=== PATIENT | male | born 1945 | race Caucasian/White ===

== ENCOUNTER 2019-09-23 01:05 | Day surgery (SDC) | payer MEDICARE, SELFPAY ==
[2019-09-23] VITALS (12 sets, daily range): BP systolic 116–165; BP diastolic 82–126; PULSE 78–105; RESP 10–24; TEMP 36.1; O2SAT 92–98; BMI 33.6
--- NOTE | 2019-09-23 09:30 | SUR.PREOP ---
ARRIVES TO [facility] W/ AT SIDE FOR SCHEDULED HALEY W/ DR. CORDON. A&OX3, STEADY GAIT. DENIES CP OR SOB. ORIENTED TO ROOM AND PLAN, PROCEDURE. QUESTIONS ANSWERED. IV STARTED, VS OBTAINED, CONSENT SIGNED. WILL MONITOR.
--- NOTE | 2019-09-23 10:58 | WPDMODSED ---
Moderate Sedation Note-Pt Data Patient Data Allergies Allergy/AdvReac Type Severity Reaction Status Date / Time No Known Allergies Allergy Unknown Unverified 09/23/19 09:59 Home Medications Medication Instructions Recorded Confirmed Type amlodipine 10 mg PO DAILY 07/14/19 09/23/19 History atorvastatin 80 mg PO DAILY 07/14/19 09/23/19 History acetaminophen [Mapap 650 mg PO Q4H PRN #60 tablet 07/15/19 09/23/19 Rx (acetaminophen)] apixaban [Eliquis] 5 mg PO Q12HR #60 tablet 07/15/19 09/23/19 Rx potassium chloride 20 meq PO DAILY #60 tablet 07/15/19 09/23/19 Rx hydralazine 50 mg tablet 75 mg PO TID #270 tablet 09/02/19 09/23/19 Rx metoprolol succinate 200 mg 200 mg PO DAILY #90 tablet 09/02/19 09/23/19 Rx tablet,extended release 24 hr furosemide 20 mg PO BID 09/23/19 09/23/19 History potassium chloride 10 meq PO 1400 09/23/19 09/23/19 History Sedation/Anesthesia: No previous sedation/anesthesia problems (including family history). [facility] Past Medical History Medical History (HFpEF) heart failure with preserved ejection fraction Arthritis Bronchitis CHF (congestive heart failure) Diverticulitis DM II (diabetes mellitus, type II), controlled History of heart attack History of kidney stones Hypercholesteremia Hypertension Mitral insufficiency Personal history of kidney cancer lt Pulmonary HTN Ulcer Surgical History Surgical History History of angioplasty History of appendectomy History of tonsillectomy Hx of cardiac cath with stent placement Family History Family History Father Colon cancer Social History Social History Social History: 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 , he has 3 children and she has 2 children. Smoking packs per day: 1 Smoking cigarettes per day: 20.0 Years smoked: 25 Smoking pack-years: 25.00 Smoking status: Former smoker Tobacco type: cigarettes Second hand tobacco smoke exposure: No Smoking end date: 08/18/97 Alcohol intake: current Drinks per week: 2 Substance use: never Substance use type: does not use Gender identity (if verbalized by the patient): Male Spiritual care concerns: No Mod Sed Physical Exam Physical Exam Pre Procedural Exam: Normal: Appearance, Eyes, Ears, Nose, Neck, Throat, Airway, Lungs, Heart Size, Heart Rate, Heart Rhythm, Neuro Exam, Abdomen, Liver, Kidneys, Spleen, Breasts, Genitalia, Extremities and Skin Hours since solid foods: 8 Hours since liquid intake: 8 Internal Medicine - PN: Obj Da Vital Signs Vital Signs: Vital Signs - 24 hr 09/23/19 10:30 09/23/19 10:35 09/23/19 10:40 Pulse Rate 93 103 H 105 H Respiratory Rate 10 L 14 Blood Pressure 165/105 H 150/104 H 162/119 H Pulse Oximetry 96 93 93 09/23/19 10:45 09/23/19 10:50 09/23/19 10:55 Pulse Rate 89 94 95 Respiratory Rate 12 20 16 Blood Pressure 162/111 H 154/112 H 154/126 H Pulse Oximetry 98 94 96 ASA Classification/Sedation ASA Classification/Sedation ASA Class: I Emergent: No Risks: Risks, benefits and alternatives explained and patient/family accepted plan for sedation. Patient re-evaluated immediately prior to sedation.
--- NOTE | 2019-09-23 10:58 | WPDHPUPDATE1 ---
History and Physical Update Update Date/Time: 09/23/19 10:58 History and Physical has been reviewed, including an updated exam of the patient. There are NO changes in the patient's condition. Risks, benefits, and alternatives have been discussed and questions answered. Patient agrees to proceed with procedure.
--- NOTE | 2019-09-23 10:58 | WPDTEECHO ---
HALE[facility] TransEsophageal Echocardiogram Date of procedure: 09/23/19 Procedure Type: Date of service: 09/23/2019. 1-transesophageal echocardiogram. 2-moderate sedation that started at 10:28 a.m. and ended that 10:55 a.m. total duration 27 minutes using 5 mg of Versed and 100 mcg of fentanyl. The registered nurse was Lisa Caputo. Diagnosis: This 74-year-old patient with hypertension, diabetes, CKD, renal cancer status post cryoablation to the left kidney, abuse diverticulosis had a STEMI in 2018 and received this stent 3.5 x 20 to the LAD. Also he had high-grade stenosis in mid PDA as well as high-grade stenosis in a small right posterolateral branch. He was recently hospitalized to [facility] end of the 2018 with shortness of breath and was found to have atrial fibrillation. The echocardiogram suggestive of moderate to severe eccentric mitral valve regurgitation. TSH was normal. He was initiated on Eliquis. His creatinine was 2.6. He was brought into the hospital today to undergo transesophageal echocardiogram to further evaluate the mitral valve regurgitation. Indications: Evaluation for mitral valve regurgitation Image Quality: Excellent Findings: 1-left ventricle normal size and systolic function with estimated ejection fraction 55%. 2-right ventricle : Normal size and systolic function. 3-left atrium: Enlarged. 4-right atrium: Normal size. 5-left atrial appendage: No clots. 6-interatrial septum: No evidence of shunt by color Doppler. 7-mitral valve: Thickened anterior mitral valve leaflet tip. Central mitral valve regurgitation. Pisa measured at 0.5 cm. Moderate mitral regurgitation. No stenosis. 8-aortic valve: Trileaflet. Mildly calcified. No stenosis or regurgitation. 9-tricuspid valve: Mild to moderate tricuspid valve regurgitation. RVSP was 30 mm Hg. 10-pulmonic valve: No regurgitation stenosis. 11-pulmonary vein blood flow: Normal with no systolic reversal. 12-ascending aorta: Normal caliber without significant atheroma. 13-descending aorta: Normal caliber without significant atheroma. 14-pericardium: No pericardial effusion. Conclusions: 1-Carmella LV systolic function estimated ejection fraction 55%. 2-moderate mitral valve regurgitation.
== END 2019-09-23 12:30 | disposition home or self-care (01) ==
PROVIDERS: PCP Family Medicine; Visit Provider Internal Medicine Cardiovascular Disease
PROC: (CPT 93312; principal; 2019-09-23 10:00)
DX: I34.0 Nonrheumatic mitral (valve) insufficiency (principal); I36.1 Nonrheumatic tricuspid (valve) insufficiency; I13.0 Hypertensive heart and chronic kidney disease with heart failure and stage 1 through stage 4 chronic kidney disease, or unspecified chronic kidney disease; I50.9 Heart failure, unspecified; E11.22 Type 2 diabetes mellitus with diabetic chronic kidney disease; N18.9 Chronic kidney disease, unspecified; I25.2 Old myocardial infarction; I25.10 Atherosclerotic heart disease of native coronary artery without angina pectoris; Z95.5 Presence of coronary angioplasty implant and graft; Z79.01 Long term (current) use of anticoagulants; E78.00 Pure hypercholesterolemia, unspecified; Z85.528 Personal history of other malignant neoplasm of kidney
CPT/HCPCS: 93312; 93320; 93325; J2250; J3010; J7040

== ENCOUNTER 2019-10-21 05:02 | Day surgery (SDC) | payer MEDICARE, SELFPAY ==
[2019-10-21] VITALS (8 sets, daily range): BP systolic 97–133; BP diastolic 67–110; PULSE 51–76; RESP 14–18; O2SAT 95–100
--- NOTE | 2019-10-21 07:00 | ECG_ITS ---
Measurements Intervals [place] Rate: 75 P: CA: 0 QRS: -30 QRSD: 117 T: 59 QT: 424 QTc: 475 Interpretive Statements ATRIAL FIBRILLATION INTRAVENTRICULAR CONDUCTION DELAY DELAYED PRECORDIAL R/S TRANSITION BORDERLINE ST-T WAVE ABNORMALITY- LATERAL LEADS BASELINE ARTIFACT- II, III, V4 ABNORMAL ECG Electronically Signed On 10-21-2019 11:03:30 LAUNCH LEADER by Vikram Ochoa D.O.
--- NOTE | 2019-10-21 07:43 | SUR.PREOP ---
0715-pt presents to the [facility] for a CV. No distress noted. EKG performed and found to be A FIB. PIV started and labs obtained and sent per order. Chest shaved. Questions answered and verbalized understanding. Consent signed. Will continue to monitor.
[2019-10-21 07:45] LABS: Hematocrit 30.4 % (42.0-52.0); Hemoglobin 9.9 g/dL (14.0-18.0); Mean Corpuscular HGB Conc 32.6 g/dl (32-36); Mean Corpuscular Hemoglobin 30.4 pg (26-34); Mean Corpuscular Volume 93.3 fl (80-100); Mean Platelet Volume 9.3 fl (7.4-10.4); Platelet Count Result 215 k/mm3 (150-375); Red Blood Count 3.26 M/mm3 (4.6-6.20); Red Cell Distribution Width 14.2 % (11.5-14.5); White Blood Count 9.5 K/mm3 (4.5-10.0)
[2019-10-21 07:57] LABS: Blood Urea Nitrogen 52 mg/dL (9-20); Calcium 8.5 mg/dL (8.4-10.2); Carbon Dioxide 19 mmol/L (22-30); Chloride 104 mmol/L (98-107); Estimated Glomerular Filt Rate 19; Glucose 167 mg/dL (75-110); Magnesium 2.2 mg/dL (1.6-2.3); Potassium 3.6 mmol/L (3.4-5.0); Sodium 141 mmol/L (137-145)
--- NOTE | 2019-10-21 08:41 | ECG_ITS ---
Measurements Intervals [place] Rate: 58 P: 81 NV: 204 QRS: -31 QRSD: 122 T: 12 QT: 478 QTc: 471 Interpretive Statements SINUS BRADYCARDIA WITH FIRST DEGREE AV BLOCK ATRIAL PREMATURE COMPLEXES LEFT AXIS DEVIATION INTRAVENTRICULAR CONDUCTION DELAY DELAYED PRECORDIAL R/S TRANSITION BORDERLINE ST-T WAVE ABNORMALITY- INF/LAT LEADS BASELINE ARTIFACT- II, III BORDERLINE ECG Electronically Signed On 10-22-2019 7:58:33 RESPIRATORY TECH by Vikram MARADIAGA
--- NOTE | 2019-10-21 08:42 | WPDHPUPDATE1 ---
History and Physical Update Update Date/Time: 10/21/19 08:42 History and Physical has been reviewed, including an updated exam of the patient. There are NO changes in the patient's condition. Risks, benefits, and alternatives have been discussed and questions answered. Patient agrees to proceed with procedure.
--- NOTE | 2019-10-21 08:42 | WPDMODSED ---
Moderate Sedation Note-Pt Data Patient Data Allergies Allergy/AdvReac Type Severity Reaction Status Date / Time No Known Allergies Allergy Unknown Unverified 09/23/19 09:59 Home Medications Medication Instructions Recorded Confirmed Type amlodipine 10 mg PO DAILY 07/14/19 10/21/19 History atorvastatin 80 mg PO DAILY 07/14/19 10/21/19 History Eliquis 5 mg PO Q12HR #60 tablet 07/15/19 10/21/19 Rx acetaminophen [Mapap 650 mg PO Q4H PRN #60 tablet 07/15/19 10/21/19 Rx (acetaminophen)] hydralazine 50 mg tablet 75 mg PO TID #270 tablet 09/02/19 10/21/19 Rx metoprolol succinate 200 mg 200 mg PO DAILY #90 tablet 09/02/19 10/21/19 Rx tablet,extended release 24 hr furosemide 20 mg PO BID 09/23/19 10/21/19 History potassium chloride 10 meq PO QPM 10/21/19 10/21/19 History potassium chloride 20 meq PO QAM 10/21/19 10/21/19 History Current Medications: Active Medications Sodium Chloride (Normal Saline Iv) 1,000 mls @ 30 mls/hr IV CONT .Q24H YING Sedation/Anesthesia: No previous sedation/anesthesia problems (including family history). [facility] Past Medical History Medical History (HFpEF) heart failure with preserved ejection fraction Arthritis Bronchitis CHF (congestive heart failure) Diverticulitis DM II (diabetes mellitus, type II), controlled History of heart attack History of kidney stones Hypercholesteremia Hypertension Mitral insufficiency Personal history of kidney cancer lt Pulmonary HTN Ulcer Surgical History Surgical History History of angioplasty History of appendectomy History of tonsillectomy Hx of cardiac cath with stent placement Family History Family History Father Colon cancer Social History Social History Social History: Were 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 , he has 3 children and she has 2 children. Smoking packs per day: 1 Smoking cigarettes per day: 20.0 Years smoked: 25 Smoking pack-years: 25.00 Smoking status: Former smoker Tobacco type: cigarettes Second hand tobacco smoke exposure: No Smoking end date: 08/18/97 Alcohol intake: current Drinks per week: 2 Substance use: never Substance use type: does not use Gender identity (if verbalized by the patient): Male Spiritual care concerns: No Mod Sed Physical Exam Physical Exam Pre Procedural Exam: Normal: Appearance, Eyes, Ears, Nose, Neck, Throat, Airway, Lungs, Heart Size, Heart Rate, Heart Rhythm, Neuro Exam, Abdomen, Liver, Kidneys, Spleen, Breasts, Genitalia, Extremities and Skin Hours since solid foods: 8 Hours since liquid intake: 8 Internal Medicine - PN: Obj Da Vital Signs Vital Signs: Vital Signs - 24 hr 10/21/19 07:31 Pulse Rate 74 Respiratory Rate 14 Blood Pressure 133/110 H Pulse Oximetry 100 Meds/Results Medications: Active Medications Generic Name Dose Route Start Last Admin Trade Name Chaceq PRN Reason Stop Dose Admin Sodium Chloride 1,000 mls @ 30 mls/hr 10/21/19 05:55 Normal Saline Iv IV CONT .Q24H YING Labs CBC & Chem 7: 10/21/19 07:36 10/21/19 07:36 Labs: Laboratory Results - last 24 hr 10/21/19 10/21/19 07:36 07:36 WBC 9.5 RBC 3.26 L Hgb 9.9 L Hct 30.4 L MCV 93.3 MCH 30.4 MCHC 32.6 RDW 14.2 Plt Count 215 MPV 9.3 Sodium 141 Potassium 3.6 Chloride 104 Carbon Dioxide 19 L BUN 52 H Creatinine 3.20 H Estim Creat Clear Calc Not Reportable Estimated GFR 19 L Glucose 167 H Calcium 8.5 Magnesium 2.2 ASA Classification/Sedation ASA Classification/Sedation ASA Class: I Emergent: No Risks: Risks, benefits and alternatives explained and patient/family
--- NOTE | 2019-10-21 08:43 | WPDCARDVER ---
Cardioversion Cardioversion Date of procedure: 10/21/19 Procedure: Date of service: 10/21/2019 Performing physician: Dr. Green Electric cardioversion for atrial fibrillation Pre-op diagnosis: Persistent atrial fibrillation Indications: Symptomatic atrial fibrillation. Patient experiences dyspnea on exertion fatigability and attributed to atrial fibrillation. Description of procedure: After informed consent, moderate sedation was administered then after that 200 joules of synchronized electric cardioversion was delivered through anteroposterior cardioversion pads with successful conversion of atrial fibrillation to sinus bradycardia with frequent premature atrial contractions. Sedation: Moderate sedation that started at 8:30 a.m. and ended at 8:35 a.m. with total duration 5 minutes using 3 mg of Versed and 75 mcg of fentanyl. The registered nurse was Roger lynn. Findings: Conversion of atrial fibrillation into sinus rhythm Conclusion: Successful cardioversion for atrial fibrillation into sinus bradycardia with premature atrial contractions.
--- NOTE | 2019-10-21 10:44 | SUR.PHASEII ---
0950-pt given D/C orders and instructions. Questions answered and verbalized understanding. AOx4. No distress noted. Taken via wheelchair to waiting vehicle. No distress noted or verbalized at time of departure.
== END 2019-10-21 09:50 | disposition home or self-care (01) ==
PROVIDERS: PCP Family Medicine; Visit Provider Internal Medicine Cardiovascular Disease
PROC: 5A2204Z Restoration of Cardiac Rhythm, Single (ICD-10-PCS; principal; 2019-10-21 08:30)
DX: I48.19 Other persistent atrial fibrillation (principal); I12.9 Hypertensive chronic kidney disease with stage 1 through stage 4 chronic kidney disease, or unspecified chronic kidney disease; N18.3 Chronic kidney disease, stage 3 (moderate); I25.10 Atherosclerotic heart disease of native coronary artery without angina pectoris; I25.2 Old myocardial infarction; I34.0 Nonrheumatic mitral (valve) insufficiency; E11.22 Type 2 diabetes mellitus with diabetic chronic kidney disease; Z85.528 Personal history of other malignant neoplasm of kidney; Z79.82 Long term (current) use of aspirin; Z79.01 Long term (current) use of anticoagulants
CPT/HCPCS: 36415; 80048; 83735; 85027; 92960; 93005; J2250; J3010; J7040

== ENCOUNTER 2020-02-25 12:52 | Inpatient (IN) | payer MEDICARE, SELFPAY ==
[2020-02-25] VITALS (11 sets, daily range): BP systolic 115–184; BP diastolic 60–92; PULSE 54–66; RESP 14–20; TEMP 36.4–36.8; O2SAT 92–97; BMI 34.7
--- NOTE | ~2020-02-25 | XR_ITS ---
EXAMINATION: XR chest 2V DATE: 02/25/2020 13:50 INDICATION: Shortness of breath. TECHNIQUE: Frontal and lateral views of the chest were obtained. COMPARISON: Chest 2 views 07/13/2019, chest CT 05/20/2018 FINDINGS: There are small pleural effusions. There are airspace opacities at the lung bases. No pneum othorax. The heart size is normal. IMPRESSION: 1. Small pleural effusions. 2. Airspace opacities at the lung bases, consistent with atelectasis versus pneumonia. Reviewed, dictated and finalized at location A. IMPRESSION: 1. Small pleural effusions. 2. Airspace opacities at the lung bases, consistent with atelectasis versus pne umonia.
--- NOTE | ~2020-02-25 | XR_ITS ---
EXAMINATION: XR chest 2V DATE: 02/27/2020 07:39 INDICATION: Congestive heart failure. Shortness of breath. TECHNIQUE: Frontal and lateral views of the chest were obtained. COMPARISON: Chest 2 views 02/25/2020 FINDINGS: There are small pleural effusions. There are airspace opacities at the lung bases. No pneum othorax. The heart size is normal. IMPRESSION: 1. Stable small pleural effusions. 2. Airspace opacities at the lung bases with improvement on the left, consistent with atelectasis nick arianna pneumonia. Reviewed, dictated and finalized at location A. IMPRESSION: 1. Stable small pleural effusions. 2. Airspace opacities at the lung bases with improvement on the left, consisten t with atelectasis versus pneumonia.
--- NOTE | 2020-02-25 13:03 | ECG_ITS ---
Measurements Intervals [place] Rate: 65 P: 43 ME: 208 QRS: -26 QRSD: 125 T: 40 QT: 446 QTc: 467 Interpretive Statements SINUS RHYTHM WITH FIRST DEGREE AV BLOCK INTRAVENTRICULAR CONDUCTION DELAY POOR R WAVE PROGRESSION, ANTERIOR LEADS BORDERLINE ST-T WAVE ABNORMALITY- HIGH LATERAL LEADS BASELINE ARTIFACT- I, II, III, AVR, V6 ABNORMAL ECG Electronically Signed On 02-25-2020 13:19:47 CDT by Vikram Ochoa D.O.
[2020-02-25 13:11] LABS: Hematocrit 36.1 % (42.0-52.0); Hemoglobin 11.6 g/dL (14.0-18.0); Mean Corpuscular HGB Conc 32.1 g/dl (32-36); Mean Corpuscular Hemoglobin 30.7 pg (26-34); Mean Corpuscular Volume 95.5 fl (80-100); Platelet Count Result 215 k/mm3 (150-375); Red Blood Count 3.78 M/mm3 (4.6-6.20); Red Cell Distribution Width 14.8 % (11.5-14.5); White Blood Count 10.5 K/mm3 (4.5-10.0)
[2020-02-25 13:12] LABS: Basophils Absolute Auto 0.1 K/mm3 (0.0-0.1); Basophils Percent Auto 0.7 % (0.2-1.2); Eosinophils Absolute Auto 0.1 K/mm3 (0-0.3); Eosinophils Percent Auto 0.9 % (0-4.4); Immature Granulocyte Absolute 0.07 K/mm3 (0.00-0.031); Immature Granulocyte Percent A 0.7 % (0-0.5); Lymphocytes Absolute Auto 0.62 K/mm3 (0.9-3.2); Lymphocytes Percent Auto 5.9 % (18.3-44.2); Mean Platelet Volume 9.2 fl (7.4-10.4); Monocytes Absolute Auto 0.8 K/mm3 (0.1-0.6); Monocytes Percent Auto 7.3 % (2.6-8.5); Neutrophils Absolute Auto 8.9 K/mm3 (1.3-6.7); Neutrophils Percent Auto 84.5 % (45.5-73.1)
[2020-02-25 13:21] LABS: Partial Thromboplastin Time 40.2 SECONDS (22.3-36.8)
[2020-02-25 13:23] LABS: Blood Urea Nitrogen 55 mg/dL (9-20); Calcium 8.9 mg/dL (8.4-10.2); Carbon Dioxide 23 mmol/L (22-30); Chloride 106 mmol/L (98-107); Estimated CRCL calculation 18 ml/min; Estimated Glomerular Filt Rate 17; Glucose 141 mg/dL (75-110); Potassium 3.7 mmol/L (3.4-5.0); Sodium 139 mmol/L (137-145)
[2020-02-25 13:35] LABS: NT Pro B Type Natriuretic Pept 7540 PG/ML (5-100); Troponin I 0.023 ng/mL (0.000-0.034)
--- NOTE | 2020-02-25 14:42 | ED.SOB ---
HPI - SOB/Dyspnea General Chief Complaint: Shortness of Breath/Dyspnea Stated Complaint: SOB, Coughing up blood Time Seen by Provider: 02/25/20 13:17 History of Present Illness HPI Narrative: Patient is a 74-year-old male who presents the ER with shortness of breath. Patient had recent cardioversion yesterday for atrial fibrillation by Dr. Lu. Patient reports he is taking amiodarone 200 mg daily for the last 3 weeks. He is on a blood thinner. No chest pain. Began having dyspnea last night. He has also been having some frothy cough with blood-tinged sputum. No fevers or chills. Compliant with medications. Has had increased lower extremity swelling over the last 3 to 4 days. Related Data Home Medications Medication Instructions Recorded Confirmed atorvastatin 40 mg PO DAILY 07/14/19 10/21/19 furosemide 20 mg PO BID 09/23/19 10/21/19 potassium chloride 10 meq PO QPM 10/21/19 10/21/19 potassium chloride 20 meq PO QAM 10/21/19 10/21/19 amiodarone 200 mg DAILY 02/25/20 amlodipine 10 mg DAILY 02/25/20 metoprolol succinate 100 mg PO DAILY 02/25/20 Allergies Allergy/AdvReac Type Severity Reaction Status Date / Time No Known Allergies Allergy Unknown Verified 02/25/20 15:15 Review of Systems Review of Systems: All systems reviewed & are unremarkable except as noted in HPI and below Constitutional: Constitutional: Denies chills, Denies fever(s) and Reports weakness ENT: Denies nasal congestion and Denies sore throat Cardiovascular: Cardiovascular: Denies chest pain and Denies radiating jaw, neck or arm pain Respiratory: Respiratory: Reports cough, Reports dyspnea and Denies wheezing Gastrointestinal: Gastrointestinal: Denies abdominal pain, Denies diarrhea, Denies nausea and Denies vomiting Musculoskeletal: Comments: Lower extremity edema PMFSH Social History Social History Social History: Were Keetch 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 , he has 3 children and she has 2 children. Smoking packs per day: 1 Smoking cigarettes per day: 20.0 Years smoked: 25 Smoking pack-years: 25.00 Smoking status: Former smoker Tobacco type: cigarettes Second hand tobacco smoke exposure: No Smoking end date: 08/18/97 Alcohol intake: current Drinks per week: 2 Substance use: never Substance use type: does not use Gender identity (if verbalized by the patient): Male Spiritual care concerns: No Exam Narrative: Exam Narrative: GENERAL: Well-appearing, well-nourished, and in no acute distress. HEAD: Normocephalic, atraumatic. CHEST: Clear to auscultation. Dyspneic at rest and speaks in 5-6 word sentences. HEART: Regular rate and rhythm. Normal peripheral pulses. ABDOMEN: Soft, nontender, nondistended. EXTREMITIES: Normal range of motion. 2+ edema. SKIN: Warm, dry, no rash. NEURO: Alert and oriented x3. PSYCH: Normal mood and affect. Course Course Emergency Course: Discussed case with Светлана Berman NP, recommends admission to medicine and Dr. Brooks will consult. Patient be started on Lasix 40 mg and we will see has dyspnea responds and follow his creatinine. Admit to hospitalist service. Vital Signs Vital signs: Vital Signs Temperature 97.8 F 02/25/20 12:58 Pulse Rate 66 02/25/20 12:58 Respiratory Rate 20 02/25/20 12:58 Blood Pressure 177/88 H 02/25/20 12:58 Pulse Oximetry 94 02/25/20 12:58 Temperature 98.3 F 02/25/20 15:22 Pulse Rate 54 L 02/25/20 15:22 Respiratory Rate 20 02/25/20 15:22 Blood Pressure 161/86 H 02/25/20 15:22 Pulse Oximetry 97 02/25/20 15:22 MDM - SOB/Dyspnea Lab Data Result diagrams: 02/25/20 13:06 02/25/20 13:06 Labs: Lab Results 02/25/20 02/25/20 02/25/20 Range/Units 13:06 13:06 13:06 WBC 10.5 H (4.5-10.0) K/mm3 RBC 3.78 L (4.6-6.20) M/
[2020-02-25] MEDS: FUROSEMIDE INJ 40 MG/4 ML VIAL IV PUSH (15:12)
--- NOTE | 2020-02-25 17:58 | PM.CNCAR ---
Assessment and Plan Additional Plan 74-year-old man with: Picture of fluid overload and congestive heart in the setting of mitral valve regurgitation, ischemic heart disease with good left ventricular systolic function and recent recurrent atrial fibrillation for several months now cardioverted to sinus rhythm yesterday. He does have chronic kidney disease and according to the lab dated this looks like it has progressed since the last 6 months as well. His home medical regimen includes amiodarone, amlodipine, atorvastatin, apixaban, hydralazine, metoprolol and a modest dose of furosemide. I would recommend continuing the medical regimen other than shifting him to high-dose IV furosemide to try to affect diuresis. We going to have to probably use high doses of furosemide given his poor glomerular filtration rate. Prognosis here is guarded given the combination of mitral valve regurgitation and renal failure. We will follow him with you and hopefully we can bring him to the state of euvolemia. Efren Brooks MD [facility] History of Present Illness History of Present Illness Consult date/time: 02/25/20 17:58 Consult reason: shortness of breath Reason For Visit: Shortness of breath. Narrative: This is a 74-year-old man I am seeing at the request of the hospitalist's this evening. The patient seen in the emergency room earlier this afternoon complaining of increasing shortness of breath and was admitted after being evaluated. He was admitted with the diagnosis of congestive heart failure. The patient is unknown to me but is followed closely by my partner Dr. Green. He has a history of coronary artery disease, mitral valve regurgitation and paroxysmal atrial fibrillation. He also has chronic kidney disease. The patient was noticing increasing shortness of breath for the last month or 2. He was attributing this to being in atrial fibrillation and was hoping that the symptoms would get better following cardioversion. He was significantly short of breath last evening having data set up in is unable to lay down in bed and he was noticing accumulating lower extremity edema and for this reason he came into the hospital. He has a history of coronary artery disease with initially presenting in May of 2018 he was brought to the cardiac catheterization lab and found to have a totally occluded anterior descending artery nondominant circumflex and a high-grade stenosis in the mid PDA. Intervention in the occluded LAD was performed successfully using a 3.5 x 20 mm drug-eluting stent and he recovered from that well. At that time his creatinine was in the low 2.2 range his medical regimen consisted of ear bis are arriaza aspirin Brilinta and atorvastatin. His ARB was stopped shortly after that because of renal insufficiency at the advice of his supervisor cook house, Dr. Sevilla. The patient was clinically doing reasonably well until late last year when he developed atrial fibrillation and he became more short of breath and had symptoms of exertional intolerance. The notes in the chart are somewhat conflicting in that some of the notes indicated he felt well and had minimal symptoms and other notes indicated he was describing relatively disabling shortness of breath. In any event he was cardioverted in October of this year at [facility] by Dr. judie christopher try to restore sinus rhythm. He only stayed in sinus rhythm for less than 48 hours and recurred back into atrial fibrillation. A long discussion was had about the approach at that time he was referred to an grab jack man at [facility] who decided to load him with amiodarone orally and attempt another cardioversion. He was well loaded with oral amiodarone actually cardioverted to sinus rhythm yesterday morning at that hospital. He still is in sinus rhythm today and from that respect has had a successful cardioversion albeit for only 24 hours. His laboratory data in admission here demonstrate worsening of his renal func
[2020-02-25] MEDS: ACETAMINOPHEN 325 MG TABLET 650 MG PO (18:18)
--- NOTE | 2020-02-25 19:00 | PM.IMHP ---
H&P: HPI History of Present Illness Chief complaint: Shortness of breath. Narrative: Elias Aguirre is a 74-year-old male with paroxysmal atrial fibrillation, coronary artery disease status post drug-eluting stent to the LAD in May 2018, hypertension, hyperlipidemia, mitral valve regurgitation, congestive heart failure, chronic kidney disease, chronic anemia, and type 2 diabetes mellitus who presented to the emergency department earlier this afternoon from home for evaluation of shortness of breath. He developed atrial fibrillation in September of 2019 and a HALEY done shortly thereafter showed moderate mitral valve regurgitation. He was cardioverted to normal sinus rhythm on 10/21/[address] Green and it sounds as though he maintained sinus rhythm for several months. He went back into atrial fibrillation was started on amiodarone 400 milligrams b.i.d. around the 16 of December. Not long after starting the amiodarone, he developed cough which he attributed to the drug, and his dose was decreased to 200 milligrams b.i.d. He maintained sinus rhythm for some time however did revert back to atrial fibrillation and he is now status post cardioversion per Dr. Lu, performed just yesterday on 02/24/2020 at [facility]. He was sleepy post procedure but otherwise felt better. Overnight he had increasing shortness of breath and in the wee hours this morning he developed a cough productive of pink frothy sputum. With further questioning, it sounds as though he has had orthopnea for the past 3 weeks and he also notes increasing lower extremity edema over the past 24 hours or so. He has gained about 15 pounds since October, some which he attributes to not being able to go out about in the community due to [id number] orders. He also notes that he has been having increasing difficulties walking from the parking lot to work, due to shortness of breath. At the time my evaluation he is lying on his side in bed and reports feeling much better after diuresis. He has not had chest pain, pleuritic pain, palpitations, nausea, vomiting, or sweats. Review of Systems Review of Systems: Narrative: Twelve systems were reviewed with pertinent positives and negatives as per HPI. No fever, chills, or sweats. He denies recent cold and flu symptoms. He does suffer from seasonal allergies and has frequent runny nose and itchy watery eyes, and occasional postnasal drip with dry cough. Appetite has been good. No nausea or vomiting. He denies diarrhea and constipation. No dysuria. He has never been diagnosed with BPH however reports having to get up to use the restroom at least 3 times during the night. Except as documented, all other systems were reviewed and are negative. [facility] Past Medical History Medical History (Updated 02/25/20 @ 20:02 by Maya Castorena PA-C) Anemia of chronic disease Arthritis Chronic kidney disease, stage 4 (severe) Coronary artery disease History of non STEMI in May 2018 status post drug-eluting stent to the LAD. 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 Diverticulitis Heart failure with preserved ejection fraction Echocardiogram in June 2019 showed a severely enlarged left atrial chamber, normal left ventricular size with moderate concentric left ventricular hypertrophy, left ventricular function is at the lower end of normal with an estimated ejection fraction 50-55% (although calculated at 63%), no wall motion abnormalities, moderate aortic valve calcification with no significant stenosis, moderate to moderately severe eccentric mitral valve regurgitation, mild tricuspid valve regurgitation, estimated pulmonary arterial systolic pressure of 32 mmHg, dilated inferior vena cava with <50% collapse upon inspiration consistent with elevated right atrial pressure, 10 mmHg. Hypercholesteremia Hypertension Kidney stones (~2008) Paroxysmal atrial fibrillation Status post cardioversion in October 2019 and February 2020. Peptic ulcer disease Renal c
[2020-02-25] MEDS: APIXABAN 5 MG TABLET PO (20:43)
[2020-02-25] MEDS: hydrALAZINE HCL 25 MG TABLET 75 MG PO (20:43)
[2020-02-26] VITALS (17 sets, daily range): BP systolic 134–167; BP diastolic 63–83; PULSE 47–109; RESP 16–22; TEMP 36.1–36.7; O2SAT 88–98
[2020-02-26 05:05] LABS: Alanine Aminotransferase 25 U/L (4-50); Albumin Level 3.9 g/dL (3.5-5.1); Alkaline Phosphatase 73 U/L (38-126); Aspartate Amino Transferase 22 U/L (17-59); Bilirubin,Total 0.9 mg/dL (0.2-1.3); Blood Urea Nitrogen 49 mg/dL (9-20); Calcium 8.8 mg/dL (8.4-10.2); Carbon Dioxide 25 mmol/L (22-30); Chloride 104 mmol/L (98-107); Estimated CRCL calculation 18 ml/min; Estimated Glomerular Filt Rate 17; Glucose 122 mg/dL (75-110); Magnesium 2.2 mg/dL (1.6-2.3); Potassium 3.2 mmol/L (3.4-5.0); Sodium 139 mmol/L (137-145)
[2020-02-26] MEDS: hydrALAZINE HCL 25 MG TABLET 75 MG PO ×2 (09:16→17:11)
[2020-02-26] MEDS: POTASSIUM CHLORIDE 20 MEQ TABLET PO ×2 (09:16→17:10)
[2020-02-26] MEDS: METOPROLOL SUCCINATE EXT REL 100 MG TABCR PO (09:16)
[2020-02-26] MEDS: amLODIPine BESYLATE 5 MG TABLET 10 MG PO (09:17)
[2020-02-26] MEDS: AMIODARONE HCL 200 MG TABLET PO (09:17)
[2020-02-26] MEDS: APIXABAN 5 MG TABLET PO ×2 (09:17→20:50)
[2020-02-26] MEDS: ATORVASTATIN 40 MG TABLET PO (09:17)
[2020-02-26] MEDS: FUROSEMIDE INJ 100 MG/10 ML VIAL 80 MG IV PUSH ×2 (09:18→17:11)
--- NOTE | 2020-02-26 09:26 | PM.PNCARD ---
Progress Note: A&P Additional Plan Continue current regimen patient is clinically improving. Still not euvolemic. Will continue the high-dose IV furosemide for at least 1 more day. Check follow-up chest x-ray tomorrow morning Efren Brooks MD [facility] Subjective Date/time seen: Date of service: 02/26/20 09:26 Interval history: Follow-up visit in this 74-year-old gentleman with history of coronary artery disease, mitral valve regurgitation, paroxysmal atrial fibrillation and chronic kidney disease. Admitted with fluid overload/CHF Patient is feeling some better this morning he has had a prompt diuresis with high-dose furosemide. Exam Const: General: comfortable and no acute distress HENMT: Mouth: Yes moist mucous membranes Eyes: Sclera: sclerae normal Neck: Neck: supple Thyroid: thyroid normal Resp: Effort & Inspection: normal respiratory effort Other: Still has some basilar crackles and dullness at the bases Cardio: Rate: regular rate Rhythm: regular rhythm Other: 2/6 crescendo decrescendo murmur at the left sternal border. GI: Auscultation: normal bowel sounds Neuro: Cognition (Neuro): normal cognition Extrem: Other: [id number] edema, appears to be improved compared with yesterday afternoon Objective Data Vital Signs Vital Signs: Vital Signs - 24 hr 02/25/20 12:58 02/25/20 14:40 02/25/20 15:22 Temperature 36.6 C 36.8 C Pulse Rate 66 57 L 54 L Respiratory Rate 20 19 20 Blood Pressure 177/88 H 156/77 H 161/86 H Pulse Oximetry 94 94 97 02/25/20 16:37 02/25/20 16:55 02/25/20 17:15 Temperature 36.8 C 36.5 C Pulse Rate 56 L 58 L 58 L Respiratory Rate 14 18 Blood Pressure 168/83 H 184/92 H Pulse Oximetry 94 97 02/25/20 18:00 02/25/20 19:44 02/25/20 20:00 Temperature 36.4 C Pulse Rate 59 L 60 65 Respiratory Rate 18 Blood Pressure 149/79 H Pulse Oximetry 92 02/25/20 21:59 02/25/20 23:37 02/26/20 00:00 Temperature 36.5 C Pulse Rate 59 L 58 L 59 L Respiratory Rate 18 Blood Pressure 115/60 Pulse Oximetry 92 02/26/20 02:00 02/26/20 03:45 02/26/20 04:00 Temperature 36.7 C Pulse Rate 58 L 58 L 59 L Respiratory Rate 22 H Blood Pressure 149/83 H Pulse Oximetry 93 02/26/20 06:00 02/26/20 08:00 02/26/20 09:16 Temperature 36.2 C L Pulse Rate 59 L 54 L 109 H Respiratory Rate 20 Blood Pressure 167/80 H Pulse Oximetry 94 02/26/20 09:17 Temperature Pulse Rate 109 H Respiratory Rate Blood Pressure Pulse Oximetry Intake/Output Intake/Output: Intake & Output 02/23/20 02/24/20 02/25/20 02/26/20 23:59 23:59 23:59 23:59 Output Total 1210 1600 Balance -1210 -1600 Meds/Results Medications: Active Medications Generic Name Dose Route Start Last Admin Trade Name Freq PRN Reason Stop Dose Admin Acetaminophen 650 mg 02/25/20 15:08 02/25/20 18:18 Tylenol Tablet PO 650 mg Q4H PRN Administration Mild Pain (1-3) or Fever Amiodarone HCl 200 mg 02/26/20 09:00 02/26/20 09:17 Pacerone PO 200 mg DAILY YING Administration Amlodipine Besylate 10 mg 02/26/20 09:00 02/26/20 09:17 Norvasc PO 10 mg DAILY YING Administration Apixaban 5 mg 02/25/20 21:00 02/26/20 09:17 Eliquis PO 5 mg Q12HR YING Administration Atorvastatin Calcium 40 mg 02/26/20 09:00 02/26/20 09:17 Lipitor PO 40 mg DAILY YING Administration Furosemide 80 mg 02/26/20 09:00 02/26/20 09:18 Lasix Inj IV PUSH 80 mg BID YING Administration Hydralazine HCl 75 mg 02/25/20 20:30 02/26/20 09:16 Apresoline Tablet PO 75 mg TID YING Administration Metoprolol Succinate 100 mg 02/26/20 09:00 02/26/20 09:16 Toprol Xl PO 100 mg DAILY YING Administration Ondansetron HCl 4 mg 02/25/20 15:08 Zofran Inj IV PUSH Q4H PRN Nausea Potassium Chloride 10 meq 02/26/20 18:00 Kcl Tablet PO QPM YING Potassium Chloride 20 meq 02/26/20 09:00 02/26/20 09:16 Kcl Tabl
--- NOTE | 2020-02-26 14:19 | PM.IMPN ---
Progress Note: A&P Assessment and Plan (1) Acute exacerbation of congestive heart failure: Qualifiers: Heart failure type: diastolic Qualified Code(s): I50.33 - Acute on chronic diastolic (congestive) heart failure Code(s): I50.9 - Heart failure, unspecified Status: Acute Assessment and Plan: He has had shortness of breath, cough, and increased orthopnea over the past several weeks, as well as increased lower extremity edema for the past 1-2 days. He is saturating at 98% on 2 L O2, he is not on home oxygen. Continue high-dose IV furosemide per Dr. Brooks. Plan to repeat CXR tomorrow. Continue to monitor volume status and renal function closely while diuresing. Continue to wean oxygen with goal saturation 92% or above (2) Chronic kidney disease, stage 4 (severe): Code(s): N18.4 - Chronic kidney disease, stage 4 (severe) Status: Acute Assessment and Plan: His creatinine is mildly worsened when compared to labs drawn just 6 months ago. I am not certain as to whether this may be progression of his disease versus decreased output due to the heart failure. Continue to monitor his renal function while diuresing. (3) Paroxysmal atrial fibrillation: Code(s): I48.0 - Paroxysmal atrial fibrillation Status: Acute Assessment and Plan: Status post cardioversion 02/24/[address] Lu at [facility]. Continue amiodarone and apixaban. (4) Hypertension: Qualifiers: Hypertension type: essential hypertension Qualified Code(s): I10 - Essential (primary) hypertension Code(s): I10 - Essential (primary) hypertension Status: Acute Assessment and Plan: Blood pressure was 177/80 on arrival to the emergency department but has since improved. Still mildly elevated today but displaying improvement. I suspect further improvement with diuresis. Continue antihypertensives and monitor blood pressure closely. (5) Hypokalemia: Code(s): E87.6 - Hypokalemia Status: Acute Assessment and Plan: Mildly low at 3.2, likely secondary to high-dose Lasix. Continue home potassium. He is on a total of 30 mEq per day. Monitor potassium closely. (6) Subclinical hypothyroidism: Code(s): E03.9 - Hypothyroidism, unspecified Status: Acute Assessment and Plan: TSH is 9.23. T4 is pending. Patient is asymptomatic. TSH may be affected by amiodarone. Repeat TSH in 6 weeks. Additional Plan Given stabilization and symptomatic improvement, will downgrade to medical floor Subjective Date/time seen: 02/26/20 14:19 Interval history: Date of service: 02/26/2020 He is feeling much better today. He states that he is breathing much better compared to yesterday. He did have a little bit of HOPPER when ambulating to the bathroom. Also still has orthopnea. He tells me that over the past 2 weeks he has been requiring to sleep in his recliner. He feels that his lower extremity edema has improved. He has occasional productive cough. He is urinating frequently due to his Lasix but denies dysuria or hematuria. His last bowel movement was yesterday. He denies abdominal pain, nausea, vomiting, fever, chills, diarrhea, dizziness, lightheadedness, or weakness. He has no additional concerns at this time. Review of Systems Review of Systems: Narrative: A 12 point review of systems was reviewed with pertinent positives and negatives as per HPI. Exam Narrative: Exam Narrative: Mr. Aguirre is examined alone today. He is a well-nourished 74-year-old male who is lying supine in bed. He appears comfortable and is in no acute respiratory distress. HR 59, BP 149/83, RR 22, T 98.0?, 98% on 2 L Neuro: awake, alert and oriented x4, speech clear, no focal neuro deficits noted HEENMT: normocephalic, atraumatic, EOMI, sclerae anicteric, moist oral mucosa Neck: supple, no lymphadenopathy Respiratory: Fa
[2020-02-26 15:06] LABS: Free T4 Free Thyroxine Reflex 1.52 ng/dL (0.78-2.19)
[2020-02-26 16:22] LABS: Total Triiodothyronine (T3) 0.72 NG/ML (0.97-1.69)
[2020-02-26] MEDS: POTASSIUM CHLORIDE 10 MEQ TABLET.ER PO (17:10)
--- NOTE | 2020-02-26 17:18 | PC.NURSE ---
This patient, Elias Aguirre, was transferred to [facility] on 02/26/20 at 1718. Personal belongings sent with patient. Report given to Norma. Appropriate documentation sent with patient.
--- NOTE | 2020-02-26 17:20 | PC.NURSE ---
This patient, Elias Aguirre, was received from IMU on 02/26/20 at 1720. Personal belongings list checked and signed. Patient/family oriented to unit policies and routines
[2020-02-27] VITALS (14 sets, daily range): BP systolic 118–142; BP diastolic 60–74; PULSE 46–71; RESP 16–18; TEMP 36.1–36.8; O2SAT 95–97
[2020-02-27] MEDS: ATORVASTATIN 40 MG TABLET PO (08:22)
[2020-02-27] MEDS: amLODIPine BESYLATE 5 MG TABLET 10 MG PO (08:22)
[2020-02-27] MEDS: APIXABAN 5 MG TABLET PO ×2 (08:22→20:40)
[2020-02-27] MEDS: FUROSEMIDE INJ 100 MG/10 ML VIAL 80 MG IV PUSH (08:23)
[2020-02-27] MEDS: hydrALAZINE HCL 25 MG TABLET 75 MG PO ×3 (08:24→17:12)
[2020-02-27] MEDS: POTASSIUM CHLORIDE 20 MEQ TABLET PO (08:25)
[2020-02-27 08:32] LABS: Blood Urea Nitrogen 48 mg/dL (9-20); Calcium 8.7 mg/dL (8.4-10.2); Carbon Dioxide 26 mmol/L (22-30); Chloride 103 mmol/L (98-107); Estimated CRCL calculation 19 ml/min; Estimated Glomerular Filt Rate 18; Glucose 190 mg/dL (75-110); Potassium 3.6 mmol/L (3.4-5.0); Sodium 140 mmol/L (137-145)
[2020-02-27] MEDS: METOPROLOL SUCCINATE EXT REL 100 MG TABCR PO (09:03)
[2020-02-27] MEDS: AMIODARONE HCL 200 MG TABLET PO (09:03)
--- NOTE | 2020-02-27 09:22 | PM.PNCARD ---
Progress Note: A&P Additional Plan Patient is doing well with volume overload is gradually resolving. Today I will discontinue intravenous furosemide he has already received this morning's dose and shift to a higher dose of oral furosemide starting the with this evening. Anticipate likely discharge tomorrow Efren Brooks MD [facility] Subjective Date/time seen: Date of service: 02/27/20 09:22 Interval history: Follow-up visit in 74-year-old man with volume overload/congestive heart failure Patient continues to improve daily and today feels minimal of any shortness of breath. Has continued improvement in his lower extremity edema. Discussed with the patient his dietary sodium habits Exam Const: General: comfortable and no acute distress HENMT: Mouth: Yes moist mucous membranes Eyes: Sclera: sclerae normal Pupils: Equal, round and reactive pupils present Neck: Neck: supple Thyroid: thyroid normal Resp: Effort & Inspection: normal respiratory effort Other: Continues to be dull at the bases bilaterally Cardio: Rate: regular rate and bradycardic Rhythm: regular rhythm Other: Grade 2/6 holosystolic apical murmur GI: Auscultation: normal bowel sounds Skin: General skin exam: normal color Neuro: Cognition (Neuro): normal cognition Extrem: General: normal to inspection Objective Data Vital Signs Vital Signs: Vital Signs - 24 hr 02/26/20 10:00 02/26/20 10:33 02/26/20 12:00 Temperature 36.2 C L Pulse Rate 51 L 54 L 48 L Respiratory Rate 16 20 Blood Pressure 157/80 H Pulse Oximetry 88 L 98 02/26/20 14:00 02/26/20 16:00 02/26/20 17:30 Temperature 36.3 C L Pulse Rate 49 L 47 L 55 L Respiratory Rate 20 Blood Pressure 134/67 Pulse Oximetry 97 02/26/20 18:00 02/26/20 20:00 02/26/20 21:12 Temperature 36.1 C L 36.4 C Pulse Rate 59 L 48 L 74 Respiratory Rate 20 18 Blood Pressure 138/63 137/71 Pulse Oximetry 94 98 02/27/20 00:00 02/27/20 01:52 02/27/20 04:00 Temperature 36.3 C L Pulse Rate 50 L 71 54 L Respiratory Rate 18 Blood Pressure 132/67 Pulse Oximetry 97 02/27/20 05:39 07/12/20 09:03 Temperature 36.3 C L Pulse Rate 59 L 50 L Respiratory Rate 18 Blood Pressure 140/74 Pulse Oximetry 95 Intake/Output Intake/Output: Intake & Output 02/24/20 02/25/20 02/26/20 02/27/20 23:59 23:59 23:59 23:59 Intake Total 840 600 Output Total 1210 2550 1900 Balance -1210 -1710 -1300 Meds/Results Medications: Active Medications Generic Name Dose Route Start Last Admin Trade Name Freq PRN Reason Stop Dose Admin Acetaminophen 650 mg 02/25/20 15:08 02/25/20 18:18 Tylenol Tablet PO 650 mg Q4H PRN Administration Mild Pain (1-3) or Fever Amiodarone HCl 200 mg 02/26/20 09:00 02/27/20 09:03 Pacerone PO 200 mg DAILY YING Administration Amlodipine Besylate 10 mg 02/26/20 09:00 02/27/20 08:22 Norvasc PO 10 mg DAILY YING Administration Apixaban 5 mg 02/25/20 21:00 02/27/20 08:22 Eliquis PO 5 mg Q12HR YING Administration Atorvastatin Calcium 40 mg 02/26/20 09:00 02/27/20 08:22 Lipitor PO 40 mg DAILY YING Administration Furosemide 40 mg 02/27/20 17:00 Lasix Tablet PO BID YING Hydralazine HCl 75 mg 02/25/20 20:30 02/27/20 08:24 Apresoline Tablet PO 75 mg TID YING Administration Metoprolol Succinate 100 mg 02/26/20 09:00 02/27/20 09:03 Toprol Xl PO 100 mg DAILY YING Administration Ondansetron HCl 4 mg 02/25/20 15:08 Zofran Inj IV PUSH Q4H PRN Nausea Potassium Chloride 10 meq 02/26/20 18:00 02/26/20 17:10 Kcl Tablet PO 10 meq QPM YING Administration Potassium Chloride 20 meq 02/26/20 09:00 02/27/20 08:25 Kcl Tablet PO 20 meq QAM YING Administration Radiology Results: ITS Impressions Chest X-Ray 02/27/20 07:51 IMPRESSION: 1. Stable small pleural effusions. 2. Airspace opacities at the lung bases with improvement on t
--- NOTE | 2020-02-27 09:46 | PM.IMPN ---
Progress Note: A&P Assessment and Plan (1) Acute exacerbation of congestive heart failure: Qualifiers: Heart failure type: diastolic Qualified Code(s): I50.33 - Acute on chronic diastolic (congestive) heart failure Code(s): I50.9 - Heart failure, unspecified Status: Acute Assessment and Plan: He experienced SOB, cough, and increased orthopnea over the past several weeks, as well as increased lower extremity edema for approximately 1-2 days prior to presentation. He has had significant symptomatic improvement and lungs are clear. LE edema is improving. CXR shows small stable pleural effusions. B[place] is 7540. Transition to PO furosemide [address] Brooks. Continue to monitor volume status and renal function closely while diuresing. Discontinue supplemental oxygen, patient is maintaining adequate oxygenation. Elevate lower extremities Continue heart healthy diet Continue daily weights (2) Chronic kidney disease, stage 4 (severe): Code(s): N18.4 - Chronic kidney disease, stage 4 (severe) Status: Acute Assessment and Plan: His creatinine is mildly worsened when compared to labs drawn 6 months ago. I am not certain as to whether this may be progression of his disease versus decreased output due to the heart failure. Cr has improved slightly today even with aggressive diuresis. Continue to monitor his renal function while diuresing. 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 (3) Paroxysmal atrial fibrillation: Code(s): I48.0 - Paroxysmal atrial fibrillation Status: Acute Assessment and Plan: Status post cardioversion 02/24/[address] Lu at [facility]. Rate is controlled. Continue amiodarone and apixaban. Continue to monitor on telemetry (4) Hypertension: Qualifiers: Hypertension type: essential hypertension Qualified Code(s): I10 - Essential (primary) hypertension Code(s): I10 - Essential (primary) hypertension Status: Acute Assessment and Plan: Blood pressure was elevated at presentation, probably due to volume overload, but but has since improved with diuresis. BP evaluated and stable at 140/74 today. Continue antihypertensives and monitor blood pressure closely. (5) Hypokalemia: Code(s): E87.6 - Hypokalemia Status: Acute Assessment and Plan: Potassium was mildly low yesterday, likely secondary to high-dose Lasix, and was replaced. Stable today at 3.6. Continue home potassium. He is on a total of 30 mEq per day. Monitor potassium closely. (6) Type 2 diabetes mellitus: Code(s): E11.9 - Type 2 diabetes mellitus without complications Status: Acute Assessment and Plan: He is not on insulin or oral hypoglycemics. He has been diet controlled. A1c in August was 5.2%. He has had elevated blood glucose noted on BMP. Begin moderate dose SSI, accuchecks ACHS, and hypoglycemic protocol Check updated A1c (7) Subclinical hypothyroidism: Code(s): E03.9 - Hypothyroidism, unspecified Status: Acute Assessment and Plan: TSH is 9.23. T4 is wnl and T3 is mildly low. Patient is asymptomatic. TSH may be affected by amiodarone. Repeat TSH in 6 weeks. Subjective Date/time seen: 02/27/20 09:46 Interval history: Date of service: 02/27/2020 He is feeling much better today. He complains of only mild HOPPER when he ambulates to the bathroom, but he notes this is greatly improved compared to several days ago. He was able to sleep laying almost completely flat last night. He has no SOB at rest. He tells me he is finally able to take a big, deep breath. He feels his LE edema has improved. He denies chest pain or palpitations. No dizziness or lightheadedness. No abdominal pain, N/V/D. He had a regular bowel movement today. He is urinating frequently secondary to Lasix, but denies dysuria or hematuria. His appetite is good.
[2020-02-27] MEDS: FUROSEMIDE 40 MG TABLET PO (17:11)
[2020-02-27] MEDS: POTASSIUM CHLORIDE 10 MEQ TABLET.ER PO (17:12)
[2020-02-28] VITALS (7 sets, daily range): BP systolic 130–133; BP diastolic 70–74; PULSE 49–60; RESP 18–20; TEMP 36.3–36.7; O2SAT 96–99
[2020-02-28 05:41] LABS: Hemoglobin A1C 6.7 % (<5.7)
[2020-02-28 05:47] LABS: Blood Urea Nitrogen 45 mg/dL (9-20); Calcium 8.2 mg/dL (8.4-10.2); Carbon Dioxide 28 mmol/L (22-30); Chloride 102 mmol/L (98-107); Estimated CRCL calculation 19 ml/min; Estimated Glomerular Filt Rate 18; Glucose 121 mg/dL (75-110); Magnesium 2.2 mg/dL (1.6-2.3); Potassium 3.3 mmol/L (3.4-5.0); Sodium 138 mmol/L (137-145)
[2020-02-28] MEDS: ATORVASTATIN 40 MG TABLET PO (08:43)
[2020-02-28] MEDS: amLODIPine BESYLATE 5 MG TABLET 10 MG PO (08:43)
[2020-02-28] MEDS: AMIODARONE HCL 200 MG TABLET PO (08:44)
[2020-02-28] MEDS: METOPROLOL SUCCINATE EXT REL 100 MG TABCR PO (08:44)
[2020-02-28] MEDS: FUROSEMIDE 40 MG TABLET PO (08:46)
[2020-02-28] MEDS: APIXABAN 5 MG TABLET PO (08:46)
[2020-02-28] MEDS: POTASSIUM CHLORIDE 20 MEQ TABLET PO (08:47)
[2020-02-28] MEDS: hydrALAZINE HCL 25 MG TABLET 75 MG PO ×2 (08:47→13:30)
--- NOTE | 2020-02-28 11:16 | PM.PNCARD ---
Progress Note: A&P Additional Plan 74-year-old man with decompensated volume overload/CHF as described above. Etiology of this is a combination of his mitral valve regurgitation, recent atrial fibrillation and worsening chronic kidney disease. He is nearly euvolemic at this time his chest sounds clear he has very minimal peripheral edema anymore and he in my opinion is very stable to go home. I would discharge him on the current dose of furosemide which is 40 mg b.i.d.. I will see that follow-up takes place with Dr. Grene in our office. Efren Brooks MD [facility] Subjective Date/time seen: Date of service: 02/28/20 11:16 Interval history: Follow-up visit with congestive heart failure in this 74-year-old man who has background of coronary artery disease, mitral valve regurgitation and paroxysmal atrial fibrillation. Maintaining sinus rhythm following recent cardioversion on amiodarone treatment. Feels well now breathing comfortably on room air. Exam Const: General: comfortable and no acute distress HENMT: Mouth: Yes moist mucous membranes Eyes: Sclera: sclerae normal Pupils: Equal, round and reactive pupils present Neck: Neck: supple and no JVD Thyroid: thyroid normal Resp: Auscultation: clear to auscultation bilaterally Cardio: Rate: regular rate Rhythm: regular rhythm Other: Grade 2 apical holosystolic murmur of MR GI: Auscultation: normal bowel sounds Skin: General skin exam: normal color Neuro: Cognition (Neuro): normal cognition Extrem: General: normal to inspection Objective Data Vital Signs Vital Signs: Vital Signs - 24 hr 02/27/20 12:00 02/27/20 14:00 02/27/20 16:00 Temperature 36.1 C L Pulse Rate 49 L 51 L 46 L Respiratory Rate 18 Blood Pressure 142/66 H Pulse Oximetry 96 02/27/20 18:00 02/27/20 20:00 02/27/20 21:07 Temperature 36.1 C L 36.8 C Pulse Rate 50 L 51 L 51 L Respiratory Rate 16 18 Blood Pressure 118/60 126/65 Pulse Oximetry 97 95 02/28/20 00:00 02/28/20 01:41 02/28/20 04:00 Temperature 36.7 C Pulse Rate 49 L 54 L 54 L Respiratory Rate 20 Blood Pressure 132/72 Pulse Oximetry 96 02/28/20 06:44 02/28/20 08:50 02/28/20 10:00 Temperature 36.7 C 36.3 C L Pulse Rate 60 52 L 50 L Respiratory Rate 18 18 Blood Pressure 133/74 130/70 130/73 Pulse Oximetry 97 99 Intake/Output Intake/Output: Intake & Output 02/25/20 02/26/20 02/27/20 02/28/20 23:59 23:59 23:59 23:59 Intake Total 840 2210 660 Output Total 1210 2550 9840 1750 Balance -1210 -1710 -1540 -1090 Meds/Results Medications: Active Medications Generic Name Dose Route Start Last Admin Trade Name Freq PRN Reason Stop Dose Admin Acetaminophen 650 mg 02/25/20 15:08 02/25/20 18:18 Tylenol Tablet PO 650 mg Q4H PRN Administration Mild Pain (1-3) or Fever Amiodarone HCl 200 mg 02/26/20 09:00 02/28/20 08:44 Pacerone PO 200 mg DAILY YING Administration Amlodipine Besylate 10 mg 02/26/20 09:00 02/28/20 08:43 Norvasc PO 10 mg DAILY YING Administration Apixaban 5 mg 02/25/20 21:00 02/28/20 08:46 Eliquis PO 5 mg Q12HR YING Administration Atorvastatin Calcium 40 mg 02/26/20 09:00 02/28/20 08:43 Lipitor PO 40 mg DAILY YING Administration Furosemide 40 mg 02/27/20 17:00 02/28/20 08:46 Lasix Tablet PO 40 mg BID YING Administration Hydralazine HCl 75 mg 02/25/20 20:30 02/28/20 08:47 Apresoline Tablet PO 75 mg TID YING Administration Metoprolol Succinate 100 mg 02/26/20 09:00 02/28/20 08:44 Toprol Xl PO 100 mg DAILY YING Administration Ondansetron HCl 4 mg 02/25/20 15:08 Zofran Inj IV PUSH Q4H PRN Nausea Potassium Chloride 10 meq 02/26/20 18:00 02/27/20 17:12 Kcl Tablet PO 10 meq QPM YING Administration Potassium Chloride 20 meq 02/26/20 09:00 02/28/20 08:47 Kcl Tablet PO 20 meq QAM YING Administration Radiology Results: ITS Impressions Ches
--- NOTE | 2020-02-28 12:58 | PM.DS ---
DS: Admitting Diagnosis Admitting Diagnosis Admitting Diagnosis: Acute on chronic diastolic (congestive) heart failure DS: Discharge Diagnosis Discharge Diagnosis (1) Acute exacerbation of congestive heart failure: Qualifiers: Heart failure type: diastolic Qualified Code(s): I50.33 - Acute on chronic diastolic (congestive) heart failure Code(s): I50.9 - Heart failure, unspecified Status: Acute Assessment and Plan: He experienced SOB, cough, and increased orthopnea over the past several weeks, as well as increased lower extremity edema for approximately 1-2 days prior to presentation. BNP was elevated at 7540. He was seen in consultation by Dr. Brooks. His acute volume overload and CHF exacerbation was felt to be multifactorial given his mitral valve regurgitation, atrial fibrillation, chronic kidney disease, and poor adherence to low-sodium diet. He was diuresed with high-dose IV Lasix. He had significant symptomatic improvement and his lungs sounded clear. He was weaned from 2 L O2 to room air. His lower extremity edema improved. He appeared relatively euvolemic, so he was switched to oral Lasix. At time of discharge, he stated he had no shortness of breath or HOPPER. His home Lasix was increased to 40 mg BID. We discussed the importance of continuing a low-sodium diet and educated him on monitoring daily weights. He will follow-up with Dr. Green as an outpatient. (2) Chronic kidney disease, stage 4 (severe): Code(s): N18.4 - Chronic kidney disease, stage 4 (severe) Status: Acute Assessment and Plan: His creatinine is mildly worsened when compared to labs drawn 6 months ago. I am not certain as to whether this may be progression of his disease versus decreased output due to the heart failure. Creatinine remains stable even with aggressive diuresis. He is established with Dr. Sevilla and has been instructed to follow-up as an outpatient. (3) Paroxysmal atrial fibrillation: Code(s): I48.0 - Paroxysmal atrial fibrillation Status: Acute Assessment and Plan: Status post cardioversion 02/24/[address] Lu at [facility]. His rate remained well controlled. He will continue amiodarone and apixaban. Follow-up with armature coil winder as above. (4) Hypertension: Qualifiers: Hypertension type: essential hypertension Qualified Code(s): I10 - Essential (primary) hypertension Code(s): I10 - Essential (primary) hypertension Status: Acute Assessment and Plan: Blood pressure was elevated at presentation, probably due to volume overload, but improved with diuresis. He will continue amlodipine, hydralazine, and Lasix. (5) Hypokalemia: Code(s): E87.6 - Hypokalemia Status: Acute Assessment and Plan: Potassium was mildly low, likely secondary to high-dose Lasix, and was replaced. He is on a total of 30 mEq of potassium at home which he will continue. (6) Type 2 diabetes mellitus: Code(s): E11.9 - Type 2 diabetes mellitus without complications Status: Acute Assessment and Plan: He is not on insulin or oral hypoglycemics. He has been diet controlled. He had elevated blood glucose noted on BMP, and updated A1c was obtained which was 6.7%. I reinforced proper diet and exercise. He should follow-up with PCP. (7) Subclinical hypothyroidism: Code(s): E03.9 - Hypothyroidism, unspecified Status: Acute Assessment and Plan: TSH was 9.23. T4 was wnl and T3 was mildly low. He was asymptomatic. TSH may be affected by amiodarone. I recommend a repeat TSH in 6 weeks. DS: Summary Hospital Course Reason for hospitalization: Shortness of breath Hospital Course: Date of admission: 02/25/2020 Date of discharge: 02/28/2020 Elias Aguirre is a 74 year old male with with paroxysmal atrial fibrillation, coronary artery disease status post drug-eluting stent to the LAD in [place]
== END 2020-02-28 14:10 | disposition home or self-care (01) | DRG 291 ==
LOC: ANHED 15:14 → ANHIMU 15:29 → ANH2MED 02-28 12:47 → ANHIMU 03-02 09:07
PROVIDERS: Physician Assistant; Admitting Provider Internal Medicine; Emergency Provider Emergency Medicine; PCP Family Medicine; Visit Provider Internal Medicine
DX: I13.0 Hypertensive heart and chronic kidney disease with heart failure and stage 1 through stage 4 chronic kidney disease, or unspecified chronic kidney disease (principal); I50.33 Acute on chronic diastolic (congestive) heart failure; N18.4 Chronic kidney disease, stage 4 (severe); E11.22 Type 2 diabetes mellitus with diabetic chronic kidney disease; I48.0 Paroxysmal atrial fibrillation; E87.6 Hypokalemia; E03.9 Hypothyroidism, unspecified; D63.1 Anemia in chronic kidney disease; I34.0 Nonrheumatic mitral (valve) insufficiency; E78.5 Hyperlipidemia, unspecified; I25.10 Atherosclerotic heart disease of native coronary artery without angina pectoris; Z87.891 Personal history of nicotine dependence; I25.2 Old myocardial infarction; Z85.528 Personal history of other malignant neoplasm of kidney; Z95.5 Presence of coronary angioplasty implant and graft; Z79.01 Long term (current) use of anticoagulants; Z87.11 Personal history of peptic ulcer disease
CPT/HCPCS: 36415; 71046; 80048; 80053; 83036; 83735; 83880; 84439; 84443; 84480; 84484; 85025; 85610; 85730; 93005; 96374; 96376; 99285; A9270; G0378; J1940

== ENCOUNTER 2020-04-01 08:45 | Inpatient (IN) | payer MEDICARE, SELFPAY ==
[2020-04-01] VITALS (19 sets, daily range): BP systolic 60–143; BP diastolic 48–80; PULSE 45–58; RESP 12–18; TEMP 36.3–36.8; O2SAT 95–100; BMI 34.7
--- NOTE | ~2020-04-01 | US_ITS ---
US renal BI DATE: 04/01/2020 15:55 INDICATION: Acute on chronic renal failure TECHNIQUE: Real-time imaging of kidneys and urinary bladder area COMPARISON: 05/20/2018 ultrasound of the kidneys FINDINGS: The right kidney measures 10.10 cm length, left kidney 9.8 cm length. Again noted is a heterogeneous shadowing approximately 3.2 cm mass at the lower pole left kidney, unc hanged in appearance since 05/20/2018. There is increased parenchymal echotexture of both kidneys consistent with chronic medical disease. No interval change of either kidney is evident. No hydronephrosis of either kidney is evident. IMPRESSION: No significant change since 05/20/2018 Reviewed, dictated and finalized at [facility]. Reviewed, dictated and finalized at [facility].
--- NOTE | ~2020-04-01 | US_ITS ---
EXAMINATION: US venous doppler LE RT EXAM DATE: 04/04/2020 13:17 INDICATION: Right leg edema. TECHNIQUE: Multiple grayscale, color flow and Doppler images of the right lower extremity deep venous system were obtained and reviewed. There is no prior study for comparison. FINDINGS: The right common femoral, femoral and profunda veins demonstrate normal color flow, respira tory variation, augmentation and compressibility. Compressibility, color flow confirmed within the r ight popliteal, posterior tibial, peroneal, and greater saphenous veins. There is a Soto's cyst dragan suring 4.6 x 1.1 x 1.4 cm. IMPRESSION: 1. No right lower extremity deep venous thrombosis. 2. Small Soto's cyst. Reviewed, dictated and finalized at [facility].
--- NOTE | 2020-04-01 09:01 | ECG_ITS ---
Measurements Intervals [place] Rate: 49 P: 23 VT: 200 QRS: -36 QRSD: 138 T: 34 QT: 368 QTc: 333 Interpretive Statements SINUS BRADYCARDIA LEFT AXIS DEVIATION RSR' IN V1 OR V2, CONSIDER RIGHT VENTRICULAR HYPERTROPHY OR RIGHT VCD POOR R WAVE PROGRESSION, ANTERIOR LEADS BORDERLINE T WAVE ABNORMALITY- INFERIOR LEADS BASELINE ARTIFACT- V3 ABNORMAL ECG Electronically Signed On 04-01-2020 10:14:32 CDT by Vikram Ochoa D.O.
--- NOTE | 2020-04-01 09:27 | ED.GIBLEED ---
HPI - GI Bleed General Chief complaint: Nausea/Vomiting/Diarrhea Stated complaint: diarrhea Time Seen by Provider: 04/01/20 09:04 Source: patient Mode of arrival: ambulatory Limitations: no limitations History of Present Illness HPI Narrative: This patient is a 74 year old male who presents for evaluation of bloody stools. He states 2 days ago he noticed a small amount of blood in his stool but he did not think much of it. Last night he reports he started having multiple episodes of loose stool with bright red blood. He states he was not able to sleep because he was constantly going to the restroom. His last episode was right before they called EMS. He currently takes Eliquis for atrial fibrillation. He denies history of bloody stools. He denies history of colonoscopy. He is becoming weak and he reports lightheadedness. He denies chest pain, sob, nausea, vomiting or abdominal pain. Related Data Home Medications Medication Instructions Recorded Confirmed atorvastatin 40 mg PO DAILY 07/14/19 04/01/20 potassium chloride 10 meq PO QPM 10/21/19 04/01/20 potassium chloride See Rx Instructions .ROUTE .COMPLEX 10/21/19 04/01/20 amiodarone 200 mg DAILY 02/25/20 04/01/20 amlodipine 10 mg PO DAILY 02/25/20 04/01/20 hydralazine 75 mg PO TID 02/25/20 04/01/20 metoprolol succinate 100 mg PO DAILY 02/25/20 04/01/20 Allergies Allergy/AdvReac Type Severity Reaction Status Date / Time No Known Allergies Allergy Unknown Verified 04/01/20 09:02 Review of Systems Review of Systems: All systems reviewed & are unremarkable except as noted in HPI and below Constitutional: Constitutional: Denies chills, Reports fatigue, Denies fever(s) and Reports weakness ENT: Reports dizziness and Denies nasal congestion Cardiovascular: Cardiovascular: Denies chest pain and Denies slow heart rate Respiratory: Respiratory: Denies cough and Denies dyspnea Gastrointestinal: Gastrointestinal: Denies abdominal pain, Reports diarrhea and Denies nausea PMFSH Past Medical History Medical History (Updated 04/01/20 @ 18:28 by Nickie Cabral MD) Anemia of chronic disease Arthritis Chronic kidney disease, stage 4 (severe) Coronary artery disease History of non STEMI in May 2018 status post drug-eluting stent to the LAD. 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 anticoagulation Diverticulitis Heart failure with preserved ejection fraction Echocardiogram in June 2019 showed a severely enlarged left atrial chamber, normal left ventricular size with moderate concentric left ventricular hypertrophy, left ventricular function is at the lower end of normal with an estimated ejection fraction 50-55% (although calculated at 63%), no wall motion abnormalities, moderate aortic valve calcification with no significant stenosis, moderate to moderately severe eccentric mitral valve regurgitation, mild tricuspid valve regurgitation, estimated pulmonary arterial systolic pressure of 32 mmHg, dilated inferior vena cava with <50% collapse upon inspiration consistent with elevated right atrial pressure, 10 mmHg. History of cardioversion x2 Hypercholesteremia Hypertension Kidney stones (~2008) Mitral regurgitation Paroxysmal atrial fibrillation Status post cardioversion in October 2019 and February 2020. 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 Type 2 diabetes mellitus Now diet controlled. Hemoglobin A1c was 5.2% in August 2018. Surgical History Surgical History History of appendectomy History of cardiac catheterization (~05/2018) Totally occlude LAD status post drug-eluting stent. Additional findings include high-grade stenosis of non dominant left circumflex, diffuse disease of the ramus intermedius, right posterior lateral branch with 30% distal stenosis, and diffuse but nonocclusive disease of a large dominant right coronary artery. History of tonsillectomy S
[2020-04-01 10:54] LABS: Basophils Absolute Auto 0.1 K/mm3 (0.0-0.1); Basophils Percent Auto 0.6 % (0.2-1.2); Eosinophils Absolute Auto 0.1 K/mm3 (0-0.3); Eosinophils Percent Auto 0.8 % (0-4.4); Immature Granulocyte Absolute 0.07 K/mm3 (0.00-0.031); Immature Granulocyte Percent A 0.6 % (0-0.5); Lymphocytes Absolute Auto 0.54 K/mm3 (0.9-3.2); Lymphocytes Percent Auto 4.7 % (18.3-44.2); Mean Corpuscular Hemoglobin 32.1 pg (26-34); Mean Corpuscular Volume 97.4 fl (80-100); Monocytes Absolute Auto 0.6 K/mm3 (0.1-0.6); Monocytes Percent Auto 4.8 % (2.6-8.5); Neutrophils Absolute Auto 10.2 K/mm3 (1.3-6.7); Neutrophils Percent Auto 88.5 % (45.5-73.1); Platelet Count Result 180 k/mm3 (150-375); Red Cell Distribution Width 13.9 % (11.5-14.5); White Blood Count 11.5 K/mm3 (4.5-10.0)
[2020-04-01 11:05] LABS: INR 1.7; Prothrombin Time 19.7 Seconds (11.1-14.7)
[2020-04-01 11:06] LABS: Partial Thromboplastin Time 31.9 SECONDS (22.3-36.8)
[2020-04-01 11:09] LABS: Alanine Aminotransferase 24 U/L (4-50); Albumin Level 3.3 g/dL (3.5-5.1); Alkaline Phosphatase 47 U/L (38-126); Anion Gap 10 mmol/L (8-16); Aspartate Amino Transferase 21 U/L (17-59); Bilirubin,Total 0.3 mg/dL (0.2-1.3); Blood Urea Nitrogen 73 mg/dL (9-20); Calcium 7.3 mg/dL (8.4-10.2); Carbon Dioxide 18 mmol/L (22-30); Chloride 108 mmol/L (98-107); Estimated CRCL calculation 15 ml/min; Estimated Glomerular Filt Rate 14; Glucose 175 mg/dL (75-110); Potassium 3.6 mmol/L (3.4-5.0); Sodium 136 mmol/L (137-145)
[2020-04-01 11:10] LABS: Hematocrit 18.5 % (42.0-52.0); Hemoglobin 6.1 g/dL (14.0-18.0)
[2020-04-01 11:11] LABS: Anisocytosis 1+ (NORMAL); Hypochromasia 1+ (NORMAL); Platelet Estimate Adequate (Adequate)
[2020-04-01] MEDS: PANTOPRAZOLE SODIUM IV 40 MG VIAL 80 MG IV PUSH (12:22)
[2020-04-01] MEDS: SODIUM CHLORIDE 0.9% IV 1,000 ML 999 ML IV CONT (12:42)
--- NOTE | 2020-04-01 13:27 | WPDCNINT ---
Assessment and Plan Assessment and plan (1) Gastrointestinal bleed: Code(s): K92.2 - Gastrointestinal hemorrhage, unspecified Status: Acute Assessment and Plan: acute GI bleed - upper versus lower secondary to Eliquis. his last dose was yesterday morning GI consulted hold Eliquis Protonix infusion transfuse the 2 units of packed red cells this time serial hemoglobin monitoring and transfuse as needed (2) Anemia due to GI blood loss: Code(s): D50.0 - Iron deficiency anemia secondary to blood loss (chronic) Status: Acute Assessment and Plan: hemoglobin was 6.1 in ED. As above mentioned 2 units of packed red cell will be transfused and other 2 will be on hold. Serial hemoglobin checks (3) Hypotension: Code(s): I95.9 - Hypotension, unspecified Status: Acute Assessment and Plan: patient was hypertensive in ED and now blood pressure has slightly improved with IV fluid bolus continue cautious IV fluids as patient has history of CKD and CHF transfuse 2 units of packed red cells (4) Type 2 diabetes mellitus: Code(s): E11.9 - Type 2 diabetes mellitus without complications Status: Acute Assessment and Plan: sliding scale insulin and NPO (5) Chronic kidney disease, stage 4 (severe): Code(s): N18.4 - Chronic kidney disease, stage 4 (severe) Status: Acute Assessment and Plan: creatinine is worse than baseline acute worsening could be from hypertension secondary to GI bleed versus normal progression of kidney disease monitor electrolytes, urine output, creatinine consult nephrology (6) Paroxysmal atrial fibrillation: Code(s): I48.0 - Paroxysmal atrial fibrillation Status: Acute Assessment and Plan: status post cardioversion currently in sinus [place] monitor (7) CAD (coronary artery disease): Code(s): I25.10 - Atherosclerotic heart disease of [place] coronary artery without angina pectoris Status: Acute Assessment and Plan: continue Lipitor hold beta-manny due to low blood pressure (8) CHF (congestive heart failure): Code(s): I50.9 - Heart failure, unspecified Status: Acute Assessment and Plan: ECHO 06/2019 Summary 1. Left atrial chamber dimension is severely enlarged. 2. The left ventricle is of normal size with moderate concentric left ventricular hypertrophy. Left ventricular function is at the lower end of normal with an estimated ejection fraction 50-55%, although is calculated 63%. There are no segmental wall motion abnormalities. 3. There is moderate aortic valve calcification with no significant stenosis. 4. There is moderate to moderately severe eccentric mitral valve regurgitation. 5. There is mild tricuspid valve regurgitation. 6. No pulmonary hypertension, estimated pulmonary arterial systolic pressureis 32 mmHg. 7. Dilated inferior vena cava with <50% collapse upon inspiration consistent with elevated right atrial pressure, 10 mmHg. 8. Atrial fibrillation. (9) Mitral regurgitation: Code(s): I34.0 - Nonrheumatic mitral (valve) insufficiency Status: Acute Assessment and Plan: Chronic Additional Plan DVT prophylaxis - SCDs Stress ulcer prophylaxis - PPI drip Nutrition - NPO Code Status - Full Code Shoe Sewing Machine Operator And Tender Consult Note Consult date: 04/01/20 Time Seen: 13:00 HPI: Elias Aguirre is a 74 year old male with past medical history of paroxysmal atrial fibrillation status post electric cardioversion, coronary artery disease status post drug-eluting stent to the LAD in May 2018, hypertension, hyperlipidemia, mitral valve regurgitation, congestive heart failure, chronic kidney disease, chronic anemia, and type 2 diabetes mellitus who presented to the emergency department today with chief complaint of diarrhea associated with blood. Patient is on Eliquis for his atrial fibrillation and started having loose bowel
--- NOTE | 2020-04-01 14:36 | PM.IMHP ---
H&P: HPI History of Present Illness Date/Time: 04/01/20 14:36 Chief complaint: Lower gI hemorrhage Narrative: Elias Aguirre is a 74 year old male Came to the emergency room today to be evaluated for bloody stool. The patient is very pale. She states that about 2 days ago he noticed a small amount of blood in his stool in think much of it. The patient has never had a colonoscopy possibly said he has had a barium enema on the past. He found out that he had a history of diverticulitis in the past. The patient is currently on on Eliquis for atrial fibrillation. He has had 2 ablations and has been switched amiodarone is now in a sinus rhythm. Actually sinus bradycardia. He is becoming weak and lightheaded. No chest pain or shortness of breath no nausea vomiting no abdominal pain. his H&H is 6.1 and 18.5. He has been typed and screen for 4 units of packed red blood cells. I believe he will be infused with 2 units. The elevator serviceman was consulted due to the patient's low blood pressure. Patient is being admitted to the intensive care unit. The elevator serviceman has already seen the patient. GI has been consulted. And nephrology has been consulted patient has worsening chronic renal failure. Creatinine went from 3.4-4.3. His GFR is 14. Last hemoglobin A1c was 6.7 one month ago. Patient's blood pressure is now to 120/66. His map is 84. He has no fever no chills. I spent approximately 1 hour of critical care time with the patient. Date of service 04/01/2020. Review of Systems Review of Systems: All systems reviewed & are unremarkable except as noted in HPI and below Constitutional: Constitutional: Reports as per HPI and Reports no additional constitutional complaints Eyes: Eyes: Reports as per HPI and Reports no additional eye complaints ENT: Reports system reviewed and no additional complaints, except as documented and Reports Normal hearing present Cardiovascular: Cardiovascular: Reports no additional cardiovascular complaints Respiratory: Respiratory: Reports no additional respiratory complaints and Reports no additional respiratory complaints Gastrointestinal: Gastrointestinal: Reports as per HPI and Reports no additional gastrointestinal complaints Musculoskeletal: Musculoskeletal: Reports no additional musculoskeletal complaints Integumentary/Breasts: Skin/Breast: Reports system reviewed and no additional complaints, except as docu and Reports as per HPI Neurologic: Reports system reviewed and no additional complaints, except as documented, Reports as per HPI and Reports Normal hearing present Psychiatric: Psychiatric: Reports no additional psychiatric complaints and Reports as per HPI Endocrine: Endocrine: Reports no additional endocrine complaints Hematologic/Lymphatic: Hematologic/Lymphatic: Reports no additional hematologic/lymphatic complaints Allergic/Immunologic: Allergic/Immunologic: Reports no additional allergic/immunologic complaints [facility] Past Medical History Medical History (Updated 04/01/20 @ 14:56 by Zhane Johnson NP) Anemia of chronic disease Arthritis Chronic kidney disease, stage 4 (severe) Coronary artery disease History of non STEMI in May 2018 status post drug-eluting stent to the LAD. 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 mcfp anticoagulation Diverticulitis Heart failure with preserved ejection fraction Echocardiogram in June 2019 showed a severely enlarged left atrial chamber, normal left ventricular size with moderate concentric left ventricular hypertrophy, left ventricular function is at the lower end of normal with an estimated ejection fraction 50-55% (although calculated at 63%), no wall motion abnormalities, moderate aortic valve calcification with no significant stenosis, moderate to moderately severe eccentric mitral valve regurgitation, mild tricuspid valve regurgitation, estimated pulmonary arterial systolic pressure of 32 mmHg, dilated inferior vena cava with <50% collapse upon inspiration consiste
--- NOTE | 2020-04-01 15:09 | PC.NURSE ---
This patient, Elias Aguirre, was admitted to Intensive Care Unit-8. Patient/family oriented to hospital policies and general routines including ID bracelet, bed and alarms, visiting hours, pain management, procedures, bathroom and other care routines, personal items, smoking policy, room service/diet, and visiting hours. Valuables list has been completed. Information on how to activate the Rapid Response Team has been discussed. Patient/Family are encouraged to report perceived risks to care and to ask questions if they do not understand what they are told or what they should do.
[2020-04-01 19:23] LABS: Glucose Point of Care 141 (65-105)
[2020-04-02] VITALS (14 sets, daily range): BP systolic 134–168; BP diastolic 54–87; PULSE 48–62; RESP 15–22; TEMP 36.3–36.8; O2SAT 93–100
[2020-04-02 00:36] LABS: Hematocrit 20.4 % (42.0-52.0)
[2020-04-02 00:37] LABS: Glucose Point of Care 120 (65-105)
[2020-04-02 04:06] LABS: Basophils Absolute Auto 0.1 K/mm3 (0.0-0.1); Basophils Percent Auto 0.5 % (0.2-1.2); Eosinophils Absolute Auto 0.1 K/mm3 (0-0.3); Eosinophils Percent Auto 0.7 % (0-4.4); Immature Granulocyte Absolute 0.07 K/mm3 (0.00-0.031); Immature Granulocyte Percent A 0.7 % (0-0.5); Lymphocytes Absolute Auto 0.75 K/mm3 (0.9-3.2); Lymphocytes Percent Auto 7.6 % (18.3-44.2); Mean Corpuscular HGB Conc 33.8 g/dl (32-36); Mean Corpuscular Hemoglobin 31.4 pg (26-34); Mean Corpuscular Volume 92.8 fl (80-100); Mean Platelet Volume 9.6 fl (7.4-10.4); Monocytes Absolute Auto 0.8 K/mm3 (0.1-0.6); Monocytes Percent Auto 7.8 % (2.6-8.5); Neutrophils Absolute Auto 8.1 K/mm3 (1.3-6.7); Neutrophils Percent Auto 82.7 % (45.5-73.1); Platelet Count Result 137 k/mm3 (150-375); Red Blood Count 2.23 M/mm3 (4.6-6.20); Red Cell Distribution Width 14.9 % (11.5-14.5); White Blood Count 9.9 K/mm3 (4.5-10.0)
[2020-04-02 04:20] LABS: Alanine Aminotransferase 22 U/L (4-50); Albumin Level 2.9 g/dL (3.5-5.1); Alkaline Phosphatase 39 U/L (38-126); Anion Gap 7 mmol/L (8-16); Aspartate Amino Transferase 19 U/L (17-59); Bilirubin,Total 0.7 mg/dL (0.2-1.3); Blood Urea Nitrogen 66 mg/dL (9-20); Calcium 7.6 mg/dL (8.4-10.2); Carbon Dioxide 18 mmol/L (22-30); Chloride 111 mmol/L (98-107); Estimated CRCL calculation 17 ml/min; Estimated Glomerular Filt Rate 15; Glucose 128 mg/dL (75-110); Magnesium 2.2 mg/dL (1.6-2.3); Potassium 3.2 mmol/L (3.4-5.0); Sodium 136 mmol/L (137-145)
[2020-04-02 04:43] LABS: Hematocrit 20.7 % (42.0-52.0)
[2020-04-02] MEDS: SODIUM CHLORIDE 0.9% IV 1,000 ML 75 ML IV CONT ×2 (07:32→08:00)
[2020-04-02 07:35] LABS: Hematocrit 21.1 % (42.0-52.0); Hemoglobin 7.2 g/dL (14.0-18.0)
--- NOTE | 2020-04-02 08:10 | WPDINTPN ---
Progress Note: A&P Assessment and Plan (1) Gastrointestinal bleed: Code(s): K92.2 - Gastrointestinal hemorrhage, unspecified Status: Acute Assessment and Plan: acute GI bleed - upper versus lower likely secondary to Eliquis. his last dose was 03/31 morning GI consulted and patient is currently on Protonix infusion. Continue to hold Eliquis. Patient was transfused 2 units of packed red cells yesterday and hemoglobin has been stable continue serial hemoglobin monitoring and transfuse as needed (2) Anemia due to GI blood loss: Code(s): D50.0 - Iron deficiency anemia secondary to blood loss (chronic) Status: Acute Assessment and Plan: see above (3) Hypotension: Code(s): I95.9 - Hypotension, unspecified Status: Acute Assessment and Plan: patient was hypotensive in ED but blood pressure improved with IV fluid bolus and later transfusion. His blood pressure medications were held and now his blood pressure is creeping up into hypertensive range since he is bradycardic I will order p.r.n. IV hydralazine at this time continue cautious IV fluids as patient has history of CKD and CHF (4) Type 2 diabetes mellitus: Code(s): E11.9 - Type 2 diabetes mellitus without complications Status: Acute Assessment and Plan: sliding scale insulin NPO until seen by GI (5) Chronic kidney disease, stage 4 (severe): Code(s): N18.4 - Chronic kidney disease, stage 4 (severe) Status: Acute Assessment and Plan: creatinine level was worse than baseline on presentation. This acute worsening could be from hypotension secondary to GI bleed versus normal progression of kidney disease. Labs shows hyperchloremic metabolic acidosis today. - Change IV fluids to bicarb and will continue for another 24 hours and reassess - add p.o. bicarb for next few days - replace low potassium - Patient was seen by nephrology today and further management per Nephrology - continue to monitor electrolytes, urine output, creatinine (6) Paroxysmal atrial fibrillation: Code(s): I48.0 - Paroxysmal atrial fibrillation Status: Acute Assessment and Plan: status post cardioversion currently in sinus [place] monitor beta-manny and amiodarone was held as heart rate was in 50s (7) CAD (coronary artery disease): Code(s): I25.10 - Atherosclerotic heart disease of elim ira coronary artery without angina pectoris Status: Acute Assessment and Plan: continue Lipitor hold beta-manny due sinus bradycardia in 50s (8) CHF (congestive heart failure): Code(s): I50.9 - Heart failure, unspecified Status: Acute Assessment and Plan: ECHO 06/2019 Summary 1. Left atrial chamber dimension is severely enlarged. 2. The left ventricle is of normal size with moderate concentric left ventricular hypertrophy. Left ventricular function is at the lower end of normal with an estimated ejection fraction 50-55%, although is calculated 63%. There are no segmental wall motion abnormalities. 3. There is moderate aortic valve calcification with no significant stenosis. 4. There is moderate to moderately severe eccentric mitral valve regurgitation. 5. There is mild tricuspid valve regurgitation. 6. No pulmonary hypertension, estimated pulmonary arterial systolic pressureis 32 mmHg. 7. Dilated inferior vena cava with <50% collapse upon inspiration consistent with elevated right atrial pressure, 10 mmHg. 8. Atrial fibrillation. (9) Mitral regurgitation: Code(s): I34.0 - Nonrheumatic mitral (valve) insufficiency Status: Acute Assessment and Plan: Chronic Additional Plan DVT prophylaxis - SCDs Stress ulcer prophylaxis - PPI drip Nutrition - NPO Code Status - Full Code since hemoglobin has been stable and patient is asymptomatic now and had no bowel movements with blood overnight. Will be transferred to
[2020-04-02] MEDS: POTASSIUM CHLORIDE 20 MEQ TABLET 40 MEQ PO (08:38)
[2020-04-02] MEDS: SODIUM BICARBONATE 8.4% 150 MEQ in WATER, STERILE FOR INJECTION 950 ML 50 MEQ IV CONT (08:46)
[2020-04-02] MEDS: ATORVASTATIN 40 MG TABLET PO (08:58)
[2020-04-02] MEDS: SODIUM BICARBONATE TAB 650 MG TABLET 1300 MG PO ×3 (08:59→17:08)
--- NOTE | 2020-04-02 09:01 | PM.CNNEP ---
Assessment and Plan Assessment and plan (1) Acute on chronic kidney failure: Code(s): N17.9 - Acute kidney failure, unspecified; N18.9 - Chronic kidney disease, unspecified Status: Acute Assessment and Plan: The patient has chronic kidney disease. This is most likely due to diabetes, hypertension, and vascular disease. Usually diastolic dysfunction does not lead to significant pre renal azotemia by itself. He does have some mitral regurgitation requiring diuretics however and so could have a component of pre renal azotemia from the diuretics. His creatinine was 2.36 in November when he was on 40 mg of Lasix. The he developed swelling and so he was placed on 80. He has not had any blood drawn after he was in equilibrium on the 80 mg a day. So it is unclear what his baseline on that dose of Lasix is. Currently his creatinine is way up. I assume this is due to dehydration from his GI bleed. However some of this rise above 2.36 could have been that 80 mg of Lasix. Right now he is off the Lasix and we will see how much better his creatinine gets before he starts getting swollen again. Will get an ultrasound of the kidneys and urine electrolytes just to make sure there is nothing else going on. (2) Acute lower gastrointestinal bleeding: Code(s): K92.2 - Gastrointestinal hemorrhage, unspecified Status: Acute Assessment and Plan: The patient has a lower GI bleed. He has received blood transfusions. He is on pantoprazole drip GI is on the case (3) Paroxysmal atrial fibrillation: Code(s): I48.0 - Paroxysmal atrial fibrillation Status: Acute Assessment and Plan: patient has paroxysmal atrial fibrillation. Currently he is in sinus rhythm. He was on Eliquis. (4) (HFpEF) heart failure with preserved ejection fraction: Qualifiers: Heart failure chronicity: acute Qualified Code(s): I50.31 - Acute diastolic (congestive) heart failure Code(s): I50.30 - Unspecified diastolic (congestive) heart failure Status: Acute Assessment and Plan: the patient has diastolic dysfunction, mitral regurgitation, and paroxysmal atrial fibrillation. His systolic function is fine (5) DM II (diabetes mellitus, type II), controlled: Qualifiers: Diabetes mellitus [employer] insulin use: without [employer] use Diabetes mellitus complication status: without complication Qualified Code(s): E11.9 - Type 2 diabetes mellitus without complications Code(s): E11.9 - Type 2 diabetes mellitus without complications Status: Acute Assessment and Plan: he is on Accu-Cheks and sliding-scale insulin (6) Hypertension: Qualifiers: Hypertension type: essential hypertension Qualified Code(s): I10 - Essential (primary) hypertension Code(s): I10 - Essential (primary) hypertension Status: Acute Assessment and Plan: his blood pressure is under good control (7) Hypokalemia: Code(s): E87.6 - Hypokalemia Status: Acute Assessment and Plan: he received supplementation already. History of Present Illness Reason for Consult Consult date: 04/02/20 Chief Complaint Chief complaint: Lower gI hemorrhage History of Present Illness Narrative: Elias is a very pleasant 74-year-old gentleman who was multiple medical problems including chronic kidney disease stage 4, diabetes type 2, hypertension, atrial fibrillation, LVH, diastolic dysfunction, moderate to severe mitral valve regurgitation, coronary disease status post STEMI in May of 2018 with a drug-eluting stent,kidney stones in the distant past, peptic ulcer disease in the past, renal cell carcinoma status post cryoablation, arthritis, anemia. The patient came in hospital because he had some bleeding per rectum. Two days before admission the patient noticed that he had some blood on his toilet paper. However on the day of admission he felt a
[2020-04-02] MEDS: KCL 20 MEQ/SW 100 ML 100 ML 50 MEQ IVPB (10:04)
--- NOTE | 2020-04-02 10:06 | WPDGICN ---
Assessment and Plan Assessment and plan (1) Anemia due to GI blood loss: Code(s): D50.0 - Iron deficiency anemia secondary to blood loss (chronic) Status: Acute Assessment and Plan: probably diverticular source but also need to assess if he could have peptic ulcer disease, AVM's or even malignancy since never had a colonoscopy eliquis now is on hold, hypotension resolved after fluids and now he is hemodynamically stable without more report of bleed last few hours will proceed with egd and colonoscopy tomorrow continue to monitor and check h/h (2) Hypotension: Code(s): I95.9 - Hypotension, unspecified Status: Acute Assessment and Plan: resolved after fluids (3) Gastrointestinal bleed: Code(s): K92.2 - Gastrointestinal hemorrhage, unspecified Status: Acute Assessment and Plan: egd and colonoscopy already got blood transfusion monitor h/h (4) Acute on chronic kidney failure: Code(s): N17.9 - Acute kidney failure, unspecified; N18.9 - Chronic kidney disease, unspecified Status: Acute Assessment and Plan: nephrology on board (5) Paroxysmal atrial fibrillation: Code(s): I48.0 - Paroxysmal atrial fibrillation Status: Acute (6) 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 care home anticoagulation: Code(s): Z79.01 - custodial (current) use of anticoagulants Status: Acute Assessment and Plan: eliquids on hold GI Consult Note Consult date/time: 04/02/20 10:06 Reason for consult: GIB HPI: Elias Aguirre is a 74 year old male with past medical history of paroxysmal atrial fibrillation status post electric cardioversion who has been on eliquis for over a year, coronary artery disease status post drug-eluting stent to the LAD in May 2018, hypertension, hyperlipidemia, mitral valve regurgitation, congestive heart failure, chronic kidney disease stage IV, and type 2 diabetes mellitus who came to the emergency department with new onset of diarrhea associated with blood. He noted loose bowel movements mixed with cranberry colored blood component several times, then he feel fatigue and tired. His Hb recently was 11, on arrival 6.1 therefore given blood transfusion and admitted to ICU. He has not had any more bowel movements today and he is feeling better. He says that had EGD but years ago, never had a colonoscopy (he says that had diverticulitis years ago but did not follow recommendations of his pcp because heard about complications of colonoscopy). He was hypotensive in ER but responded to iv fluids and transfusion, now SBP 140's. He also was started on ppi iv. Denies abdominal pain, nausea or hematemesis. Never had GIB. Review of Systems Constitutional: Constitutional: Reports fatigue and Reports weakness Eyes: Eyes: Denies blurry vision ENT: Reports Normal hearing present Cardiovascular: Cardiovascular: Reports lightheadedness Respiratory: Respiratory: Denies hemoptysis Gastrointestinal: Gastrointestinal: Denies abdominal pain and Reports hematochezia Genitourinary: Genitourinary: Denies dysuria Musculoskeletal: Musculoskeletal: Denies myalgias Integumentary/Breasts: Skin/Breast: Denies rash Neurologic: Reports system reviewed and no additional complaints, except as documented Psychiatric: Psychiatric: Reports no additional psychiatric complaints Endocrine: Endocrine: Reports no additional endocrine complaints Allergic/Immunologic: Allergic/Immunologic: Denies itchy eyes PMFSH Past Medical History Medical History Anemia of chronic disease Arthritis Chronic kidney disease, stage 4 (severe) Coronary artery disease History of non STEMI in May 2018 status post drug-eluting stent to the LAD. 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 care home anticoagulation Diverticulitis Heart failure with preserved ejection fraction Echocardiogram in June 2019 showed a severely enlarged left atrial chamber, normal left vent
[2020-04-02] MEDS: AMIODARONE HCL 200 MG TABLET PO (12:20)
[2020-04-02 12:56] LABS: Glucose Point of Care 126 (65-105)
--- NOTE | 2020-04-02 14:10 | PC.NURSE ---
This patient, Elias Aguirre, was received from ICU on 04/02/20 at 1410. Report received from Kimberley LICONA. Personal belongings list checked and signed. Patient/family oriented to unit policies and routines
--- NOTE | 2020-04-02 14:25 | PC.NURSE ---
This patient, Elias Aguirre, was transferred to [[id number] ] on 04/02/20 at 1400. Personal belongings sent with patient. Belongings list checked. Report given to [Mariya LICONA ]. Appropriate documentation sent with patient.
--- NOTE | 2020-04-02 16:56 | PM.IMPN ---
Progress Note: A&P Assessment and Plan (1) Gastrointestinal bleed: Code(s): K92.2 - Gastrointestinal hemorrhage, unspecified Status: Acute Assessment and Plan: has received 2 units of packed cells and hemoglobin only 7.0 so with his anticoagulation and history of CAD will go ahead and give 3rd unit of packed cells Hold his Eliquis . Protonix EGD and colon a.m. 04/03. (2) Chronic kidney disease, stage 4 (severe): Code(s): N18.4 - Chronic kidney disease, stage 4 (severe) Status: Acute Assessment and Plan: acute on chronic stage 3-4 renal failure probable secondary to decreased renal perfusion with hypotension secondary to GI bleed. Creatinine 2.5 in May of 2018. Renal sonogram unchanged and no obstruction. transfused and continue gentle hydration with bicarbonate (3) (HFpEF) heart failure with preserved ejection fraction: Qualifiers: Heart failure chronicity: acute Qualified Code(s): I50.31 - Acute diastolic (congestive) heart failure Code(s): I50.30 - Unspecified diastolic (congestive) heart failure Status: Acute Assessment and Plan: If blood pressure remains as it is we can continue with his Lasix and metoprolol. But hold of his blood pressures less than 110/60. ECHO 06/2019 Summary 1. Left atrial chamber dimension is severely enlarged. 2. The left ventricle is of normal size with moderate concentric left ventricular hypertrophy. Left ventricular function is at the lower end of normal with an estimated ejection fraction 50-55%, although is calculated 63%. There are no segmental wall motion abnormalities. 3. There is moderate aortic valve calcification with no significant stenosis. 4. There is moderate to moderately severe eccentric mitral valve regurgitation. 5. There is mild tricuspid valve regurgitation. 6. No pulmonary hypertension, estimated pulmonary arterial systolic pressureis 32 mmHg. 7. Dilated inferior vena cava with <50% collapse upon inspiration consistent with elevated right atrial pressure, 10 mmHg. 8. Atrial fibrillation. (9) Mitral regurgitation: Code(s): I34.0 - Nonrheumatic mitral (valve) insufficiency Status: Acute Assessment and Plan: Chronic thus more chronic diastolic heart failure. holding Lasix with renal failure (4) Type 2 diabetes mellitus: Code(s): E11.9 - Type 2 diabetes mellitus without complications Status: Acute Assessment and Plan: Accu-Cheks every 6 hours. (5) Anemia due to GI blood loss: Code(s): D50.0 - Iron deficiency anemia secondary to blood loss (chronic) Status: Acute Assessment and Plan: transfuse to keep hemoglobin close to 8 with his coronary disease. Received 3rd unit today. Serial exams and further evaluation in a.m. with GI studies Subjective Date/time seen: 04/02/20 16:56 Interval history: 74-year-old white male with history of atrial fibrillation on Eliquis for anticoagulation and history of coronary disease status post stent of LAD 06/04 presented to the hospital with weakness and bright red blood per rectum. Feels better this a.m. after pressure zohra with transfusion of 2 units of packed cells. Hemoglobin this a.m. 7.0 no abdominal pain nausea or vomiting or hematemesis Exam Narrative: Exam Narrative: blood pressure now 140/62 pulse is 56 and regular afebrile pupils equal reactive to light sclera anicteric lungs clear CV [place] regular rate rhythm abdomen is soft nontender extremities without edema distal pulses are 2+ neuro alert pleasant cooperative no focal deficits Objective Data Vital Signs Vital Signs: Vital Signs - 24 hr 04/01/20 17:29 04/01/20 17:50 04/01/20 18:00 Temperature 36.4 C L 36.6 C Pulse Rate 52 L 53 L 58 L Respiratory Rate 15 12 16 Blood Pressure 143/64 H 138/70 Pulse Oximetry 97 98 100 04/01/20 18:09 04/01/20 19:09 04/01/20 20:00 Temperature 36.8 C 36.3 C L 36.3 C L
[2020-04-02] MEDS: PEG (High)/E-LYTE SOLN 4,000 ML BTL 4000 ML PO (17:04)
[2020-04-02] MEDS: BISACODYL 5 MG TABLET EC 20 MG PO (17:08)
[2020-04-02 17:58] LABS: Glucose Point of Care 180 (65-105)
[2020-04-02] MEDS: METOPROLOL SUCCINATE EXT REL 50 MG TABCR PO (20:26)
[2020-04-02] MEDS: PANTOPRAZOLE SODIUM IV 40 MG VIAL IV PUSH (20:26)
[2020-04-02 20:48] LABS: IFOB Positive Control Positive; Immunochemical Fecal Occult Bl Positive (N)
[2020-04-02 23:24] LABS: Glucose Point of Care 107 (65-105)
[2020-04-03] VITALS (9 sets, daily range): BP systolic 112–172; BP diastolic 57–87; PULSE 51–72; RESP 16–18; TEMP 36.3–36.8; O2SAT 95–98
[2020-04-03] MEDS: MAGNESIUM CITRATE 300 ML BTL PO (05:26)
[2020-04-03] MEDS: SODIUM BICARBONATE 8.4% 150 MEQ in WATER, STERILE FOR INJECTION 950 ML 50 MEQ IV CONT (05:27)
[2020-04-03 05:57] LABS: Glucose Point of Care 110 (65-105)
[2020-04-03 06:55] LABS: Basophils Absolute Auto 0.1 K/mm3 (0.0-0.1); Basophils Percent Auto 0.6 % (0.2-1.2); Eosinophils Absolute Auto 0.4 K/mm3 (0-0.3); Eosinophils Percent Auto 3.8 % (0-4.4); Hematocrit 25.5 % (42.0-52.0); Hemoglobin 8.7 g/dL (14.0-18.0); Immature Granulocyte Absolute 0.09 K/mm3 (0.00-0.031); Immature Granulocyte Percent A 0.9 % (0-0.5); Lymphocytes Absolute Auto 0.95 K/mm3 (0.9-3.2); Lymphocytes Percent Auto 9.8 % (18.3-44.2); Mean Corpuscular HGB Conc 34.1 g/dl (32-36); Mean Corpuscular Volume 90.7 fl (80-100); Mean Platelet Volume 9.7 fl (7.4-10.4); Monocytes Absolute Auto 0.9 K/mm3 (0.1-0.6); Monocytes Percent Auto 9.2 % (2.6-8.5); Neutrophils Absolute Auto 7.3 K/mm3 (1.3-6.7); Neutrophils Percent Auto 75.7 % (45.5-73.1); Platelet Count Result 157 k/mm3 (150-375); Red Blood Count 2.81 M/mm3 (4.6-6.20); Red Cell Distribution Width 15.2 % (11.5-14.5); White Blood Count 9.7 K/mm3 (4.5-10.0)
[2020-04-03 07:15] LABS: Albumin Level 3.5 g/dL (3.5-5.1); Anion Gap 10 mmol/L (8-16); Blood Urea Nitrogen 52 mg/dL (9-20); Calcium 8.2 mg/dL (8.4-10.2); Carbon Dioxide 24 mmol/L (22-30); Chloride 106 mmol/L (98-107); Estimated CRCL calculation 21 ml/min; Estimated Glomerular Filt Rate 20; Glucose 114 mg/dL (75-110); Phosphorus 3.6 mg/dL (2.5-4.5); Potassium 3.2 mmol/L (3.4-5.0); Sodium 140 mmol/L (137-145)
--- NOTE | 2020-04-03 08:09 | WPDANESEPPF ---
Anes - Initial Pre Proc Eval Procedure: Operation Date: 04/03/20 12:30 Proposed Procedures p Esophagogastroduodenoscopy & Colonoscopy - Greg Stephens MD Date/Time: 04/03/20 08:09 Surgeon: Nida Servin MD Pre Op Diagnosis: Lower gI hemorrhage Patient Data Age: 74 Gender: M Height: 1.68 m Weight: 97.7 kg Last Vital Signs Temp 36.5 C 04/03/20 06:00 Pulse 64 04/03/20 06:00 Resp 18 04/03/20 06:00 BP 130/64 04/03/20 06:00 Pulse Ox 96 04/03/20 06:00 Allergies Allergy/AdvReac Type Severity Reaction Status Date / Time No Known Allergies Allergy Unknown Verified 04/03/20 12:23 Home Medications Medication Instructions Recorded Confirmed Type atorvastatin 40 mg PO DAILY 07/14/19 04/01/20 History Eliquis 5 mg PO Q12HR #60 tablet 07/15/19 04/01/20 Rx acetaminophen [Mapap 650 mg PO Q4H PRN #60 tablet 07/15/19 04/01/20 Rx (acetaminophen)] potassium chloride 10 meq PO QPM 10/21/19 04/01/20 History potassium chloride See Rx Instructions .ROUTE .COMPLEX 10/21/19 04/01/20 History amiodarone 200 mg DAILY 02/25/20 04/01/20 History amlodipine 10 mg PO DAILY 02/25/20 04/01/20 History hydralazine 75 mg PO TID 02/25/20 04/01/20 History metoprolol succinate 100 mg PO DAILY 02/25/20 04/01/20 History furosemide 40 mg PO BID #60 tablet 02/28/20 04/01/20 Rx Laboratory Tests 04/01/20 04/02/20 04/02/20 10:15 12:54 17:11 WBC RBC Hgb Hct MCV MCH MCHC RDW Plt Count MPV Immature Gran % (Auto) Neut % (Auto) Lymph % (Auto) [place] % (Auto) Eos % (Auto) Baso % (Auto) Lymph # (Auto) [place] # (Auto) Eos # (Auto) Baso # (Auto) Abs Immat Gran (auto) Absolute Neuts (auto) Absolute Nucleated RBC Nucleated RBC % Sodium Potassium Chloride Carbon Dioxide Anion Gap BUN Creatinine Estim Creat Clear Calc Estimated GFR Glucose POC Capillary Glucose 126 mg/dl H mg/dl 180 mg/dl H mg/dl (65-105) (65-105) Calcium Phosphorus Albumin Stl Occult Blood (IFOB) Blood Type A Positive Antibody Screen Negative Crossmatch See Detail 04/02/20 04/02/20 04/03/20 20:33 23:22 05:26 WBC RBC Hgb Hct MCV MCH MCHC RDW Plt Count MPV Immature Gran % (Auto) Neut % (Auto) Lymph % (Auto) [place] % (Auto) Eos % (Auto) Baso % (Auto) Lymph # (Auto) [place] # (Auto) Eos # (Auto) Baso # (Auto) Abs Immat Gran (auto) Absolute Neuts (auto) Absolute Nucleated RBC Nucleated RBC % Sodium Potassium Chloride Carbon Dioxide Anion Gap BUN Creatinine Estim Creat Clear Calc Estimated GFR Glucose POC Capillary Glucose 107 mg/dl mg/dl 110 mg/dl mg/dl (65-105) (65-105) Calcium Phosphorus Albumin Stl Occult Blood (IFOB) Positive H (N) Blood Type Antibody Screen Crossmatch 04/03/20 04/03/20 06:30 06:30 WBC 9.7 K/mm3 K/mm3 (4.5-10.0) RBC 2.81 M/mm3 L M/mm3 (4.6-6.20) Hgb 8.7 g/dL L g/dL (14.0-18.0) Hct 25.5 % L % (42.0-52.0) MCV 90.7 fl fl (80-100) MCH 31.0 pg pg (26-34)
--- NOTE | 2020-04-03 08:49 | PM.PNNEP ---
Progress Note: A&P Assessment and Plan (1) Acute on chronic kidney failure: Code(s): N17.9 - Acute kidney failure, unspecified; N18.9 - Chronic kidney disease, unspecified Status: Acute Assessment and Plan: The patient has chronic kidney disease. This is most likely due to diabetes, hypertension, and vascular disease. he has acute kidney injury in addition, No urine tests have been collected. Renal ultrasound is unchanged from 2018 possibly due to GI bleed and possibly with a contribution from the Lasix. (2) Acute lower gastrointestinal bleeding: Code(s): K92.2 - Gastrointestinal hemorrhage, unspecified Status: Acute Assessment and Plan: The patient has a lower GI bleed. He has received blood transfusions. He is on pantoprazole drip GI is on the case colonoscopy today (3) Paroxysmal atrial fibrillation: Code(s): I48.0 - Paroxysmal atrial fibrillation Status: Acute Assessment and Plan: patient has paroxysmal atrial fibrillation. Currently he is in sinus rhythm. He was on Eliquis. (4) (HFpEF) heart failure with preserved ejection fraction: Qualifiers: Heart failure chronicity: acute Qualified Code(s): I50.31 - Acute diastolic (congestive) heart failure Code(s): I50.30 - Unspecified diastolic (congestive) heart failure Status: Acute Assessment and Plan: the patient has diastolic dysfunction, mitral regurgitation, and paroxysmal atrial fibrillation. His systolic function is fine (5) DM II (diabetes mellitus, type II), controlled: Qualifiers: Diabetes mellitus complication status: without complication Diabetes mellitus prison insulin use: without prison use Qualified Code(s): E11.9 - Type 2 diabetes mellitus without complications Code(s): E11.9 - Type 2 diabetes mellitus without complications Status: Acute Assessment and Plan: he is on Accu-Cheks and sliding-scale insulin (6) Hypertension: Qualifiers: Hypertension type: essential hypertension Qualified Code(s): I10 - Essential (primary) hypertension Code(s): I10 - Essential (primary) hypertension Status: Acute Assessment and Plan: his blood pressure is under good control (7) Hypokalemia: Code(s): E87.6 - Hypokalemia Status: Acute Assessment and Plan: Potassium low again. Will give a care a Subjective Date/time seen: 04/03/20 08:49 Interval history: Patient is alert. He had his bowel prep for his colonoscopy overnight. He did get much sleep. No chest pain or shortness of breath Review of Systems Cardiovascular: Cardiovascular: Reports no additional cardiovascular complaints Respiratory: Respiratory: Reports no additional respiratory complaints Gastrointestinal: Gastrointestinal: Reports no additional gastrointestinal complaints Genitourinary: Genitourinary: Reports no additional male genitourinary complaints Exam Narrative: Exam Narrative: WDWN in NAD skin no rash head ncat lungs clear cor reg no rub abd BS+ nontender and soft ext no edema. Objective Data Vital Signs Vital Signs: Vital Signs - 24 hr 04/02/20 10:00 04/02/20 11:55 04/02/20 12:17 Temperature 36.6 C 36.8 C Pulse Rate 55 L 55 L 55 L Respiratory Rate 15 16 18 Blood Pressure 152/69 H 147/72 H 151/72 H Pulse Oximetry 98 99 97 04/02/20 12:20 04/02/20 13:17 04/02/20 14:17 Temperature 36.4 C L 36.6 C Pulse Rate 58 L 58 L 51 L Respiratory Rate 18 16 Blood Pressure 168/87 H 154/54 H Pulse Oximetry 98 99 04/02/20 15:17 04/02/20 20:26 04/02/20 22:00 Temperature 36.5 C 36.3 C L Pulse Rate 48 L 62 54 L Respiratory Rate 16 18 Blood Pressure 141/62 H 158/67 H Pulse Oximetry 100 98 04/03/20 06:00 Temperature 36.5 C Pulse Rate 64 Respiratory Rate 18 Blood Pressure 130/64 Pulse Oximetry 96 Intake/Output Intake/Output:
[2020-04-03] MEDS: PANTOPRAZOLE SODIUM IV 40 MG VIAL IV PUSH (08:58)
[2020-04-03] MEDS: ATORVASTATIN 40 MG TABLET PO (08:58)
[2020-04-03] MEDS: SODIUM BICARBONATE TAB 650 MG TABLET 1300 MG PO ×2 (08:58→18:22)
[2020-04-03] MEDS: AMIODARONE HCL 200 MG TABLET PO (08:59)
[2020-04-03] MEDS: KCL 20 MEQ/SW 100 ML 100 ML 50 MEQ IVPB (10:08)
[2020-04-03 11:32] LABS: Add Urine Microscopic? YES; Appearance Urine Clear (Clear); Bilirubin Urine Negative (Negative); Blood Urine Negative (Negative); Color Urine Colorless (Yellow); Glucose Urine UA 1+ mg/dL (Negative); Ketones Urine Negative (Negative); Leukocyte Esterase Ur Negative LEU/UL (NEGATIVE); Nitrate Urine Negative (Negative); Protein Urine 2+ mg/dL (Negative); RBC Urine 0-2 /hpf (0-2); Urobilinogen Urine Negative mg/dL (<2.0)
[2020-04-03 11:39] LABS: Creatinine Urine 22.2 mg/dL; Total Protein Urine Random 183 mg/dL
[2020-04-03 11:41] LABS: Sodium Urine Random 124 meq/L
[2020-04-03 12:51] LABS: Glucose Point of Care 87 (65-105)
[2020-04-03] MEDS: LACTATED RINGERS 1,000 ML 150 ML IV CONT (12:56)
--- NOTE | 2020-04-03 15:19 | PM.IMPN ---
Progress Note: A&P Assessment and Plan (1) Gastrointestinal bleed: Code(s): K92.2 - Gastrointestinal hemorrhage, unspecified Status: Acute Assessment and Plan: has received 3 units of packed cells and hemoglobin at 8.7 Holding his Eliquis . Protonix EGD and colon today mild gastris and diverticular disease with no active bleeding but felt to be diverticular bleed. advance diet today (2) Chronic kidney disease, stage 4 (severe): Code(s): N18.4 - Chronic kidney disease, stage 4 (severe) Status: Acute Assessment and Plan: acute on chronic stage 3-4 renal failure probable secondary to decreased renal perfusion with hypotension secondary to GI bleed. Creatinine 2.5 in May of 2018. Renal sonogram unchanged and no obstruction. transfused and continue gentle hydration with bicarbonate creatinine today 3.1 down from 4.3. (3) (HFpEF) heart failure with preserved ejection fraction: Qualifiers: Heart failure chronicity: acute Qualified Code(s): I50.31 - Acute diastolic (congestive) heart failure Code(s): I50.30 - Unspecified diastolic (congestive) heart failure Status: Acute Assessment and Plan: If blood pressure remains as it is we can continue with his Lasix and metoprolol. But hold of his blood pressures less than 110/60. ECHO 06/2019 Summary 1. Left atrial chamber dimension is severely enlarged. 2. The left ventricle is of normal size with moderate concentric left ventricular hypertrophy. Left ventricular function is at the lower end of normal with an estimated ejection fraction 50-55%, although is calculated 63%. There are no segmental wall motion abnormalities. 3. There is moderate aortic valve calcification with no significant stenosis. 4. There is moderate to moderately severe eccentric mitral valve regurgitation. 5. There is mild tricuspid valve regurgitation. 6. No pulmonary hypertension, estimated pulmonary arterial systolic pressureis 32 mmHg. 7. Dilated inferior vena cava with <50% collapse upon inspiration consistent with elevated right atrial pressure, 10 mmHg. 8. Atrial fibrillation. (9) Mitral regurgitation: Code(s): I34.0 - Nonrheumatic mitral (valve) insufficiency Status: Acute Assessment and Plan: Chronic thus more chronic diastolic heart failure. holding Lasix with renal failure (4) Type 2 diabetes mellitus: Code(s): E11.9 - Type 2 diabetes mellitus without complications Status: Acute Assessment and Plan: Accu-Cheks every 6 hours. (5) Anemia due to GI blood loss: Code(s): D50.0 - Iron deficiency anemia secondary to blood loss (chronic) Status: Acute Assessment and Plan: transfuse to keep hemoglobin close to 8 with his coronary disease. Received 3rd unit 04/02. Subjective Date/time seen: 04/03/20 15:19 Interval history: date of visit 04/03 74-year-old white male with history of atrial fibrillation on Eliquis for anticoagulation and history of coronary disease status post stent of LAD 06/04 presented to the hospital with weakness and bright red blood per rectum. Feels better this a.m. after pressure zohra with transfusion of 3 units of packed cells. Hemoglobin this a.m. 8.7 no abdominal pain nausea or vomiting or hematemesis. EGD and colon today no active bleeding Exam Narrative: Exam Narrative: blood pressure now 132/84 pulse is 56 and regular afebrile 95% RA pupils equal reactive to light sclera anicteric lungs clear CV [place] regular rate rhythm abdomen is soft nontender extremities without edema distal pulses are 2+ neuro alert pleasant cooperative no focal deficits Objective Data Vital Signs Vital Signs: Vital Signs - 24 hr 04/02/20 20:26 04/02/20 22:00 04/03/20 06:00 Temperature 36.3 C L 36.5 C Pulse Rate 62 54 L 64 Respiratory Rate 18 18 Blood Pressure 158/67 H 130/64 Pulse Oximetry 98 96 04/03/20 08:59 04/03/20 12:5
[2020-04-03 17:56] LABS: Glucose Point of Care 106 (65-105)
[2020-04-03] MEDS: SODIUM BICARBONATE 8.4% 100 MEQ in DEXTROSE 5% 1,000 ML 1,000 ML 50 MEQ IV CONT (18:25)
[2020-04-03] MEDS: METOPROLOL SUCCINATE EXT REL 50 MG TABCR PO (20:36)
[2020-04-03 22:34] LABS: Glucose Point of Care 164 (65-105)
[2020-04-04 06:00] VITALS: BP 116/55; PULSE 64; RESP 20; TEMP 37.1; O2SAT 98
[2020-04-04 06:34] LABS: Basophils Absolute Auto 0.1 K/mm3 (0.0-0.1); Basophils Percent Auto 0.5 % (0.2-1.2); Eosinophils Absolute Auto 0.3 K/mm3 (0-0.3); Eosinophils Percent Auto 2.9 % (0-4.4); Hematocrit 24.3 % (42.0-52.0); Hemoglobin 8.3 g/dL (14.0-18.0); Immature Granulocyte Absolute 0.07 K/mm3 (0.00-0.031); Immature Granulocyte Percent A 0.8 % (0-0.5); Lymphocytes Percent Auto 9.7 % (18.3-44.2); Mean Corpuscular HGB Conc 34.2 g/dl (32-36); Mean Corpuscular Hemoglobin 31.2 pg (26-34); Mean Corpuscular Volume 91.4 fl (80-100); Mean Platelet Volume 9.7 fl (7.4-10.4); Monocytes Absolute Auto 0.8 K/mm3 (0.1-0.6); Monocytes Percent Auto 8.4 % (2.6-8.5); Neutrophils Absolute Auto 7.3 K/mm3 (1.3-6.7); Neutrophils Percent Auto 77.7 % (45.5-73.1); Platelet Count Result 165 k/mm3 (150-375); Red Blood Count 2.66 M/mm3 (4.6-6.20); White Blood Count 9.3 K/mm3 (4.5-10.0)
[2020-04-04 06:51] LABS: Albumin Level 3.3 g/dL (3.5-5.1); Anion Gap 7 mmol/L (8-16); Blood Urea Nitrogen 35 mg/dL (9-20); Calcium 7.8 mg/dL (8.4-10.2); Carbon Dioxide 28 mmol/L (22-30); Chloride 103 mmol/L (98-107); Estimated CRCL calculation 22 ml/min; Estimated Glomerular Filt Rate 21; Glucose 119 mg/dL (75-110); Phosphorus 3.4 mg/dL (2.5-4.5); Potassium 3.1 mmol/L (3.4-5.0); Sodium 138 mmol/L (137-145)
--- NOTE | 2020-04-04 07:41 | WPDANESPN ---
Anes - Prog Note Post-Op Date/Time: 04/04/20 07:41 Cardiovascular status: normal Respiratory status: normal Airway patency: baseline Mental status: baseline Post-Op hydration status: normal Vital Signs: Last Vital Signs Temp 37.1 C 04/04/20 06:00 Pulse 64 04/04/20 06:00 Resp 20 04/04/20 06:00 BP 116/55 L 04/04/20 06:00 Pulse Ox 98 04/04/20 06:00 I/O: Intake & Output 04/03/20 04/03/20 04/04/20 15:59 23:59 07:59 Intake Total 50 720 400 Output Total 900 850 Balance 50 -180 -450 Laboratory Tests 04/04/20 06:09 04/04/20 06:09 04/03/20 04/03/20 04/03/20 11:16 11:16 12:48 WBC RBC Hgb Hct MCV MCH MCHC RDW Plt Count MPV Immature Gran % (Auto) Neut % (Auto) Lymph % (Auto) [place] % (Auto) Eos % (Auto) Baso % (Auto) Lymph # (Auto) [place] # (Auto) Eos # (Auto) Baso # (Auto) Abs Immat Gran (auto) Absolute Neuts (auto) Absolute Nucleated RBC Nucleated RBC % Sodium Potassium Chloride Carbon Dioxide Anion Gap BUN Creatinine Estim Creat Clear Calc Estimated GFR Glucose POC Capillary Glucose 87 Calcium Phosphorus Albumin Urine Color Colorless Urine Appearance Clear Urine pH 7.0 Ur Specific [place] 1.010 Urine Protein 2+ H Urine Glucose (UA) 1+ H Urine Ketones Negative Ur Blood (Man) Negative Urine Nitrate Negative Urine Bilirubin Negative Urine Urobilinogen Negative Ur Leukocyte Esterase Negative Urine RBC 0-2 U Random Total Protein 183 Ur Random Sodium 124 Urine Creatinine 22.2 04/03/20 04/03/20 04/04/20 17:53 20:35 06:09 WBC 9.3 RBC 2.66 L Hgb 8.3 L Hct 24.3 L MCV 91.4 MCH 31.2 MCHC 34.2 RDW 15.0 H Plt Count 165 MPV 9.7 Immature Gran % (Auto) 0.8 H Neut % (Auto) 77.7 H Lymph % (Auto) 9.7 L [place] % (Auto) 8.4 Eos % (Auto) 2.9 Baso % (Auto) 0.5 Lymph # (Auto) 0.90 [place] # (Auto) 0.8 H Eos # (Auto) 0.3 Baso # (Auto) 0.1 Abs Immat Gran (auto) 0.07 H Absolute Neuts (auto) 7.3 H Absolute Nucleated RBC 0.0 Nucleated RBC % 0.0 Sodium Potassium Chloride Carbon Dioxide Anion Gap BUN Creatinine Estim Creat Clear Calc Estimated GFR Glucose POC Capillary Glucose 106 164 H Calcium Phosphorus Albumin Urine Color Urine Appearance Urine pH Ur Specific [place] Urine Protein Urine Glucose (UA) Urine Ketones Ur Blood (Man) Urine Nitrate Urine Bilirubin Urine Urobilinogen Ur Leukocyte Esterase Urine RBC U Random Total Protein Ur Random Sodium Urine Creatinine 04/04/20 06:09 WBC RBC Hgb Hct MCV MCH MCHC RDW Plt Count MPV Immature Gran % (Auto) Neut % (Auto) Lymph % (Auto) [place] % (Auto) Eos % (Auto) Baso % (Auto) Lymph # (Auto) [place] # (Auto) Eos # (Auto) Baso # (Auto) Abs Immat Gran (auto) Absolute Neuts (auto) Absolute Nucleated RBC Nucleated RBC % Sodium 138 Potassium 3.1 L Chloride 103 Carbon Dioxide 28 Anion Gap 7 L BUN 35 H D Creatinine 2.90 H Estim Creat Clear Calc 22 Estimated GFR 21 L Glucose 119 H POC Capillary Glucose Calcium 7.8 L Phosphorus 3.4 Albumin 3.3 L Urine Color Urine Appearance Urine pH Ur Specific [place] Urine Protein Urine Glucose (UA) Urine Ketones Ur Blood (Man) Urine Nitrate Urine Bilirubin Urine Urobilinogen Ur Leukocyte Esterase Urine RBC U Random Total Protein Ur Random Sodium Urine Creatinine Post-procedural complaints: none Patient Feedback: Patient satisfied with anesthetic care.
--- NOTE | 2020-04-04 08:46 | PM.PNNEP ---
Progress Note: A&P Assessment and Plan (1) Acute on chronic kidney failure: Code(s): N17.9 - Acute kidney failure, unspecified; N18.9 - Chronic kidney disease, unspecified Status: Acute Assessment and Plan: The patient has chronic kidney disease. This is most likely due to diabetes, hypertension, and vascular disease. he has acute kidney injury in addition, his creatinine has improved to his baseline. Probably related to hydration status. his acidosis is better. We can stop the bicarb drip. (2) Acute lower gastrointestinal bleeding: Code(s): K92.2 - Gastrointestinal hemorrhage, unspecified Status: Acute Assessment and Plan: The patient has a lower GI bleed. He has received blood transfusions. He is on pantoprazole drip GI is on the case colonoscopy Showed internal hemorrhoids and diverticuli. Endoscopy showed gastritis hiatal hernia and a Schatzki's ring. (3) Paroxysmal atrial fibrillation: Code(s): I48.0 - Paroxysmal atrial fibrillation Status: Acute Assessment and Plan: patient has paroxysmal atrial fibrillation. Currently he is in sinus rhythm. He was on Eliquis. Cardiology is on the case (4) (HFpEF) heart failure with preserved ejection fraction: Qualifiers: Heart failure chronicity: acute Qualified Code(s): I50.31 - Acute diastolic (congestive) heart failure Code(s): I50.30 - Unspecified diastolic (congestive) heart failure Status: Acute Assessment and Plan: the patient has diastolic dysfunction, mitral regurgitation, and paroxysmal atrial fibrillation. His systolic function is fine (5) DM II (diabetes mellitus, type II), controlled: Qualifiers: Diabetes mellitus terminal carman insulin use: without intermediate use Diabetes mellitus complication status: without complication Qualified Code(s): E11.9 - Type 2 diabetes mellitus without complications Code(s): E11.9 - Type 2 diabetes mellitus without complications Status: Acute Assessment and Plan: he is on Accu-Cheks and sliding-scale insulin (6) Hypertension: Qualifiers: Hypertension type: essential hypertension Qualified Code(s): I10 - Essential (primary) hypertension Code(s): I10 - Essential (primary) hypertension Status: Acute Assessment and Plan: his blood pressure is under good control (7) Hypokalemia: Code(s): E87.6 - Hypokalemia Status: Acute Assessment and Plan: Potassium low again. Will supplement today. Stopping the bicarb drip will help as well. Subjective Date/time seen: 04/04/20 08:46 Interval history: Patient is alert. Scopes done yesterday. He feels good today. Review of Systems Cardiovascular: Cardiovascular: Reports no additional cardiovascular complaints Respiratory: Respiratory: Reports no additional respiratory complaints Gastrointestinal: Gastrointestinal: Reports no additional gastrointestinal complaints Genitourinary: Genitourinary: Reports no additional male genitourinary complaints Exam Narrative: Exam Narrative: WDWN in NAD skin no rash Or subcu nodules head ncat lungs clear cor reg no rub or gallop. 2/6 systolic ejection murmur abd BS+ nontender and soft ext no edema. Objective Data Vital Signs Vital Signs: Vital Signs - 24 hr 04/03/20 08:59 04/03/20 12:52 04/03/20 14:28 Temperature 36.3 C L Pulse Rate 64 67 72 Respiratory Rate 16 16 Blood Pressure 172/63 H 112/63 Pulse Oximetry 97 96 04/03/20 14:38 04/03/20 14:48 04/03/20 15:00 Temperature 36.8 C Pulse Rate 51 L 55 L 58 L Respiratory Rate 17 16 Blood Pressure 130/87 132/84 165/66 H Pulse Oximetry 97 95 98 04/03/20 20:36 04/03/20 22:00 04/04/20 06:00 Temperature 36.8 C 37.1 C Pulse Rate 64 59 L 64 Respiratory Rate 16 20 Blood Pressure 129/57 L 116/55 L Pulse Oximetry 96 98 Intake/Output Intake/
[2020-04-04 09:15] LABS: Glucose Point of Care 121 (65-105)
[2020-04-04 09:20] VITALS: PULSE 56
[2020-04-04] MEDS: POTASSIUM CHLORIDE 20 MEQ TABLET 40 MEQ PO (09:20)
[2020-04-04] MEDS: ATORVASTATIN 40 MG TABLET PO (09:20)
[2020-04-04] MEDS: AMIODARONE HCL 200 MG TABLET PO (09:20)
[2020-04-04] MEDS: SODIUM BICARBONATE TAB 650 MG TABLET 1300 MG PO (09:21)
[2020-04-04] MEDS: PANTOPRAZOLE 40 MG TABLET PO (09:21)
[2020-04-04 12:48] LABS: Glucose Point of Care 160 (65-105)
--- NOTE | 2020-04-04 13:29 | PM.DS ---
DS: Admitting Diagnosis Admitting Diagnosis Admitting Diagnosis: Lower gI hemorrhage DS: Discharge Diagnosis Discharge Diagnosis (1) Gastrointestinal bleed: Code(s): K92.2 - Gastrointestinal hemorrhage, unspecified Status: Acute Assessment and Plan: Patient presented with GI bleed. He is on Eliquis chronically. His Hgb was 6.1 and he received a total of 3 units of packed cells. hgb climbed to 8 range and remained stable. He was started on Protonix. EGD and colon showing mild gastris and diverticular disease with no active bleeding. Overall, felt to be diverticular bleed. Diet advanced and he tolerated this well (2) Anemia due to GI blood loss: Code(s): D50.0 - Iron deficiency anemia secondary to blood loss (chronic) Status: Acute Assessment and Plan: As above. He received a total of 3U PRBC. Hgb stable in the 8 range. (3) Acute on chronic kidney failure: Qualifiers: Acute renal failure type: unspecified Chronic kidney disease stage: stage 4 (severe) Qualified Code(s): N17.9 - Acute kidney failure, unspecified; N18.4 - Chronic kidney disease, stage 4 (severe) Code(s): N17.9 - Acute kidney failure, unspecified; N18.9 - Chronic kidney disease, unspecified Status: Acute Assessment and Plan: [place] patient with STEPHAN with Cr 4.3. He has underlying CKD IV with Cr in the 3 range mostly this year. [place] STEPHAN probable secondary to decreased renal perfusion with hypotension secondary to GI bleed. Creatinine monitored serially and improved to 2.9 at time of discharge related to improved renal perfusion. Renal sonogram unchanged and no obstruction. (4) (HFpEF) heart failure with preserved ejection fraction: Qualifiers: Heart failure chronicity: acute Qualified Code(s): I50.31 - Acute diastolic (congestive) heart failure Code(s): I50.30 - Unspecified diastolic (congestive) heart failure Status: Acute Assessment and Plan: Echo from 06/2019 sowing EF 50-55% and moderately severe eccentric mitral valve regurgitation. Due to the hypoperfusion and STEPHAN, most of his cardiac and anti-HTN medications were held. Patient to check BP at home with plans to call Dr Sevilla who will advance his medications as BP tolerates. (5) Type 2 diabetes mellitus: Code(s): E11.9 - Type 2 diabetes mellitus without complications Status: Acute Assessment and Plan: A1c 6.0. Glucose remained well controlled. He was monitored with Accu-Cheks every 6 hours. DS: Summary Hospital Course Reason for hospitalization: 74yo male here for blood in stool and found to be anemic. Please see H&P for details. Hospital Course: As above. Time Spent with Patient Time attestation: Total time spent providing and/or coordinating discharge services:35 minutes Time spent: Greater than 30 minutes Specific discharge activities: Discussed with chief juvenile probation officer,patient seen and examined, prepared medical record Exam Narrative: Exam Narrative: AF 116/55 56 20 98% ra Gen - NARD Chest - CTA bilaterally, nml RR CV - RRR S1/S2 Abd - Soft, NT/ND, Positive BS Ext - mild RLE edema but negative Aline's and no cords. Neuro - Alert and oriented. Nonfocal exam. Psych - Nml mood and affect Skin - Warm and dry DS: Data Data Completed and Pending Pending studies at discharge: Pending at discharge 04/03/20 14:29 Surgical [PTH] Routine Labs on day of discharge: Labs from last 24 hours 04/04/20 04/04/20 04/04/20 12:44 09:13 06:09 WBC RBC Hgb Hct MCV MCH MCHC RDW Plt Count MPV Immature Gran % (Auto) Neut % (Auto) Lymph % (Auto) [place] % (Auto) Eos % (Auto) Baso % (Auto) Lymph # (Auto) [place] # (Auto) Eos # (Auto) Baso # (Auto) Abs Immat Gran (auto) Absolute Neuts (auto) Absolute Nucleated RBC Nucleated RBC % Sodium 138 Potassium 3.1 L Chl
--- NOTE | 2020-04-04 15:19 | WPDGIPROGNO ---
Progress Note: A&P Assessment and Plan (1) Diverticular hemorrhage: Code(s): K57.31 - Diverticulosis of large intestine without perforation or abscess with bleeding Status: Acute Assessment and Plan: no more bleeding, stable hb ok to discharge home (2) Anemia: Code(s): D64.9 - Anemia, unspecified Status: Acute (3) Anemia due to GI blood loss: Code(s): D50.0 - Iron deficiency anemia secondary to blood loss (chronic) Status: Acute (4) Gastrointestinal bleed: Code(s): K92.2 - Gastrointestinal hemorrhage, unspecified Status: Acute Subjective Date/time seen: 04/04/20 15:19 Interval history: no more bleeding, tolerating diet Review of Systems Review of Systems: All systems reviewed & are unremarkable except as noted in HPI and below Exam Const: General: comfortable and no acute distress HENMT: General nose exam: Normal nares present Eyes: General: appearance normal, both eyes and all related structures Neck: Neck: no JVD Resp: Auscultation: clear to auscultation bilaterally Cardio: Rate: regular rate Rhythm: regular rhythm GI: Inspection: non-distended GI Palp: Yes Soft to palpation Skin: General skin exam: normal color Neuro: General: gait normal Speech: normal speech Extrem: General: normal to inspection Psych: Mental Status: mental status grossly normal Objective Data Vital Signs Vital Signs: Vital Signs - 24 hr 04/03/20 20:36 04/03/20 22:00 04/04/20 06:00 Temperature 98.3 F 98.8 F Pulse Rate 64 59 L 64 Respiratory Rate 16 20 Blood Pressure 129/57 L 116/55 L Pulse Oximetry 96 98 04/04/20 09:20 Temperature Pulse Rate 56 L Respiratory Rate Blood Pressure Pulse Oximetry Intake/Output Intake/Output: Intake & Output 04/01/20 04/02/20 04/03/20 04/04/20 23:59 23:59 23:59 23:59 Intake Total 1200 2779.3 2063 760 Output Total 1650 900 850 Balance 1200 1129.3 1163 -90 Meds/Results Medications: Active Medications Generic Name Dose Route Start Last Admin Trade Name Freq PRN Reason Stop Dose Admin Amiodarone HCl 200 mg 04/02/20 10:45 04/04/20 09:20 Pacerone PO 200 mg DAILY@0800 YING Administration Atorvastatin Calcium 40 mg 04/02/20 09:00 04/04/20 09:20 Lipitor PO 40 mg DAILY YING Administration Dextrose 12.5 gm 04/01/20 13:33 Dextrose 50% Syringe IV PUSH PRN PRN Hypoglycemia Protocol Glucagon 1 mg 04/01/20 13:33 Glucagon For Inj IM PRN PRN Hypoglycemia Protocol Glucose 15 gm 04/01/20 13:33 Glutose 15 PO PRN PRN Hypoglycemia Protocol Dextrose 1,000 mls @ 100 mls/hr 04/01/20 13:33 Dextrose 5% 1,000 Ml IVPB PRN PRN Hypoglycemia Protocol Insulin Aspart 3 - 6 units 04/03/20 16:30 04/04/20 12:58 Novolog SUB-Q Not Given ACHS YING Protocol Metoprolol Succinate 50 mg 04/02/20 21:00 04/03/20 20:36 Toprol Xl PO 50 mg HS YING Administration Ondansetron HCl 4 mg 04/01/20 13:04 Zofran Inj IV PUSH Q4H PRN Nausea Pantoprazole Sodium 40 mg 04/04/20 09:00 04/04/20 09:21 Protonix PO 40 mg QAM YING Administration Sodium Bicarbonate 1,300 mg 04/02/20 09:00 04/04/20 09:21 Sodium Bicarbonate Tab PO 04/05/20 09:01 1,300 mg TID YING Administration Radiology Results: ITS Impressions Renal Ultrasound 04/01/20 17:01 IMPRESSION: No significant change since 05/20/2018 Venous Doppler Study 04/04/20 13:17 IMPRESSION: 1. No right lower extremity deep venous thrombosis. 2. Small Soto's cyst. Labs Labs: Laboratory Results - last 24 hr 04/03/20 04/03/20 04/04/20 17:53 20:35 06:09 WBC 9.3 RBC 2.66 L Hgb 8.3 L Hct 24.3 L MCV 91.4 MCH 31.2 MCHC 34.2 RDW 15.0 H Plt Count 165 MPV 9.7 Immature Gran % (Auto) 0.8 H Neut % (Auto) 77.7 H Lymph % (Auto) 9.7 L [place] % (Auto) 8.4
== END 2020-04-04 15:15 | disposition home or self-care (01) | DRG 378 ==
LOC: ANHED 09:51 → ANHICU 15:11 → ANH3MEDSUR 04-03 07:54 → ANHICU 04-05 16:22
PROVIDERS: Internal Medicine; Internal Medicine Gastroenterology; Internal Medicine Nephrology; Nurse Practitioner; Admitting Provider Family Medicine; Emergency Provider General Practice; PCP Family Medicine; Visit Provider Internal Medicine
PROC: 0DJ08ZZ Inspection of Upper Intestinal Tract, Via Natural or Artificial Opening Endoscopic (ICD-10-PCS; CPT 43235; principal; 2020-04-03 12:30)
DX: K57.31 Diverticulosis of large intestine without perforation or abscess with bleeding (principal); D62 Acute posthemorrhagic anemia; N17.9 Acute kidney failure, unspecified; N18.4 Chronic kidney disease, stage 4 (severe); I13.0 Hypertensive heart and chronic kidney disease with heart failure and stage 1 through stage 4 chronic kidney disease, or unspecified chronic kidney disease; I50.32 Chronic diastolic (congestive) heart failure; E11.22 Type 2 diabetes mellitus with diabetic chronic kidney disease; I48.0 Paroxysmal atrial fibrillation; I12.9 Hypertensive chronic kidney disease with stage 1 through stage 4 chronic kidney disease, or unspecified chronic kidney disease; K44.9 Diaphragmatic hernia without obstruction or gangrene; K22.2 Esophageal obstruction; K29.70 Gastritis, unspecified, without bleeding; E78.00 Pure hypercholesterolemia, unspecified; I25.10 Atherosclerotic heart disease of native coronary artery without angina pectoris; K63.5 Polyp of colon; K62.89 Other specified diseases of anus and rectum; K64.8 Other hemorrhoids; I34.0 Nonrheumatic mitral (valve) insufficiency; E87.6 Hypokalemia; I95.9 Hypotension, unspecified; E86.0 Dehydration; M19.90 Unspecified osteoarthritis, unspecified site; I25.2 Old myocardial infarction; Z87.11 Personal history of peptic ulcer disease; Z79.01 Long term (current) use of anticoagulants; Z87.891 Personal history of nicotine dependence; Z95.5 Presence of coronary angioplasty implant and graft; Z85.53 Personal history of malignant neoplasm of renal pelvis
CPT/HCPCS: 36415; 36430; 76775; 80053; 80069; 81001; 82274; 82570; 83036; 83735; 84156; 84300; 85014; 85018; 85025; 85610; 85730; 86850; 86900; 86901; 86920; 88305; 93005; 93971; 96365; 99285; A9270; C9113; J2704; J3480; J7030; J7060; J7070; J7120; P9016

== ENCOUNTER 2020-10-25 10:52 | Outpatient (CLI) | payer MEDICARE, SELFPAY ==
--- NOTE | ~2020-10-25 | US_ITS ---
EXAMINATION: US renal BI DATE: 10/25/2020 11:22 INDICATION: Chronic kidney disease stage IV. TECHNIQUE: Multiple ultrasound grayscale images of the kidneys were obtained. COMPARISON: Abdomen MRI 04/06/2013 FINDINGS: The right kidney measures 9.9 x 5.9 x 6.8 cm. The left kidney measures 10.6 x 6.2 x 5.0 cm. The kidne ys demonstrate normal parenchymal echogenicity. There is a shadowing mass in left kidney lower pole c orrelating with changes of cryoablation on prior imaging. There is no hydronephrosis. The bladder is normal. IMPRESSION: 1. Normal kidney sizes. No hydronephrosis. 2. Chronic changes of cryoablation in left kidney lower pole. Reviewed, dictated and finalized at location A. MANAGER
== END 2020-10-25 10:53 | disposition home or self-care (01) ==
PROVIDERS: PCP Family Medicine; Visit Provider Internal Medicine Nephrology
DX: N18.4 Chronic kidney disease, stage 4 (severe) (principal)
CPT/HCPCS: 76775

== ENCOUNTER 2020-11-23 18:25 | Inpatient (IN) | payer MEDICARE, SELFPAY ==
[2020-11-23] VITALS (38 sets, daily range): BP systolic 152–194; BP diastolic 73–113; PULSE 56–84; RESP 15–25; TEMP 36.3–36.9; O2SAT 91–97; BMI 35.6
--- NOTE | ~2020-11-23 | CT_ITS ---
EXAMINATION: CT diagnostic chest wo con DATE: 11/23/2020 20:23 INDICATION: Shortness of breath TECHNIQUE: Computed tomography (CT) of the chest was performed without intravenous contrast. The dose -length product (DLP) was 738.09 mGy-cm. Automated exposure control and iterative reconstruction tech Merlin were employed. COMPARISON: 05/20/2018 FINDINGS: There are small left and moderate size right pleural effusions with associated passive depe ndent atelectasis. More focal airspace opacities are seen in the right lower lobe. There is no pneumo thorax. There are patchy opacities in the perihilar regions of the upper lobes. A few stable scattere d pulmonary nodules are consistent with old granulomatous disease. No pathologically enlarged thoraci c lymph nodes are identified. The heart size is normal. There is calcified coronary artery atheroscle rosis. Severe thoracic spondylosis is again noted. IMPRESSION: 1. Small left and moderate size pleural effusions. 2. Atelectasis and pneumonia of the lower lobes and minimal bilateral perihilar pneumonia. Reviewed, dictated and finalized at location A.
--- NOTE | ~2020-11-23 | XR_ITS ---
EXAMINATION: XR chest 1V portable INDICATION: Congestive heart failure and shortness of breath TECHNIQUE: Portable AP chest at 1257 hours COMPARISON: 11/23/2020 FINDINGS: Small pleural effusions persist but have decreased. There is also decrease in bilateral per ihilar and lower lung zone. There is no pneumothorax. The cardiomediastinal silhouette is normal. The visualized osseous structures are unremarkable. IMPRESSION: 1. Small pleural effusions, decreased in size. 2. Improved bilateral perihilar and bilateral lower lung zone opacities, consistent with resolving at electasis and/or pneumonia and/or pulmonary edema. Reviewed, dictated and finalized at location B. IMPRESSION: 1. Small pleural effusions, decreased in size. 2. Improved bilateral perihilar and bilateral lower lung zone opacities, consis tent with resolving atelectasis and/or pneumonia and/or pulmonary edema.
--- NOTE | ~2020-11-23 | XR_ITS ---
EXAMINATION: XR chest 2V DATE: 11/23/2020 19:08 INDICATION: Weakness and shortness of breath TECHNIQUE: AP and lateral views of the chest are obtained. COMPARISON: 02/27/2020 FINDINGS: There are small pleural effusions. Airspace opacities are present in the lung bases and lef t midlung zone. There is no pneumothorax. The heart size is upper limits of normal for technique. The re is severe thoracic spondylosis. IMPRESSION: 1. Airspace opacities of the lung bases and left midlung zone, consistent with atelectasis versus pne umonia. 2. Small pleural effusions. Reviewed, dictated and finalized at location A. IMPRESSION: 1. Airspace opacities of the lung bases and left midlung zone, consistent with atelectasis versus pneumonia. 2. Small pleural effusions.
--- NOTE | 2020-11-23 18:48 | ECG_ITS ---
Measurements Intervals [place] Rate: 60 P: 16 DE: 199 QRS: 257 QRSD: 125 T: 69 QT: 455 QTc: 457 Interpretive Statements SINUS RHYTHM INTRAVENTRICULAR CONDUCTION DELAY BORDERLINE R WAVE PROGRESSION, ANTERIOR LEADS BORDERLINE ST-T WAVE ABNORMALITY- HIGH LATERAL LEADS BASELINE ARTIFACT- I, II, III, AVR, AVL, AVF, V1-V6 BORDERLINE ECG Electronically Signed On 11-24-2020 7:10:49 CDT by Vikram Ochoa D.O.
--- NOTE | 2020-11-23 19:15 | ED.SOB ---
HPI - SOB/Dyspnea General Chief Complaint: Weakness Stated Complaint: weakness Time Seen by Provider: 11/23/20 18:42 Source: patient Mode of arrival: ambulatory Limitations: no limitations History of Present Illness HPI Narrative: Patient is a 75-year-old male complaining of shortness of breath, worse with exertion, I cannot even walk a few steps without being short of breath , accompanied by increasing weight gain x1 month but worse this past week. Patient states that he has gained approximately 12 pounds over the past week. 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 Patient denies any chest pain, abdominal pain, nausea, vomiting, fever or chills Related Data Home Medications Medication Instructions Recorded Confirmed atorvastatin 40 mg PO DAILY 07/14/19 04/13/20 amiodarone 200 mg DAILY 02/25/20 05/11/20 hydrochlorothiazide 25 mg tablet 25 mg PO DAILY 05/11/20 05/11/20 potassium chloride 10 mEq 10 meq PO DAILY 11/08/20 capsule,extended release Allergies Allergy/AdvReac Type Severity Reaction Status Date / Time No Known Allergies Allergy Unknown Verified 11/08/20 10:32 Review of Systems Review of Systems: All systems reviewed & are unremarkable except as noted in HPI and below Constitutional: Constitutional: Denies body ache(s), Denies chills, Denies excessive sweating, Denies fatigue, Denies fever(s), Denies headache(s), Denies lethargy, Denies malaise, Denies weakness and Denies weight loss Eyes: Eyes: Denies blurry vision, Denies change in vision and Denies loss of vision ENT: Denies dizziness, Denies ear discharge, Denies headache(s), Denies lip swelling, Denies epistaxis, Denies nasal congestion, Denies neck pain, Denies throat swelling and Denies tongue swelling Cardiovascular: Cardiovascular: Denies chest pain, Denies chest pain at rest, Denies chest pain with activity, Denies diaphoresis, Denies rapid heart rate, Denies edema, Denies irregular heart rhythm, Denies lightheadedness and Denies palpitations Respiratory: Respiratory: Denies chest congestion, Denies cough and Denies hemoptysis Gastrointestinal: Gastrointestinal: Denies abdominal pain, Denies melena, Denies hematochezia, Denies diarrhea, Denies nausea, Denies vomiting and Denies hematemesis Musculoskeletal: Musculoskeletal: Denies abnormal gait, Denies deformity, Denies joint swelling, Denies limited range of motion, Denies neck pain and Denies numbness Neurologic: Denies Abnormal speech present, Denies abnormal gait, Denies confusion, Denies dizziness, Denies headache(s), Denies focal weakness, Denies loss of vision, Denies numbness, Denies Other visual disturbances, Denies Sensory deficit (Neuro) and Denies weakness Psychiatric: Psychiatric: Denies confusion, Denies depression, Denies auditory hallucinations, Denies homicidal ideation and Denies suicidal ideation Endocrine: Endocrine: Denies cold intolerance, Denies excessive sweating, Denies fatigue, Denies heat intolerance and Denies palpitations Hematologic/Lymphatic: Hematologic/Lymphatic: Denies easy bleeding and Denies easy bruising Allergic/Immunologic: Allergic/Immunologic: Denies lip swelling, Denies throat swelling and Denies tongue swelling PMFSH Past Medical History Medical History Anemia of chronic disease Arthritis Chronic kidney disease, stage 4 (severe) Coronary artery disease History of non STEMI in May 2018 status post drug-eluting stent to the LAD. 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 rodent exterminator anticoagulation Diverticular hemorrhage Diverticulitis Heart failure with preserved ejection fraction Echocardiogram in June 2019 showed a severely enlarged left atrial chamber, normal left ventricular size with moderate concentric left ventricular hypertrophy, left ventricular function is at the lower end of normal with an estimated ejection fraction 50-55% (although calculat
[2020-11-23 19:28] LABS: Basophils Absolute Auto 0.1 K/mm3 (0.0-0.1); Basophils Percent Auto 0.5 % (0.2-1.2); Eosinophils Absolute Auto 0.1 K/mm3 (0-0.3); Hematocrit 23.7 % (42.0-52.0); Hemoglobin 7.3 g/dL (14.0-18.0); Immature Granulocyte Absolute 0.08 K/mm3 (0.00-0.031); Immature Granulocyte Percent A 0.8 % (0-0.5); Lymphocytes Absolute Auto 0.63 K/mm3 (0.9-3.2); Lymphocytes Percent Auto 6.3 % (18.3-44.2); Mean Corpuscular HGB Conc 30.8 g/dl (32-36); Mean Corpuscular Hemoglobin 26.9 pg (26-34); Mean Corpuscular Volume 87.5 fl (80-100); Mean Platelet Volume 9.4 fl (7.4-10.4); Monocytes Absolute Auto 0.7 K/mm3 (0.1-0.6); Monocytes Percent Auto 7.4 % (2.6-8.5); Neutrophils Absolute Auto 8.4 K/mm3 (1.3-6.7); Platelet Count Result 212 k/mm3 (150-375); Red Blood Count 2.71 M/mm3 (4.6-6.20); Red Cell Distribution Width 16.5 % (11.5-14.5)
[2020-11-23 19:45] LABS: Alanine Aminotransferase 24 U/L (4-50); Albumin Level 4.1 g/dL (3.5-5.1); Alkaline Phosphatase 69 U/L (38-126); Anion Gap 11 mmol/L (8-16); Aspartate Amino Transferase 23 U/L (17-59); Bilirubin,Total 0.5 mg/dL (0.2-1.3); Blood Urea Nitrogen 53 mg/dL (9-20); Calcium 8.3 mg/dL (8.4-10.2); Carbon Dioxide 20 mmol/L (22-30); Chloride 113 mmol/L (98-107); Estimated CRCL calculation 13 ml/min; Estimated Glomerular Filt Rate 11; Glucose 129 mg/dL (75-110); Potassium 3.6 mmol/L (3.4-5.0); Sodium 144 mmol/L (137-145)
[2020-11-23 19:54] LABS: NT Pro B Type Natriuretic Pept 10500 PG/ML (5-100)
[2020-11-23] MEDS: FUROSEMIDE INJ 40 MG/4 ML VIAL IV PUSH (20:11)
[2020-11-23 21:41] LABS: Lactic Acid Reflex 0.6 mmol/L (0.7-2.1)
[2020-11-23] MEDS: diphenhydrAMINE HCl CAP 25 MG CAPSULE PO (21:55)
[2020-11-23] MEDS: ACETAMINOPHEN 325 MG TABLET 650 MG PO (21:55)
[2020-11-24] VITALS (25 sets, daily range): BP systolic 117–178; BP diastolic 70–99; PULSE 53–70; RESP 18–24; TEMP 36.2–36.7; O2SAT 90–100
--- NOTE | 2020-11-24 00:30 | ADMGEN ---
This patient, Elias Aguirre, was admitted to IMU Room 213-01 on 11/23/20 at 2338. Patient/family oriented to hospital policies and general routines including ID bracelet, bed and alarms, visiting hours, pain management, procedures, bathroom and other care routines, personal items, smoking policy, room service/diet, and visiting hours. Information on how to activate the Rapid Response Team has been discussed. Patient/Family are encouraged to report perceived risks to care and to ask questions if they do not understand what they are told or what they should do.
--- NOTE | 2020-11-24 00:50 | PM.IMHP ---
H&P: HPI History of Present Illness Date/Time: 11/24/20 00:50 Chief Complaint: Shortness of breath Narrative: 75-year-old male With a past medical history of diastolic congestive heart failure, moderate mitral valve regurgitation, chronic kidney disease transitioning to stage 5, and anemia of chronic disease who presented to the ER with increasing shortness of breath and weight gain. The patient reports that he went to Dr. Sevilla's office around the 25 October at that time his Lasix was discontinued. Since that time he has developed progressive shortness of breath and weight gain for the last month with at least a 12 lb weight gain. He reports that he has been having intermittent cough for the last month. His cough has been productive of brown sputum. He reports that the sputum production usually occurs when he lays down in bed and he notices some significant post nasal drip/mucous prior to his productive cough. He is chronically chilled and denies having any fevers. He received his 2nd adviser COVID-19 vaccine about a month ago. 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 He has chronic lower extremity edema that he thinks is pretty much unchanged. He denies any chest pain. He thinks that he snores. He reports that his primary care physician wants him to have an outpatient sleep study. He reports that over the last month or so he has not felt well rested in the morning. He is noticed himself nodding off. He sometimes even has trouble staying awake at work. His oxygen saturations were normal on room air when he was awake but with sleepy did drop down to 86% despite being on 2 L nasal cannula. He reports nocturia up to 4 5 times a night. He has to sit on the toilet for several minutes to make sure that he has completely emptied his bladder. He denies any dysuria, increased urinary urgency, difficulty starting or stopping history for hematuria. He had an outpatient renal ultrasound that was unchanged from baseline. Nursing staff checked a postvoid residual after the patient had urinated 340 mL his bladder was empty postvoid. He denies any hematochezia or melena. He has had normal bowel movements. He has not noticed any increased abdominal distension. He denies any abdominal pain. He was started on levothyroxine 11/15/2020 due to new diagnosis of hypothyroidism. Review of Systems Review of Systems: Narrative: 12 systems were reviewed with pertinent positives and negatives per HPI. Except as documented in the HPI, all other systems were reviewed and are negative. [facility] Past Medical History Medical History (Updated 11/24/20 @ 02:35 by Tita Feldman DO) Anemia of chronic disease Arthritis Cataracts, bilateral Maturing Chronic kidney disease, stage V Coronary artery disease History of non STEMI in May 2018 status post drug-eluting stent to the LAD. 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 Diverticular hemorrhage Diverticulitis Heart failure with preserved ejection fraction Echocardiogram in June 2019 showed a severely enlarged left atrial chamber, normal left ventricular size with moderate concentric left ventricular hypertrophy, left ventricular function is at the lower end of normal with an estimated ejection fraction 50-55% (although calculated at 63%), no wall motion abnormalities, moderate aortic valve calcification with no significant stenosis, moderate to moderately severe eccentric mitral valve regurgitation, mild tricuspid valve regurgitation, estimated pulmonary arterial systolic pressure of 32 mmHg, dilated inferior vena cava with <50% collapse upon inspiration consistent with elevated right atrial pressure, 10 mmHg., transesophageal echocardiogram September 2019 demonstrated moderate mitral valve regurgitation with stable EF History of cardioversion x2 Hypercholesteremia Hypertension Hypothyroidism Kidney stones (~2008) Mitral regurgitation Paroxysmal atrial fibrillation Status po
[2020-11-24] MEDS: hydrALAZINE HCL 20 MG/ML VIAL 10 MG IV PUSH (05:36)
[2020-11-24] MEDS: LEVOTHYROXINE SODIUM 50 MCG TABLET PO (05:37)
[2020-11-24 07:41] LABS: Hematocrit 27.9 % (42.0-52.0); Hemoglobin 8.7 g/dL (14.0-18.0); Mean Corpuscular HGB Conc 31.2 g/dl (32-36); Mean Corpuscular Hemoglobin 27.8 pg (26-34); Mean Corpuscular Volume 89.1 fl (80-100); Mean Platelet Volume 9.1 fl (7.4-10.4); Platelet Count Result 217 k/mm3 (150-375); Red Blood Count 3.13 M/mm3 (4.6-6.20); Red Cell Distribution Width 15.9 % (11.5-14.5); White Blood Count 8.5 K/mm3 (4.5-10.0)
[2020-11-24 07:54] LABS: Anion Gap 12 mmol/L (8-16); Blood Urea Nitrogen 54 mg/dL (9-20); Calcium 8.3 mg/dL (8.4-10.2); Carbon Dioxide 19 mmol/L (22-30); Chloride 111 mmol/L (98-107); Estimated CRCL calculation 14 ml/min; Estimated Glomerular Filt Rate 12; Glucose 196 mg/dL (75-110); Potassium 3.9 mmol/L (3.4-5.0); Sodium 142 mmol/L (137-145)
[2020-11-24] MEDS: ATORVASTATIN 40 MG TABLET PO (09:00)
[2020-11-24] MEDS: POTASSIUM CHLORIDE 10 MEQ TABLET.ER 20 MEQ PO (09:00)
[2020-11-24] MEDS: amLODIPine BESYLATE 5 MG TABLET 10 MG PO (09:00)
[2020-11-24] MEDS: TAMSULOSIN HCL 0.4 MG CAPSULE PO (09:00)
[2020-11-24] MEDS: hydrALAZINE HCL 50 MG TABLET PO ×3 (09:00→17:46)
[2020-11-24] MEDS: APIXABAN 2.5 MG TABLET PO ×2 (09:01→20:28)
[2020-11-24] MEDS: METOPROLOL SUCCINATE EXT REL 50 MG TABCR PO (09:01)
[2020-11-24] MEDS: hydroCHLOROthiazide 25 MG TABLET PO (09:01)
[2020-11-24] MEDS: AMIODARONE HCL 200 MG TABLET BY MOUTH (09:01)
[2020-11-24] MEDS: FUROSEMIDE INJ 40 MG/4 ML VIAL IV PUSH ×2 (09:02→17:47)
[2020-11-24] MEDS: FLUTICASONE PROPIONATE 0.05% NA SPR 16 GM BTL (*BKC) 1 SPRAY NASAL (09:02)
[2020-11-24 19:49] LABS: SARS-CoV-2 RNA PCR Negative
--- NOTE | 2020-11-24 20:02 | PM.IMPN ---
Progress Note: A&P Assessment and Plan (1) Acute exacerbation of CHF (congestive heart failure): Qualifiers: Heart failure type: unspecified Qualified Code(s): I50.9 - Heart failure, unspecified Code(s): I50.9 - Heart failure, unspecified Status: Acute (2) Anemia: Qualifiers: Anemia type: due to chronic kidney disease Chronic kidney disease stage: stage 4 (severe) Qualified Code(s): N18.4 - Chronic kidney disease, stage 4 (severe); D63.1 - Anemia in chronic kidney disease Code(s): D64.9 - Anemia, unspecified Status: Acute (3) Pneumonia: Qualifiers: Laterality: unspecified laterality Lung location: unspecified part of lung Pneumonia type: due to unspecified organism Qualified Code(s): J18.9 - Pneumonia, unspecified organism Code(s): J18.9 - Pneumonia, unspecified organism Status: Acute (4) Hypothyroidism: Qualifiers: Hypothyroidism type: acquired Qualified Code(s): E03.9 - Hypothyroidism, unspecified Code(s): E03.9 - Hypothyroidism, unspecified Status: Acute (5) Acute hypoxemic respiratory failure: Code(s): J96.01 - Acute respiratory failure with hypoxia Status: Acute (6) Acute worsening of stage 4 chronic kidney disease: Code(s): N18.4 - Chronic kidney disease, stage 4 (severe) Status: Acute Additional Plan 11/23/20 Patient has acute exacerbation of his chronic diastolic congestive heart failure. The patient has been started on Lasix 40 mg IV b.i.d.. Will monitor urine output closely. Will check daily weights. The patient has mild worsening of his chronic kidney disease. There may be an acute component due to the patient's CHF exacerbation and hypoperfusion versus this being the patient's new baseline. Patient is having adequate urine output at this time. Will repeat BMP with a.m. labs. Postvoid residual was obtained to rule out obstructive uropathy and postvoid residual was normal. The patient does have nocturia which is suggestive of possible BPH. Will start the patient on Flomax in a.m.. CT scan did suggest possible pneumonia given patient is having brown sputum production will check sputum Gram stain and culture. Patient has been placed on empiric antibiotic therapy with Rocephin and azithromycin. Blood cultures are pending. The patient's hemoglobin is relatively stable. The ER had already ordered the patient a unit of blood transfusion. Patient may benefit from Procrit supplementation as outpatient. I will defer this decision to Nephrology as outpatient. The patient had recent diagnosis of hypothyroidism. His TSH is improving with medication. It is too soon to increase the patient's levothyroxine. Repeat TSH in 4 weeks before titrating dose. Patient is on chronic anticoagulation due to paroxysmal atrial fibrillation. Given his worsening renal function I will decrease his Eliquis dose to 2.5 mg b.i.d.. 11/24/20 pt doing ok, improving symptoms, diuresing as anticipated. requiring 3 L NC does not use home oxygen. Creatinine down trending GFR still below 15 will consult nephro in am if renal fxn fails to continue to improve. cont flomax, cont abx for perihilar PNA on CT imaging, current supportive care. Time Spent With Patient Time with patient: 25 - 35 minutes Subjective Date/time seen: 11/24/20 20:02 pt doing ok ruling out for coronavirus, in A/E of CHF,symptoms improving and feeling better on 3L of oxygen Exam Narrative: Exam Narrative: PHYSICAL EXAM: General: Obese, no acute distress HEENT: Mucous membranes are moist, poor dentition, pupils are equal and reactive, positive conjunctival pallor Respiratory: Decreased breath sounds at the bases, no increased work of breathing, 3L of O2 Cardiovascular: Regular rate, regular rhythm, no murmur Gastrointestinal: Obese, distended, nontender Skin: Generalized pallor, non jaundice Musculoskeletal: 1+ pitting edema to bilateral lower extrem
[2020-11-25] VITALS (13 sets, daily range): BP systolic 122–152; BP diastolic 58–107; PULSE 50–60; RESP 18–22; TEMP 35.6–36.4; O2SAT 95–97
[2020-11-25] MEDS: LEVOTHYROXINE SODIUM 50 MCG TABLET PO (05:40)
[2020-11-25] MEDS: FLUTICASONE PROPIONATE 0.05% NA SPR 16 GM BTL (*BKC) 1 SPRAY NASAL (08:39)
[2020-11-25] MEDS: TAMSULOSIN HCL 0.4 MG CAPSULE PO (08:39)
[2020-11-25] MEDS: POTASSIUM CHLORIDE 10 MEQ TABLET.ER 20 MEQ PO (08:39)
[2020-11-25] MEDS: hydrALAZINE HCL 50 MG TABLET PO (08:40)
[2020-11-25] MEDS: hydroCHLOROthiazide 25 MG TABLET PO (08:40)
[2020-11-25] MEDS: APIXABAN 2.5 MG TABLET PO ×2 (08:40→20:17)
[2020-11-25] MEDS: ATORVASTATIN 40 MG TABLET PO (08:40)
[2020-11-25] MEDS: amLODIPine BESYLATE 5 MG TABLET 10 MG PO (08:40)
[2020-11-25] MEDS: AMIODARONE HCL 200 MG TABLET BY MOUTH (08:41)
[2020-11-25] MEDS: METOPROLOL SUCCINATE EXT REL 50 MG TABCR PO (08:41)
[2020-11-25] MEDS: FUROSEMIDE INJ 40 MG/4 ML VIAL IV PUSH (08:42)
--- NOTE | 2020-11-25 08:49 | PM.IMPN ---
Progress Note: A&P Assessment and Plan (1) Acute exacerbation of CHF (congestive heart failure): Qualifiers: Heart failure type: unspecified Qualified Code(s): I50.9 - Heart failure, unspecified Code(s): I50.9 - Heart failure, unspecified Status: Acute (2) Anemia: Qualifiers: Anemia type: due to chronic kidney disease Chronic kidney disease stage: stage 4 (severe) Qualified Code(s): N18.4 - Chronic kidney disease, stage 4 (severe); D63.1 - Anemia in chronic kidney disease Code(s): D64.9 - Anemia, unspecified Status: Acute (3) Pneumonia: Qualifiers: Laterality: unspecified laterality Lung location: unspecified part of lung Pneumonia type: due to unspecified organism Qualified Code(s): J18.9 - Pneumonia, unspecified organism Code(s): J18.9 - Pneumonia, unspecified organism Status: Acute (4) Hypothyroidism: Qualifiers: Hypothyroidism type: acquired Qualified Code(s): E03.9 - Hypothyroidism, unspecified Code(s): E03.9 - Hypothyroidism, unspecified Status: Acute (5) Acute hypoxemic respiratory failure: Code(s): J96.01 - Acute respiratory failure with hypoxia Status: Acute (6) Acute worsening of stage 4 chronic kidney disease: Code(s): N18.4 - Chronic kidney disease, stage 4 (severe) Status: Acute Additional Plan 11/23/20 Patient has acute exacerbation of his chronic diastolic congestive heart failure. The patient has been started on Lasix 40 mg IV b.i.d.. Will monitor urine output closely. Will check daily weights. The patient has mild worsening of his chronic kidney disease. There may be an acute component due to the patient's CHF exacerbation and hypoperfusion versus this being the patient's new baseline. Patient is having adequate urine output at this time. Will repeat BMP with a.m. labs. Postvoid residual was obtained to rule out obstructive uropathy and postvoid residual was normal. The patient does have nocturia which is suggestive of possible BPH. Will start the patient on Flomax in a.m.. CT scan did suggest possible pneumonia given patient is having brown sputum production will check sputum Gram stain and culture. Patient has been placed on empiric antibiotic therapy with Rocephin and azithromycin. Blood cultures are pending. The patient's hemoglobin is relatively stable. The ER had already ordered the patient a unit of blood transfusion. Patient may benefit from Procrit supplementation as outpatient. I will defer this decision to Nephrology as outpatient. The patient had recent diagnosis of hypothyroidism. His TSH is improving with medication. It is too soon to increase the patient's levothyroxine. Repeat TSH in 4 weeks before titrating dose. Patient is on chronic anticoagulation due to paroxysmal atrial fibrillation. Given his worsening renal function I will decrease his Eliquis dose to 2.5 mg b.i.d.. 11/24/20 pt doing ok, improving symptoms, diuresing as anticipated. requiring 3 L NC does not use home oxygen. Creatinine down trending GFR still below 15 will consult nephro in am if renal fxn fails to continue to improve. cont flomax, cont abx for perihilar PNA on CT imaging, current supportive care. 11/25/20 BP labile on diuresis, TID hydralazine decreased, am labs show worsening renal function may be new baseline consult to Nephrology placed, recommendations appreciated. We will discontinue Lasix at this time and monitor. Possible DC in 24-48 hours Subjective Date/time seen: 11/25/20 08:49 Patient doing okay he is now comfortable on room air has been successfully weaned from oxygen. Overall states he is feeling better requesting to know when he might be able to go home. Patient advised will continue to monitor him discontinue his Lasix if his renal function starts to worsen and follow-up with nephrology for ongoing consideration of his STEPHAN on CKD 4. Exam Narrative: Exam Narrative: SHARON
[2020-11-25 09:09] LABS: Basophils Percent Auto 0.2 % (0.2-1.2); Eosinophils Percent Auto 0.1 % (0-4.4); Hematocrit 25.2 % (42.0-52.0); Hemoglobin 7.8 g/dL (14.0-18.0); Immature Granulocyte Absolute 0.07 K/mm3 (0.00-0.031); Immature Granulocyte Percent A 0.6 % (0-0.5); Lymphocytes Absolute Auto 0.66 K/mm3 (0.9-3.2); Lymphocytes Percent Auto 5.4 % (18.3-44.2); Mean Corpuscular Hemoglobin 27.5 pg (26-34); Mean Corpuscular Volume 88.7 fl (80-100); Mean Platelet Volume 9.1 fl (7.4-10.4); Monocytes Percent Auto 8.4 % (2.6-8.5); Neutrophils Absolute Auto 10.4 K/mm3 (1.3-6.7); Neutrophils Percent Auto 85.3 % (45.5-73.1); Platelet Count Result 215 k/mm3 (150-375); Red Blood Count 2.84 M/mm3 (4.6-6.20); White Blood Count 12.2 K/mm3 (4.5-10.0)
[2020-11-25 09:26] LABS: Anion Gap 12 mmol/L (8-16); Blood Urea Nitrogen 66 mg/dL (9-20); Calcium 8.1 mg/dL (8.4-10.2); Carbon Dioxide 20 mmol/L (22-30); Chloride 106 mmol/L (98-107); Estimated CRCL calculation 13 ml/min; Estimated Glomerular Filt Rate 11; Glucose 241 mg/dL (75-110); Magnesium 1.8 mg/dL (1.6-2.3); Potassium 3.6 mmol/L (3.4-5.0); Sodium 138 mmol/L (137-145)
--- NOTE | 2020-11-25 09:42 | PM.CNNEP ---
Assessment and Plan Assessment and plan (1) Acute worsening of stage 4 chronic kidney disease: Code(s): N18.4 - Chronic kidney disease, stage 4 (severe) Status: Acute Assessment and Plan: Elias has chronic kidney disease stage 4. This is likely due to diabetes and hypertension. He has a higher creatinine than usual. He also has volume overloaded. He was given diuretics to help the shortness of breath and his creatinine actually came down. Perhaps he had renal venous hypertension. (2) Acute hypoxemic respiratory failure: Code(s): J96.01 - Acute respiratory failure with hypoxia Status: Acute Assessment and Plan: Most likely related to volume overload. COVID is negative. This is improved after diuretic (3) Hypertension: Qualifiers: Hypertension type: essential hypertension Qualified Code(s): I10 - Essential (primary) hypertension Code(s): I10 - Essential (primary) hypertension Status: Acute Assessment and Plan: His blood pressure was high on admission and is improved with diuretics. (4) Hypothyroidism: Qualifiers: Hypothyroidism type: acquired Qualified Code(s): E03.9 - Hypothyroidism, unspecified Code(s): E03.9 - Hypothyroidism, unspecified Status: Acute Assessment and Plan: He is on levothyroxine. This is a relatively new diagnosis. (5) Anemia: Qualifiers: Anemia type: due to chronic kidney disease Chronic kidney disease stage: stage 4 (severe) Qualified Code(s): N18.4 - Chronic kidney disease, stage 4 (severe); D63.1 - Anemia in chronic kidney disease Code(s): D64.9 - Anemia, unspecified Status: Acute Assessment and Plan: Hemoglobin is 7.8. Will check iron levels. (6) Hypercholesteremia: Code(s): E78.00 - Pure hypercholesterolemia, unspecified Status: Acute Assessment and Plan: He is on atorvastatin (7) Mitral insufficiency: Qualifiers: Cardiac valve disease etiology: etiology unspecified Qualified Code(s): I34.0 - Nonrheumatic mitral (valve) insufficiency Code(s): I34.0 - Nonrheumatic mitral (valve) insufficiency Status: Acute Assessment and Plan: He sees cardiology (8) CAD (coronary artery disease): Qualifiers: Coronary Disease-Associated Artery/Lesion type: [place] artery [place] vs. transplanted heart: [place] heart Associated angina: without angina Qualified Code(s): I25.10 - Atherosclerotic heart disease of [place] coronary artery without angina pectoris Code(s): I25.10 - Atherosclerotic heart disease of [place] coronary artery without angina pectoris Status: Acute Assessment and Plan: No chest pain or shortness of Breath (9) Type 2 diabetes mellitus: Qualifiers: Diabetes mellitus customs entry writer insulin use: without senior living use Diabetes mellitus complication status: without complication Qualified Code(s): E11.9 - Type 2 diabetes mellitus without complications Code(s): E11.9 - Type 2 diabetes mellitus without complications Status: Acute Assessment and Plan: On Accu-Cheks and sliding-scale insulin History of Present Illness Reason for Consult Consult date: 11/25/20 Chief Complaint Chief complaint: CHF EXACERB, PNEUMONIA, ANEMIA History of Present Illness Narrative: Elias is a very pleasant 75-year-old gentleman who has multiple medical problems including chronic kidney disease with a baseline creatinine of around 3, coronary artery disease status post stents, moderate mitral regurgitation,Anemia of chronic disease,Arthritis, Diverticular hemorrhage, Hypercholesteremia, Hypertension, Hypothyroidism, Kidney stones (~2008), Paroxysmal atrial fibrillation, Peptic ulcer disease, Renal cell adenoma of left kidney (~07/2011), Stenosis, cervical spine, Type 2 diabetes mellitus. Patient has had a relatively high creatinine lately. In efforts to bring the crea
[2020-11-25 10:09] LABS: Iron 38 ug/dL (49-181)
[2020-11-25 10:18] LABS: Percent Iron Saturation 10 % (20-50)
[2020-11-25] MEDS: hydrALAZINE HCL 25 MG TABLET PO ×2 (13:11→17:14)
--- NOTE | 2020-11-25 18:20 | PC.NURSE ---
This patient, Elias Aguirre, was received from IMU on 11/25/20 at 1805. Patient/family oriented to unit policies and routines
--- NOTE | 2020-11-25 18:21 | PC.NURSE ---
This patient, Elias Aguirre, was transferred to [[id number] ] on 11/25/20 at 1808. Personal belongings sent with patient. Report given to [ Laina]. Appropriate documentation sent with patient.
[2020-11-26] VITALS (8 sets, daily range): BP systolic 113–155; BP diastolic 50–82; PULSE 48–85; RESP 12–18; TEMP 35.9–36.6; O2SAT 95–98
[2020-11-26] MEDS: LEVOTHYROXINE SODIUM 50 MCG TABLET PO (06:12)
[2020-11-26 06:17] LABS: Basophils Absolute Auto 0.1 K/mm3 (0.0-0.1); Basophils Percent Auto 0.6 % (0.2-1.2); Eosinophils Absolute Auto 0.1 K/mm3 (0-0.3); Eosinophils Percent Auto 1.5 % (0-4.4); Hematocrit 23.6 % (42.0-52.0); Hemoglobin 7.3 g/dL (14.0-18.0); Immature Granulocyte Absolute 0.04 K/mm3 (0.00-0.031); Immature Granulocyte Percent A 0.5 % (0-0.5); Lymphocytes Absolute Auto 0.87 K/mm3 (0.9-3.2); Lymphocytes Percent Auto 10.8 % (18.3-44.2); Mean Corpuscular HGB Conc 30.9 g/dl (32-36); Mean Corpuscular Hemoglobin 27.1 pg (26-34); Mean Corpuscular Volume 87.7 fl (80-100); Mean Platelet Volume 9.2 fl (7.4-10.4); Monocytes Absolute Auto 0.6 K/mm3 (0.1-0.6); Monocytes Percent Auto 7.8 % (2.6-8.5); Neutrophils Absolute Auto 6.4 K/mm3 (1.3-6.7); Neutrophils Percent Auto 78.8 % (45.5-73.1); Platelet Count Result 170 k/mm3 (150-375); Red Blood Count 2.69 M/mm3 (4.6-6.20); Red Cell Distribution Width 15.9 % (11.5-14.5); White Blood Count 8.1 K/mm3 (4.5-10.0)
[2020-11-26 06:40] LABS: Albumin Level 3.4 g/dL (3.5-5.1); Anion Gap 9 mmol/L (8-16); Blood Urea Nitrogen 73 mg/dL (9-20); Calcium 7.8 mg/dL (8.4-10.2); Carbon Dioxide 22 mmol/L (22-30); Chloride 106 mmol/L (98-107); Estimated CRCL calculation 13 ml/min; Estimated Glomerular Filt Rate 11; Glucose 127 mg/dL (75-110); Magnesium 1.9 mg/dL (1.6-2.3); Phosphorus 5.6 mg/dL (2.5-4.5); Potassium 3.4 mmol/L (3.4-5.0); Sodium 137 mmol/L (137-145)
--- NOTE | 2020-11-26 08:14 | PM.PNNEP ---
Progress Note: A&P Assessment and Plan (1) Acute worsening of stage 4 chronic kidney disease: Code(s): N18.4 - Chronic kidney disease, stage 4 (severe) Status: Acute Assessment and Plan: Elias has chronic kidney disease stage 4. This is likely due to diabetes and hypertension. his baseline is around 4-4.3. He has STEPHAN. This could be progression of kidney disease. This could be some element of renal venous hypertension. He was given diuretics to help the shortness of breath and his creatinine Improved at 1st but now is back up again. He is not short of breath is off oxygen and his swelling is under pretty good control so I think were in a good place right now. He was on Lasix 40 IV twice a day and hydrochlorothiazide. The Lasix was discontinued. Intake/output very negative yesterday. will watch the patient off diuretics for the next day or 2. Restart oral Lasix when urine output decreases. Hopefully renal function will improve some. We discussed dialysis at length. He is not ready for dialysis yet but probably will be soon. He is making an appointment with dialysis education. I think he would do well with peritoneal dialysis however he needs to learn more about everything so he can make an informed decision. We discussed hemodialysis, home hemodialysis, and peritoneal dialysis. We discussed pluses and minuses of all 3 modalities. He will get more information with pictures during his class. He had questions which I answered. 25 minutes were spent in discussions with patient regarding all of this (2) Acute hypoxemic respiratory failure: Code(s): J96.01 - Acute respiratory failure with hypoxia Status: Acute Assessment and Plan: Most likely related to volume overload. COVID is negative. This is improved after diuretic (3) Hypertension: Qualifiers: Hypertension type: essential hypertension Qualified Code(s): I10 - Essential (primary) hypertension Code(s): I10 - Essential (primary) hypertension Status: Acute Assessment and Plan: His blood pressure was high on admission and is improved with diuretics. At home his meds were amlodipine , metoprolol, and hydrochlorothiazide. eventually he will probably be off hydrochlorothiazide and on Lasix. His blood pressure still a bit high at times. So I am going to change him to carvedilol to get a little more antihypertensive affect but still have a beta-manny. Eventually I would like him off the amlodipine as well because of the swelling. (4) Hypothyroidism: Qualifiers: Hypothyroidism type: acquired Qualified Code(s): E03.9 - Hypothyroidism, unspecified Code(s): E03.9 - Hypothyroidism, unspecified Status: Acute Assessment and Plan: He is on levothyroxine. This is a relatively new diagnosis. (5) Anemia: Qualifiers: Anemia type: due to chronic kidney disease Chronic kidney disease stage: stage 4 (severe) Qualified Code(s): N18.4 - Chronic kidney disease, stage 4 (severe); D63.1 - Anemia in chronic kidney disease Code(s): D64.9 - Anemia, unspecified Status: Acute Assessment and Plan: Hemoglobin is 7.8. Will check iron levels. (6) Hypercholesteremia: Code(s): E78.00 - Pure hypercholesterolemia, unspecified Status: Acute Assessment and Plan: He is on atorvastatin (7) Mitral insufficiency: Qualifiers: Cardiac valve disease etiology: etiology unspecified Qualified Code(s): I34.0 - Nonrheumatic mitral (valve) insufficiency Code(s): I34.0 - Nonrheumatic mitral (valve) insufficiency Status: Acute Assessment and Plan: He sees cardiology His volume status seems more compensated. (8) CAD (coronary artery disease): Qualifiers: Coronary Disease-Associated Artery/Lesion type: [place] artery [place] vs. transplanted heart: [place] heart Asso
[2020-11-26] MEDS: hydrALAZINE HCL 25 MG TABLET PO ×3 (09:46→18:09)
[2020-11-26] MEDS: POTASSIUM CHLORIDE 10 MEQ TABLET.ER 20 MEQ PO (09:46)
[2020-11-26] MEDS: ATORVASTATIN 40 MG TABLET PO (09:46)
[2020-11-26] MEDS: hydroCHLOROthiazide 25 MG TABLET PO (09:46)
[2020-11-26] MEDS: FLUTICASONE PROPIONATE 0.05% NA SPR 16 GM BTL (*BKC) 1 SPRAY NASAL (09:46)
[2020-11-26] MEDS: TAMSULOSIN HCL 0.4 MG CAPSULE PO (09:47)
[2020-11-26] MEDS: amLODIPine BESYLATE 5 MG TABLET 10 MG PO (09:47)
[2020-11-26] MEDS: AMIODARONE HCL 200 MG TABLET BY MOUTH (09:47)
[2020-11-26] MEDS: APIXABAN 2.5 MG TABLET PO ×2 (09:47→20:10)
[2020-11-26] MEDS: carvediloL 12.5 MG TABLET PO (10:02)
--- NOTE | 2020-11-26 15:17 | ECG_ITS ---
Measurements Intervals [place] Rate: 47 P: [place]: 0 QRS: -34 QRSD: 121 T: 43 QT: 506 QTc: 450 Interpretive Statements ECTOPIC ARTIAL BRADYCARDIA LEFT AXIS DEVIATION INTRAVENTRICULAR CONDUCTION DELAY DELAYED PRECORDIAL R/S TRANSITION BASELINE ARTIFACT- I, III, AVL, V3 ABNORMAL ECG Electronically Signed On 11-26-2020 16:15:13 CDT by Vikram Ochoa D.O.
--- NOTE | 2020-11-26 15:22 | PC.NURSE ---
Patient heart rate 51 after walking in hallway. Asymptomatic.
[2020-11-26 16:00] LABS: Troponin I 0.014 ng/mL (0.000-0.034)
--- NOTE | 2020-11-26 18:44 | PM.IMPN ---
Progress Note: A&P Assessment and Plan (1) Acute exacerbation of CHF (congestive heart failure): Qualifiers: Heart failure type: unspecified Qualified Code(s): I50.9 - Heart failure, unspecified Code(s): I50.9 - Heart failure, unspecified Status: Acute (2) Anemia: Qualifiers: Anemia type: due to chronic kidney disease Chronic kidney disease stage: stage 4 (severe) Qualified Code(s): N18.4 - Chronic kidney disease, stage 4 (severe); D63.1 - Anemia in chronic kidney disease Code(s): D64.9 - Anemia, unspecified Status: Acute (3) Pneumonia: Qualifiers: Laterality: unspecified laterality Lung location: unspecified part of lung Pneumonia type: due to unspecified organism Qualified Code(s): J18.9 - Pneumonia, unspecified organism Code(s): J18.9 - Pneumonia, unspecified organism Status: Acute (4) Hypothyroidism: Qualifiers: Hypothyroidism type: acquired Qualified Code(s): E03.9 - Hypothyroidism, unspecified Code(s): E03.9 - Hypothyroidism, unspecified Status: Acute (5) Acute hypoxemic respiratory failure: Code(s): J96.01 - Acute respiratory failure with hypoxia Status: Acute (6) Acute worsening of stage 4 chronic kidney disease: Code(s): N18.4 - Chronic kidney disease, stage 4 (severe) Status: Acute Additional Plan 11/23/20 Patient has acute exacerbation of his chronic diastolic congestive heart failure. The patient has been started on Lasix 40 mg IV b.i.d.. Will monitor urine output closely. Will check daily weights. The patient has mild worsening of his chronic kidney disease. There may be an acute component due to the patient's CHF exacerbation and hypoperfusion versus this being the patient's new baseline. Patient is having adequate urine output at this time. Will repeat BMP with a.m. labs. Postvoid residual was obtained to rule out obstructive uropathy and postvoid residual was normal. The patient does have nocturia which is suggestive of possible BPH. Will start the patient on Flomax in a.m.. CT scan did suggest possible pneumonia given patient is having brown sputum production will check sputum Gram stain and culture. Patient has been placed on empiric antibiotic therapy with Rocephin and azithromycin. Blood cultures are pending. The patient's hemoglobin is relatively stable. The ER had already ordered the patient a unit of blood transfusion. Patient may benefit from Procrit supplementation as outpatient. I will defer this decision to Nephrology as outpatient. The patient had recent diagnosis of hypothyroidism. His TSH is improving with medication. It is too soon to increase the patient's levothyroxine. Repeat TSH in 4 weeks before titrating dose. Patient is on chronic anticoagulation due to paroxysmal atrial fibrillation. Given his worsening renal function I will decrease his Eliquis dose to 2.5 mg b.i.d.. 11/24/20 pt doing ok, improving symptoms, diuresing as anticipated. requiring 3 L NC does not use home oxygen. Creatinine down trending GFR still below 15 will consult nephro in am if renal fxn fails to continue to improve. cont flomax, cont abx for perihilar PNA on CT imaging, current supportive care. 11/25/20 BP labile on diuresis, TID hydralazine decreased, am labs show worsening renal function may be new baseline consult to Nephrology placed, recommendations appreciated. We will discontinue Lasix at this time and monitor. Possible DC in 24-48 hours 11/26/20 Beta-blockers changed. 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 p.r.n. p.o. Hydralazine ordered for coverage. Subjective Date/time seen: 11/26/20 18:44 Patient reporting dizziness and noted to have bradycardia. Beta-blockers changed. Hydrochlorothiazide increased from 25-50 after discussion with egg processing supervisor. Patient noted to be on hydralazine 25 mg t.i.d. increased to 50mg tid until am when hydro
[2020-11-27] MEDS: LEVOTHYROXINE SODIUM 50 MCG TABLET PO (05:47)
[2020-11-27 05:59] LABS: Hematocrit 23.8 % (42.0-52.0); Hemoglobin 7.4 g/dL (14.0-18.0); Mean Corpuscular HGB Conc 31.1 g/dl (32-36); Mean Corpuscular Hemoglobin 27.4 pg (26-34); Mean Corpuscular Volume 88.1 fl (80-100); Mean Platelet Volume 9.3 fl (7.4-10.4); Platelet Count Result 178 k/mm3 (150-375); Red Cell Distribution Width 15.7 % (11.5-14.5); White Blood Count 7.8 K/mm3 (4.5-10.0)
[2020-11-27 06:10] LABS: Albumin Level 3.4 g/dL (3.5-5.1); Anion Gap 9 mmol/L (8-16); Blood Urea Nitrogen 71 mg/dL (9-20); Calcium 7.2 mg/dL (8.4-10.2); Carbon Dioxide 23 mmol/L (22-30); Chloride 106 mmol/L (98-107); Estimated CRCL calculation 13 ml/min; Estimated Glomerular Filt Rate 11; Glucose 109 mg/dL (75-110); Phosphorus 5.7 mg/dL (2.5-4.5); Potassium 3.5 mmol/L (3.4-5.0); Sodium 138 mmol/L (137-145)
[2020-11-27 06:29] VITALS: BP 144/70; PULSE 52; RESP 18; TEMP 36.2; O2SAT 94
[2020-11-27] MEDS: POTASSIUM CHLORIDE 10 MEQ TABLET.ER 20 MEQ PO (08:32)
[2020-11-27] MEDS: FLUTICASONE PROPIONATE 0.05% NA SPR 16 GM BTL (*BKC) 1 SPRAY NASAL (08:32)
[2020-11-27] MEDS: TAMSULOSIN HCL 0.4 MG CAPSULE PO (08:32)
[2020-11-27] MEDS: ATORVASTATIN 40 MG TABLET PO (08:32)
[2020-11-27] MEDS: APIXABAN 2.5 MG TABLET PO ×2 (08:32→20:23)
[2020-11-27 09:11] VITALS: PULSE 48
[2020-11-27] MEDS: AMIODARONE HCL 200 MG TABLET BY MOUTH (09:11)
[2020-11-27] MEDS: METOPROLOL SUCCINATE EXT REL 50 MG TABCR PO (09:11)
[2020-11-27] MEDS: hydrALAZINE HCL 25 MG TABLET PO ×2 (13:33→17:48)
[2020-11-27 13:42] VITALS: BP 136/60; PULSE 54; RESP 16; TEMP 36.4; O2SAT 92
--- NOTE | 2020-11-27 15:32 | PM.IMPN ---
Progress Note: A&P Assessment and Plan (1) Acute exacerbation of CHF (congestive heart failure): Qualifiers: Heart failure type: unspecified Qualified Code(s): I50.9 - Heart failure, unspecified Code(s): I50.9 - Heart failure, unspecified Status: Acute Assessment and Plan: 11/27/20 15:32 patient is 75-year-old male with history with history of chronic kidney disease presented with a complaint of shortness of breath worse with exertion was not able to few stable without getting short winded and had gained 12 lb in 1 week, patient was suspected we congestive heart failure his last echo in 2019 showed mild systolic dysfunction with ejection fraction of 55% diastolic dysfunction with grade 2, will order cardiac echo further evaluate, unable to diurese the pain as patient creatinine is rising seen by Nephrology added hydralazine as well as hydrochlorothiazide, patient states is feeling little better compared to when he arrived able to ambulate somewhat will continue to monitor (2) Anemia: Qualifiers: Anemia type: due to chronic kidney disease Chronic kidney disease stage: stage 4 (severe) Qualified Code(s): N18.4 - Chronic kidney disease, stage 4 (severe); D63.1 - Anemia in chronic kidney disease Code(s): D64.9 - Anemia, unspecified Status: Acute (3) Pneumonia: Qualifiers: Laterality: unspecified laterality Lung location: unspecified part of lung Pneumonia type: due to unspecified organism Qualified Code(s): J18.9 - Pneumonia, unspecified organism Code(s): J18.9 - Pneumonia, unspecified organism Status: Acute (4) Hypothyroidism: Qualifiers: Hypothyroidism type: acquired Qualified Code(s): E03.9 - Hypothyroidism, unspecified Code(s): E03.9 - Hypothyroidism, unspecified Status: Acute (5) Acute hypoxemic respiratory failure: Code(s): J96.01 - Acute respiratory failure with hypoxia Status: Acute (6) Acute worsening of stage 4 chronic kidney disease: Code(s): N18.4 - Chronic kidney disease, stage 4 (severe) Status: Acute Additional Plan 11/23/20 Patient has acute exacerbation of his chronic diastolic congestive heart failure. The patient has been started on Lasix 40 mg IV b.i.d.. Will monitor urine output closely. Will check daily weights. The patient has mild worsening of his chronic kidney disease. There may be an acute component due to the patient's CHF exacerbation and hypoperfusion versus this being the patient's new baseline. Patient is having adequate urine output at this time. Will repeat BMP with a.m. labs. Postvoid residual was obtained to rule out obstructive uropathy and postvoid residual was normal. The patient does have nocturia which is suggestive of possible BPH. Will start the patient on Flomax in a.m.. CT scan did suggest possible pneumonia given patient is having brown sputum production will check sputum Gram stain and culture. Patient has been placed on empiric antibiotic therapy with Rocephin and azithromycin. Blood cultures are pending. The patient's hemoglobin is relatively stable. The ER had already ordered the patient a unit of blood transfusion. Patient may benefit from Procrit supplementation as outpatient. I will defer this decision to Nephrology as outpatient. The patient had recent diagnosis of hypothyroidism. His TSH is improving with medication. It is too soon to increase the patient's levothyroxine. Repeat TSH in 4 weeks before titrating dose. Patient is on chronic anticoagulation due to paroxysmal atrial fibrillation. Given his worsening renal function I will decrease his Eliquis dose to 2.5 mg b.i.d.. 11/24/20 pt doing ok, improving symptoms, diuresing as anticipated. requiring 3 L NC does not use home oxygen. Creatinine down trending GFR still below 15 will consult nephro in am if renal fxn fails to continue to improve. cont flomax, cont abx for perihilar PNA on CT imaging,
--- NOTE | 2020-11-27 15:50 | P.PNNP_ITS ---
Progress Note: A&P Assessment and Plan (1) Acute worsening of stage 4 chronic kidney disease: Code(s): N18.4 - Chronic kidney disease, stage 4 (severe) Status: Acute Assessment and Plan: * baseline creatinine had been running ~ 4.0 - 4.3mg/dl * due to combo of HTN, DM, and age * higher creatinine due to STEPHAN versus progression of disease(?) * off diuretics at this time and still has negative I/Os Dr. Sevilla has already had a long discussion with patient regarding his kidney disease as documeted in his last progress note -- He is not ready for dialysis yet but probably will be soon. He is making an appointment with dialysis education. I think he would do well with peritoneal dialysis however he needs t o learn more about everything so he can make an informed decision. We discussed hemodialysis, home hemodialysis, and peritoneal dialysis. We discussed pluses and minuses of all 3 modalities. He will get more information with pictures during his class. He had questions which I answered (2) Acute hypoxemic respiratory failure: Code(s): J96.01 - Acute respiratory failure with hypoxia Status: Acute Assessment and Plan: * secondary to volume overload * doing better s/p IV diuretic therapy * COVID is negative * recheck CXR in AM (3) Hypertension: Qualifiers: Hypertension type: essential hypertension Qualified Code(s): I10 - Essential (primary) hypertension Code(s): I10 - Essential (primary) hypertension Status: Acute Assessment and Plan: * doing reasonably well at this time * blood pressure was high on admission and is improved s/p diuretics/diuresis * will likely resume oral lasix on discharge * follow trend of hemodynamics (4) Hypothyroidism: Qualifiers: Hypothyroidism type: acquired Qualified Code(s): E03.9 - Hypothyroidism, unspecified Code(s): E03.9 - Hypothyroidism, unspecified Status: Acute Assessment and Plan: * started on on levothyroxine * new diagnosis (5) Anemia: Qualifiers: Anemia type: due to chronic kidney disease Chronic kidney disease stage: stage 4 (severe) Qualified Code(s): N18.4 - Chronic kidney disease, stage 4 (severe); D63.1 - Anemia in chronic kidney disease Code(s): D64.9 - Anemia, unspecified Status: Acute Assessment and Plan: * likely due to STEPHAN, CKD, and acute illness * evidence of iron deficiency by anemia studies * dose with IV venofer and Epogen * follow trend of H/H (6) Type 2 diabetes mellitus: Qualifiers: Diabetes mellitus complication status: without complication Diabetes mellitus correction insulin use: without correction use Qualified Code(s): E11.9 - Type 2 diabetes mellitus without complications Code(s): E11.9 - Type 2 diabetes mellitus without complications Status: Acute Assessment and Plan: * follow Accu-Cheks * on sliding-scale insulin Will continue to follow. Subjective Date/time seen: 11/27/20 15:50 Appears to be doing quite well at the time of my visit; sitting up in chair and in no apparent distress; breathing as well as swelling are stable if not better at this time. Exam Narrative: Exam Narrative: General: WD/WN male in NAD Heart: normal S1 and S2; no rub Lungs: clear to auscultation Abdomen: soft, nontender, nondistended, positive bowel sounds Extremities: no cyanosis or clubbing; trace - 1+ edema Skin: warm and dry Objective Data Vital Signs Vital Signs:
--- NOTE | 2020-11-27 15:50 | PM.PNNEP ---
Progress Note: A&P Assessment and Plan (1) Acute worsening of stage 4 chronic kidney disease: Code(s): N18.4 - Chronic kidney disease, stage 4 (severe) Status: Acute Assessment and Plan: baseline creatinine had been running ~ 4.0 - 4.3mg/dl due to combo of HTN, DM, and age higher creatinine due to STEPHAN versus progression of disease(?) off diuretics at this time and still has negative I/Os Dr. Sevilla has already had a long discussion with patient regarding his kidney disease as documeted in his last progress note -- He is not ready for dialysis yet but probably will be soon. He is making an appointment with dialysis education. I think he would do well with peritoneal dialysis however he needs to learn more about everything so he can make an informed decision. We discussed hemodialysis, home hemodialysis, and peritoneal dialysis. We discussed pluses and minuses of all 3 modalities. He will get more information with pictures during his class. He had questions which I answered (2) Acute hypoxemic respiratory failure: Code(s): J96.01 - Acute respiratory failure with hypoxia Status: Acute Assessment and Plan: secondary to volume overload doing better s/p IV diuretic therapy COVID is negative recheck CXR in AM (3) Hypertension: Qualifiers: Hypertension type: essential hypertension Qualified Code(s): I10 - Essential (primary) hypertension Code(s): I10 - Essential (primary) hypertension Status: Acute Assessment and Plan: doing reasonably well at this time blood pressure was high on admission and is improved s/p diuretics/diuresis will likely resume oral lasix on discharge follow trend of hemodynamics (4) Hypothyroidism: Qualifiers: Hypothyroidism type: acquired Qualified Code(s): E03.9 - Hypothyroidism, unspecified Code(s): E03.9 - Hypothyroidism, unspecified Status: Acute Assessment and Plan: started on on levothyroxine new diagnosis (5) Anemia: Qualifiers: Anemia type: due to chronic kidney disease Chronic kidney disease stage: stage 4 (severe) Qualified Code(s): N18.4 - Chronic kidney disease, stage 4 (severe); D63.1 - Anemia in chronic kidney disease Code(s): D64.9 - Anemia, unspecified Status: Acute Assessment and Plan: likely due to STEPHAN, CKD, and acute illness evidence of iron deficiency by anemia studies dose with IV venofer and Epogen follow trend of H/H (6) Type 2 diabetes mellitus: Qualifiers: Diabetes mellitus complication status: without complication Diabetes mellitus correction insulin use: without rn long term care use Qualified Code(s): E11.9 - Type 2 diabetes mellitus without complications Code(s): E11.9 - Type 2 diabetes mellitus without complications Status: Acute Assessment and Plan: follow Accu-Cheks on sliding-scale insulin Will continue to follow. Subjective Date/time seen: 11/27/20 15:50 Appears to be doing quite well at the time of my visit; sitting up in chair and in no apparent distress; breathing as well as swelling are stable if not better at this time. Exam Narrative: Exam Narrative: General: WD/WN male in NAD Heart: normal S1 and S2; no rub Lungs: clear to auscultation Abdomen: soft, nontender, nondistended, positive bowel sounds Extremities: no cyanosis or clubbing; trace - 1+ edema Skin: warm and dry Objective Data Vital Signs Vital Signs: Vital Signs Temp Pulse Resp BP Pulse Ox 11/27/20 13:42 36.4 C 54 L 16 136/60 92 11/27/20 09:11 48 L 11/27/20 06:29 36.2 C L 52 L 18 144/70 H 94 11/26/20 21:20 36.6 C 53 L 16 115/50 L 96 Intake/Output Intake/Output: Intake & Output 11/24/20 11/25/20 11/26/20 11/27/20 23:59 23:59 23:59 23:59 Intake Total 2029 2340 1570 480 Output Total 3390 4000 1300 1300 Balance -1360 -1660 270 -820 Meds/Results Medicati
[2020-11-27 19:18] VITALS: BP 129/56; PULSE 50; RESP 18; TEMP 36.2; O2SAT 98
--- NOTE | 2020-11-28 | ECHO_ITS ---
Patient Info Name: Elias Aguirre Age: 75 years : 1945 Gender: Male Ht: 66 in Wt: 224 lbs BSA: 2.22 m2 HR: 54 bpm BP: 133 / 56 mmHg Technical Quality: Good Exam Date: 11/28/2020 9:19 AM Exam Location: [facility] Patient Status: Inpatient Admit Date: 11/23/2020 Staff Ordering Physician: Blanche Arroyo MD Lithograph Press Operator Tinware: Lamont Brennan RDCS, RT Attending Provider: Tita Feldman DO Exam Type: CA echo doppler color flow Study Info Indications I34.0 - Nonrheumatic mitral (valve) insufficiency Complete two-dimensional, color flow and Doppler transthoracic echocardiogram is performed. Strain analysis performed. Summary 1. Complete two-dimensional, color flow and Doppler transthoracic echocardiogram is performed. 2. Mild LV enlargement, moderate LVH; low normal LV systolic function, ejection fraction 50-55%. Indeterminate diastolic function. G LS-17%. Moderate left atrial enlargement. Mitral valve appears thickened with mitral annular calcification, moderate eccentric mitral regurgitation. Aortic valve mildly calcified, mild aortic stenosis, calculated MAJO 2.1 cm2. Mild TR, moderate pulmonary hypertension, RVSP 55 mmHg. Left Ventricle Left ventricular chamber dimension is mildly enlarged. Left ventricular systolic function is normal, estimated at 50-55%. There is moderately increased left ventricular wall thickness. Right Ventricle Right ventricular chamber dimension is normal. Right ventricular systolic function is normal. Left Atria Left atrial chamber dimension is moderately enlarged. Right Atria Right atrial chamber dimension is normal. Aortic Valve There is mild aortic valve sclerosis. There is no aortic valve stenosis. There is mild aortic valve calcification. Pulmonic Valve The pulmonic valve is normal. There is mild pulmonic regurgitation. Mitral Valve The mitral valve has thickened leaflets. There is no mitral valve stenosis. There is moderate mitral valve regurgitation. The mitral valve annulus is mildly calcified. Tricuspid Valve The tricuspid valve leaflets are normal. There is mild tricuspid valve regurgitation. Moderate pulmonary hypertension, estimated pulmonary arterial systolic pressure is 55 mmHg. Inferior Vena Cava Normal inferior vena cava with no collapse upon inspiration consistent with elevated right atrial pressure, 10 mmHg. Aorta The aortic root size at the sinus of Valsalva is normal. Left Ventricular Outflow Tract Name Value Normal LVOT 2D LVOT Diameter 2.1 cm LVOT Doppler LVOT Peak Velocity 93 cm/s LVOT Peak Gradient 3 mmHg LVOT Mean Gradient 2 mmHg LVOT VTI 21 cm LVOT VTI/AV VTI Ratio 0.6 LVOT Stroke Volume 78 ml LVOT CO 4.2 l/min LVOT CI 1.9 l/min/m2 Mitral Valve Name Value Normal ----
[2020-11-28 06:14] VITALS: BP 133/56; PULSE 55; RESP 16; TEMP 36.4; O2SAT 97
[2020-11-28] MEDS: LEVOTHYROXINE SODIUM 50 MCG TABLET PO (06:15)
[2020-11-28 08:12] LABS: Albumin Level 3.8 g/dL (3.5-5.1); Anion Gap 12 mmol/L (8-16); Blood Urea Nitrogen 73 mg/dL (9-20); Calcium 7.9 mg/dL (8.4-10.2); Carbon Dioxide 22 mmol/L (22-30); Chloride 106 mmol/L (98-107); Estimated CRCL calculation 14 ml/min; Estimated Glomerular Filt Rate 12; Glucose 181 mg/dL (75-110); Potassium 3.5 mmol/L (3.4-5.0); Sodium 140 mmol/L (137-145)
[2020-11-28] MEDS: FLUTICASONE PROPIONATE 0.05% NA SPR 16 GM BTL (*BKC) 1 SPRAY NASAL (08:41)
[2020-11-28] MEDS: TAMSULOSIN HCL 0.4 MG CAPSULE PO (08:42)
[2020-11-28] MEDS: POTASSIUM CHLORIDE 10 MEQ TABLET.ER 20 MEQ PO (08:42)
[2020-11-28] MEDS: hydroCHLOROthiazide 25 MG TABLET PO (08:42)
[2020-11-28 08:43] VITALS: PULSE 51
[2020-11-28] MEDS: APIXABAN 2.5 MG TABLET PO (08:43)
[2020-11-28] MEDS: ATORVASTATIN 40 MG TABLET PO (08:43)
[2020-11-28] MEDS: METOPROLOL SUCCINATE EXT REL 50 MG TABCR PO (08:43)
[2020-11-28] MEDS: amLODIPine BESYLATE 5 MG TABLET 10 MG PO (08:43)
[2020-11-28] MEDS: AMIODARONE HCL 200 MG TABLET BY MOUTH (08:43)
[2020-11-28] MEDS: hydrALAZINE HCL 25 MG TABLET PO ×2 (08:43→12:38)
--- NOTE | 2020-11-28 09:45 | P.PNNP_ITS ---
Progress Note: A&P Assessment and Plan (1) Acute worsening of stage 4 chronic kidney disease: Code(s): N18.4 - Chronic kidney disease, stage 4 (severe) Status: Acute Assessment and Plan: * baseline creatinine had been running ~ 4.0 - 4.3mg/dl * due to combo of HTN, DM, and age * higher creatinine due to STEPHAN versus progression of disease(?) * off diuretics at this time and still has negative I/Os * would start lasix 40mg qday on discharge Dr. Sevilla has already had a long discussion with patient regarding his kidney disease as documeted in his last progress note -- He is not ready for dialysis yet but probably will be soon. He is making an appointment with dialysis education. I think he would do well with peritoneal dialysis however he needs to learn more about everything so he can make an informed decision. We discussed hemodialysis, home hemodialysis, and peritoneal dialysis. We discussed pluses and minuses of all 3 modalities. He will get more information with pictures during his class. He had questions which I answered (2) Acute hypoxemic respiratory failure: Code(s): J96.01 - Acute respiratory failure with hypoxia Status: Acute Assessment and Plan: * secondary to volume overload * doing better s/p IV diuretic therapy * COVID is negative * recheck CXR in AM (3) Hypertension: Qualifiers: Hypertension type: essential hypertension Qualified Code(s): I10 - Essential (primary) hypertension Code(s): I10 - Essential (primary) hypertension Status: Acute Assessment and Plan: * doing reasonably well at this time * blood pressure was high on admission and is improved s/p diuretics/diuresis * will likely resume oral lasix on discharge * follow trend of hemodynamics (4) Hypothyroidism: Qualifiers: Hypothyroidism type: acquired Qualified Code(s): E03.9 - Hypothyroidism, unspecified Code(s): E03.9 - Hypothyroidism, unspecified Status: Acute Assessment and Plan: * started on on levothyroxine * new diagnosis (5) Anemia: Qualifiers: Anemia type: due to chronic kidney disease Chronic kidney disease stage: stage 4 (severe) Qualified Code(s): N18.4 - Chronic kidney disease, stage 4 (severe); D63.1 - Anemia in chronic kidney disease Code(s): D64.9 - Anemia, unspecified Status: Acute Assessment and Plan: * likely due to STEPHAN, CKD, and acute illness * evidence of iron deficiency by anemia studies * dose with IV venofer and Epogen * follow trend of H/H (6) Type 2 diabetes mellitus: Qualifiers: Diabetes mellitus complication status: without complication 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 Sevilla in clinic as scheduled and will arrange dialysis education. Subjective Date/time seen: 11/28/20 09:45 Appears to be doing reasonably well; no apparent distress voiced at the time of my visit; anxious for discharge. Exam Narrative: Exam Narrative: General: WD/WN male in NAD Heart: normal S1 and S2; no rub Lungs: clear to auscultation Abdomen: soft, nontender, nondistended, positive bowel sounds
--- NOTE | 2020-11-28 09:45 | PM.PNNEP ---
Progress Note: A&P Assessment and Plan (1) Acute worsening of stage 4 chronic kidney disease: Code(s): N18.4 - Chronic kidney disease, stage 4 (severe) Status: Acute Assessment and Plan: baseline creatinine had been running ~ 4.0 - 4.3mg/dl due to combo of HTN, DM, and age higher creatinine due to STEPHAN versus progression of disease(?) off diuretics at this time and still has negative I/Os would start lasix 40mg qday on discharge Dr. Sevilla has already had a long discussion with patient regarding his kidney disease as documeted in his last progress note -- He is not ready for dialysis yet but probably will be soon. He is making an appointment with dialysis education. I think he would do well with peritoneal dialysis however he needs to learn more about everything so he can make an informed decision. We discussed hemodialysis, home hemodialysis, and peritoneal dialysis. We discussed pluses and minuses of all 3 modalities. He will get more information with pictures during his class. He had questions which I answered (2) Acute hypoxemic respiratory failure: Code(s): J96.01 - Acute respiratory failure with hypoxia Status: Acute Assessment and Plan: secondary to volume overload doing better s/p IV diuretic therapy COVID is negative recheck CXR in AM (3) Hypertension: Qualifiers: Hypertension type: essential hypertension Qualified Code(s): I10 - Essential (primary) hypertension Code(s): I10 - Essential (primary) hypertension Status: Acute Assessment and Plan: doing reasonably well at this time blood pressure was high on admission and is improved s/p diuretics/diuresis will likely resume oral lasix on discharge follow trend of hemodynamics (4) Hypothyroidism: Qualifiers: Hypothyroidism type: acquired Qualified Code(s): E03.9 - Hypothyroidism, unspecified Code(s): E03.9 - Hypothyroidism, unspecified Status: Acute Assessment and Plan: started on on levothyroxine new diagnosis (5) Anemia: Qualifiers: Anemia type: due to chronic kidney disease Chronic kidney disease stage: stage 4 (severe) Qualified Code(s): N18.4 - Chronic kidney disease, stage 4 (severe); D63.1 - Anemia in chronic kidney disease Code(s): D64.9 - Anemia, unspecified Status: Acute Assessment and Plan: likely due to STEPHAN, CKD, and acute illness evidence of iron deficiency by anemia studies dose with IV venofer and Epogen follow trend of H/H (6) Type 2 diabetes mellitus: Qualifiers: Diabetes mellitus complication status: without complication Diabetes mellitus penitentiary insulin use: without intermediate manager use Qualified Code(s): E11.9 - Type 2 diabetes mellitus without complications Code(s): E11.9 - Type 2 diabetes mellitus without complications Status: Acute Assessment and Plan: follow Accu-Cheks on sliding-scale insulin Will continue to follow -- not opposed to discharge today from renal perspective if otherwise medically stable; he can follow-up with Dr. Sevilla in clinic as scheduled and will arrange dialysis education. Subjective Date/time seen: 11/28/20 09:45 Appears to be doing reasonably well; no apparent distress voiced at the time of my visit; anxious for discharge. Exam Narrative: Exam Narrative: General: WD/WN male in NAD Heart: normal S1 and S2; no rub Lungs: clear to auscultation Abdomen: soft, nontender, nondistended, positive bowel sounds Extremities: no cyanosis or clubbing; trace - 1+ edema Skin: warm and intact Objective Data Vital Signs Vital Signs: Vital Signs Temp Pulse Resp BP Pulse Ox 11/28/20 08:43 51 L 11/28/20 06:14 36.4 C 55 L 16 133/56 L 97 11/27/20 19:18 36.2 C L 50 L 18 129/56 L 98 11/27/20 13:42 36.4 C 54 L 16 136/60 92 Intake/Output Intake/Output: Intake & Output 11/25/20 11/26/20 04
[2020-11-28 14:09] VITALS: BP 130/60; PULSE 49; RESP 16; TEMP 36.2; O2SAT 99
--- NOTE | 2020-11-28 14:40 | PM.DS ---
DS: Admitting Diagnosis Admitting Diagnosis Admitting Diagnosis: Chief Complaint: Shortness of breath DS: Discharge Diagnosis Discharge Diagnosis (1) Acute exacerbation of CHF (congestive heart failure): Qualifiers: Heart failure type: unspecified Qualified Code(s): I50.9 - Heart failure, unspecified Code(s): I50.9 - Heart failure, unspecified Status: Acute Assessment and Plan: 11/27/20 15:32 patient is 75-year-old male with history with history of chronic kidney disease presented with a complaint of shortness of breath worse with exertion was not able to few stable without getting short winded and had gained 12 lb in 1 week, patient was suspected we congestive heart failure his last echo in 2019 showed mild systolic dysfunction with ejection fraction of 55% diastolic dysfunction with grade 2, will order cardiac echo further evaluate, unable to diurese the pain as patient creatinine is rising seen by Nephrology added hydralazine as well as hydrochlorothiazide, patient states is feeling little better compared to when he arrived able to ambulate somewhat will continue to monitor (2) Anemia: Qualifiers: Anemia type: due to chronic kidney disease Chronic kidney disease stage: stage 4 (severe) Qualified Code(s): N18.4 - Chronic kidney disease, stage 4 (severe); D63.1 - Anemia in chronic kidney disease Code(s): D64.9 - Anemia, unspecified Status: Acute (3) Pneumonia: Qualifiers: Laterality: unspecified laterality Lung location: unspecified part of lung Pneumonia type: due to unspecified organism Qualified Code(s): J18.9 - Pneumonia, unspecified organism Code(s): J18.9 - Pneumonia, unspecified organism Status: Acute (4) Hypothyroidism: Qualifiers: Hypothyroidism type: acquired Qualified Code(s): E03.9 - Hypothyroidism, unspecified Code(s): E03.9 - Hypothyroidism, unspecified Status: Acute (5) Acute hypoxemic respiratory failure: Code(s): J96.01 - Acute respiratory failure with hypoxia Status: Acute (6) Acute worsening of stage 4 chronic kidney disease: Code(s): N18.4 - Chronic kidney disease, stage 4 (severe) Status: Acute DS: Summary Hospital Course Reason for hospitalization: Chief Complaint: Shortness of breath Narrative: 75-year-old male With a past medical history of diastolic congestive heart failure, moderate mitral valve regurgitation, chronic kidney disease transitioning to stage 5, and anemia of chronic disease who presented to the ER with increasing shortness of breath and weight gain. The patient reports that he went to Dr. Sevilla's office around the 25 October at that time his Lasix was discontinued. Since that time he has developed progressive shortness of breath and weight gain for the last month with at least a 12 lb weight gain. He reports that he has been having intermittent cough for the last month. His cough has been productive of brown sputum. He reports that the sputum production usually occurs when he lays down in bed and he notices some significant post nasal drip/mucous prior to his productive cough. He is chronically chilled and denies having any fevers. He received his 2nd adviser COVID-19 vaccine about a month ago. 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 He has chronic lower extremity edema that he thinks is pretty much unchanged. He denies any chest pain. He thinks that he snores. He reports that his primary care physician wants him to have an outpatient sleep study. He reports that over the last month or so he has not felt well rested in the morning. He is noticed himself nodding off. He sometimes even has trouble staying awake at work. His oxygen saturations were normal on room air when he was awake but with sleepy did drop down to 86% despite being on 2 L nasal cannula. He reports nocturia up to 4 5 times a night. He has to sit on the to
== END 2020-11-28 15:13 | disposition home or self-care (01) | DRG 291 ==
LOC: ANHED 21:32 → ANHIMU 11-24 01:00 → ANH3MED 11-25 22:37 → ANHIMU 11-30 07:19
PROVIDERS: Hospitalist; Internal Medicine Nephrology; Admitting Provider Internal Medicine; Emergency Provider Emergency Medicine; PCP Family Medicine; Visit Provider Family Medicine
DX: I13.0 Hypertensive heart and chronic kidney disease with heart failure and stage 1 through stage 4 chronic kidney disease, or unspecified chronic kidney disease (principal); I50.33 Acute on chronic diastolic (congestive) heart failure; J18.9 Pneumonia, unspecified organism; J96.01 Acute respiratory failure with hypoxia; N18.4 Chronic kidney disease, stage 4 (severe); E11.22 Type 2 diabetes mellitus with diabetic chronic kidney disease; D63.1 Anemia in chronic kidney disease; Z20.822 Contact with and (suspected) exposure to COVID-19; E11.36 Type 2 diabetes mellitus with diabetic cataract; H26.9 Unspecified cataract; E03.9 Hypothyroidism, unspecified; I25.10 Atherosclerotic heart disease of native coronary artery without angina pectoris; I48.0 Paroxysmal atrial fibrillation; I34.0 Nonrheumatic mitral (valve) insufficiency; E78.00 Pure hypercholesterolemia, unspecified; R35.1 Nocturia; I25.2 Old myocardial infarction; Z79.01 Long term (current) use of anticoagulants; Z79.899 Other long term (current) drug therapy; Z85.528 Personal history of other malignant neoplasm of kidney; Z87.891 Personal history of nicotine dependence; Z95.5 Presence of coronary angioplasty implant and graft
CPT/HCPCS: 36415; 36430; 71045; 71046; 71250; 80048; 80053; 80069; 82728; 83540; 83550; 83605; 83735; 83880; 84443; 84484; 85025; 85027; 86850; 86900; 86901; 86923; 87040; 87070; 87205; 93005; 93306; 94762; 96365; 96375; 99285; A9270; C9803; J0360; J0456; J0696; J1100; J1756; J1940; J7050; P9016; U0003; U0005

== ENCOUNTER 2021-01-15 00:08 | Inpatient (IN) | payer MEDICARE, SELFPAY ==
[2021-01-15] VITALS (16 sets, daily range): BP systolic 112–196; BP diastolic 52–95; PULSE 50–67; RESP 16–22; TEMP 36.2–36.8; O2SAT 90–98; BMI 35.4
--- NOTE | ~2021-01-15 | XR_ITS ---
EXAMINATION: XR chest 1V portable DATE: 01/15/2021 01:14 INDICATION: Shortness of breath. TECHNIQUE: A single frontal view of the chest was obtained. COMPARISON: Chest single view 11/28/2020, chest CT 11/23/2020 FINDINGS: There are small pleural effusions. There are airspace opacities at the lung bases, likely a telectasis. There is a diffuse interstitial pattern in the lungs, consistent with mild pulmonary abiodun a. No pneumothorax. The heart size is normal. IMPRESSION: 1. Mild pulmonary edema. 2. Small pleural effusions with basilar atelectasis. Reviewed, dictated and finalized at location A.
[2021-01-15 00:44] LABS: Basophils Absolute Auto 0.1 K/mm3 (0.0-0.1); Basophils Percent Auto 1.1 % (0.2-1.2); Eosinophils Absolute Auto 0.2 K/mm3 (0-0.3); Hematocrit 31.6 % (42.0-52.0); Hemoglobin 9.7 g/dL (14.0-18.0); Immature Granulocyte Absolute 0.08 K/mm3 (0.00-0.031); Immature Granulocyte Percent A 0.8 % (0-0.5); Lymphocytes Absolute Auto 0.61 K/mm3 (0.9-3.2); Lymphocytes Percent Auto 6.4 % (18.3-44.2); Mean Corpuscular HGB Conc 30.7 g/dl (32-36); Mean Corpuscular Hemoglobin 28.4 pg (26-34); Mean Corpuscular Volume 92.4 fl (80-100); Mean Platelet Volume 9.2 fl (7.4-10.4); Monocytes Absolute Auto 0.9 K/mm3 (0.1-0.6); Monocytes Percent Auto 9.5 % (2.6-8.5); Neutrophils Absolute Auto 7.6 K/mm3 (1.3-6.7); Neutrophils Percent Auto 80.2 % (45.5-73.1); Platelet Count Result 184 k/mm3 (150-375); Red Blood Count 3.42 M/mm3 (4.6-6.20); Red Cell Distribution Width 18.3 % (11.5-14.5); White Blood Count 9.5 K/mm3 (4.5-10.0)
[2021-01-15 00:51] LABS: Anion Gap 12 mmol/L (8-16); Blood Urea Nitrogen 51 mg/dL (9-20); Calcium 9.3 mg/dL (8.4-10.2); Carbon Dioxide 21 mmol/L (22-30); Chloride 112 mmol/L (98-107); Estimated CRCL calculation 13 ml/min; Estimated Glomerular Filt Rate 11; Glucose 132 mg/dL (75-110); Sodium 145 mmol/L (137-145)
[2021-01-15 01:06] LABS: Alveolar/Arterial O2 Gradient 144.2 mmHg; Base Excess ABG -4.2 mEq/l (+/-2.0); Device NASAL CANNULA; Fractional Inspired Oxygen 36 %; HCO3 ABG 19.4 mEq/l (22.0-26.0); Modified Allen's Test Pass; Oxygen Saturation ABG 95.9 % (95.0-100.0); Oxyhemoglobin 93.7 % THb (90.0-100.0); PCO2 ABG 30.4 mmHg (35.0-45.0); PO2 ABG 77.2 mmHg (80.0-100.0); PO2 FiO2 Ratio Arterial Blood 2.14 %; Site Drawn RIGHT RADIAL; Total Hemoglobin 9.8 g/dL (12.0-18.0); pH ABG 7.423 (7.350-7.450)
[2021-01-15 01:24] LABS: NT Pro B Type Natriuretic Pept 11800 pg/mL (5-100)
[2021-01-15] MEDS: IPRATROPIUM BR 0.02% INH SOLN 0.5 MG/2.5 ML VIAL INHALATION (01:34)
[2021-01-15] MEDS: ALBUTEROL SULFATE NEB 2.5 MG/0.5 ML INH 5 MG INHALATION (01:34)
--- NOTE | 2021-01-15 03:09 | ED.SOB ---
HPI - SOB/Dyspnea General Chief Complaint: Shortness of Breath/Dyspnea Stated Complaint: sob, cp Time Seen by Provider: 01/15/21 00:22 History of Present Illness HPI Narrative: Patient is a 75-year-old male with history of heart failure of chronic kidney disease who presents ER with shortness of breath. Ongoing for the last month or worsening over the last couple days. He has orthopnea as well as productive cough of white/yellow sputum. No fevers or chills or sweats. No chest pain or chest pressure. Has had increased edema in his lower extremities. Reports compliance with home medication. Does not typically wear oxygen, found to be hypoxic here and was placed on 4 L nasal cannula to correct his hypoxia. Patient reports oxygen seems to be helping his symptoms at this time. No other alleviating factors. Related Data Home Medications Medication Instructions Recorded Confirmed atorvastatin 40 mg PO DAILY 07/14/19 12/13/20 amiodarone 200 mg DAILY 02/25/20 12/13/20 potassium chloride 10 mEq 20 meq PO DAILY 11/08/20 12/13/20 capsule,extended release metoprolol succinate 50 mg PO DAILY 11/24/20 12/13/20 Allergies Allergy/AdvReac Type Severity Reaction Status Date / Time No Known Allergies Allergy Unknown Verified 01/15/21 00:16 Review of Systems Review of Systems: All systems reviewed & are unremarkable except as noted in HPI and below Constitutional: Constitutional: Denies chills, Denies fever(s) and Denies weakness ENT: Denies nasal congestion and Denies sore throat Cardiovascular: Cardiovascular: Denies chest pain, Denies rapid heart rate and Denies radiating jaw, neck or arm pain Respiratory: Respiratory: Reports cough, Reports dyspnea and Denies wheezing Gastrointestinal: Gastrointestinal: Denies abdominal pain, Denies nausea and Denies vomiting [facility] Past Medical History Medical History (Updated 01/15/21 @ 03:39 by Valentino Gandhi MD) Anemia of chronic disease Arthritis Cataracts, bilateral Maturing Chronic kidney disease, stage V Coronary artery disease History of non STEMI in May 2018 status post drug-eluting stent to the LAD. 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 shelter anticoagulation Diverticular hemorrhage Diverticulitis Heart failure with preserved ejection fraction Echocardiogram in June 2019 showed a severely enlarged left atrial chamber, normal left ventricular size with moderate concentric left ventricular hypertrophy, left ventricular function is at the lower end of normal with an estimated ejection fraction 50-55% (although calculated at 63%), no wall motion abnormalities, moderate aortic valve calcification with no significant stenosis, moderate to moderately severe eccentric mitral valve regurgitation, mild tricuspid valve regurgitation, estimated pulmonary arterial systolic pressure of 32 mmHg, dilated inferior vena cava with <50% collapse upon inspiration consistent with elevated right atrial pressure, 10 mmHg., transesophageal echocardiogram September 2019 demonstrated moderate mitral valve regurgitation with stable EF History of cardioversion x2 Hypercholesteremia Hypertension Hypothyroidism Kidney stones (~2008) Mitral regurgitation Paroxysmal atrial fibrillation Status post cardioversion in October 2019 and February 2020. 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 Seasonal allergies Shoulder weakness Stenosis, cervical spine Type 2 diabetes mellitus Now diet controlled. Hemoglobin A1c 5.7 11/13/2020 Surgical History Surgical History History of appendectomy 1974 History of cardiac catheterization (~05/2018) Totally occlude LAD status post drug-eluting stent. Additional findings include high-grade stenosis of non dominant left circumflex, diffuse disease of the ramus intermedius, right posterior lateral branch with 30% distal stenosis, and diffuse but nonocclusive disease of a large dominant
[2021-01-15] MEDS: FUROSEMIDE INJ 40 MG/4 ML VIAL IV PUSH (03:26)
--- NOTE | 2021-01-15 04:14 | ADMGEN ---
This patient, Elias Aguirre, was admitted to [facility] Surg Room 317-01. Patient/family oriented to hospital policies and general routines including ID bracelet, bed and alarms, visiting hours, pain management, procedures, bathroom and other care routines, personal items, smoking policy, room service/diet, and visiting hours. Information on how to activate the Rapid Response Team has been discussed. Patient/Family are encouraged to report perceived risks to care and to ask questions if they do not understand what they are told or what they should do.
--- NOTE | 2021-01-15 09:57 | PM.CNNEP ---
Assessment and Plan Assessment and plan (1) Chronic kidney disease, stage 5: Code(s): N18.5 - Chronic kidney disease, stage 5 Status: Acute Assessment and Plan: The patient has chronic kidney disease stage 5. This is from hypertension and diabetes. Mitral regurgitation name be making a small contribution to the decrease in GFR via hemodynamic influences. His creatinine has progressively risen over the last couple of years. I think he is getting close to dialysis. At this point will get rid of the extra fluid and plan for dialysis initiation as an outpatient. We discussed at length hemodialysis versus peritoneal dialysis. I think he would do better with peritoneal dialysis. We discussed the 2 modalities in detail and he seems amenable to try the peritoneal dialysis. We do not have anybody at this Hospital who does this. Will get this arranged as an outpatient. Have to hold this for 5 days before the insertion. (2) CHF (congestive heart failure): Code(s): I50.9 - Heart failure, unspecified Status: Acute Assessment and Plan: The patient gained about 5 lb. He is more short of breath. Will give extra diuretics now. Some of the volume overload is due to his mitral regurg. Some of it is due to his kidneys. (3) Erythropoietin deficiency anemia: Code(s): D63.1 - Anemia in chronic kidney disease Status: Acute Assessment and Plan: The patient has a low hemoglobin. It seems to have improved however. Will give Epogen while he is here. Will check iron levels as well. (4) Hypertension: Qualifiers: Hypertension type: essential hypertension Qualified Code(s): I10 - Essential (primary) hypertension Code(s): I10 - Essential (primary) hypertension Status: Acute Assessment and Plan: His blood pressure is a bit high. He is on amlodipine and hydralazine as well as metoprolol to control this. His volume status may be contributing as well. Will restart his home medications and give diuretics to see how much better his blood pressure gets. (5) Type 2 diabetes mellitus with diabetic nephropathy: Code(s): E11.21 - Type 2 diabetes mellitus with diabetic nephropathy Status: Acute Assessment and Plan: On Accu-Cheks and sliding-scale insulin (6) Hypercholesteremia: Code(s): E78.00 - Pure hypercholesterolemia, unspecified Status: Acute Assessment and Plan: On atorvastatin (7) Subclinical hypothyroidism: Code(s): E03.9 - Hypothyroidism, unspecified Status: Acute Assessment and Plan: On levothyroxine History of Present Illness Reason for Consult Consult date: 01/15/21 Chief Complaint Chief complaint: pulmonary edema, hypoxia, ckd History of Present Illness Narrative: Narrative: Elias is a very pleasant 75-year-old gentleman who has multiple medical problems including chronic kidney disease with a baseline creatinine of around 3, coronary artery disease status post stents, moderate mitral regurgitation,Anemia of chronic disease,Arthritis, Diverticular hemorrhage, Hypercholesteremia, Hypertension, Hypothyroidism, Kidney stones (~2008), Paroxysmal atrial fibrillation, Peptic ulcer disease, Renal cell adenoma of left kidney (~07/2011), Stenosis, cervical spine, Type 2 diabetes mellitus. He says that he has been somewhat short of breath since he left the hospital however in the last few days the shortness of breath got worse. He also has a cough productive of just some clear sputum. No fevers or chills. He has not had any chest pain or pressure. He weighs him self every day and only gained about 5 lb since the last admission. He has developed a little bit of swelling but not much. The patient denies any nausea or vomiting. He is eating okay but the appetite is not perfect. He does not have any confusion. Sleeping is okay. Most of his symptoms are related to breathing. The patient has chronic kidney
[2021-01-15] MEDS: AMIODARONE HCL 200 MG TABLET BY MOUTH (09:59)
[2021-01-15] MEDS: APIXABAN 2.5 MG TABLET PO ×2 (10:00→20:37)
[2021-01-15] MEDS: POTASSIUM CHLORIDE 10 MEQ TABLET.ER 20 MEQ PO (10:00)
[2021-01-15] MEDS: hydrALAZINE HCL 50 MG TABLET PO ×3 (10:00→17:50)
[2021-01-15] MEDS: ATORVASTATIN 40 MG TABLET PO (10:00)
[2021-01-15] MEDS: METOPROLOL SUCCINATE EXT REL 50 MG TABCR PO (10:01)
[2021-01-15] MEDS: amLODIPine BESYLATE 5 MG TABLET BY MOUTH (10:01)
[2021-01-15] MEDS: LEVOTHYROXINE SODIUM 50 MCG TABLET PO (10:01)
[2021-01-15 10:59] LABS: Iron 50 ug/dL (49-181)
[2021-01-15] MEDS: BUMETANIDE INJ 2.5 MG/10 ML VIAL 2 MG IV PUSH ×2 (11:02→18:11)
[2021-01-15 11:08] LABS: Percent Iron Saturation 14 % (20-50)
[2021-01-15 12:14] LABS: Glucose Point of Care 150 mg/dl (65-105)
--- NOTE | 2021-01-15 12:26 | PM.CNCAR ---
Assessment and Plan Assessment and plan (1) Acute exacerbation of CHF (congestive heart failure): Qualifiers: Heart failure type: unspecified Qualified Code(s): I50.9 - Heart failure, unspecified Code(s): I50.9 - Heart failure, unspecified Status: Acute Assessment and Plan: 75-year-old male with CAD, history of PCI/stenting; CHF with preserved ejection fraction, atrial fibrillation (DC cardioversion on 10/21/2019) on anticoagulation with apixaban; moderate MR, mild aortic stenosis with last MAJO 2.1 cm2 from 11/28/2020 echo; CKD. Patient admitted to the hospital with worsening shortness of breath in the setting of stage 5 CKD and severe hypertension. Clinical presentation consistent with acute on chronic CHF with preserved ejection fraction. Patient has stage 5 CKD, and is approaching dialysis. -continue diuresis with IV bumetanide. Nephrology is following for management of stage 5 CKD including options were dialysis-hemodialysis versus peritoneal dialysis. -initiate vasodilators treatment with hydralazine/isosorbide dinitrate. -continue amlodipine; metoprolol. Monitor blood pressure. (2) CAD (coronary artery disease): Qualifiers: Coronary Disease-Associated Artery/Lesion type: quechan artery [place] vs. transplanted heart: quechan heart Associated angina: without angina Qualified Code(s): I25.10 - Atherosclerotic heart disease of quechan coronary artery without angina pectoris Code(s): I25.10 - Atherosclerotic heart disease of que[place] coronary artery without angina pectoris Status: Acute Assessment and Plan: Patient has history of CAD, and PCI/stenting. His home medication list does not show aspirin, probably due to anemia and being on anticoagulation with apixaban. Continue beta-manny, statin. (3) Chronic kidney disease, stage 5: Code(s): N18.5 - Chronic kidney disease, stage 5 Status: Acute Assessment and Plan: Management as per Nephrology (4) Type 2 diabetes mellitus with diabetic nephropathy: Code(s): E11.21 - Type 2 diabetes mellitus with diabetic nephropathy Status: Acute (5) History of atrial fibrillation: Code(s): Z86.79 - Personal history of other diseases of the circulatory system Status: Acute Assessment and Plan: Currently in sinus rhythm. Continue anticoagulation with apixaban. Continue amiodarone for rhythm control. History of Present Illness History of Present Illness Consult date/time: 01/15/21 12:26 DATE OF CONSULT: 01/15/2021 REASON FOR CONSULT: CHF REQUESTING PHYSICIAN:MD Hiram CHIEF COMPLAINT: Worsening shortness of breath HPI: 75-year-old male with CAD, history of PCI/stenting; CHF with preserved ejection fraction, atrial fibrillation (DC cardioversion on 10/21/2019) on anticoagulation with apixaban; moderate MR, mild aortic stenosis with last MAJO 2.1 cm2 from 11/28/2020 echo; CKD. Patient presented to [facility] on 01/15/2021 with progressively worsening shortness of breath. Patient states that he has been experiencing shortness of breath for about 1 month with worsening of symptoms for last few days. He is a able to walk just a few steps before he gets short of breath, and occasional has dyspnea at rest. His symptoms are associated with lower extremity swelling. He denies symptoms of chest pain, palpitations, dizziness or syncope. Patient follows up with for cardiovascular care. Patient has been evaluated by Nephrology, and is anticipated to be initiated on renal replacement therapy sometime soon. His blood pressure upon arrival was elevated at 190 6/95, pulse 60s, respirations 19, saturating 92%. Chest x-ray showed mild pulmonary edema, small pleural effusions with basilar [place]electasis[place] [id number]. Previous EKG from 11/26/2020 showed sinus bradycardia, IVCD. No current EKG available on the EMR or in the chart. Reason For Visit: pulmonary edema, hypoxia, ckd
--- NOTE | 2021-01-15 12:41 | ECG_ITS ---
Measurements Intervals [place] Rate: 64 P: -9 NM: 186 QRS: -14 QRSD: 130 T: 60 QT: 459 QTc: 477 Interpretive Statements SINUS OR ECTOPIC ATRIAL RHYTHM LEFT BUNDLE BRANCH BLOCK BASELINE ARTIFACT- I, II, III, AVR, AVL, AVF, V1-V3 ABNORMAL ECG Electronically Signed On 01-15-2021 13:48:54 CDT by Vikram Ochoa D.O.
--- NOTE | 2021-01-15 13:06 | PM.IMHP ---
H&P: HPI History of Present Illness Date/Time: 01/15/21 13:06 patient is 75-year-old male with history of coronary artery disease status post stent, atrial fibrillation status post cardioversion October of 2019, anticoagulated with Eliquis, with history of preserved LV function and moderate mitral wall regurgitation, patient also has history stage 5 chronic kidney disease, in need of dialysis near future, presented to emergency department with complaint shortness of breath lower extremity edema patient is seen by neighborhood worker and suspect patient has acute on chronic combined mild systolic and diastolic congestive heart failure, patient being diuresed, patient was seen by Nephrology suspect patient will need dialysis soon however currently plan is to diurese the patient as much as possible, patient had decided to do peritoneal dialysis and will need surgical evaluation which will be done as an outpatient, will continue to diurese the patient and monitor, will have PT OT evaluate the patient and further recommendation to follow Chief Complaint: Shortness of breath Review of Systems Review of Systems: All systems reviewed & are unremarkable except as noted in HPI and below PMFSH Past Medical History Medical History Anemia of chronic disease Arthritis Cataracts, bilateral Maturing Chronic kidney disease, stage 5 Chronic kidney disease, stage V Coronary artery disease History of non STEMI in May 2018 status post drug-eluting stent to the LAD. 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 fdc anticoagulation Diverticular hemorrhage Diverticulitis Erythropoietin deficiency anemia Heart failure with preserved ejection fraction Echocardiogram in June 2019 showed a severely enlarged left atrial chamber, normal left ventricular size with moderate concentric left ventricular hypertrophy, left ventricular function is at the lower end of normal with an estimated ejection fraction 50-55% (although calculated at 63%), no wall motion abnormalities, moderate aortic valve calcification with no significant stenosis, moderate to moderately severe eccentric mitral valve regurgitation, mild tricuspid valve regurgitation, estimated pulmonary arterial systolic pressure of 32 mmHg, dilated inferior vena cava with <50% collapse upon inspiration consistent with elevated right atrial pressure, 10 mmHg., transesophageal echocardiogram September 2019 demonstrated moderate mitral valve regurgitation with stable EF History of cardioversion x2 Hypercholesteremia Hypertension Hypothyroidism Kidney stones (~2008) Mitral regurgitation Paroxysmal atrial fibrillation Status post cardioversion in October 2019 and February 2020. 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 Seasonal allergies Shoulder weakness Stenosis, cervical spine Type 2 diabetes mellitus Now diet controlled. Hemoglobin A1c 5.7 11/13/2020 Type 2 diabetes mellitus with diabetic nephropathy Surgical History Surgical History History of appendectomy 1975 History of cardiac catheterization (~05/2018) Totally occlude LAD status post drug-eluting stent. Additional findings include high-grade stenosis of non dominant left circumflex, diffuse disease of the ramus intermedius, right posterior lateral branch with 30% distal stenosis, and diffuse but nonocclusive disease of a large dominant right coronary artery. History of tonsillectomy Status post cryoablation (~05/2011) Left renal cell carcinoma. Family History Family History Father Colon cancer Hypertension End stage renal disease on dialysis Mother Osteoarthritis Social History Social History Social History: The patient lives in [place] with his Zhane. He has 3 biological children and 2 step children. He worked at [employer]
[2021-01-15] MEDS: ISOSORBIDE DINITRATE 10 MG TABLET PO ×2 (13:26→17:50)
[2021-01-15] MEDS: EPOETIN ALFA-EPBX 10,000 UNITS/ML VIAL 10000 UNITS SUB-Q (15:39)
[2021-01-15 17:57] LABS: Glucose Point of Care 119 mg/dl (65-105)
[2021-01-16] VITALS (12 sets, daily range): BP systolic 130–157; BP diastolic 55–67; PULSE 45–115; RESP 20; TEMP 36.1–36.6; O2SAT 94–98
[2021-01-16 00:01] LABS: Glucose Point of Care 114 mg/dl (65-105)
[2021-01-16 05:36] LABS: Hematocrit 28.2 % (42.0-52.0); Hemoglobin 8.6 g/dL (14.0-18.0); Mean Corpuscular HGB Conc 30.5 g/dl (32-36); Mean Corpuscular Hemoglobin 28.1 pg (26-34); Mean Corpuscular Volume 92.2 fl (80-100); Mean Platelet Volume 9.1 fl (7.4-10.4); Platelet Count Result 168 k/mm3 (150-375); Red Blood Count 3.06 M/mm3 (4.6-6.20); White Blood Count 7.9 K/mm3 (4.5-10.0)
[2021-01-16 05:48] LABS: Albumin Level 3.8 g/dL (3.5-5.1); Anion Gap 11 mmol/L (8-16); Blood Urea Nitrogen 47 mg/dL (9-20); Calcium 8.6 mg/dL (8.4-10.2); Carbon Dioxide 23 mmol/L (22-30); Chloride 110 mmol/L (98-107); Estimated CRCL calculation 14 ml/min; Estimated Glomerular Filt Rate 12; Glucose 100 mg/dL (75-110); Phosphorus 4.7 mg/dL (2.5-4.5); Potassium 3.6 mmol/L (3.4-5.0); Sodium 144 mmol/L (137-145)
[2021-01-16] MEDS: LEVOTHYROXINE SODIUM 50 MCG TABLET PO (06:23)
[2021-01-16 06:40] LABS: Glucose Point of Care 103 mg/dl (65-105)
--- NOTE | 2021-01-16 08:21 | PM.PNNEP ---
Progress Note: A&P Assessment and Plan (1) Chronic kidney disease, stage 5: Code(s): N18.5 - Chronic kidney disease, stage 5 Status: Acute Assessment and Plan: The patient has chronic kidney disease stage 5. This is from hypertension and diabetes. Mitral regurgitation name be making a small contribution to the decrease in GFR via hemodynamic influences. His creatinine is a little bit better today. (2) CHF (congestive heart failure): Code(s): I50.9 - Heart failure, unspecified Status: Acute Assessment and Plan: The patient gained about 5 lb. He is more short of breath. Will give extra diuretics now. Intake/output is mildly negative. Will give metolazone. (3) Erythropoietin deficiency anemia: Code(s): D63.1 - Anemia in chronic kidney disease Status: Acute Assessment and Plan: The patient has a low hemoglobin. It seems to have improved however. On Epogen. Iron levels low. Will give iron. (4) Hypertension: Qualifiers: Hypertension type: essential hypertension Qualified Code(s): I10 - Essential (primary) hypertension Code(s): I10 - Essential (primary) hypertension Status: Acute Assessment and Plan: His blood pressure is a bit high. He is on amlodipine and hydralazine as well as metoprolol to control this. Will add metolazone and see if this helps his blood pressure. (5) Type 2 diabetes mellitus with diabetic nephropathy: Code(s): E11.21 - Type 2 diabetes mellitus with diabetic nephropathy Status: Acute Assessment and Plan: On Accu-Cheks and sliding-scale insulin (6) Hypercholesteremia: Code(s): E78.00 - Pure hypercholesterolemia, unspecified Status: Acute Assessment and Plan: On atorvastatin (7) Subclinical hypothyroidism: Code(s): E03.9 - Hypothyroidism, unspecified Status: Acute Assessment and Plan: On levothyroxine Subjective Date/time seen: 01/16/21 08:21 Interval history: Mr. scott is feeling better today. He slept well last night. Swelling is a little better. His shortness of breath is a little bit better. He made urine last night Review of Systems Cardiovascular: Cardiovascular: Reports no additional cardiovascular complaints Respiratory: Respiratory: Reports no additional respiratory complaints Gastrointestinal: Gastrointestinal: Reports no additional gastrointestinal complaints Genitourinary: Genitourinary: Reports no additional male genitourinary complaints Exam Narrative: Exam Narrative: WDWN in NAD skin no rash head ncat lungs decreased breath sounds at the bases cor reg no rub abd BS+ nontender and soft ext is 1 to 2+ edema. Objective Data Vital Signs Vital Signs: Vital Signs - 24 hr 01/15/21 09:59 01/15/21 10:01 01/15/21 12:00 Temperature Pulse Rate 60 60 50 L Respiratory Rate Blood Pressure Pulse Oximetry 01/15/21 14:00 01/15/21 16:00 01/15/21 20:00 Temperature 36.8 C Pulse Rate 54 L 50 L 50 L Respiratory Rate 16 22 H Blood Pressure 112/52 L Pulse Oximetry 93 92 01/15/21 22:00 01/15/21 22:50 01/16/21 04:00 Temperature 36.2 C L Pulse Rate 50 L 56 L Respiratory Rate 22 H Blood Pressure 144/61 H Pulse Oximetry 98 92 01/16/21 06:00 Temperature 36.1 C L Pulse Rate 53 L Respiratory Rate 20 Blood Pressure 154/67 H Pulse Oximetry 97 Intake/Output Intake/Output: Intake & Output 01/13/21 01/14/21 01/15/21 01/16/21 23:59 23:59 23:59 23:59 Intake Total 1640 240 Output Total 1500 1150 Balance 140 -910 Meds/Results Medications: Active Medications Generic Name Dose Route Start Last Admin Trade Name Freq PRN Reason Stop Dose Admin Acetaminophen 650 mg 01/15/21 03:11 Acetaminophen 325 Mg Tablet PO Q4H PRN Mild Pain (1-3) or Fever Hydrocodone Bitart/Acetaminophen 1 tab 01/15/21 03:11 Hydrocodone/Acetaminophen (*Crx) 5-325
[2021-01-16] MEDS: hydrALAZINE HCL 50 MG TABLET PO ×3 (09:33→17:03)
[2021-01-16] MEDS: APIXABAN 2.5 MG TABLET PO ×2 (09:33→21:40)
[2021-01-16] MEDS: amLODIPine BESYLATE 5 MG TABLET PO (09:33)
[2021-01-16] MEDS: POTASSIUM CHLORIDE 10 MEQ TABLET.ER 20 MEQ PO (09:33)
[2021-01-16] MEDS: metOLazone 5 MG TABLET PO (09:33)
[2021-01-16] MEDS: ISOSORBIDE DINITRATE 10 MG TABLET PO ×3 (09:33→17:03)
[2021-01-16] MEDS: ATORVASTATIN 40 MG TABLET PO (09:34)
[2021-01-16] MEDS: BUMETANIDE INJ 2.5 MG/10 ML VIAL 2 MG IV PUSH ×2 (09:34→17:04)
[2021-01-16] MEDS: IRON SUCROSE COMPLEX 200 MG in SODIUM CHLORIDE 0.9% IV 50 ML 120 MG IVPB (10:01)
--- NOTE | 2021-01-16 10:37 | PM.PNCARD ---
Progress Note: A&P Assessment and Plan (1) Acute exacerbation of CHF (congestive heart failure): Qualifiers: Heart failure type: unspecified Qualified Code(s): I50.9 - Heart failure, unspecified <FARHAN Gutierrez - Last Filed: 01/16/21 15:44> Code(s): I50.9 - Heart failure, unspecified <FARHAN Gutierrez - Last Filed: 01/16/21 15:44> Status: Acute <FARHAN Gutierrez - Last Filed: 01/16/21 15:44> Assessment and Plan: 75-year-old male with CAD, history of PCI/stenting; CHF with preserved ejection fraction, atrial fibrillation (DC cardioversion on 10/21/2019) on anticoagulation with apixaban; moderate MR, mild aortic stenosis with last MAJO 2.1 cm2 from 11/28/2020 echo; CKD. Patient admitted to the hospital with worsening shortness of breath in the setting of stage 5 CKD and severe hypertension. Clinical presentation consistent with acute on chronic CHF with preserved ejection fraction. Patient has stage 5 CKD, and is approaching dialysis. -continue diuresis with IV bumetanide. Nephrology is following for management of stage 5 CKD including options were dialysis-hemodialysis versus peritoneal dialysis. Will probably transition to p.o. diuretics tomorrow -continue amlodipine, metoprolol, hydralazine, isosorbide. Monitor blood pressure. <FARHAN Gutierrez - Last Filed: 01/16/21 15:44> (2) CAD (coronary artery disease): Qualifiers: Associated angina: without angina Coronary Disease-Associated Artery/Lesion type: [place] artery [place] vs. transplanted heart: [place] heart Qualified Code(s): I25.10 - Atherosclerotic heart disease of [place] coronary artery without angina pectoris <FARHAN Gutierrez - Last Filed: 01/16/21 15:44> Code(s): I25.10 - Atherosclerotic heart disease of [place] coronary artery without angina pectoris <FARHAN Gutierrez - Last Filed: 01/16/21 15:44> Status: Acute <FARHAN Gutierrez - Last Filed: 01/16/21 15:44> Assessment and Plan: Patient has history of CAD, and PCI/stenting. His home medication list does not show aspirin, probably due to anemia and being on anticoagulation with apixaban. Continue beta-manny, statin. <FARHAN Gutierrez - Last Filed: 01/16/21 15:44> (3) Chronic kidney disease, stage 5: Code(s): N18.5 - Chronic kidney disease, stage 5 <FARHAN Gutierrez - Last Filed: 01/16/21 15:44> Status: Chronic <FARHAN Gutierrez - Last Filed: 01/16/21 15:44> Assessment and Plan: Management as per Nephrology <FARHAN Gutierrez - Last Filed: 01/16/21 15:44> (4) Type 2 diabetes mellitus with diabetic nephropathy: Code(s): E11.21 - Type 2 diabetes mellitus with diabetic nephropathy <FARHAN Gutierrez - Last Filed: 01/16/21 15:44> Status: Chronic <FARHAN Gutierrez - Last Filed: 01/16/21 15:44> (5) History of atrial fibrillation: Code(s): Z86.79 - Personal history of other diseases of the circulatory system <FARHAN Gutierrez - Last Filed: 01/16/21 15:44> Status: Acute <FARHAN Gutierrez - Last Filed: 01/16/21 15:44> Assessment and Plan: Currently in sinus rhythm. Continue anticoagulation with apixaban. Continue amiodarone for rhythm control. <FARHAN Gutierrez - Last Filed: 01/16/21 15:44> Additional Plan I personally saw and evaluated the patient. I reviewed Dejah Ma's note and agree with findings and plan of care as documented in the note. <Antwon Stevens MD - Last Filed: 01/30/21 08:50> Subjective Date/time seen: 01/16/21 10:37 <FARHAN Gutierrez - Last Filed: 01/16/21 15:44> Interval history: Cardiology follow-up for CHF, atrial fibrillation. Date of service 01/16/2021: Patient states he is feeling much better today. He says that he has been out of bed walking with physical therapy and experienced significantly
[2021-01-16 11:58] LABS: Glucose Point of Care 145 mg/dl (65-105)
--- NOTE | 2021-01-16 13:47 | PM.IMPN ---
Progress Note: A&P Assessment and Plan (1) Acute on chronic combined systolic and diastolic CHF (congestive heart failure): Code(s): I50.43 - Acute on chronic combined systolic (congestive) and diastolic (congestive) heart failure Status: Acute Assessment and Plan: 01/15/21 13:06 patient is 75-year-old male with history of coronary artery disease status post stent, atrial fibrillation status post cardioversion October of 2019, anticoagulated with Eliquis, with history of preserved LV function and moderate mitral wall regurgitation, patient also has history stage 5 chronic kidney disease, in need of dialysis near future, presented to emergency department with complaint shortness of breath lower extremity edema patient is 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 by recycling 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 and suspect patient has acute on chronic combined mild systolic and diastolic congestive heart failure, patient being diuresed, patient was seen by Nephrology suspect patient will need dialysis soon however currently plan is to diurese the patient as much as possible, patient had decided to do peritoneal dialysis and will need surgical evaluation which will be done as outpatient, will continue to diurese the patient and monitor, will have PT OT evaluate the patient and further recommendation to follow (2) History of atrial fibrillation: Code(s): Z86.79 - Personal history of other diseases of the circulatory system Status: Acute Assessment and Plan: Rate is controlled patient anticoagulated Eliquis (3) Chronic kidney disease, stage 5: Code(s): N18.5 - Chronic kidney disease, stage 5 Status: Acute Assessment and Plan: Patient is close to end-stage renal disease will need hemodialysis on seen by spray drier operator helper thinking about peritoneal dialysis and further recommendation to follow (4) Type 2 diabetes mellitus with diabetic nephropathy: Code(s): E11.21 - Type 2 diabetes mellitus with diabetic nephropathy Status: Acute Assessment and Plan: Will continue home regimen and monitor Subjective Date/time seen: 01/16/21 13:47 I FEEL MUCH BETTER Interval history: Cardiology follow-up for CHF, atrial fibrillation. Date of service 01/16/2021: Patient states he is feeling much better today. He says that he has been out of bed walking with physical therapy and experienced significantly less shortness of breath with exertion today. He also notes that the swelling in his ankles is improved. Review of Systems Review of Systems: All systems reviewed & are unremarkable except as noted in HPI and below Exam Const: General: comfortable, no acute distress, well developed, alert and awake Nutritional Appearance: average body habitus Orientation/consciousness: patient oriented x3 HENMT: Head: normal to inspection, normocephalic and atraumatic Ears: hearing grossly normal bilaterally Face and sinus: normal facial exam Eyes: General: appearance normal, both eyes and all related structures Pupils: Equal, round and reactive pupils present EOM: EOMs intact bilaterally Neck: Neck: full ROM, no lymphadenopathy and no JVD Thyroid: thyroid normal Lymphatic: no lymphadenopathy noted Resp: Effort & Inspection: normal respiratory effort and able to speak in complete sentences Auscultation: clear to auscultation bilaterally Cardio: Jugular venous distension: no JVD Rate: regular rate Rhythm: regular rhythm Heart sounds: S1 normal heart sound present and S2 normal heart sound present GI: GI Palp: Yes Soft to palpation and Yes No hepatosplenomegaly present : General: Yes deferred Skin: Rashes: no rashes Wounds: no wounds Neuro: General: patient oriented x3 and CN's II-XI intact bilaterally Cranial nerves: Yes CN's II-XII intact bilaterally and Yes Equal, round and reactive pupils present Cognition (Neuro): normal cognition Speech: normal speech Gait exam (Neuro): Normal gait present Motor exam (neuro): 5/5 motor strength present throughout Extre
[2021-01-16 16:54] LABS: Glucose Point of Care 111 mg/dl (65-105)
[2021-01-16 22:56] LABS: Glucose Point of Care 121 mg/dl (65-105)
[2021-01-17] VITALS (13 sets, daily range): BP systolic 123–151; BP diastolic 55–84; PULSE 47–59; RESP 18–20; TEMP 36.4–36.7; O2SAT 90–95
[2021-01-17 06:05] LABS: Hematocrit 27.6 % (42.0-52.0); Hemoglobin 8.6 g/dL (14.0-18.0); Mean Corpuscular HGB Conc 31.2 g/dl (32-36); Mean Corpuscular Hemoglobin 28.4 pg (26-34); Mean Corpuscular Volume 91.1 fl (80-100); Mean Platelet Volume 8.9 fl (7.4-10.4); Platelet Count Result 160 k/mm3 (150-375); Red Blood Count 3.03 M/mm3 (4.6-6.20); Red Cell Distribution Width 18.2 % (11.5-14.5); White Blood Count 7.5 K/mm3 (4.5-10.0)
[2021-01-17 06:19] LABS: Albumin Level 3.7 g/dL (3.5-5.1); Anion Gap 12 mmol/L (8-16); Blood Urea Nitrogen 48 mg/dL (9-20); Calcium 8.5 mg/dL (8.4-10.2); Carbon Dioxide 23 mmol/L (22-30); Chloride 108 mmol/L (98-107); Estimated CRCL calculation 14 ml/min; Estimated Glomerular Filt Rate 12; Glucose 96 mg/dL (75-110); Phosphorus 4.3 mg/dL (2.5-4.5); Potassium 3.2 mmol/L (3.4-5.0); Sodium 143 mmol/L (137-145)
[2021-01-17] MEDS: LEVOTHYROXINE SODIUM 50 MCG TABLET PO (06:29)
[2021-01-17 06:44] LABS: Glucose Point of Care 91 mg/dl (65-105)
--- NOTE | 2021-01-17 07:46 | PM.PNNEP ---
Progress Note: A&P Assessment and Plan (1) Chronic kidney disease, stage 5: Code(s): N18.5 - Chronic kidney disease, stage 5 Status: Acute Assessment and Plan: The patient has chronic kidney disease stage 5. This is from hypertension and diabetes. Mitral regurgitation name be making a small contribution to the decrease in GFR via hemodynamic influences. His creatinine is a little bit better today. At this point I think we can hold off on starting dialysis. Will continue getting fluid off. As soon as he is comfortable going home with respect to his breathing then we can have him set up for education for dialysis and placement of a PD catheter. I talked with the Education people. (2) CHF (congestive heart failure): Code(s): I50.9 - Heart failure, unspecified Status: Acute Assessment and Plan: The patient gained about 5 lb. He is more short of breath. Will give extra diuretics now. Intake/output is mildly negative. Will give metolazone . (3) Erythropoietin deficiency anemia: Code(s): D63.1 - Anemia in chronic kidney disease Status: Acute Assessment and Plan: The patient has a low hemoglobin. It seems to have improved however. On Epogen and iron. (4) Hypertension: Qualifiers: Hypertension type: essential hypertension Qualified Code(s): I10 - Essential (primary) hypertension Code(s): I10 - Essential (primary) hypertension Status: Acute Assessment and Plan: His blood pressure is doing well. (5) Type 2 diabetes mellitus with diabetic nephropathy: Code(s): E11.21 - Type 2 diabetes mellitus with diabetic nephropathy Status: Acute Assessment and Plan: On Accu-Cheks and sliding-scale insulin (6) Hypercholesteremia: Code(s): E78.00 - Pure hypercholesterolemia, unspecified Status: Acute Assessment and Plan: On atorvastatin (7) Subclinical hypothyroidism: Code(s): E03.9 - Hypothyroidism, unspecified Status: Acute Assessment and Plan: On levothyroxine Subjective Date/time seen: 01/17/21 07:46 Interval history: Mr. scott is feeling better today. He slept well last night. Breathing is improved. He is on 2L of oxygen now instead of 4. He is eating fine. Exam Narrative: Exam Narrative: WDWN in NAD skin no rash head ncat lungs decreased breath sounds at the bases cor reg no rub or gallop abd BS+ nontender and soft ext is 1 to 2+ edema; this is a little bit better than yesterday. Objective Data Vital Signs Vital Signs: Vital Signs - 24 hr 01/16/21 08:00 01/16/21 09:17 01/16/21 09:31 Temperature Pulse Rate 53 L 47 L Respiratory Rate Blood Pressure Pulse Oximetry 97 01/16/21 09:33 01/16/21 09:51 01/16/21 12:05 Temperature Pulse Rate 47 L 50 L Respiratory Rate Blood Pressure Pulse Oximetry 94 01/16/21 14:00 01/16/21 16:00 01/16/21 20:00 Temperature 36.6 C Pulse Rate 45 L 53 L 115 H Respiratory Rate 20 Blood Pressure 130/55 L Pulse Oximetry 98 01/16/21 22:00 01/17/21 00:00 01/17/21 04:00 Temperature 36.3 C L Pulse Rate 51 L 57 L 57 L Respiratory Rate 20 Blood Pressure 157/62 H Pulse Oximetry 94 01/17/21 05:52 Temperature 36.7 C Pulse Rate 58 L Respiratory Rate 20 Blood Pressure 125/68 Pulse Oximetry 90 Intake/Output Intake/Output: Intake & Output 01/14/21 01/15/21 01/16/21 01/17/21 23:59 23:59 23:59 23:59 Intake Total 1640 1920 650 Output Total 1500 1850 1600 Balance 140 70 -950 Meds/Results Medications: Active Medications Generic Name Dose Route Start Last Admin Trade Name Freq PRN Reason Stop Dose Admin Acetaminophen 650 mg 01/15/21 03:11 Acetaminophen 325 Mg Tablet PO Q4H PRN Mild Pain (1-3) or Fever Hydrocodone Bitart/Acetaminophen 1 tab 01/15/21 03:11 Hydrocodone/Acetaminophen (*Crx) 5-325 Mg Tablet PO Q4H PRN Pain
[2021-01-17] MEDS: IRON SUCROSE COMPLEX 200 MG in SODIUM CHLORIDE 0.9% IV 50 ML 120 MG IVPB (08:26)
[2021-01-17] MEDS: AMIODARONE HCL 200 MG TABLET BY MOUTH (08:27)
[2021-01-17] MEDS: POTASSIUM CHLORIDE 20 MEQ TABLET 40 MEQ PO (08:27)
[2021-01-17] MEDS: ATORVASTATIN 40 MG TABLET PO (08:29)
[2021-01-17] MEDS: METOPROLOL SUCCINATE EXT REL 50 MG TABCR PO (08:29)
[2021-01-17] MEDS: metOLazone 5 MG TABLET PO (08:29)
[2021-01-17] MEDS: POTASSIUM CHLORIDE 10 MEQ TABLET.ER 20 MEQ PO (08:29)
[2021-01-17] MEDS: amLODIPine BESYLATE 5 MG TABLET PO (08:30)
[2021-01-17] MEDS: ISOSORBIDE DINITRATE 10 MG TABLET PO ×3 (08:30→16:42)
[2021-01-17] MEDS: BUMETANIDE INJ 2.5 MG/10 ML VIAL 2 MG IV PUSH ×2 (08:31→16:41)
[2021-01-17] MEDS: hydrALAZINE HCL 50 MG TABLET PO ×3 (08:31→16:42)
[2021-01-17 08:48] LABS: Glucose Point of Care 265 mg/dl (65-105)
[2021-01-17 11:24] LABS: Glucose Point of Care 150 mg/dl (65-105)
--- NOTE | 2021-01-17 12:27 | PM.PNCARD ---
Progress Note: A&P Assessment and Plan (1) Acute exacerbation of CHF (congestive heart failure): Qualifiers: Heart failure type: unspecified Qualified Code(s): I50.9 - Heart failure, unspecified Code(s): I50.9 - Heart failure, unspecified Status: Acute Assessment and Plan: 75-year-old male with CAD, history of PCI/stenting; CHF with preserved ejection fraction, atrial fibrillation (DC cardioversion on 10/21/2019) on anticoagulation with apixaban; moderate MR, mild aortic stenosis with last MAJO 2.1 cm2 from 11/28/2020 echo; CKD. Patient admitted to the hospital with worsening shortness of breath in the setting of stage 5 CKD and severe hypertension. Clinical presentation consistent with acute on chronic CHF with preserved ejection fraction. Patient has stage 5 CKD, and is approaching dialysis. -continue diuresis with IV bumetanide. Nephrology is following for management of stage 5 CKD including options were dialysis-hemodialysis versus peritoneal dialysis. -continue amlodipine, metoprolol, hydralazine, isosorbide. Monitor blood pressure. (2) CAD (coronary artery disease): Qualifiers: Coronary Disease-Associated Artery/Lesion type: [place] artery [place] vs. transplanted heart: [place] heart Associated angina: without angina Qualified Code(s): I25.10 - Atherosclerotic heart disease of [place] coronary artery without angina pectoris Code(s): I25.10 - Atherosclerotic heart disease of [place] coronary artery without angina pectoris Status: Acute Assessment and Plan: Patient has history of CAD, and PCI/stenting. His home medication list does not show aspirin, probably due to anemia and being on anticoagulation with apixaban. Continue beta-manny, statin. (3) Chronic kidney disease, stage 5: Code(s): N18.5 - Chronic kidney disease, stage 5 Status: Acute Assessment and Plan: Management as per Nephrology (4) Type 2 diabetes mellitus with diabetic nephropathy: Code(s): E11.21 - Type 2 diabetes mellitus with diabetic nephropathy Status: Acute (5) History of atrial fibrillation: Code(s): Z86.79 - Personal history of other diseases of the circulatory system Status: Acute Assessment and Plan: Currently in sinus rhythm. Continue anticoagulation with apixaban. Continue amiodarone for rhythm control. Subjective Date/time seen: 01/17/21 12:27 Interval history: Cardiology 75 yo admitted for CHF, atrial fibrillation. Date of service 01/17/2021: Patient states he is feeling much better today. Legs are slightly swollen. Off all oxygen. Review of Systems Review of Systems: All systems reviewed & are unremarkable except as noted in HPI and below Constitutional: Constitutional: Denies weakness Eyes: Eyes: Denies blurry vision ENT: Reports Normal hearing present Cardiovascular: Cardiovascular: Denies chest pain Respiratory: Respiratory: Reports dyspnea Gastrointestinal: Gastrointestinal: Denies abdominal pain Genitourinary: Genitourinary: Denies dysuria Musculoskeletal: Musculoskeletal: Denies neck pain Integumentary/Breasts: Skin/Breast: Denies dry skin Neurologic: Denies headache(s) Psychiatric: Psychiatric: Denies confusion Endocrine: Endocrine: Denies change in body appearance Hematologic/Lymphatic: Hematologic/Lymphatic: Denies easy bleeding Allergic/Immunologic: Allergic/Immunologic: Denies GI upset with certain foods Exam Narrative: Exam Narrative: Obese male. Alert oriented x3. Pleasant and cooperative. Const: General: comfortable and no acute distress HENMT: Head: normal to inspection and normocephalic Eyes: General: appearance normal, both eyes and all related structures Neck: Neck: supple and no JVD (Difficult to assess due to body habitus.) Resp: Effort & Inspection: normal respiratory effort Auscultation: crackles diffuse (Fine crackles) Cardio: Rate: regular rate Rh
[2021-01-17] MEDS: EPOETIN ALFA-EPBX 10,000 UNITS/ML VIAL 10000 UNITS SUB-Q (13:29)
[2021-01-17 16:31] LABS: Glucose Point of Care 118 mg/dl (65-105)
--- NOTE | 2021-01-17 19:50 | PM.IMPN ---
Progress Note: A&P Assessment and Plan (1) Acute on chronic combined systolic and diastolic CHF (congestive heart failure): Code(s): I50.43 - Acute on chronic combined systolic (congestive) and diastolic (congestive) heart failure Status: Acute Assessment and Plan: Continuing diuresis under care of Nephrology and Cardiology Negative fluid balance Improved respiratory status Continue current care (2) History of atrial fibrillation: Code(s): Z86.79 - Personal history of other diseases of the circulatory system Status: Acute Assessment and Plan: Rate is controlled Patient fully anticoagulated on Eliquis (3) Chronic kidney disease, stage 5: Code(s): N18.5 - Chronic kidney disease, stage 5 Status: Acute Assessment and Plan: CKD 5 advancing to end-stage renal disease will require peritoneal dialysis soon. Patient will follow-up with nephrology after discharge for outpatient arrangements. (4) Type 2 diabetes mellitus with diabetic nephropathy: Code(s): E11.21 - Type 2 diabetes mellitus with diabetic nephropathy Status: Acute Assessment and Plan: Will continue home regimen and monitor Subjective Date/time seen: 01/17/21 14:50 Patient doing okay at the time my rounds without complaint sitting up in chair watching TV. Exam Narrative: Exam Narrative: Moderately obese elderly Patient is comfortable, NAD HEENT: eyes are clear and none icteric LUNGS: Bilateral reduced air movement with rales HEART: RR S1S2 ABD: BS+, Soft and nontender Lower extremities: Bilateral 1+ edema SKIN: nonjaundiced Neuro: grossly intact. Objective Data Vital Signs Vital Signs: Vital Signs - 24 hr 01/16/21 20:00 01/16/21 22:00 01/17/21 00:00 Temperature 97.4 F L Pulse Rate 115 H 51 L 57 L Respiratory Rate 20 Blood Pressure 157/62 H Pulse Oximetry 94 01/17/21 04:00 01/17/21 05:52 01/17/21 08:00 Temperature 98.0 F Pulse Rate 57 L 58 L 58 L Respiratory Rate 20 Blood Pressure 125/68 Pulse Oximetry 90 01/17/21 08:27 01/17/21 08:29 01/17/21 10:57 Temperature Pulse Rate 58 L 58 L 54 L Respiratory Rate 18 Blood Pressure Pulse Oximetry 93 01/17/21 11:28 01/17/21 12:00 01/17/21 14:00 Temperature 97.8 F Pulse Rate 49 L 47 L Respiratory Rate 20 Blood Pressure 123/55 L Pulse Oximetry 94 95 01/17/21 16:00 Temperature Pulse Rate 55 L Respiratory Rate Blood Pressure Pulse Oximetry Intake/Output Intake/Output: Intake & Output 01/14/21 01/15/21 01/16/21 01/17/21 23:59 23:59 23:59 23:59 Intake Total 1640 1920 1860 Output Total 1500 1850 3800 Balance 140 70 -1940 Meds/Results Medications: Active Medications Generic Name Dose Route Start Last Admin Trade Name Freq PRN Reason Stop Dose Admin Acetaminophen 650 mg 01/15/21 03:11 Acetaminophen 325 Mg Tablet PO Q4H PRN Mild Pain (1-3) or Fever Hydrocodone Bitart/Acetaminophen 1 tab 01/15/21 03:11 Hydrocodone/Acetaminophen (*Crx) 5-325 Mg Tablet PO Q4H PRN Pain Rated 4-6 Amiodarone HCl 200 mg 01/15/21 09:00 01/17/21 08:27 Amiodarone Hcl 200 Mg Tablet BY MOUTH 200 mg DAILY YING Administration Amlodipine Besylate 5 mg 01/16/21 09:00 01/17/21 08:30 Amlodipine Besylate 5 Mg Tablet PO 5 mg QAM YING Administration Apixaban 2.5 mg 01/15/21 09:00 01/17/21 08:30 Apixaban 2.5 Mg Tablet PO Not Given Q12HR YING Atorvastatin Calcium 40 mg 01/15/21 09:00 01/17/21 08:29 Atorvastatin 40 Mg Tablet PO 40 mg DAILY IYNG Administration Bumetanide 2 mg 01/15/21 10:30 01/17/21 16:41 Bumetanide Inj 2.5 Mg/10 Ml Vial IV PUSH 2 mg BID YING Administration Epoetin Chance-epbx 10,000 units 01/15/21 14:00 01/17/21 13:29 Epoetin Chance-Epbx 10,000 Units/Ml Vial SUB-Q 10,000 units [id number] YING Administration Hydralazine HCl 50 mg 01/15/21 09:00 01/17/21 16:42 Hydralazine Hc
[2021-01-17] MEDS: APIXABAN 2.5 MG TABLET PO (21:12)
[2021-01-18] VITALS (8 sets, daily range): BP systolic 129–155; BP diastolic 63–83; PULSE 45–59; RESP 16–20; TEMP 36.4; O2SAT 92–100
[2021-01-18 06:04] LABS: Hematocrit 30.7 % (42.0-52.0); Hemoglobin 9.5 g/dL (14.0-18.0); Mean Corpuscular HGB Conc 30.9 g/dl (32-36); Mean Corpuscular Hemoglobin 28.4 pg (26-34); Mean Corpuscular Volume 91.6 fl (80-100); Mean Platelet Volume 8.9 fl (7.4-10.4); Platelet Count Result 200 k/mm3 (150-375); Red Blood Count 3.35 M/mm3 (4.6-6.20); Red Cell Distribution Width 18.3 % (11.5-14.5); White Blood Count 8.7 K/mm3 (4.5-10.0)
[2021-01-18 06:22] LABS: Albumin Level 4.1 g/dL (3.5-5.1); Anion Gap 12 mmol/L (8-16); Blood Urea Nitrogen 49 mg/dL (9-20); Carbon Dioxide 23 mmol/L (22-30); Chloride 107 mmol/L (98-107); Estimated CRCL calculation 13 ml/min; Estimated Glomerular Filt Rate 12; Glucose 100 mg/dL (75-110); Phosphorus 4.2 mg/dL (2.5-4.5); Potassium 3.4 mmol/L (3.4-5.0); Sodium 142 mmol/L (137-145)
[2021-01-18 08:08] LABS: Glucose Point of Care 88 mg/dl (65-105)
[2021-01-18] MEDS: amLODIPine BESYLATE 5 MG TABLET PO (09:44)
[2021-01-18] MEDS: ATORVASTATIN 40 MG TABLET PO (09:45)
[2021-01-18] MEDS: IRON SUCROSE COMPLEX 200 MG in SODIUM CHLORIDE 0.9% IV 50 ML 120 MG IVPB (09:45)
[2021-01-18] MEDS: ISOSORBIDE DINITRATE 10 MG TABLET PO ×2 (09:45→12:00)
[2021-01-18] MEDS: hydrALAZINE HCL 50 MG TABLET PO ×2 (09:45→12:00)
[2021-01-18] MEDS: METOPROLOL SUCCINATE EXT REL 50 MG TABCR PO (09:45)
[2021-01-18] MEDS: AMIODARONE HCL 200 MG TABLET BY MOUTH (09:47)
[2021-01-18] MEDS: metOLazone 5 MG TABLET PO (09:47)
[2021-01-18] MEDS: APIXABAN 2.5 MG TABLET PO (09:48)
[2021-01-18] MEDS: POTASSIUM CHLORIDE 10 MEQ TABLET.ER 20 MEQ PO (09:48)
--- NOTE | 2021-01-18 10:38 | PM.PNNEP ---
Progress Note: A&P Assessment and Plan (1) Chronic kidney disease, stage 5: Code(s): N18.5 - Chronic kidney disease, stage 5 Status: Chronic Assessment and Plan: secndary to hypertension and diabetes mitral regurgitation maybe making a small contribution to the decrease in GFR via hemodynamic influences creatinine is relatively stable no need for urgent LEAD PROGRAMMER ANALYST/dialysis at this time probably okay for discharge soon -- Dr. Sevilla has arranged for outpatient dialysis education and subsequent PD catheter placement (if patient willing) (2) CHF (congestive heart failure): Code(s): I50.9 - Heart failure, unspecified Status: Acute Assessment and Plan: better diuresis in the last 24 hours with loop diuretics and metolazone follow I/Os and respiratory status (3) Erythropoietin deficiency anemia: Code(s): D63.1 - Anemia in chronic kidney disease Status: Acute Assessment and Plan: doing better getting epogen + iron while hospitalized (4) Hypertension: Qualifiers: Hypertension type: essential hypertension Qualified Code(s): I10 - Essential (primary) hypertension Code(s): I10 - Essential (primary) hypertension Status: Chronic Assessment and Plan: BP under reasonable control follow trend of hemodynmics (5) Type 2 diabetes mellitus with diabetic nephropathy: Code(s): E11.21 - Type 2 diabetes mellitus with diabetic nephropathy Status: Chronic Assessment and Plan: follow Accu-Cheks on sliding-scale insulin Will continue to follow. Subjective Date/time seen: 01/18/21 10:38 Feels reasonably well with improvement in his breathing and swelling/edema with diuretic therapy; no other acute issues or problems voiced. Exam Narrative: Exam Narrative: General: WD/WN male in NAD Heart: normal S1 and S2; no rub Lungs: clear to auscultation Abdomen: soft, nontender, nondistended, positive bowel sounds Extremities: no cyanosis or clubbing; 1- 2+ edema Skin: warm and dry Objective Data Vital Signs Vital Signs: Vital Signs Temp Pulse Resp BP Pulse Ox 01/18/21 09:47 54 L 01/18/21 09:45 54 L 01/18/21 05:28 36.4 C 59 L 20 155/83 H 92 01/17/21 22:55 93 01/17/21 21:50 36.4 C 59 L 20 151/84 H 90 01/17/21 16:00 55 L 01/17/21 14:00 36.6 C 47 L 20 123/55 L 95 01/17/21 12:00 49 L 01/17/21 11:28 94 01/17/21 10:57 54 L 18 93 Intake/Output Intake/Output: Intake & Output 01/15/21 01/16/21 01/17/21 01/18/21 23:59 23:59 23:59 23:59 Intake Total 1640 1920 1860 1040 Output Total 1500 1850 3800 700 Balance 140 70 -1940 340 Meds/Results Medications: Active Medications Generic Name Dose Route Start Last Admin Trade Name Freq PRN Reason Stop Dose Admin Acetaminophen 650 mg 01/15/21 03:11 Acetaminophen 325 Mg Tablet PO Q4H PRN Mild Pain (1-3) or Fever Hydrocodone Bitart/Acetaminophen 1 tab 01/15/21 03:11 Hydrocodone/Acetaminophen (*Crx) 5-325 Mg Tablet PO Q4H PRN Pain Rated 4-6 Amiodarone HCl 200 mg 01/15/21 09:00 01/18/21 09:47 Amiodarone Hcl 200 Mg Tablet BY MOUTH 200 mg DAILY YING Administration Amlodipine Besylate 5 mg 01/16/21 09:00 01/18/21 09:44 Amlodipine Besylate 5 Mg Tablet PO 5 mg QAM YING Administration Apixaban 2.5 mg 01/15/21 09:00 01/18/21 09:48 Apixaban 2.5 Mg Tablet PO 2.5 mg Q12HR YING Administration Atorvastatin Calcium 40 mg 01/15/21 09:00 01/18/21 09:45 Atorvastatin 40 Mg Tablet PO 40 mg DAILY YING Administration Bumetanide 2 mg 01/15/21 10:30 01/17/21 16:41 Bumetanide Inj 2.5 Mg/10 Ml Vial IV PUSH 2 mg BID YING Administration Epoetin Chance-epbx 10,000 units 01/15/21 14:00 01/17/21 13:29 Epoetin Chance-Epbx 10,000 Units/Ml Vial SUB-Q 10,000 units MoWeFr@1400 YING Administration Hydralazine HCl 50 mg 01/15/21 09:00 01/18/21 09:45
[2021-01-18] MEDS: BUMETANIDE INJ 2.5 MG/10 ML VIAL 2 MG IV PUSH (10:42)
--- NOTE | 2021-01-18 11:40 | PM.PNCARD ---
Progress Note: A&P Assessment and Plan (1) Acute exacerbation of CHF (congestive heart failure): Qualifiers: Heart failure type: unspecified Qualified Code(s): I50.9 - Heart failure, unspecified Code(s): I50.9 - Heart failure, unspecified Status: Acute Assessment and Plan: 75-year-old male with CAD, history of PCI/stenting; CHF with preserved ejection fraction, atrial fibrillation (DC cardioversion on 10/21/2019) on anticoagulation with apixaban; moderate MR, mild aortic stenosis with last MAJO 2.1 cm2 from 11/28/2020 echo; CKD. Patient admitted to the hospital with worsening shortness of breath in the setting of stage 5 CKD and severe hypertension. Clinical presentation consistent with acute on chronic CHF with preserved ejection fraction. Patient has stage 5 CKD, and is approaching dialysis. -continue diuresis with IV bumetanide. Nephrology is following for management of stage 5 CKD including options were dialysis-hemodialysis versus peritoneal dialysis. -continue amlodipine, metoprolol, hydralazine, isosorbide. Monitor blood pressure. Will give 20 mEq of potassium chloride p.o. times (2) CAD (coronary artery disease): Qualifiers: Coronary Disease-Associated Artery/Lesion type: [place] artery [place] vs. transplanted heart: [place] heart Associated angina: without angina Qualified Code(s): I25.10 - Atherosclerotic heart disease of [place] coronary artery without angina pectoris Code(s): I25.10 - Atherosclerotic heart disease of [place] coronary artery without angina pectoris Status: Acute Assessment and Plan: Patient has history of CAD, and PCI/stenting. His home medication list does not show aspirin, probably due to anemia and being on anticoagulation with apixaban. Continue beta-manny, statin. (3) Chronic kidney disease, stage 5: Code(s): N18.5 - Chronic kidney disease, stage 5 Status: Acute Assessment and Plan: Management as per Nephrology (4) Type 2 diabetes mellitus with diabetic nephropathy: Code(s): E11.21 - Type 2 diabetes mellitus with diabetic nephropathy Status: Acute (5) History of atrial fibrillation: Code(s): Z86.79 - Personal history of other diseases of the circulatory system Status: Acute Assessment and Plan: Currently in sinus rhythm. Continue anticoagulation with apixaban. Continue amiodarone for rhythm control. Subjective Date/time seen: 01/18/21 11:40 Interval history: Cardiology 75 yo admitted for CHF, atrial fibrillation. Date of service 01/18/2021: Patient states he is feeling much better today. Legs are slightly swollen. overall much improved Review of Systems Review of Systems: All systems reviewed & are unremarkable except as noted in HPI and below Constitutional: Constitutional: Denies headache(s) and Denies weakness Eyes: Eyes: Denies blurry vision ENT: Reports Normal hearing present, Denies headache(s) and Denies neck pain Cardiovascular: Cardiovascular: Denies chest pain and Reports dyspnea Respiratory: Respiratory: Reports dyspnea Gastrointestinal: Gastrointestinal: Denies abdominal pain Genitourinary: Genitourinary: Denies dysuria Musculoskeletal: Musculoskeletal: Denies neck pain Integumentary/Breasts: Skin/Breast: Denies dry skin Neurologic: Reports Normal hearing present, Denies confusion, Denies headache(s) and Denies weakness Psychiatric: Psychiatric: Denies confusion Endocrine: Endocrine: Denies change in body appearance Hematologic/Lymphatic: Hematologic/Lymphatic: Denies easy bleeding Allergic/Immunologic: Allergic/Immunologic: Denies GI upset with certain foods Exam Narrative: Exam Narrative: Obese male. Alert oriented x3. Pleasant and cooperative. Const: General: comfortable and no acute distress; No confusion Orientation/consciousness: No confusion HENMT: Head: normal to inspection and normocephalic Eyes: General:
[2021-01-18 11:49] LABS: Glucose Point of Care 159 mg/dl (65-105)
[2021-01-18] MEDS: POTASSIUM CHLORIDE 20 MEQ TABLET PO (12:00)
--- NOTE | 2021-01-18 14:19 | PCRCNOTE ---
HOME O2 EVAL COMPLETED IN PLACE OF SIX MINUTE WALK TEST, 6MWT IS ONLY COMPLETED A OUTPATIENT TEST. NO HOME O2 NEEDED AT THIS TIME. RN NOTIFIED.
--- NOTE | 2021-01-18 14:39 | PM.DS ---
DS: Admitting Diagnosis Admitting Diagnosis Admitting Diagnosis: (1) Acute on chronic combined systolic and diastolic CHF (congestive heart failure): Code(s): I50.43 - Acute on chronic combined systolic (congestive) and diastolic (congestive) heart failure Status: Acute Assessment and Plan: (2) History of atrial fibrillation: Code(s): Z86.79 - Personal history of other diseases of the circulatory system Status: Acute Assessment and Plan: Rate is controlled patient anticoagulated Eliquis (3) Chronic kidney disease, stage 5: Code(s): N18.5 - Chronic kidney disease, stage 5 Status: Acute Assessment and Plan: Patient is close to end-stage renal disease will need hemodialysis on seen by food processing chemist thinking about peritoneal dialysis and further recommendation to follow (4) Type 2 diabetes mellitus with diabetic nephropathy: Code(s): E11.21 - Type 2 diabetes mellitus with diabetic nephropathy Status: Acute Assessment and Plan: Will continue home regimen and monitor DS: Discharge Diagnosis Discharge Diagnosis (1) Acute on chronic combined systolic and diastolic CHF (congestive heart failure): Code(s): I50.43 - Acute on chronic combined systolic (congestive) and diastolic (congestive) heart failure Status: Acute (2) History of atrial fibrillation: Code(s): Z86.79 - Personal history of other diseases of the circulatory system Status: Acute (3) Erythropoietin deficiency anemia: Code(s): D63.1 - Anemia in chronic kidney disease Status: Acute (4) Type 2 diabetes mellitus with diabetic nephropathy: Code(s): E11.21 - Type 2 diabetes mellitus with diabetic nephropathy Status: Acute (5) Hypoxia: Code(s): R09.02 - Hypoxemia Status: Acute (6) Chronic kidney disease, stage 5: Code(s): N18.5 - Chronic kidney disease, stage 5 Status: Acute (7) Pulmonary edema: Code(s): J81.1 - Chronic pulmonary edema Status: Acute (8) CKD (chronic kidney disease): Code(s): N18.9 - Chronic kidney disease, unspecified Status: Acute (9) Hypothyroidism: Qualifiers: Hypothyroidism type: acquired Qualified Code(s): E03.9 - Hypothyroidism, unspecified Code(s): E03.9 - Hypothyroidism, unspecified Status: Acute (10) Acute hypoxemic respiratory failure: Code(s): J96.01 - Acute respiratory failure with hypoxia Status: Acute DS: Summary Hospital Course Reason for hospitalization: Shortness of breath Hospital Course: 75-year-old male with history of coronary artery disease status post stent, atrial fibrillation status post cardioversion October of 2019, anticoagulated with Eliquis, with history of preserved LV function and moderate mitral wall regurgitation, patient also has history stage 5 chronic kidney disease, in need of dialysis near future, presented to emergency department with complaint shortness of breath lower extremity edema patient is seen by auto parker and suspect patient has acute on chronic combined mild systolic and diastolic congestive heart failure, patient being diuresed, patient was seen by Nephrology suspect patient will need dialysis soon however currently plan is to diurese the patient as much as possible, patient had decided to do peritoneal dialysis and will need surgical evaluation which will be done as outpatient, will continue to diurese the patient and monitor, will have PT OT evaluate the patient and further recommendation to follow Patient had a benign clinical course. He is maintained on his home medications. He was successfully diuresed under care of Cardiology and Nephrology. He was successfully weaned from oxygen to room air and passed a 6 minutes walk test prior to his discharge. Unfortunately, patient has advancing CKD 5 soon to require dialysis. Patient is discharged home in stable condition with indications to follow up with Nephr
== END 2021-01-18 15:06 | disposition home or self-care (01) | DRG 291 ==
LOC: ANHED 00:51 → ANH3MEDSUR 03:37
PROVIDERS: Family Medicine; Internal Medicine Nephrology; Admitting Provider Internal Medicine; Emergency Provider Emergency Medicine; PCP Family Medicine; Visit Provider Hospitalist
DX: I13.2 Hypertensive heart and chronic kidney disease with heart failure and with stage 5 chronic kidney disease, or end stage renal disease (principal); I50.43 Acute on chronic combined systolic (congestive) and diastolic (congestive) heart failure; J96.01 Acute respiratory failure with hypoxia; N18.5 Chronic kidney disease, stage 5; J81.1 Chronic pulmonary edema; Z87.891 Personal history of nicotine dependence; I25.10 Atherosclerotic heart disease of native coronary artery without angina pectoris; Z95.5 Presence of coronary angioplasty implant and graft; Z79.01 Long term (current) use of anticoagulants; I34.0 Nonrheumatic mitral (valve) insufficiency; D63.8 Anemia in other chronic diseases classified elsewhere; M19.90 Unspecified osteoarthritis, unspecified site; I25.2 Old myocardial infarction; E78.00 Pure hypercholesterolemia, unspecified; I48.0 Paroxysmal atrial fibrillation; E11.21 Type 2 diabetes mellitus with diabetic nephropathy; Z85.528 Personal history of other malignant neoplasm of kidney; E66.9 Obesity, unspecified; Z68.35 Body mass index [BMI] 35.0-35.9, adult; Z86.79 Personal history of other diseases of the circulatory system; E02 Subclinical iodine-deficiency hypothyroidism
CPT/HCPCS: 36415; 36600; 71045; 80048; 80069; 82728; 82805; 82948; 83540; 83550; 83605; 83880; 85025; 85027; 93005; 94618; 94640; 96365; 96366; 96375; 96376; 97161; 97165; 99285; A9270; G0378; J1756; J1940; Q5106

== ENCOUNTER 2021-04-19 14:59 | Outpatient (CLI) | payer MEDICARE, SELFPAY ==
--- NOTE | 2021-04-19 16:25 | WPDPFTINT ---
PFT Procedure Performed PFT Procedure Performed Plethysmography (Lung Vol) Diffusing Cap (DLCO) Flow Vol Loop Spirometry w/o Bronchodil PFT Interpretation This is a pulmonary function test with spirometry, plethysmography and diffusing capacity. The test was performed and results interpreted in accordance with the 2019 and 2005 ATS/ERS Task Force guidelines respectively using the Global Lung Function Initiative-2012 reference equations. Patient demonstrated good effort and cooperation. Reproducibility criteria were met. The quality of the spirometry maneuver was Grade A. Findings: Spirometry: The contour the inspiratory and expiratory flow tracing are normal. The FVC is 2.63 L, 75% predicted. The FEV1 is 2.04 L, 77% predicted. The FEV1: FVC ratio 77%. Plethysmography: The total lung capacity is 4.58 L, 73% predicted. The functional residual capacity is 2.18 L, 66% predicted. The residual volume is 1.57 L, 67% predicted. Diffusing capacity: The absolute diffusion capacity is 9.7, 42% predicted. The diffusing capacity corrected for alveolar volume is 2.37, 59% predicted. Impression: There is a mild restrictive ventilatory abnormality. The spirometry is normal without evidence of an obstructive abnormality. The absolute diffusing capacity is moderately decreased and remains moderately decreased when corrected for alveolar volume. There are no prior studies for comparison
== END 2021-04-19 15:00 | disposition home or self-care (01) ==
LOC: ANHPFT 15:02
PROVIDERS: PCP Family Medicine; Visit Provider Internal Medicine Cardiovascular Disease
DX: Z51.81 Encounter for therapeutic drug level monitoring (principal); Z79.899 Other long term (current) drug therapy; R94.2 Abnormal results of pulmonary function studies
CPT/HCPCS: 94375; 94726; 94729

== ENCOUNTER 2022-03-27 10:52 | Inpatient (IN) | payer MEDICARE, SELFPAY ==
[2022-03-27] VITALS (32 sets, daily range): BP systolic 91–108; BP diastolic 67–80; PULSE 43–117; RESP 12–26; TEMP 36.1–36.6; O2SAT 88–99
--- NOTE | ~2022-03-27 | US_ITS ---
EXAMINATION: US soft tissue chest DATE: 04/02/2022 11:05 INDICATION: Assess pleural fluid TECHNIQUE: Multiple grayscale and Doppler ultrasound images of the left and right chest were obtained . COMPARISON: None FINDINGS/IMPRESSION: There are small bilateral pleural effusions. Reviewed, dictated and finalized at location A.
--- NOTE | ~2022-03-27 | XR_ITS ---
EXAMINATION: [id number] DATE: 04/02/2022 15:55 INDICATION: Status post right thoracentesis TECHNIQUE: frontal view of the chest was obtained. COMPARISON: Chest radiograph dated 04/01/2022 FINDINGS: Mild opacities at the bilateral lung bases. Blunting at the left costophrenic angle consistent with s mall left pleural effusion. No pulmonary edema, pneumothorax or evident residual right pleural effusi on. The cardiomediastinal silhouette is within normal limits for AP technique. Mild thoracolumbar dex trocurvature. IMPRESSION: 1. Small left pleural effusion and mild bibasilar opacities which could represent atelectasis or pneu monia. Reviewed, dictated and finalized at location A. IMPRESSION: 1. Small left pleural effusion and mild bibasilar opacities which could represe nt atelectasis or pneumonia.
--- NOTE | ~2022-03-27 | US_ITS ---
EXAMINATION: US thoracentesis DATE: 04/02/2022 16:10 INDICATION: pleural effusion TECHNIQUE: The procedure and its risks and benefits were discussed with the patient. Potential risks discussed included bleeding, infection, and pneumothorax. The patient understood the risks and agreed to proceed. The skin was prepped and draped in sterile fashion. 1% lidocaine was used for local anes thesia. Under ultrasound guidance, a 5 Fr catheter with trochar was advanced into the right pleural e ffusion. Fluid was aspirated. The catheter was removed, and a dressing was applied. There were no imm ediate complications. FINDINGS: Ultrasound images demonstrate a small right pleural effusion and the catheter within the fluid. IMPRESSION: 1. Successful ultrasound-guided thoracentesis yielding 600 mL of cloudy dark daniel-colored fluid. Reviewed, dictated and finalized at location A. IMPRESSION: 1. Successful ultrasound-guided thoracentesis yielding 600 mL of cloudy dark a mber-colored fluid.
--- NOTE | ~2022-03-27 | US_ITS ---
EXAMINATION: US right upper quadrant DATE: 03/29/2022 09:37 INDICATION: Abnormal liver function tests. TECHNIQUE: Multiple grayscale and Doppler ultrasound images of the abdomen were obtained. COMPARISON: CT abdomen and pelvis 03/27/2022 FINDINGS: The visualized portions of the head and body of the pancreas are normal. The liver is solomon l without focal lesion. There is antegrade phasic flow in main portal vein. The gallbladder is normal in size and contains sludge. Gallbladder wall thickening is noted. There was no sonographic Brennan s ign. The common duct is normal and measures 4 mm. There is a right pleural effusion. IMPRESSION: 1. Gallbladder sludge. Gallbladder wall thickening is likely secondary to interstitial edema. 2. Right pleural effusion. Reviewed, dictated and finalized at location A. IMPRESSION: 1. Gallbladder sludge. Gallbladder wall thickening is likely secondary to inter stitial edema. 2. Right pleural effusion.
--- NOTE | ~2022-03-27 | XR_ITS ---
EXAMINATION: XR chest 1V portable DATE: 03/29/2022 10:33 INDICATION: Shortness of breath. TECHNIQUE: A single frontal view of the chest was obtained. COMPARISON: Chest single view 01/15/21, chest CT 03/27/2022 FINDINGS: The patient is rotated to his left. There are small pleural effusions. There are airspace o pacities at the lung bases. No pneumothorax. The heart size is normal. IMPRESSION: 1. Stable small pleural effusions. 2. Airspace opacities at the lung bases, likely atelectasis. Reviewed, dictated and finalized at location A.
--- NOTE | ~2022-03-27 | CT_ITS ---
EXAMINATION: CT chest abdomen pelvis wo con DATE: 03/27/2022 11:53 INDICATION: Shortness of breath. Left flank pain. Fluid retention. Patient on dialysis. History of re nal cancer treated with ablation. TECHNIQUE: Computed tomography (CT) of the chest, abdomen, and pelvis was performed without intraveno us contrast. Automated exposure control and iterative reconstruction technique were employed. Exam do se: 1849.31 mGy-cm total exam DLP. COMPARISON: 01/15/2021 portable AP chest 11/23/2020 CTA chest 04/06/2013 MRI abdomen 05/25/2011 CT renal scan FINDINGS: CHEST CT: Mild right and slight left gynecomastia. Mild cardiomegaly. No pericardial effusion. Prominent extens dee coronary artery calcification. Thoracic aortic and great vessel calcifications. No thoracic aortic aneurysm. No hilar or mediastinal mass lesion or lymphadenopathy. There are moderate bilateral pleural effusion s, right greater than left. There is bilateral lower lobe infiltrate and compressive atelectasis secondary to the pleural effusio ns ABDOMEN/PELVIS CT: There is mild ascites. The gallbladder is present. No bile duct or pancreatic duct dilatation. No hepatic, splenic, pancreat ic space-occupying mass lesion. Probable small left adrenal adenoma. The right adrenal gland is unremarkable. There is a very prominent amorphous irregular calcification at the site of a prior lateral lower pole left renal mass, likely postablation necrosis and calcification. No renal mass lesion is noted other pena. Prominent bilateral renal atrophy and cortical thinning. No ureteral calculus or hydroureterone phrosis. Prostate enlargement and calcifications. Diverticulosis of left and right colon; no CT evidence of diverticulitis. No bowel obstruction or int raperitoneal free air is detected. Status post mesh ventral abdominal wall hernia repair. Percutaneous dialysis catheter has been placed percutaneously at the left periumbilical area. Extensive calcification but normal caliber of the abdominal aorta as well as prominent calcifications of celiac, hepatic, splenic, superior mesenteric, inferior mesenteric and renal arteries. Bilateral fat and fluid containing inguinal hernias, larger on the left. Degenerative changes of cervical, thoracic and lumbar spine. Osteoarthritic change at the hip joints. No suspicious osteolytic or osteoblastic lesions are noted. 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 Mild ascites. Diverticulosis of left and right colon; no evidence of diverticulitis Mild cardiomegaly Extensive coronary artery calcification extensive abdominal aortic and celiac, hepatic, splenic, supe rior mesenteric and inferior mesenteric and renal artery calcifications. No abdominal aortic aneurysm Moderately large pleural effusions, right greater than left, with bilateral lower lung infiltrate, co mpressive atelectasis Reviewed, dictated and finalized at Location A. Reviewed, dictated and finalized at location B. IMPRESSION: Postablation changes at site of prior neoplasm of the lower pole t he right kidney, including prominent amorphous calcifications No residual or recurrent tumor mass is noted on this limited noncontrast examin ation Prominent bilateral renal atrophy Peritoneal dialysis catheter. Mild ascites. Diverticulosis of left and right colon; no evidence of diverticulitis Mild cardiomegaly Extensive coronary artery calcification extensive abdominal aortic and celiac, hepatic, splenic, superior mesenteric and i
--- NOTE | ~2022-03-27 | XR_ITS ---
XR chest 2V 04/01/2022 13:09 Indication: Pleural effusion Procedure: 2 view chest Comparison: Comparison to multiple prior studies sequentially, with oldest reviewed study dated 03/2021. Findings: Cardiomegaly. Small pleural effusions. Bibasilar atelectasis. No focal pneumonia, edema or pneumothorax. Impression: 1: Small pleural effusions with underlying compressive atelectasis. 2: Cardiomegaly. Reviewed, dictated and finalized at location B. Impression: 1: Small pleural effusions with underlying compressive atelectasis. 2: Cardiomegaly.
--- NOTE | 2022-03-27 11:02 | ECG_ITS ---
Measurements Intervals [place] Rate: 97 P: MI: 0 QRS: -25 QRSD: 122 T: 152 QT: 400 QTc: 510 Interpretive Statements ATRIAL FIBRILLATION WITH ABERRANT CONDUCTION OR VENTRICULAR PREMATURE COMPLEXES LEFT BUNDLE BRANCH BLOCK [120+ ms QRS DURATION, 80+ ms Q/S IN V1/V2, 85+ ms R IN I/aVL/V5/V6] COMPARED TO ECG 01/15/2021 00:14:53 ATRIAL FIBRILLATION NOW PRESENT ABERRANT CONDUCTION OF SUPRAVENTRICULAR BEAT(S) NOW PRESENT Electronically Signed On 03-27-2022 18:31:58 CDT by Tejal Quiroga M.D.
--- NOTE | 2022-03-27 11:04 | ED.SOB ---
HPI - SOB/Dyspnea General Chief Complaint: Unspecified Stated Complaint: PD catheter issues Time Seen by Provider: 03/27/22 10:53 History of Present Illness HPI Narrative: pt here with sob and abd swelling due to dialysis can't pull off enough with peritoneal no cp/f/uri/n/v/d/abd pain or other c/o trying ot adjust formula and not working Related Data Home Medications Medication Instructions Recorded Confirmed atorvastatin 80 mg tablet 40 mg PO DAILY 07/14/19 11/12/21 calcitriol 0.25 mcg capsule 0.25 mcg PO DAILY 11/12/21 11/12/21 calcium acetate(phosphat bind) 667 2,001 mg PO TID 11/12/21 11/12/21 mg capsule furosemide 40 mg tablet (Lasix) 80 mg PO BID 11/12/21 11/12/21 hydralazine 50 mg tablet 25 mg PO BID 11/12/21 11/12/21 isosorbide mononitrate 30 mg 30 mg PO DAILY 11/12/21 11/12/21 tablet,extended release 24 hr Allergies Allergy/AdvReac Type Severity Reaction Status Date / Time No Known Allergies Allergy Unknown Verified 03/27/22 11:10 Review of Systems Constitutional: Comments: CONSTITUTIONAL: Denies fever, chills, or sweats. EYES: Denies visual changes, redness, or discharge. ENT: Denies rhinorrhea, congestion, sore throat, or otalgia. CARDIOVASCULAR: Denies chest pain, palpitations, or edema. RESPIRATORY: Denies cough has dyspnea. GASTROINTESTINAL: Denies abdominal pain, nausea, vomiting, or diarrhea. has abd swelling GENITOURINARY: Denies dysuria or hematuria. SKIN: Denies rash or itching. MUSCULOSKELETAL: Denies back pain, joint pain, or myalgia. NEUROLOGIC: Denies headache, numbness, or weakness. PSYCHIATRIC: Denies anxiety or depression. [facility] Past Medical History Medical History Anemia of chronic disease Arthritis Cataracts, bilateral Maturing Chronic kidney disease, stage 5 Chronic kidney disease, stage V Coronary artery disease History of non STEMI in May 2018 status post drug-eluting stent to the LAD. 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 longterm anticoagulation Diverticular hemorrhage Diverticulitis Erythropoietin deficiency anemia Heart failure with preserved ejection fraction Echocardiogram in June 2019 showed a severely enlarged left atrial chamber, normal left ventricular size with moderate concentric left ventricular hypertrophy, left ventricular function is at the lower end of normal with an estimated ejection fraction 50-55% (although calculated at 63%), no wall motion abnormalities, moderate aortic valve calcification with no significant stenosis, moderate to moderately severe eccentric mitral valve regurgitation, mild tricuspid valve regurgitation, estimated pulmonary arterial systolic pressure of 32 mmHg, dilated inferior vena cava with <50% collapse upon inspiration consistent with elevated right atrial pressure, 10 mmHg., transesophageal echocardiogram September 2019 demonstrated moderate mitral valve regurgitation with stable EF History of atrial fibrillation History of cardioversion x2 Hypercholesteremia Hypertension Hypothyroidism Kidney stones (~2008) Mitral regurgitation Paroxysmal atrial fibrillation Status post cardioversion in October 2019 and February 2020. 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 Seasonal allergies Shoulder weakness Stenosis, cervical spine Type 2 diabetes mellitus Now diet controlled. Hemoglobin A1c 5.7 11/13/2020 Type 2 diabetes mellitus with diabetic nephropathy Surgical History Surgical History History of appendectomy 1975 History of cardiac catheterization (~05/2018) Totally occlude LAD status post drug-eluting stent. Additional findings include high-grade stenosis of non dominant left circumflex, diffuse disease of the ramus intermedius, right posterior lateral branch with 30% distal stenosis, and diffuse but nonocclusive disease of a large dominant right coronary artery. History of tonsillectomy Sta
[2022-03-27 11:27] LABS: Alveolar/Arterial O2 Gradient 40.5 mmHg; Base Excess ABG -4.9 mEq/l (+/-2.0); Fractional Inspired Oxygen 21 %; HCO3 ABG 17.9 mEq/l (22.0-26.0); Oxygen Content ABG 15.7 %vol (16.0-22.0); Oxyhemoglobin 93.2 % THb (90.0-100.0); PO2 ABG 76.9 mmHg (80.0-100.0); PO2 FiO2 Ratio Arterial Blood 3.66 %; Total Hemoglobin 11.9 g/dL (12.0-18.0)
[2022-03-27 11:28] LABS: Device ROOM AIR; Modified Allen's Test Pass; Site Drawn LEFT RADIAL
[2022-03-27 11:32] LABS: Basophils Absolute Auto 0.1 K/mm3 (0.0-0.1); Basophils Percent Auto 0.5 % (0.2-1.2); Eosinophils Percent Auto 0.2 % (0-4.4); Hematocrit 29.9 % (42.0-52.0); Immature Granulocyte Absolute 0.12 K/mm3 (0.00-0.031); Immature Granulocyte Percent A 0.9 % (0-0.5); Lymphocytes Absolute Auto 1.03 K/mm3 (0.9-3.2); Mean Corpuscular HGB Conc 30.1 g/dl (32-36); Mean Corpuscular Hemoglobin 33.2 pg (26-34); Mean Corpuscular Volume 110.3 fl (80-100); Mean Platelet Volume 11.1 fl (7.4-10.4); Monocytes Absolute Auto 1.2 K/mm3 (0.1-0.6); Monocytes Percent Auto 9.1 % (2.6-8.5); Neutrophils Absolute Auto 10.5 K/mm3 (1.3-6.7); Neutrophils Percent Auto 81.3 % (45.5-73.1); Platelet Count Result 183 k/mm3 (150-375); Red Blood Count 2.71 M/mm3 (4.6-6.20); Red Cell Distribution Width 15.4 % (11.5-14.5); White Blood Count 12.9 K/mm3 (4.5-10.0)
[2022-03-27 11:43] LABS: INR 2.9; Partial Thromboplastin Time 38.9 SECONDS (22.3-36.8); Prothrombin Time 29.7 Seconds (11.1-14.7)
[2022-03-27 11:45] LABS: Anisocytosis 1+ (NORMAL); Ovalocytes 1+ (NORMAL); Platelet Estimate Adequate (Adequate)
--- NOTE | 2022-03-27 11:45 | PC.NURSE ---
Pt to CT.
[2022-03-27 11:49] LABS: Alanine Aminotransferase 657 U/L (6-50); Albumin Level 3.9 g/dL (3.5-5.1); Alkaline Phosphatase 141 U/L (38-126); Anion Gap 18 mmol/L (8-16); Aspartate Amino Transferase 587 U/L (17-59); Bilirubin,Total 1.6 mg/dL (0.2-1.3); Blood Urea Nitrogen 54 mg/dL (9-20); Calcium 8.5 mg/dL (8.4-10.2); Carbon Dioxide 20 mmol/L (22-30); Chloride 100 mmol/L (98-107); Estimated CRCL calculation 7 ml/min; Estimated Glomerular Filt Rate 6; Glucose 171 mg/dL (65-110); Lipase 151 U/L (23-300); Magnesium 2.1 mg/dL (1.6-2.3); Potassium 4.4 mmol/L (3.4-5.0); Sodium 138 mmol/L (137-145)
[2022-03-27 12:22] LABS: Troponin I 0.621 ng/mL (0.000-0.034)
[2022-03-27 12:23] LABS: NT Pro B Type Natriuretic Pept > 35000 pg/mL (5-100)
[2022-03-27 12:26] LABS: SARS-CoV-2 RNA PCR Negative
[2022-03-27 12:50] LABS: Ammonia 15 umol/L (9-30)
--- NOTE | 2022-03-27 12:50 | PC.NURSE ---
Dr. Salas at bedside for intubation with supplies at bedside. RT and multiples RN at bedside for assistance. 20mg etomidate IVP given per VRBO @ 1248 200mg succinylcholine given in two doses per VRBO. 1ml of succ given at 1248 9ml of succ given at 1249 HR dropping into low 30s. 1mg Atropine given at 1250 per VRBO. External pacing initiated at rate of [address] Salas at 1251. Pt intubated with 7ETT, 22 @ lip. Color change and bilateral breath sounds noted. 1251
--- NOTE | 2022-03-27 13:21 | PC.NURSE ---
at bedside to discuss results and treatment plan with pt.
[2022-03-27] MEDS: FUROSEMIDE INJ 40 MG/4 ML VIAL IV PUSH ×2 (13:35→18:18)
--- NOTE | 2022-03-27 13:42 | ED.GENADULT ---
HPI - General Adult General Chief complaint: Unspecified Stated complaint: PD catheter issues Time Seen by Provider: 03/27/22 10:53 Related Data Home Medications Medication Instructions Recorded Confirmed calcitriol 0.25 mcg capsule 0.25 mcg PO DAILY 11/12/21 04/17/22 atorvastatin 40 mg tablet 40 mg PO DAILY 03/27/22 04/17/22 furosemide 80 mg tablet 80 mg PO 1500 03/27/22 04/17/22 metoprolol succinate 25 mg 25 mg PO DAILY 03/27/22 04/17/22 tablet,extended release 24 hr Allergies Allergy/AdvReac Type Severity Reaction Status Date / Time No Known Allergies Allergy Unknown Verified 04/16/22 11:39 [facility] Past Medical History Medical History Anemia of chronic disease Arthritis Cataracts, bilateral Maturing Chronic kidney disease, stage 5 Chronic kidney disease, stage V Coronary artery disease History of non STEMI in May 2018 status post drug-eluting stent to the LAD. 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 bed bug exterminator anticoagulation Diverticular hemorrhage Diverticulitis Erythropoietin deficiency anemia Heart failure with preserved ejection fraction Echocardiogram in June 2019 showed a severely enlarged left atrial chamber, normal left ventricular size with moderate concentric left ventricular hypertrophy, left ventricular function is at the lower end of normal with an estimated ejection fraction 50-55% (although calculated at 63%), no wall motion abnormalities, moderate aortic valve calcification with no significant stenosis, moderate to moderately severe eccentric mitral valve regurgitation, mild tricuspid valve regurgitation, estimated pulmonary arterial systolic pressure of 32 mmHg, dilated inferior vena cava with <50% collapse upon inspiration consistent with elevated right atrial pressure, 10 mmHg., transesophageal echocardiogram September 2019 demonstrated moderate mitral valve regurgitation with stable EF History of atrial fibrillation History of cardioversion x2 Hypercholesteremia Hypertension Hypothyroidism Kidney stones (~2008) Mitral regurgitation Paroxysmal atrial fibrillation Status post cardioversion in October 2019 and February 2020. 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 Renal osteodystrophy Seasonal allergies Shoulder weakness Stenosis, cervical spine Type 2 diabetes mellitus Now diet controlled. Hemoglobin A1c 5.7 11/13/2020 Type 2 diabetes mellitus with diabetic nephropathy Surgical History Surgical History History of appendectomy 1975 History of cardiac catheterization (~05/2018) Totally occlude LAD status post drug-eluting stent. Additional findings include high-grade stenosis of non dominant left circumflex, diffuse disease of the ramus intermedius, right posterior lateral branch with 30% distal stenosis, and diffuse but nonocclusive disease of a large dominant right coronary artery. History of tonsillectomy Status post cryoablation (~05/2011) Left renal cell carcinoma. Family History Family History Father Colon cancer Hypertension End stage renal disease on dialysis Mother Osteoarthritis Social History Social History Social History: The patient lives in [place] with his Zhane. He has 3 biological children and 2 step children. He worked at [employer] for many years. He now works part-time at the [employer]. He smoked up to 1 pack of cigarettes per day for about 30 years and quit in 1997. He drinks alcohol socially and in moderation. No illicit substance use. His , Zhane, is his surrogate decision maker. Code status full code. Primary care physician: Dr. Jamila Bojorquez Smoking packs per day: 1 Smoking cigarettes per day: 20.0 Years smoked: 30 Smoking pac
--- NOTE | 2022-03-27 14:17 | PM.IMHP ---
H&P: HPI History of Present Illness Date/Time: 03/27/22 14:17 Chief Complaint: Shortness of breath Narrative: This is a 76-year-old male patient who has a history of end-stage renal disease and performs peritoneal dialysis at home. The patient stated that he has been coughing but does not have any fever chills. The patient also stated that he is having some lower extremity edema and feels that off. Patient stated that he does occasionally urinate but has not been able to urinate today. He does not complain of any chest pain but has some nausea without vomiting he has had a poor appetite for several days. His white count was noted to be 12.9. H&H is 9.0 in 29.9 which is his baseline. His anion gap is 18 BUN 54 creatinine 9.0. Lactic 5.0. Liver enzymes are elevated C reactive protein 5.0. BNP greater than 35,000. COVID is negative. Patient's blood pressure is on the soft side today. The patient stated that they have been taking him off of his blood pressure medicines. Patient is being admitted to inpatient services on the date of service of 03/27/2022. Review of Systems Review of Systems: See HPI All systems reviewed & are unremarkable except as noted in HPI and below Constitutional: Constitutional: Reports as per HPI and Reports no additional constitutional complaints Eyes: Eyes: Reports as per HPI and Reports no additional eye complaints ENT: Reports system reviewed and no additional complaints, except as documented and Reports Normal hearing present Cardiovascular: Cardiovascular: Reports no additional cardiovascular complaints Respiratory: Respiratory: Reports no additional respiratory complaints and Reports no additional respiratory complaints Gastrointestinal: Gastrointestinal: Reports as per HPI and Reports no additional gastrointestinal complaints Musculoskeletal: Musculoskeletal: Reports no additional musculoskeletal complaints Integumentary/Breasts: Skin/Breast: Reports system reviewed and no additional complaints, except as docu and Reports as per HPI Neurologic: Reports system reviewed and no additional complaints, except as documented, Reports as per HPI and Reports Normal hearing present Psychiatric: Psychiatric: Reports no additional psychiatric complaints and Reports as per HPI Endocrine: Endocrine: Reports no additional endocrine complaints Hematologic/Lymphatic: Hematologic/Lymphatic: Reports no additional hematologic/lymphatic complaints Allergic/Immunologic: Allergic/Immunologic: Reports no additional allergic/immunologic complaints [facility] Past Medical History Medical History (Updated 03/27/22 @ 15:28 by Zhane A. Benhoff, LABOR RELATIONS DIRECTOR) Anemia of chronic disease Arthritis Cataracts, bilateral Maturing Chronic kidney disease, stage 5 Chronic kidney disease, stage V Coronary artery disease History of non STEMI in May 2018 status post drug-eluting stent to the LAD. 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 Diverticular hemorrhage Diverticulitis Erythropoietin deficiency anemia Heart failure with preserved ejection fraction Echocardiogram in June 2019 showed a severely enlarged left atrial chamber, normal left ventricular size with moderate concentric left ventricular hypertrophy, left ventricular function is at the lower end of normal with an estimated ejection fraction 50-55% (although calculated at 63%), no wall motion abnormalities, moderate aortic valve calcification with no significant stenosis, moderate to moderately severe eccentric mitral valve regurgitation, mild tricuspid valve regurgitation, estimated pulmonary arterial systolic pressure of 32 mmHg, dilated inferior vena cava with <50% collapse upon inspiration consistent with elevated right atrial pressure, 10 mmHg., transesophageal echocardiogram September 2019 demonstrated moderate mitral valve regurgitation with stable EF History of atrial fibrillation History of cardioversion x2 Hypercholesteremia Hypertension Hypothyroidism Kidney stone
--- NOTE | 2022-03-27 14:20 | PC.NURSE ---
Zithromax still infusing at this time. Will initiated Rocephin upon completion.
[2022-03-27 14:26] LABS: Reflex Lactic Acid Yes or No Add Lactic
[2022-03-27] MEDS: cefTRIAXone 2 GM in SODIUM CHLORIDE 0.9% IV 100 ML 200 ML IVPB (15:00)
[2022-03-27] MEDS: ONDANSETRON INJ 4 MG/2 ML VIAL IV PUSH (15:21)
--- NOTE | 2022-03-27 15:31 | ADMGEN ---
This patient, Elias Aguirre, was admitted to IMU Room 204-01. Patient/family oriented to hospital policies and general routines including ID bracelet, bed and alarms, visiting hours, pain management, procedures, bathroom and other care routines, personal items, smoking policy, room service/diet, and visiting hours. Information on how to activate the Rapid Response Team has been discussed. Patient/Family are encouraged to report perceived risks to care and to ask questions if they do not understand what they are told or what they should do.
[2022-03-27 16:01] LABS: Lactic Acid 5.8 mmol/L (0.7-2.0)
[2022-03-27 16:07] LABS: Troponin I 0.715 ng/mL (0.000-0.034)
[2022-03-27 16:20] LABS: Glucose Point of Care 176 mg/dl (65-105)
--- NOTE | 2022-03-27 16:20 | PM.CNNEP ---
Assessment and Plan Assessment and plan (1) End stage renal disease: Code(s): N18.6 - End stage renal disease Status: Chronic Assessment and Plan: resume CCPD tonight will try to be more aggressive with fluid removal as tolerated follow electrolytes, volume status, and clearance (2) Pneumonia: Code(s): J18.9 - Pneumonia, unspecified organism Status: Acute Assessment and Plan: as suggested by admission imaging follow culture data started on antibiotics continue supportive therapy (3) Pleural effusion: Code(s): J90 - Pleural effusion, not elsewhere classified Status: Acute Assessment and Plan: as demonstrated by imaging trial of IV lasix more aggressive peritoneal dialysis to be initiated tonight agree with possible need for thoracentesis if conservative therapy fails (4) (HFpEF) heart failure with preserved ejection fraction: Qualifiers: Heart failure chronicity: acute Qualified Code(s): I50.31 - Acute diastolic (congestive) heart failure Code(s): I50.30 - Unspecified diastolic (congestive) heart failure Status: Chronic Assessment and Plan: known diastolic heart failure likely worsened by evidence of volume overload push fluid removal with peritoneal dialysis as well as IV diuretics as tolerated by hemodynamics (5) Anemia: Code(s): D64.9 - Anemia, unspecified Status: Chronic Assessment and Plan: due to ESRD as well as acute illness start Epogen 3x/week while hospitalized follow trend of H/H (6) Diabetes: Code(s): E11.9 - Type 2 diabetes mellitus without complications Status: Acute Assessment and Plan: follow accuchecks glycemic control Will continue to follow. History of Present Illness Reason for Consult Consult date: 03/28/22 Reason for consult: end stage renal disease Chief Complaint Chief complaint: pneumonia,pleural effusions,pulm edema,elevated tr History of Present Illness Narrative: The patient is a 76-year-old male with a past medical history as outlined below who presented to [facility] Emergency room with complaints of persistent cough and shortness of breath. The patient reports for the last several days he has had issues and problems with relatively low blood pressure. His primary or nurse manager discontinued all of his antihypertensive medications in effort to try to treat this problem. More recently, he has noticed an ongoing cough that seems quite persistent although it is not associated with any fever or chills. He has also noticed that his breathing is not at baseline. He has noticed increased lower extremity edema and difficulty catching his breath. Because of the persistence of the symptoms, he came to the emergency room for further evaluation and therapy. Workup and evaluation emergency room did demonstrate the patient be relatively hypotensive but asymptomatic. He was able to maintain his oxygen saturations on room air but still felt that he was having some difficulty breathing. He also reports poor appetite for last several days. Routine blood test demonstrated a CBC with relative anemia consistent with his baseline disease in association with a mildly elevated white blood cell count of 12.9. Chemistry results were consistent with his known history of end-stage renal disease although his liver function tests as well as lactic acid wore somewhat higher than normal. His BNP was greater than 35,000 and his chest x-ray and CT scan of his chest demonstrated findings consistent with volume overload with bilateral pleural effusions as well as pneumonia. COVID testing was negative as well. Given these findings, appropriate cultures were obtained and he was started on broad-spectrum IV antibiotic therapy and subsequently admitted to the hospital for further evaluation and therapy. Renal consultation was requested due to his end-stage re
--- NOTE | 2022-03-27 16:44 | PM.CNCAR ---
Assessment and Plan Assessment and plan (1) Elevated troponin: Code(s): R77.8 - Other specified abnormalities of plasma proteins Status: Acute Assessment and Plan: No chest discomfort or ischemic changes. Troponin elevation is likely due to his chronic kidney disease superimposed on chronic heart problems. No evidence of ACS (2) CAD (coronary artery disease): Qualifiers: Associated angina: without angina Coronary Disease-Associated Artery/Lesion type: [place] artery [place] vs. transplanted heart: [place] heart Qualified Code(s): I25.10 - Atherosclerotic heart disease of [place] coronary artery without angina pectoris Code(s): I25.10 - Atherosclerotic heart disease of [place] coronary artery without angina pectoris Status: Acute Assessment and Plan: History of CAD, stable Continue Eliquis Hold atorvastatin until LFTs improved. (3) (HFpEF) heart failure with preserved ejection fraction: Qualifiers: Heart failure chronicity: acute Qualified Code(s): I50.31 - Acute diastolic (congestive) heart failure Code(s): I50.30 - Unspecified diastolic (congestive) heart failure Status: Acute Assessment and Plan: Has diastolic heart failure due to volume overload related to his end-stage renal disease. Remove volume w/ dialysis. (4) Paroxysmal atrial fibrillation: Code(s): I48.0 - Paroxysmal atrial fibrillation Status: Acute Assessment and Plan: Was in sinus rhythm in December, now back in atrial fibrillation with a mildly increased heart rate, HR in 90's. Continue Eliquis and metoprolol, if blood pressure allows as BP running low. I am doubtful that the recurrent AFib is cause of his recent decline. (5) Volume overload: Code(s): E87.70 - Fluid overload, unspecified Status: Acute Assessment and Plan: Some mild volume overload related to problems with his peritoneal dialysis. Elevated lactic acid noted of uncertain etiology. Will be seen by Dr. Sevilla (6) Elevated LFTs: Code(s): R79.89 - Other specified abnormal findings of blood chemistry Status: Acute Assessment and Plan: Severely elevated LFTs. May be due to his volume overload Will re-check in a couple days. History of Present Illness History of Present Illness Consult date/time: 03/27/22 16:44 Reason For Visit: pneumonia,pleural effusions,pulm edema,elevated tr Narrative: Elias Aguirre is a 76-year-old male whom I was asked to see at the request of Dr. Salas for my advice and opinion regarding his elevated troponin, in consultation. Patient is followed by Dr. Green and has a history of CAD and history of coronary stent, diastolic CHF, and atrial fibrillation. He has history of moderate MR and mild aortic stenosis. The patient has been cardoverted twice, and he was was maintaining sinus rhythm when he last saw Dr. Green in December 2021. The patient has been on peritoneal dialysis since June. Recently he has been experiencing ?an abundance of fluid? for the last 2 weeks with a 10 lb weight gain and progressive dyspnea on exertion. He has noted increasing abdominal girth and some edema. His blood pressure has been running low, even off his blood pressure medicines and he has some lightheadedness. Despite changes in the dialysis fluid, he is not improving and he is being admitted for volume overload and volume management. He has had no chest pain or pressure, no palpitations. Review of Systems Constitutional: Constitutional: Denies fever(s) Eyes: Eyes: Reports no additional eye complaints ENT: Denies epistaxis Cardiovascular: Cardiovascular: Denies chest pain, Reports pedal edema, Reports lightheadedness and Reports dyspnea Respiratory: Respiratory: Denies chest congestion, Reports dyspnea and Reports dyspnea on exertion Gastrointestinal: Ga
[2022-03-27 18:27] LABS: Troponin I 0.763 ng/mL (0.000-0.034)
[2022-03-27] MEDS: APIXABAN 2.5 MG TABLET PO (20:09)
[2022-03-27] MEDS: IPRATROPIUM BR 0.02% INH SOLN 0.5 MG/2.5 ML VIAL INHALATION (20:34)
[2022-03-27] MEDS: ALBUTEROL SULFATE NEB 2.5 MG/3 ML INH INHALATION (20:34)
[2022-03-27 21:56] LABS: Source Peritoneal Fluid Peritoneal Fluid
[2022-03-27 21:57] LABS: Appearance Peritoneal Fluid Clear (Clear); Color Peritoneal Fluid Yellow (Colorless); Lymphocytes Peritoneal Fluid 14 %; Mesothelial Cells Peritoneal Fluid 4 %; Monocytes Peritoneal Fluid 54 %; Neutrophils Peritoneal Fluid 28 % (0-25); Nucleated Cells Peritoneal Flu 50 /uL (0-500); RBC Peritoneal Fluid 8 /uL (0-100000)
[2022-03-27 22:29] LABS: Glucose Point of Care 164 mg/dl (65-105)
[2022-03-28] VITALS (18 sets, daily range): BP systolic 94–116; BP diastolic 62–79; PULSE 79–109; RESP 16–22; TEMP 36.2–36.8; O2SAT 91–98
[2022-03-28] MEDS: IPRATROPIUM BR 0.02% INH SOLN 0.5 MG/2.5 ML VIAL INHALATION ×4 (03:04→20:56)
[2022-03-28] MEDS: ALBUTEROL SULFATE NEB 2.5 MG/3 ML INH INHALATION ×4 (03:04→20:56)
[2022-03-28] MEDS: LEVOTHYROXINE SODIUM 75 MCG TABLET PO (05:37)
[2022-03-28 05:47] LABS: Lactic Acid Reflex 3.3 mmol/L (0.7-2.0)
[2022-03-28 05:58] LABS: Albumin Level 3.5 g/dL (3.5-5.1); Alkaline Phosphatase 127 U/L (38-126); Anion Gap 18 mmol/L (8-16); Blood Urea Nitrogen 49 mg/dL (9-20); Calcium 8.2 mg/dL (8.4-10.2); Carbon Dioxide 25 mmol/L (22-30); Chloride 100 mmol/L (98-107); Estimated CRCL calculation 7 ml/min; Estimated Glomerular Filt Rate 6; Glucose 252 mg/dL (65-110); Lipase 362 U/L (23-300); Magnesium 2.1 mg/dL (1.6-2.3); Phosphorus 8.5 mg/dL (2.5-4.5); Potassium 3.6 mmol/L (3.4-5.0); Sodium 143 mmol/L (137-145)
[2022-03-28 06:30] LABS: Hemoglobin A1C 5.9 % (<5.7)
[2022-03-28 06:34] LABS: Alanine Aminotransferase 1106 U/L (6-50); Aspartate Amino Transferase 939 U/L (17-59)
[2022-03-28 06:48] LABS: Thyroid Stimulating Hormone Reflex < 0.015 uIU/mL (0.465-4.68)
[2022-03-28 06:51] LABS: Hepatitis B Surface Antigen Negative (Negative)
[2022-03-28 08:28] LABS: Reflex Lactic Acid Yes or No Add Lactic
[2022-03-28] MEDS: calcitrioL 0.25 MCG CAPSULE PO (08:34)
[2022-03-28 08:35] LABS: Glucose Point of Care 139 mg/dl (65-105)
[2022-03-28] MEDS: FUROSEMIDE INJ 40 MG/4 ML VIAL IV PUSH ×2 (08:35→18:02)
[2022-03-28] MEDS: POTASSIUM CHLORIDE 20 MEQ TABLET.ER PO (08:35)
[2022-03-28] MEDS: APIXABAN 2.5 MG TABLET PO ×2 (08:35→20:43)
[2022-03-28] MEDS: METOPROLOL SUCCINATE EXT REL 25 MG TABCR PO (08:35)
[2022-03-28 09:25] LABS: Hepatitis B Surface Anti Res Positive
[2022-03-28 10:03] LABS: Free T4 Free Thyroxine Reflex 3.47 ng/dL (0.78-2.19)
--- NOTE | 2022-03-28 10:42 | P.PNCA_ITS ---
Progress Note: A&P Assessment and Plan (1) Elevated troponin: Code(s): R77.8 - Other specified abnormalities of plasma proteins Status: Acute Assessment and Plan: * No chest discomfort or ischemic changes. * Troponin elevation is likely due to his chronic kidney disease superimposed on chronic heart problems. * No evidence of ACS (2) CAD (coronary artery disease): Qualifiers: Associated angina: without angina Coronary Disease-Associated Artery/Lesion type: [place] artery [place] vs. transplanted heart: [place] heart Qualified Code(s): I25.10 - Atherosclerotic heart disease of [place] coronary artery without angina pectoris Code(s): I25.10 - Atherosclerotic heart disease of [place] coronary artery without angina pectoris Status: Acute Assessment and Plan: History of CAD, stable * Continue Eliquis * Hold atorvastatin until LFTs improved. (3) (HFpEF) heart failure with preserved ejection fraction: Qualifiers: Heart failure chronicity: acute Qualified Code(s): I50.31 - Acute diastolic (congestive) heart failure Code(s): I50.30 - Unspecified diastolic (congestive) heart failure Status: Chronic Assessment and Plan: * Has diastolic heart failure due to volume overload related to his end-stage renal disease. * Remove volume w/ dialysis. * Also receiving IV furosemide (4) Paroxysmal atrial fibrillation: Code(s): I48.0 - Paroxysmal atrial fibrillation Status: Acute Assessment and Plan: * Was in sinus rhythm in December, now back in atrial fibrillation with a mildly increased heart rate, HR in 90's. * Continue Eliquis and metoprolol (As BP permits) (5) Volume overload: Code(s): E87.70 - Fluid overload, unspecified Status: Acute Assessment and Plan: * Some mild volume overload related to problems with his peritoneal dialysis. * Elevated lactic acid noted of uncertain etiology. * Nephrology following (6) Elevated LFTs: Code(s): R79.89 - Other specified abnormal findings of blood chemistry Status: Acute Assessment and Plan: Severely elevated LFTs. * May be due to his volume overload * Will re-check in a couple days. Subjective Date/time seen: 03/28/22 10:42 Cardiology follow up for CAD, A fib, CHF States that he had some issues breathing last but but improved after breathing treatment. No chest pain or palpitations. No other complaints. Review of Systems Constitutional: Constitutional: Denies fever(s) Eyes: Eyes: Reports no additional eye complaints ENT: Denies epistaxis Cardiovascular: Cardiovascular: Denies chest pain, Reports pedal edema, Reports lightheadedness, Reports dyspnea and Reports dyspnea on exertion Respiratory: Respiratory: Denies chest congestion, Reports dyspnea and Reports dyspnea on exertion Gastrointestinal: Gastrointestinal: Denies abdominal pain and Denies hematochezia Genitourinary: Genitourinary: Reports no additional male genitourinary complaints Musculoskeletal: Musculoskeletal: Reports no additional musculoskeletal complaints Integumentary/Breasts: Skin/Breast: Reports system reviewed and no additional complaints, except as docu Neurologic: Reports system reviewed and no additional complaints, except as documented, Denies behavioral changes and Denies confusion Psychiatric: Psychiatric: Denies behavioral changes and Denies confus
--- NOTE | 2022-03-28 10:42 | PM.PNCARD ---
Progress Note: A&P Assessment and Plan (1) Elevated troponin: Code(s): R77.8 - Other specified abnormalities of plasma proteins Status: Acute Assessment and Plan: No chest discomfort or ischemic changes. Troponin elevation is likely due to his chronic kidney disease superimposed on chronic heart problems. No evidence of ACS (2) CAD (coronary artery disease): Qualifiers: Associated angina: without angina Coronary Disease-Associated Artery/Lesion type: [place] artery [place] vs. transplanted heart: [place] heart Qualified Code(s): I25.10 - Atherosclerotic heart disease of [place] coronary artery without angina pectoris Code(s): I25.10 - Atherosclerotic heart disease of [place] coronary artery without angina pectoris Status: Acute Assessment and Plan: History of CAD, stable Continue Eliquis Hold atorvastatin until LFTs improved. (3) (HFpEF) heart failure with preserved ejection fraction: Qualifiers: Heart failure chronicity: acute Qualified Code(s): I50.31 - Acute diastolic (congestive) heart failure Code(s): I50.30 - Unspecified diastolic (congestive) heart failure Status: Chronic Assessment and Plan: Has diastolic heart failure due to volume overload related to his end-stage renal disease. Remove volume w/ dialysis. Also receiving IV furosemide (4) Paroxysmal atrial fibrillation: Code(s): I48.0 - Paroxysmal atrial fibrillation Status: Acute Assessment and Plan: Was in sinus rhythm in December, now back in atrial fibrillation with a mildly increased heart rate, HR in 90's. Continue Eliquis and metoprolol (As BP permits) (5) Volume overload: Code(s): E87.70 - Fluid overload, unspecified Status: Acute Assessment and Plan: Some mild volume overload related to problems with his peritoneal dialysis. Elevated lactic acid noted of uncertain etiology. Nephrology following (6) Elevated LFTs: Code(s): R79.89 - Other specified abnormal findings of blood chemistry Status: Acute Assessment and Plan: Severely elevated LFTs. May be due to his volume overload Will re-check in a couple days. Subjective Date/time seen: 03/28/22 10:42 Cardiology follow up for CAD, A fib, CHF States that he had some issues breathing last but but improved after breathing treatment. No chest pain or palpitations. No other complaints. Review of Systems Constitutional: Constitutional: Denies fever(s) Eyes: Eyes: Reports no additional eye complaints ENT: Denies epistaxis Cardiovascular: Cardiovascular: Denies chest pain, Reports pedal edema, Reports lightheadedness, Reports dyspnea and Reports dyspnea on exertion Respiratory: Respiratory: Denies chest congestion, Reports dyspnea and Reports dyspnea on exertion Gastrointestinal: Gastrointestinal: Denies abdominal pain and Denies hematochezia Genitourinary: Genitourinary: Reports no additional male genitourinary complaints Musculoskeletal: Musculoskeletal: Reports no additional musculoskeletal complaints Integumentary/Breasts: Skin/Breast: Reports system reviewed and no additional complaints, except as docu Neurologic: Reports system reviewed and no additional complaints, except as documented, Denies behavioral changes and Denies confusion Psychiatric: Psychiatric: Denies behavioral changes and Denies confusion Exam Const: General: cooperative and comfortable; No confusion Orientation/consciousness: oriented to person, patient oriented x3 and No confusion HENMT: Mouth: Yes moist mucous membranes Eyes: EOM: EOMs intact bilaterally Neck: Neck: supple Thyroid: thyroid normal Carotids: no bruits Resp: Effort & Inspection: normal respiratory effort Auscultation: clear to auscultation bilaterally Cardio: Rate: regular rate Rhythm: regular rhythm and abnormal rhy
[2022-03-28 12:36] LABS: Glucose Point of Care 115 mg/dl (65-105)
--- NOTE | 2022-03-28 12:39 | PM.IMPN ---
Progress Note: A&P Assessment and Plan (1) Pleural effusion: Code(s): J90 - Pleural effusion, not elsewhere classified Status: Acute (2) Pneumonia: Code(s): J18.9 - Pneumonia, unspecified organism Status: Acute (3) Elevated troponin I level: Code(s): R77.8 - Other specified abnormalities of plasma proteins Status: Acute (4) Elevated liver enzymes: Code(s): R74.8 - Abnormal levels of other serum enzymes Status: Acute (5) Anemia of chronic disease: Code(s): D63.8 - Anemia in other chronic diseases classified elsewhere Status: Acute (6) Type 2 diabetes mellitus with diabetic nephropathy: Qualifiers: Diabetes mellitus exterminator termite insulin use: without [facility] use Qualified Code(s): E11.21 - Type 2 diabetes mellitus with diabetic nephropathy Code(s): E11.21 - Type 2 diabetes mellitus with diabetic nephropathy Status: Chronic (7) CKD (chronic kidney disease): Code(s): N18.9 - Chronic kidney disease, unspecified Status: Acute (8) Hypothyroidism: Qualifiers: Hypothyroidism type: acquired Qualified Code(s): E03.9 - Hypothyroidism, unspecified Code(s): E03.9 - Hypothyroidism, unspecified Status: Acute Assessment and Plan: (9) Hypercholesteremia: Code(s): E78.00 - Pure hypercholesterolemia, unspecified Status: Acute (10) CHF (congestive heart failure): Code(s): I50.9 - Heart failure, unspecified Status: Acute (11) Paroxysmal atrial fibrillation: Code(s): I48.0 - Paroxysmal atrial fibrillation Status: Acute (12) Hypertension: Qualifiers: Hypertension type: essential hypertension Qualified Code(s): I10 - Essential (primary) hypertension Code(s): I10 - Essential (primary) hypertension Status: Chronic Plan # pleural effusion moderately large right greater than left with bilateral lower lung infiltrate, compressive atelectasis. Likely fluid overloaded. Given Lasix consider thoracentesis however patient anticoagulation will need to be held approximately 24 hours prior to procedure. Currently on room air. Volume overloaded. Aggressive dialysis along with diuresis Peritoneal fluid was obtained and culture has been sent. # pneumonia started on Rocephin and azithromycin for community-acquired pneumonia protocol. Sputum culture and other cultures sent. Lactic acid is elevated. COVID is negative. Bronchodilators # elevated lactic acid unclear etiology. Could be pneumonia related. Continue to follow. Respiratory culture with mixed bacterial caleb. Blood culture x2 no growth to date continue to monitor. # elevated troponin is likely related to underlying renal failure and congestive heart failure no chest pain. # elevated liver enzymes could be related to passive congestion from CHF. Monitor liver enzymes daily. Hold statin. Continues to worsen. Also has elevated lipase level. Will do right upper quadrant ultrasound. # anemia chronic disease related to CKD monitor counts no active signs of bleeding # type 2 diabetes mellitus with diabetic nephropathy: Recently off diabetes medication lost weight. Continue monitor Accu-Cheks AC and HS # coronary artery disease status post stent # moderate mitral regurgitation/mild aortic stenosis # end-stage renal disease on peritoneal dialysis since June 2021 Peritoneal dialysis catheter intact. Nephrology consulted # hypothyroidism TSH is low will hold levothyroxine # hyperlipidemia statin on hold due to elevated liver enzyme # congestive heart failure diastolic with preserved ejection fraction. IV diuresis acute on chronic for # paroxysmal atrial fibrillation status post cardioversion x2 in the past. Remains in sinus rhythm. On Eliquis. Back in atrial fibrillation with mild RVR. # hypertension blood pressure is borderline metoprolol with hold parameters. # DVT prophylaxis on Eliquis # code st
[2022-03-28] MEDS: ONDANSETRON INJ 4 MG/2 ML VIAL IV PUSH (13:42)
--- NOTE | 2022-03-28 14:51 | PC.NURSE ---
Spoke with Dr. Corrales regarding patient being nauseated. Pt received 4mg Zofran IVP at 1342. Pt still not feeling well. New order for Reglan 5mg IVP x1.
[2022-03-28] MEDS: METOCLOPRAMIDE HCL INJ 10 MG/2 ML VIAL 5 MG IV PUSH (15:10)
--- NOTE | 2022-03-28 15:53 | PM.PNNEP ---
Progress Note: A&P Assessment and Plan (1) End stage renal disease: Code(s): N18.6 - End stage renal disease Status: Chronic Assessment and Plan: continue CCPD nightly continue to be more aggressive with fluid removal as tolerated follow electrolytes, volume status, and clearance (2) Pneumonia: Code(s): J18.9 - Pneumonia, unspecified organism Status: Acute Assessment and Plan: as suggested by admission imaging follow culture data on antibiotics continue supportive therapy (3) Pleural effusion: Code(s): J90 - Pleural effusion, not elsewhere classified Status: Acute Assessment and Plan: also as demonstrated by imaging continue IV lasix for now more aggressive peritoneal dialysis as tolerated agree with possible need for thoracentesis if conservative therapy fails (4) (HFpEF) heart failure with preserved ejection fraction: Qualifiers: Heart failure chronicity: acute Qualified Code(s): I50.31 - Acute diastolic (congestive) heart failure Code(s): I50.30 - Unspecified diastolic (congestive) heart failure Status: Chronic Assessment and Plan: known diastolic heart failure likely worsened by evidence of volume overload push fluid removal with peritoneal dialysis as well as IV diuretics as tolerated by hemodynamics (5) Anemia: Code(s): D64.9 - Anemia, unspecified Status: Chronic Assessment and Plan: due to ESRD as well as acute illness start Epogen 3x/week while hospitalized follow trend of H/H (6) Diabetes: Code(s): E11.9 - Type 2 diabetes mellitus without complications Status: Acute Assessment and Plan: follow accuchecks glycemic control Will continue to follow. Subjective Date/time seen: 03/28/22 15:53 Tolerated peritoneal dialysis treatment last night without any issues or problems -- fluid removal/ultrafiltration was approximately 2300cc; breathing seems to be doing a bit better; still with issues relating to nausea and vomiting; no other apparent events overnight or earlier this AM. Exam Narrative: General: WD/WN male in NAD Heart: normal S1 and S2; no rub Lungs: decreased breath sounds at the bases Abdomen: soft, nontender, nondistended, positive bowel sounds Extremities: no cyanosis or clubbing; trace edema Skin: warm and dry Objective Data Vital Signs Vital Signs: Vital Signs Temp Pulse Resp BP Pulse Ox O2 Del Method 03/28/22 15:06 98 20 03/28/22 14:58 96 20 03/28/22 12:00 Room Air 03/28/22 12:00 107 H 03/28/22 12:00 36.4 C 104 H 20 94/62 L 96 03/28/22 10:00 103 H 03/28/22 08:00 102 H 03/28/22 08:00 Room Air 03/28/22 09:19 102 H 20 03/28/22 09:02 96 20 03/28/22 09:02 93 Room Air 03/28/22 08:00 36.8 C 98 16 98/65 L 98 03/28/22 08:35 90 03/28/22 07:53 36.2 C L 90 16 116/79 03/28/22 04:00 90 16 94 Room Air 03/28/22 04:00 90 03/28/22 04:00 36.2 C L 90 16 116/79 94 03/28/22 03:15 84 20 03/28/22 03:04 79 20 03/28/22 02:00 87 03/28/22 00:00 36.3 C L 90 16 105/62 94 03/28/22 00:00 92 18 91 Room Air 03/28/22 00:00 101 H 03/27/22 22:00 92 03/27/22 20:00 117 H 03/27/22 20:00 71 18 91 Room Air 03/27/22 20:00 36.4 C 95 20 91/69 L 91 03/27/22 20:47 71 18 03/27/22 20:34 70 18 03/27/22 18:00 95 Intake/Output Intake/Output: Intake & Output 03/25/22 03/26/22 03/27/22 03/28/22 23:59 23:59 23:59 23:59 Intake Total 250 440 Output Total 2300 Balance 250 -1860 Meds/Results Medications: Active Medications Generic Name Dose Route Start Last Admin Trade Name Freq PRN Reason Stop Dose Admin Albuterol 2.5 mg 03/27/22 20:00 03/28/22 14:57 Albuterol Sulfate Neb 2.5 Mg/3 Ml Inh INHALATION 2.5 mg Q6HRT YING Admi
[2022-03-28 17:10] LABS: Glucose Point of Care 176 mg/dl (65-105)
[2022-03-28 20:31] LABS: Glucose Point of Care 213 mg/dl (65-105)
[2022-03-29] VITALS (21 sets, daily range): BP systolic 90–132; BP diastolic 64–85; PULSE 70–119; RESP 18–24; TEMP 35.8–37.1; O2SAT 93–96
[2022-03-29] MEDS: IPRATROPIUM BR 0.02% INH SOLN 0.5 MG/2.5 ML VIAL INHALATION ×4 (02:57→20:04)
[2022-03-29] MEDS: ALBUTEROL SULFATE NEB 2.5 MG/3 ML INH INHALATION ×4 (02:57→20:04)
[2022-03-29 05:05] LABS: Basophils Absolute Auto 0.1 K/mm3 (0.0-0.1); Basophils Percent Auto 0.5 % (0.2-1.2); Eosinophils Absolute Auto 0.1 K/mm3 (0-0.3); Eosinophils Percent Auto 0.6 % (0-4.4); Hematocrit 28.1 % (42.0-52.0); Hemoglobin 8.5 g/dL (14.0-18.0); Immature Granulocyte Absolute 0.17 K/mm3 (0.00-0.031); Immature Granulocyte Percent A 1.2 % (0-0.5); Lymphocytes Percent Auto 8.9 % (18.3-44.2); Mean Corpuscular HGB Conc 30.2 g/dl (32-36); Mean Corpuscular Hemoglobin 33.2 pg (26-34); Mean Corpuscular Volume 109.8 fl (80-100); Mean Platelet Volume 11.9 fl (7.4-10.4); Monocytes Absolute Auto 1.2 K/mm3 (0.1-0.6); Neutrophils Absolute Auto 11.8 K/mm3 (1.3-6.7); Neutrophils Percent Auto 80.8 % (45.5-73.1); Nucleated Red Blood Cells Absolute Auto 0.1 K/mm3 (0.0-0.012); Nucleated Red Blood Cells Perc 0.9 % (0.0-0.2); Platelet Count Result 131 k/mm3 (150-375); Red Blood Count 2.56 M/mm3 (4.6-6.20); White Blood Count 14.7 K/mm3 (4.5-10.0)
[2022-03-29 05:14] LABS: Lactic Acid Reflex 4.7 mmol/L (0.7-2.0)
[2022-03-29 05:21] LABS: Albumin Level 3.5 g/dL (3.5-5.1); Alkaline Phosphatase 115 U/L (38-126); Anion Gap 19 mmol/L (8-16); Bilirubin,Total 1.2 mg/dL (0.2-1.3); Blood Urea Nitrogen 51 mg/dL (9-20); Calcium 8.5 mg/dL (8.4-10.2); Carbon Dioxide 21 mmol/L (22-30); Chloride 99 mmol/L (98-107); Estimated CRCL calculation 7 ml/min; Estimated Glomerular Filt Rate 6; Glucose 154 mg/dL (65-110); Lipase 399 U/L (23-300); Magnesium 2.2 mg/dL (1.6-2.3); Potassium 3.9 mmol/L (3.4-5.0); Sodium 139 mmol/L (137-145)
[2022-03-29 05:28] LABS: Alanine Aminotransferase 1371 U/L (6-50); Aspartate Amino Transferase 909 U/L (17-59)
[2022-03-29 05:33] LABS: Macrocytosis 1+ (NORMAL); Platelet Estimate Adequate (Adequate)
[2022-03-29 07:59] LABS: Reflex Lactic Acid Yes or No Add Lactic
[2022-03-29 08:41] LABS: Glucose Point of Care 124 mg/dl (65-105)
--- NOTE | 2022-03-29 09:29 | PM.IMPN ---
Progress Note: A&P Assessment and Plan (1) Pleural effusion: Code(s): J90 - Pleural effusion, not elsewhere classified Status: Acute (2) Pneumonia: Code(s): J18.9 - Pneumonia, unspecified organism Status: Acute (3) Elevated troponin I level: Code(s): R77.8 - Other specified abnormalities of plasma proteins Status: Acute (4) Elevated liver enzymes: Code(s): R74.8 - Abnormal levels of other serum enzymes Status: Acute (5) Anemia of chronic disease: Code(s): D63.8 - Anemia in other chronic diseases classified elsewhere Status: Acute (6) Type 2 diabetes mellitus with diabetic nephropathy: Qualifiers: Diabetes mellitus long term care pharmacist insulin use: without snf use Qualified Code(s): E11.21 - Type 2 diabetes mellitus with diabetic nephropathy Code(s): E11.21 - Type 2 diabetes mellitus with diabetic nephropathy Status: Chronic (7) CKD (chronic kidney disease): Code(s): N18.9 - Chronic kidney disease, unspecified Status: Acute (8) Hypothyroidism: Qualifiers: Hypothyroidism type: acquired Qualified Code(s): E03.9 - Hypothyroidism, unspecified Code(s): E03.9 - Hypothyroidism, unspecified Status: Acute Assessment and Plan: (9) Hypercholesteremia: Code(s): E78.00 - Pure hypercholesterolemia, unspecified Status: Acute (10) CHF (congestive heart failure): Code(s): I50.9 - Heart failure, unspecified Status: Acute (11) Paroxysmal atrial fibrillation: Code(s): I48.0 - Paroxysmal atrial fibrillation Status: Acute (12) Hypertension: Qualifiers: Hypertension type: essential hypertension Qualified Code(s): I10 - Essential (primary) hypertension Code(s): I10 - Essential (primary) hypertension Status: Chronic Plan # pleural effusion moderately large right greater than left with bilateral lower lung infiltrate, compressive atelectasis. Likely fluid overloaded, he has been started on iv lasix. with minimal output. he was taken off 2L via PD. with lactic acidosis worsening, could also be related to some hypovolemia along with worsening liver enzymes. will hold off any diuresis today. leukocytosis worsened as well. will need to plan for thoracentesis to rule out parapneumonic effusion as the etiology of the effusions. will order thoracentesis. need to hold eliquis for the planned procedure. Aggressive dialysis along with diuresis Peritoneal fluid was obtained and culture has been sent whic his reviewed adn no growth to date. # pneumonia started on Rocephin and azithromycin for community-acquired pneumonia protocol. Sputum culture and other cultures sent. Lactic acid is elevated. COVID is negative. Bronchodilators # elevated lactic acid unclear etiology. Could be pneumonia related. Continue to follow. Respiratory culture with mixed bacterial caleb. Blood culture x2 no growth to date continue to monitor. Will get ultrasound-guided thoracentesis to rule out parapneumonic effusion / empyema # elevated troponin is likely related to underlying renal failure and congestive heart failure no chest pain. # elevated liver enzymes could be related to passive congestion from CHF. Monitor liver enzymes daily. Hold statin. Continues to worsen. Also has elevated lipase level. Right upper quadrant ultrasound plan today Elevated liver enzyme continues to worsen. Could be shock liver due to dehydration/borderline blood pressure Hold off on IV diuresis Will consult GI # anemia chronic disease related to CKD monitor counts no active signs of bleeding # type 2 diabetes mellitus with diabetic nephropathy: Recently off diabetes medication lost weight. Continue monitor Accu-Cheks AC and HS # coronary artery disease status post stent # moderate mitral regurgitation/mild aortic stenosis # end-stage renal disease on peritoneal dialysis since July 07
--- NOTE | 2022-03-29 09:42 | PM.PNCARD ---
Progress Note: A&P Assessment and Plan (1) End stage renal disease: Code(s): N18.6 - End stage renal disease Status: Chronic (2) Elevated troponin: Code(s): R77.8 - Other specified abnormalities of plasma proteins Status: Acute Plan 76-year-old man with modestly elevated troponin this is related to his renal disease/not in acute coronary syndrome. Cardiac follow-up for this gentleman is already scheduled with my partner in the office. We will sign off of his inpatient care at this time. Please contact if our assistance is needed in any way Efren Brooks MD [facility] Subjective Date/time seen: Date of service: 03/29/22 09:42 Interval history: Follow-up visit in this 76-year-old man with: Coronary and valvular heart disease. Patient also has end-stage renal disease and is being treated with peritoneal dialysis since last . Enters the hospital with some volume overload and troponin levels were modestly elevated. Pattern of troponin elevation is consistent with his renal disease there is no other evidence to suggest acute coronary syndrome. He feels well this morning and states that his breathing has gotten a little bit better with extra dialysis. Still has some chest congestion and occasional coughing. Exam Const: General: comfortable and no acute distress HENMT: Mouth: Yes moist mucous membranes Eyes: Sclera: sclerae normal Neck: Neck: supple and no JVD Resp: Auscultation: clear to auscultation bilaterally Other: No rales no rhonchi, slightly dull at the bases Cardio: Rate: regular rate Rhythm: regular rhythm Other: Soft systolic murmur does not radiate from the base GI: GI Palp: Yes Soft to palpation Auscultation: normal bowel sounds Skin: General skin exam: normal color Neuro: Other: Alert and oriented normal mentation Objective Data Vital Signs Vital Signs: Vital Signs - 24 hr 03/28/22 10:00 03/28/22 12:00 03/28/22 12:00 Temperature 36.4 C Pulse Rate 103 H 104 H 107 H Respiratory Rate 20 Blood Pressure 94/62 L Pulse Oximetry 96 Oxygen Delivery 03/28/22 12:00 03/28/22 14:58 03/28/22 15:06 Temperature Pulse Rate 96 98 Respiratory Rate 20 20 Blood Pressure Pulse Oximetry Oxygen Delivery Room Air 03/28/22 16:00 03/28/22 16:00 03/28/22 20:59 Temperature 36.6 C Pulse Rate 109 H 97 Respiratory Rate 22 H Blood Pressure 111/66 Pulse Oximetry 94 95 Oxygen Delivery Room Air 03/28/22 20:59 03/28/22 20:00 03/29/22 00:00 Temperature 37.1 C Pulse Rate 89 101 H 119 H Respiratory Rate 20 20 Blood Pressure 90/71 L Pulse Oximetry 95 Oxygen Delivery 03/29/22 00:00 03/29/22 02:58 03/28/22 21:18 Temperature Pulse Rate 99 105 H 93 Respiratory Rate 18 20 Blood Pressure Pulse Oximetry Oxygen Delivery 03/29/22 04:00 03/29/22 07:53 03/29/22 08:00 Temperature 37.1 C 35.8 C L Pulse Rate 100 100 70 Respiratory Rate 18 20 Blood Pressure 90/71 L 100/64 Pulse Oximetry 93 Oxygen Delivery 03/29/22 08:16 03/29/22 08:19 03/29/22 08:25 Temperature Pulse Rate 102 H 99 103 H Respiratory Rate 20 20 18 Blood Pressure Pulse Oximetry 94 Oxygen Delivery Room Air 03/29/22 08:00 03/29/22 08:00 Temperature Pulse Rate 108 H Respiratory Rate Blood Pressure Pulse Oximetry Oxygen Delivery Room Air Intake/Output Intake/Output: Intake & Output 03/26/22 03/27/22 03/28/22 03/29/22 23:59 23:59 23:59 23:59 Intake Total 250 440 Output Total 2300 246 Balance 250 -1860 -246 Meds/Results Medications: Active Medications Generic Name Dose Route Start Last Admin Trade Name Faith PRN Reason Stop Dose Admin Albuterol 2.5 mg 03/27/22 20:00 03/29/22 08:16 Albuterol Sulfate Neb 2.5 Mg/3 Ml Inh INHALATION 2.5 mg Q6HRT YING Administration Apixaban 2.5 mg 03/27/22 21:00 03/28/22 20:43 Apixaban 2.5 Mg Tablet PO 2.5 mg Q12HR S
[2022-03-29] MEDS: METOPROLOL SUCCINATE EXT REL 25 MG TABCR PO (10:09)
[2022-03-29] MEDS: calcitrioL 0.25 MCG CAPSULE PO (10:10)
[2022-03-29] MEDS: POTASSIUM CHLORIDE 20 MEQ TABLET.ER PO (10:10)
[2022-03-29] MEDS: EPOETIN ALFA-EPBX 20,000 UNITS/ML VIAL 20000 UNITS SUB-Q (11:24)
--- NOTE | 2022-03-29 12:11 | WPDGICN ---
Assessment and Plan Assessment and plan (1) Elevated liver enzymes: Code(s): R74.8 - Abnormal levels of other serum enzymes Status: Acute Assessment and Plan: The sudden dramatic increase in liver enzymes along with elevated lactic acid level suggests ischemic hepatopathy, ( shock liver) apparently his blood pressure was soft and antihypertensive medications have been reduced. The patient states that he actually stop some of them himself and his nephrology discontinued the others last week because the blood pressure was quite low. Even today his systolic blood pressure is running around the 90s I told that there is no specific treatment for his elevated liver enzymes. He denies use of alcohol or of acetaminophen. I would suspect that the transaminases will begin to come down over the next couple of days. Also follow his bilirubin to watch for signs of hepatic failure (2) End stage renal disease: Code(s): N18.6 - End stage renal disease Status: Chronic Assessment and Plan: he has been on peritoneal dialysis for some time, supposedly diabetic nephropathy (3) Elevated troponin: Code(s): R77.8 - Other specified abnormalities of plasma proteins Status: Acute Assessment and Plan: cardiology has seen him and feels that the troponin levels are not related to cardiac issues (4) Diabetes: Code(s): E11.9 - Type 2 diabetes mellitus without complications Status: Acute Assessment and Plan: he has been insulin dependent. He has diabetic nephropathy (5) Pleural effusion: Code(s): J90 - Pleural effusion, not elsewhere classified Status: Acute Assessment and Plan: likely due to fluid overload. Thoracentesis is scheduled. Diuretics are being held. He was receiving diuresis however the soft blood pressure indicates that we should hold off on aggressive diuresis. (6) Hypotension: Code(s): I95.9 - Hypotension, unspecified Status: Acute Assessment and Plan: although he is normally hypertensive, his blood pressure has been soft and low since hospitalization and he states that it was apparently even lower when he was taken off of his blood pressure medications a week ago. This had think is the most probable reason for his shock liver, ischemic hepatopathy. GI Consult Note Consult date/time: 03/29/22 12:11 HPI: Elias Aguirre is a 76 year old male with multiple medical complaints including chronic kidney disease, congestive heart failure, atrial fibrillation for which she has been on Eliquis. He has been found to have a marked elevation of his liver enzymes. They were normal last fall but on admission a LT was 657 and today it is up to 1371. Lactic acid level is also elevated. he had begun to feel bad a couple of weeks ago with discomfort in his mid to lower abdomen, across the abdomen at the level of his dialysis catheter. He did not have a fever or chills. He has been nauseated and seems to have lost his appetite. He wondered if he may be developing an ulcer as he has had 1 sometime in the past. Paracentesis fluid was sent for culture and is negative so far. He has a pleural effusion and that will be sampled by thoracentesis tomorrow. He has been on Eliquis and consequently this needed to be held for the procedure. He has never had liver disease in the past he has never had jaundice or hepatitis to his knowledge. Review of Systems Review of Systems: All systems reviewed & are unremarkable except as noted in HPI and below PMFSH Past Medical History Medical History Anemia of chronic disease Arthritis Cataracts, bilateral Maturing Chronic kidney disease, stage 5 Chronic kidney disease, stage V Coronary artery disease History of non STEMI in May 2018 status post drug-eluting stent to the LAD. 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 mcc anticoagulation Diverticular hemorrhage
[2022-03-29 12:19] LABS: Glucose Point of Care 246 mg/dl (65-105)
[2022-03-29] MEDS: MORPHINE SULFATE (*CRX) 2 MG/ML INJ IV PUSH ×2 (12:45→18:48)
--- NOTE | 2022-03-29 14:03 | PM.PNNEP ---
Progress Note: A&P Assessment and Plan (1) End stage renal disease: Code(s): N18.6 - End stage renal disease Status: Chronic Assessment and Plan: continue CCPD nightly continue to be more aggressive with fluid removal as tolerated follow electrolytes, volume status, and clearance (2) Pneumonia: Code(s): J18.9 - Pneumonia, unspecified organism Status: Acute Assessment and Plan: as suggested by admission imaging follow culture data on antibiotics continue supportive therapy (3) Pleural effusion: Code(s): J90 - Pleural effusion, not elsewhere classified Status: Acute Assessment and Plan: also as demonstrated by imaging on presentation more aggressive peritoneal dialysis as tolerated agree with possible need for thoracentesis - possibly tomorrow (4) (HFpEF) heart failure with preserved ejection fraction: Qualifiers: Heart failure chronicity: acute Qualified Code(s): I50.31 - Acute diastolic (congestive) heart failure Code(s): I50.30 - Unspecified diastolic (congestive) heart failure Status: Chronic Assessment and Plan: known diastolic heart failure likely worsened by evidence of volume overload push fluid removal with peritoneal dialysis as well as IV diuretics as tolerated by hemodynamics (5) Anemia: Code(s): D64.9 - Anemia, unspecified Status: Chronic Assessment and Plan: due to ESRD as well as acute illness on Epogen 3x/week while hospitalized follow trend of H/H (6) Diabetes: Code(s): E11.9 - Type 2 diabetes mellitus without complications Status: Acute Assessment and Plan: follow accuchecks glycemic control Will continue to follow. Subjective Date/time seen: 03/29/22 14:03 Tolerated peritoneal dialysis treatment last night without any issues or problems although ultrafiltration was limited (only 249cc fluid removal); however, CXR looks better; no other acute issues voiced at the time of my visit other than non-specfic pain which was relieved with morphine. Exam Narrative: General: WD/WN male in NAD Heart: normal S1 and S2; no rub Lungs: decreased breath sounds at the bases Abdomen: soft, nontender, nondistended, positive bowel sounds Extremities: no cyanosis or clubbing; trace edema Skin: warm and intact Objective Data Vital Signs Vital Signs: Vital Signs Temp Pulse Resp BP Pulse Ox O2 Del Method 03/29/22 12:00 116 H 03/29/22 12:25 35.9 C L 70 24 H 117/76 0812/22 10:09 108 H 03/29/22 08:00 108 H 03/29/22 08:00 Room Air 03/29/22 08:25 103 H 18 03/29/22 08:19 99 20 94 Room Air 03/29/22 08:16 102 H 20 03/29/22 08:00 35.8 C L 70 20 100/64 93 03/29/22 07:53 37.1 C 100 18 90/71 L 03/29/22 04:00 100 03/28/22 21:18 93 20 03/29/22 02:58 105 H 18 03/29/22 00:00 99 03/29/22 00:00 37.1 C 119 H 20 90/71 L 95 03/28/22 20:00 101 H 03/28/22 20:59 89 20 03/28/22 20:59 95 Room Air 03/28/22 16:00 97 03/28/22 16:00 36.6 C 109 H 22 H 111/66 94 03/28/22 15:06 98 20 Intake/Output Intake/Output: Intake & Output 03/26/22 03/27/22 03/28/22 03/29/22 23:59 23:59 23:59 23:59 Intake Total 250 440 Output Total 2300 246 Balance 250 -1860 -246 Meds/Results Medications: Active Medications Generic Name Dose Route Start Last Admin Trade Name Chaceq PRN Reason Stop Dose Admin Albuterol 2.5 mg 03/27/22 20:00 03/29/22 14:42 Albuterol Sulfate Neb 2.5 Mg/3 Ml Inh INHALATION 2.5 mg Q6HRT YING Administration Apixaban 2.5 mg 03/27/22 21:00 03/29/22 10:14 Apixaban 2.5 Mg Tablet PO Not Given Q12HR YING Calcitriol 0.25 mcg 03/28/22 09:00 03/29/22 10:10 Calcitriol 0.25 Mcg Capsule PO 0.25 mcg DAILY YING Administration Dextrose 12.5 gm 03/27/22 15:44 Dextrose 50% 25 Gm
[2022-03-29 17:23] LABS: Glucose Point of Care 207 mg/dl (65-105)
[2022-03-30] VITALS (26 sets, daily range): BP systolic 93–126; BP diastolic 64–85; PULSE 65–128; RESP 12–20; TEMP 36.2–36.4; O2SAT 90–100
[2022-03-30] MEDS: ALBUTEROL SULFATE NEB 2.5 MG/3 ML INH INHALATION ×4 (02:12→20:40)
[2022-03-30] MEDS: IPRATROPIUM BR 0.02% INH SOLN 0.5 MG/2.5 ML VIAL INHALATION ×4 (02:12→20:42)
--- NOTE | 2022-03-30 02:22 | PCRCNOTE ---
Pt reports he is breathing much easier and deeper tonight after the breathing treatments and pulling the fluid off.
[2022-03-30 04:53] LABS: Basophils Percent Auto 0.2 % (0.2-1.2); Eosinophils Absolute Auto 0.1 K/mm3 (0-0.3); Eosinophils Percent Auto 0.4 % (0-4.4); Hematocrit 27.3 % (42.0-52.0); Hemoglobin 8.5 g/dL (14.0-18.0); Immature Granulocyte Absolute 0.19 K/mm3 (0.00-0.031); Immature Granulocyte Percent A 1.4 % (0-0.5); Lymphocytes Absolute Auto 0.85 K/mm3 (0.9-3.2); Mean Corpuscular HGB Conc 31.1 g/dl (32-36); Mean Corpuscular Volume 109.2 fl (80-100); Mean Platelet Volume 11.8 fl (7.4-10.4); Monocytes Absolute Auto 1.1 K/mm3 (0.1-0.6); Monocytes Percent Auto 7.5 % (2.6-8.5); Neutrophils Absolute Auto 11.9 K/mm3 (1.3-6.7); Neutrophils Percent Auto 84.5 % (45.5-73.1); Nucleated Red Blood Cells Absolute Auto 0.1 K/mm3 (0.0-0.012); Platelet Count Result 128 k/mm3 (150-375); Red Cell Distribution Width 15.2 % (11.5-14.5); White Blood Count 14.1 K/mm3 (4.5-10.0)
[2022-03-30 05:04] LABS: INR 3.1; Prothrombin Time 31.1 Seconds (11.1-14.7)
[2022-03-30 05:06] LABS: Lactic Acid Reflex 3.7 mmol/L (0.7-2.0)
[2022-03-30 05:11] LABS: Albumin Level 3.5 g/dL (3.5-5.1); Alkaline Phosphatase 105 U/L (38-126); Anion Gap 18 mmol/L (8-16); Aspartate Amino Transferase 739 U/L (17-59); Bilirubin,Total 0.8 mg/dL (0.2-1.3); Blood Urea Nitrogen 52 mg/dL (9-20); Calcium 8.3 mg/dL (8.4-10.2); Carbon Dioxide 24 mmol/L (22-30); Chloride 98 mmol/L (98-107); Estimated CRCL calculation 7 ml/min; Estimated Glomerular Filt Rate 6; Glucose 197 mg/dL (65-110); Magnesium 2.1 mg/dL (1.6-2.3); Sodium 140 mmol/L (137-145)
[2022-03-30 05:19] LABS: Alanine Aminotransferase 1415 U/L (6-50)
[2022-03-30 07:50] LABS: Reflex Lactic Acid Yes or No Add Lactic
[2022-03-30 07:50] LABS: Glucose Point of Care 163 mg/dl (65-105)
--- NOTE | 2022-03-30 08:20 | WPDGIPROGNO ---
Progress Note: A&P Assessment and Plan (1) Elevated liver enzymes: Code(s): R74.8 - Abnormal levels of other serum enzymes Status: Acute Assessment and Plan: The sudden dramatic increase in liver enzymes along with elevated lactic acid level suggests ischemic hepatopathy, ( shock liver) apparently his blood pressure was soft and antihypertensive medications have been reduced. The patient states that he actually stop some of them himself and his nephrology discontinued the others last week because the blood pressure was quite low. Even today his systolic blood pressure is running around the 90s I told that there is no specific treatment for his elevated liver enzymes. He denies use of alcohol or of acetaminophen. I would suspect that the transaminases will begin to come down over the next couple of days. Also follow his bilirubin to watch for signs of hepatic failure 03/30/2022 LFTs are not significantly changed. AST has come down to 739 but ALT increased slightly. Bilirubin remains normal. Elevated INR is a concern. He has not been on warfarin, there for this reflects his hepatopathy. I will give vitamin K. I explained to him how liver injury affects clotting factors and other synthetic and metabolic processes. (2) End stage renal disease: Code(s): N18.6 - End stage renal disease Status: Chronic Assessment and Plan: he has been on peritoneal dialysis for some time, supposedly diabetic nephropathy (3) Elevated troponin: Code(s): R77.8 - Other specified abnormalities of plasma proteins Status: Acute Assessment and Plan: cardiology has seen him and feels that the troponin levels are not related to cardiac issues (4) Diabetes: Code(s): E11.9 - Type 2 diabetes mellitus without complications Status: Acute Assessment and Plan: he has been insulin dependent. He has diabetic nephropathy (5) Pleural effusion: Code(s): J90 - Pleural effusion, not elsewhere classified Status: Acute Assessment and Plan: likely due to fluid overload. Thoracentesis is scheduled. Diuretics are being held. He was receiving diuresis however the soft blood pressure indicates that we should hold off on aggressive diuresis. 03/30/2022 thoracentesis on hold awaiting correction of coagulopathy. (6) Hypotension: Code(s): I95.9 - Hypotension, unspecified Status: Acute Assessment and Plan: although he is normally hypertensive, his blood pressure has been soft and low since hospitalization and he states that it was apparently even lower when he was taken off of his blood pressure medications a week ago. This had think is the most probable reason for his shock liver, ischemic hepatopathy. (7) Elevated lactic acid level: Code(s): R79.89 - Other specified abnormal findings of blood chemistry Status: Acute Assessment and Plan: This supports the impression that he has ischemic hepatopathy. initially lactic acid was elevated . Today's is normal which is refreshing. (8) Coagulopathy: Code(s): D68.9 - Coagulation defect, unspecified Status: Acute Assessment and Plan: his INR is increasing, 3.1 today. I will give him a dose of vitamin K. If he remains elevated, he would need FFP prior to thoracentesis Subjective Date/time seen: Elias Aguirre is a 76 year old male? with multiple medical complaints including chronic kidney disease, congestive heart failure, atrial fibrillation for which she has been on Eliquis.? He has been found to have a marked elevation of his liver enzymes.? They were normal last fall but on admission a LT was 657 and today it is up to 1371.? Lactic acid level is also elevated. ?he had begun to feel bad a couple of weeks ago with discomfort in his mid to lower abdomen,? across the abdomen at the level of his dialysis catheter.? He did not have a fever or chills.? He has been nauseated an
[2022-03-30] MEDS: POTASSIUM CHLORIDE 20 MEQ TABLET.ER PO (08:49)
[2022-03-30] MEDS: PHYTONADIONE 5 MG TABLET 10 MG PO (08:50)
[2022-03-30] MEDS: calcitrioL 0.25 MCG CAPSULE PO (08:50)
[2022-03-30] MEDS: EPOETIN ALFA-EPBX 10,000 UNITS/ML VIAL 10000 UNITS SUB-Q (08:50)
[2022-03-30 09:54] LABS: Lactic Acid 3.8 mmol/L (0.7-2.0)
[2022-03-30] MEDS: METOPROLOL SUCCINATE EXT REL 25 MG TABCR PO (10:16)
[2022-03-30 12:07] LABS: Glucose Point of Care 186 mg/dl (65-105)
--- NOTE | 2022-03-30 12:20 | PM.PNNEP ---
Progress Note: A&P Assessment and Plan (1) End stage renal disease: Code(s): N18.6 - End stage renal disease Status: Chronic Assessment and Plan: continue CCPD nightly will back off on aggressive fluid removal given soft BP and issues with his liver follow electrolytes, volume status, and clearance (2) Pneumonia: Code(s): J18.9 - Pneumonia, unspecified organism Status: Acute Assessment and Plan: as suggested by admission imaging follow culture data on antibiotics continue supportive therapy (3) Pleural effusion: Code(s): J90 - Pleural effusion, not elsewhere classified Status: Acute Assessment and Plan: also as demonstrated by imaging on presentation fluid removal with peritoneal dialysis as tolerated agree with possible need for thoracentesis - possibly tomorrow (4) (HFpEF) heart failure with preserved ejection fraction: Qualifiers: Heart failure chronicity: acute Qualified Code(s): I50.31 - Acute diastolic (congestive) heart failure Code(s): I50.30 - Unspecified diastolic (congestive) heart failure Status: Chronic Assessment and Plan: known diastolic heart failure likely worsened by evidence of volume overload fluid removal with peritoneal dialysis as tolerated by hemodynamics (5) Anemia: Code(s): D64.9 - Anemia, unspecified Status: Chronic Assessment and Plan: due to ESRD as well as acute illness on Epogen 3x/week while hospitalized follow trend of H/H (6) Elevated LFTs: Code(s): R79.89 - Other specified abnormal findings of blood chemistry Status: Acute Assessment and Plan: GI following presumed due to relative hypotension concerning the INR is rising... (7) Diabetes: Code(s): E11.9 - Type 2 diabetes mellitus without complications Status: Acute Assessment and Plan: follow accuchecks glycemic control Will continue to follow. Subjective Date/time seen: 03/30/22 12:20 Tolerated peritoneal dialysis treatment overnight with reasonable ultrafiltration/fluid removal but states he had problems with cramping (which may indicate we have reached a limit with ultrafiltration with CCPD); LFTs about the same but rising INR somewhat concerning; no other acute issues/events overnight or earlier this morning. Exam Narrative: General: WD/WN male in NAD Heart: normal S1 and S2; no rub Lungs: decreased breath sounds at the bases Abdomen: soft, nontender, nondistended, positive bowel sounds Extremities: no cyanosis or clubbing; trace edema Skin: no rash Objective Data Vital Signs Vital Signs: Vital Signs Temp Pulse Resp BP Pulse Ox O2 Del Method 03/30/22 12:07 36.3 C L 101 H 18 94/70 L 95 03/30/22 08:00 Room Air 03/30/22 10:16 104 H 03/30/22 09:55 102/76 03/30/22 08:00 36.3 C L 65 18 93/69 L 94 03/30/22 07:42 36.3 C L 90 20 115/85 03/30/22 07:52 77 12 03/30/22 07:37 72 12 03/30/22 04:00 90 03/30/22 02:26 98 20 03/30/22 02:14 100 20 03/30/22 02:00 106 H 03/30/22 00:09 108 H 03/29/22 23:31 36.3 C L 104 H 20 115/85 96 03/29/22 20:00 96 Room Air 03/29/22 20:00 108 H 03/29/22 20:18 101 H 18 03/29/22 20:08 94 Room Air 03/29/22 20:07 95 18 03/29/22 19:22 36.1 C L 103 H 20 132/82 96 03/29/22 17:31 37.1 C 74 20 93/65 L 95 03/29/22 16:00 89 03/29/22 14:53 90 18 03/29/22 14:43 96 18 Intake/Output Intake/Output: Intake & Output 03/27/22 03/28/22 03/29/22 03/30/22 23:59 23:59 23:59 23:59 Intake Total 250 440 660 320 Output Total 2300 446 1356 Balance 250 1860 214 1036 Meds/Results Medications: Active Medications Generic Name Dose Route Start Last Admin Trade Name Freq PRN Reason Stop Dose Admin Albuterol 2.5 mg 03/27/22 20:00 03/30/22 07:3
--- NOTE | 2022-03-30 12:20 | P.PNNP_ITS ---
Progress Note: A&P Assessment and Plan (1) End stage renal disease: Code(s): N18.6 - End stage renal disease Status: Chronic Assessment and Plan: * continue CCPD nightly * will back off on aggressive fluid removal given soft BP and issues with his liver * follow electrolytes, volume status, and clearance (2) Pneumonia: Code(s): J18.9 - Pneumonia, unspecified organism Status: Acute Assessment and Plan: * as suggested by admission imaging * follow culture data * on antibiotics * continue supportive therapy (3) Pleural effusion: Code(s): J90 - Pleural effusion, not elsewhere classified Status: Acute Assessment and Plan: * also as demonstrated by imaging on presentation * fluid removal with peritoneal dialysis as tolerated * agree with possible need for thoracentesis - possibly tomorrow (4) (HFpEF) heart failure with preserved ejection fraction: Qualifiers: Heart failure chronicity: acute Qualified Code(s): I50.31 - Acute diastolic (congestive) heart failure Code(s): I50.30 - Unspecified diastolic (congestive) heart failure Status: Chronic Assessment and Plan: * known diastolic heart failure likely worsened by evidence of volume overload * fluid removal with peritoneal dialysis as tolerated by hemodynamics (5) Anemia: Code(s): D64.9 - Anemia, unspecified Status: Chronic Assessment and Plan: * due to ESRD as well as acute illness * on Epogen 3x/week while hospitalized * follow trend of H/H (6) Elevated LFTs: Code(s): R79.89 - Other specified abnormal findings of blood chemistry Status: Acute Assessment and Plan: * GI following * presumed due to relative hypotension * concerning the INR is rising... (7) Diabetes: Code(s): E11.9 - Type 2 diabetes mellitus without complications Status: Acute Assessment and Plan: * follow accuchecks * glycemic control Will continue to follow. Subjective Date/time seen: 03/30/22 12:20 Tolerated peritoneal dialysis treatment overnight with reasonable ultrafiltrati on/fluid removal but states he had problems with cramping (which may indicate we have reached a limit with ultrafiltration with CCPD); LFTs about the same but rising INR somewhat concerning; no other acute issues/events overnight or earlier this morning. Exam Narrative: General: WD/WN male in NAD Heart: normal S1 and S2; no rub Lungs: decreased breath sounds at the bases Abdomen: soft, nontender, nondistended, positive bowel sounds Extremities: no cyanosis or clubbing; trace edema Skin: no rash Objective Data Vital Signs Vital Signs: Vital Signs Temp Pulse Resp BP Pulse Ox O2 Del Method 03/30/22 12:07 36.3 C L 101 H 18 94/70 L 95 03/30/22 08:00 Room Air 03/30/22 10:16 104 H 03/30/22 09:55 102/76 03/30/22 08:00 36.3 C L 65 18 93/69 L 94 03/30/22 07:42 36.3 C L 90 20 115/85 03/30/22 07:52 77 12 03/30/22 07:37 72 12 03/30/22 04:00 90 03/30/22 02:26 98 20 03/30/22 02:14 100 20 03/30/22 02:00 106 H 03/30/22 00:09 108 H 03/29/22 23:31 36.3 C L 104 H 20 115/85 96 03/29/22 20:00 96 Room Air 03/29/22 20:0
--- NOTE | 2022-03-30 13:06 | PM.IMPN ---
Progress Note: A&P Assessment and Plan (1) Pleural effusion: Code(s): J90 - Pleural effusion, not elsewhere classified Status: Acute (2) Pneumonia: Code(s): J18.9 - Pneumonia, unspecified organism Status: Acute (3) Elevated troponin I level: Code(s): R77.8 - Other specified abnormalities of plasma proteins Status: Acute (4) Elevated liver enzymes: Code(s): R74.8 - Abnormal levels of other serum enzymes Status: Acute (5) Anemia of chronic disease: Code(s): D63.8 - Anemia in other chronic diseases classified elsewhere Status: Acute (6) Type 2 diabetes mellitus with diabetic nephropathy: Qualifiers: Diabetes mellitus ad terminal makeup operator insulin use: without long-term use Qualified Code(s): E11.21 - Type 2 diabetes mellitus with diabetic nephropathy Code(s): E11.21 - Type 2 diabetes mellitus with diabetic nephropathy Status: Chronic (7) CKD (chronic kidney disease): Code(s): N18.9 - Chronic kidney disease, unspecified Status: Acute (8) Hypothyroidism: Qualifiers: Hypothyroidism type: acquired Qualified Code(s): E03.9 - Hypothyroidism, unspecified Code(s): E03.9 - Hypothyroidism, unspecified Status: Acute Assessment and Plan: (9) Hypercholesteremia: Code(s): E78.00 - Pure hypercholesterolemia, unspecified Status: Acute (10) CHF (congestive heart failure): Code(s): I50.9 - Heart failure, unspecified Status: Acute (11) Paroxysmal atrial fibrillation: Code(s): I48.0 - Paroxysmal atrial fibrillation Status: Acute (12) Hypertension: Qualifiers: Hypertension type: essential hypertension Qualified Code(s): I10 - Essential (primary) hypertension Code(s): I10 - Essential (primary) hypertension Status: Chronic Plan # pleural effusion moderately large right greater than left with bilateral lower lung infiltrate, compressive atelectasis. Likely fluid overloaded, he has been started on iv lasix However required to be discontinued to the patient having hypotensive episodes. he was taken off 1.3L via PD On the morning of 03/30/2022. continue to monitor lactic acid, appeared to worsen however has a slight improvement today. could also be related to some hypovolemia along with worsening liver enzymes. will hold off any diuresis today. leukocytosis worsened as well. will need to plan for thoracentesis to rule out parapneumonic effusion as the etiology of the effusions. will order thoracentesis. need to hold eliquis for the planned procedure when INR is WNL patient received dose of vitamin K on 03/30/2022. Nephrology Decreased dialysis , patient appears to be hypo intensive and therefore aggressive diuresis and fluid removal have been decreased. Peritoneal fluid was obtained and culture has been sent whic his reviewed adn no growth to date. # pneumonia started on Rocephin and azithromycin for community-acquired pneumonia protocol. Sputum culture and other cultures sent. Lactic acid is elevated. COVID is negative. Bronchodilators # elevated lactic acid unclear etiology. Could be pneumonia related. Continue to follow. Respiratory culture with mixed bacterial caleb. Blood culture x2 no growth to date continue to monitor. Will get ultrasound-guided thoracentesis to rule out parapneumonic effusion / empyema as stated above # elevated troponin is likely related to underlying renal failure and congestive heart failure no chest pain. # elevated liver enzymes could be related to passive congestion from CHF. Monitor liver enzymes daily. Hold statin. Continues to worsen. Also has elevated lipase level. Right upper quadrant ultrasound plan today Elevated liver enzyme continues to worsen. Could be shock liver due to dehydration/borderline blood pressure Hold off on IV diuresis GI was consulted, patient did receive a dose of vitamin K due to elevated LF
[2022-03-30 16:28] LABS: Glucose Point of Care 259 mg/dl (65-105)
[2022-03-30 17:32] LABS: Glucose Point of Care 211 mg/dl (65-105)
[2022-03-30] MEDS: INSULIN ASPART (*BKC) 100 UNITS/ML SUB-Q (17:45)
[2022-03-30 20:31] LABS: Glucose Point of Care 233 mg/dl (65-105)
[2022-03-31] VITALS (23 sets, daily range): BP systolic 90–115; BP diastolic 64–79; PULSE 89–127; RESP 16–22; TEMP 36.3–36.7; O2SAT 97–100
[2022-03-31] MEDS: IPRATROPIUM BR 0.02% INH SOLN 0.5 MG/2.5 ML VIAL INHALATION ×4 (03:12→20:18)
[2022-03-31] MEDS: ALBUTEROL SULFATE NEB 2.5 MG/3 ML INH INHALATION ×4 (03:12→20:18)
[2022-03-31 04:58] LABS: Basophils Percent Auto 0.4 % (0.2-1.2); Eosinophils Absolute Auto 0.2 K/mm3 (0-0.3); Eosinophils Percent Auto 1.6 % (0-4.4); Hematocrit 28.3 % (42.0-52.0); Hemoglobin 8.6 g/dL (14.0-18.0); Immature Granulocyte Absolute 0.14 K/mm3 (0.00-0.031); Immature Granulocyte Percent A 1.3 % (0-0.5); Lymphocytes Absolute Auto 1.03 K/mm3 (0.9-3.2); Lymphocytes Percent Auto 9.2 % (18.3-44.2); Mean Corpuscular HGB Conc 30.4 g/dl (32-36); Mean Corpuscular Hemoglobin 33.2 pg (26-34); Mean Corpuscular Volume 109.3 fl (80-100); Mean Platelet Volume 11.9 fl (7.4-10.4); Monocytes Absolute Auto 0.6 K/mm3 (0.1-0.6); Monocytes Percent Auto 5.6 % (2.6-8.5); Neutrophils Absolute Auto 9.2 K/mm3 (1.3-6.7); Neutrophils Percent Auto 81.9 % (45.5-73.1); Nucleated Red Blood Cells Absolute Auto 0.1 K/mm3 (0.0-0.012); Nucleated Red Blood Cells Perc 0.9 % (0.0-0.2); Platelet Count Result 120 k/mm3 (150-375); Red Blood Count 2.59 M/mm3 (4.6-6.20); Red Cell Distribution Width 15.5 % (11.5-14.5); White Blood Count 11.2 K/mm3 (4.5-10.0)
[2022-03-31 04:59] LABS: Albumin Level 3.3 g/dL (3.5-5.1); Alkaline Phosphatase 96 U/L (38-126); Anion Gap 19 mmol/L (8-16); Aspartate Amino Transferase 252 U/L (17-59); Bilirubin,Total 0.7 mg/dL (0.2-1.3); Blood Urea Nitrogen 50 mg/dL (9-20); Calcium 8.4 mg/dL (8.4-10.2); Carbon Dioxide 24 mmol/L (22-30); Chloride 95 mmol/L (98-107); Estimated CRCL calculation 7 ml/min; Estimated Glomerular Filt Rate 6; Glucose 214 mg/dL (65-110); Potassium 3.9 mmol/L (3.4-5.0); Sodium 138 mmol/L (137-145)
[2022-03-31 05:36] LABS: Macrocytosis 1+ (NORMAL); Platelet Estimate Decreased (Adequate)
[2022-03-31 05:37] LABS: Alanine Aminotransferase 1084 U/L (6-50)
--- NOTE | 2022-03-31 07:07 | PM.IMPN ---
Progress Note: A&P Assessment and Plan (1) Pleural effusion: Code(s): J90 - Pleural effusion, not elsewhere classified Status: Acute Assessment and Plan: # pleural effusion moderately large right greater than left with bilateral lower lung infiltrate, compressive atelectasis.? Likely fluid overloaded, he has been started on iv lasix? However required to be discontinued to the patient having hypotensive episodes. he was taken off 1.3L via PD? On the morning of 03/30/2022. ?continue to monitor lactic acid, appeared to worsen however has a slight improvement today. could also be related to some hypovolemia along with worsening liver enzymes. will hold off any diuresis today. leukocytosis worsened as well. will need to plan for thoracentesis to rule out parapneumonic effusion as the etiology of the effusions.?will order thoracentesis. need to hold eliquis for the planned procedure when INR is WNL patient received dose of vitamin K on 03/30/2022. ? Nephrology ? Decreased dialysis , patient appears to be hypo intensive and therefore aggressive diuresis and fluid removal have been decreased. Peritoneal fluid was obtained and culture has been sent whic his reviewed adn no growth to date. (2) Pneumonia: Code(s): J18.9 - Pneumonia, unspecified organism Status: Acute Assessment and Plan: Monitor vital signs, I&Os, neuro status and patient is a fall risk Follow WBC, serum electrolytes, temperature curves and cultures Send sputum cultures Oxygen via NC; wean as tolerated. Keep SpO2 greater than 88% Ceftriaxone 2 gram IV q24H and Azithromycin 500mg IV q24H DuoNeb q6H and Albuterol q2H PRN Encourage flutter valve and incentive spirometry P.r.n. Tylenol, Zofran, and melatonin (3) Elevated troponin I level: Code(s): R77.8 - Other specified abnormalities of plasma proteins Status: Acute Assessment and Plan: likely related to renal failure and congestive heart failure, no active chest pain (4) Elevated liver enzymes: Code(s): R74.8 - Abnormal levels of other serum enzymes Status: Acute Assessment and Plan: elevated liver enzymes may be related to passive congestion from congestive heart failure with associated shock liver due to sepsis. Statins were held. Gastroenterology was consulted. A right upper quadrant was obtained which was negative for acute findings. Patient did receive a dose of vitamin K due to elevated INR of 3.1, today INR is 1.9. Unable to perform thoracentesis at this time given his INR still elevated. Possible plan for thoracentesis on 04/01/2022. Hold off on IV diuresis (5) Anemia of chronic disease: Code(s): D63.8 - Anemia in other chronic diseases classified elsewhere Status: Acute Assessment and Plan: anemia related to CKD, monitor counts. No active signs of bleeding. (6) Type 2 diabetes mellitus with diabetic nephropathy: Qualifiers: Diabetes mellitus terminal makeup operator insulin use: without terminal makeup operator use Qualified Code(s): E11.21 - Type 2 diabetes mellitus with diabetic nephropathy Code(s): E11.21 - Type 2 diabetes mellitus with diabetic nephropathy Status: Chronic Assessment and Plan: Patient was recently off diabetic medications due to weight loss. Continue to monitor Insulin Lispro sliding scale, Accu-checks qAc and HS HgbA1c 5.9% (7) CKD (chronic kidney disease): Code(s): N18.9 - Chronic kidney disease, unspecified Status: Acute Assessment and Plan: patient continues with peritoneal dialysis since June of 2021 Nephrology has been consulted PD catheter intact (8) Hypothyroidism: Qualifiers: Hypothyroidism type: acquired Qualified Code(s): E03.9 - Hypothyroidism, unspecified Code(s): E03.9 - Hypothyroidism, unspecified Status: Acute Assessment and Plan: stable (9) Hypercholesteremia: Code(s): E78.00 - Pure hypercholesterolemia, u
[2022-03-31 08:16] LABS: Glucose Point of Care 160 mg/dl (65-105)
[2022-03-31] MEDS: METOPROLOL SUCCINATE EXT REL 25 MG TABCR PO (08:33)
[2022-03-31] MEDS: calcitrioL 0.25 MCG CAPSULE PO (08:33)
[2022-03-31] MEDS: POTASSIUM CHLORIDE 20 MEQ TABLET.ER PO (08:33)
[2022-03-31 08:35] LABS: INR 1.9; Prothrombin Time 21.2 Seconds (11.1-14.7)
--- NOTE | 2022-03-31 08:49 | WPDGIPROGNO ---
Progress Note: A&P Assessment and Plan (1) Elevated liver enzymes: Code(s): R74.8 - Abnormal levels of other serum enzymes Status: Acute Assessment and Plan: The sudden dramatic increase in liver enzymes along with elevated lactic acid level suggests ischemic hepatopathy, ( shock liver) apparently his blood pressure was soft and antihypertensive medications have been reduced. The patient states that he actually stop some of them himself and his nephrology discontinued the others last week because the blood pressure was quite low. Even today his systolic blood pressure is running around the 90s I told that there is no specific treatment for his elevated liver enzymes. He denies use of alcohol or of acetaminophen. I would suspect that the transaminases will begin to come down over the next couple of days. Also follow his bilirubin to watch for signs of hepatic failure 03/30/2022 LFTs are not significantly changed. AST has come down to 739 but ALT increased slightly. Bilirubin remains normal. Elevated INR is a concern. He has not been on warfarin, there for this reflects his hepatopathy. I will give vitamin K. I explained to him how liver injury affects clotting factors and other synthetic and metabolic processes. 03/31/2022 transaminases are trending down. AST is 252, ALT 1084. Bilirubin remains normal. (2) End stage renal disease: Code(s): N18.6 - End stage renal disease Status: Chronic Assessment and Plan: he has been on peritoneal dialysis for some time, supposedly diabetic nephropathy 03/31/2022 the patient states that his peritoneal dialysis did not go well last night. The optoelectronic technician stated that the machine was not set up properly and the treatment had to be terminated early. (3) Elevated troponin: Code(s): R77.8 - Other specified abnormalities of plasma proteins Status: Acute Assessment and Plan: cardiology has seen him and feels that the troponin levels are not related to cardiac issues (4) Diabetes: Code(s): E11.9 - Type 2 diabetes mellitus without complications Status: Acute Assessment and Plan: he has been insulin dependent. He has diabetic nephropathy 03/31/2022 this morning the patient mentioned that they seem to be drawing blood from him all night long. I reminded him that that is for blood glucose measurements, Relative 2 diabetes. Oddly, he states that he was not a diabetic (5) Pleural effusion: Code(s): J90 - Pleural effusion, not elsewhere classified Status: Acute Assessment and Plan: likely due to fluid overload. Thoracentesis is scheduled. Diuretics are being held. He was receiving diuresis however the soft blood pressure indicates that we should hold off on aggressive diuresis. 03/30/2022 thoracentesis on hold awaiting correction of coagulopathy. (6) Hypotension: Code(s): I95.9 - Hypotension, unspecified Status: Acute Assessment and Plan: although he is normally hypertensive, his blood pressure has been soft and low since hospitalization and he states that it was apparently even lower when he was taken off of his blood pressure medications a week ago. This had think is the most probable reason for his shock liver, ischemic hepatopathy. (7) Elevated lactic acid level: Code(s): R79.89 - Other specified abnormal findings of blood chemistry Status: Acute Assessment and Plan: This supports the impression that he has ischemic hepatopathy. initially lactic acid was elevated . Today's is normal which is refreshing. 03/31/2022 I am confident that his ischemic hepatopathy is resolving spontaneously. As long as his blood pressure does not drop significantly he should be okay. (8) Coagulopathy: Code(s): D68.9 - Coagulation defect, unspecified Status: Acute Assessment and Plan: his INR is increasing, 3.1 today. I will give him a dose
--- NOTE | 2022-03-31 11:52 | P.PNNP_ITS ---
Progress Note: A&P Assessment and Plan (1) End stage renal disease: Code(s): N18.6 - End stage renal disease Status: Chronic Assessment and Plan: * continue CCPD nightly * follow electrolytes, volume status, and clearance (2) Pneumonia: Code(s): J18.9 - Pneumonia, unspecified organism Status: Acute Assessment and Plan: * as suggested by admission imaging * follow culture data * on antibiotics * continue supportive therapy (3) Pleural effusion: Code(s): J90 - Pleural effusion, not elsewhere classified Status: Acute Assessment and Plan: * also as demonstrated by imaging on presentation * fluid removal with peritoneal dialysis as tolerated * agree with possible need for thoracentesis (4) (HFpEF) heart failure with preserved ejection fraction: Qualifiers: Heart failure chronicity: acute Qualified Code(s): I50.31 - Acute diastolic (congestive) heart failure Code(s): I50.30 - Unspecified diastolic (congestive) heart failure Status: Chronic Assessment and Plan: * known diastolic heart failure likely worsened by evidence of volume overload * fluid removal with peritoneal dialysis as tolerated by hemodynamics (5) Anemia: Code(s): D64.9 - Anemia, unspecified Status: Chronic Assessment and Plan: * due to ESRD as well as acute illness * on Epogen 3x/week while hospitalized * follow trend of H/H (6) Elevated LFTs: Code(s): R79.89 - Other specified abnormal findings of blood chemistry Status: Acute Assessment and Plan: * GI following * presumed due to relative hypotension * concerning the INR is rising... (7) Diabetes: Code(s): E11.9 - Type 2 diabetes mellitus without complications Status: Acute Assessment and Plan: * follow accuchecks * glycemic control Will continue to follow. Subjective Date/time seen: 03/31/22 11:52 Apparently, peritoneal dialysis treatment did not go very well last night (possible missed an exchange?); despite this, he feels that he is slowly getting better with current therapy; no apparent distress at the time of my visit; tolerating oral intake/lunch with no nausea currently. Exam Narrative: General: WD/WN male in NAD Heart: normal S1 and S2; no rub Lungs: decreased breath sounds at the bases Abdomen: soft, nontender, nondistended, positive bowel sounds Extremities: no cyanosis or clubbing; trace edema Skin: no nodules Objective Data Vital Signs Vital Signs: Vital Signs Temp Pulse Resp BP Pulse Ox O2 Del Method 03/31/22 10:00 106 H 03/31/22 08:00 118 H 03/31/22 08:33 127 H 03/31/22 08:00 36.4 C L 123 H 20 102/79 100 03/31/22 07:30 36.4 C L 109 H 18 115/69 03/31/22 07:43 102 H 16 03/31/22 07:34 99 Room Air 03/31/22 07:33 98 16 03/31/22 06:00 109 H 03/31/22 04:00 117 H 03/31/22 03:08 120 H 18 98 Room Air 03/31/22 03:49 36.4 C L 120 H 18 115/69 98 03/30/22 20:55 105 H 16 03/31/22 03:12 102 H 16 03/31/22 02:00 105 H 03/31/22 00:00 97 03/30/22 23:57 114 H 18 100 Room Air 03/30/22 23:07 36.4 C 114 H 18 126/78 100 03/30/22 22:00 1
--- NOTE | 2022-03-31 11:52 | PM.PNNEP ---
Progress Note: A&P Assessment and Plan (1) End stage renal disease: Code(s): N18.6 - End stage renal disease Status: Chronic Assessment and Plan: continue CCPD nightly follow electrolytes, volume status, and clearance (2) Pneumonia: Code(s): J18.9 - Pneumonia, unspecified organism Status: Acute Assessment and Plan: as suggested by admission imaging follow culture data on antibiotics continue supportive therapy (3) Pleural effusion: Code(s): J90 - Pleural effusion, not elsewhere classified Status: Acute Assessment and Plan: also as demonstrated by imaging on presentation fluid removal with peritoneal dialysis as tolerated agree with possible need for thoracentesis (4) (HFpEF) heart failure with preserved ejection fraction: Qualifiers: Heart failure chronicity: acute Qualified Code(s): I50.31 - Acute diastolic (congestive) heart failure Code(s): I50.30 - Unspecified diastolic (congestive) heart failure Status: Chronic Assessment and Plan: known diastolic heart failure likely worsened by evidence of volume overload fluid removal with peritoneal dialysis as tolerated by hemodynamics (5) Anemia: Code(s): D64.9 - Anemia, unspecified Status: Chronic Assessment and Plan: due to ESRD as well as acute illness on Epogen 3x/week while hospitalized follow trend of H/H (6) Elevated LFTs: Code(s): R79.89 - Other specified abnormal findings of blood chemistry Status: Acute Assessment and Plan: GI following presumed due to relative hypotension concerning the INR is rising... (7) Diabetes: Code(s): E11.9 - Type 2 diabetes mellitus without complications Status: Acute Assessment and Plan: follow accuchecks glycemic control Will continue to follow. Subjective Date/time seen: 03/31/22 11:52 Apparently, peritoneal dialysis treatment did not go very well last night (possible missed an exchange?); despite this, he feels that he is slowly getting better with current therapy; no apparent distress at the time of my visit; tolerating oral intake/lunch with no nausea currently. Exam Narrative: General: WD/WN male in NAD Heart: normal S1 and S2; no rub Lungs: decreased breath sounds at the bases Abdomen: soft, nontender, nondistended, positive bowel sounds Extremities: no cyanosis or clubbing; trace edema Skin: no nodules Objective Data Vital Signs Vital Signs: Vital Signs Temp Pulse Resp BP Pulse Ox O2 Del Method 03/31/22 10:00 106 H 03/31/22 08:00 118 H 03/31/22 08:33 127 H 03/31/22 08:00 36.4 C L 123 H 20 102/79 100 03/31/22 07:30 36.4 C L 109 H 18 115/69 03/31/22 07:43 102 H 16 03/31/22 07:34 99 Room Air 03/31/22 07:33 98 16 03/31/22 06:00 109 H 03/31/22 04:00 117 H 03/31/22 03:08 120 H 18 98 Room Air 03/31/22 03:49 36.4 C L 120 H 18 115/69 98 03/30/22 20:55 105 H 16 03/31/22 03:12 102 H 16 03/31/22 02:00 105 H 03/31/22 00:00 97 03/30/22 23:57 114 H 18 100 Room Air 03/30/22 23:07 36.4 C 114 H 18 126/78 100 03/30/22 22:00 112 H 03/30/22 20:00 97 03/30/22 20:00 128 H 20 98 Room Air 03/30/22 20:42 103 H 16 03/30/22 20:42 98 Room Air 03/30/22 20:33 36.4 C 128 H 20 113/64 98 03/30/22 18:00 98 03/30/22 16:00 100 03/30/22 14:00 88 03/30/22 12:00 100 03/30/22 16:00 Room Air 03/30/22 16:00 36.2 C L 70 18 97/69 L 90 03/30/22 13:59 86 12 03/30/22 13:43 79 12 03/30/22 12:00 Room Air 03/30/22 12:07 36.3 C L 101 H 18 94/70 L 95 Intake/Output Intake/Output: Intake & Output 03/28/22 03/29/22 03/30/22 03/31/22 23:59 23:59 23:59 23:59 Intake Total 715 659 8307 350 Output Total 2300 446 1356 370 Bal
[2022-03-31 12:26] LABS: Glucose Point of Care 204 mg/dl (65-105)
[2022-03-31] MEDS: INSULIN ASPART (*BKC) 100 UNITS/ML SUB-Q (12:50)
[2022-03-31] MEDS: ONDANSETRON INJ 4 MG/2 ML VIAL IV PUSH (14:27)
[2022-03-31 16:48] LABS: Glucose Point of Care 145 mg/dl (65-105)
[2022-03-31 20:34] LABS: Glucose Point of Care 167 mg/dl (65-105)
[2022-04-01] VITALS (21 sets, daily range): BP systolic 91–111; BP diastolic 57–85; PULSE 71–116; RESP 12–20; TEMP 36.1–36.8; O2SAT 94–100
[2022-04-01] MEDS: IPRATROPIUM BR 0.02% INH SOLN 0.5 MG/2.5 ML VIAL INHALATION ×3 (02:38→20:00)
[2022-04-01] MEDS: ALBUTEROL SULFATE NEB 2.5 MG/3 ML INH INHALATION ×3 (02:38→20:00)
[2022-04-01 04:53] LABS: Basophils Percent Auto 0.4 % (0.2-1.2); Eosinophils Absolute Auto 0.4 K/mm3 (0-0.3); Eosinophils Percent Auto 3.4 % (0-4.4); Hematocrit 28.4 % (42.0-52.0); Hemoglobin 8.8 g/dL (14.0-18.0); Immature Granulocyte Absolute 0.15 K/mm3 (0.00-0.031); Immature Granulocyte Percent A 1.4 % (0-0.5); Lymphocytes Absolute Auto 1.18 K/mm3 (0.9-3.2); Lymphocytes Percent Auto 11.2 % (18.3-44.2); Mean Corpuscular Hemoglobin 33.7 pg (26-34); Mean Corpuscular Volume 108.8 fl (80-100); Mean Platelet Volume 11.4 fl (7.4-10.4); Monocytes Absolute Auto 0.7 K/mm3 (0.1-0.6); Monocytes Percent Auto 6.6 % (2.6-8.5); Neutrophils Absolute Auto 8.2 K/mm3 (1.3-6.7); Nucleated Red Blood Cells Absolute Auto 0.1 K/mm3 (0.0-0.012); Nucleated Red Blood Cells Perc 0.6 % (0.0-0.2); Platelet Count Result 102 k/mm3 (150-375); Red Blood Count 2.61 M/mm3 (4.6-6.20); Red Cell Distribution Width 15.8 % (11.5-14.5); White Blood Count 10.6 K/mm3 (4.5-10.0)
[2022-04-01 05:08] LABS: Alanine Aminotransferase 698 U/L (6-50); Albumin Level 3.2 g/dL (3.5-5.1); Alkaline Phosphatase 86 U/L (38-126); Anion Gap 16 mmol/L (8-16); Aspartate Amino Transferase 81 U/L (17-59); Bilirubin,Total 0.6 mg/dL (0.2-1.3); Blood Urea Nitrogen 47 mg/dL (9-20); Calcium 8.5 mg/dL (8.4-10.2); Carbon Dioxide 25 mmol/L (22-30); Chloride 96 mmol/L (98-107); Estimated CRCL calculation 7 ml/min; Estimated Glomerular Filt Rate 6; Glucose 204 mg/dL (65-110); Potassium 4.1 mmol/L (3.4-5.0); Sodium 137 mmol/L (137-145)
[2022-04-01 08:50] LABS: Glucose Point of Care 135 mg/dl (65-105)
--- NOTE | 2022-04-01 08:59 | PM.IMPN ---
Progress Note: A&P Assessment and Plan (1) Pleural effusion: Code(s): J90 - Pleural effusion, not elsewhere classified Status: Acute (2) Pneumonia: Code(s): J18.9 - Pneumonia, unspecified organism Status: Acute (3) Elevated troponin I level: Code(s): R77.8 - Other specified abnormalities of plasma proteins Status: Acute (4) Elevated liver enzymes: Code(s): R74.8 - Abnormal levels of other serum enzymes Status: Acute (5) Anemia of chronic disease: Code(s): D63.8 - Anemia in other chronic diseases classified elsewhere Status: Acute (6) Type 2 diabetes mellitus with diabetic nephropathy: Qualifiers: 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: without 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 Qualified Code(s): E11.21 - Type 2 diabetes mellitus with diabetic nephropathy Code(s): E11.21 - Type 2 diabetes mellitus with diabetic nephropathy Status: Chronic (7) CKD (chronic kidney disease): Code(s): N18.9 - Chronic kidney disease, unspecified Status: Acute (8) Hypothyroidism: Qualifiers: Hypothyroidism type: acquired Qualified Code(s): E03.9 - Hypothyroidism, unspecified Code(s): E03.9 - Hypothyroidism, unspecified Status: Acute Assessment and Plan: (9) Hypercholesteremia: Code(s): E78.00 - Pure hypercholesterolemia, unspecified Status: Acute (10) CHF (congestive heart failure): Code(s): I50.9 - Heart failure, unspecified Status: Acute (11) Paroxysmal atrial fibrillation: Code(s): I48.0 - Paroxysmal atrial fibrillation Status: Acute (12) Hypertension: Qualifiers: Hypertension type: essential hypertension Qualified Code(s): I10 - Essential (primary) hypertension Code(s): I10 - Essential (primary) hypertension Status: Chronic Plan # pleural effusion moderately large right greater than left with bilateral lower lung infiltrate, compressive atelectasis. Likely fluid overloaded, he has been started on iv lasix. with minimal output. he was taken off 2L via PD. with lactic acidosis worsening, could also be related to some hypovolemia along with worsening liver enzymes. will hold off any diuresis today. leukocytosis worsened as well. will need to plan for thoracentesis to rule out parapneumonic effusion as the etiology of the effusions. INR drifting down since holding Eliquis. For planned thoracentesis. Also received a dose of vitamin K on 03/30/2022 Aggressive dialysis along with diuresis Peritoneal fluid was obtained and culture has been sent which his reviewed and no growth to date. # pneumonia started on Rocephin and azithromycin for community-acquired pneumonia protocol. Sputum culture and other cultures sent. Lactic acid is elevated. COVID is negative. Bronchodilators D 6 of azithromycin. will discontinue Today. # elevated lactic acid unclear etiology. Could be pneumonia related. Continue to follow. Respiratory culture with mixed bacterial caleb. Blood culture x2 no growth to date continue to monitor. Will get ultrasound-guided thoracentesis to rule out parapneumonic effusion / empyema # elevated troponin is likely related to underlying renal failure and congestive heart failure no chest pain. # elevated liver enzymes could be related to passive congestion from CHF. Monitor liver enzymes daily. Hold statin. Continues to worsen. Also has elevated lipase level. Right upper quadrant ultrasound plan today Elevated liver enzyme continues to worsen. Could be shock liver due to dehydration/borderline blood pressure Hold off on IV diuresis Consulted GI and appreciate his recommendations. Suggest ischemic hepatopathy as an etiology # anemia chronic disease related to CKD monitor counts no active signs of bleeding # type 2 diabetes mellitus with diabetic nephropathy: Recently off diabetes medication lost weight. Continue monitor Accu-Cheks AC and HS #
[2022-04-01] MEDS: POTASSIUM CHLORIDE 20 MEQ TABLET.ER PO (09:23)
[2022-04-01] MEDS: METOPROLOL SUCCINATE EXT REL 25 MG TABCR PO (09:23)
[2022-04-01] MEDS: calcitrioL 0.25 MCG CAPSULE PO (09:23)
--- NOTE | 2022-04-01 11:37 | PM.PNNEP ---
Progress Note: A&P Assessment and Plan (1) End stage renal disease: Code(s): N18.6 - End stage renal disease Status: Chronic Assessment and Plan: continue CCPD nightly volume status is better from the sounds of it (2) Pneumonia: Code(s): J18.9 - Pneumonia, unspecified organism Status: Acute Assessment and Plan: as suggested by admission imaging follow culture data On Zithromax and ceftriaxone. continue supportive therapy (3) Pleural effusion: Code(s): J90 - Pleural effusion, not elsewhere classified Status: Acute Assessment and Plan: also as demonstrated by imaging on presentation fluid removal with peritoneal dialysis as tolerated agree with possible need for thoracentesis . This may happen soon. (4) (HFpEF) heart failure with preserved ejection fraction: Qualifiers: Heart failure chronicity: acute Qualified Code(s): I50.31 - Acute diastolic (congestive) heart failure Code(s): I50.30 - Unspecified diastolic (congestive) heart failure Status: Chronic Assessment and Plan: known diastolic heart failure likely worsened by evidence of volume overload We removed fluid for a couple of days but then he cramps yesterday so the amount of fluid removal was decreased last night. He did get 1400cc off. (5) Anemia: Code(s): D64.9 - Anemia, unspecified Status: Chronic Assessment and Plan: due to ESRD as well as acute illness on Epogen 3x/week while hospitalized Hemoglobin is 8.8. (6) Diabetes: Code(s): E11.9 - Type 2 diabetes mellitus without complications Status: Acute Assessment and Plan: On Accu-Cheks and sliding scale per hospitalist. (7) Elevated transaminase level: Code(s): R74.01 - Elevation of levels of liver transaminase levels Status: Acute Assessment and Plan: liver enzymes are decreasing. Check a CK in case this is a muscle thing. Subjective Date/time seen: 04/01/22 11:37 Interval history: Elias is feeling better. His swelling is better and shortness of breath is better he is lying flat in bed getting a breathing treatment. He is finishing his peritoneal dialysis. He was seen at 8:15 a.m. Exam Narrative: General: WD/WN male in NAD Heart: normal S1 and S2; no rub or gallop Lungs: decreased breath sounds at the bases, rare crackles Abdomen: soft, nontender, nondistended, positive bowel sounds Extremities: trace edema Skin: no nodules or rash Objective Data Vital Signs Vital Signs: Vital Signs - 24 hr 03/31/22 12:00 03/31/22 12:00 03/31/22 13:48 Temperature 36.3 C L Pulse Rate 99 109 H 90 Respiratory Rate 20 18 Blood Pressure 102/75 Pulse Oximetry 100 Oxygen Delivery 03/31/22 13:58 03/31/22 14:00 03/31/22 16:00 Temperature Pulse Rate 95 92 99 Respiratory Rate 18 Blood Pressure Pulse Oximetry Oxygen Delivery 03/31/22 16:00 03/31/22 18:00 03/31/22 20:20 Temperature 36.4 C Pulse Rate 117 H 107 H 89 Respiratory Rate 22 H 17 Blood Pressure 103/72 Pulse Oximetry 97 Oxygen Delivery 03/31/22 20:00 03/31/22 20:00 03/31/22 20:00 Temperature 36.7 C Pulse Rate 91 100 89 Respiratory Rate 20 17 Blood Pressure 90/64 L Pulse Oximetry 100 100 Oxygen Delivery Room Air 03/31/22 22:00 04/01/22 00:00 04/01/22 00:00 Temperature 36.7 C Pulse Rate 102 H 85 93 Respiratory Rate 18 Blood Pressure 94/69 L Pulse Oximetry 97 Oxygen Delivery 04/01/22 00:00 04/01/22 02:00 04/01/22 02:40 Temperature Pulse Rate 85 99 71 Respiratory Rate 18 15 Blood Pressure Pulse Oximetry 97 Oxygen Delivery Room Air 04/01/22 04:00 04/01/22 04:00 04/01/22 04:00 Temperature 36.8 C Pulse Rate 90 92 90 Respiratory Rate 20 20 Blood Pressure 110/85 Pulse Oximetry 100 100 Oxygen Delivery Room Air 04/01/22 06:00 04/01/22 07:35 08
[2022-04-01 11:52] LABS: INR 1.6; Prothrombin Time 18.9 Seconds (11.1-14.7)
[2022-04-01 12:16] LABS: Glucose Point of Care 153 mg/dl (65-105)
[2022-04-01 17:07] LABS: Glucose Point of Care 140 mg/dl (65-105)
[2022-04-01 17:13] LABS: Creatine Kinase 239 U/L (55-170)
[2022-04-01 20:03] LABS: Glucose Point of Care 204 mg/dl (65-105)
[2022-04-02] VITALS (24 sets, daily range): BP systolic 80–98; BP diastolic 54–84; PULSE 73–119; RESP 18–22; TEMP 35.7–36.6; O2SAT 93–99
[2022-04-02] MEDS: IPRATROPIUM BR 0.02% INH SOLN 0.5 MG/2.5 ML VIAL INHALATION ×2 (01:29→20:19)
[2022-04-02] MEDS: ALBUTEROL SULFATE NEB 2.5 MG/3 ML INH INHALATION ×2 (01:29→20:19)
[2022-04-02 05:17] LABS: Basophils Absolute Auto 0.1 K/mm3 (0.0-0.1); Basophils Percent Auto 0.5 % (0.2-1.2); Eosinophils Absolute Auto 0.4 K/mm3 (0-0.3); Eosinophils Percent Auto 4.2 % (0-4.4); Hematocrit 30.2 % (42.0-52.0); Hemoglobin 9.1 g/dL (14.0-18.0); Immature Granulocyte Absolute 0.15 K/mm3 (0.00-0.031); Immature Granulocyte Percent A 1.6 % (0-0.5); Lymphocytes Absolute Auto 1.35 K/mm3 (0.9-3.2); Lymphocytes Percent Auto 14.1 % (18.3-44.2); Mean Corpuscular HGB Conc 30.1 g/dl (32-36); Mean Corpuscular Hemoglobin 33.7 pg (26-34); Mean Corpuscular Volume 111.9 fl (80-100); Mean Platelet Volume 11.5 fl (7.4-10.4); Monocytes Absolute Auto 0.7 K/mm3 (0.1-0.6); Monocytes Percent Auto 7.3 % (2.6-8.5); Neutrophils Absolute Auto 6.9 K/mm3 (1.3-6.7); Neutrophils Percent Auto 72.3 % (45.5-73.1); Nucleated Red Blood Cells Perc 0.4 % (0.0-0.2); Platelet Count Result 103 k/mm3 (150-375); Red Cell Distribution Width 16.1 % (11.5-14.5); White Blood Count 9.6 K/mm3 (4.5-10.0)
[2022-04-02 05:25] LABS: INR 1.6; Prothrombin Time 18.2 Seconds (11.1-14.7)
[2022-04-02 05:29] LABS: Alanine Aminotransferase 531 U/L (6-50); Albumin Level 3.3 g/dL (3.5-5.1); Alkaline Phosphatase 79 U/L (38-126); Anion Gap 15 mmol/L (8-16); Aspartate Amino Transferase 53 U/L (17-59); Bilirubin,Total 0.7 mg/dL (0.2-1.3); Blood Urea Nitrogen 48 mg/dL (9-20); Calcium 8.5 mg/dL (8.4-10.2); Carbon Dioxide 25 mmol/L (22-30); Chloride 96 mmol/L (98-107); Estimated CRCL calculation 7 ml/min; Estimated Glomerular Filt Rate 6; Glucose 189 mg/dL (65-110); Phosphorus 7.5 mg/dL (2.5-4.5); Potassium 4.7 mmol/L (3.4-5.0); Sodium 136 mmol/L (137-145)
[2022-04-02 07:31] LABS: Glucose Point of Care 150 mg/dl (65-105)
--- NOTE | 2022-04-02 08:06 | P.PNNP_ITS ---
Progress Note: A&P Assessment and Plan (1) End stage renal disease: Code(s): N18.6 - End stage renal disease Status: Chronic Assessment and Plan: * continue CCPD nightly * the patient looks euvolemic. * Potassium is normal. * Sodium is slightly low, because of the high sugars and ESRD. (2) Pneumonia: Code(s): J18.9 - Pneumonia, unspecified organism Status: Acute Assessment and Plan: * as suggested by admission imaging * follow culture data * On Zithromax and ceftriaxone. * will add nystatin to prevent fungal infection per PD protocol * continue supportive therapy (3) Pleural effusion: Code(s): J90 - Pleural effusion, not elsewhere classified Status: Acute Assessment and Plan: * also as demonstrated by imaging on presentation * fluid removal with peritoneal dialysis as tolerated * agree with possible need for thoracentesis. * waiting for coagulation parameters to be appropriate for thoracentesis. * In the meantime continue to remove fluid. (4) (HFpEF) heart failure with preserved ejection fraction: Qualifiers: Heart failure chronicity: acute Qualified Code(s): I50.31 - Acute diastolic (congestive) heart failure Code(s): I50.30 - Unspecified diastolic (congestive) heart failure Status: Chronic Assessment and Plan: * known diastolic heart failure likely worsened by evidence of volume overload * He is tolerating the dialysis now as far as fluid removal. He had 1100cc off Overnight (5) Anemia: Code(s): D64.9 - Anemia, unspecified Status: Chronic Assessment and Plan: * due to ESRD as well as acute illness * on Epogen 3x/week while hospitalized * Hemoglobin is up to 9.1 (6) Diabetes: Code(s): E11.9 - Type 2 diabetes mellitus without complications Status: Acute Assessment and Plan: * On Accu-Cheks and sliding scale per hospitalist. (7) Elevated transaminase level: Code(s): R74.01 - Elevation of levels of liver transaminase levels Status: Acute Assessment and Plan: liver enzymes continue to drop. CK only slightly high. Subjective Date/time seen: 04/02/22 08:06 Interval history: Elias Feels is good as he has as he got here. Not baseline yet though. sitting up at the side of the bed ordering breakfast. His board says regular diet but his orders say full liquid. I talked with nursing and they will advance him to a renal diet. The patient is on peritoneal dialysis. Tolerating it well. Fluid was clear and flows were good. 1100cc came off. He was seen at 7:15 a.m. Exam Narrative: General: WD/WN male in NAD Heart: normal S1 and S2; no rub or gallop Lungs: mildly coarse at the bases Abdomen: soft, nontender, nondistended, positive bowel sounds Extremities: trace edema Skin: no acute rash Objective Data Vital Signs Vital Signs: Vital Signs - 24 hr 04/01/22 08:09 04/01/22 08:20 04/01/22 09:23 Temperature Pulse Rate 89 92 116 H Respiratory Rate 16 Blood Pressure Pulse Oximetry 94 Oxygen Delivery Room Air 04/01/22 10:00 04/01/22 12:00 04/01/22 12:00 Temperature 36.1 C L Pulse Rate 99 93 101 H Respiratory Rate 12 Blood Pressure 100/68 Pulse Oximetry 96
--- NOTE | 2022-04-02 08:06 | PM.PNNEP ---
Progress Note: A&P Assessment and Plan (1) End stage renal disease: Code(s): N18.6 - End stage renal disease Status: Chronic Assessment and Plan: continue CCPD nightly the patient looks euvolemic. Potassium is normal. Sodium is slightly low, because of the high sugars and ESRD. (2) Pneumonia: Code(s): J18.9 - Pneumonia, unspecified organism Status: Acute Assessment and Plan: as suggested by admission imaging follow culture data On Zithromax and ceftriaxone. will add nystatin to prevent fungal infection per PD protocol continue supportive therapy (3) Pleural effusion: Code(s): J90 - Pleural effusion, not elsewhere classified Status: Acute Assessment and Plan: also as demonstrated by imaging on presentation fluid removal with peritoneal dialysis as tolerated agree with possible need for thoracentesis. waiting for coagulation parameters to be appropriate for thoracentesis. In the meantime continue to remove fluid. (4) (HFpEF) heart failure with preserved ejection fraction: Qualifiers: Heart failure chronicity: acute Qualified Code(s): I50.31 - Acute diastolic (congestive) heart failure Code(s): I50.30 - Unspecified diastolic (congestive) heart failure Status: Chronic Assessment and Plan: known diastolic heart failure likely worsened by evidence of volume overload He is tolerating the dialysis now as far as fluid removal. He had 1100cc off Overnight (5) Anemia: Code(s): D64.9 - Anemia, unspecified Status: Chronic Assessment and Plan: due to ESRD as well as acute illness on Epogen 3x/week while hospitalized Hemoglobin is up to 9.1 (6) Diabetes: Code(s): E11.9 - Type 2 diabetes mellitus without complications Status: Acute Assessment and Plan: On Accu-Cheks and sliding scale per hospitalist. (7) Elevated transaminase level: Code(s): R74.01 - Elevation of levels of liver transaminase levels Status: Acute Assessment and Plan: liver enzymes continue to drop. CK only slightly high. Subjective Date/time seen: 04/02/22 08:06 Interval history: Elias Feels is good as he has as he got here. Not baseline yet though. sitting up at the side of the bed ordering breakfast. His board says regular diet but his orders say full liquid. I talked with nursing and they will advance him to a renal diet. The patient is on peritoneal dialysis. Tolerating it well. Fluid was clear and flows were good. 1100cc came off. He was seen at 7:15 a.m. Exam Narrative: General: WD/WN male in NAD Heart: normal S1 and S2; no rub or gallop Lungs: mildly coarse at the bases Abdomen: soft, nontender, nondistended, positive bowel sounds Extremities: trace edema Skin: no acute rash Objective Data Vital Signs Vital Signs: Vital Signs - 24 hr 04/01/22 08:09 04/01/22 08:20 04/01/22 09:23 Temperature Pulse Rate 89 92 116 H Respiratory Rate 16 Blood Pressure Pulse Oximetry 94 Oxygen Delivery Room Air 04/01/22 10:00 04/01/22 12:00 04/01/22 12:00 Temperature 36.1 C L Pulse Rate 99 93 101 H Respiratory Rate 12 Blood Pressure 100/68 Pulse Oximetry 96 Oxygen Delivery 04/01/22 12:00 04/01/22 13:37 04/01/22 14:00 Temperature Pulse Rate 85 96 Respiratory Rate 16 Blood Pressure Pulse Oximetry 94 Oxygen Delivery Room Air 04/01/22 16:00 04/01/22 16:00 04/01/22 16:00 Temperature 36.4 C L Pulse Rate 87 100 Respiratory Rate 17 Blood Pressure 97/70 L Pulse Oximetry 94 95 Oxygen Delivery Room Air 04/01/22 18:00 04/01/22 20:00 04/01/22 20:00 Temperature Pulse Rate 102 H 84 84 Respiratory Rate 20 Blood Pressure Pulse Oximetry 97 Oxygen Delivery Room Air 04/01/22 20:10 04/01/22 20:00 04/01/22 20:00 Temperature 36.5 C Pulse Rate 93 91 92
[2022-04-02] MEDS: EPOETIN ALFA-EPBX 10,000 UNITS/ML VIAL 10000 UNITS SUB-Q (09:06)
[2022-04-02] MEDS: NYSTATIN 100,000 UNITS/ML SUSP 5 ML ORAL.SUSP PO ×4 (09:06→20:31)
[2022-04-02] MEDS: POTASSIUM CHLORIDE 20 MEQ TABLET.ER PO (09:07)
[2022-04-02] MEDS: ERGOCALCIFEROL 50,000 UNIT CAPSULE 50000 UNITS PO (09:07)
[2022-04-02] MEDS: calcitrioL 0.25 MCG CAPSULE PO (09:07)
[2022-04-02] MEDS: METOPROLOL SUCCINATE EXT REL 25 MG TABCR PO (09:08)
--- NOTE | 2022-04-02 09:51 | WPDGIPROGNO ---
Progress Note: A&P Assessment and Plan (1) Elevated liver enzymes: Code(s): R74.8 - Abnormal levels of other serum enzymes Status: Acute Assessment and Plan: The sudden dramatic increase in liver enzymes along with elevated lactic acid level suggests ischemic hepatopathy, ( shock liver) apparently his blood pressure was soft and antihypertensive medications have been reduced. The patient states that he actually stop some of them himself and his nephrology discontinued the others last week because the blood pressure was quite low. Even today his systolic blood pressure is running around the 90s I told that there is no specific treatment for his elevated liver enzymes. He denies use of alcohol or of acetaminophen. I would suspect that the transaminases will begin to come down over the next couple of days. Also follow his bilirubin to watch for signs of hepatic failure 03/30/2022 LFTs are not significantly changed. AST has come down to 739 but ALT increased slightly. Bilirubin remains normal. Elevated INR is a concern. He has not been on warfarin, there for this reflects his hepatopathy. I will give vitamin K. I explained to him how liver injury affects clotting factors and other synthetic and metabolic processes. 03/31/2022 transaminases are trending down. AST is 252, ALT 1084. Bilirubin remains normal. 04/02/2022 AST is normal an ALT down to 531. it appears that his marked enzyme elevation was due to hypotension. (2) End stage renal disease: Code(s): N18.6 - End stage renal disease Status: Chronic Assessment and Plan: he has been on peritoneal dialysis for some time, supposedly diabetic nephropathy 03/31/2022 the patient states that his peritoneal dialysis did not go well last night. The preparatory technician stated that the machine was not set up properly and the treatment had to be terminated early. 04/02/2022. He has finished peritoneal dialysis which he states went very well last night. He is feeling very good, more energy than he had. (3) Elevated troponin: Code(s): R77.8 - Other specified abnormalities of plasma proteins Status: Acute Assessment and Plan: cardiology has seen him and feels that the troponin levels are not related to cardiac issues (4) Diabetes: Code(s): E11.9 - Type 2 diabetes mellitus without complications Status: Acute Assessment and Plan: he has been insulin dependent. He has diabetic nephropathy 03/31/2022 this morning the patient mentioned that they seem to be drawing blood from him all night long. I reminded him that that is for blood glucose measurements, Relative 2 diabetes. Oddly, he states that he was not a diabetic (5) Pleural effusion: Code(s): J90 - Pleural effusion, not elsewhere classified Status: Acute Assessment and Plan: likely due to fluid overload. Thoracentesis is scheduled. Diuretics are being held. He was receiving diuresis however the soft blood pressure indicates that we should hold off on aggressive diuresis. 03/30/2022 thoracentesis on hold awaiting correction of coagulopathy. 04/02/2022 it appears he may not need thoracentesis based on what he has been told. Certainly his INR is low enough now that it could be safely done. (6) Hypotension: Code(s): I95.9 - Hypotension, unspecified Status: Acute Assessment and Plan: although he is normally hypertensive, his blood pressure has been soft and low since hospitalization and he states that it was apparently even lower when he was taken off of his blood pressure medications a week ago. This had think is the most probable reason for his shock liver, ischemic hepatopathy. (7) Elevated lactic acid level: Code(s): R79.89 - Other specified abnormal findings of blood chemistry Status: Acute Assessment and Plan: This supports the impression that he has ischemic hepatopathy. initially lac
--- NOTE | 2022-04-02 10:46 | PDONCCONNOTE ---
Impression Thrombocytopenia : differential diagnosis can be from infection or sepsis vs medication induced vs Liver failure vs consumption coagulopathy reccomend to check for PT, PTT and fibrinogen level to rule out DIC. Thrombocytopenia is common in acutely ill patients. I think his thrombocytopenia is from the acute liver injury and decrease the thrombopoietin production. resulting in diminished platelet production and release from the bone marrow, and increased platelet destruction or consumption. he has chronic anemia and stable. will have anemia work up with retic count, B12, folate and iron and ferritin level. as long as platelet count is above 20 K and no bleeding , he doesn't need the platelet transfusion xarelto can be resumed if there is indication as long as platelet count is above 75 K Plan : pls check for platelet antibody level. pls chec B12 , folate , iron and ferritin level. hopefully his platelet count will slowly trended up once his acute illness and liver failure is resolved. will follow up with patient . [facility] - Date/Time Seen 04/02/22 10:46 - History of Present Illness This is a 76-year-old male patient who has a history of end-stage renal disease and performs peritoneal dialysis at home came to ER with cough and fever an chills and lower extremity edema. hematology consult is for thrombocytopenia. his baseline platelet count was normal before this admission. over the last 5 days , he platelet counts trended down to around 100 K. His white count was noted to be 12.9. H&H is 9.0 in 29.9 which is his baseline. His anion gap is 18 BUN 54 creatinine 9.0. Lactic 5.0. Liver enzymes are elevated C reactive protein 5.0. BNP greater than 35,000. COVID is negative. Patient has persistant hypotension. Other comorbidities : pleural effusion moderately large right greater than left with bilateral lower lung infiltrate, compressive atelectasis. s/p thoracentesis with 600 ml of pleural fluid to rule out parapneumonic effusion as the etiology of the effusions. INR drifting down since holding Eliquis. For planned thoracentesis. Also received a dose of vitamin K on 03/30/2022. s/p treated for pneumonia. Peritoneal fluid was obtained and culture has been sent which his reviewed and no growth to date. elevated liver enzymes from ischemic hepatopathy from the heart failure or shock liver due to hypotensio anemia chronic disease related to CKD type 2 diabetes mellitus with diabetic nephropathy coronary artery disease status post stent moderate mitral regurgitation/mild aortic stenosis end-stage renal disease on peritoneal dialysis since June 2021 hypothyroidism congestive heart failure paroxysmal atrial fibrillation status post cardioversion x2 in the past. was on eliquis and now on hold - Medical History Medical History (Last Reviewed 03/29/22 @ 15:47 by Peter Gee MD) Anemia of chronic disease Arthritis Cataracts, bilateral Maturing Chronic kidney disease, stage 5 Chronic kidney disease, stage V Coronary artery disease History of non STEMI in May 2018 status post drug-eluting stent to the LAD. 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 custodial anticoagulation Diverticular hemorrhage Diverticulitis Erythropoietin deficiency anemia Heart failure with preserved ejection fraction Echocardiogram in June 2019 showed a severely enlarged left atrial chamber, normal left ventricular size with moderate concentric left ventricular hypertrophy, left ventricular function is at the lower end of normal with an estimated ejection fraction 50-55% (although calculated at 63%), no wall motion abnormalities, moderate aortic valve calcification with no significant stenosis, moderate to moderately severe eccentric mitral valve regurgitation, mild tricuspid valve regurgitation, estimated pulmonary arterial systolic pressure of 32 mmHg, dilated inferior vena cava with <50% collapse u
[2022-04-02 12:05] LABS: Glucose Point of Care 130 mg/dl (65-105)
--- NOTE | 2022-04-02 15:21 | PM.IMPN ---
Progress Note: A&P Assessment and Plan (1) Pleural effusion: Code(s): J90 - Pleural effusion, not elsewhere classified Status: Acute (2) Pneumonia: Code(s): J18.9 - Pneumonia, unspecified organism Status: Acute (3) Elevated troponin I level: Code(s): R77.8 - Other specified abnormalities of plasma proteins Status: Acute (4) Elevated liver enzymes: Code(s): R74.8 - Abnormal levels of other serum enzymes Status: Acute (5) Anemia of chronic disease: Code(s): D63.8 - Anemia in other chronic diseases classified elsewhere Status: Acute (6) Type 2 diabetes mellitus with diabetic nephropathy: Qualifiers: Diabetes mellitus 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 insulin use: without fpc use Qualified Code(s): E11.21 - Type 2 diabetes mellitus with diabetic nephropathy Code(s): E11.21 - Type 2 diabetes mellitus with diabetic nephropathy Status: Chronic (7) CKD (chronic kidney disease): Code(s): N18.9 - Chronic kidney disease, unspecified Status: Acute (8) Hypothyroidism: Qualifiers: Hypothyroidism type: acquired Qualified Code(s): E03.9 - Hypothyroidism, unspecified Code(s): E03.9 - Hypothyroidism, unspecified Status: Acute Assessment and Plan: (9) Hypercholesteremia: Code(s): E78.00 - Pure hypercholesterolemia, unspecified Status: Acute (10) CHF (congestive heart failure): Code(s): I50.9 - Heart failure, unspecified Status: Acute (11) Paroxysmal atrial fibrillation: Code(s): I48.0 - Paroxysmal atrial fibrillation Status: Acute (12) Hypertension: Qualifiers: Hypertension type: essential hypertension Qualified Code(s): I10 - Essential (primary) hypertension Code(s): I10 - Essential (primary) hypertension Status: Chronic Plan # pleural effusion moderately large right greater than left with bilateral lower lung infiltrate, compressive atelectasis. Likely fluid overloaded, he has been started on iv lasix. with minimal output. he was taken off 2L via PD. with lactic acidosis worsening, could also be related to some hypovolemia along with worsening liver enzymes. will hold off any diuresis today. leukocytosis worsened as well. will need to plan for thoracentesis to rule out parapneumonic effusion as the etiology of the effusions. INR drifting down since holding Eliquis. For planned thoracentesis. Also received a dose of vitamin K on 03/30/2022 Aggressive dialysis along with diuresis Peritoneal fluid was obtained and culture has been sent which his reviewed and no growth to date. obtain ultrasound chest to look at if there are any drainable fluid today. Pleural fluid studies ordered # pneumonia started on Rocephin and azithromycin for community-acquired pneumonia protocol. Sputum culture and other cultures sent. Lactic acid is elevated. COVID is negative. Bronchodilators azithromycin finished course Continue ceftriaxone # elevated lactic acid unclear etiology. Could be pneumonia related. Continue to follow. Respiratory culture with mixed bacterial caleb. Blood culture x2 no growth to date continue to monitor. Will get ultrasound-guided thoracentesis to rule out parapneumonic effusion / empyema which is getting done today # elevated troponin is likely related to underlying renal failure and congestive heart failure no chest pain. # elevated liver enzymes could be related to passive congestion from CHF. Monitor liver enzymes daily. Hold statin. Continues to worsen. Also has elevated lipase level. Right upper quadrant ultrasound plan today Elevated liver enzyme continues to worsen. Could be shock liver due to dehydration/borderline blood pressure Hold off on IV diuresis Consulted GI and appreciate his recommendations. Suggest ischemic hepatopathy as an etiology Continues to improve # anemia chronic disease related to CKD monitor counts no active
[2022-04-02 15:57] LABS: pH Pleural Fluid 7.482 (7.210-7.500)
[2022-04-02 16:50] LABS: Glucose Point of Care 117 mg/dl (65-105)
[2022-04-02 17:20] LABS: Appearance Pleural Fluid Bloody (Clear); Color Pleural Fluid Red (Colorless); Pleural fluid source Pleural fluid
[2022-04-02 17:21] LABS: Lymphocytes Pleural Fluid 25 %; Macrophages Pleural Fluid 25 %; Mesothelial Cells Pleural Flui 3 %; Monocytes Pleural Fluid 0 %; Neutrophils Pleural Fluid 47 % (0-25)
[2022-04-03] VITALS (22 sets, daily range): BP systolic 94–100; BP diastolic 52–70; PULSE 54–102; RESP 18–20; TEMP 35.8–36.7; O2SAT 94–100
[2022-04-03] MEDS: ALBUTEROL SULFATE NEB 2.5 MG/3 ML INH INHALATION ×4 (02:02→19:24)
[2022-04-03] MEDS: IPRATROPIUM BR 0.02% INH SOLN 0.5 MG/2.5 ML VIAL INHALATION ×4 (02:02→19:24)
[2022-04-03 05:27] LABS: Basophils Absolute Auto 0.1 K/mm3 (0.0-0.1); Basophils Percent Auto 0.7 % (0.2-1.2); Eosinophils Absolute Auto 0.4 K/mm3 (0-0.3); Eosinophils Percent Auto 4.7 % (0-4.4); Hematocrit 30.6 % (42.0-52.0); Hemoglobin 9.3 g/dL (14.0-18.0); Immature Granulocyte Absolute 0.15 K/mm3 (0.00-0.031); Immature Granulocyte Percent A 1.7 % (0-0.5); Lymphocytes Absolute Auto 1.27 K/mm3 (0.9-3.2); Lymphocytes Percent Auto 14.8 % (18.3-44.2); Mean Corpuscular HGB Conc 30.4 g/dl (32-36); Mean Corpuscular Hemoglobin 34.2 pg (26-34); Mean Corpuscular Volume 112.5 fl (80-100); Mean Platelet Volume 11.1 fl (7.4-10.4); Monocytes Absolute Auto 0.7 K/mm3 (0.1-0.6); Monocytes Percent Auto 8.5 % (2.6-8.5); Neutrophils Percent Auto 69.6 % (45.5-73.1); Nucleated Red Blood Cells Perc 0.5 % (0.0-0.2); Platelet Count Result 109 k/mm3 (150-375); Red Blood Count 2.72 M/mm3 (4.6-6.20); Red Cell Distribution Width 16.6 % (11.5-14.5); White Blood Count 8.6 K/mm3 (4.5-10.0)
[2022-04-03 05:44] LABS: Alanine Aminotransferase 394 U/L (6-50); Albumin Level 3.2 g/dL (3.5-5.1); Alkaline Phosphatase 75 U/L (38-126); Anion Gap 15 mmol/L (8-16); Aspartate Amino Transferase 37 U/L (17-59); Bilirubin,Total 0.7 mg/dL (0.2-1.3); Blood Urea Nitrogen 46 mg/dL (9-20); Calcium 8.4 mg/dL (8.4-10.2); Carbon Dioxide 28 mmol/L (22-30); Chloride 97 mmol/L (98-107); Estimated CRCL calculation 7 ml/min; Estimated Glomerular Filt Rate 6; Glucose 176 mg/dL (65-110); Magnesium 2.1 mg/dL (1.6-2.3); Phosphorus 7.6 mg/dL (2.5-4.5); Potassium 4.5 mmol/L (3.4-5.0); Sodium 140 mmol/L (137-145)
[2022-04-03 05:45] LABS: Macrocytosis 1+ (NORMAL); Platelet Estimate Decreased (Adequate)
--- NOTE | 2022-04-03 07:39 | PM.IMPN ---
Progress Note: A&P Assessment and Plan (1) Pleural effusion: Code(s): J90 - Pleural effusion, not elsewhere classified Status: Acute Assessment and Plan: Thoracentesis yesterday, restart Eliquis Not improving with diuresis or peritoneal dialysis Follow-up cytology from pleural fluid (2) Pneumonia: Code(s): J18.9 - Pneumonia, unspecified organism Status: Acute Assessment and Plan: Completed 5 day course of azithromycin, today is day 7 of Rocephin, will discontinue antibiotics after this dose (3) Elevated troponin I level: Code(s): R77.8 - Other specified abnormalities of plasma proteins Status: Acute Assessment and Plan: Do not suspect acute cardiac etiology, likely secondary to peritoneal dialysis, appreciate cardiology consultation (4) Elevated liver enzymes: Code(s): R74.8 - Abnormal levels of other serum enzymes Status: Acute Assessment and Plan: Secondary to hypovolemia and hypoperfusion, slowly improving Appreciate GI consultation, right upper quadrant ultrasound pending (5) Anemia of chronic disease: Code(s): D63.8 - Anemia in other chronic diseases classified elsewhere Status: Acute Assessment and Plan: Likely secondary to kidney disease, stable (6) Type 2 diabetes mellitus with diabetic nephropathy: Qualifiers: Diabetes mellitus dedicated 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 insulin use: without dedicated intermodal 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 use Qualified Code(s): E11.21 - Type 2 diabetes mellitus with diabetic nephropathy Code(s): E11.21 - Type 2 diabetes mellitus with diabetic nephropathy Status: Chronic Assessment and Plan: Controlled on diet alone in the outpatient setting, continue Accu-Cheks while here due to acute illness (7) CKD (chronic kidney disease): Code(s): N18.9 - Chronic kidney disease, unspecified Status: Acute Assessment and Plan: Appreciate nephrology consultation, continue peritoneal dialysis (8) Hypothyroidism: Qualifiers: Hypothyroidism type: acquired Qualified Code(s): E03.9 - Hypothyroidism, unspecified Code(s): E03.9 - Hypothyroidism, unspecified Status: Acute Assessment and Plan: On levothyroxine 75 mcg outpatient, currently being held, check TSH (9) Hypercholesteremia: Code(s): E78.00 - Pure hypercholesterolemia, unspecified Status: Acute Assessment and Plan: Stable (10) CHF (congestive heart failure): Code(s): I50.9 - Heart failure, unspecified Status: Acute Assessment and Plan: Appreciate cardiology and nephrology consultations Continue dialysis, hold off on diuresis for now (11) Paroxysmal atrial fibrillation: Code(s): I48.0 - Paroxysmal atrial fibrillation Status: Acute Assessment and Plan: AFib with mild RVR, appreciate cardiology consultation, continue beta-blockade with metoprolol History of cardioversion x2, Eliquis was held for thoracentesis, will restart today (12) Hypertension: Qualifiers: Hypertension type: essential hypertension Qualified Code(s): I10 - Essential (primary) hypertension Code(s): I10 - Essential (primary) hypertension Status: Chronic Plan DVT prophylaxis with Eliquis Code status full code Subjective Date/time seen: 04/03/22 07:39 Interval history: 04/03: Stable on room air. No overnight events noted. No chest pain or shortness of breath. No nausea, vomiting or diarrhea. No fevers or chills. Review of Systems Review of Systems: 12 point review of systems was assessed and was negative except as noted in the HPI Exam Narrative: General: No acute distress, alert and oriented per baseline HEENT: Atraumatic, normocephalic, mucous membranes moist CV: Regular rate and rhythm, S1, S2 Lungs: Clear to auscultation bilaterally, no rales or crackles noted, no wheezes, good air entry Abdomen: Soft, nontender, nondistended Extremities: Normal to inspectio
[2022-04-03] MEDS: METOPROLOL SUCCINATE EXT REL 25 MG TABCR PO (08:37)
[2022-04-03] MEDS: calcitrioL 0.25 MCG CAPSULE PO (08:37)
[2022-04-03 08:58] LABS: Thyroid Stimulating Hormone 0.033 uIU/mL (0.465-4.680)
--- NOTE | 2022-04-03 10:08 | PCNWS ---
Weekly nutritional screen. Patient is tolerating current renal dialysis diet with at least 75% adequate intake. Weight is stable. No nutritional needs at this time.
--- NOTE | 2022-04-03 11:39 | PCNSR ---
On 04/03/22, the student,Roro Jenkins, provided care and completed [facility] documentation on this patient. I have reviewed the student's documentation and agree with the findings.
[2022-04-03] MEDS: NYSTATIN 100,000 UNITS/ML SUSP 5 ML ORAL.SUSP PO ×3 (13:35→20:39)
[2022-04-03] MEDS: POTASSIUM CHLORIDE 20 MEQ TABLET.ER PO (14:43)
--- NOTE | 2022-04-03 16:05 | P.PNNP_ITS ---
Progress Note: A&P Assessment and Plan (1) End stage renal disease: Code(s): N18.6 - End stage renal disease Status: Chronic Assessment and Plan: * continue CCPD nightly * the patient looks euvolemic. * Potassium is normal. * Sodium is normal today (2) Pneumonia: Code(s): J18.9 - Pneumonia, unspecified organism Status: Acute Assessment and Plan: * as suggested by admission imaging * On Zithromax and ceftriaxone. * will add nystatin to prevent fungal infection per PD protocol * all cultures are negative (3) Pleural effusion: Code(s): J90 - Pleural effusion, not elsewhere classified Status: Acute Assessment and Plan: * also as demonstrated by imaging on presentation * fluid removal with peritoneal dialysis as tolerated * 600cc were removed yesterday. (4) (HFpEF) heart failure with preserved ejection fraction: Qualifiers: Heart failure chronicity: acute Qualified Code(s): I50.31 - Acute diastolic (congestive) heart failure Code(s): I50.30 - Unspecified diastolic (congestive) heart failure Status: Chronic Assessment and Plan: * known diastolic heart failure likely worsened by evidence of volume overload * He is tolerating the dialysis now as far as fluid removal. He had another 1100cc off Overnight (5) Anemia: Code(s): D64.9 - Anemia, unspecified Status: Chronic Assessment and Plan: * due to ESRD as well as acute illness * on Epogen 3x/week while hospitalized * Hemoglobin is up to 9.3 (6) Diabetes: Code(s): E11.9 - Type 2 diabetes mellitus without complications Status: Acute Assessment and Plan: * On Accu-Cheks and sliding scale per hospitalist. (7) Elevated transaminase level: Code(s): R74.01 - Elevation of levels of liver transaminase levels Status: Acute Assessment and Plan: possibly due to congestion. liver enzymes continue to drop. CK only slightly high. (8) Renal osteodystrophy: Code(s): N25.0 - Renal osteodystrophy Status: Acute Assessment and Plan: phosphorus level is high. Will start PhosLo 3 pills with each meal Subjective Date/time seen: 04/03/22 7:15 Interval history: Elias feels okay today. Not much shortness of breath and minimal cough. sitting up at the side of the bed. He is eating better. He got 1100 off last night. He disconnected himself and wrote the numbers down. Exam 2 Narrative: General: WD/WN male in NAD Heart: normal S1 and S2; no rub or gallop Lungs: mildly coarse at the bases Abdomen: soft, nontender, nondistended, positive bowel sounds Extremities: trace edema Skin: no acute rash or subcu nodules Objective Data Vital Signs Vital Signs: Vital Signs - 24 hr 04/02/22 16:09 04/02/22 16:09 04/02/22 16:37 Temperature 36.0 C L Pulse Rate 95 119 H 78 Respiratory Rate 18 18 20 Blood Pressure 97/83 L 92/74 L 80/64 L Pulse Oximetry 99 98 Oxygen Delivery 04/02/22 18:00 04/02/22 18:35 04/02/22 20:00 Temperature 36.6 C Pulse Rate 103 H 90 Respiratory Rate 18 Blood Pressure 97/64 L 92/57 L Pulse Oximetry 99 Oxygen Delivery 04/02/22 20:19 04/02/22
--- NOTE | 2022-04-03 16:05 | PM.PNNEP ---
Progress Note: A&P Assessment and Plan (1) End stage renal disease: Code(s): N18.6 - End stage renal disease Status: Chronic Assessment and Plan: continue CCPD nightly the patient looks euvolemic. Potassium is normal. Sodium is normal today (2) Pneumonia: Code(s): J18.9 - Pneumonia, unspecified organism Status: Acute Assessment and Plan: as suggested by admission imaging On Zithromax and ceftriaxone. will add nystatin to prevent fungal infection per PD protocol all cultures are negative (3) Pleural effusion: Code(s): J90 - Pleural effusion, not elsewhere classified Status: Acute Assessment and Plan: also as demonstrated by imaging on presentation fluid removal with peritoneal dialysis as tolerated 600cc were removed yesterday. (4) (HFpEF) heart failure with preserved ejection fraction: Qualifiers: Heart failure chronicity: acute Qualified Code(s): I50.31 - Acute diastolic (congestive) heart failure Code(s): I50.30 - Unspecified diastolic (congestive) heart failure Status: Chronic Assessment and Plan: known diastolic heart failure likely worsened by evidence of volume overload He is tolerating the dialysis now as far as fluid removal. He had another 1100cc off Overnight (5) Anemia: Code(s): D64.9 - Anemia, unspecified Status: Chronic Assessment and Plan: due to ESRD as well as acute illness on Epogen 3x/week while hospitalized Hemoglobin is up to 9.3 (6) Diabetes: Code(s): E11.9 - Type 2 diabetes mellitus without complications Status: Acute Assessment and Plan: On Accu-Cheks and sliding scale per hospitalist. (7) Elevated transaminase level: Code(s): R74.01 - Elevation of levels of liver transaminase levels Status: Acute Assessment and Plan: possibly due to congestion. liver enzymes continue to drop. CK only slightly high. (8) Renal osteodystrophy: Code(s): N25.0 - Renal osteodystrophy Status: Acute Assessment and Plan: phosphorus level is high. Will start PhosLo 3 pills with each meal Subjective Date/time seen: 04/03/22 7:15 Interval history: Elias feels okay today. Not much shortness of breath and minimal cough. sitting up at the side of the bed. He is eating better. He got 1100 off last night. He disconnected himself and wrote the numbers down. Exam Narrative: General: WD/WN male in NAD Heart: normal S1 and S2; no rub or gallop Lungs: mildly coarse at the bases Abdomen: soft, nontender, nondistended, positive bowel sounds Extremities: trace edema Skin: no acute rash or subcu nodules Objective Data Vital Signs Vital Signs: Vital Signs - 24 hr 04/02/22 16:09 04/02/22 16:09 04/02/22 16:37 Temperature 36.0 C L Pulse Rate 95 119 H 78 Respiratory Rate 18 18 20 Blood Pressure 97/83 L 92/74 L 80/64 L Pulse Oximetry 99 98 Oxygen Delivery 04/02/22 18:00 04/02/22 18:35 04/02/22 20:00 Temperature 36.6 C Pulse Rate 103 H 90 Respiratory Rate 18 Blood Pressure 97/64 L 92/57 L Pulse Oximetry 99 Oxygen Delivery 04/02/22 20:19 04/02/22 20:28 04/02/22 20:29 Temperature Pulse Rate 73 94 73 Respiratory Rate 20 20 Blood Pressure Pulse Oximetry 94 Oxygen Delivery Room Air 04/02/22 20:00 04/02/22 20:00 04/02/22 22:00 Temperature Pulse Rate 78 78 96 Respiratory Rate 20 Blood Pressure Pulse Oximetry 94 Oxygen Delivery Room Air 04/02/22 23:44 04/03/22 00:00 04/03/22 00:00 Temperature 36.6 C Pulse Rate 96 84 84 Respiratory Rate 18 18 Blood Pressure 93/54 L Pulse Oximetry 97 97 Oxygen Delivery Room Air 04/03/22 02:03 04/03/22 02:00 04/03/22 02:43 Temperature Pulse Rate 78 90 89 Respiratory Rate 18 18 Blood Pressure Pulse Oximetry Oxygen Delivery 04/03/22 04:0
[2022-04-03] MEDS: FUROSEMIDE 80 MG TABLET PO (16:10)
[2022-04-03] MEDS: APIXABAN 2.5 MG TABLET PO (20:39)
[2022-04-04] VITALS (14 sets, daily range): BP systolic 92–107; BP diastolic 67–75; PULSE 71–128; RESP 18–20; TEMP 36.1–36.9; O2SAT 94–99
[2022-04-04] MEDS: IPRATROPIUM BR 0.02% INH SOLN 0.5 MG/2.5 ML VIAL INHALATION ×2 (02:36→08:00)
[2022-04-04] MEDS: ALBUTEROL SULFATE NEB 2.5 MG/3 ML INH INHALATION ×2 (02:36→08:00)
[2022-04-04 05:32] LABS: Albumin Level 3.4 g/dL (3.5-5.1); Anion Gap 16 mmol/L (8-16); Blood Urea Nitrogen 49 mg/dL (9-20); Calcium 9.1 mg/dL (8.4-10.2); Carbon Dioxide 26 mmol/L (22-30); Chloride 96 mmol/L (98-107); Estimated CRCL calculation 7 ml/min; Estimated Glomerular Filt Rate 6; Glucose 133 mg/dL (65-110); Phosphorus 8.1 mg/dL (2.5-4.5); Potassium 4.1 mmol/L (3.4-5.0); Sodium 138 mmol/L (137-145)
--- NOTE | 2022-04-04 07:49 | PM.PNNEP ---
Progress Note: A&P Assessment and Plan (1) End stage renal disease: Code(s): N18.6 - End stage renal disease Status: Chronic Assessment and Plan: continue CCPD nightly the patient looks euvolemic. Potassium is 4.1 Sodium is good (2) Pneumonia: Code(s): J18.9 - Pneumonia, unspecified organism Status: Acute Assessment and Plan: as suggested by admission imaging On Zithromax and ceftriaxone. will add nystatin to prevent fungal infection per PD protocol all cultures are negative (3) Pleural effusion: Code(s): J90 - Pleural effusion, not elsewhere classified Status: Acute Assessment and Plan: also as demonstrated by imaging on presentation fluid removal with peritoneal dialysis as tolerated (4) (HFpEF) heart failure with preserved ejection fraction: Qualifiers: Heart failure chronicity: acute Qualified Code(s): I50.31 - Acute diastolic (congestive) heart failure Code(s): I50.30 - Unspecified diastolic (congestive) heart failure Status: Chronic Assessment and Plan: known diastolic heart failure likely worsened by evidence of volume overload systolic function is good (5) Anemia: Code(s): D64.9 - Anemia, unspecified Status: Chronic Assessment and Plan: due to ESRD as well as acute illness on Epogen 3x/week while hospitalized Hemoglobin is up to 10 (6) Diabetes: Code(s): E11.9 - Type 2 diabetes mellitus without complications Status: Acute Assessment and Plan: On Accu-Cheks and sliding scale per hospitalist. (7) Elevated transaminase level: Code(s): R74.01 - Elevation of levels of liver transaminase levels Status: Acute Assessment and Plan: possibly due to congestion. liver enzymes continue to drop. CK only slightly high. (8) Renal osteodystrophy: Code(s): N25.0 - Renal osteodystrophy Status: Acute Assessment and Plan: phosphorus level is high. Will start PhosLo 3 pills with each meal Subjective Date/time seen: 04/04/22 0750am Interval history: Elias feels better again today. eager for discharge. Not much shortness of breath and minimal cough. He is on PD. julia it well. seen at 750am Exam Narrative: General: WD/WN male in NAD Heart: normal S1 and S2; no rub or gallop Lungs: fairly clear Abdomen: soft, nontender, nondistended, positive bowel sounds Extremities: minimal edema Skin: no acute rash or subcu nodules Objective Data Vital Signs Vital Signs: Vital Signs - 24 hr 04/03/22 16:00 04/03/22 16:00 04/03/22 19:24 Temperature 35.8 C L Pulse Rate 100 70 96 Respiratory Rate 18 18 Blood Pressure 95/54 L Pulse Oximetry 94 Oxygen Delivery 04/03/22 19:24 04/03/22 19:38 04/03/22 20:00 Temperature 36.7 C Pulse Rate 100 80 Respiratory Rate 18 20 Blood Pressure 100/56 L Pulse Oximetry 97 97 Oxygen Delivery Room Air 04/03/22 20:00 04/03/22 20:00 04/03/22 21:53 Temperature Pulse Rate 93 93 96 Respiratory Rate 20 Blood Pressure Pulse Oximetry 97 Oxygen Delivery Room Air 04/03/22 22:55 04/04/22 00:00 04/04/22 00:00 Temperature 36.6 C Pulse Rate 97 100 100 Respiratory Rate 18 18 Blood Pressure 99/52 L Pulse Oximetry 99 99 Oxygen Delivery Room Air 04/04/22 02:00 04/04/22 02:36 04/04/22 02:50 Temperature Pulse Rate 96 85 90 Respiratory Rate 18 18 Blood Pressure Pulse Oximetry Oxygen Delivery 04/04/22 03:57 04/04/22 04:00 04/04/22 04:00 Temperature 36.5 C Pulse Rate 111 H 128 H 128 H Respiratory Rate 20 20 Blood Pressure 107/75 Pulse Oximetry 97 97 Oxygen Delivery Room Air 04/04/22 06:00 04/04/22 08:00 04/04/22 08:01 Temperature Pulse Rate 92 93 92 Respiratory Rate 18 Blood Pressure Pulse Oximetry 96 Oxygen Delivery Room Air 04/04/22 08:10 04/04/22 08:00
[2022-04-04] MEDS: METOPROLOL SUCCINATE EXT REL 25 MG TABCR PO (08:24)
[2022-04-04] MEDS: calcitrioL 0.25 MCG CAPSULE PO (08:25)
[2022-04-04] MEDS: APIXABAN 2.5 MG TABLET PO (08:25)
[2022-04-04] MEDS: ATORVASTATIN 40 MG TABLET PO (08:25)
[2022-04-04] MEDS: NYSTATIN 100,000 UNITS/ML SUSP 5 ML ORAL.SUSP PO ×2 (08:26→13:21)
[2022-04-04] MEDS: EPOETIN ALFA-EPBX 10,000 UNITS/ML VIAL 10000 UNITS SUB-Q (08:29)
--- NOTE | 2022-04-04 09:06 | PM.IMPN ---
Progress Note: A&P Assessment and Plan (1) Pleural effusion: Code(s): J90 - Pleural effusion, not elsewhere classified Status: Acute Assessment and Plan: Thoracentesis yesterday, 600 ml removed, restart Eliquis (2) Pneumonia: Code(s): J18.9 - Pneumonia, unspecified organism Status: Acute Assessment and Plan: Appears resolved, completed 5 day course of azithromycin and 7 day course of rocephin (3) Elevated troponin I level: Code(s): R77.8 - Other specified abnormalities of plasma proteins Status: Acute Assessment and Plan: Do not suspect acute cardiac etiology, likely secondary to peritoneal dialysis, appreciate cardiology consultation (4) Elevated liver enzymes: Code(s): R74.8 - Abnormal levels of other serum enzymes Status: Acute Assessment and Plan: Secondary to hypovolemia and hypoperfusion, slowly improving Appreciate GI consultation, no further recs needed at this time (5) Anemia of chronic disease: Code(s): D63.8 - Anemia in other chronic diseases classified elsewhere Status: Acute Assessment and Plan: Likely secondary to kidney disease, stable (6) Type 2 diabetes mellitus with diabetic nephropathy: Qualifiers: Diabetes mellitus senior living insulin use: without 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 use Qualified Code(s): E11.21 - Type 2 diabetes mellitus with diabetic nephropathy Code(s): E11.21 - Type 2 diabetes mellitus with diabetic nephropathy Status: Chronic Assessment and Plan: Controlled on diet alone in the outpatient setting, continue Accu-Cheks while here due to acute illness (7) CKD (chronic kidney disease): Code(s): N18.9 - Chronic kidney disease, unspecified Status: Acute Assessment and Plan: Appreciate nephrology consultation, continue peritoneal dialysis (8) Hypothyroidism: Qualifiers: Hypothyroidism type: acquired Qualified Code(s): E03.9 - Hypothyroidism, unspecified Code(s): E03.9 - Hypothyroidism, unspecified Status: Acute Assessment and Plan: On levothyroxine 75 mcg outpatient, currently being held, TSH was 0.033, FT4 was elevated at 3.47, T3 pending, suspect iatrogenic hyperthyroidism, recheck TFTs in 2 weeks, hold levothyroxine for now (9) Hypercholesteremia: Code(s): E78.00 - Pure hypercholesterolemia, unspecified Status: Acute Assessment and Plan: Stable (10) CHF (congestive heart failure): Code(s): I50.9 - Heart failure, unspecified Status: Acute Assessment and Plan: Appreciate cardiology and nephrology consultations Continue dialysis, hold off on diuresis for now (11) Paroxysmal atrial fibrillation: Code(s): I48.0 - Paroxysmal atrial fibrillation Status: Acute Assessment and Plan: AFib with mild RVR, appreciate cardiology consultation, continue beta-blockade with metoprolol History of cardioversion x2, Eliquis was held for thoracentesis, restarted yesterday (12) Hypertension: Qualifiers: Hypertension type: essential hypertension Qualified Code(s): I10 - Essential (primary) hypertension Code(s): I10 - Essential (primary) hypertension Status: Chronic Plan DVT prophylaxis with Eliquis Code status full code Subjective Date/time seen: 04/04/22 09:06 Interval history: No overnight events noted. No chest pain or shortness of breath. No nausea, vomiting or diarrhea. No fevers or chills. Review of Systems Review of Systems: 12 point review of systems was assessed and was negative except as noted in the HPI Exam Narrative: General: No acute distress, alert and oriented per baseline HEENT: Atraumatic, normocephalic, mucous membranes moist CV: Regular rate and rhythm, S1, S2 Lungs: Clear to auscultation bilaterally, no rales or crackles noted, no wheezes, good air entry Abdomen: Soft, nontender, nondistended Extremities: Normal to inspection
[2022-04-04 09:49] LABS: Basophils Absolute Auto 0.1 K/mm3 (0.0-0.1); Basophils Percent Auto 0.8 % (0.2-1.2); Eosinophils Absolute Auto 0.4 K/mm3 (0-0.3); Eosinophils Percent Auto 4.3 % (0-4.4); Hematocrit 33.2 % (42.0-52.0); Immature Granulocyte Absolute 0.14 K/mm3 (0.00-0.031); Immature Granulocyte Percent A 1.5 % (0-0.5); Lymphocytes Absolute Auto 1.23 K/mm3 (0.9-3.2); Lymphocytes Percent Auto 13.3 % (18.3-44.2); Mean Corpuscular HGB Conc 30.1 g/dl (32-36); Mean Corpuscular Hemoglobin 34.1 pg (26-34); Mean Corpuscular Volume 113.3 fl (80-100); Mean Platelet Volume 11.4 fl (7.4-10.4); Monocytes Absolute Auto 0.7 K/mm3 (0.1-0.6); Monocytes Percent Auto 7.5 % (2.6-8.5); Neutrophils Absolute Auto 6.7 K/mm3 (1.3-6.7); Neutrophils Percent Auto 72.6 % (45.5-73.1); Nucleated Red Blood Cells Perc 0.2 % (0.0-0.2); Platelet Count Result 127 k/mm3 (150-375); Red Blood Count 2.93 M/mm3 (4.6-6.20); Red Cell Distribution Width 16.9 % (11.5-14.5); White Blood Count 9.2 K/mm3 (4.5-10.0)
[2022-04-04 10:01] LABS: Alanine Aminotransferase 343 U/L (6-50); Albumin Level 3.3 g/dL (3.5-5.1); Alkaline Phosphatase 84 U/L (38-126); Anion Gap 17 mmol/L (8-16); Aspartate Amino Transferase 36 U/L (17-59); Bilirubin,Total 0.7 mg/dL (0.2-1.3); Blood Urea Nitrogen 48 mg/dL (9-20); Carbon Dioxide 25 mmol/L (22-30); Chloride 95 mmol/L (98-107); Estimated CRCL calculation 7 ml/min; Estimated Glomerular Filt Rate 6; Glucose 134 mg/dL (65-110); Potassium 4.2 mmol/L (3.4-5.0); Sodium 137 mmol/L (137-145)
--- NOTE | 2022-04-04 10:45 | PM.DS ---
DS: Admitting Diagnosis Discharge Date April 04, 2022 Admitting Diagnosis Cough with edema DS: Discharge Diagnosis Discharge Diagnosis (1) Pleural effusion: Code(s): J90 - Pleural effusion, not elsewhere classified Status: Acute Assessment and Plan: Thoracentesis yesterday, 600 ml removed, restart Eliquis (2) Pneumonia: Code(s): J18.9 - Pneumonia, unspecified organism Status: Acute Assessment and Plan: Appears resolved, completed 5 day course of azithromycin and 7 day course of rocephin (3) Elevated troponin I level: Code(s): R77.8 - Other specified abnormalities of plasma proteins Status: Acute Assessment and Plan: Do not suspect acute cardiac etiology, likely secondary to peritoneal dialysis, appreciate cardiology consultation (4) Elevated liver enzymes: Code(s): R74.8 - Abnormal levels of other serum enzymes Status: Acute Assessment and Plan: Secondary to hypovolemia and hypoperfusion, slowly improving Appreciate GI consultation, no further recs needed at this time (5) Anemia of chronic disease: Code(s): D63.8 - Anemia in other chronic diseases classified elsewhere Status: Acute Assessment and Plan: Likely secondary to kidney disease, stable (6) Type 2 diabetes mellitus with diabetic nephropathy: Qualifiers: Diabetes mellitus oysterman insulin use: without group home use Qualified Code(s): E11.21 - Type 2 diabetes mellitus with diabetic nephropathy Code(s): E11.21 - Type 2 diabetes mellitus with diabetic nephropathy Status: Chronic Assessment and Plan: Controlled on diet alone in the outpatient setting, continue Accu-Cheks while here due to acute illness (7) CKD (chronic kidney disease): Code(s): N18.9 - Chronic kidney disease, unspecified Status: Acute Assessment and Plan: Appreciate nephrology consultation, continue peritoneal dialysis (8) Hypothyroidism: Qualifiers: Hypothyroidism type: acquired Qualified Code(s): E03.9 - Hypothyroidism, unspecified Code(s): E03.9 - Hypothyroidism, unspecified Status: Acute Assessment and Plan: On levothyroxine 75 mcg outpatient, currently being held, TSH was 0.033, FT4 was elevated at 3.47, T3 pending, suspect iatrogenic hyperthyroidism, recheck TFTs in 2 weeks, hold levothyroxine for now (9) Hypercholesteremia: Code(s): E78.00 - Pure hypercholesterolemia, unspecified Status: Acute Assessment and Plan: Stable (10) CHF (congestive heart failure): Code(s): I50.9 - Heart failure, unspecified Status: Acute Assessment and Plan: Appreciate cardiology and nephrology consultations Continue dialysis, hold off on diuresis for now (11) Paroxysmal atrial fibrillation: Code(s): I48.0 - Paroxysmal atrial fibrillation Status: Acute Assessment and Plan: AFib with mild RVR, appreciate cardiology consultation, continue beta-blockade with metoprolol History of cardioversion x2, Eliquis was held for thoracentesis, restarted yesterday (12) Hypertension: Qualifiers: Hypertension type: essential hypertension Qualified Code(s): I10 - Essential (primary) hypertension Code(s): I10 - Essential (primary) hypertension Status: Chronic Plan DVT prophylaxis with Eliquis Code status full code DS: Summary Hospital Course Hospital Course: 76-year-old male past medical history significant for end-stage renal disease on peritoneal dialysis presenting with cough as well as lower extremity edema and malaise. He also noted some reduction in his urination. He is noted have a pleural effusion and thoracentesis was scheduled. He was also started on IV Lasix because he does make some urine for diuresis in between dialysis. He was started on Rocephin azithromycin as well as nebulizer treatments. Troponin was elevated was thought to be secondary to his
[2022-04-05 22:11] LABS: Hepatitis C Virus Antibody Negative (Negative)
[2022-04-05 22:21] LABS: Glucose Pleural Fluid 137 mg/dL; LDH Pleural Fluid 100 U/L; Total Protein Pleural Fluid <3.0 g/dL
[2022-04-07 11:46] LABS: Albumin Pleural Fluid 0.9 g/dL
[2022-04-07 13:12] LABS: Amylase, Pleural Fluid 13 U/L
== END 2022-04-04 13:25 | disposition home or self-care (01) | DRG 291 ==
LOC: ANHED 12:27 → ANHIMU 14:18
PROVIDERS: Internal Medicine; Internal Medicine Gastroenterology; Internal Medicine Nephrology; Nurse Practitioner; Nurse Practitioner Family; Admitting Provider Internal Medicine; Emergency Provider Emergency Medicine; PCP Family Medicine; Visit Provider Student in an Organized Health Care Education/Training Program
DX: I13.2 Hypertensive heart and chronic kidney disease with heart failure and with stage 5 chronic kidney disease, or end stage renal disease (principal); I50.33 Acute on chronic diastolic (congestive) heart failure; N18.6 End stage renal disease; J18.9 Pneumonia, unspecified organism; K72.00 Acute and subacute hepatic failure without coma; J90 Pleural effusion, not elsewhere classified; D68.9 Coagulation defect, unspecified; J98.11 Atelectasis; E87.2 Acidosis; E11.22 Type 2 diabetes mellitus with diabetic chronic kidney disease; E11.21 Type 2 diabetes mellitus with diabetic nephropathy; D63.1 Anemia in chronic kidney disease; R77.8 Other specified abnormalities of plasma proteins; E03.9 Hypothyroidism, unspecified; E78.00 Pure hypercholesterolemia, unspecified; I48.0 Paroxysmal atrial fibrillation; Z20.822 Contact with and (suspected) exposure to COVID-19; M19.90 Unspecified osteoarthritis, unspecified site; I25.10 Atherosclerotic heart disease of native coronary artery without angina pectoris; I95.9 Hypotension, unspecified; I35.0 Nonrheumatic aortic (valve) stenosis; E66.01 Morbid (severe) obesity due to excess calories; D72.829 Elevated white blood cell count, unspecified; Z68.33 Body mass index [BMI] 33.0-33.9, adult; Z79.01 Long term (current) use of anticoagulants; I25.2 Old myocardial infarction; Z87.442 Personal history of urinary calculi; Z87.11 Personal history of peptic ulcer disease; Z85.53 Personal history of malignant neoplasm of renal pelvis; Z90.49 Acquired absence of other specified parts of digestive tract; Z87.891 Personal history of nicotine dependence; Z99.2 Dependence on renal dialysis; Z95.5 Presence of coronary angioplasty implant and graft
CPT/HCPCS: 32555; 36415; 36600; 71045; 71046; 71250; 74176; 76604; 76705; 80053; 80069; 82042; 82140; 82150; 82550; 82805; 82945; 82948; 83036; 83605; 83615; 83690; 83735; 83880; 83986; 84100; 84157; 84311; 84439; 84443; 84478; 84484; 85025; 85610; 85730; 86140; 86706; 86803; 87040; 87070; 87075; 87205; 87340; 89051; 90945; 93005; 94640; 94667; 94668; 96374; 97161; 97165; 99285; A9270; C9803; J0456; J0696; J1815; J1940; J2270; J2405; J2765; Q5105; U0003; U0005

== ENCOUNTER 2022-06-26 15:49 | Emergency (ER) | payer MEDICARE, SELFPAY ==
--- NOTE | ~2022-06-26 | CT_ITS ---
EXAMINATION: CT cervical spine wo con DATE: 06/26/2022 17:21 INDICATION: fall TECHNIQUE: Computed tomography (CT) of the cervical spine was performed without intravenous contrast. Automated exposure control and iterative reconstruction technique were employed. The dose-length pro duct was 456.80 mGy-cm. COMPARISON: MR C-spine 05/11/2015 FINDINGS: Vertebral Body Alignment: Intact. Multilevel degenerative listheses. Craniocervical and atlantoaxial alignment: Moderate degenerative change with pannus formation. Alignm ent intact. Osseous structures/fracture: No evidence of a lytic or blastic process in the visualized spine. No e vidence of acute fracture. Cervical soft tissues: The paraspinal soft tissues planes are maintained. Aortic arch ectasia and ath erosclerotic calcification small left and moderate right pleural fluid collections. Mild interstitial edema. Degenerative changes: Multilevel severe degenerative disc disease and facet arthropathy. Multilevel s evere bilateral neural foraminal narrowing. Multilevel severe central canal narrowing. IMPRESSION: No acute fracture or traumatic malalignment in the cervical spine. Reviewed, dictated and finalized at [facility]. [facility]
--- NOTE | ~2022-06-26 | CT_ITS ---
EXAMINATION: CT brain wo con DATE: 06/26/2022 17:21 INDICATION: Head injury from a fall TECHNIQUE: Computed tomography (CT) of the head was performed without intravenous contrast. The mA wa s adjusted according to patient size. Iterative reconstruction technique was employed. Exam dose: 60 5.33 mGy-cm total exam DLP. COMPARISON: 11/30/2017 CT brain FINDINGS: High right posterior parietal cephalohematoma is noted, without evidence of skull fracture. No coup or contrecoup or other acute intracranial abnormality is noted. No midline shift or mass eff ect, contusion, hemorrhage, midline shift or mass effect effect. There is prominent bilateral vertebral artery, basilar artery and prominent bilateral carotid siphon internal carotid artery calcification. There is nonspecific diminished attenuation of the cerebral wh ite matter, likely due to chronic small vessel ischemic changes. No subdural or epidural hematoma. There is moderate cerebral and cerebellar volume loss. Included paranasal sinuses and mastoid air charlie ls are unremarkable. IMPRESSION: High right posterior parietal cephalohematoma without evidence of skull fracture or acut e intracranial finding Reviewed, dictated and finalized at [facility]. Reviewed, dictated and finalized at location [facility]. ER ATTENDANT IMPRESSION: High right posterior parietal cephalohematoma without evidence of skull fracture or acute intracranial finding
[2022-06-26 16:52] VITALS: BP 99/64; PULSE 101; RESP 16; TEMP 36.6; O2SAT 97
--- NOTE | 2022-06-26 17:15 | PC.NURSE ---
pt in ct at this time. will go to room 22 upon completion
[2022-06-26 17:32] VITALS: BP 105/71; PULSE 53; RESP 16; O2SAT 94
--- NOTE | 2022-06-26 17:33 | ED.FALL ---
HPI - Fall General Chief Complaint: Fall Stated Complaint: fall, hit head Time Seen by Provider: 06/26/22 17:16 Source: RN notes reviewed History of Present Illness HPI Narrative: Patient presents emergency room from home for fall. Patient states that there is 2 steps up into the front door where he was states that he does have problems with stairs and is supposed to be waiting for help with the stairs but did not wait today he states he tried to step onto the stair lost his balance and fell backwards striking his head. States he has some swelling and bruising over his posterior scalp he is not having loss of consciousness states that he is on blood thinners and want to come to the ER for further evaluation he denies any vision changes numbness or tingling the extremities, chest pain, shortness of breath abdominal pain or any attempted pain patient is on Eliquis. Patient has been up ambulating since he fell Related Data Home Medications Medication Instructions Recorded Confirmed calcitriol 0.25 mcg capsule 0.25 mcg PO DAILY 11/12/21 05/20/22 atorvastatin 40 mg tablet 40 mg PO DAILY 03/27/22 05/20/22 furosemide 80 mg tablet 80 mg PO 1500 03/27/22 05/20/22 metoprolol succinate 25 mg 25 mg PO DAILY 03/27/22 05/20/22 tablet,extended release 24 hr Allergies Allergy/AdvReac Type Severity Reaction Status Date / Time No Known Allergies Allergy Unknown Verified 06/26/22 17:27 Review of Systems Review of Systems: Gen.: Denies fevers or chills Eyes: Denies vision changes HEENT: Reports striking head Respiratory: Denies shortness of breath or cough CV: Denies chest pain or palpitations GI: Denies abdominal pain nausea, emesis Musculoskeletal: Denies back pain or muscle pain Neuro: Denies numbness, tingling, weakness or focal weakness Skin: Denies rash Except as documented, all other systems reviewed and negative [facility] Past Medical History Medical History Anemia of chronic disease Arthritis Cataracts, bilateral Maturing Chronic kidney disease, stage 5 Chronic kidney disease, stage V Coronary artery disease History of non STEMI in May 2018 status post drug-eluting stent to the LAD. 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 political analyst anticoagulation Diverticular hemorrhage Diverticulitis Erythropoietin deficiency anemia Heart failure with preserved ejection fraction Echocardiogram in June 2019 showed a severely enlarged left atrial chamber, normal left ventricular size with moderate concentric left ventricular hypertrophy, left ventricular function is at the lower end of normal with an estimated ejection fraction 50-55% (although calculated at 63%), no wall motion abnormalities, moderate aortic valve calcification with no significant stenosis, moderate to moderately severe eccentric mitral valve regurgitation, mild tricuspid valve regurgitation, estimated pulmonary arterial systolic pressure of 32 mmHg, dilated inferior vena cava with <50% collapse upon inspiration consistent with elevated right atrial pressure, 10 mmHg., transesophageal echocardiogram September 2019 demonstrated moderate mitral valve regurgitation with stable EF History of atrial fibrillation History of cardioversion x2 Hypercholesteremia Hypertension Hypothyroidism Kidney stones (~2008) Mitral regurgitation Paroxysmal atrial fibrillation Status post cardioversion in October 2019 and February 2020. 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 Renal osteodystrophy Seasonal allergies Shoulder weakness Stenosis, cervical spine Type 2 diabetes mellitus Now diet controlled. Hemoglobin A1c 5.7 11/13/2020 Type 2 diabetes mellitus with diabetic nephropathy Surgical History Surgical History History of appendectomy 1974 History of cardiac catheterization (~05/2018) Totally occlude LAD sta
== END 2022-06-26 17:45 | disposition home or self-care (01) ==
PROVIDERS: Emergency Provider Emergency Medicine; PCP Family Medicine
DX: S00.03XA Contusion of scalp, initial encounter (principal); E11.22 Type 2 diabetes mellitus with diabetic chronic kidney disease; I12.0 Hypertensive chronic kidney disease with stage 5 chronic kidney disease or end stage renal disease; N18.5 Chronic kidney disease, stage 5; D63.1 Anemia in chronic kidney disease; I25.2 Old myocardial infarction; I25.10 Atherosclerotic heart disease of native coronary artery without angina pectoris; I48.0 Paroxysmal atrial fibrillation; E78.00 Pure hypercholesterolemia, unspecified; E03.9 Hypothyroidism, unspecified; E11.21 Type 2 diabetes mellitus with diabetic nephropathy; N25.0 Renal osteodystrophy; I34.0 Nonrheumatic mitral (valve) insufficiency; Z86.711 Personal history of pulmonary embolism; Z99.2 Dependence on renal dialysis; Z85.528 Personal history of other malignant neoplasm of kidney; Z87.891 Personal history of nicotine dependence; Z79.01 Long term (current) use of anticoagulants; W10.9XXA Fall (on) (from) unspecified stairs and steps, initial encounter
CPT/HCPCS: 70450; 72125; 99284

== ENCOUNTER 2022-07-09 08:59 | Inpatient (IN) | payer MEDICARE, SELFPAY ==
[2022-07-09] VITALS (39 sets, daily range): BP systolic 81–124; BP diastolic 60–91; PULSE 75–133; RESP 14–27; TEMP 35.9–36.8; O2SAT 91–100; BMI 30.5
--- NOTE | ~2022-07-09 | XR_ITS ---
XR chest 2V 07/09/2022 10:00 Indication: Weakness Procedure: AP and lateral views of the chest Comparison: Comparison to multiple prior studies sequentially, with oldest reviewed study dated 01/15. Findings: There is a large bore central venous catheter, tip in the SVC. Heart size upper normal. Sma ll left pleural effusion. No focal pneumonia, edema or pneumothorax. No acute osseous abnormality. Impression: 1: Small left pleural effusion. Reviewed, dictated and finalized at location B. HEAD Impression: 1: Small left pleural effusion.
--- NOTE | 2022-07-09 09:17 | ECG_ITS ---
Measurements Intervals [place] Rate: 124 P: [place]: 0 QRS: 17 QRSD: 132 T: 134 QT: 319 QTc: 459 Interpretive Statements ATRIAL FIBRILLATION WITH RAPID VENTRICULAR RESPONSE VENTRICULAR PREMATURE COMPLEX LEFT BUNDLE BRANCH BLOCK BASELINE ARTIFACT- I, AVR, AVL, V4 ABNORMAL ECG COMPARED TO ECG 03/27/2022 11:44:29 HEART RATE HAS INCREASED Electronically Signed On 07-09-2022 13:57:03 AUTOMATION DEVELOPER by Vikram Ochoa D.O.
[2022-07-09 09:53] LABS: Basophils Absolute Auto 0.1 K/mm3 (0.0-0.1); Basophils Percent Auto 0.5 % (0.2-1.2); Eosinophils Absolute Auto 0.1 K/mm3 (0-0.3); Eosinophils Percent Auto 0.4 % (0-4.4); Hematocrit 43.5 % (42.0-52.0); Hemoglobin 13.9 g/dL (14.0-18.0); Immature Granulocyte Absolute 0.42 K/mm3 (0.00-0.031); Immature Granulocyte Percent A 2.5 % (0-0.5); Lymphocytes Absolute Auto 1.63 K/mm3 (0.9-3.2); Lymphocytes Percent Auto 9.9 % (18.3-44.2); Mean Corpuscular Hemoglobin 33.5 pg (26-34); Mean Corpuscular Volume 104.8 fl (80-100); Mean Platelet Volume 11.1 fl (7.4-10.4); Monocytes Percent Auto 6.2 % (2.6-8.5); Neutrophils Absolute Auto 13.3 K/mm3 (1.3-6.7); Neutrophils Percent Auto 80.5 % (45.5-73.1); Platelet Count Result 190 k/mm3 (150-375); Red Blood Count 4.15 M/mm3 (4.6-6.20); Red Cell Distribution Width 17.2 % (11.5-14.5); White Blood Count 16.5 K/mm3 (4.5-10.0)
[2022-07-09 10:06] LABS: Alanine Aminotransferase 56 U/L (6-50); Albumin Level 4.3 g/dL (3.5-5.1); Alkaline Phosphatase 99 U/L (38-126); Anion Gap 24 mmol/L (8-16); Aspartate Amino Transferase 78 U/L (17-59); Bilirubin,Total 1.9 mg/dL (0.2-1.3); Blood Urea Nitrogen 29 mg/dL (9-20); Carbon Dioxide 16 mmol/L (22-30); Chloride 97 mmol/L (98-107); Estimated CRCL calculation 12 ml/min; Estimated Glomerular Filt Rate 11; Glucose 160 mg/dL (65-110); Potassium 6.3 mmol/L (3.4-5.0); Sodium 137 mmol/L (137-145)
[2022-07-09] MEDS: METOPROLOL TARTRATE INJ 5 MG/5 ML VIAL IV PUSH (10:43)
--- NOTE | 2022-07-09 11:01 | PC.NURSE ---
2.5MG METOPROLOL ADMINISTERED AT 1027, ANOTHER 2.5 ADMINISTERED AT 1100. GIVEN SLOWLY DUE TO PT BLOOD PRESSURE. [place].
--- NOTE | 2022-07-09 11:02 | ED.WEAKNESS ---
HPI - Weakness General Chief complaint: Weakness Stated complaint: weakness, elevated HR Time Seen by Provider: 07/09/22 09:13 Source: patient Mode of arrival: ambulatory Limitations: no limitations History of Present Illness HPI Narrative: This is a 76 year old male that presents to the ER for generalized weakness. He has history of ESRD. Last dialysis on Friday. Reports he was supposed to get his dialysis today. He was noted to be in Afib with RVR so they sent him to the ER for further management. Does report he has been having some trouble with his blood pressure and recently had his dose of Midodrine increased. He thinks that he has maybe been in Afib for a couple of days because he has been feeling weak. He otherwise has no focal complaints. Denies fever, cough, chest pain, shortness of breath, abdominal pain, vomiting. Related Data Home Medications Medication Instructions Recorded Confirmed calcitriol 0.25 mcg capsule 0.25 mcg PO DAILY 11/12/21 05/20/22 atorvastatin 40 mg tablet 40 mg PO DAILY 03/27/22 05/20/22 furosemide 80 mg tablet 80 mg PO 1500 03/27/22 05/20/22 metoprolol succinate 25 mg 25 mg PO DAILY 03/27/22 05/20/22 tablet,extended release 24 hr Allergies Allergy/AdvReac Type Severity Reaction Status Date / Time No Known Allergies Allergy Unknown Verified 06/26/22 17:27 Review of Systems Review of Systems: CONSTITUTIONAL: Denies fever CARDIOVASCULAR: Denies chest pain, or edema. RESPIRATORY: Denies cough or dyspnea. GASTROINTESTINAL: Denies abdominal pain, nausea, vomiting NEUROLOGIC: Reports generalized weakness. All systems reviewed & are unremarkable except as noted in HPI and below [facility]LY [facility] Past Medical History Medical History (Updated 07/09/22 @ 14:22 by Mohini Villarreal PA-C) Anemia of chronic disease Arthritis Cataracts, bilateral Maturing Cervical spinal stenosis Coronary artery disease History of non STEMI in May 2018 status post drug-eluting stent to the LAD. 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 Diabetic peripheral neuropathy Diverticular hemorrhage Diverticulitis End-stage renal disease on hemodialysis Erythropoietin deficiency anemia Heart failure with preserved ejection fraction Echocardiogram in June 2019 showed a severely enlarged left atrial chamber, normal left ventricular size with moderate concentric left ventricular hypertrophy, left ventricular function is at the lower end of normal with an estimated ejection fraction 50-55% (although calculated at 63%), no wall motion abnormalities, moderate aortic valve calcification with no significant stenosis, moderate to moderately severe eccentric mitral valve regurgitation, mild tricuspid valve regurgitation, estimated pulmonary arterial systolic pressure of 32 mmHg, dilated inferior vena cava with <50% collapse upon inspiration consistent with elevated right atrial pressure, 10 mmHg., transesophageal echocardiogram September 2019 demonstrated moderate mitral valve regurgitation with stable EF Hypercholesteremia Hypertension Hypothyroidism Kidney stones (~2008) Mitral regurgitation Paroxysmal atrial fibrillation Status post cardioversion in October 2019 and February 2020. 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 Hemoglobin A1c 5.7 11/13/2020 Surgical History Surgical History (Updated 07/09/22 @ 12:36 by Maya Castorena PA-C) History of appendectomy 1975 History of cardiac catheterization (~05/2018) Totally occlude LAD status post drug-eluting stent. Additional findings include high-grade stenosis of non dominant left circumflex, diffuse disease of the ramus intermedius, right posterior lateral branch with 30% distal stenosis, and diffuse but nonocclusive disease of a large dominant right coronary artery. History of cardioversion x2 History of tonsillectomy Peritoneal dialysis cat
[2022-07-09] MEDS: SODIUM ZIRCONIUM CYCLOSILICATE 10 GM POWD.PACK PO (11:22)
[2022-07-09 11:33] LABS: Influenza A QL RT-PCR Negative (Negative); Influenza B QL RT-PCR Negative (Negative); RSV RNA, RT-PCR Negative (Negative); SARS-CoV-2 RNA PCR Negative
--- NOTE | 2022-07-09 12:50 | PM.IMHP ---
H&P: HPI History of Present Illness Date/Time: 07/09/22 12:50 Chief Complaint: Weakness. Narrative: This is a very pleasant 76-year-old male with end-stage renal disease, paroxysmal atrial fibrillation, coronary artery disease status post drug-eluting stent to the LAD in May 2018, hypertension, hyperlipidemia, mitral valve regurgitation, congestive heart failure, chronic anemia, and type 2 diabetes mellitus who presented to the emergency department for evaluation of weakness. He started on peritoneal dialysis about a year ago which ?has been a disaster? and he transition to hemodialysis in the last couple of weeks. Since that time he has been having low blood pressures which is surprising to him as he typically runs in the 150 systolic. He was started on midodrine and had that dose doubled a few days ago due to persistent low blood pressures. The last few days he has felt increasingly weak with little energy and when he went to dialysis today he was found to have systolic blood pressures in the 80s with a rapid, irregular heartbeat and he was sent to the ER where he was found to be in atrial fibrillation with rapid ventricular response. He has no sensations of racing heart or palpitations but he goes on to say that only way he typically knows he is in AFib is due to weakness and some mild shortness of breath. He was given a dose of metoprolol in the emergency department with improvement in his rate. Labs were significant for potassium was 6.3, chloride 97, carbon dioxide 16, anion gap 24, mild elevation LFTs, and lactic acid 8.4. He is being admitted in this setting for dialysis and further evaluation. With further questioning he has not had any recent illnesses any specifically denies fever, chills, sweats, cold and flu symptoms, nausea, vomiting, diarrhea, and dysuria (he does still urinate a small amount a day). Review of Systems Review of Systems: Twelve systems were reviewed and are negative except for as per HPI. [facility] Past Medical History Medical History Anemia of chronic disease Arthritis Cataracts, bilateral Maturing Cervical spinal stenosis Coronary artery disease History of non STEMI in May 2018 status post drug-eluting stent to the LAD. 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 Diabetic peripheral neuropathy Diverticular hemorrhage Diverticulitis End-stage renal disease on hemodialysis Erythropoietin deficiency anemia Heart failure with preserved ejection fraction Echocardiogram in June 2019 showed a severely enlarged left atrial chamber, normal left ventricular size with moderate concentric left ventricular hypertrophy, left ventricular function is at the lower end of normal with an estimated ejection fraction 50-55% (although calculated at 63%), no wall motion abnormalities, moderate aortic valve calcification with no significant stenosis, moderate to moderately severe eccentric mitral valve regurgitation, mild tricuspid valve regurgitation, estimated pulmonary arterial systolic pressure of 32 mmHg, dilated inferior vena cava with <50% collapse upon inspiration consistent with elevated right atrial pressure, 10 mmHg., transesophageal echocardiogram September 2019 demonstrated moderate mitral valve regurgitation with stable EF Hypercholesteremia Hypertension Hypothyroidism Kidney stones (~2008) Mitral regurgitation Paroxysmal atrial fibrillation Status post cardioversion in October 2019 and February 2020. 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 Hemoglobin A1c 5.7 11/13/2020 Surgical History Surgical History History of appendectomy 1975 History of cardiac catheterization (~05/2018) Totally occlude LAD status post drug-eluting stent. Additional findings include high-g
[2022-07-09 13:41] LABS: Lactic Acid Reflex 8.4 mmol/L (0.7-2.0)
[2022-07-09 13:43] LABS: Alveolar/Arterial O2 Gradient 26.8 mmHg; Base Excess ABG -7.8 mEq/l (+/-2.0); Carboxyhemoglobin 0.4 % THb (0-2.0); Fractional Inspired Oxygen 21 %; HCO3 ABG 13.9 mEq/l (22.0-26.0); Methemoglobin ABG 0.3 %THb (0-1.5); Oxygen Saturation ABG 97.9 % (95.0-100.0); Oxyhemoglobin 95.9 % THb (90.0-100.0); PO2 ABG 98.3 mmHg (80.0-100.0); PO2 FiO2 Ratio Arterial Blood 4.68 %; Reduced Hemoglobin 3.4 %THb (0-5.0); Total Hemoglobin 13.3 g/dL (12.0-18.0); pH ABG 7.447 (7.350-7.450)
[2022-07-09 13:45] LABS: Device ROOM AIR; Modified Allen's Test Pass; PCO2 ABG 20.6 mmHg (35.0-45.0); Site Drawn RIGHT RADIAL
--- NOTE | 2022-07-09 14:20 | PM.CNNEP ---
Assessment and Plan Assessment and plan (1) End stage renal disease: Code(s): N18.6 - End stage renal disease Status: Chronic Assessment and Plan: HD today plan next HD on Friday due to holiday schedule follow electrolytes, volume status, and clearance (2) Hyperkalemia: Code(s): E87.5 - Hyperkalemia Status: Acute Assessment and Plan: should correct with medical management and dialysis today due to dietary indiscretion(?) follow trend of K+ (3) Atrial fibrillation with rapid ventricular response: Code(s): I48.91 - Unspecified atrial fibrillation Status: Acute Assessment and Plan: noted on admission with RVR presumed etiology of weakness rate control strategy medication options (i.e. increase in metoprolol) may be limited by his hypotension on anticoagulation (on Elliquis) consider Cardiology consultation (4) Hypotension: Code(s): I95.9 - Hypotension, unspecified Status: Acute Assessment and Plan: somewhat of a new issue midodrine dosage has recently been increased follow trend of hemodynamics (5) Diabetes: Code(s): E11.9 - Type 2 diabetes mellitus without complications Status: Acute Assessment and Plan: well controlled follow glucose readings on AM labs Will continue to follow. History of Present Illness Reason for Consult Consult date: 07/09/22 Reason for consult: end stage renal disease and hyperkalemia Chief Complaint Chief complaint: Hyperkalemia/Afib with RVR History of Present Illness Narrative: The patient is a 76-year-old male with a past medical history as outlined below who presented to [facility] Emergency room for further evaluation of weakness. The patient recently transitioned to hemodialysis from peritoneal dialysis as peritoneal dialysis did not seem to be working very well for him in general. Since his transition to hemodialysis, he has had issues and problems with relative hypotension necessitating the use of midodrine therapy. Along with this, he has noticed the last few days to be increasingly weak with little energy. When he went to dialysis earlier today, he noticed his systolic BP was in the 80s with a rapid irregular heartbeat thought to be atrial fibrillation. Due to this finding and his symptoms, he presented to the emergency room for further assessment. Workup and evaluation emergency room demonstrated patient's blood pressure to be somewhat better in the 90 systolic and he was found to be indeed in atrial fibrillation with RVR. He reported no sensation of heart racing or palpitations Miriam did report some mild shortness of breath which apparently has been his symptom in the past when he has atrial fibrillation with RVR. The he was given a dose of IV metoprolol in the emergency room with improvement in his heart rate and routine blood tests were also done which demonstrated labs consistent with his known history of end-stage renal disease but he had hyperkalemia with a potassium of 6.3 Rosa of mildly elevated liver function tests, and a lactic acidosis. Given these findings, he was admitted the hospital for further evaluation and therapy. Currently, at the time of my visit, the patient is receiving dialysis and appears to be tolerating fairly well (he was seen on dialysis at 4:10 p.m.). Upon further questioning he denies any recent illnesses, sick contacts, fevers, chills, nausea, vomiting, diarrhea, or any other symptoms. Renal consultation was requested due to his history of end-stage renal disease. The patient is somewhat familiar to me as I have taken care of him for with regard to his kidney disease. As already mentioned above, he was initiated on renal replacement therapy via peritoneal dialysis but since he has been on that modality, he has had nothing but issues and problems in general. Just recently, he transition from peritoneal dialysis to hemod
[2022-07-09 16:08] LABS: Hepatitis B Surface Antigen Negative (Negative)
[2022-07-09 16:21] LABS: Reflex Lactic Acid Yes or No Add Lactic
[2022-07-09 16:33] LABS: Hepatitis B Surface Anti Res Positive
--- NOTE | 2022-07-09 18:13 | ADMGEN ---
This patient, Elias Aguirre, was admitted to IMU Room 206-01. Patient/family oriented to hospital policies and general routines including ID bracelet, bed and alarms, visiting hours, pain management, procedures, bathroom and other care routines, personal items, smoking policy, room service/diet, and visiting hours. Information on how to activate the Rapid Response Team has been discussed. Patient/Family are encouraged to report perceived risks to care and to ask questions if they do not understand what they are told or what they should do.
[2022-07-09 21:44] LABS: Anion Gap 7 mmol/L (8-16); Blood Urea Nitrogen 14 mg/dL (9-20); Calcium 8.2 mg/dL (8.4-10.2); Carbon Dioxide 29 mmol/L (22-30); Chloride 97 mmol/L (98-107); Estimated CRCL calculation 23 ml/min; Estimated Glomerular Filt Rate 25; Glucose 103 mg/dL (65-110); Potassium 3.9 mmol/L (3.4-5.0); Sodium 133 mmol/L (137-145)
[2022-07-09 21:45] LABS: Lactic Acid Reflex 2.6 mmol/L (0.7-2.0)
[2022-07-09] MEDS: APIXABAN 2.5 MG TABLET PO (22:17)
[2022-07-10] VITALS (18 sets, daily range): BP systolic 82–124; BP diastolic 63–82; PULSE 89–118; RESP 16–18; TEMP 36.2–36.6; O2SAT 91–100
[2022-07-10 04:59] LABS: Hematocrit 34.7 % (42.0-52.0); Hemoglobin 11.3 g/dL (14.0-18.0); Mean Corpuscular HGB Conc 32.6 g/dl (32-36); Mean Corpuscular Hemoglobin 33.7 pg (26-34); Mean Corpuscular Volume 103.6 fl (80-100); Mean Platelet Volume 11.3 fl (7.4-10.4); Platelet Count Result 129 k/mm3 (150-375); Red Blood Count 3.35 M/mm3 (4.6-6.20); Red Cell Distribution Width 16.9 % (11.5-14.5); White Blood Count 9.4 K/mm3 (4.5-10.0)
[2022-07-10 05:15] LABS: Alanine Aminotransferase 82 U/L (6-50); Albumin Level 3.3 g/dL (3.5-5.1); Alkaline Phosphatase 73 U/L (38-126); Anion Gap 11 mmol/L (8-16); Aspartate Amino Transferase 110 U/L (17-59); Bilirubin,Total 1.4 mg/dL (0.2-1.3); Blood Urea Nitrogen 15 mg/dL (9-20); Calcium 8.3 mg/dL (8.4-10.2); Carbon Dioxide 25 mmol/L (22-30); Chloride 97 mmol/L (98-107); Estimated CRCL calculation 19 ml/min; Estimated Glomerular Filt Rate 20; Glucose 76 mg/dL (65-110); Phosphorus 3.9 mg/dL (2.5-4.5); Potassium 3.9 mmol/L (3.4-5.0); Sodium 133 mmol/L (137-145)
[2022-07-10] MEDS: ATORVASTATIN 40 MG TABLET PO (08:58)
[2022-07-10] MEDS: APIXABAN 2.5 MG TABLET PO ×2 (08:58→20:26)
[2022-07-10] MEDS: METOPROLOL SUCCINATE EXT REL 25 MG TABCR PO (08:58)
[2022-07-10] MEDS: calcitrioL 0.25 MCG CAPSULE PO (08:59)
--- NOTE | 2022-07-10 12:33 | PM.PNNEP ---
Progress Note: A&P Assessment and Plan (1) End stage renal disease: Code(s): N18.6 - End stage renal disease Status: Chronic Assessment and Plan: plan next HD on Friday due to holiday schedule follow electrolytes, volume status, and clearance (2) Hyperkalemia: Code(s): E87.5 - Hyperkalemia Status: Acute Assessment and Plan: resolved treated with medical management and dialysis due to dietary indiscretion(?) follow trend of K+ (3) Atrial fibrillation with rapid ventricular response: Code(s): I48.91 - Unspecified atrial fibrillation Status: Acute Assessment and Plan: noted on admission with RVR presumed etiology of weakness rate control strategy medication options (i.e. increasing metoprolol) may be limited by his hypotension on anticoagulation (on Elliquis) Cardiology consult (4) Hypotension: Code(s): I95.9 - Hypotension, unspecified Status: Acute Assessment and Plan: somewhat of a new issue midodrine dosage has recently been increased follow trend of hemodynamics (5) Diabetes: Code(s): E11.9 - Type 2 diabetes mellitus without complications Status: Acute Assessment and Plan: well controlled follow glucose readings on AM labs Will continue to follow. Subjective Date/time seen: 07/10/22 12:33 Tolerated hemodialysis treatment yesterday without any issues or problems; no apparent distress noted at this time; overall, he states he feels better in comparison to admission; heart still a bit elevated in comparison to yesterday; no other events overnight or earlier this AM. Exam Narrative: General: elderly male in NAD Heart: tachycardic; normal S1 and S2; no rub Lungs: clear to auscultation Abdomen: soft, nontender, nondistended, positive bowel sounds Extremities: no cyanosis or clubbing; no edema Skin: warm and dry Objective Data Vital Signs Vital Signs: Vital Signs Temp Pulse Resp BP Pulse Ox O2 Del Method 07/10/22 11:57 99/70 L 07/10/22 11:57 91/70 L 07/10/22 11:55 99/70 L 07/10/22 11:55 91/70 L 07/10/22 11:56 97.4 F L 111 H 18 120/78 96 07/10/22 11:55 97.4 F L 111 H 18 120/78 96 07/10/22 10:00 112 H 11/23/22 08:00 118 H 07/10/22 08:00 Room Air 07/10/22 08:58 107 H 07/10/22 08:00 97.1 F L 117 H 16 124/82 95 07/10/22 04:00 97.8 F 94 16 90/64 L 94 07/10/22 05:44 100 07/10/22 04:00 97 16 95 Room Air 07/10/22 04:00 97 07/10/22 02:00 106 H 07/10/22 00:00 107 H 16 91 Room Air 07/10/22 00:00 109 H 07/09/22 23:24 97.7 F 112 H 16 90/60 L 91 07/09/22 22:00 100 07/09/22 20:00 103 H 18 96 Room Air 07/09/22 20:00 103 H 07/09/22 20:00 97.5 F L 76 18 90/67 L 96 07/09/22 18:02 96.7 F L 111 H 20 92/72 L 99 07/09/22 18:13 Room Air 07/09/22 17:56 98.1 F 75 18 96/74 L 07/09/22 17:45 101 H 112/62 07/09/22 17:35 117 H 90/70 L 07/09/22 17:20 112 H 118/91 H 07/09/22 17:05 102 H 96/72 L 07/09/22 16:50 106 H 108/61 07/09/22 16:35 109 H 94/74 L 07/09/22 16:20 109 H 103/66 07/09/22 16:05 108 H 101/77 07/09/22 15:50 77 122/76 07/09/22 15:35 96 124/69 07/09/22 15:20 114 H 100/68 07/09/22 15:05 94 95/70 L 07/09/22 14:50 97 92/76 L 07/09/22 14:35 92 86/65 L 07/09/22 14:20 78 97/76 L 07/09/22 14:10 103 H 87/62 L 07/09/22 13:51 98.2 F 94 18 99/75 L 07/09/22 13:35 107 H 20 105/84 98 11/22/22 13:01 112 H 25 H 111/70 07/09/22 12:54 124 H 20 97/78 L 98 Intake/Output Intake/Output: Intake & Output 07/07/22 07/08/22 07/09/22 07/10/22 23:59 23:59 23:59 23:59 Intake Total 220 240 Output Total 800 Balance -580 240 Meds/Results Medications: Active Medicati
--- NOTE | 2022-07-10 16:28 | PM.IMPN ---
Progress Note: A&P Assessment and Plan (1) Atrial fibrillation with rapid ventricular response: Code(s): I48.91 - Unspecified atrial fibrillation Status: Acute (2) End-stage renal disease on hemodialysis: Code(s): N18.6 - End stage renal disease; Z99.2 - Dependence on renal dialysis Status: Acute (3) Hyperkalemia: Code(s): E87.5 - Hyperkalemia Status: Acute (4) Elevated liver enzymes: Code(s): R74.8 - Abnormal levels of other serum enzymes Status: Acute (5) Lactic acidosis: Code(s): E87.20 - Acidosis, unspecified Status: Acute Plan The patient sent from HD due to HoTN and tachycardia. Found to be in AFib. He had improvement after IV Lopressor 5mg x 1. BP still soft but tolerating metoprolol succinate 25 milligrams daily. He does take furosemide 80mg daily at home but this is on hold. Potassium level better after HD; metabolic acidosis also resolved. Continue to use HD to control potassium level. Continue renal diet. Nephrology consulted and appreciate thier input. Continue HD per their recommendations. Cardiology consulted as well. Patient weak but improved. Have patient out of bed and walking. Start PT/OT. May need midodrine if his BP remains soft. WBC normal now and he has not received abx so probably more of a stress response. Plt count dropped to 129K but not uncommon for this patient. Lactic acid level high related to poor clearance and tissue hypoperfusion. Repeat level better. LFTs noted as well. Suspect also related to hypoperfusion and/or congestion. Noted before. Will follow. Subjective Date/time seen: 07/10/22 16:28 Interval history: 76yo male with ESRD and AFib here for low BP and elevated HR. Patient had HD yesterday and did well with this. He did PD for about 1 year but switched to HD a few weeks ago. No CP. No SOB. Able to stand but hasn't walked yet. He denies feeling LH with standing. He feels 'great' today. he does not feel it when he is in AFib. Exam Narrative: AF 97.1 103/68 106 16 98% ra Gen - NARD Chest - CTA bilaterally, nml RR. Right upper chest tunneled catheter. CV - irregularly irregular. Tele showing AFib with RVR at times Abd - Soft, NT/ND, Positive BS Ext - No pedal edema Psych - Nml mood and affect Skin - Warm and dry Objective Data Vital Signs Vital Signs: Vital Signs - 24 hr 07/09/22 16:35 07/09/22 16:50 07/09/22 17:05 Temperature Pulse Rate 109 H 106 H 102 H Respiratory Rate Blood Pressure 94/74 L 108/61 96/72 L Pulse Oximetry Oxygen Delivery 07/09/22 17:20 07/09/22 17:35 07/09/22 17:45 Temperature Pulse Rate 112 H 117 H 101 H Respiratory Rate Blood Pressure 118/91 H 90/70 L 112/62 Pulse Oximetry Oxygen Delivery 07/09/22 17:56 07/09/22 18:13 07/09/22 18:02 Temperature 98.1 F 96.7 F L Pulse Rate 75 111 H Respiratory Rate 18 20 Blood Pressure 96/74 L 92/72 L Pulse Oximetry 99 Oxygen Delivery Room Air 07/09/22 20:00 07/09/22 20:00 07/09/22 20:00 Temperature 97.5 F L Pulse Rate 76 103 H 103 H Respiratory Rate 18 18 Blood Pressure 90/67 L Pulse Oximetry 96 96 Oxygen Delivery Room Air 07/09/22 22:00 07/09/22 23:24 07/10/22 00:00 Temperature 97.7 F Pulse Rate 100 112 H 109 H Respiratory Rate 16 Blood Pressure 90/60 L Pulse Oximetry 91 Oxygen Delivery 07/10/22 00:00 07/10/22 02:00 07/10/22 04:00 Temperature Pulse Rate 107 H 106 H 97 Respiratory Rate 16 Blood Pressure Pulse Oximetry 91 Oxygen Delivery Room Air 07/10/22 04:00 07/10/22 05:44 07/10/22 04:00 Temperature 97.8 F Pulse Rate 97 100 94 Respiratory Rate 16 16 Blood Pressure 90/64 L Pulse Oximetry 95 94 Oxygen Delivery Room Air 07/10/22 08:00 07/10/22 08:58 07/10/22 08:00 Temperature 97.1 F L Pulse Rate 117 H 107 H Respiratory Rate 16 Blood Pressure 124/82 Pulse Oximetry 95 Oxygen Delivery Room Air 07/10/22 08:00
--- NOTE | 2022-07-10 17:14 | PM.CNCAR ---
Assessment and Plan Assessment and plan (1) Atrial fibrillation with rapid ventricular response: Code(s): I48.91 - Unspecified atrial fibrillation Status: Acute Assessment and Plan: previously paroxysmal, now persistent AFib, initial with RVR Metoprolol dose was reduced recently due to hypotension. Some of patient's symptoms may be due to his atrial fibrillation Discussed another try of cardioversion, with amiodarone on board to prevent recurrence. Patient is interested in pursuing this to see if it helps with his fatigue. He may have missed an Eliquis dose now and then so we will plan a HALEY guided cardioversion on Friday. Reviewed the benefits and risks , especially long-term risks, of amiodarone therapy. reviewed periodic monitoring. Start amiodarone 40 mg b.i.d.. Eventually wean off metoprolol. (2) Fatigue: Code(s): R53.83 - Other fatigue Status: Acute Assessment and Plan: Fatigue, particularly exertional fatigue. Partly due to atrial fibrillation partly due to hypotension/ autonomic dysfunction partly due to end-stage renal disease (3) Hypotension: Code(s): I95.9 - Hypotension, unspecified Status: Acute Assessment and Plan: Llow blood pressure, perhaps due to atrial fibrillation, but also perhaps due to some autonomic dysfunction. Has been taking midodrine (4) CAD (coronary artery disease): Qualifiers: Coronary Disease-Associated Artery/Lesion type: [place] artery [place] vs. transplanted heart: barrow heart Associated angina: without angina Qualified Code(s): I25.10 - Atherosclerotic heart disease of b[place] coronary artery without angina pectoris Code(s): I25.10 - Atherosclerotic heart disease of [place] coronary artery without angina pectoris Status: Acute Assessment and Plan: History of CAD and stent, stable. (5) End stage renal disease: Code(s): N18.6 - End stage renal disease Status: Chronic Assessment and Plan: Recently changed from peritoneal dialysis to hemodialysis because of ongoing volume overload. History of Present Illness History of Present Illness Consult date/time: 07/10/22 17:14 Reason For Visit: Hyperkalemia/Afib with RVR Narrative: Elias Aguirre is a 76 y.o. male whom I was asked to see at the request of FRANCISCA Villarreal for my advise and opinion regarding his a fib RVR, in consultation. Mr. Aguirre is followed by Dr. Green for his CAD and history of coronary stent, diastolic CHF, and atrial fibrillation.? He has history of moderate MR and mild aortic stenosis.? The patient has seen Dr. Alexsandra bacon, x ray tech, and been cardioverted twice (October and February 2020). He may have taken amiodarone in the past. He was was maintaining sinus rhythm when he last saw Dr. Green in December 2021. However when he was hospitalized in March for volume overload he was back in AFib with a controlled heart rate 80-100 BPM, taking metoprolol succinate 25 mg daily and Eliquis. He has end-stage renal disease And was changed from peritoneal dialysis to hemodialysis a couple months ago. He has been having trouble with low blood pressure and his metoprolol was halved and he has been started on midodrine. Mr. Aguirre had his midodrine increased recently. The patient has been feeling very weak, with poor exertional tolerance which he thinks may be due to his AFib. He presented to for dialysis on the morning of 07/09/2022 with weakness, SBP 90/100, and was found to be in AFib RVR, then sent to the emergency room. Initially with heart rates in the 120s to 130s but after metoprolol 5 mg IV push x1 it has been running 80s to 100s. Review of Systems Constitutional: Constitutional: Reports fatigue, Denies fever(s), Reports lethargy and Reports weakness Eyes: Eyes: Reports no additional eye complaints ENT: Denies epistaxis Cardiovascular: Cardiovascular: Bettie
[2022-07-11] VITALS (21 sets, daily range): BP systolic 80–107; BP diastolic 58–74; PULSE 56–119; RESP 16–20; TEMP 35.8–36.4; O2SAT 97–100
[2022-07-11 04:50] LABS: Lactic Acid Reflex 2.3 mmol/L (0.7-2.0)
[2022-07-11 04:56] LABS: Alanine Aminotransferase 85 U/L (6-50); Albumin Level 3.4 g/dL (3.5-5.1); Alkaline Phosphatase 69 U/L (38-126); Anion Gap 12 mmol/L (8-16); Aspartate Amino Transferase 69 U/L (17-59); Bilirubin,Total 1.2 mg/dL (0.2-1.3); Blood Urea Nitrogen 23 mg/dL (9-20); Calcium 8.6 mg/dL (8.4-10.2); Carbon Dioxide 28 mmol/L (22-30); Chloride 98 mmol/L (98-107); Creatine Kinase 136 U/L (55-170); Estimated CRCL calculation 14 ml/min; Estimated Glomerular Filt Rate 14; Glucose 99 mg/dL (65-110); Potassium 3.6 mmol/L (3.4-5.0); Sodium 138 mmol/L (137-145)
[2022-07-11 07:37] LABS: Reflex Lactic Acid Yes or No Add Lactic
[2022-07-11 08:12] LABS: Lactic Acid 1.6 mmol/L (0.7-2.0)
[2022-07-11] MEDS: calcitrioL 0.25 MCG CAPSULE PO (09:02)
[2022-07-11] MEDS: APIXABAN 2.5 MG TABLET PO ×2 (09:02→20:17)
[2022-07-11] MEDS: ATORVASTATIN 40 MG TABLET PO (09:02)
[2022-07-11] MEDS: AMIODARONE HCL 200 MG TABLET 400 MG PO ×2 (10:19→17:05)
--- NOTE | 2022-07-11 10:40 | PM.PNCARD ---
Progress Note: A&P Assessment and Plan (1) Atrial fibrillation with rapid ventricular response: Code(s): I48.91 - Unspecified atrial fibrillation Status: Acute Assessment and Plan: previously paroxysmal, now persistent AFib, initial with RVR Metoprolol dose was reduced recently due to hypotension. Some of patient's symptoms may be due to his atrial fibrillation Discussed another try of cardioversion, with amiodarone on board to prevent recurrence. Patient is interested in pursuing this to see if it helps with his fatigue. NPO after midnight Continue Eliquis, amiodarone. HALEY cardioversion tomorrow. Basic metabolic panel and magnesium level in the morning. Will discontinue metoprolol at this point. (2) Fatigue: Code(s): R53.83 - Other fatigue Status: Acute Assessment and Plan: Fatigue, particularly exertional fatigue. Partly due to atrial fibrillation partly due to hypotension/ autonomic dysfunction partly due to end-stage renal disease (3) Hypotension: Code(s): I95.9 - Hypotension, unspecified Status: Acute Assessment and Plan: Llow blood pressure, perhaps due to atrial fibrillation, but also perhaps due to some autonomic dysfunction. Has been taking midodrine (4) CAD (coronary artery disease): Qualifiers: Coronary Disease-Associated Artery/Lesion type: [place] artery [place] vs. transplanted heart: [place] heart Associated angina: without angina Qualified Code(s): I25.10 - Atherosclerotic heart disease of [place] coronary artery without angina pectoris Code(s): I25.10 - Atherosclerotic heart disease of [place] coronary artery without angina pectoris Status: Acute Assessment and Plan: History of CAD and stent, stable. (5) End stage renal disease: Code(s): N18.6 - End stage renal disease Status: Chronic Assessment and Plan: Recently changed from peritoneal dialysis to hemodialysis because of ongoing volume overload. Subjective Date/time seen: 07/11/22 10:40 Interval history: 76yo male with ESRD and AFib here for low BP and elevated HR. Date of service 07/11/2022: Feels okay. Feels little bit better and has no chest pain or shortness of breath. Review of Systems Constitutional: Constitutional: Reports fatigue, Denies fever(s), Reports lethargy and Reports weakness Eyes: Eyes: Reports no additional eye complaints ENT: Denies epistaxis Cardiovascular: Cardiovascular: Denies chest pain, Denies pedal edema, Denies lightheadedness, Denies palpitations, Denies dyspnea and Reports dyspnea on exertion ( mild HOPPER with activity) Respiratory: Respiratory: Denies chest congestion, Denies dyspnea and Reports dyspnea on exertion ( mild HOPPER with activity) Gastrointestinal: Gastrointestinal: Denies abdominal pain and Denies hematochezia Musculoskeletal: Musculoskeletal: Reports no additional musculoskeletal complaints Integumentary/Breasts: Skin/Breast: Reports system reviewed and no additional complaints, except as docu Neurologic: Reports system reviewed and no additional complaints, except as documented, Denies behavioral changes, Denies confusion and Reports weakness Psychiatric: Psychiatric: Denies behavioral changes and Denies confusion Endocrine: Endocrine: Reports fatigue and Denies palpitations Exam Const: General: cooperative, healthy appearing and comfortable; No confusion Orientation/consciousness: oriented to person, patient oriented x3 and No confusion HENMT: Mouth: Yes moist mucous membranes Eyes: Sclera: sclerae normal Neck: Neck: supple and no JVD Carotids: no bruits Resp: Effort & Inspection: normal respiratory effort Auscultation: clear to auscultation bilaterally Cardio: Rate: regular rate Rhythm: abnormal rhythm irregularly irregular Heart sounds: no murmurs GI: Inspection: normal to inspection Skin: General skin exam: normal color and no r
--- NOTE | 2022-07-11 12:30 | PM.PNNEP ---
Progress Note: A&P Assessment and Plan (1) End stage renal disease: Code(s): N18.6 - End stage renal disease Status: Chronic Assessment and Plan: plan next HD on Friday due to holiday schedule follow electrolytes, volume status, and clearance (2) Hyperkalemia: Code(s): E87.5 - Hyperkalemia Status: Acute Assessment and Plan: resolved treated with medical management and dialysis due to dietary indiscretion(?) follow trend of K+ (3) Atrial fibrillation with rapid ventricular response: Code(s): I48.91 - Unspecified atrial fibrillation Status: Chronic Assessment and Plan: noted on admission with RVR presumed etiology of weakness rate control strategy medication options (i.e. increasing metoprolol) may be limited by his hypotension on anticoagulation (on Elliquis) Cardiology consult (4) Hypotension: Code(s): I95.9 - Hypotension, unspecified Status: Acute Assessment and Plan: somewhat of a new issue midodrine dosage had recently been increased - will restart here doubt infection/sepsis - blood culture negative to date follow trend of hemodynamics (5) Diabetes: Code(s): E11.9 - Type 2 diabetes mellitus without complications Status: Chronic Assessment and Plan: well controlled follow glucose readings on AM labs Will continue to follow. Subjective Date/time seen: 07/11/22 12:30 Appears to be doing reasonably well at the time of my visit; seen by Cardiology and noted plan for possible HALEY cardioversion tomorrow; no apparent distress noted currently; no issues/events overnight or earlier this morning; BP still running soft but his home midodrine was not restarted on admission. Exam Narrative: General: elderly male in NAD Heart: IRRR, normal S1 and S2; no rub Lungs: clear to auscultation Abdomen: soft, nontender, nondistended, positive bowel sounds Extremities: no cyanosis or clubbing; no edema Skin: warm and intact Objective Data Vital Signs Vital Signs: Vital Signs Temp Pulse Resp BP Pulse Ox O2 Del Method 07/11/22 12:00 97.5 F L 73 16 80/60 L 100 07/11/22 10:19 94 07/11/22 10:15 105 H 07/11/22 09:58 92/63 L 07/11/22 09:57 84/61 L 07/11/22 08:00 106 H 80/58 L 97 07/11/22 08:33 Room Air 07/11/22 08:00 96.4 F L 56 L 16 90/64 L 99 07/11/22 07:48 Room Air 07/11/22 05:09 103 H 07/11/22 03:05 100 18 100 Room Air 07/11/22 03:05 100 07/11/22 02:00 98 07/11/22 03:00 97.2 F L 89 18 92/72 L 100 07/11/22 00:00 108 H 16 99 Room Air 07/11/22 00:00 108 H 07/11/22 00:00 97.6 F 102 H 16 87/68 L 99 07/10/22 21:39 98 07/10/22 20:00 90 18 100 Room Air 07/10/22 20:00 90 07/10/22 20:45 99/67 L 07/10/22 20:45 82/68 L 07/10/22 20:00 97.7 F 89 18 92/63 L 100 07/10/22 20:00 92/63 L 07/10/22 18:00 103 H 07/10/22 16:00 98 07/10/22 16:00 Room Air 07/10/22 15:44 97.1 F L 106 H 16 103/68 98 Intake/Output Intake/Output: Intake & Output 07/08/22 07/09/22 07/10/22 07/11/22 23:59 23:59 23:59 23:59 Intake Total 220 920 480 Output Total 800 0 0 Balance -580 920 480 Meds/Results Medications: Active Medications Generic Name Dose Route Start Last Admin Trade Name Freq PRN Reason Stop Dose Admin Amiodarone HCl 400 mg 07/11/22 09:00 07/11/22 10:19 Amiodarone Hcl 200 Mg Tablet PO 400 mg BID YING Administration Apixaban 2.5 mg 07/09/22 21:00 07/11/22 09:02 Apixaban 2.5 Mg Tablet PO 2.5 mg Q12HR YING Administration Atorvastatin Calcium 40 mg 07/10/22 09:00 07/11/22 09:02 Atorvastatin 40 Mg Tablet PO 40 mg DAILY YING Administration Calcitriol 0.25 mcg 07/10/22 09:00 07/11/22 09:02 Calcitriol 0.25 Mcg Capsule PO 0.25 mcg DAILY [facility] Administrati
[2022-07-11] MEDS: MIDODRINE HCL 10 MG TABLET PO ×2 (15:00→17:05)
--- NOTE | 2022-07-11 15:15 | PM.IMPN ---
Progress Note: A&P Assessment and Plan (1) Atrial fibrillation with rapid ventricular response: Code(s): I48.91 - Unspecified atrial fibrillation Status: Chronic Assessment and Plan: The patient sent to the ED from HD due to HoTN and tachycardia. Found to be in AFib. Previously paroxysmal but now persistent AFib with RVR. Metoprolol dose was reduced recently due to hypotension. He had improvement after IV Lopressor 5mg x 1. Seen by Cardiology and Amio started. He remains on Eliquis. Possible cardioversion in am if he does not convert. Appreciate Cardiology input. (2) Hypotension: Code(s): I95.9 - Hypotension, unspecified Status: Acute Assessment and Plan: Low blood pressure, perhaps due to atrial fibrillation, but also perhaps due to some autonomic dysfunction. Consider sepsis but no evidence of infection. WBC normal now and he has not received abx so probably more of a stress response. BP still soft and not tolerating metoprolol. He does take furosemide 80mg daily at home but this is on hold. Midodrine started. (3) Lactic acidosis: Code(s): E87.20 - Acidosis, unspecified Status: Acute Assessment and Plan: Lactic acid 8.4 on admission felt related to poor clearance and tissue hypoperfusion. Repeat lactic level has normalized. (4) Hyperkalemia: Code(s): E87.5 - Hyperkalemia Status: Acute Assessment and Plan: Potassium 6.3 on admission. Potassium level better after HD; metabolic acidosis also resolved. Continue to use HD to control potassium level. Follow. (5) Elevated liver enzymes: Code(s): R74.8 - Abnormal levels of other serum enzymes Status: Acute Assessment and Plan: LFTs noted to be mildly elevated. Suspect also related to hypoperfusion and/or congestion. Noted before. Will follow. (6) End-stage renal disease on hemodialysis: Code(s): N18.6 - End stage renal disease; Z99.2 - Dependence on renal dialysis Status: Acute Assessment and Plan: Stable. Continue renal diet. Nephrology consulted and appreciate their input. Continue HD per their recommendations. Plan Weakness - Patient weak so PT/OT started. Better today. Continue PT/OT. Thrombocytopenia - Plt count dropped to 129K but not uncommon for this patient. Subjective Date/time seen: 07/11/22 15:15 Interval history: 76yo male with ESRD and AFib here for low BP and elevated HR. BP soft at times. He denies feeling lightheaded when he stands or walks. No chest pain. He has been walking with therpay in the halls. Exam Narrative: AF 97.5 88/63 96 16 100% ra Gen - NARD Chest - L>R bibasilar inspiratory crackles, nml RR. right upper chest tunnelled cath CV - irregularly irregular. Tele showing AFib with RVR at times and one episode of NSVT Abd - Soft, NT/ND, Positive BS. PD cath site clean and dry Ext - No pedal edema Psych - Nml mood and affect. in good spirits Skin - Warm and dry Objective Data Vital Signs Vital Signs: Vital Signs - 24 hr 07/10/22 15:44 07/10/22 16:00 07/10/22 16:00 Temperature 97.1 F L Pulse Rate 106 H 98 Respiratory Rate 16 Blood Pressure 103/68 Pulse Oximetry 98 Oxygen Delivery Room Air 07/10/22 18:00 07/10/22 20:00 07/10/22 20:00 Temperature 97.7 F Pulse Rate 103 H 89 Respiratory Rate 18 Blood Pressure 92/63 L 92/63 L Pulse Oximetry 100 Oxygen Delivery 07/10/22 20:45 07/10/22 20:45 07/10/22 20:00 Temperature Pulse Rate 90 Respiratory Rate Blood Pressure 82/68 L 99/67 L Pulse Oximetry Oxygen Delivery 07/10/22 20:00 07/10/22 21:39 07/11/22 00:00 Temperature 97.6 F Pulse Rate 90 98 102 H Respiratory Rate 18 16 Blood Pressure 87/68 L Pulse Oximetry 100 99 Oxygen Delivery Room Air 07/11/22 00:00 07/11/22 00:00 07/11/22 03:00 Temperature 97.2 F L Pulse Rate 108 H 108 H 89 Respiratory Rate 16 18 Blood Pressur
[2022-07-12] VITALS (41 sets, daily range): BP systolic 85–107; BP diastolic 42–89; PULSE 63–139; RESP 14–30; TEMP 36.2–36.6; O2SAT 90–100
[2022-07-12] MEDS: calcitrioL 0.25 MCG CAPSULE PO (08:08)
[2022-07-12] MEDS: APIXABAN 2.5 MG TABLET PO ×2 (08:08→19:59)
[2022-07-12] MEDS: ATORVASTATIN 40 MG TABLET PO (08:08)
[2022-07-12] MEDS: AMIODARONE HCL 200 MG TABLET 400 MG PO ×2 (08:08→17:50)
[2022-07-12] MEDS: MIDODRINE HCL 10 MG TABLET PO ×3 (08:08→17:50)
[2022-07-12 08:20] LABS: Basophils Percent Auto 0.3 % (0.2-1.2); Eosinophils Absolute Auto 0.1 K/mm3 (0-0.3); Eosinophils Percent Auto 0.7 % (0-4.4); Hematocrit 35.8 % (42.0-52.0); Hemoglobin 11.7 g/dL (14.0-18.0); Immature Granulocyte Absolute 0.11 K/mm3 (0.00-0.031); Immature Granulocyte Percent A 1.1 % (0-0.5); Lymphocytes Absolute Auto 1.71 K/mm3 (0.9-3.2); Lymphocytes Percent Auto 17.3 % (18.3-44.2); Mean Corpuscular HGB Conc 32.7 g/dl (32-36); Mean Corpuscular Hemoglobin 33.2 pg (26-34); Mean Corpuscular Volume 101.7 fl (80-100); Monocytes Absolute Auto 0.8 K/mm3 (0.1-0.6); Monocytes Percent Auto 8.4 % (2.6-8.5); Neutrophils Absolute Auto 7.1 K/mm3 (1.3-6.7); Neutrophils Percent Auto 72.2 % (45.5-73.1); Platelet Count Result 147 k/mm3 (150-375); Red Blood Count 3.52 M/mm3 (4.6-6.20); Red Cell Distribution Width 17.1 % (11.5-14.5); White Blood Count 9.9 K/mm3 (4.5-10.0)
--- NOTE | 2022-07-12 08:30 | ECG_ITS ---
Measurements Intervals [place] Rate: 114 P: [place]: 0 QRS: -33 QRSD: 116 T: 131 QT: 360 QTc: 496 Interpretive Statements ATRIAL FIBRILLATION WITH RAPID VENTRICULAR RESPONSE VENTRICULAR PREMATURE COMPLEX LEFT AXIS DEVIATION INCOMPLETE LEFT BUNDLE BRANCH BLOCK LOW QRS VOLTAGE IN LIMB LEADS CONSIDER INFERIOR INFARCT, AGE INDETERMINATE ST-T WAVE ABNORMALITY IN HIGH LATERAL LEADS- CONSIDER ISCHEMIA ABNORMAL ECG COMPARED TO ECG 07/09/2022 09:05:00 LEFT-AXIS DEVIATION NOW PRESENT MYOCARDIAL INFARCT FINDING NOW PRESENT Electronically Signed On 07-12-2022 9:53:55 RESEARCH AND DEVELOPMENT MANAGER by Vikram Ochoa D.O.
[2022-07-12 08:34] LABS: Albumin Level 3.7 g/dL (3.5-5.1); Anion Gap 12 mmol/L (8-16); Blood Urea Nitrogen 34 mg/dL (9-20); Calcium 8.7 mg/dL (8.4-10.2); Carbon Dioxide 26 mmol/L (22-30); Chloride 98 mmol/L (98-107); Estimated CRCL calculation 11 ml/min; Estimated Glomerular Filt Rate 10; Glucose 118 mg/dL (65-110); Magnesium 2.1 mg/dL (1.6-2.3); Phosphorus 5.2 mg/dL (2.5-4.5); Potassium 4.7 mmol/L (3.4-5.0); Sodium 136 mmol/L (137-145)
--- NOTE | 2022-07-12 08:54 | WPDMODSED ---
Moderate Sedation Note-Pt Data Patient Data Diagnosis: Atrial fibrillation Present Complaint: Atrial fibrillation Procedure to be performed/Plan: Multiplanar transesophageal echocardiography with color-flow pulse-wave Doppler Agitated saline study Moderate sedation Electrical cardioversion Allergies Allergy/AdvReac Type Severity Reaction Status Date / Time No Known Allergies Allergy Unknown Verified 06/26/22 17:27 Home Medications Medication Instructions Recorded Confirmed Type apixaban 2.5 mg tablet (Eliquis) 2.5 mg PO Q12HR #60 tabs 11/28/20 07/09/22 Rx calcitriol 0.25 mcg capsule 0.25 mcg PO DAILY 11/12/21 07/09/22 History potassium chloride 20 mEq See Rx Instructions .Route 12/10/21 07/09/22 Rx tablet,extended release(part/cryst) .COMPLEX #90 tabs atorvastatin 40 mg tablet 40 mg PO DAILY 03/27/22 07/09/22 History furosemide 80 mg tablet 80 mg PO 1500 03/27/22 07/09/22 History metoprolol succinate 25 mg 25 mg PO DAILY 03/27/22 07/09/22 History tablet,extended release 24 hr Current Medications: Active Medications Amiodarone HCl (Amiodarone Hcl 200 Mg Tablet) 400 mg PO BID [facility] Last Admin: 07/12/22 08:08 Dose: 400 mg Apixaban (Apixaban 2.5 Mg Tablet) 2.5 mg PO Q12HR [facility] Last Admin: 07/12/22 08:08 Dose: 2.5 mg Atorvastatin Calcium (Atorvastatin 40 Mg Tablet) 40 mg PO DAILY [facility] Last Admin: 07/12/22 08:08 Dose: 40 mg Calcitriol (Calcitriol 0.25 Mcg Capsule) 0.25 mcg PO DAILY [facility] Last Admin: 07/12/22 08:08 Dose: 0.25 mcg Epoetin Chance-epbx (Epoetin Chance-Epbx 10,000 Units/Ml Vial) 10,000 units IV PUSH ONCE ONE Stop: 07/12/22 21:29 Albumin Human (Albutein) 50 mls @ 999 mls/hr IVPB Q10M PRN PRN Reason: HYPOTENSION Stop: 08/08/22 12:17 Midodrine (Midodrine Hcl 10 Mg Tablet) 10 mg PO TID [facility] Last Admin: 07/12/22 08:08 Dose: 10 mg Sedation/Anesthesia: No previous sedation/anesthesia problems (including family history). [facility] Past Medical History Medical History Anemia of chronic disease Arthritis Cataracts, bilateral Maturing Cervical spinal stenosis Coronary artery disease History of non STEMI in May 2018 status post drug-eluting stent to the LAD. 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 machine long goods helper anticoagulation Diabetic peripheral neuropathy Diverticular hemorrhage Diverticulitis End-stage renal disease on hemodialysis Erythropoietin deficiency anemia Heart failure with preserved ejection fraction Echocardiogram in June 2019 showed a severely enlarged left atrial chamber, normal left ventricular size with moderate concentric left ventricular hypertrophy, left ventricular function is at the lower end of normal with an estimated ejection fraction 50-55% (although calculated at 63%), no wall motion abnormalities, moderate aortic valve calcification with no significant stenosis, moderate to moderately severe eccentric mitral valve regurgitation, mild tricuspid valve regurgitation, estimated pulmonary arterial systolic pressure of 32 mmHg, dilated inferior vena cava with <50% collapse upon inspiration consistent with elevated right atrial pressure, 10 mmHg., transesophageal echocardiogram September 2019 demonstrated moderate mitral valve regurgitation with stable EF Hypercholesteremia Hypertension Hypothyroidism Kidney stones (~2008) Mitral regurgitation Paroxysmal atrial fibrillation Status post cardioversion in October 2019 and February 2020. 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 Hemoglobin A1c 5.7 11/13/2020 Surgical History Surgical History History of appendectomy 1975 History of cardiac catheterization (~05/2018) Totally occlude LAD status post drug-eluting stent. Additional findings include high-grade stenosis of non dominant left circum
--- NOTE | 2022-07-12 09:30 | ECG_ITS ---
Measurements Intervals [place] Rate: 75 P: [place]: 0 QRS: -32 QRSD: 110 T: 130 QT: 420 QTc: 470 Interpretive Statements SINUS OR ECTOPIC ATRIAL RHYTHM LEFT AXIS DEVIATION INCOMPLETE LEFT BUNDLE BRANCH BLOCK BORDERLINE R WAVE PROGRESSION, ANTERIOR LEADS LOW QRS VOLTAGE IN LIMB LEADS ST-T WAVE ABNORMALITY IN HIGH LATERAL LEADS- CONSIDER ISCHEMIA BASELINE ARTIFACT- AVR, AVL ABNORMAL ECG COMPARED TO ECG 07/12/2022 08:24:49 SUPRAVENTRICULAR RHYTHM NOW PRESENT Electronically Signed On 07-12-2022 10:00:16 PLATE FURNACE OPERATOR by Vikram Ochoa D.O.
--- NOTE | 2022-07-12 10:12 | SUR.PHASEII ---
report given to denys pierre rn
--- NOTE | 2022-07-12 10:17 | SUR.PHASEII ---
dr pziano at bedside discussing results with patient
--- NOTE | 2022-07-12 10:39 | P.PCNTEECA_ITS ---
HALEY with Cardioversion Date of procedure: 07/12/22 Procedure Type: 1. Multiplanar transesophageal echocardiography with color-flow pulse-wave Doppler 2. Moderate sedation 3. Electrical cardioversion Diagnosis: Atrial fibrillation Indications: Atrial fibrillation Description of Procedure: After discussing the risks, benefits and alternatives of the procedure patient agreeable via verbal and written informed consent. Risks discussed included esophageal rupture perforation, , need for emergent surgery, bleeding, pain, infection, shocking to more problematic heart rhythm, skin irritation or burn. After establishing continues cardiac monitor technician, pulse oxygenation in serial blood pressure assessments, time-out was taken the procedure was started. Procedure start time 8:56 a.m. Procedure stop time 9:29 a.m. Complications: None Blood loss: None Medications/sedation: 3 mg of Versed and 50 mcg of fentanyl given in divided dosages. 2 mg of Narcan were also given. See below Patient was monitored meds administered by Reema Carpenter Near the end of the procedure, the patient was becoming a bit apneic. It was decided to proceed with Narcan for reversal. This did help. There is no complication, need for intubation or arrhythmia. Sedation: As above Findings: HALEY: Mild left ventricular enlargement with ejection fraction around 35-40%. Normal right ventricular size and function. Moderate left atrial enlargement and mild right atrial enlargement. Atrial septum is grossly intact without color flow evidence of shunting. Aortic root measures 3.3 cm. Left atrial appendage is normal with velocities by pulse wave up to 50 centimeters/second. No mass or thrombus was seen left atrial appendage. The mitral valve is abnormal. There is failure of coaptation between the anterior and posterior leaflets. It does appear to be a small hyperdynamic structure, can exclude endocarditis associated anterior leaflet tip. There is severe mitral regurgitation. Tricuspid valve is grossly normal with moderate tricuspid regurgitation. Pulmonic valve is normal with mild pulmonic insufficiency. The aortic valve is calcified and moderately stenotic with planimetry valve area of 1.3 centimeter squared. No significant aortic insufficiency. No significant pericardial effusion. Electrical cardioversion: Successful scientology of sinus rhythm using 150 joules of biphasic synchronized energy which did restore sinus rhythm from atrial fibrillation Conclusion: 1. Successful scientology of sinus rhythm using 150 joules of biphasic energy 2. LV enlargement with moderate LV dysfunction 3. Severe mitral regurgitation as detailed above 4. Moderate tricuspid regurgitation 5. mild pulmonic regurgitation 6. Moderate aortic stenosis 7. Moderate sedation Plan: In the short term continue anticoagulation. In the long-term, his mitral regurgitation is a significant issue. He has severe mitral regurgitation and possible vegetation associated with the anterior leaflet of the mitral valve. This is small but there is a hypermobile structure at the tip. There is lack of closure of the mitral valve resulting in severe mitral regurgitation. Will order blood cultures x2. He likely needs removal of the dialysis catheter and consideration of anti biotics. Mitral valve will need to be replaced or repaired.
--- NOTE | 2022-07-12 11:53 | PM.PNNEP ---
Progress Note: A&P Assessment and Plan (1) End stage renal disease: Code(s): N18.6 - End stage renal disease Status: Chronic Assessment and Plan: HD today and continue M/W/ schedule follow electrolytes, volume status, and clearance (2) Severe mitral regurgitation: Code(s): I34.0 - Nonrheumatic mitral (valve) insufficiency Status: Acute Assessment and Plan: as noted by HALEY this AM this is further complicated by possible vegetation of the valve blood culture x 2 done but initial blood cultures on admission negative empiric antibiotics(?) (3) Hyperkalemia: Code(s): E87.5 - Hyperkalemia Status: Resolved Assessment and Plan: resolved treated with medical management and dialysis due to dietary indiscretion(?) follow trend of K+ (4) Atrial fibrillation with rapid ventricular response: Code(s): I48.91 - Unspecified atrial fibrillation Status: Chronic Assessment and Plan: noted on admission with RVR presumed etiology of weakness s/p HALEY with cardioversion today (07/12/22) on anticoagulation (on Eliquis) Cardiology following (5) Hypotension: Code(s): I95.9 - Hypotension, unspecified Status: Acute Assessment and Plan: somewhat of a new issue midodrine dosage had recently been increased follow trend of hemodynamics (6) Diabetes: Code(s): E11.9 - Type 2 diabetes mellitus without complications Status: Chronic Assessment and Plan: well controlled follow glucose readings on AM labs Will continue to follow. Subjective Date/time seen: 07/12/22 11:53 Tolerating hemodialysis treatment at the time of my visit (seen on HD at 11:40AM); s/p HALEY with cardioversion with successful protestant of normal sinus rhythm; further findings of HALEY noted as well; no other apparent issues or concerns voiced; overall, states he feels reasonably well. Exam Narrative: General: elderly male in NAD Heart: IRRR, normal S1 and S2; no rub Lungs: clear to auscultation Abdomen: soft, nontender, nondistended, positive bowel sounds Extremities: no cyanosis or clubbing; no edema Skin: no rash or nodules Objective Data Vital Signs Vital Signs: Vital Signs Temp Pulse Resp BP Pulse Ox O2 Del Method O2 Flow Rate 07/12/22 10:29 71 18 90/74 L 97 Room Air 07/12/22 10:15 76 20 90/78 L 95 Room Air 07/12/22 09:31 78 22 H 98/87 L 100 Nasal Cannula 6 07/12/22 09:26 110 H 18 100/83 95 Nasal Cannula 3 07/12/22 10:05 98 Room Air 07/12/22 10:00 75 16 97/81 L 98 Nasal Cannula 2 07/12/22 09:45 72 14 93/78 L 100 Nasal Cannula 4 07/12/22 09:35 73 19 95/78 L 100 Nasal Cannula 4 07/12/22 09:36 77 30 H 103/87 97 Nasal Cannula 4 07/12/22 09:21 107 H 14 98/82 L 100 Nasal Cannula 3 07/12/22 09:16 109 H 18 103/86 100 Nasal Cannula 3 07/12/22 09:00 102 H 18 96/80 L 100 Nasal Cannula 3 07/12/22 08:30 104 H 14 105/89 96 Room Air 07/12/22 08:11 139 H 102/76 07/12/22 08:11 110 H 94/74 L 07/12/22 08:10 97.8 F 96 20 99/76 L 94 07/12/22 08:10 97.8 F 96 20 99/76 L 94 07/12/22 08:08 108 H 07/12/22 06:00 98 07/12/22 04:00 97.9 F 107 H 20 91/53 L 98 07/12/22 04:00 95 20 97 Room Air 07/12/22 04:00 96 07/12/22 01:45 97 07/12/22 00:00 108 H 20 97 Room Air 07/12/22 00:00 108 H 07/11/22 22:00 104 H 07/11/22 23:10 97.3 F L 73 20 93/60 L 97 07/11/22 20:00 105 H 18 98 Room Air 07/11/22 20:00 105 H 07/11/22 20:00 97.1 F L 100 18 87/67 L 98 07/11/22 20:26 107/74 07/11/22 20:26 98/72 L 07/11/22 20:00 87/67 L 07/11/22 18:00 88 07/11/22 16:00 97.5 F L 70 16 90/60 L 100 07/11/22 16:00 Room Air 07/11/22 17:05 92 07/11/22 16:00 100
--- NOTE | 2022-07-12 11:53 | P.PNNP_ITS ---
Progress Note: A&P Assessment and Plan (1) End stage renal disease: Code(s): N18.6 - End stage renal disease Status: Chronic Assessment and Plan: * HD today and continue // schedule * follow electrolytes, volume status, and clearance (2) Severe mitral regurgitation: Code(s): I34.0 - Nonrheumatic mitral (valve) insufficiency Status: Acute Assessment and Plan: * as noted by HALEY this AM * this is further complicated by possible vegetation of the valve * blood culture x 2 done but initial blood cultures on admission negative * empiric antibiotics(?) (3) Hyperkalemia: Code(s): E87.5 - Hyperkalemia Status: Resolved Assessment and Plan: * resolved * treated with medical management and dialysis * due to dietary indiscretion(?) * follow trend of K+ (4) Atrial fibrillation with rapid ventricular response: Code(s): I48.91 - Unspecified atrial fibrillation Status: Chronic Assessment and Plan: * noted on admission with RVR * presumed etiology of weakness * s/p HALEY with cardioversion today (07/12/22) * on anticoagulation (on Eliquis) * Cardiology following (5) Hypotension: Code(s): I95.9 - Hypotension, unspecified Status: Acute Assessment and Plan: * somewhat of a new issue * midodrine dosage had recently been increased * follow trend of hemodynamics (6) Diabetes: Code(s): E11.9 - Type 2 diabetes mellitus without complications Status: Chronic Assessment and Plan: * well controlled * follow glucose readings on AM labs Will continue to follow. Subjective Date/time seen: 07/12/22 11:53 Tolerating hemodialysis treatment at the time of my visit (seen on HD at 11:40AM); s/p HALEY with cardioversion with successful protestant of normal sinus rhythm; further findings of HALEY noted as well; no other apparent issues or concerns voiced; overall, states he feels reasonably well. Exam Narrative: General: elderly male in NAD Heart: IRRR, normal S1 and S2; no rub Lungs: clear to auscultation Abdomen: soft, nontender, nondistended, positive bowel sounds Extremities: no cyanosis or clubbing; no edema Skin: no rash or nodules Objective Data Vital Signs Vital Signs: Vital Signs Temp Pulse Resp BP Pulse Ox O2 Del Method O2 Flow Rate 07/12/22 10:29 71 18 90/74 L 97 Room Air 07/12/22 10:15 76 20 90/78 L 95 Room Air 07/12/22 09:31 78 22 H 98/87 L 100 Nasal Cannula 6 07/12/22 09:26 110 H 18 100/83 95 Nasal Cannula 3 07/12/22 10:05 98 Room Air 07/12/22 10:00 75 16 97/81 L 98 Nasal Cannula 2 07/12/22 09:45 72 14 93/78 L 100 Nasal Cannula 4 07/12/22 09:35 73 19 95/78 L 100 Nasal Cannula 4 07/12/22 09:36 77 30 H 103/87 97 Nasal Cannula 4 07/12/22 09:21 107 H 14 98/82 L 100 Nasal Cannula 3 07/12/22 09:16 109 H 18 103/86 100 Nasal Cannula 3 07/12/22 09:00 102 H 18 96/80 L 100 Nasal Cannula 3 07/12/22 08:30 104 H 14 105/89 96 Room Air 07/12/22 08:11 139 H 102/76 07/12/22 08:11 110 H 94/74 L 07/12/22 08:10 97.8 F 96 20 99/76 L 94 07/12/22 08:10 97.8 F 96 20 99/76 L 94 07/12/22 08:08 108 H 07/12/22 06:00 98
[2022-07-12] MEDS: EPOETIN ALFA-EPBX 10,000 UNITS/ML VIAL 10000 UNITS IV PUSH (13:14)
[2022-07-12] MEDS: SODIUM CHLORIDE 0.9% IV 1,000 ML 999 ML IV CONT (13:15)
--- NOTE | 2022-07-12 14:40 | PM.IMPN ---
Progress Note: A&P Assessment and Plan (1) Endocarditis: Code(s): I38 - Endocarditis, valve unspecified Status: Acute Assessment and Plan: Patient underwent HALEY with cardioversion today. HALEY showing severe MR with possible small, hypermobile vegetation at the tip of the anterior leaflet of the mitral valve.? BCx drawn on admission remain negative. No unexplained fevers or chills. BCx repeated. Despite the vegetation noted, he does not meet the Joel criteria with only one major and one minor criteria. Consider marantic vs culture-negative endocarditis. Add Vanco for emperic coverage for culture negative endocarditis. (2) Severe mitral regurgitation: Code(s): I34.0 - Nonrheumatic mitral (valve) insufficiency Status: Acute Assessment and Plan: As above. HALEY showing severe MR. Will need to have this further evaluated and treated. (3) Atrial fibrillation with rapid ventricular response: Code(s): I48.91 - Unspecified atrial fibrillation Status: Chronic Assessment and Plan: The patient sent to the ED from HD due to HoTN and tachycardia. Found to be in AFib. Previously paroxysmal but now persistent AFib with RVR. Metoprolol dose was reduced recently due to hypotension. He had improvement after IV Lopressor 5mg x 1. Seen by Cardiology and Amio started. He remains on Eliquis. He had successful cardioversion this morning. Appreciate Cardiology input. Continue to monitor on tele. (4) Hypotension: Code(s): I95.9 - Hypotension, unspecified Status: Acute Assessment and Plan: Low blood pressure, perhaps due to atrial fibrillation, but also perhaps due to some autonomic dysfunction. Consider sepsis but no evidence of infection. BCx NGTD. WBC normal now and he has not received abx so probably more of a stress response. BP still soft and not tolerating metoprolol. He does take furosemide 80mg daily at home but this is on hold. Continue Midodrine. Continue to follow. (5) Lactic acidosis: Code(s): E87.20 - Acidosis, unspecified Status: Acute Assessment and Plan: Lactic acid 8.4 on admission felt related to poor clearance and tissue hypoperfusion. Repeat lactic level has normalized. (6) Hyperkalemia: Code(s): E87.5 - Hyperkalemia Status: Resolved Assessment and Plan: Potassium 6.3 on admission. Potassium level better after HD; metabolic acidosis also resolved. Continue to use HD to control potassium level. Follow. (7) Elevated liver enzymes: Code(s): R74.8 - Abnormal levels of other serum enzymes Status: Acute Assessment and Plan: LFTs noted to be mildly elevated. Suspect also related to hypoperfusion and/or congestion. Noted before. Will follow. (8) End-stage renal disease on hemodialysis: Code(s): N18.6 - End stage renal disease; Z99.2 - Dependence on renal dialysis Status: Acute Assessment and Plan: Stable. Continue renal diet. Nephrology consulted and appreciate their input. Continue HD per their recommendations. Plan Weakness - Improving. Continue PT/OT. Thrombocytopenia - Plt count dropped to 129K but not uncommon for this patient. Count better today. Subjective Date/time seen: 07/12/22 14:40 Interval history: 76yo male with ESRD and AFib here for low BP and elevated HR. Feels well today. Had cardioversion and HD earlier today. Toelrated these procedures well. No CP or palpitations. No fever of chills prior to admission. No n/v. Exam Narrative: AF 97.9 97/69 80 20 100% ra Gen - NARD Chest - CTA bilaterally, nml RR. right upper chest tunnelled cath CV - RRR S1/S2. Tele showing NSR Abd - Soft, NT/ND, Positive BS. PD cath site clean and dry Ext - No pedal edema. no osler, JW or splinter hem Psych - Nml mood and affect. Skin - Warm and dry Objective Data Vital Signs Vital Signs: Vital Signs - 24 hr 07/11/22 16:00 07/11/22 17:05 11
[2022-07-12] MEDS: polyethylene glycoL 3350 17 GM POWD.PACK PO (17:50)
[2022-07-13] VITALS (16 sets, daily range): BP systolic 85–115; BP diastolic 57–88; PULSE 59–122; RESP 14–16; TEMP 35.8–36.6; O2SAT 94–100
[2022-07-13 03:35] LABS: Basophils Absolute Auto 0.1 K/mm3 (0.0-0.1); Basophils Percent Auto 0.6 % (0.2-1.2); Eosinophils Absolute Auto 0.1 K/mm3 (0-0.3); Eosinophils Percent Auto 1.3 % (0-4.4); Hematocrit 36.4 % (42.0-52.0); Hemoglobin 11.5 g/dL (14.0-18.0); Lymphocytes Absolute Auto 1.89 K/mm3 (0.9-3.2); Mean Corpuscular HGB Conc 31.6 g/dl (32-36); Mean Corpuscular Hemoglobin 33.1 pg (26-34); Mean Corpuscular Volume 104.9 fl (80-100); Monocytes Absolute Auto 0.9 K/mm3 (0.1-0.6); Monocytes Percent Auto 8.9 % (2.6-8.5); Neutrophils Absolute Auto 6.9 K/mm3 (1.3-6.7); Neutrophils Percent Auto 69.2 % (45.5-73.1); Platelet Count Result 144 k/mm3 (150-375); Red Blood Count 3.47 M/mm3 (4.6-6.20); Red Cell Distribution Width 17.2 % (11.5-14.5)
[2022-07-13 04:14] LABS: Albumin Level 3.4 g/dL (3.5-5.1); Anion Gap 9 mmol/L (8-16); Blood Urea Nitrogen 23 mg/dL (9-20); CRP 0.7 mg/dL (<1.0); Calcium 8.4 mg/dL (8.4-10.2); Carbon Dioxide 29 mmol/L (22-30); Chloride 96 mmol/L (98-107); Estimated CRCL calculation 15 ml/min; Estimated Glomerular Filt Rate 15; Glucose 92 mg/dL (65-110); Potassium 4.2 mmol/L (3.4-5.0); Sodium 134 mmol/L (137-145)
--- NOTE | 2022-07-13 05:18 | ECG_ITS ---
Measurements Intervals [place] Rate: 104 P: GA: 0 QRS: -23 QRSD: 113 T: 135 QT: 390 QTc: 514 Interpretive Statements ATRIAL FIBRILLATION WITH RAPID VENTRICULAR RESPONSE INCOMPLETE LEFT BUNDLE BRANCH BLOCK LOW QRS VOLTAGE IN LIMB LEADS POOR R WAVE PROGRESSION, ANTERIOR LEADS INFERIOR INFARCT, AGE INDETERMINATE ST-T WAVE ABNORMALITY IN HIGH LATERAL LEADS- CONSIDER ISCHEMIA BASELINE ARTIFACT- I, II, AVR, AVL, AVF ABNORMAL ECG COMPARED TO ECG 07/12/2022 09:38:33 ATRIAL FIBRILLATION NOW PRESENT MYOCARDIAL INFARCT FINDING NOW PRESENT Electronically Signed On 07-13-2022 10:01:45 METHOD CONSULTANT by Vikram Ochoa D.O.
[2022-07-13 08:02] LABS: Alanine Aminotransferase 66 U/L (6-50); Albumin Level 3.3 g/dL (3.5-5.1); Alkaline Phosphatase 71 U/L (38-126); Aspartate Amino Transferase 37 U/L (17-59); Bilirubin,Total 1.2 mg/dL (0.2-1.3)
[2022-07-13] MEDS: calcitrioL 0.25 MCG CAPSULE PO (09:04)
[2022-07-13] MEDS: MIDODRINE HCL 10 MG TABLET PO ×3 (09:04→17:24)
[2022-07-13] MEDS: ATORVASTATIN 40 MG TABLET PO (09:05)
[2022-07-13] MEDS: AMIODARONE HCL 200 MG TABLET 400 MG PO ×2 (09:05→17:24)
[2022-07-13] MEDS: APIXABAN 2.5 MG TABLET PO ×2 (09:05→20:00)
[2022-07-13 09:08] LABS: Folic Acid 6.5 ng/mL (2.76->20)
--- NOTE | 2022-07-13 10:47 | PM.PNCARD ---
Progress Note: A&P Assessment and Plan (1) Atrial fibrillation with rapid ventricular response: Code(s): I48.91 - Unspecified atrial fibrillation Status: Chronic Assessment and Plan: Previously paroxysmal, now persistent AFib, initially with RVR Underwent HALEY-guided DCCV 07/12 with successful voodoo of sinus rhythm using 150J of biphasic energy which did restore sinus rhythm. However, patient went back into AFIB RVR overnight, HR is controlled this AM. At this point we will pursue a rate control strategy. Continue with Amiodarone 400mg BID. Continue with Eliquis. Would try to reinstate Metoprolol and see how his blood pressure tolerates it. Of note, HALEY did show possible vegetation associated with the anterior leaflet of the mitral valve.? This is small but there is a hypermobile structure at the tip. Blood cultures were ordered 07/12. Would rule out endocarditis. In the long-term, his mitral regurgitation is a significant issue. Mitral valve will need to be replaced or repaired. (2) CAD (coronary artery disease): Qualifiers: Coronary Disease-Associated Artery/Lesion type: [place] artery [place] vs. transplanted heart: [place] heart Associated angina: without angina Qualified Code(s): I25.10 - Atherosclerotic heart disease of [place] coronary artery without angina pectoris Code(s): I25.10 - Atherosclerotic heart disease of [place] coronary artery without angina pectoris Status: Acute Assessment and Plan: History of CAD and stent, stable. (3) Mitral regurgitation: Code(s): I34.0 - Nonrheumatic mitral (valve) insufficiency Status: Acute Assessment and Plan: Severe MR. There is lack of closure of the mitral valve resulting in severe mitral regurgitation. In the long-term, his mitral regurgitation is a significant issue. Mitral valve will need to be replaced or repaired. (4) LV dysfunction: Code(s): I51.9 - Heart disease, unspecified Status: Acute Assessment and Plan: HALEY showing LVEF 35-40%. At this time, given his issues with hypotension, he will not be able to tolerate GDMT. Cannot use SGLT-2 inhibitors due to ESRD. Subjective Date/time seen: 07/13/22 10:47 Interval history: Reason for visit: Atrial fibrillation Date of service 07/13/2022: Underwent successful HALEY-guided DCCV yesterday, however, patient went back into AFIB with RVR overnight. Patient states this morning he is feeling well. No chest pain, palpitations, shortness of breath. Review of Systems Review of Systems: 8-point ROS obtained. Negative, unless stated in HPI. Exam Const: General: cooperative, healthy appearing and comfortable Orientation/consciousness: oriented to person and patient oriented x3 HENMT: Mouth: Yes moist mucous membranes Eyes: General: appearance normal, both eyes and all related structures Sclera: sclerae normal Neck: Neck: supple Resp: Effort & Inspection: normal respiratory effort Auscultation: clear to auscultation bilaterally Cardio: Rate: regular rate Rhythm: abnormal rhythm irregularly irregular Heart sounds: Murmur heart sound present systolic GI: Inspection: normal to inspection Skin: General skin exam: normal color Neuro: General: oriented to person and patient oriented x3 Extrem: Right lower extremity: no edema Left lower extremity: no edema Psych: Appearance: grossly normal Mental Status: mental status grossly normal Objective Data Vital Signs Vital Signs: Vital Signs - 24 hr 07/12/22 11:30 07/12/22 11:35 07/12/22 11:40 Temperature 36.6 C Pulse Rate 66 63 64 Respiratory Rate 18 Blood Pressure 107/42 L 98/64 L 105/71 Pulse Oximetry Oxygen Delivery 07/12/22 12:00 07/12/22 12:20 07/12/22 12:40 Temperature Pulse Rate 88 65 74 Respiratory Rate Blood Pressure 100/60 99/67 L 99/72 L Pulse Oximetry Oxygen Delivery 07/12/22 13:00 07/12/22 13:20 07/12/22 13:40 Tem
--- NOTE | 2022-07-13 11:55 | P.PNNP_ITS ---
Progress Note: A&P Assessment and Plan (1) End stage renal disease: Code(s): N18.6 - End stage renal disease Status: Chronic Assessment and Plan: * HD due on Friday * volume status looks okay. Has just a small amount of swelling * his blood pressure is somewhat soft so he will probably always have a little edema. * Potassium is okay (2) Severe mitral regurgitation: Code(s): I34.0 - Nonrheumatic mitral (valve) insufficiency Status: Acute Assessment and Plan: * this is a new finding. * this is further complicated by possible vegetation of the valve * Four sets of blood cultures are negative so far * he is getting IV antibiotics. * (3) Hyperkalemia: Code(s): E87.5 - Hyperkalemia Status: Resolved Assessment and Plan: * resolved * treated with medical management and dialysis * due to dietary indiscretion(?) * follow trend of K+ (4) Atrial fibrillation with rapid ventricular response: Code(s): I48.91 - Unspecified atrial fibrillation Status: Chronic Assessment and Plan: * noted on admission with RVR * presumed etiology of weakness * s/p HALEY with cardioversion on 07/12/22 * Now back in AFib again. * on anticoagulation (on Eliquis) * On amiodarone. * Cardiology following (5) Hypotension: Code(s): I95.9 - Hypotension, unspecified Status: Acute Assessment and Plan: * somewhat of a new issue * midodrine dosage had recently been increased * follow trend of hemodynamics (6) Diabetes: Code(s): E11.9 - Type 2 diabetes mellitus without complications Status: Chronic Assessment and Plan: On Accu-Cheks and sliding-scale insulin per hospitalist. Subjective Date/time seen: 07/13/22 11:55 Interval history: the patient is lying flat in bed comfortably. Yesterday had cardioversion. Last night he went back into AFib. He cannot tell when he is in AFib or not. His heart rate is around 100 Exam Narrative: General: elderly male in NAD Heart: irregular rhythm, heart rate at the upper limit of normal of 100. normal S1 and S2; no rub Lungs: clear Abdomen: soft, nontender, nondistended, positive bowel sounds Extremities: no cyanosis or clubbing; no edema Skin: no rash Objective Data Vital Signs Vital Signs: Vital Signs - 24 hr 07/12/22 12:00 07/12/22 12:20 07/12/22 12:40 Temperature Pulse Rate 88 65 74 Respiratory Rate Blood Pressure 100/60 99/67 L 99/72 L Pulse Oximetry Oxygen Delivery 07/12/22 13:00 07/12/22 13:20 07/12/22 13:40 Temperature Pulse Rate 65 67 73 Respiratory Rate Blood Pressure 103/56 L 106/71 102/71 Pulse Oximetry Oxygen Delivery 07/12/22 14:00 07/12/22 14:20 07/12/22 14:36 Temperature Pulse Rate 78 74 78 Respiratory Rate Blood Pressure 102/55 L 107/66 95/62 L Pulse Oximetry Oxygen Delivery 07/12/22 14:47 07/12/22 15:09 07/12/22 12:00 Temperature 36.6 C 36.6 C Pulse Rate 80 80 Respiratory Rate 18 20 Blood Pressure 98/73 L 97/69 L Pulse Oximetry 100 Oxygen Delivery
--- NOTE | 2022-07-13 11:55 | PM.PNNEP ---
Progress Note: A&P Assessment and Plan (1) End stage renal disease: Code(s): N18.6 - End stage renal disease Status: Chronic Assessment and Plan: HD due on Friday volume status looks okay. Has just a small amount of swelling his blood pressure is somewhat soft so he will probably always have a little edema. Potassium is okay (2) Severe mitral regurgitation: Code(s): I34.0 - Nonrheumatic mitral (valve) insufficiency Status: Acute Assessment and Plan: this is a new finding. this is further complicated by possible vegetation of the valve Four sets of blood cultures are negative so far he is getting IV antibiotics. (3) Hyperkalemia: Code(s): E87.5 - Hyperkalemia Status: Resolved Assessment and Plan: resolved treated with medical management and dialysis due to dietary indiscretion(?) follow trend of K+ (4) Atrial fibrillation with rapid ventricular response: Code(s): I48.91 - Unspecified atrial fibrillation Status: Chronic Assessment and Plan: noted on admission with RVR presumed etiology of weakness s/p HALEY with cardioversion on 07/12/22 Now back in AFib again. on anticoagulation (on Eliquis) On amiodarone. Cardiology following (5) Hypotension: Code(s): I95.9 - Hypotension, unspecified Status: Acute Assessment and Plan: somewhat of a new issue midodrine dosage had recently been increased follow trend of hemodynamics (6) Diabetes: Code(s): E11.9 - Type 2 diabetes mellitus without complications Status: Chronic Assessment and Plan: On Accu-Cheks and sliding-scale insulin per hospitalist. Subjective Date/time seen: 07/13/22 11:55 Interval history: the patient is lying flat in bed comfortably. Yesterday had cardioversion. Last night he went back into AFib. He cannot tell when he is in AFib or not. His heart rate is around 100 Exam Narrative: General: elderly male in NAD Heart: irregular rhythm, heart rate at the upper limit of normal of 100. normal S1 and S2; no rub Lungs: clear Abdomen: soft, nontender, nondistended, positive bowel sounds Extremities: no cyanosis or clubbing; no edema Skin: no rash Objective Data Vital Signs Vital Signs: Vital Signs - 24 hr 07/12/22 12:00 07/12/22 12:20 07/12/22 12:40 Temperature Pulse Rate 88 65 74 Respiratory Rate Blood Pressure 100/60 99/67 L 99/72 L Pulse Oximetry Oxygen Delivery 07/12/22 13:00 07/12/22 13:20 07/12/22 13:40 Temperature Pulse Rate 65 67 73 Respiratory Rate Blood Pressure 103/56 L 106/71 102/71 Pulse Oximetry Oxygen Delivery 07/12/22 14:00 07/12/22 14:20 07/12/22 14:36 Temperature Pulse Rate 78 74 78 Respiratory Rate Blood Pressure 102/55 L 107/66 95/62 L Pulse Oximetry Oxygen Delivery 07/12/22 14:47 07/12/22 15:09 07/12/22 12:00 Temperature 36.6 C 36.6 C Pulse Rate 80 80 Respiratory Rate 18 20 Blood Pressure 98/73 L 97/69 L Pulse Oximetry 100 Oxygen Delivery Room Air 07/12/22 12:00 07/12/22 14:00 07/12/22 16:00 Temperature Pulse Rate 69 76 Respiratory Rate Blood Pressure Pulse Oximetry Oxygen Delivery Room Air 07/12/22 16:00 07/12/22 18:00 07/12/22 17:50 Temperature Pulse Rate 74 71 64 Respiratory Rate Blood Pressure Pulse Oximetry Oxygen Delivery 07/12/22 20:00 07/12/22 23:52 07/13/22 02:28 Temperature 36.2 C L 36.4 C Pulse Rate 69 70 Respiratory Rate 18 18 Blood Pressure 97/72 L 85/58 L 95/73 L Pulse Oximetry 94 90 Oxygen Delivery 07/13/22 04:00 07/12/22 20:00 07/12/22 22:00 Temperature Pulse Rate 70 71 Respiratory Rate Blood Pressure Pulse Oximetry Oxygen Delivery Room Air 07/13/22 00:00 07/13/22 02:00 07/13/22 04:00 Temperature Pulse Rate 70 69 108 H Respiratory Rate Blood
[2022-07-13] MEDS: polyethylene glycoL 3350 17 GM POWD.PACK PO (13:53)
--- NOTE | 2022-07-13 14:03 | PM.IMPN ---
Progress Note: A&P Assessment and Plan (1) Endocarditis: Code(s): I38 - Endocarditis, valve unspecified Status: Acute Assessment and Plan: Patient underwent HALEY with cardioversion 07/12. HALEY showing severe MR with possible small, hypermobile vegetation at the tip of the anterior leaflet of the mitral valve.? BCx (07/09) drawn on admission remain negative. No unexplained fevers or chills. BCx (07/12) NGTD. Despite the vegetation noted, he does not meet the Joel criteria with only one major and one minor criteria. Consider marantic vs culture-negative endocarditis. Vanco added for emperic coverage for culture negative endocarditis. Would consider treatment for 6 weeks and re-image. (2) Severe mitral regurgitation: Code(s): I34.0 - Nonrheumatic mitral (valve) insufficiency Status: Acute Assessment and Plan: As above. HALEY showing severe MR. Will need to have this further evaluated and treated. (3) Atrial fibrillation with rapid ventricular response: Code(s): I48.91 - Unspecified atrial fibrillation Status: Chronic Assessment and Plan: The patient sent to the ED from HD due to HoTN and tachycardia. Found to be in AFib. Previously paroxysmal but now persistent AFib with RVR. Metoprolol dose was reduced recently due to hypotension. He had improvement after IV Lopressor 5mg x 1. Seen by Cardiology and Amio started. He remains on Eliquis. He had successful cardioversion on 07/12 but went back into AFib that evening. Appreciate Cardiology input. Continue to monitor on tele. Discussed with Cards (4) Hypotension: Code(s): I95.9 - Hypotension, unspecified Status: Acute Assessment and Plan: Low blood pressure, perhaps due to atrial fibrillation, but also perhaps due to some autonomic dysfunction. Consider sepsis but doubt related to the ?endocarditis. BCx NGTD. WBC normalized without abx (Vanco added yesterday) so probably more of a stress response. BP still soft. Metoprolol added back so monitor carefully. He does take furosemide 80mg daily at home but this is on hold. Continue Midodrine. Continue to follow. (5) Lactic acidosis: Code(s): E87.20 - Acidosis, unspecified Status: Acute Assessment and Plan: Lactic acid 8.4 on admission felt related to poor clearance and tissue hypoperfusion. Repeat lactic level has normalized. (6) Hyperkalemia: Code(s): E87.5 - Hyperkalemia Status: Resolved Assessment and Plan: Potassium 6.3 on admission. Potassium level better after HD; metabolic acidosis also resolved. Continue to use HD to control potassium level. Follow. (7) Elevated liver enzymes: Code(s): R74.8 - Abnormal levels of other serum enzymes Status: Acute Assessment and Plan: LFTs noted to be mildly elevated. Suspect also related to hypoperfusion and/or congestion. Noted before. Levels trending down. Will follow. (8) End-stage renal disease on hemodialysis: Code(s): N18.6 - End stage renal disease; Z99.2 - Dependence on renal dialysis Status: Acute Assessment and Plan: Stable. Continue renal diet. Nephrology consulted and appreciate their input. Continue HD per their recommendations. Plan Weakness - Improving. Continue PT/OT. Thrombocytopenia - Plt count dropped to 129K but not uncommon for this patient. Count better. LV dysfunction - HALEY showing LVEF 35-40%. Add appropriate medications as toelrated. Subjective Date/time seen: 07/13/22 14:03 Interval history: 76yo male with ESRD and AFib here for low BP and elevated HR. Cardioverted sucesfully yesterday but went back into AFib last night. Feels tires today. No CP or SOB. No n/v Exam Narrative: AF 96.5 94/81 87 14 100% ra Gen - NARD sitting up in chair Chest - CTA bilaterally, nml RR. right upper chest tunnelled cath CV - RRR S1/S2. Tele showing AFib with controlled rate mostly. Abd - Soft, NT/ND,
[2022-07-14] VITALS (16 sets, daily range): BP systolic 83–110; BP diastolic 64–77; PULSE 76–138; RESP 14–20; TEMP 36.1–37.1; O2SAT 94–100
[2022-07-14 05:29] LABS: Albumin Level 3.4 g/dL (3.5-5.1); Anion Gap 11 mmol/L (8-16); Blood Urea Nitrogen 31 mg/dL (9-20); Calcium 8.3 mg/dL (8.4-10.2); Carbon Dioxide 26 mmol/L (22-30); Chloride 96 mmol/L (98-107); Estimated CRCL calculation 10 ml/min; Estimated Glomerular Filt Rate 11; Glucose 106 mg/dL (65-110); Phosphorus 4.9 mg/dL (2.5-4.5); Potassium 4.2 mmol/L (3.4-5.0); Sodium 133 mmol/L (137-145)
[2022-07-14 05:47] LABS: Vancomycin Random 10.9 ug/mL (10-20)
[2022-07-14] MEDS: AMIODARONE HCL 200 MG TABLET 400 MG PO ×2 (08:12→17:18)
[2022-07-14] MEDS: MIDODRINE HCL 10 MG TABLET PO ×3 (08:14→17:18)
[2022-07-14] MEDS: ATORVASTATIN 40 MG TABLET PO (08:14)
[2022-07-14] MEDS: calcitrioL 0.25 MCG CAPSULE PO (08:14)
[2022-07-14] MEDS: APIXABAN 2.5 MG TABLET PO ×2 (08:14→20:25)
--- NOTE | 2022-07-14 08:28 | ECG_ITS ---
Measurements Intervals [place] Rate: 114 P: CT: 0 QRS: -32 QRSD: 117 T: 132 QT: 349 QTc: 482 Interpretive Statements ATRIAL FIBRILLATION WITH RAPID VENTRICULAR RESPONSE LEFT AXIS DEVIATION INCOMPLETE LEFT BUNDLE BRANCH BLOCK LOW QRS VOLTAGE IN LIMB LEADS CONSIDER INFERIOR INFARCT, AGE INDETERMINATE ST-T WAVE ABNORMALITY IN HIGH LATERAL LEADS- CONSIDER ISCHEMIA ABNORMAL ECG COMPARED TO ECG 07/13/2022 09:28:11 LEFT-AXIS DEVIATION NOW PRESENT Electronically Signed On 07-14-2022 9:23:15 REGULATORY AUDITOR by Vikram Ochoa D.O.
[2022-07-14 08:42] LABS: Magnesium 2.2 mg/dL (1.6-2.3)
[2022-07-14 08:48] LABS: Hematocrit 36.9 % (42.0-52.0); Hemoglobin 11.6 g/dL (14.0-18.0); Mean Corpuscular HGB Conc 31.4 g/dl (32-36); Mean Corpuscular Hemoglobin 33.1 pg (26-34); Mean Corpuscular Volume 105.4 fl (80-100); Platelet Count Result 152 k/mm3 (150-375); Red Cell Distribution Width 17.7 % (11.5-14.5); White Blood Count 10.2 K/mm3 (4.5-10.0)
--- NOTE | 2022-07-14 10:07 | P.PNNP_ITS ---
Progress Note: A&P Assessment and Plan (1) End stage renal disease: Code(s): N18.6 - End stage renal disease Status: Chronic Assessment and Plan: * HD due on Friday * volume status looks okay. Has just a small amount of swelling * his blood pressure is somewhat soft so he will probably always have a little edema. * Potassium is doing well. (2) Severe mitral regurgitation: Code(s): I34.0 - Nonrheumatic mitral (valve) insufficiency Status: Acute Assessment and Plan: * this is a new finding. * this is further complicated by possible vegetation of the valve * Four sets of blood cultures are negative so far * he is getting IV antibiotics just in case. * Endocarditis seems to be less likely per Dr Baldwin. * he will need repair/replacement of the valve. (3) Hyperkalemia: Code(s): E87.5 - Hyperkalemia Status: Resolved Assessment and Plan: * resolved * treated with medical management and dialysis * due to dietary indiscretion(?) * K 4.2 today. (4) Atrial fibrillation with rapid ventricular response: Code(s): I48.91 - Unspecified atrial fibrillation Status: Chronic Assessment and Plan: * noted on admission with RVR * presumed etiology of weakness * s/p HALEY with cardioversion on 07/12/22 * Now back in AFib again. * on anticoagulation (on Eliquis) * On amiodarone. * Cardiology following * Dr Baldwin and I discussed dig okay to use. 0.125mg per day and we can get weekly levels at dialysis. (5) Hypotension: Code(s): I95.9 - Hypotension, unspecified Status: Acute Assessment and Plan: * somewhat of a new issue * Full evaluation done already. TSH and cortisol levels have been okay. * midodrine dosage had recently been increased * follow trend of hemodynamics (6) Diabetes: Code(s): E11.9 - Type 2 diabetes mellitus without complications Status: Chronic Assessment and Plan: On Accu-Cheks and sliding-scale insulin per hospitalist. Subjective Date/time seen: 07/14/22 10:07 Interval history: the patient is lying flat in bed comfortably. Still in AFib. Heart rate ranges between 90 and [address] Baldwin. any exertion causes very high heart rate. He cannot tell when he is in AFib or not. No shortness of breath. Eating okay. Exam Narrative: General: elderly male in NAD Heart: irregular rhythm, heart rate at the upper limit of normal of 100. normal S1 and S2; no rub Lungs: clear bilaterally Abdomen: soft, nontender, nondistended, positive bowel sounds Extremities: no cyanosis or clubbing; no edema Skin: no rash or subQ nodules Objective Data Vital Signs Vital Signs: Vital Signs - 24 hr 07/13/22 12:00 07/13/22 12:00 07/13/22 14:00 Temperature 35.8 C L Pulse Rate 87 115 H 109 H Respiratory Rate 14 Blood Pressure 94/81 L Pulse Oximetry 100 Oxygen Delivery 07/13/22 12:00 07/13/22 16:00 07/13/22 16:00 Temperature 36.1 C L Pulse Rate 92 Respiratory Rate 14 Blood Pressure 89/57 L Pulse Oximetry 96 Oxygen Delivery Room Air Room Air 07/13/22 16:00 07/13/22 17:24 07/13/22 18:00 Temperature Pulse Rate 91 84 85 Respirator
--- NOTE | 2022-07-14 10:07 | PM.PNNEP ---
Progress Note: A&P Assessment and Plan (1) End stage renal disease: Code(s): N18.6 - End stage renal disease Status: Chronic Assessment and Plan: HD due on Friday volume status looks okay. Has just a small amount of swelling his blood pressure is somewhat soft so he will probably always have a little edema. Potassium is doing well. (2) Severe mitral regurgitation: Code(s): I34.0 - Nonrheumatic mitral (valve) insufficiency Status: Acute Assessment and Plan: this is a new finding. this is further complicated by possible vegetation of the valve Four sets of blood cultures are negative so far he is getting IV antibiotics just in case. Endocarditis seems to be less likely per Dr Baldwin. he will need repair/replacement of the valve. (3) Hyperkalemia: Code(s): E87.5 - Hyperkalemia Status: Resolved Assessment and Plan: resolved treated with medical management and dialysis due to dietary indiscretion(?) K 4.2 today. (4) Atrial fibrillation with rapid ventricular response: Code(s): I48.91 - Unspecified atrial fibrillation Status: Chronic Assessment and Plan: noted on admission with RVR presumed etiology of weakness s/p HALEY with cardioversion on 07/12/22 Now back in AFib again. on anticoagulation (on Eliquis) On amiodarone. Cardiology following Dr Baldwin and I discussed dig okay to use. 0.125mg per day and we can get weekly levels at dialysis. (5) Hypotension: Code(s): I95.9 - Hypotension, unspecified Status: Acute Assessment and Plan: somewhat of a new issue Full evaluation done already. TSH and cortisol levels have been okay. midodrine dosage had recently been increased follow trend of hemodynamics (6) Diabetes: Code(s): E11.9 - Type 2 diabetes mellitus without complications Status: Chronic Assessment and Plan: On Accu-Cheks and sliding-scale insulin per hospitalist. Subjective Date/time seen: 07/14/22 10:07 Interval history: the patient is lying flat in bed comfortably. Still in AFib. Heart rate ranges between 90 and [address] Baldwin. any exertion causes very high heart rate. He cannot tell when he is in AFib or not. No shortness of breath. Eating okay. Exam Narrative: General: elderly male in NAD Heart: irregular rhythm, heart rate at the upper limit of normal of 100. normal S1 and S2; no rub Lungs: clear bilaterally Abdomen: soft, nontender, nondistended, positive bowel sounds Extremities: no cyanosis or clubbing; no edema Skin: no rash or subQ nodules Objective Data Vital Signs Vital Signs: Vital Signs - 24 hr 07/13/22 12:00 07/13/22 12:00 07/13/22 14:00 Temperature 35.8 C L Pulse Rate 87 115 H 109 H Respiratory Rate 14 Blood Pressure 94/81 L Pulse Oximetry 100 Oxygen Delivery 07/13/22 12:00 07/13/22 16:00 07/13/22 16:00 Temperature 36.1 C L Pulse Rate 92 Respiratory Rate 14 Blood Pressure 89/57 L Pulse Oximetry 96 Oxygen Delivery Room Air Room Air 07/13/22 16:00 07/13/22 17:24 07/13/22 18:00 Temperature Pulse Rate 91 84 85 Respiratory Rate Blood Pressure Pulse Oximetry Oxygen Delivery 07/13/22 20:00 07/13/22 20:00 07/13/22 20:00 Temperature 36.6 C Pulse Rate 84 Respiratory Rate 16 Blood Pressure 91/72 L 91/72 L 96/69 L Pulse Oximetry 97 Oxygen Delivery 07/13/22 20:00 07/13/22 20:00 07/13/22 20:00 Temperature Pulse Rate 85 Respiratory Rate Blood Pressure 99/70 L Pulse Oximetry Oxygen Delivery Room Air 07/13/22 22:00 07/14/22 00:00 07/14/22 00:00 Temperature 36.1 C L Pulse Rate 90 76 Respiratory Rate 18 Blood Pressure 99/70 L Pulse Oximetry 97 Oxygen Delivery Room Air 07/14/22 00:00 07/14/22 02:00 07/14/22 04:00 Temperature Pulse Rate 105 H 96 Respiratory Rate
--- NOTE | 2022-07-14 10:12 | PM.PNCARD ---
Progress Note: A&P Assessment and Plan (1) Atrial fibrillation with rapid ventricular response: Code(s): I48.91 - Unspecified atrial fibrillation Status: Chronic Assessment and Plan: Previously paroxysmal, now persistent AFib, initially with RVR Underwent HALEY-guided DCCV 07/12 with successful taoist of sinus rhythm using 150J of biphasic energy which did restore sinus rhythm. However, patient went back into AFIB RVR overnight At this point we will pursue a rate control strategy. Continue with Amiodarone 400mg BID. Continue with Eliquis. He cannot tolerate beta-blockers due to SBP in the 80s. Remains on Midodrine for low blood pressures. At this point, we have very limited options in terms of management for his atrial fibrillation. Since he continues to have AFIB with RVR with any movement on good dose of Amiodarone, will try Digoxin for additional rate control. Discussed with Dr. Sevilla with Nephrology and he is okay with this. Of note, HALEY did show possible vegetation associated with the anterior leaflet of the mitral valve.? This is small but there is a hypermobile structure at the tip. Blood cultures were ordered 07/12 and have remained negative. Clinically, no signs or symptoms of infective endocarditis. In the long-term, his mitral regurgitation is a significant issue. Mitral valve will need to be replaced or repaired. (2) CAD (coronary artery disease): Qualifiers: Coronary Disease-Associated Artery/Lesion type: [place] artery [place] vs. transplanted heart: [place] heart Associated angina: without angina Qualified Code(s): I25.10 - Atherosclerotic heart disease of [place] coronary artery without angina pectoris Code(s): I25.10 - Atherosclerotic heart disease of [place] coronary artery without angina pectoris Status: Acute Assessment and Plan: History of CAD and stent, stable. (3) Mitral regurgitation: Code(s): I34.0 - Nonrheumatic mitral (valve) insufficiency Status: Acute Assessment and Plan: Severe MR. There is lack of closure of the mitral valve resulting in severe mitral regurgitation. In the long-term, his mitral regurgitation is a significant issue. Mitral valve will need to be replaced or repaired. (4) LV dysfunction: Code(s): I51.9 - Heart disease, unspecified Status: Acute Assessment and Plan: HALEY showing LVEF 35-40%. At this time, given his issues with hypotension, he will not be able to tolerate GDMT. Cannot use SGLT-2 inhibitors due to ESRD. Subjective Date/time seen: 07/14/22 10:12 Interval history: Reason for visit: Atrial fibrillation Date of service 07/13/2022: Underwent successful HALEY-guided DCCV yesterday, however, patient went back into AFIB with RVR overnight. Patient states this morning he is feeling well. No chest pain, palpitations, shortness of breath. Date of service 07/14/2022: No acute events overnight. Remains in atrial fibrillation. When he is laying still, he is rate-controlled, however with any movement he goes into RVR. This morning, patient states he had gotten up to walk to the bathroom and was brushing his teeth when tele showed his HR in the 140s-150s. Patient denies chest pain, palpitations, shortness of breath, and states he is otherwise feeling okay. He does not really notice the AFIB. Review of Systems Review of Systems: 8-point ROS obtained. Negative, unless stated in HPI. Exam Const: General: cooperative, healthy appearing and comfortable Orientation/consciousness: oriented to person and patient oriented x3 HENMT: Mouth: Yes moist mucous membranes Eyes: General: appearance normal, both eyes and all related structures Sclera: sclerae normal Neck: Neck: supple Resp: Effort & Inspection: normal respiratory effort Auscultation: clear to auscultation bilaterally Cardio: Rate: regular rate Rhythm: abnormal rhythm irregularly irregular Heart sounds: Murmur heart sound pr
[2022-07-14] MEDS: DIGOXIN TAB 125 MCG TABLET PO (11:28)
--- NOTE | 2022-07-14 15:18 | PM.IMPN ---
Progress Note: A&P Assessment and Plan (1) Endocarditis: Code(s): I38 - Endocarditis, valve unspecified Status: Acute Assessment and Plan: Patient underwent HALEY with cardioversion 07/12. HALEY showing severe MR with possible small, hypermobile vegetation at the tip of the anterior leaflet of the mitral valve.? BCx (07/09) drawn on admission remain negative. No unexplained fevers or chills. BCx (07/12) NGTD. Despite the vegetation noted, he does not meet the Joel criteria with only one major and one minor criteria. Consider marantic vs culture-negative endocarditis. Vanco added for emperic coverage for culture negative endocarditis. Would consider treatment for 6 weeks and re-image. (2) Severe mitral regurgitation: Code(s): I34.0 - Nonrheumatic mitral (valve) insufficiency Status: Acute Assessment and Plan: As above. HALEY showing severe MR. Will need to have this further evaluated and treated. (3) Atrial fibrillation with rapid ventricular response: Code(s): I48.91 - Unspecified atrial fibrillation Status: Chronic Assessment and Plan: The patient sent to the ED from HD due to HoTN and tachycardia. Found to be in AFib. Previously paroxysmal but now persistent AFib with RVR. He had improvement after IV Lopressor 5mg x 1. Metoprolol dose was reduced recently due to hypotension; now off metoprolol altogether. Amiodarone started. He remains on Eliquis. He had successful cardioversion on 07/12 but went back into AFib that evening. Appreciate Cardiology input. Digoxin added. Continue to monitor on tele. Discussed with Cards (4) Hypotension: Code(s): I95.9 - Hypotension, unspecified Status: Acute Assessment and Plan: Low blood pressure, perhaps due to atrial fibrillation, but also perhaps due to some autonomic dysfunction. Consider sepsis but doubt related to the ?endocarditis. BCx NGTD. WBC normalized without abx so probably more of a stress response. BP still soft. He does take furosemide 80mg daily at home but this is on hold. Continue Midodrine. Continue to follow. (5) Lactic acidosis: Code(s): E87.20 - Acidosis, unspecified Status: Acute Assessment and Plan: Lactic acid 8.4 on admission felt related to poor clearance and tissue hypoperfusion. Repeat lactic level has normalized. (6) Hyperkalemia: Code(s): E87.5 - Hyperkalemia Status: Resolved Assessment and Plan: Potassium 6.3 on admission. Potassium level better after HD; metabolic acidosis also resolved. Continue to use HD to control potassium level. Follow. (7) Elevated liver enzymes: Code(s): R74.8 - Abnormal levels of other serum enzymes Status: Acute Assessment and Plan: LFTs noted to be mildly elevated. Suspect also related to hypoperfusion and/or congestion. Noted before. Levels trending down. Will follow. (8) End-stage renal disease on hemodialysis: Code(s): N18.6 - End stage renal disease; Z99.2 - Dependence on renal dialysis Status: Acute Assessment and Plan: Stable. HD [id number]. Continue renal diet. Nephrology consulted and appreciate their input. Continue HD per their recommendations. Plan Weakness - Improving. Continue PT/OT. Thrombocytopenia - Plt count dropped to 129K but not uncommon for this patient. Plt count better. LV dysfunction - HALEY showing LVEF 35-40%. Unable to add beta manny, ACEI or Entresto due to HoTN. No Empag due to ESRD Subjective Date/time seen: 07/14/22 15:18 Interval history: 76yo male with ESRD and AFib here for low BP and elevated HR. No problems overnight. Slept off and on. No CP or SOB. Eating okay. Walking in the room. Exam Narrative: AF 97.5 93/70 109 14 100% ra Gen - NARD sitting up at the side of the bed Chest - CTA bilaterally, nml RR. right upper chest tunnelled cath CV - irregularly irregular and tachycardic. Tele showing AFib with improved rat
[2022-07-15] VITALS (32 sets, daily range): BP systolic 81–159; BP diastolic 54–96; PULSE 48–150; RESP 16–20; TEMP 35.6–37; O2SAT 96–100
[2022-07-15 05:14] LABS: Hematocrit 36.4 % (42.0-52.0); Hemoglobin 11.5 g/dL (14.0-18.0); Mean Corpuscular HGB Conc 31.6 g/dl (32-36); Mean Corpuscular Hemoglobin 33.2 pg (26-34); Mean Corpuscular Volume 105.2 fl (80-100); Mean Platelet Volume 11.2 fl (7.4-10.4); Platelet Count Result 149 k/mm3 (150-375); Red Blood Count 3.46 M/mm3 (4.6-6.20); Red Cell Distribution Width 17.4 % (11.5-14.5); White Blood Count 10.2 K/mm3 (4.5-10.0)
[2022-07-15 05:15] LABS: Albumin Level 3.6 g/dL (3.5-5.1); Anion Gap 14 mmol/L (8-16); Blood Urea Nitrogen 37 mg/dL (9-20); Calcium 8.6 mg/dL (8.4-10.2); Carbon Dioxide 24 mmol/L (22-30); Chloride 96 mmol/L (98-107); Estimated CRCL calculation 10 ml/min; Estimated Glomerular Filt Rate 9; Glucose 113 mg/dL (65-110); Phosphorus 5.8 mg/dL (2.5-4.5); Potassium 4.2 mmol/L (3.4-5.0); Sodium 134 mmol/L (137-145)
[2022-07-15] MEDS: APIXABAN 2.5 MG TABLET PO ×2 (08:53→22:00)
[2022-07-15] MEDS: AMIODARONE HCL 200 MG TABLET 400 MG PO ×2 (08:53→18:46)
[2022-07-15] MEDS: DIGOXIN TAB 125 MCG TABLET PO (08:53)
[2022-07-15] MEDS: MIDODRINE HCL 10 MG TABLET PO ×3 (08:53→18:46)
[2022-07-15] MEDS: ATORVASTATIN 40 MG TABLET PO (08:53)
[2022-07-15] MEDS: calcitrioL 0.25 MCG CAPSULE PO (08:53)
--- NOTE | 2022-07-15 09:38 | PM.PNCARD ---
Progress Note: A&P Assessment and Plan (1) Atrial fibrillation with rapid ventricular response: Code(s): I48.91 - Unspecified atrial fibrillation Status: Chronic Assessment and Plan: Previously paroxysmal, now persistent AFib, initially with RVR Underwent HALEY-guided DCCV 07/12 with successful amish of sinus rhythm using 150J of biphasic energy which did restore sinus rhythm. However, patient went back into AFIB RVR overnight At this point we will pursue a rate control strategy. Continue with Amiodarone 400mg BID. Continue with Eliquis. He cannot tolerate beta-blockers due to SBP in the 80s. Remains on Midodrine for low blood pressures. At this point, we have very limited options in terms of management for his atrial fibrillation. Since he continues to have AFIB with RVR with any movement on good dose of Amiodarone, she continue digoxin and amiodarone. Of note, HALEY did show possible vegetation associated with the anterior leaflet of the mitral valve.? This is small but there is a hypermobile structure at the tip. Blood cultures were ordered 07/12 and have remained negative. Clinically, no signs or symptoms of infective endocarditis. In the long-term, his mitral regurgitation is a significant issue. Mitral valve will need to be replaced or repaired. (2) CAD (coronary artery disease): Qualifiers: Coronary Disease-Associated Artery/Lesion type: [place] artery [place] vs. transplanted heart: [place] heart Associated angina: without angina Qualified Code(s): I25.10 - Atherosclerotic heart disease of [place] coronary artery without angina pectoris Code(s): I25.10 - Atherosclerotic heart disease of [place] coronary artery without angina pectoris Status: Acute Assessment and Plan: History of CAD and stent, stable. (3) Mitral regurgitation: Code(s): I34.0 - Nonrheumatic mitral (valve) insufficiency Status: Acute Assessment and Plan: Severe MR. There is lack of closure of the mitral valve resulting in severe mitral regurgitation. In the long-term, his mitral regurgitation is a significant issue. Mitral valve will need to be replaced or repaired. (4) LV dysfunction: Code(s): I51.9 - Heart disease, unspecified Status: Acute Assessment and Plan: HALEY showing LVEF 35-40%. At this time, given his issues with hypotension, he will not be able to tolerate GDMT. Cannot use SGLT-2 inhibitors due to ESRD. Subjective Date/time seen: 07/15/22 09:38 Interval history: Reason for visit: Atrial fibrillation Date of service 07/13/2022: Underwent successful HALEY-guided DCCV yesterday, however, patient went back into AFIB with RVR overnight. Patient states this morning he is feeling well. No chest pain, palpitations, shortness of breath. Date of service 07/14/2022: No acute events overnight. Remains in atrial fibrillation. When he is laying still, he is rate-controlled, however with any movement he goes into RVR. This morning, patient states he had gotten up to walk to the bathroom and was brushing his teeth when tele showed his HR in the 140s-150s. Patient denies chest pain, palpitations, shortness of breath, and states he is otherwise feeling okay. He does not really notice the AFIB. Date of service 07/15/2022: He had a good night. Heart rate controlled generally at rest. No chest pain or shortness of breath at this point. Review of Systems Constitutional: Constitutional: Reports fatigue, Denies fever(s), Reports lethargy and Reports weakness Eyes: Eyes: Reports no additional eye complaints ENT: Denies epistaxis Cardiovascular: Cardiovascular: Denies chest pain, Denies pedal edema, Denies lightheadedness, Denies palpitations, Denies dyspnea and Reports dyspnea on exertion ( mild HOPPER with activity) Respiratory: Respiratory: Denies chest congestion, Denies dyspnea and Reports dyspnea on exertion ( mild HOPPER with activity) Gastrointestinal: Gastrointest
--- NOTE | 2022-07-15 14:06 | P.PNNP_ITS ---
Progress Note: A&P Assessment and Plan (1) End stage renal disease: Code(s): N18.6 - End stage renal disease Status: Chronic Assessment and Plan: * HD due today. * volume status looks okay. Has just a small amount of swelling * his blood pressure is somewhat soft so he will probably always have a little edema. * Potassium is doing well. (2) Severe mitral regurgitation: Code(s): I34.0 - Nonrheumatic mitral (valve) insufficiency Status: Acute Assessment and Plan: * this is a new finding. * He has a vegetation. * Four sets of blood cultures are negative so far * he is getting IV antibiotics just in case. * Endocarditis seems to be less likely per Dr Baldwin. * he will need repair/replacement of the valve. * Because he is a dialysis patient and has a hemo cath plus also has had several procedures such as peritoneal catheter, it would most likely be prudent to continue vancomycin for the 6 weeks. (3) Hyperkalemia: Code(s): E87.5 - Hyperkalemia Status: Resolved Assessment and Plan: * resolved * treated with medical management and dialysis * due to dietary indiscretion(?) * K 4.2 today. (4) Atrial fibrillation with rapid ventricular response: Code(s): I48.91 - Unspecified atrial fibrillation Status: Chronic Assessment and Plan: * noted on admission with RVR * presumed etiology of weakness * s/p HALEY with cardioversion on 07/12/22 * Now back in AFib again. * on anticoagulation (on Eliquis) * On amiodarone. * Cardiology following * Digoxin on board (5) Hypotension: Code(s): I95.9 - Hypotension, unspecified Status: Acute Assessment and Plan: * somewhat of a new issue * blood pressure ranging from 90 to 120 (6) Diabetes: Code(s): E11.9 - Type 2 diabetes mellitus without complications Status: Chronic Assessment and Plan: On Accu-Cheks and sliding-scale insulin per hospitalist. Subjective Date/time seen: 07/15/22 14:06 Interval history: the patient is lying flat in bed comfortably. Atrial fibrillation continues. Heart rate is a little bit lower now on the Digoxin Exam Narrative: General: elderly male in NAD Heart: irregular rhythm, heart rate around 90. Lungs: Clear to auscultation Abdomen: soft, nontender, nondistended, positive bowel sounds Extremities: no cyanosis or clubbing; no edema Skin: no rash Objective Data Vital Signs Vital Signs: Vital Signs - 24 hr 07/14/22 16:00 07/14/22 16:00 07/14/22 16:00 Temperature 36.2 C L Pulse Rate 99 97 Respiratory Rate 16 Blood Pressure 94/77 L Pulse Oximetry 100 Oxygen Delivery Room Air 07/14/22 18:00 07/14/22 20:27 07/14/22 20:27 Temperature 37.1 C Pulse Rate 106 H 106 H 106 H Respiratory Rate 20 20 Blood Pressure 110/71 83/65 L Pulse Oximetry 100 100 Oxygen Delivery 07/14/22 20:00 07/14/22 20:00 07/14/22 21:54 Temperature Pulse Rate 105 H 105 H 85 Respiratory Rate 20 Blood Pressure Pulse Oximetry 100 Oxygen Delivery Room Air 07/15/22 00:05 07/15/22 00:00 07/15/22 00:00 Temperature 37.0 C
--- NOTE | 2022-07-15 14:06 | PM.PNNEP ---
Progress Note: A&P Assessment and Plan (1) End stage renal disease: Code(s): N18.6 - End stage renal disease Status: Chronic Assessment and Plan: HD due today. volume status looks okay. Has just a small amount of swelling his blood pressure is somewhat soft so he will probably always have a little edema. Potassium is doing well. (2) Severe mitral regurgitation: Code(s): I34.0 - Nonrheumatic mitral (valve) insufficiency Status: Acute Assessment and Plan: this is a new finding. He has a vegetation. Four sets of blood cultures are negative so far he is getting IV antibiotics just in case. Endocarditis seems to be less likely per Dr Baldwin. he will need repair/replacement of the valve. Because he is a dialysis patient and has a hemo cath plus also has had several procedures such as peritoneal catheter, it would most likely be prudent to continue vancomycin for the 6 weeks. (3) Hyperkalemia: Code(s): E87.5 - Hyperkalemia Status: Resolved Assessment and Plan: resolved treated with medical management and dialysis due to dietary indiscretion(?) K 4.2 today. (4) Atrial fibrillation with rapid ventricular response: Code(s): I48.91 - Unspecified atrial fibrillation Status: Chronic Assessment and Plan: noted on admission with RVR presumed etiology of weakness s/p HALEY with cardioversion on 07/12/22 Now back in AFib again. on anticoagulation (on Eliquis) On amiodarone. Cardiology following Digoxin on board (5) Hypotension: Code(s): I95.9 - Hypotension, unspecified Status: Acute Assessment and Plan: somewhat of a new issue blood pressure ranging from 90 to 120 (6) Diabetes: Code(s): E11.9 - Type 2 diabetes mellitus without complications Status: Chronic Assessment and Plan: On Accu-Cheks and sliding-scale insulin per hospitalist. Subjective Date/time seen: 07/15/22 14:06 Interval history: the patient is lying flat in bed comfortably. Atrial fibrillation continues. Heart rate is a little bit lower now on the Digoxin Exam Narrative: General: elderly male in NAD Heart: irregular rhythm, heart rate around 90. Lungs: Clear to auscultation Abdomen: soft, nontender, nondistended, positive bowel sounds Extremities: no cyanosis or clubbing; no edema Skin: no rash Objective Data Vital Signs Vital Signs: Vital Signs - 24 hr 07/14/22 16:00 07/14/22 16:00 07/14/22 16:00 Temperature 36.2 C L Pulse Rate 99 97 Respiratory Rate 16 Blood Pressure 94/77 L Pulse Oximetry 100 Oxygen Delivery Room Air 07/14/22 18:00 07/14/22 20:27 07/14/22 20:27 Temperature 37.1 C Pulse Rate 106 H 106 H 106 H Respiratory Rate 20 20 Blood Pressure 110/71 83/65 L Pulse Oximetry 100 100 Oxygen Delivery 07/14/22 20:00 07/14/22 20:00 07/14/22 21:54 Temperature Pulse Rate 105 H 105 H 85 Respiratory Rate 20 Blood Pressure Pulse Oximetry 100 Oxygen Delivery Room Air 07/15/22 00:05 07/15/22 00:00 07/15/22 00:00 Temperature 37.0 C Pulse Rate 87 81 81 Respiratory Rate 20 20 Blood Pressure 81/54 L Pulse Oximetry 100 100 Oxygen Delivery Room Air 07/15/22 02:00 07/15/22 04:00 07/15/22 04:00 Temperature Pulse Rate 94 83 83 Respiratory Rate 20 Blood Pressure Pulse Oximetry 100 Oxygen Delivery Room Air 07/15/22 04:40 07/15/22 05:41 07/15/22 08:00 Temperature 36.9 C 36.2 C L Pulse Rate 84 96 85 Respiratory Rate 20 18 Blood Pressure 110/79 98/78 L Pulse Oximetry 100 98 Oxygen Delivery 07/15/22 08:53 07/15/22 08:53 07/15/22 12:00 Temperature 36.3 C L Pulse Rate 102 H 102 H 48 L Respiratory Rate 16 Blood Pressure 122/93 H Pulse Oximetry 96 Oxygen Delivery Intake/Output Intake/Output: Intake & Output 07/12/22 07/13/22 07/14/22 07/15/22 2
[2022-07-15] MEDS: SODIUM CHLORIDE 0.9% IV 1,000 ML 999 ML IV CONT (17:15)
--- NOTE | 2022-07-15 18:14 | PM.IMPN ---
Progress Note: A&P Assessment and Plan (1) Endocarditis: Code(s): I38 - Endocarditis, valve unspecified Status: Acute Assessment and Plan: Patient underwent HALEY with cardioversion 07/12. HALEY showing severe MR with possible small, hypermobile vegetation at the tip of the anterior leaflet of the mitral valve.? BCx (07/09) drawn on admission are negative. No unexplained fevers or chills. BCx (07/12) NGTD. Despite the vegetation noted, he does not meet the Joel criteria with only one major and one minor criteria. Consider marantic vs culture-negative endocarditis. Vanco added for emperic coverage for culture negative endocarditis. Would consider treatment for 6 weeks and re-image. (2) Severe mitral regurgitation: Code(s): I34.0 - Nonrheumatic mitral (valve) insufficiency Status: Acute Assessment and Plan: As above. HALEY showing severe MR. Will need to have this further evaluated and treated. (3) Atrial fibrillation with rapid ventricular response: Code(s): I48.91 - Unspecified atrial fibrillation Status: Chronic Assessment and Plan: The patient sent to the ED from HD due to HoTN and tachycardia. Found to be in AFib. Previously paroxysmal but now persistent AFib with RVR. He had improvement after IV Lopressor 5mg x 1. Metoprolol dose was reduced recently due to hypotension; now off metoprolol altogether. Amiodarone started. He remains on Eliquis. He had successful cardioversion on 07/12 but went back into AFib that evening. Digoxin added and HR better controlled. Appreciate Cardiology input. Continue to monitor on tele. Home when okay with Cardiology. Will need to see EP. (4) Hypotension: Code(s): I95.9 - Hypotension, unspecified Status: Acute Assessment and Plan: Low blood pressure, perhaps due to atrial fibrillation, but also perhaps due to some autonomic dysfunction. Consider sepsis but doubt related to the ?endocarditis. BCx NGTD. WBC normalized without abx so probably more of a stress response. BP more stable. He does take furosemide 80mg daily at home but this is on hold. Continue Midodrine. Continue to follow. (5) Lactic acidosis: Code(s): E87.20 - Acidosis, unspecified Status: Acute Assessment and Plan: Lactic acid 8.4 on admission felt related to poor clearance and tissue hypoperfusion. Repeat lactic level has normalized. (6) Hyperkalemia: Code(s): E87.5 - Hyperkalemia Status: Resolved Assessment and Plan: Potassium 6.3 on admission. Potassium level better after HD; metabolic acidosis also resolved. Continue to use HD to control potassium level. Follow. (7) Elevated liver enzymes: Code(s): R74.8 - Abnormal levels of other serum enzymes Status: Acute Assessment and Plan: LFTs noted to be mildly elevated. Suspect also related to hypoperfusion and/or congestion. Noted before. Levels trending down. Will follow. (8) End-stage renal disease on hemodialysis: Code(s): N18.6 - End stage renal disease; Z99.2 - Dependence on renal dialysis Status: Acute Assessment and Plan: Stable. HD MoWeFr. Currently undergoing HD. Continue renal diet. Nephrology consulted and appreciate their input. Continue HD per their recommendations. Plan Weakness - Improving. Continue PT/OT. Thrombocytopenia - Plt count dropped to 129K but not uncommon for this patient. Plt count better. LV dysfunction - HALEY showing LVEF 35-40%. Unable to add beta manny, ACEI or Entresto due to HoTN. No Empag due to ESRD Subjective Date/time seen: 07/15/22 18:14 Interval history: 76yo male with ESRD and AFib here for low BP and elevated HR. No CP or SOB. Feels better overall. Requesting discharge. Walking in the room. Exam Narrative: AF 97.2 109/84 87 16 96% ra Gen - NARD lying semi-recumbent in bed undergoing HD Chest - clear anteriorly. right upper chest tunnelled cath accessed
[2022-07-15 20:43] LABS: Vancomycin Random 15.3 ug/mL (10-20)
[2022-07-16] VITALS (11 sets, daily range): BP systolic 96–117; BP diastolic 69–93; PULSE 75–113; RESP 18–22; TEMP 36.4–36.6; O2SAT 95–100
[2022-07-16 05:11] LABS: Digoxin < 0.5 ng/mL (0.8-2.0)
--- NOTE | 2022-07-16 07:16 | PM.PNNEP ---
Progress Note: A&P Assessment and Plan (1) End stage renal disease: Code(s): N18.6 - End stage renal disease Status: Chronic Assessment and Plan: HD went well yesterday. volume status looks okay. Has just a small amount of swelling his blood pressure is somewhat soft so he will probably always have a little edema. Will order dialysis for tomorrow in case he is still here. (2) Severe mitral regurgitation: Code(s): I34.0 - Nonrheumatic mitral (valve) insufficiency Status: Acute Assessment and Plan: this is a new finding. He has a vegetation. Four sets of blood cultures are negative so far He is on vancomycin. Endocarditis seems to be less likely per Dr Baldwin. he will need repair/replacement of the valve. Because he is a dialysis patient and has a hemo cath plus also has had several procedures such as peritoneal catheter, it would most likely be prudent to continue vancomycin for the 6 weeks. (3) Hyperkalemia: Code(s): E87.5 - Hyperkalemia Status: Resolved Assessment and Plan: Resolved. (4) Atrial fibrillation with rapid ventricular response: Code(s): I48.91 - Unspecified atrial fibrillation Status: Chronic Assessment and Plan: noted on admission with RVR presumed etiology of weakness s/p HALEY with cardioversion on 07/12/22. A few hours later he went back into AFib again. on anticoagulation (on Eliquis) On amiodarone. Digoxin on board Heart rate seems to be responding. (5) Hypotension: Code(s): I95.9 - Hypotension, unspecified Status: Acute Assessment and Plan: somewhat of a new issue blood pressure ranging from 90 to 120 (6) Diabetes: Code(s): E11.9 - Type 2 diabetes mellitus without complications Status: Chronic Assessment and Plan: On Accu-Cheks and sliding-scale insulin per hospitalist. Subjective Date/time seen: 07/16/22 07:16 Interval history: 07/15 the patient is lying flat in bed comfortably. Atrial fibrillation continues. Heart rate is a little bit lower now on the Digoxin 07/16 The patient is resting comfortably in bed. He has no shortness of breath even though lying flat. He was up and around yesterday. Current heart rate is in the low 80s. He is eager for discharge Exam Narrative: General: elderly male in NAD Heart: irregular rhythm, heart rate around 90. Lungs: Clear Abdomen: soft, nontender, nondistended, positive bowel sounds Extremities: no cyanosis or clubbing; no edema Skin: no rash or subQ nodules Objective Data Vital Signs Vital Signs: Vital Signs - 24 hr 07/15/22 08:00 07/15/22 08:53 07/15/22 08:53 Temperature 36.2 C L Pulse Rate 85 102 H 102 H Respiratory Rate 18 Blood Pressure 98/78 L Pulse Oximetry 98 Oxygen Delivery 07/15/22 12:00 07/15/22 14:30 07/15/22 14:20 Temperature 36.3 C L 36.3 C L Pulse Rate 48 L 103 H 93 Respiratory Rate 16 16 Blood Pressure 122/93 H 115/84 159/81 H Pulse Oximetry 96 Oxygen Delivery 07/15/22 14:50 07/15/22 15:10 07/15/22 15:30 Temperature Pulse Rate 81 91 83 Respiratory Rate Blood Pressure 95/90 L 124/81 110/82 Pulse Oximetry Oxygen Delivery 07/15/22 08:00 07/15/22 10:00 07/15/22 12:00 Temperature Pulse Rate 102 H 98 95 Respiratory Rate Blood Pressure Pulse Oximetry Oxygen Delivery 07/15/22 14:00 07/15/22 08:00 07/15/22 12:00 Temperature Pulse Rate 92 Respiratory Rate Blood Pressure Pulse Oximetry Oxygen Delivery Room Air Room Air 07/15/22 15:50 07/15/22 16:10 07/15/22 16:30 Temperature Pulse Rate 77 93 83 Respiratory Rate Blood Pressure 101/77 104/79 109/83 Pulse Oximetry Oxygen Delivery 07/15/22 16:00 07/15/22 16:00 07/15/22 16:50 Temperature Pulse Rate 87 100 Respiratory Rate Blood Pressure 119/89 Pulse Oximetry Oxyge
[2022-07-16] MEDS: MIDODRINE HCL 10 MG TABLET PO ×2 (08:39→13:36)
[2022-07-16] MEDS: APIXABAN 2.5 MG TABLET PO (08:40)
[2022-07-16] MEDS: calcitrioL 0.25 MCG CAPSULE PO (08:40)
[2022-07-16] MEDS: ATORVASTATIN 40 MG TABLET PO (08:40)
[2022-07-16] MEDS: DIGOXIN TAB 125 MCG TABLET PO (08:40)
[2022-07-16] MEDS: AMIODARONE HCL 200 MG TABLET 400 MG PO (08:41)
--- NOTE | 2022-07-16 09:08 | PM.DS ---
DS: Admitting Diagnosis Discharge Date July 16, 2022 Admitting Diagnosis Weakness DS: Discharge Diagnosis Discharge Diagnosis (1) Endocarditis: Code(s): I38 - Endocarditis, valve unspecified Status: Acute Assessment and Plan: Patient underwent HALEY with cardioversion 07/12. HALEY showing severe MR with possible small, hypermobile vegetation at the tip of the anterior leaflet of the mitral valve.? BCx (07/09) drawn on admission are negative. No unexplained fevers or chills. BCx (07/12) NGTD. Despite the vegetation noted, he does not meet the Joel criteria with only one major and one minor criteria. Consider marantic vs culture-negative endocarditis. Vanco added for emperic coverage for culture negative endocarditis. Would consider treatment for 6 weeks and re-image. (2) Severe mitral regurgitation: Code(s): I34.0 - Nonrheumatic mitral (valve) insufficiency Status: Acute Assessment and Plan: As above. HALEY showing severe MR. Will need to have this further evaluated and treated. (3) Atrial fibrillation with rapid ventricular response: Code(s): I48.91 - Unspecified atrial fibrillation Status: Chronic Assessment and Plan: The patient sent to the ED from HD due to HoTN and tachycardia. Found to be in AFib. Previously paroxysmal but now persistent AFib with RVR. He had improvement after IV Lopressor 5mg x 1. Metoprolol dose was reduced recently due to hypotension; now off metoprolol altogether. Amiodarone started. He remains on Eliquis. He had successful cardioversion on 07/12 but went back into AFib that evening. Digoxin added and HR better controlled. Appreciate Cardiology input. Continue to monitor on tele. Home when okay with Cardiology. Will need to see EP. (4) Hypotension: Code(s): I95.9 - Hypotension, unspecified Status: Acute Assessment and Plan: Low blood pressure, perhaps due to atrial fibrillation, but also perhaps due to some autonomic dysfunction. Consider sepsis but doubt related to the ?endocarditis. BCx NGTD. WBC normalized without abx so probably more of a stress response. BP more stable. He does take furosemide 80mg daily at home but this is on hold. Continue Midodrine. Continue to follow. (5) Lactic acidosis: Code(s): E87.20 - Acidosis, unspecified Status: Acute Assessment and Plan: Lactic acid 8.4 on admission felt related to poor clearance and tissue hypoperfusion. Repeat lactic level has normalized. (6) Hyperkalemia: Code(s): E87.5 - Hyperkalemia Status: Resolved Assessment and Plan: Potassium 6.3 on admission. Potassium level better after HD; metabolic acidosis also resolved. Continue to use HD to control potassium level. Follow. (7) Elevated liver enzymes: Code(s): R74.8 - Abnormal levels of other serum enzymes Status: Acute Assessment and Plan: LFTs noted to be mildly elevated. Suspect also related to hypoperfusion and/or congestion. Noted before. Levels trending down. Will follow. (8) End-stage renal disease on hemodialysis: Code(s): N18.6 - End stage renal disease; Z99.2 - Dependence on renal dialysis Status: Acute Assessment and Plan: Stable. HD MoWeFr. Currently undergoing HD. Continue renal diet. Nephrology consulted and appreciate their input. Continue HD per their recommendations. Plan Weakness - Improving. Continue PT/OT. Thrombocytopenia - Plt count dropped to 129K but not uncommon for this patient. Plt count better. LV dysfunction - HALEY showing LVEF 35-40%. Unable to add beta manny, ACEI or Entresto due to HoTN. No Empag due to ESRD DS: Summary Hospital Course Hospital Course: 76-year-old male with end-stage renal disease, paroxysmal atrial fibrillation, coronary artery disease status post drug-eluting stent to the LAD in May 2018, hypertension, hyperlipidemia, mitral valve regurgitation, congestive heart failure,
--- NOTE | 2022-07-16 09:35 | PM.PNCARD ---
Progress Note: A&P Assessment and Plan (1) Atrial fibrillation with rapid ventricular response: Code(s): I48.91 - Unspecified atrial fibrillation Status: Chronic Assessment and Plan: Previously paroxysmal, now persistent AFib, initially with RVR Underwent HALEY-guided DCCV 07/12 with successful latter-day of sinus rhythm using 150J of biphasic energy which did restore sinus rhythm. However, patient went back into AFIB RVR overnight At this point we will pursue a rate control strategy. Continue with Amiodarone 400mg BID. Continue with Eliquis. He cannot tolerate beta-blockers due to SBP in the 80s. Remains on Midodrine for low blood pressures. At this point, we have very limited options in terms of management for his atrial fibrillation. Since he continued to have AFIB with RVR with any movement on good dose of Amiodarone, we started Digoxin in addition to his Amio Of note, HALEY did show possible vegetation associated with the anterior leaflet of the mitral valve.? This is small but there is a hypermobile structure at the tip. Blood cultures were ordered 07/12 and have remained negative. Clinically, no signs or symptoms of infective endocarditis. In the long-term, his mitral regurgitation is a significant issue. Mitral valve will need to be replaced or repaired. HR is mostly rate-controlled now on Amiodarone and Digoxin. Okay to discharge from a cardiac standpoint. Patient will need long-term outpatient Cardiology follow-up. (2) CAD (coronary artery disease): Qualifiers: Coronary Disease-Associated Artery/Lesion type: [place] artery [place] vs. transplanted heart: [place] heart Associated angina: without angina Qualified Code(s): I25.10 - Atherosclerotic heart disease of [place] coronary artery without angina pectoris Code(s): I25.10 - Atherosclerotic heart disease of [place] coronary artery without angina pectoris Status: Acute Assessment and Plan: History of CAD and stent, stable. (3) Mitral regurgitation: Code(s): I34.0 - Nonrheumatic mitral (valve) insufficiency Status: Acute Assessment and Plan: Severe MR. There is lack of closure of the mitral valve resulting in severe mitral regurgitation. In the long-term, his mitral regurgitation is a significant issue. Mitral valve will need to be replaced or repaired. (4) LV dysfunction: Code(s): I51.9 - Heart disease, unspecified Status: Acute Assessment and Plan: HALEY showing LVEF 35-40%. At this time, given his issues with hypotension, he will not be able to tolerate GDMT. Cannot use SGLT-2 inhibitors due to ESRD. Subjective Date/time seen: 07/16/22 09:35 Interval history: Reason for visit: Atrial fibrillation Date of service 07/13/2022: Underwent successful HALEY-guided DCCV yesterday, however, patient went back into AFIB with RVR overnight. Patient states this morning he is feeling well. No chest pain, palpitations, shortness of breath. Date of service 07/14/2022: No acute events overnight. Remains in atrial fibrillation. When he is laying still, he is rate-controlled, however with any movement he goes into RVR. This morning, patient states he had gotten up to walk to the bathroom and was brushing his teeth when tele showed his HR in the 140s-150s. Patient denies chest pain, palpitations, shortness of breath, and states he is otherwise feeling okay. He does not really notice the AFIB. Date of service 07/15/2022: He had a good night. Heart rate controlled generally at rest. No chest pain or shortness of breath at this point. Date of service 07/16/2022: No acute events overnight. Feeling well. No cardiac symptoms. Exam Const: General: cooperative, healthy appearing and comfortable Orientation/consciousness: oriented to person and patient oriented x3 HENMT: Mouth: Yes moist mucous membranes Eyes: General: appearance normal, both eyes and all related structures Sclera: sclerae normal
== END 2022-07-16 14:48 | disposition home or self-care (01) | DRG 306 ==
LOC: ANHED 09:34 → ANHIMU 13:18
PROVIDERS: Internal Medicine Cardiovascular Disease; Internal Medicine Nephrology; Physician Assistant; Admitting Provider Internal Medicine; Emergency Provider Emergency Medicine; PCP Family Medicine; Visit Provider Student in an Organized Health Care Education/Training Program
PROC: 5A2204Z Restoration of Cardiac Rhythm, Single (ICD-10-PCS; CPT 93312; principal; 2022-07-12 08:30)
PROC: 5A2204Z Restoration of Cardiac Rhythm, Single (ICD-10-PCS; 2022-07-12 08:30)
DX: I38 Endocarditis, valve unspecified (principal); N18.6 End stage renal disease; E87.20 Acidosis, unspecified; I13.2 Hypertensive heart and chronic kidney disease with heart failure and with stage 5 chronic kidney disease, or end stage renal disease; I48.19 Other persistent atrial fibrillation; I34.0 Nonrheumatic mitral (valve) insufficiency; E11.22 Type 2 diabetes mellitus with diabetic chronic kidney disease; Z20.822 Contact with and (suspected) exposure to COVID-19; E87.5 Hyperkalemia; I95.9 Hypotension, unspecified; R74.8 Abnormal levels of other serum enzymes; D69.6 Thrombocytopenia, unspecified; I25.10 Atherosclerotic heart disease of native coronary artery without angina pectoris; D64.9 Anemia, unspecified; M19.90 Unspecified osteoarthritis, unspecified site; M48.02 Spinal stenosis, cervical region; E11.42 Type 2 diabetes mellitus with diabetic polyneuropathy; E03.9 Hypothyroidism, unspecified; N25.0 Renal osteodystrophy; Z87.442 Personal history of urinary calculi; I25.2 Old myocardial infarction; Z99.2 Dependence on renal dialysis; Z95.5 Presence of coronary angioplasty implant and graft; Z87.11 Personal history of peptic ulcer disease; Z85.528 Personal history of other malignant neoplasm of kidney; Z90.49 Acquired absence of other specified parts of digestive tract; Z87.891 Personal history of nicotine dependence
CPT/HCPCS: 36415; 36600; 71046; 80048; 80053; 80069; 80076; 80162; 80202; 82375; 82550; 82607; 82746; 82805; 83050; 83605; 83735; 84100; 85025; 85027; 86140; 86706; 87040; 87340; 87637; 92960; 93005; 93312; 93320; 93325; 96374; 97161; 97165; 99285; A9270; G0257; G0378; J1644; J2250; J2310; J3010; J3370; J7030; J7040; P9047; Q5105

== ENCOUNTER 2022-07-29 11:18 | Inpatient (IN) | payer MEDICARE, SELFPAY ==
[2022-07-29] VITALS (21 sets, daily range): BP systolic 104–128; BP diastolic 60–79; PULSE 33–80; RESP 11–27; TEMP 36.2–36.8; O2SAT 92–100; BMI 29.9
--- NOTE | ~2022-07-29 | US_ITS ---
EXAMINATION: US abdomen limited DATE: 07/30/2022 09:46 INDICATION: Transaminitis TECHNIQUE: Multiple grayscale and Doppler ultrasound images of the abdomen were obtained. COMPARISON: Right upper quadrant abdominal ultrasound dated 03/29/[address] abdomen and pelvis dated 03/27/2022 FINDINGS: The pancreatic head and body are normal in appearance. The pancreatic tail is not visualized. Liver has normal echogenicity. There appears be subtle finding liver surface nodularity raising suspicion f or cirrhosis. No liver lesion identified. No intrahepatic biliary duct dilation suspected. Portal jah ous flow was seen in the hepatopetal, normal direction and has normal Doppler waveform. Small perihep atic ascites. The gallbladder is normal in appearance. There are few subtle tiny echogenic foci of wi thin the gallbladder lumen likely related to gallbladder sludge. No shadowing cholelithiasis. The com mon bile duct measures 6 mm, which is normal. Sonographic Brennan sign was reported as negative by the brake drum molder. Right pleural effusion. IMPRESSION: 1. Possible cirrhosis with suggestion of subtle liver surface nodularity. 2. Small amount of perihepatic ascites. 3. Right pleural effusion. 4. Small amount of sludge within the otherwise normal gallbladder with no wall thickening or cholelit hiasis. Reviewed, dictated and finalized at location A. RANCE ACCOUNT SPECIALIST IMPRESSION: 1. Possible cirrhosis with suggestion of subtle liver surface nodularity. 2. Small amount of perihepatic ascites. 3. Right pleural effusion. 4. Small amount of sludge within the otherwise normal gallbladder with no wall thickening or cholelithiasis.
--- NOTE | ~2022-07-29 | XR_ITS ---
EXAMINATION: XR chest 1V portable DATE: 08/03/2022 11:32 INDICATION: COVID pneumonia TECHNIQUE: frontal view of the chest was obtained. COMPARISON: Chest radiograph dated 07/29/2022 FINDINGS: Large-bore dual-lumen right internal jugular likely tunneled central venous dialysis catheter with di stal tip near the superior cavoatrial junction. Gradient of hazy airspace opacities in the right lowe r lung zone and a focal mild opacities in the left lower lung zone. No pneumothorax. Arch size is nor mal. IMPRESSION: 1. Mild opacities at the bilateral lower lung zones which could represent atelectasis or pneumonia. 2. Likely small posterior layering right pleural effusion. Reviewed, dictated and finalized at location A. GATHERER IMPRESSION: 1. Mild opacities at the bilateral lower lung zones which could represent atele ctasis or pneumonia. 2. Likely small posterior layering right pleural effusion.
--- NOTE | ~2022-07-29 | MR_ITS ---
EXAMINATION: MR brain/brain stem wo con DATE: 08/06/2022 12:27 INDICATION: Altered mental status. TECHNIQUE: Magnetic resonance imaging (MRI) of the brain and brainstem was performed without intraven ous contrast. COMPARISON: Head CT 06/26/22 FINDINGS: There is no intracranial hemorrhage, acute infarction, or abnormal intracranial mass lesion . There are scattered areas of nonspecific increased T2-weighted signal intensity in the cerebral whi te matter, cerebellar white matter, and ena. The ventricles are normal in size. There is mild mucosa l thickening in the paranasal sinuses. The orbits are normal. The mastoid air cells are normal. IMPRESSION: 1. Moderate nonspecific cerebral and cerebellar white matter disease and pontine disease, which likel y represents chronic small vessel ischemic disease. Reviewed, dictated and finalized at location A. E MECHANIC IMPRESSION: 1. Moderate nonspecific cerebral and cerebellar white matter disease and pontin e disease, which likely represents chronic small vessel ischemic disease.
--- NOTE | ~2022-07-29 | XR_ITS ---
EXAMINATION: XR chest 1V portable DATE: 07/29/2022 11:59 INDICATION: Shortness of breath. Cough. TECHNIQUE: A single frontal view of the chest was obtained. COMPARISON: Chest 2 views 07/09/2022, chest CT 03/27/2022 FINDINGS: There are airspace opacities at right lung base. Isaac B-lines are noted, consistent with mild pulmonary edema. No pleural effusion or pneumothorax. Cardiomegaly is noted. A right internal ju gular central venous catheter is seen with tip at the superior cavoatrial junction. IMPRESSION: 1. Mild pulmonary edema. 2. Airspace opacities at right lung base, consistent with atelectasis versus pneumonia. 3. Cardiomegaly. Reviewed, dictated and finalized at location A. HING MACHINE OPERATING ENGINEER IMPRESSION: 1. Mild pulmonary edema. 2. Airspace opacities at right lung base, consistent with atelectasis versus pn eumonia. 3. Cardiomegaly.
--- NOTE | ~2022-07-29 | XR_ITS ---
Clinical Indication: Shortness of breath AP and lateral views of the chest: Comparison: 08/03/2022 Findings: Right-sided central venous line is unchanged. The lungs are clear, without evidence of foca l consolidation or pleural effusion. Cardiomediastinal silhouette is within normal limits. Bones and soft tissues are unremarkable. Impression: Clear lungs. Stable support line. Reviewed, dictated and finalized at location M. GANG SUPERVISOR Impression: Clear lungs. Stable support line.
--- NOTE | 2022-07-29 11:43 | ECG_ITS ---
Measurements Intervals [place] Rate: 42 P: NM: 0 QRS: -59 QRSD: 117 T: 139 QT: 551 QTc: 464 Interpretive Statements ATRIAL FIBRILLATION WITH SLOW VENTRICULAR RESPONSE INCOMPLETE LEFT BUNDLE BRANCH BLOCK ABNORMAL ECG COMPARED TO ECG 07/14/2022 08:47:40 NO SIGNIFICANT CHANGES Electronically Signed On 07-29-2022 15:13:09 ULTRASOUND MANAGER by Efren Brooks M.D.
[2022-07-29 12:43] LABS: Basophils Absolute Auto 0.1 K/mm3 (0.0-0.1); Basophils Percent Auto 0.6 % (0.2-1.2); Eosinophils Percent Auto 0.1 % (0-4.4); Hematocrit 38.6 % (42.0-52.0); Hemoglobin 12.2 g/dL (14.0-18.0); Immature Granulocyte Absolute 0.19 K/mm3 (0.00-0.031); Immature Granulocyte Percent A 1.8 % (0-0.5); Immature Platelet Fraction Pct 8.3 % (0.9-11.2); Lymphocytes Absolute Auto 1.03 K/mm3 (0.9-3.2); Lymphocytes Percent Auto 9.5 % (18.3-44.2); Mean Corpuscular HGB Conc 31.6 g/dl (32-36); Mean Corpuscular Hemoglobin 33.9 pg (26-34); Mean Corpuscular Volume 107.2 fl (80-100); Mean Platelet Volume 11.1 fl (7.4-10.4); Monocytes Absolute Auto 0.7 K/mm3 (0.1-0.6); Monocytes Percent Auto 6.4 % (2.6-8.5); Neutrophils Absolute Auto 8.8 K/mm3 (1.3-6.7); Neutrophils Percent Auto 81.6 % (45.5-73.1); Platelet Count Result 146 k/mm3 (150-375); Red Cell Distribution Width 18.7 % (11.5-14.5); White Blood Count 10.8 K/mm3 (4.5-10.0)
[2022-07-29 12:51] LABS: Alanine Aminotransferase 76 U/L (6-50); Albumin Level 3.9 g/dL (3.5-5.1); Alkaline Phosphatase 86 U/L (38-126); Anion Gap 12 mmol/L (8-16); Aspartate Amino Transferase 126 U/L (17-59); Bilirubin,Total 2.3 mg/dL (0.2-1.3); Blood Urea Nitrogen 20 mg/dL (9-20); Calcium 8.3 mg/dL (8.4-10.2); Carbon Dioxide 24 mmol/L (22-30); Chloride 97 mmol/L (98-107); Estimated Glomerular Filt Rate 17; Glucose 72 mg/dL (65-110); Potassium 3.7 mmol/L (3.4-5.0); Sodium 133 mmol/L (137-145)
[2022-07-29] MEDS: ALBUTEROL SULFATE NEB 2.5 MG/3 ML INH 5 MG INHALATION (12:54)
[2022-07-29 12:59] LABS: INR 2.8; Partial Thromboplastin Time 60.1 SECONDS (22.3-36.8); Prothrombin Time 28.4 Seconds (11.1-14.7)
[2022-07-29 13:04] LABS: NT Pro B Type Natriuretic Pept > 35000 pg/mL (5-100)
[2022-07-29 13:07] LABS: Anisocytosis 1+ (NORMAL); Burr Cells 1+ (NORMAL); Ovalocytes 1+ (NORMAL); Schistocytes None Seen (NORMAL)
--- NOTE | 2022-07-29 13:40 | ED.ARRPALP ---
HPI - Arrhythmia/Palpitations General Chief Complaint: Arrhythmia/Palpitations Stated Complaint: LOW HR AT DIALYSIS Time Seen by Provider: 07/29/22 11:59 History of Present Illness HPI narrative: Patient is a 76-year-old male who presents ER with a low heart rate. Patient has history of mitral regurgitation as well as a possible vegetation that he is receiving treatment for. Patient recently had paroxysmal A. fib and underwent cardioversion but then went back into A. fib and they now feel he is going to be in chronic A. fib. His metoprolol was discontinued and he was started on amiodarone and digoxin. Patient reports after his discharge he began his metoprolol again after speaking with his copy chief. Patient has no chest pain or chest pressure but reports over the last 2 days he has had extreme fatigue and has a hard time walking due to this. He has had no syncope. Patient also reports new productive cough over the last 2 days. Related Data Home Medications Medication Instructions Recorded Confirmed calcitriol 0.25 mcg capsule 0.25 mcg PO DAILY 11/12/21 07/29/22 atorvastatin 40 mg tablet 40 mg PO QHS 03/27/22 07/29/22 furosemide 80 mg tablet 80 mg PO DAILY 03/27/22 07/29/22 metoprolol succinate 25 mg 25 mg PO DAILY 03/27/22 07/29/22 tablet,extended release 24 hr amiodarone 200 mg tablet (Pacerone) 200 mg PO BID 07/29/22 07/29/22 Allergies Allergy/AdvReac Type Severity Reaction Status Date / Time No Known Allergies Allergy Unknown Verified 06/26/22 17:27 Review of Systems Review of Systems: All systems reviewed & are unremarkable except as noted in HPI and below Constitutional: Constitutional: Denies chills, Reports fatigue and Denies fever(s) Cardiovascular: Cardiovascular: Denies chest pain, Denies rapid heart rate, Denies radiating jaw, neck or arm pain and Reports slow heart rate Respiratory: Respiratory: Denies chest congestion, Reports cough and Reports dyspnea Gastrointestinal: Gastrointestinal: Denies abdominal pain and Denies vomiting Musculoskeletal: Musculoskeletal: Denies back pain and Denies myalgias [facility] Past Medical History Medical History Anemia of chronic disease Arthritis Cataracts, bilateral Maturing Cervical spinal stenosis Coronary artery disease History of non STEMI in May 2018 status post drug-eluting stent to the LAD. 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 terminal operator anticoagulation Diabetic peripheral neuropathy Diverticular hemorrhage Diverticulitis End-stage renal disease on hemodialysis Erythropoietin deficiency anemia Heart failure with preserved ejection fraction Echocardiogram in June 2019 showed a severely enlarged left atrial chamber, normal left ventricular size with moderate concentric left ventricular hypertrophy, left ventricular function is at the lower end of normal with an estimated ejection fraction 50-55% (although calculated at 63%), no wall motion abnormalities, moderate aortic valve calcification with no significant stenosis, moderate to moderately severe eccentric mitral valve regurgitation, mild tricuspid valve regurgitation, estimated pulmonary arterial systolic pressure of 32 mmHg, dilated inferior vena cava with <50% collapse upon inspiration consistent with elevated right atrial pressure, 10 mmHg., transesophageal echocardiogram September 2019 demonstrated moderate mitral valve regurgitation with stable EF Hypercholesteremia Hypertension Hypothyroidism Kidney stones (~2008) Mitral regurgitation Paroxysmal atrial fibrillation Status post cardioversion in October 2019 and February 2020. 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 Hemoglobin A1c 5.7 11/13/2020 Surgical History Surgical History History of appendectomy 1974 His
[2022-07-29 14:57] LABS: Digoxin 2.3 ng/mL (0.8-2.0)
[2022-07-29 15:01] LABS: Influenza A QL RT-PCR Negative (Negative); Influenza B QL RT-PCR Negative (Negative); SARS-CoV-2 RNA PCR Positive
--- NOTE | 2022-07-29 16:30 | PM.IMHP ---
H&P: HPI History of Present Illness Date/Time: 07/29/22 16:30 Chief Complaint: Slow heart rate. Narrative: This is a pleasant 76-year-old male with paroxysmal atrial fibrillation on chronic anticoagulation, coronary artery disease, heart failure with preserved ejection fraction, end-stage renal disease on hemodialysis, anemia, diet-controlled diabetes, and other comorbidities who presented to the emergency department from dialysis for evaluation after he was found to have a low heart rate at dialysis. He is known to the hospitalist service with a recent admission in which he was found to have a vegetation on the tip of the anterior leaflet of the mitral valve for which he is currently receiving antibiotics (negative blood cultures). He was discharged on 07/16/2022 and he has been generally weak since that time and in fact tells me that he was so weak yesterday that he could hardly get himself out of bed. His son and had to essentially transfer him to the car to get him to dialysis today. Additionally he has had a cough that is rarely productive of dark, thick yellow phlegm and he has also had some loose stools. He denies fever, headache, sore throat, chest pain, and vomiting. No lightheadedness, dizziness, syncope, or near-syncope. No chest pain or shortness of breath, aside from chronic exertional dyspnea. Since arrival to the emergency department his pulse has been in the high 30s to 50s with good mentation and stable blood pressures. He is noted to be on amiodarone and digoxin however the patient reports that he is still taking metoprolol which I believe was supposed to be discontinued with his most recent hospitalization. Review of Systems Review of Systems: Twelve systems were reviewed and are negative except for as per HPI. [facility] Past Medical History Medical History Anemia of chronic disease Arthritis Cataracts, bilateral Maturing Cervical spinal stenosis Coronary artery disease History of non STEMI in May 2018 status post drug-eluting stent to the LAD. 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 intermediate accountant anticoagulation Diabetic peripheral neuropathy Diverticular hemorrhage Diverticulitis End-stage renal disease on hemodialysis Erythropoietin deficiency anemia Heart failure with preserved ejection fraction Echocardiogram in June 2019 showed a severely enlarged left atrial chamber, normal left ventricular size with moderate concentric left ventricular hypertrophy, left ventricular function is at the lower end of normal with an estimated ejection fraction 50-55% (although calculated at 63%), no wall motion abnormalities, moderate aortic valve calcification with no significant stenosis, moderate to moderately severe eccentric mitral valve regurgitation, mild tricuspid valve regurgitation, estimated pulmonary arterial systolic pressure of 32 mmHg, dilated inferior vena cava with <50% collapse upon inspiration consistent with elevated right atrial pressure, 10 mmHg., transesophageal echocardiogram September 2019 demonstrated moderate mitral valve regurgitation with stable EF Hypercholesteremia Hypertension Hypothyroidism Kidney stones (~2008) Mitral regurgitation Paroxysmal atrial fibrillation Status post cardioversion in October 2019 and February 2020. 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 Hemoglobin A1c 5.7 11/13/2020 Surgical History Surgical History History of appendectomy 1974 History of cardiac catheterization (~05/2018) Totally occlude LAD status post drug-eluting stent. Additional findings include high-grade stenosis of non dominant left circumflex, diffuse disease of the ramus intermedius, right posterior lateral branch with 30% distal stenosis, and diffuse but nonocclusive disease of a large
--- NOTE | 2022-07-29 17:26 | PC.NURSE ---
heart healthy dinner tray ordered
[2022-07-29 17:54] LABS: Glucose Point of Care 60 mg/dl (65-105)
[2022-07-29 19:08] LABS: Glucose Point of Care 91 mg/dl (65-105)
[2022-07-29 20:19] LABS: Glucose Point of Care 141 mg/dl (65-105)
[2022-07-29 23:57] LABS: CRP 3.2 mg/dL (<1.0)
[2022-07-30] VITALS (13 sets, daily range): BP systolic 121–135; BP diastolic 68–82; PULSE 39–60; RESP 14–20; TEMP 36.1–37.1; O2SAT 91–100
[2022-07-30 00:23] LABS: Digoxin 2.3 ng/mL (0.8-2.0)
[2022-07-30 00:35] LABS: Procalcitonin 0.7 ng/mL
[2022-07-30 00:50] LABS: Hepatitis B Surface Antigen Negative (Negative)
[2022-07-30 00:55] LABS: HAV RESULT Negative (Negative); Hepatitis B Core IgM Result Negative (Negative)
--- NOTE | 2022-07-30 01:06 | ECG_ITS ---
Measurements Intervals [place] Rate: 44 P: WI: 0 QRS: -82 QRSD: 128 T: 117 QT: 495 QTc: 424 Interpretive Statements ATRIAL FIBRILLATION WITH SLOW VENTRICULAR RESPONSE MARKED LEFT AXIS DEVIATION [QRS AXIS < -30] INCOMPLETE LEFT BUNDLE BRANCH BLOCK COMPARED TO ECG 07/29/2022 11:24:58 NO SIGNIFICANT CHANGES Electronically Signed On 07-30-2022 16:23:35 MANAGER GOVERNMENT by Jacoby Baldwin M.D.
[2022-07-30 01:07] LABS: Hepatitis C Virus Antibody Negative (Negative)
[2022-07-30] MEDS: APIXABAN 2.5 MG TABLET PO ×3 (02:20→20:41)
[2022-07-30 05:35] LABS: Basophils Absolute Auto 0.1 K/mm3 (0.0-0.1); Basophils Percent Auto 0.9 % (0.2-1.2); Eosinophils Absolute Auto 0.1 K/mm3 (0-0.3); Hematocrit 37.9 % (42.0-52.0); Hemoglobin 12.2 g/dL (14.0-18.0); Immature Granulocyte Absolute 0.14 K/mm3 (0.00-0.031); Immature Granulocyte Percent A 1.5 % (0-0.5); Immature Platelet Fraction Pct 8.6 % (0.9-11.2); Lymphocytes Absolute Auto 1.05 K/mm3 (0.9-3.2); Lymphocytes Percent Auto 11.3 % (18.3-44.2); Mean Corpuscular HGB Conc 32.2 g/dl (32-36); Mean Corpuscular Hemoglobin 34.4 pg (26-34); Mean Corpuscular Volume 106.8 fl (80-100); Mean Platelet Volume 11.4 fl (7.4-10.4); Monocytes Absolute Auto 0.8 K/mm3 (0.1-0.6); Monocytes Percent Auto 8.1 % (2.6-8.5); Neutrophils Absolute Auto 7.2 K/mm3 (1.3-6.7); Neutrophils Percent Auto 77.2 % (45.5-73.1); Platelet Count Result 140 k/mm3 (150-375); Red Blood Count 3.55 M/mm3 (4.6-6.20); Red Cell Distribution Width 18.6 % (11.5-14.5); White Blood Count 9.3 K/mm3 (4.5-10.0)
[2022-07-30 05:43] LABS: Alanine Aminotransferase 139 U/L (6-50); Albumin Level 3.6 g/dL (3.5-5.1); Alkaline Phosphatase 75 U/L (38-126); Aspartate Amino Transferase 187 U/L (17-59); Bilirubin,Total 2.3 mg/dL (0.2-1.3); Blood Urea Nitrogen 27 mg/dL (9-20); Calcium 8.3 mg/dL (8.4-10.2); Carbon Dioxide 25 mmol/L (22-30); Chloride 102 mmol/L (98-107); Estimated CRCL calculation 11 ml/min; Estimated Glomerular Filt Rate 12; Glucose 70 mg/dL (65-110); Magnesium 2.2 mg/dL (1.6-2.3); Phosphorus 5.4 mg/dL (2.5-4.5)
[2022-07-30 06:01] LABS: Anion Gap 11 mmol/L (8-16); Potassium 4.8 mmol/L (3.4-5.0); Sodium 138 mmol/L (137-145)
[2022-07-30 06:04] LABS: Anisocytosis 1+ (NORMAL); Platelet Estimate Adequate (Adequate); Poikilocytosis 1+ (NORMAL)
[2022-07-30 06:05] LABS: Acanthocytes 1+ (NORMAL); Macrocytosis 1+ (NORMAL); Schistocytes 1+ (NORMAL); Tear Drop Cells 1+ (NORMAL)
[2022-07-30 06:06] LABS: Burr Cells 2+ (NORMAL)
[2022-07-30 08:24] LABS: Glucose Point of Care 66 mg/dl (65-105)
--- NOTE | 2022-07-30 09:10 | PM.CNNEP ---
Assessment and Plan Assessment and plan (1) End stage renal disease: Code(s): N18.6 - End stage renal disease Status: Chronic Assessment and Plan: partial dialysis treatment yesterday prior to admission no critical electrolytes noted and volume status reasonable (despite CXR findings) plan HD tomorrow and continue M/W/F schedule while hospitalized (2) Bradycardia: Code(s): R00.1 - Bradycardia, unspecified Status: Acute Assessment and Plan: as noted during dialysis treatment yesterday and on evaluation in ER was on digoxin, amiodarone, and metoprolol RETAIL HELPER these are currently on hold heart rate has improved Cardiology consulted given his complex history (3) COVID-19: Code(s): U07.1 - COVID-19 Status: Acute Assessment and Plan: as noted by testing in ER on supplemental oxygen not a candidate for remdesivir due to ESRD status could give steroids but his issue with endocarditis may preclude this hypoxia may be more related to mild pulmonary edema continue supportive therapy (4) Elevated digoxin level: Code(s): R78.89 - Finding of other specified substances, not normally found in blood Status: Acute Assessment and Plan: as noted on admission digoxin on hold further intervention(?) (5) Endocarditis: Code(s): I38 - Endocarditis, valve unspecified Status: Chronic Assessment and Plan: as discovered on last hospitalization resume vancomcyin Will continue to follow. History of Present Illness Reason for Consult Consult date: 07/30/22 Reason for consult: end stage renal disease Chief Complaint Chief complaint: Bradycardia/Weakness History of Present Illness Narrative: The patient is a 76-year-old male with a past medical history as outlined below who presented to [facility] Emergency room for further evaluation of bradycardia. The patient presented to his outpatient dialysis unit/center yesterday for his scheduled dialysis treatment. It should be noted that he reports generalized fatigue and weakness and he could hardly get himself out of bed yesterday to even go to his dialysis treatment. However with the assistance of his son and , they were able to transfer him to the car and get him to his dialysis treatment as planned. However, during his dialysis treatment, it was noted that he developed significant bradycardia. His heart rate has been running anywhere from 30-50 since his dialysis treatment started and after about an hour and a half of his treatment, the treatment was aborted for fear that his heart rate would go down even further. He was subsequently transferred to [facility] ER for further assessment. Workup and evaluation emergency room demonstrated his heart rate was fluctuating anywhere from 30 - 50 much as it was in the outpatient dialysis center although his blood pressure was relatively stable and his mentation was within normal limits. Routine blood test demonstrated labs consistent with his known history of end-stage renal disease although it did report know that his digoxin level was a little bit elevated. He had no reported symptoms of chest pain, shortness of breath, sore throat, fever, chills, nausea, or vomiting. He did report his chronic exertional dyspnea but this has not changed in general. 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 Given his complex medical history and symptoms that led to his presentation to the ER, the patient was subsequent admitted to the hospital for further evaluation and therapy. Renal consultation was requested due to his end-stage renal disease. The patient quite somewhat
[2022-07-30] MEDS: MIDODRINE HCL 10 MG TABLET PO ×4 (09:52→18:03)
[2022-07-30] MEDS: calcitrioL 0.25 MCG CAPSULE PO (09:53)
[2022-07-30] MEDS: FUROSEMIDE 80 MG TABLET PO (09:53)
--- NOTE | 2022-07-30 10:55 | PM.CNCAR ---
Assessment and Plan Assessment and plan (1) Atrial fibrillation with slow ventricular response: Code(s): I48.91 - Unspecified atrial fibrillation Status: Acute (2) End stage renal disease: Code(s): N18.6 - End stage renal disease Status: Chronic (3) Bradycardia: Code(s): R00.1 - Bradycardia, unspecified Status: Acute (4) Elevated digoxin level: Code(s): R78.89 - Finding of other specified substances, not normally found in blood Status: Acute (5) Severe mitral regurgitation: Code(s): I34.0 - Nonrheumatic mitral (valve) insufficiency Status: Acute (6) ESRD on dialysis: Code(s): N18.6 - End stage renal disease; Z99.2 - Dependence on renal dialysis Status: Acute Plan Agree with holding his rate controlling agents for now until heart rate improves. Would repeat Digoxin level. Continue with Eliquis. History of Present Illness History of Present Illness Consult date/time: 07/30/22 10:55 Requesting physician: Valentino Gandhi MD Consult reason: Other (bradycardia) Reason For Visit: Bradycardia/Weakness Narrative: We are being consulted for bradycardia. Mr. Aguirre is a 76-year-old male who was recently here for atrial fibrillation with RVR. We had started him on Amiodarone, as his pressures were not able to tolerate beta-blockers and was requiring midodrine. He had remained in RVR despite Amiodarone therefore we had started Digoxin for additional rate control. He was supposed to be discharged on only Amiodarone and Digoxin, however, had started taking Metoprolol after discharge. Patient presented this time after noting to be bradycardic at dialysis. HR as low as the 30s. Patient has also been having fatigue. Noted to be COVID positive on admission. Patient denies chest pain, palpitations, shortness of breath, lightheadedness/dizziness this morning. Digoxin level noted to be elevated on admission at 2.3 Review of Systems Review of Systems: 8-point ROS obtained. Negative, unless stated in HPI. [facility] Past Medical History Medical History Anemia of chronic disease Arthritis Cataracts, bilateral Maturing Cervical spinal stenosis Coronary artery disease History of non STEMI in May 2018 status post drug-eluting stent to the LAD. 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 mcfp anticoagulation Diabetic peripheral neuropathy Diverticular hemorrhage Diverticulitis End-stage renal disease on hemodialysis Erythropoietin deficiency anemia Heart failure with preserved ejection fraction Echocardiogram in June 2019 showed a severely enlarged left atrial chamber, normal left ventricular size with moderate concentric left ventricular hypertrophy, left ventricular function is at the lower end of normal with an estimated ejection fraction 50-55% (although calculated at 63%), no wall motion abnormalities, moderate aortic valve calcification with no significant stenosis, moderate to moderately severe eccentric mitral valve regurgitation, mild tricuspid valve regurgitation, estimated pulmonary arterial systolic pressure of 32 mmHg, dilated inferior vena cava with <50% collapse upon inspiration consistent with elevated right atrial pressure, 10 mmHg., transesophageal echocardiogram September 2019 demonstrated moderate mitral valve regurgitation with stable EF Hypercholesteremia Hypertension Hypothyroidism Kidney stones (~2008) Mitral regurgitation Paroxysmal atrial fibrillation Status post cardioversion in October 2019 and February 2020. 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 Hemoglobin A1c 5.7 11/13/2020 Surgical History Surgical History History of appendectomy 1974 History of cardiac catheterization (~05/2018) Totally occlude LAD status po
[2022-07-30 12:25] LABS: Glucose Point of Care 98 mg/dl (65-105)
[2022-07-30 16:33] LABS: Glucose Point of Care 88 mg/dl (65-105)
--- NOTE | 2022-07-30 17:46 | PM.IMPN ---
Progress Note: A&P Assessment and Plan (1) Bradycardia: Code(s): R00.1 - Bradycardia, unspecified Status: Acute Assessment and Plan: Patient was discharged on Amiodarone, digoxin and metoprolol. Found today to have bradycardia during HD. Digoxin level is elevated. [place] bradycardia related to dig toxicity and his other medications. These mediations have been stopped. Monitor in IMU. Cardiology consulted. (2) COVID-19: Code(s): U07.1 - COVID-19 Status: Acute Assessment and Plan: CXR showing some mild pulmonary edema but could be COVID. He remains on room air. He states his had COIVD recently. Since on room air, will hold on Decadron. Supportive care. (3) Elevated digoxin level: Code(s): R78.89 - Finding of other specified substances, not normally found in blood Status: Acute Assessment and Plan: As above (4) Congestive heart failure: Code(s): I50.9 - Heart failure, unspecified Status: Acute Assessment and Plan: Euvolemic. Continue to use HD to control volume status as BP tolerates (5) Atrial fibrillation with slow ventricular response: Code(s): I48.91 - Unspecified atrial fibrillation Status: Acute Assessment and Plan: As above. Continue Eliquis. Monitor closely on tele. (6) Endocarditis: Code(s): I38 - Endocarditis, valve unspecified Status: Chronic Assessment and Plan: Patient underwent HALEY with cardioversion 07/12. HALEY showing severe MR with possible small, hypermobile vegetation at the tip of the anterior leaflet of the mitral valve.? BCx were negative. Vanco added for emperic coverage for culture negative endocarditis with plans for 6 weeks of treatment HALEY also showed severe MR. He will need to have this further evaluated and treated once he is done with his abx (7) End-stage renal disease on hemodialysis: Code(s): N18.6 - End stage renal disease; Z99.2 - Dependence on renal dialysis Status: Acute Assessment and Plan: Stable. HD MoWeFr. Add renal diet. Nephrology consulted and appreciate their input. Continue HD per their recommendations. (8) Transaminitis: Code(s): R74.01 - Elevation of levels of liver transaminase levels Status: Acute Assessment and Plan: Elevated LFTs noted and probably related to the bradycardia with hepatic congestion. Follow. (9) Elevated troponin: Code(s): R77.8 - Other specified abnormalities of plasma proteins Status: Acute Assessment and Plan: Troponin elevated but flat. 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 Related to above. Subjective Date/time seen: 07/30/22 17:46 Interval history: 76yo male with ESRD, CHF and AFib here for low HR and found to have COVID. Coughing jag earlier today with cough productive of yellow-brown sputum. SOB better. Not on O2. No CP. Exam Narrative: AF 98.8 121/77 52 14 92% RA Gen - NARD Chest - few basilar crackles o/w distant. Right upper chest tunneled HD cather in place CV - irregular, bradycardic. Tele showing bradycardia. Abd - Soft, NT/ND, Positive BS, PD cath site clean and dry Ext - No pedal edema Psych - Nml mood and affect Skin - Warm and dry Objective Data Vital Signs Vital Signs: Vital Signs - 24 hr 07/29/22 18:00 07/29/22 20:00 07/29/22 20:00 Temperature 98.2 F Pulse Rate 35 L 58 L Respiratory Rate 20 Blood Pressure 127/74 Pulse Oximetry 100 Oxygen Delivery Room Air 07/29/22 20:00 07/29/22 23:02 07/29/22 23:03 Temperature 98.2 F Pulse Rate 52 L 80 50 L Respiratory Rate 18 Blood Pressure 128/79 Pulse Oximetry 100 Oxygen Delivery 07/29/22 20:00 07/29/22 22:00 07/30/22 00:00 Temperature Pulse Rate 49 L 44 L 46 L Respiratory Rate Blood Pressure Pulse Oximetry Oxygen Delivery 07/30/22 00:00 07/30/22 02:00 07/30/22 04:00 Temperature Pul
[2022-07-30 20:02] LABS: Glucose Point of Care 68 mg/dl (65-105)
[2022-07-30 23:33] LABS: Glucose Point of Care 82 mg/dl (65-105)
[2022-07-31] VITALS (24 sets, daily range): BP systolic 115–148; BP diastolic 58–90; PULSE 40–97; RESP 16–20; TEMP 36–37.1; O2SAT 94–100
[2022-07-31 04:34] LABS: Basophils Absolute Auto 0.1 K/mm3 (0.0-0.1); Eosinophils Absolute Auto 0.1 K/mm3 (0-0.3); Eosinophils Percent Auto 1.1 % (0-4.4); Hemoglobin 11.6 g/dL (14.0-18.0); Immature Granulocyte Absolute 0.13 K/mm3 (0.00-0.031); Immature Granulocyte Percent A 1.2 % (0-0.5); Immature Platelet Fraction Pct 8.9 % (0.9-11.2); Lymphocytes Absolute Auto 0.78 K/mm3 (0.9-3.2); Lymphocytes Percent Auto 7.4 % (18.3-44.2); Mean Corpuscular HGB Conc 31.4 g/dl (32-36); Mean Corpuscular Volume 105.1 fl (80-100); Mean Platelet Volume 11.7 fl (7.4-10.4); Monocytes Absolute Auto 0.8 K/mm3 (0.1-0.6); Monocytes Percent Auto 7.5 % (2.6-8.5); Neutrophils Absolute Auto 8.7 K/mm3 (1.3-6.7); Neutrophils Percent Auto 81.8 % (45.5-73.1); Nucleated Red Blood Cells Perc 0.2 % (0.0-0.2); Platelet Count Result 133 k/mm3 (150-375); Red Blood Count 3.52 M/mm3 (4.6-6.20); Red Cell Distribution Width 18.6 % (11.5-14.5); White Blood Count 10.6 K/mm3 (4.5-10.0)
[2022-07-31 04:48] LABS: Alanine Aminotransferase 117 U/L (6-50); Albumin Level 3.6 g/dL (3.5-5.1); Alkaline Phosphatase 88 U/L (38-126); Anion Gap 16 mmol/L (8-16); Aspartate Amino Transferase 122 U/L (17-59); Bilirubin Direct 0.1 mg/dL (0-0.3); Bilirubin,Total 2.1 mg/dL (0.2-1.3); Blood Urea Nitrogen 31 mg/dL (9-20); Calcium 8.3 mg/dL (8.4-10.2); Carbon Dioxide 18 mmol/L (22-30); Chloride 99 mmol/L (98-107); Estimated CRCL calculation 10 ml/min; Estimated Glomerular Filt Rate 11; Glucose 74 mg/dL (65-110); Magnesium 2.3 mg/dL (1.6-2.3); Phosphorus 5.7 mg/dL (2.5-4.5); Potassium 4.3 mmol/L (3.4-5.0); Sodium 133 mmol/L (137-145)
[2022-07-31 05:13] LABS: Anisocytosis 2+ (NORMAL); Crenated RBC 1+ (NORMAL); Macrocytosis 2+ (NORMAL); Microcytosis 1+ (NORMAL); Schistocytes None Seen (NORMAL)
[2022-07-31 05:55] LABS: Hepatitis B Surface Anti Res Positive
[2022-07-31 09:14] LABS: Glucose Point of Care 106 mg/dl (65-105)
[2022-07-31] MEDS: MIDODRINE HCL 10 MG TABLET PO ×2 (09:22→21:58)
[2022-07-31] MEDS: APIXABAN 2.5 MG TABLET PO ×2 (09:22→21:58)
[2022-07-31] MEDS: FUROSEMIDE 80 MG TABLET PO (09:23)
[2022-07-31] MEDS: calcitrioL 0.25 MCG CAPSULE PO (09:23)
--- NOTE | 2022-07-31 09:53 | PM.IMPN ---
Progress Note: A&P Assessment and Plan (1) Bradycardia: Code(s): R00.1 - Bradycardia, unspecified Status: Acute Assessment and Plan: Patient was discharged on Amiodarone, digoxin and metoprolol on 07/16. Found to have bradycardia during HD and sent to the ER for this reason. Digoxin level was elevated. [place] bradycardia related to dig toxicity and his other medications. These mediations have been stopped. HR slowly improving. Monitor in IMU. Cardiology following and appreciate their input Repeat Digoxin level 2.7. Discussed but holding off on Digibind (2) COVID-19: Code(s): U07.1 - COVID-19 Status: Acute Assessment and Plan: CXR showing some mild pulmonary edema but could be COVID. He remains on room air. He states his had COIVD recently. Since on room air, will hold on Decadron. Continue supportive care. (3) Elevated digoxin level: Code(s): R78.89 - Finding of other specified substances, not normally found in blood Status: Acute Assessment and Plan: Repeat level today. As above. (4) Congestive heart failure: Code(s): I50.9 - Heart failure, unspecified Status: Acute Assessment and Plan: Euvolemic. Continue to use HD to control volume status as BP tolerates (5) Atrial fibrillation with slow ventricular response: Code(s): I48.91 - Unspecified atrial fibrillation Status: Acute Assessment and Plan: As above. Continue Eliquis. Monitor closely on tele. (6) Elevated troponin: Code(s): R77.8 - Other specified abnormalities of plasma proteins Status: Acute Assessment and Plan: Troponin elevated but flat. 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 Related to above. (7) Endocarditis: Code(s): I38 - Endocarditis, valve unspecified Status: Chronic Assessment and Plan: Patient underwent HALEY with cardioversion 07/12. HALEY showing severe MR with possible small, hypermobile vegetation at the tip of the anterior leaflet of the mitral valve.? BCx were negative. Vanco added for emperic coverage for culture negative endocarditis with plans for 6 weeks of treatment. Started on 07/12/22 through 08/22/22. HALEY also showed severe MR. He will need to have this further evaluated and treated once he is done with his abx (8) Transaminitis: Code(s): R74.01 - Elevation of levels of liver transaminase levels Status: Acute Assessment and Plan: Elevated LFTs noted and probably related to the bradycardia with hepatic congestion. Levels trending down. Bili elevated but all unconjugated so Gilbert's? probably. Follow. (9) End-stage renal disease on hemodialysis: Code(s): N18.6 - End stage renal disease; Z99.2 - Dependence on renal dialysis Status: Acute Assessment and Plan: Stable. HD MoWeFr. Continue renal diet. Nephrology consulted and appreciate their input. Continue HD per their recommendations. Plan Weakness - Patient weak so PT/OT started. Continue PT/OT. Thrombocytopenia - Plt count low but stable; low plt not uncommon for this patient. Subjective Date/time seen: 07/31/22 09:53 Interval history: 76yo male with ESRD, CHF and AFib here for low HR and found to have COVID. No issues overnight. Cough is better overall. Still productive of yellow -brown sputum but is lightening in color. No chest pain or shortness of breath. No nausea, vomiting or diarrhea. He does have occasional loose stools but this is longstanding. He feels very weak. Exam Narrative: AF 98.3 122/83 52 20 100% RA Gen - NARD lying flat i bed Chest - few right base crackles o/w distant, clear BS. Right upper chest tunneled HD catheter in place CV - irregular, bradycardic. Tele showing bradycardia around 40's yesterday but improved to high 40's and 50's Abd - Soft, NT/ND, Positive BS, PD cath site clean and dry Ext - No pedal edema Psych - Nml mood and affe
[2022-07-31 10:59] LABS: Digoxin 2.7 ng/mL (0.8-2.0); Vancomycin Random 24.7 ug/mL (10-20)
--- NOTE | 2022-07-31 11:51 | PM.PNCARD ---
Progress Note: A&P Assessment and Plan (1) Atrial fibrillation with slow ventricular response: Code(s): I48.91 - Unspecified atrial fibrillation Status: Acute (2) End stage renal disease: Code(s): N18.6 - End stage renal disease Status: Chronic (3) Transaminitis: Code(s): R74.01 - Elevation of levels of liver transaminase levels Status: Acute (4) Congestive heart failure: Code(s): I50.9 - Heart failure, unspecified Status: Acute (5) Bradycardia: Code(s): R00.1 - Bradycardia, unspecified Status: Acute (6) Elevated digoxin level: Code(s): R78.89 - Finding of other specified substances, not normally found in blood Status: Acute (7) Severe mitral regurgitation: Code(s): I34.0 - Nonrheumatic mitral (valve) insufficiency Status: Acute Plan Continue with Eliquis. Continue to hold his rate-controlling agents for now given Digoxin level remains elevated. He had an abdominal ultrasound done this admission showing possible cirrhosis. Given this, would not favor to resume his Amiodarone. Given he had elevated Digoxin level despite low dose of Digoxin, would not favor to resume his Digoxin either. His blood pressures are much better compared to last admission, and he may actually tolerate a beta manny for rate control this time. Preference would be to rate-control his AFIB with Metoprolol. Subjective Date/time seen: 07/31/22 11:51 Interval history: Reason for visit: Bradycardia, atrial fibrillation with slow ventricular response HPI: Mr. Aguirre is a 76-year-old male who was recently here for atrial fibrillation with RVR. We had started him on Amiodarone, as his pressures were not able to tolerate beta-blockers and was requiring midodrine. He had remained in RVR despite Amiodarone therefore we had started Digoxin for additional rate control. He was supposed to be discharged on only Amiodarone and Digoxin, however, had started taking Metoprolol after discharge. Patient presented this time after noting to be bradycardic at dialysis. HR as low as the 30s. Patient has also been having fatigue. Noted to be COVID positive on admission. Patient denies chest pain, palpitations, shortness of breath, lightheadedness/dizziness this morning. Digoxin level noted to be elevated on admission at 2.3. Date of service 07/31/2022: HR still ranging from high 30s to 50s overnight. Digxoin level elevated still this AM. Patient sleeping comfortably this morning. Complains of fatigue, but otherwise no cardiac symptoms. Review of Systems Review of Systems: 8-point ROS obtained. Negative, unless stated in HPI. Exam Const: General: comfortable and no acute distress HENMT: Mouth: Yes moist mucous membranes Eyes: General: appearance normal, both eyes and all related structures Sclera: sclerae normal Neck: Neck: supple Resp: Effort & Inspection: normal respiratory effort Auscultation: diminished lung sounds Cardio: Rhythm: abnormal rhythm irregularly irregular Heart sounds: Murmur heart sound present systolic GI: GI Palp: Yes Soft to palpation Neuro: Speech: normal speech Psych: Mental Status: mental status grossly normal Affect: normal affect Objective Data Vital Signs Vital Signs: Vital Signs - 24 hr 07/30/22 12:00 07/30/22 12:00 07/30/22 12:00 Temperature 36.4 C 36.4 C Pulse Rate 45 L 45 L 48 L Respiratory Rate 16 16 Blood Pressure 125/82 125/82 Pulse Oximetry 91 91 Oxygen Delivery 07/30/22 14:00 07/30/22 16:00 07/30/22 16:00 Temperature 37.1 C 37.1 C Pulse Rate 58 L 39 L 39 L Respiratory Rate 14 14 Blood Pressure 121/77 121/77 Pulse Oximetry 92 92 Oxygen Delivery 07/30/22 16:00 07/30/22 16:00 07/30/22 18:00 Temperature Pulse Rate 52 L 52 L 39 L Respiratory Rate Blood Pressure Pulse Oximetry 92 Oxygen Delivery Room Air 07/30/22 20:00 07/30/22 20:00 07/30/22 20:00 Temperature 36.1 C L
[2022-07-31 12:06] LABS: Glucose Point of Care 149 mg/dl (65-105)
--- NOTE | 2022-07-31 16:35 | P.PNNP_ITS ---
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 * these are currently on hold * Cardiology following (3) COVID-19: Code(s): U07.1 - COVID-19 Status: Acute Assessment and Plan: * as noted by testing in ER * on supplemental oxygen * not a candidate for remdesivir due to ESRD status * could give steroids but his issue with endocarditis may preclude this * hypoxia may be more related to mild pulmonary edema * continue supportive therapy (4) Elevated digoxin level: Code(s): R78.89 - Finding of other specified substances, not normally found in blood Status: Acute Assessment and Plan: * as noted on admission * digoxin on hold * further intervention(?) (5) Endocarditis: Code(s): I38 - Endocarditis, valve unspecified Status: Chronic Assessment and Plan: * as discovered on last hospitalization * resume vancomcyin Will continue to follow. Subjective Date/time seen: 07/31/22 16:35 Patient tolerating hemodialysis treatment at the time of my visit (seen on HD at 4:25PM); no apparent distress noted; resting comfortably; other than weakness and fatigue, no other acute complaints. Exam Narrative: General: WD/WN elderly male in NAD Heart: IRRR; normal S1 and S2; no rub Lungs: decreased at bases Abdomen: soft, nontender, nondistended, positive bowel sounds Extremities: no cyanosis or clubbing; no edema Skin: warm and dry Objective Data Vital Signs Vital Signs: Vital Signs Temp Pulse Resp BP Pulse Ox O2 Del Method 07/31/22 16:20 97.4 F L 53 L 16 117/90 07/31/22 14:00 53 L 07/31/22 12:00 Room Air 07/31/22 12:00 58 L 07/31/22 13:25 Room Air 07/31/22 13:01 Room Air 07/31/22 12:00 98.8 F 58 L 20 125/70 94 07/31/22 10:00 52 L 07/31/22 08:00 98.3 F 56 L 20 122/83 100 07/31/22 08:35 Room Air 07/31/22 08:35 52 L 07/31/22 05:56 59 L 07/31/22 04:00 46 L 07/31/22 04:00 46 L Room Air 07/31/22 04:00 49 L 07/31/22 04:00 98.2 F 49 L 20 127/69 99 07/31/22 00:00 55 L Room Air 07/31/22 00:00 40 L 07/30/22 23:38 50 L 07/30/22 23:38 97.8 F 50 L 20 135/68 98 Intake/Output Intake/Output: Intake & Output 07/28/22 07/29/22 07/30/22 07/31/22 23:59 23:59 23:59 23:59 Intake Total 330 240 Output Total 0 2000 Balance 330 -1760 Meds/Results Medications: Active Medications Generic Name Dose Route Start Last Admin Trade Name Freq PRN Reason Stop Dose Admin Acetaminophen 650 mg 07/29/22 14:39 Acetaminophen 325 Mg Tablet PO Q4H PRN Mild
--- NOTE | 2022-07-31 16:35 | PM.PNNEP ---
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 Cardiology following (3) COVID-19: Code(s): U07.1 - COVID-19 Status: Acute Assessment and Plan: as noted by testing in ER on supplemental oxygen not a candidate for remdesivir due to ESRD status could give steroids but his issue with endocarditis may preclude this hypoxia may be more related to mild pulmonary edema continue supportive therapy (4) Elevated digoxin level: Code(s): R78.89 - Finding of other specified substances, not normally found in blood Status: Acute Assessment and Plan: as noted on admission digoxin on hold further intervention(?) (5) Endocarditis: Code(s): I38 - Endocarditis, valve unspecified Status: Chronic Assessment and Plan: as discovered on last hospitalization resume vancomcyin Will continue to follow. Subjective Date/time seen: 07/31/22 16:35 Patient tolerating hemodialysis treatment at the time of my visit (seen on HD at 4:25PM); no apparent distress noted; resting comfortably; other than weakness and fatigue, no other acute complaints. Exam Narrative: General: WD/WN elderly male in NAD Heart: IRRR; normal S1 and S2; no rub Lungs: decreased at bases Abdomen: soft, nontender, nondistended, positive bowel sounds Extremities: no cyanosis or clubbing; no edema Skin: warm and dry Objective Data Vital Signs Vital Signs: Vital Signs Temp Pulse Resp BP Pulse Ox O2 Del Method 07/31/22 16:20 97.4 F L 53 L 16 117/90 07/31/22 14:00 53 L 07/31/22 12:00 Room Air 07/31/22 12:00 58 L 07/31/22 13:25 Room Air 07/31/22 13:01 Room Air 07/31/22 12:00 98.8 F 58 L 20 125/70 94 07/31/22 10:00 52 L 07/31/22 08:00 98.3 F 56 L 20 122/83 100 07/31/22 08:35 Room Air 07/31/22 08:35 52 L 07/31/22 05:56 59 L 07/31/22 04:00 46 L 07/31/22 04:00 46 L Room Air 07/31/22 04:00 49 L 07/31/22 04:00 98.2 F 49 L 20 127/69 99 07/31/22 00:00 55 L Room Air 07/31/22 00:00 40 L 07/30/22 23:38 50 L 07/30/22 23:38 97.8 F 50 L 20 135/68 98 Intake/Output Intake/Output: Intake & Output 07/28/22 07/29/22 07/30/22 07/31/22 23:59 23:59 23:59 23:59 Intake Total 330 240 Output Total 0 2000 Balance 330 -1760 Meds/Results Medications: Active Medications Generic Name Dose Route Start Last Admin Trade Name Faith PRN Reason Stop Dose Admin Acetaminophen 650 mg 07/29/22 14:39 Acetaminophen 325 Mg Tablet PO Q4H PRN Mild Pain (1-3) or Fever Apixaban 2.5 mg 07/29/22 23:10 07/31/22 21:58 Apixaban 2.5 Mg Tablet PO 2.5 mg Q12HR YING Administration Calcitriol 0.25 mcg 07/30/22 09:00 07/31/22 09:23 Calcitriol 0.25 Mcg Capsule PO 0.25 mcg DAILY YING Administration Dextrose 12.5 gm 07/29/22 17:47 Dextrose 50% 25 Gm/50 Ml Syringe IV PUSH PRN PRN Hypoglycemia Protocol Furosemide 80 mg 07/30/22 09:00 07/31/22 09:23 Furosemide 80 Mg Tablet PO 80 mg DAILY YING Administration Glucagon 1 mg 07/29/22 17:47 Glucagon For Inj 1 Mg Vial IM PRN PRN Hypoglycemia Protocol Glucose 15 gm 07/29/22 17:47 Glucose Oral Gel 15 Gm Of Glucse In 37.5 Gm Tube PO PRN PRN Hypoglycemia Protocol Dextrose 1,000 mls @ 100 mls/hr 07/29/22 17:47 Dextrose 5% 1,000 Ml IVPB PRN PRN Hypoglycemia Protocol Album
[2022-07-31 16:44] LABS: Glucose Point of Care 113 mg/dl (65-105)
[2022-07-31] MEDS: EPOETIN ALFA-EPBX 4,000 UNITS/ML VIAL 4000 UNITS IV PUSH (17:11)
[2022-07-31] MEDS: SODIUM CHLORIDE 0.9% IV 1,000 ML 999 ML IV CONT (17:12)
--- NOTE | 2022-07-31 17:41 | PC.NURSE ---
1630- to dialysis room for treatment via bed [id number] by staff
[2022-07-31 20:38] LABS: Glucose Point of Care 79 mg/dl (65-105)
[2022-08-01] VITALS (12 sets, daily range): BP systolic 119–132; BP diastolic 66–89; PULSE 45–70; RESP 14–18; TEMP 36.3–37.2; O2SAT 93–100
[2022-08-01 06:28] LABS: Alanine Aminotransferase 112 U/L (6-50); Albumin Level 3.7 g/dL (3.5-5.1); Alkaline Phosphatase 98 U/L (38-126); Anion Gap 11 mmol/L (8-16); Aspartate Amino Transferase 109 U/L (17-59); Bilirubin,Total 2.4 mg/dL (0.2-1.3); Blood Urea Nitrogen 19 mg/dL (9-20); Calcium 8.5 mg/dL (8.4-10.2); Carbon Dioxide 28 mmol/L (22-30); Chloride 101 mmol/L (98-107); Estimated CRCL calculation 13 ml/min; Estimated Glomerular Filt Rate 14; Glucose 92 mg/dL (65-110); Potassium 4.6 mmol/L (3.4-5.0); Sodium 140 mmol/L (137-145)
[2022-08-01 08:21] LABS: Glucose Point of Care 99 mg/dl (65-105)
[2022-08-01] MEDS: calcitrioL 0.25 MCG CAPSULE PO (08:24)
[2022-08-01] MEDS: FUROSEMIDE 80 MG TABLET PO (08:24)
[2022-08-01] MEDS: APIXABAN 2.5 MG TABLET PO ×2 (08:24→21:39)
[2022-08-01] MEDS: MIDODRINE HCL 10 MG TABLET PO ×3 (08:25→17:03)
--- NOTE | 2022-08-01 09:16 | PM.IMPN ---
Progress Note: A&P Assessment and Plan (1) Bradycardia: Code(s): R00.1 - Bradycardia, unspecified Status: Acute Assessment and Plan: Patient was discharged on Amiodarone, digoxin and metoprolol on 07/16. Found to have bradycardia during HD and sent to the ER for this reason. Digoxin level was elevated. [place] bradycardia related to dig toxicity and his other medications. These mediations have been stopped. HR slowly improving. Monitor in IMU. Cardiology following and appreciate their input. (2) COVID-19: Code(s): U07.1 - COVID-19 Status: Acute Assessment and Plan: CXR on admission showing some mild pulmonary edema but could be COVID. He remains on room air. Cough improving. He states his had COIVD recently. Since on room air, will hold on Decadron. Continue supportive care. (3) Elevated digoxin level: Code(s): R78.89 - Finding of other specified substances, not normally found in blood Status: Acute Assessment and Plan: As above. (4) Congestive heart failure: Code(s): I50.9 - Heart failure, unspecified Status: Acute Assessment and Plan: Euvolemic. Continue to use HD to control volume status as BP tolerates (5) Atrial fibrillation with slow ventricular response: Code(s): I48.91 - Unspecified atrial fibrillation Status: Acute Assessment and Plan: Patient underwent HALEY with cardioversion 07/12 but back in AFib that evening. As above. Continue Eliquis. Monitor closely on tele. (6) Elevated troponin: Code(s): R77.8 - Other specified abnormalities of plasma proteins Status: Acute Assessment and Plan: Troponin elevated but flat. 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 Elevated Troponin related to above. (7) Endocarditis: Code(s): I38 - Endocarditis, valve unspecified Status: Chronic Assessment and Plan: Patient underwent HALEY with cardioversion 07/12. HALEY showing severe MR with possible small, hypermobile vegetation at the tip of the anterior leaflet of the mitral valve.? BCx were negative. 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 Vanco started on 07/12/22 with plans for treatment through 08/22/22. HALEY also showed severe MR. He will need to have this further evaluated and treated once he is done with his abx (8) Transaminitis: Code(s): R74.01 - Elevation of levels of liver transaminase levels Status: Acute Assessment and Plan: Elevated LFTs noted and probably related to the bradycardia with hepatic congestion. Levels trending down. Bili elevated but all unconjugated so Gilbert's? probably. Follow. (9) End-stage renal disease on hemodialysis: Code(s): N18.6 - End stage renal disease; Z99.2 - Dependence on renal dialysis Status: Acute Assessment and Plan: Stable. HD MoWeFr. Continue renal diet. Nephrology consulted and appreciate their input. Continue HD per their recommendations. Plan Weakness - Patient weak so PT/OT started. Continue PT/OT. Thrombocytopenia - Plt count low but stable; low plt not uncommon for this patient. Subjective Date/time seen: 08/01/22 09:16 Interval history: 76yo male with ESRD, CHF and AFib here for low HR and found to have COVID. Patient was up walking around the room with therapy yesterday. He did have trouble getting out of bed this morning. He is able to sit at the side of bed without assistance. He denies any chest pain or shortness of breath. Cough is much improved and productive of mostly clear sputum. He feels better overall. tolerated hemodialysis well yesterday. Exam Narrative: AF 97.7 123/74 55 18 93% RA Gen - NARD Sitting up at side of the bed Chest - distant but clear breath sounds CV - irregular, bradycardic. Tele showing bradycardia mostly in high 40's and 50's Abd - Soft, NT/ND, Positive BS, PD
[2022-08-01 11:52] LABS: Glucose Point of Care 132 mg/dl (65-105)
--- NOTE | 2022-08-01 15:30 | P.PNNP_ITS ---
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 * Cardiology following (3) COVID-19: Code(s): U07.1 - COVID-19 Status: Acute Assessment and Plan: * as noted by testing in ER * on supplemental oxygen * not a candidate for remdesivir due to ESRD status * could give steroids but his issue with endocarditis may preclude this * hypoxia may be more related to mild pulmonary edema * continue supportive therapy (4) Elevated digoxin level: Code(s): R78.89 - Finding of other specified substances, not normally found in blood Status: Acute Assessment and Plan: * as noted on admission * digoxin on hold * further intervention(?) (5) Endocarditis: Code(s): I38 - Endocarditis, valve unspecified Status: Chronic Assessment and Plan: * as discovered on last hospitalization * resume vancomcyin Will continue to follow. Subjective Date/time seen: 08/01/22 15:30 Tolerated dialysis treatment yesterday evening without any issues or problems; breathing appears stable and no other issues/events overnight or earlier this morning; no other acute complaints voiced under than generalized weakness. Exam Narrative: General: WD/WN elderly male in NAD Heart: IRRR; normal S1 and S2; no rub Lungs: decreased at bases Abdomen: soft, nontender, nondistended, positive bowel sounds Extremities: no cyanosis or clubbing; no edema Skin: warm and dry Objective Data Vital Signs Vital Signs: Vital Signs Temp Pulse Resp BP Pulse Ox O2 Del Method 08/01/22 14:00 52 L 08/01/22 12:00 45 L 08/01/22 10:00 50 L 08/01/22 12:00 97 Room Air 08/01/22 12:00 98.1 F 59 L 16 132/80 97 08/01/22 08:00 Room Air 08/01/22 08:00 61 08/01/22 08:00 97.8 F 52 L 14 123/66 97 08/01/22 06:00 55 L 08/01/22 04:00 61 08/01/22 02:00 70 08/01/22 00:00 51 L 07/31/22 22:00 60 08/01/22 04:00 97.7 F 54 L 18 123/74 93 08/01/22 04:00 70 18 100 08/01/22 04:00 Room Air 08/01/22 00:00 Room Air 07/31/22 20:00 Room Air 07/31/22 20:00 41 L 08/01/22 00:00 98.2 F 60 18 130/76 100 07/31/22 20:00 97.7 F 97 18 115/72 100 07/31/22 19:43 97.9 F 54 L 18 137/58 L 07/31/22 19:31 52 L 133/85 07/31/22 18:00 48 L 07/31/22 19:10 57 L 135/87 07/31/22 18:50 51 L 148/85 H 07/31/22 18:30 47 L 138/85 07/31/22 18:10 48 L 134/87 07/31/22 17:50 56 L 130/82 Intake/Output Intake/Output: Intake & Output 07/29/22 07/30/22 07/31/22 08/01/22 23:59 23:59 23:59 23:59 Intake Total 330
--- NOTE | 2022-08-01 15:30 | PM.PNNEP ---
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 Cardiology following (3) COVID-19: Code(s): U07.1 - COVID-19 Status: Acute Assessment and Plan: as noted by testing in ER on supplemental oxygen not a candidate for remdesivir due to ESRD status could give steroids but his issue with endocarditis may preclude this hypoxia may be more related to mild pulmonary edema continue supportive therapy (4) Elevated digoxin level: Code(s): R78.89 - Finding of other specified substances, not normally found in blood Status: Acute Assessment and Plan: as noted on admission digoxin on hold further intervention(?) (5) Endocarditis: Code(s): I38 - Endocarditis, valve unspecified Status: Chronic Assessment and Plan: as discovered on last hospitalization resume vancomcyin Will continue to follow. Subjective Date/time seen: 08/01/22 15:30 Tolerated dialysis treatment yesterday evening without any issues or problems; breathing appears stable and no other issues/events overnight or earlier this morning; no other acute complaints voiced under than generalized weakness. Exam Narrative: General: WD/WN elderly male in NAD Heart: IRRR; normal S1 and S2; no rub Lungs: decreased at bases Abdomen: soft, nontender, nondistended, positive bowel sounds Extremities: no cyanosis or clubbing; no edema Skin: warm and dry Objective Data Vital Signs Vital Signs: Vital Signs Temp Pulse Resp BP Pulse Ox O2 Del Method 08/01/22 14:00 52 L 08/01/22 12:00 45 L 08/01/22 10:00 50 L 08/01/22 12:00 97 Room Air 08/01/22 12:00 98.1 F 59 L 16 132/80 97 08/01/22 08:00 Room Air 08/01/22 08:00 61 08/01/22 08:00 97.8 F 52 L 14 123/66 97 08/01/22 06:00 55 L 08/01/22 04:00 61 08/01/22 02:00 70 08/01/22 00:00 51 L 07/31/22 22:00 60 08/01/22 04:00 97.7 F 54 L 18 123/74 93 08/01/22 04:00 70 18 100 08/01/22 04:00 Room Air 08/01/22 00:00 Room Air 07/31/22 20:00 Room Air 07/31/22 20:00 41 L 08/01/22 00:00 98.2 F 60 18 130/76 100 07/31/22 20:00 97.7 F 97 18 115/72 100 07/31/22 19:43 97.9 F 54 L 18 137/58 L 07/31/22 19:31 52 L 133/85 07/31/22 18:00 48 L 07/31/22 19:10 57 L 135/87 07/31/22 18:50 51 L 148/85 H 07/31/22 18:30 47 L 138/85 07/31/22 18:10 48 L 134/87 07/31/22 17:50 56 L 130/82 Intake/Output Intake/Output: Intake & Output 07/29/22 07/30/22 07/31/22 08/01/22 23:59 23:59 23:59 23:59 Intake Total 330 240 240 Output Total 0 2000 0 Balance 330 -1760 240 Meds/Results Medications: Active Medications Generic Name Dose Route Start Last Admin Trade Name Chaceq PRN Reason Stop Dose Admin Acetaminophen 650 mg 07/29/22 14:39 Acetaminophen 325 Mg Tablet PO Q4H PRN Mild Pain (1-3) or Fever Apixaban 2.5 mg 07/29/22 23:10 08/01/22 08:24 Apixaban 2.5 Mg Tablet PO 2.5 mg Q12HR YING Administration Calcitriol 0.25 mcg 07/30/22 09:00 08/01/22 08:24 Calcitriol 0.25 Mcg Capsule PO 0.25 mcg DAILY YING Administration Dextrose 12.5 gm 07/29/22 17:47 Dextrose 50% 25 Gm/50 Ml Syringe IV PUSH PRN PRN Hypoglycemia Protocol Furosemide 80 mg 07/30/22 09:00 08/01/22 08:24 Furosemide 80 Mg Tablet PO 80 mg DAILY YING Administration Glucagon 1 mg 07/29/22 17:47 Gluc
[2022-08-01 16:42] LABS: Glucose Point of Care 103 mg/dl (65-105)
[2022-08-01 20:43] LABS: Glucose Point of Care 136 mg/dl (65-105)
[2022-08-02] VITALS (25 sets, daily range): BP systolic 119–158; BP diastolic 48–91; PULSE 48–85; RESP 16–20; TEMP 35.6–36.9; O2SAT 90–100
--- NOTE | 2022-08-02 06:13 | PC.NURSE ---
Lab called rn with result of critical digoxin level of 2.0 which is not a critical level. rn called the lab and the blood bank laboratory technician she does not know why it popped up critical that she would check into it.
[2022-08-02] MEDS: calcitrioL 0.25 MCG CAPSULE PO (09:25)
[2022-08-02] MEDS: APIXABAN 2.5 MG TABLET PO ×2 (09:25→22:44)
[2022-08-02] MEDS: MIDODRINE HCL 10 MG TABLET PO ×3 (09:25→16:21)
[2022-08-02] MEDS: FUROSEMIDE 80 MG TABLET PO (09:25)
--- NOTE | 2022-08-02 09:36 | P.CDI_ITS ---
CDI Query Clarified Diagnosis Clarified Diagnosis: Elevated BNP on 07/29/22 lab work. Pt with documented history of CHF. Pt takes Lasix as a home medication. Lasix on current inpatient medication list. CHF is noted on the Assessment and Plan. Please specify type and acuity of heart failure if known. * Acute * Chronic * Acute on Chronic * Unknown * Systolic * Diastolic * Combined Systolic and Diastolic * Unknown
[2022-08-02 12:46] LABS: Glucose Point of Care 156 mg/dl (65-105)
--- NOTE | 2022-08-02 16:01 | PM.IMPN ---
Progress Note: A&P Assessment and Plan (1) Bradycardia: Code(s): R00.1 - Bradycardia, unspecified Status: Acute Assessment and Plan: Patient was previously discharged on Amiodarone, digoxin and metoprolol on 07/16. Found to have bradycardia during HD and sent to the ER for this reason. Digoxin level was elevated. [place] bradycardia related to dig toxicity and his other medications. These mediations have been stopped. HR slowly improving. Monitor in IMU. Cardiology following and appreciate their input. Currently heart rate between 55 and 65 on the groundwater monitoring technician. Continue to monitor closely. (2) COVID-19: Code(s): U07.1 - COVID-19 Status: Acute Assessment and Plan: CXR on admission showing some mild pulmonary edema but could be COVID. He remains on room air. Cough improving. He states his had COIVD recently. Since on room air, will hold on Decadron. Continue supportive care. Chest x-ray has been performed today. The official reading is pending at the time of this dictation. On my evaluation, no acute disease. Follow up official report. (3) Elevated digoxin level: Code(s): R78.89 - Finding of other specified substances, not normally found in blood Status: Acute Assessment and Plan: As above. (4) Congestive heart failure: Code(s): I50.9 - Heart failure, unspecified Status: Acute Assessment and Plan: Euvolemic. Continue to use HD to control volume status as BP tolerates. Management per Nephrology. (5) Atrial fibrillation with slow ventricular response: Code(s): I48.91 - Unspecified atrial fibrillation Status: Acute Assessment and Plan: Patient underwent HALEY with cardioversion 07/12 but back in AFib that evening. As above. Continue Eliquis. Monitor closely on tele. Follow-up cardiology evaluation. (6) Elevated troponin: Code(s): R77.8 - Other specified abnormalities of plasma proteins Status: Acute Assessment and Plan: Troponin elevated but flat. 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 Elevated Troponin related to above. (7) Endocarditis: Code(s): I38 - Endocarditis, valve unspecified Status: Chronic Assessment and Plan: Patient underwent HALEY with cardioversion 07/12. HALEY showing severe MR with possible small, hypermobile vegetation at the tip of the anterior leaflet of the mitral valve.? BCx were negative. 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 Vanco started on 07/12/22 with plans for treatment through 08/22/22. HALEY also showed severe MR. He will need to have this further evaluated and treated once he is done with his abx (8) Transaminitis: Code(s): R74.01 - Elevation of levels of liver transaminase levels Status: Acute Assessment and Plan: Elevated LFTs noted and probably related to the bradycardia with hepatic congestion. Levels trending down. Bili elevated but all unconjugated so Gilbert's? probably. Follow up LFTs today. (9) End-stage renal disease on hemodialysis: Code(s): N18.6 - End stage renal disease; Z99.2 - Dependence on renal dialysis Status: Acute Assessment and Plan: Stable. HD MoWeFr. Continue renal diet. Nephrology consulted and appreciate their input. Continue HD per their recommendations. Plan Weakness - Patient weak so PT/OT started. Continue PT/OT. Thrombocytopenia - Plt count low but stable; low plt not uncommon for this patient. Time Spent With Patient Time with patient: 15 - 25 minutes Subjective Date/time seen: 08/02/22 23:01 Interval history: 76yo male with ESRD, CHF and AFib here for low HR and found to have COVID. Patient was seen and and examined at the bedside. He denies any complaint. He did not appear to be in any distress. Sleep is adequate. Appetite is preserved. He denied any shortness of breath. Hear
--- NOTE | 2022-08-02 17:09 | PM.PNNEP ---
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 Cardiology following recommending metoprolol for rate control at this time (3) COVID-19: Code(s): U07.1 - COVID-19 Status: Acute Assessment and Plan: as noted by testing in ER on supplemental oxygen not a candidate for remdesivir due to ESRD status could give steroids but his issue with endocarditis may preclude this hypoxia may be more related to mild pulmonary edema continue supportive therapy (4) Elevated digoxin level: Code(s): R78.89 - Finding of other specified substances, not normally found in blood Status: Acute Assessment and Plan: as noted on admission digoxin on hold Cardiology recommending not restarting... (5) Endocarditis: Code(s): I38 - Endocarditis, valve unspecified Status: Chronic Assessment and Plan: as discovered on last hospitalization on vancomcyin Will continue to follow. Subjective Date/time seen: 08/02/22 17:09 Tolerating hemodialysis treatment at the time of my visit (seen on HD at 4:50PM); working with PT/OT as tolerated given his issues with weakness/debility; respiratory status seems stable if not better; overall, states that he does seem to be doing better. Exam Narrative: General: WD/WN elderly male in NAD Heart: IRRR; normal S1 and S2; no rub Lungs: decreased at bases Abdomen: soft, nontender, nondistended, positive bowel sounds Extremities: no cyanosis or clubbing; no edema Skin: warm and intact Objective Data Vital Signs Vital Signs: Vital Signs Temp Pulse Resp BP Pulse Ox O2 Del Method O2 Flow Rate 08/02/22 17:05 69 147/91 H 08/02/22 16:40 2 08/02/22 16:45 67 139/87 08/02/22 16:40 97.4 F L 64 16 143/85 H 08/02/22 14:00 61 08/02/22 12:00 66 08/02/22 12:00 Room Air 08/02/22 12:00 97.4 F L 70 20 135/80 92 08/02/22 10:00 64 08/02/22 08:00 60 08/02/22 08:00 96.9 F L 55 L 20 128/75 100 08/02/22 08:00 Room Air 08/02/22 06:00 56 L 08/02/22 04:00 97.2 F L 57 L 16 119/78 90 08/02/22 04:00 48 L 18 96 Room Air 08/02/22 04:00 54 L 08/02/22 02:00 56 L 08/02/22 00:47 97.2 F L 54 L 18 129/79 96 08/02/22 00:00 60 18 99 Room Air 08/02/22 00:00 62 08/01/22 22:00 54 L Intake/Output Intake/Output: Intake & Output 07/30/22 07/31/22 08/01/22 08/02/22 23:59 23:59 23:59 23:59 Intake Total 330 825 279 5715 Output Total 0 2000 600 3000 Balance 330 -7192 -120 -3117 Meds/Results Medications: Active Medications Generic Name Dose Route Start Last Admin Trade Name Freq PRN Reason Stop Dose Admin Acetaminophen 650 mg 07/29/22 14:39 Acetaminophen 325 Mg Tablet PO Q4H PRN Mild Pain (1-3) or Fever Apixaban 2.5 mg 07/29/22 23:10 08/02/22 09:25 Apixaban 2.5 Mg Tablet PO 2.5 mg Q12HR YING Administration Calcitriol 0.25 mcg 07/30/22 09:00 08/02/22 09:25 Calcitriol 0.25 Mcg Capsule PO 0.25 mcg DAILY YING Administration Dextrose 12.5 gm 07/29/22 17:47 Dextrose 50% 25 Gm/50 Ml Syringe IV PUSH PRN PRN Hypoglycemia Protocol Epoetin Chance-epbx 4,000 units 08/02/22 22:05 Epoetin Chance-Epbx 4,000 Units/Ml Vial IV PUSH 08/02/22 22:06 ONCE ONE Furosemide 80 mg 07/30/22 09:00 08/02/22 09:25 Furosemide 80 Mg Tablet PO 80 mg DAILY YING Administration Glucagon 1 mg 07/29/22 1
--- NOTE | 2022-08-02 17:09 | P.PNNP_ITS ---
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 on hold * Cardiology following * recommending metoprolol for rate control at this time (3) COVID-19: Code(s): U07.1 - COVID-19 Status: Acute Assessment and Plan: * as noted by testing in ER * on supplemental oxygen * not a candidate for remdesivir due to ESRD status * could give steroids but his issue with endocarditis may preclude this * hypoxia may be more related to mild pulmonary edema * continue supportive therapy (4) Elevated digoxin level: Code(s): R78.89 - Finding of other specified substances, not normally found in blood Status: Acute Assessment and Plan: * as noted on admission * digoxin on hold * Cardiology recommending not restarting... (5) Endocarditis: Code(s): I38 - Endocarditis, valve unspecified Status: Chronic Assessment and Plan: * as discovered on last hospitalization * on vancomcyin Will continue to follow. Subjective Date/time seen: 08/02/22 17:09 Tolerating hemodialysis treatment at the time of my visit (seen on HD at 4:50PM); working with PT/OT as tolerated given his issues with weakness/debility; respiratory status seems stable if not better; overall, states that he does seem to be doing better. Exam Narrative: General: WD/WN elderly male in NAD Heart: IRRR; normal S1 and S2; no rub Lungs: decreased at bases Abdomen: soft, nontender, nondistended, positive bowel sounds Extremities: no cyanosis or clubbing; no edema Skin: warm and intact Objective Data Vital Signs Vital Signs: Vital Signs Temp Pulse Resp BP Pulse Ox O2 Del Method O2 Flow Rate 08/02/22 17:05 69 147/91 H 08/02/22 16:40 2 08/02/22 16:45 67 139/87 08/02/22 16:40 97.4 F L 64 16 143/85 H 08/02/22 14:00 61 08/02/22 12:00 66 08/02/22 12:00 Room Air 08/02/22 12:00 97.4 F L 70 20 135/80 92 08/02/22 10:00 64 08/02/22 08:00 60 08/02/22 08:00 96.9 F L 55 L 20 128/75 100 08/02/22 08:00 Room Air 08/02/22 06:00 56 L 08/02/22 04:00 97.2 F L 57 L 16 119/78 90 08/02/22 04:00 48 L 18 96 Room Air 08/02/22 04:00 54 L 08/02/22 02:00 56 L 08/02/22 00:47 97.2 F L 54 L 18 129/79 96 08/02/22 00:00 60 18 99 Room Air 08/02/22 00:00 62 08/01/22 22:00 54 L Intake/Output Intake/Output: Intake & Output 07/30/22 07/31/22 08/01/22 08/02/22 23:59 23:59 23:59 23:59 Intake Total 330 006 046 2903 Output Total 0 2000 600 3000 Balance 815 -0609 -879 -1727 Meds/Results Medications: Active Medications
[2022-08-02] MEDS: EPOETIN ALFA-EPBX 4,000 UNITS/ML VIAL 4000 UNITS IV PUSH (17:31)
[2022-08-02 22:20] LABS: Vancomycin Random 21.2 ug/mL (10-20)
--- NOTE | 2022-08-02 23:04 | PC.NURSE ---
Returned from dialysis at approx. 2030 via bed. Three liters fluid removed per mine utility operator. Patient tolerated treatment well.
[2022-08-03] VITALS (13 sets, daily range): BP systolic 115–138; BP diastolic 65–95; PULSE 54–86; RESP 16–20; TEMP 36.3–37.5; O2SAT 90–100
[2022-08-03 04:38] LABS: Hemoglobin A1C 6.9 % (<5.7)
[2022-08-03] MEDS: calcitrioL 0.25 MCG CAPSULE PO (08:58)
[2022-08-03] MEDS: APIXABAN 2.5 MG TABLET PO ×2 (08:58→21:32)
[2022-08-03] MEDS: MIDODRINE HCL 10 MG TABLET PO ×3 (08:58→18:29)
[2022-08-03] MEDS: FUROSEMIDE 80 MG TABLET PO (08:58)
--- NOTE | 2022-08-03 10:05 | PM.PNNEP ---
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 (5) Endocarditis: Code(s): I38 - Endocarditis, valve unspecified Status: Chronic Assessment and Plan: as discovered on last hospitalization on vancomcyin Will continue to follow. Subjective Date/time seen: 08/03/22 10:05 Tolerated dialysis treatment yesterday evening without any issues or problems; continues to work with PT/OT as tolerated; breathing/respiratory status stable if not better at this time and in comparison to admission; no other issues/events overnight or earlier this morning. Exam Narrative: General: WD/WN elderly male in NAD Heart: IRRR; normal S1 and S2; no rub Lungs: decreased at bases Abdomen: soft, nontender, nondistended, positive bowel sounds Extremities: no cyanosis or clubbing; no edema Skin: no rash Objective Data Vital Signs Vital Signs: Vital Signs Temp Pulse Resp BP Pulse Ox O2 Del Method O2 Flow Rate 08/03/22 08:00 97.8 F 76 20 115/65 98 08/03/22 08:50 125/95 H 08/03/22 06:00 66 08/03/22 02:00 68 08/03/22 04:00 66 08/02/22 20:00 69 08/02/22 20:30 95 Room Air 08/03/22 00:00 97.3 F L 70 18 128/79 100 08/02/22 19:49 98.5 F 75 16 145/83 H 08/02/22 19:46 52 L 141/48 H 08/02/22 19:25 53 L 144/74 H 08/02/22 19:05 66 134/54 L 08/02/22 18:45 66 158/86 H 08/02/22 18:25 68 138/78 08/02/22 18:05 67 146/83 H 08/02/22 18:00 71 08/02/22 16:00 62 08/02/22 16:00 Room Air 08/02/22 16:00 96.9 F L 85 20 129/89 98 08/02/22 17:45 70 143/91 H 08/02/22 17:25 69 145/86 H 08/02/22 17:05 69 147/91 H 08/02/22 16:40 2 08/02/22 16:45 67 139/87 08/02/22 16:40 97.4 F L 64 16 143/85 H 08/02/22 14:00 61 Intake/Output Intake/Output: Intake & Output 07/31/22 08/01/22 08/02/22 08/03/22 23:59 23:59 23:59 23:59 Intake Total 404 343 9402 240 Output Total 2000 600 3000 0 Balance -1760 -120 -1840 240 Meds/Results Medications: Active Medications Generic Name Dose Route Start Last Admin Trade Name Freq PRN Reason Stop Dose Admin Acetaminophen 650 mg 07/29/22 14:39 Acetaminophen 325 Mg Tablet PO Q4H PRN Mild Pain (1-3) or Fever Apixaban 2.5 mg 07/29/22 23:10 08/03/22 08:58 Apixaban 2.5 Mg Tablet PO 2.5 mg Q12HR YING Administration Calcitriol 0.25 mcg 07/30/22 09:00 08/03/22 08:58 Calcitriol 0.25 Mcg Capsule PO 0.25 mcg DAILY YING Administration Dextrose 12.5 gm 07/29/22 17:47 Dextrose 50% 25 Gm/50 Ml Syringe IV PUSH PRN PRN Hypoglycemia Protocol Furosemide 80 mg 07/30/22 09:00 08/03/22 08:58 Furosemide 80 Mg Tablet PO 80 mg DAILY YING Administration Glucagon 1 mg 07/29/22 17:47 Glucagon For Inj 1 Mg Vial IM PRN PRN Hypoglycemia Protocol Glucose 15 gm 07/29/22
--- NOTE | 2022-08-03 10:05 | P.PNNP_ITS ---
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 (5) Endocarditis: Code(s): I38 - Endocarditis, valve unspecified Status: Chronic Assessment and Plan: * as discovered on last hospitalization * on vancomcyin Will continue to follow. Subjective Date/time seen: 08/03/22 10:05 Tolerated dialysis treatment yesterday evening without any issues or problems; continues to work with PT/OT as tolerated; breathing/respiratory status stable if not better at this time and in comparison to admission; no other issues/events overnight or earlier this morning. Exam Narrative: General: WD/WN elderly male in NAD Heart: IRRR; normal S1 and S2; no rub Lungs: decreased at bases Abdomen: soft, nontender, nondistended, positive bowel sounds Extremities: no cyanosis or clubbing; no edema Skin: no rash Objective Data Vital Signs Vital Signs: Vital Signs Temp Pulse Resp BP Pulse Ox O2 Del Method O2 Flow Rate 08/03/22 08:00 97.8 F 76 20 115/65 98 08/03/22 08:50 125/95 H 08/03/22 06:00 66 08/03/22 02:00 68 08/03/22 04:00 66 08/02/22 20:00 69 08/02/22 20:30 95 Room Air 08/03/22 00:00 97.3 F L 70 18 128/79 100 08/02/22 19:49 98.5 F 75 16 145/83 H 08/02/22 19:46 52 L 141/48 H 08/02/22 19:25 53 L 144/74 H 08/02/22 19:05 66 134/54 L 08/02/22 18:45 66 158/86 H 08/02/22 18:25 68 138/78 08/02/22 18:05 67 146/83 H 08/02/22 18:00 71 08/02/22 16:00 62 08/02/22 16:00 Room Air 08/02/22 16:00 96.9 F L 85 20 129/89 98 08/02/22 17:45 70 143/91 H 08/02/22 17:25 69 145/86 H 08/02/22 17:05 69 147/91 H 08/02/22 16:40 2 08/02/22 16:45 67 139/87 08/02/22 16:40 97.4 F L 64 16 143/85 H 08/02/22 14:00 61 Intake/Output Intake/Output: Intake & Output 07/31/22 08/01/22 08/02/22 08/03/22 23:59 23:59 23:59 23:59 Intake Total 500 299 4154 240 Output Total 1999 600 3000 0 Balance -1760 -120 -1840 240 Meds/Results Medications:
--- NOTE | 2022-08-03 11:02 | PM.IMPN ---
Progress Note: A&P Assessment and Plan (1) Bradycardia: Code(s): R00.1 - Bradycardia, unspecified Status: Acute Assessment and Plan: Patient was previously discharged on Amiodarone, digoxin and metoprolol on 07/16.Currently they are being held. He was initially found to have bradycardia during HD and sent to the ER for this reason. Digoxin level was elevated. [place] bradycardia related to dig toxicity and his other medications. These mediations have been stopped. HR slowly improving. Monitor in IMU. Cardiology following and appreciate their input. Currently heart rate between 55 and 65 on the nuclear monitoring technician. Continue to monitor closely. (2) COVID-19: Code(s): U07.1 - COVID-19 Status: Acute Assessment and Plan: CXR on admission showing some mild pulmonary edema but could be COVID. He remains on room air. Cough improving. He states his had COIVD recently. Since on room air, will hold on Decadron. Continue supportive care. Chest x-ray has been performed today. The official reading is pending at the time of this dictation. On my evaluation, no acute disease. Follow up official report. (3) Elevated digoxin level: Code(s): R78.89 - Finding of other specified substances, not normally found in blood Status: Acute Assessment and Plan: As above. (4) Congestive heart failure: Code(s): I50.9 - Heart failure, unspecified Status: Acute Assessment and Plan: Euvolemic. Continue to use HD to control volume status as BP tolerates. Management per Nephrology. (5) Atrial fibrillation with slow ventricular response: Code(s): I48.91 - Unspecified atrial fibrillation Status: Acute Assessment and Plan: Patient underwent HALEY with cardioversion 07/12 but back in AFib that evening. As above. Continue Eliquis. Monitor closely on tele. Follow-up cardiology evaluation. (6) Elevated troponin: Code(s): R77.8 - Other specified abnormalities of plasma proteins Status: Acute Assessment and Plan: Troponin elevated but flat. 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 Elevated Troponin related to above. (7) Endocarditis: Code(s): I38 - Endocarditis, valve unspecified Status: Chronic Assessment and Plan: Patient underwent HALEY with cardioversion 07/12. HALEY showing severe MR with possible small, hypermobile vegetation at the tip of the anterior leaflet of the mitral valve.? BCx were negative. 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 Vanco started on 07/12/22 with plans for treatment through 08/22/22. HALEY also showed severe MR. He will need to have this further evaluated and treated once he is done with his abx (8) Transaminitis: Code(s): R74.01 - Elevation of levels of liver transaminase levels Status: Acute Assessment and Plan: Elevated LFTs noted and probably related to the bradycardia with hepatic congestion. Levels trending down. Bili elevated but all unconjugated so Gilbert's? probably. Follow up LFTs today. (9) End-stage renal disease on hemodialysis: Code(s): N18.6 - End stage renal disease; Z99.2 - Dependence on renal dialysis Status: Acute Assessment and Plan: Stable. HD MoWeFr. Continue renal diet. Nephrology consulted and appreciate their input. Continue HD per their recommendations. Plan Weakness - Patient weak so PT/OT started. Continue PT/OT. Thrombocytopenia - Plt count low but stable; low plt not uncommon for this patient. Subjective Date/time seen: 08/03/22 14:02 Interval history: 76yo male with ESRD, CHF and AFib here for low HR and found to have COVID. Patient was seen and and examined at the bedside. He denies any complaint. He denied any shortness of breath. Heart rate on the monitor fluctuates from the mid 50s to the mid 60s. Review of Systems Review o
[2022-08-03 14:34] LABS: Basophils Absolute Auto 0.1 K/mm3 (0.0-0.1); Basophils Percent Auto 0.7 % (0.2-1.2); Eosinophils Percent Auto 0.2 % (0-4.4); Hematocrit 39.2 % (42.0-52.0); Hemoglobin 12.3 g/dL (14.0-18.0); Immature Granulocyte Absolute 0.09 K/mm3 (0.00-0.031); Immature Granulocyte Percent A 0.9 % (0-0.5); Lymphocytes Absolute Auto 0.48 K/mm3 (0.9-3.2); Mean Corpuscular HGB Conc 31.4 g/dl (32-36); Mean Corpuscular Hemoglobin 34.6 pg (26-34); Mean Corpuscular Volume 110.4 fl (80-100); Mean Platelet Volume 11.8 fl (7.4-10.4); Monocytes Absolute Auto 0.6 K/mm3 (0.1-0.6); Monocytes Percent Auto 6.7 % (2.6-8.5); Neutrophils Absolute Auto 8.2 K/mm3 (1.3-6.7); Neutrophils Percent Auto 86.5 % (45.5-73.1); Platelet Count Result 143 k/mm3 (150-375); Red Blood Count 3.55 M/mm3 (4.6-6.20); Red Cell Distribution Width 19.6 % (11.5-14.5); White Blood Count 9.5 K/mm3 (4.5-10.0)
[2022-08-03 14:55] LABS: Alanine Aminotransferase 69 U/L (6-50); Albumin Level 3.9 g/dL (3.5-5.1); Alkaline Phosphatase 76 U/L (38-126); Anion Gap 11 mmol/L (8-16); Aspartate Amino Transferase 48 U/L (17-59); Bilirubin,Total 2.8 mg/dL (0.2-1.3); Blood Urea Nitrogen 21 mg/dL (9-20); Calcium 8.5 mg/dL (8.4-10.2); Carbon Dioxide 29 mmol/L (22-30); Chloride 95 mmol/L (98-107); Estimated CRCL calculation 11 ml/min; Estimated Glomerular Filt Rate 13; Glucose 101 mg/dL (65-110); Potassium 3.9 mmol/L (3.4-5.0); Sodium 135 mmol/L (137-145)
[2022-08-03 15:23] LABS: Macrocytosis 1+ (NORMAL); Platelet Estimate Adequate (Adequate)
[2022-08-03 15:24] LABS: Ovalocytes 1+ (NORMAL); Schistocytes None Seen (NORMAL)
[2022-08-04] VITALS (12 sets, daily range): BP systolic 116–122; BP diastolic 65–84; PULSE 55–108; RESP 16–30; TEMP 36.4–37; O2SAT 90–99
[2022-08-04 05:54] LABS: Vancomycin Random 23.7 ug/mL (10-20)
[2022-08-04] MEDS: FUROSEMIDE 80 MG TABLET PO (08:58)
[2022-08-04] MEDS: MIDODRINE HCL 10 MG TABLET PO ×3 (08:58→18:33)
[2022-08-04] MEDS: APIXABAN 2.5 MG TABLET PO ×2 (08:58→20:25)
[2022-08-04] MEDS: calcitrioL 0.25 MCG CAPSULE PO (08:58)
[2022-08-04 09:39] LABS: Anion Gap 12 mmol/L (8-16); Blood Urea Nitrogen 29 mg/dL (9-20); Calcium 8.5 mg/dL (8.4-10.2); Carbon Dioxide 28 mmol/L (22-30); Chloride 99 mmol/L (98-107); Estimated CRCL calculation 10 ml/min; Estimated Glomerular Filt Rate 11; Glucose 111 mg/dL (65-110); Potassium 4.4 mmol/L (3.4-5.0); Sodium 139 mmol/L (137-145)
--- NOTE | 2022-08-04 10:15 | PM.IMPN ---
Progress Note: A&P Assessment and Plan (1) Endocarditis: Code(s): I38 - Endocarditis, valve unspecified Status: Chronic Assessment and Plan: Patient underwent HALEY with cardioversion 07/12. HALEY showing severe MR with possible small, hypermobile vegetation at the tip of the anterior leaflet of the mitral valve.? BCx were negative. 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 Vanco started on 07/12/22 with plans for treatment through 08/22/22. HALEY also showed severe MR. He will need to have this further evaluated and treated once he is done with his abx (2) Mitral regurgitation: Code(s): I34.0 - Nonrheumatic mitral (valve) insufficiency Status: Acute Assessment and Plan: Patient was diagnosis with severe mitral regurgitation on recent HALEY. 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 Estimated date of completion August 22, 2022. (3) Bradycardia: Code(s): R00.1 - Bradycardia, unspecified Status: Acute Assessment and Plan: Bradycardia appears to have resolved with heart rates in the low 100s.Patient was previously discharged on Amiodarone, digoxin and metoprolol on 07/16. Due to persistent bradycardia, they were appropriately being held on admission.. He was initially found to have bradycardia during HD and sent to the ER for this reason. Digoxin level was elevated. [place] bradycardia related to dig toxicity and his other medications. These mediations have been stopped. HR slowly improving to 100-110s today. Will resume metoprolol per Cardiology recommendation. (4) COVID-19: Code(s): U07.1 - COVID-19 Status: Acute Assessment and Plan: CXR on admission showing some mild pulmonary edema but could be COVID. He remains on room air. Cough improving. He states his had COIVD recently. Since on room air, will hold on Decadron. Continue supportive care. Chest x-ray His suggesting atelectasis or pneumonia. Will start incentive spirometry. (5) Elevated digoxin level: Code(s): R78.89 - Finding of other specified substances, not normally found in blood Status: Acute Assessment and Plan: Digoxin has been stopped, as above, Per Cardiology recommendation. (6) Congestive heart failure: Code(s): I50.9 - Heart failure, unspecified Status: Acute Assessment and Plan: Euvolemic. Continue to use HD to control volume status as BP tolerates. Chest x-ray suggests more posterior right pleural effusion. Continue fluid removal during dialysis as tolerated. Management per Nephrology. (7) Atrial fibrillation with slow ventricular response: Code(s): I48.91 - Unspecified atrial fibrillation Status: Acute Assessment and Plan: Patient underwent HALEY with cardioversion 07/12 but back in AFib that evening. As above. Continue Eliquis. Monitor closely on tele. Follow-up cardiology evaluation. (8) Elevated troponin: Code(s): R77.8 - Other specified abnormalities of plasma proteins Status: Acute Assessment and Plan: Troponin elevated but flat. 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 Elevated Troponin related to above. (9) Transaminitis: Code(s): R74.01 - Elevation of levels of liver transaminase levels Status: Acute Assessment and Plan: Elevated LFTs noted and probably related to the bradycardia with hepatic congestion. Levels trending down. Bili elevated but all unconjugated so Gilbert's? probably. Follow up LFTs today. (10) End-stage renal disease on hemodialysis: Code(s): N18.6 - End stage renal disease; Z99.2 - Dependence on renal dialysis Status: Acute Assessment and Plan: Stable. HD MoWeFr. Continue renal diet. Nephrology consulted and appreciate their input. Continue HD per their recommendations. Kenneth
[2022-08-04 10:47] LABS: Folic Acid 10.8 ng/mL (2.76->20); Vitamin B12 > 1000.0 pg/mL (239-931)
[2022-08-04] MEDS: METOPROLOL SUCCINATE EXT REL 25 MG TABCR PO (11:04)
--- NOTE | 2022-08-04 12:46 | PM.PNNEP ---
Progress Note: A&P Assessment and Plan (1) End stage renal disease: Code(s): N18.6 - End stage renal disease Status: Chronic Assessment and Plan: HD tomorrow and continue M/W/ schedule follow electrolytes, volume status, and clearance (2) Bradycardia: Code(s): R00.1 - Bradycardia, unspecified Status: Acute Assessment and Plan: better if not resolved was on digoxin, amiodarone, and metoprolol [employer] these are currently on hold Cardiology following recommending metoprolol for rate control at this time (3) COVID-19: Code(s): U07.1 - COVID-19 Status: Acute Assessment and Plan: as noted by testing in ER on supplemental oxygen - wean as tolerated continue supportive therapy (4) Elevated digoxin level: Code(s): R78.89 - Finding of other specified substances, not normally found in blood Status: Acute Assessment and Plan: as noted on admission digoxin on hold Cardiology recommending not restarting... (5) Endocarditis: Code(s): I38 - Endocarditis, valve unspecified Status: Chronic Assessment and Plan: as discovered on last hospitalization on vancomcyin Will continue to follow. Subjective Date/time seen: 08/04/22 12:46 No new issues or problems to report at this time; he feels his breathing/respiratory status is stable; continues to work with PT/OT as tolerated; no other events overnight or earlier this AM voiced. Exam Narrative: General: WD/WN elderly male in NAD Heart: IRRR; normal S1 and S2; no rub Lungs: decreased at bases Abdomen: soft, nontender, nondistended, positive bowel sounds Extremities: no cyanosis or clubbing; no edema Skin: no rash or nodules Objective Data Vital Signs Vital Signs: Vital Signs Temp Pulse Resp BP Pulse Ox O2 Del Method 08/04/22 12:00 97.7 F 60 28 H 117/67 99 08/04/22 11:04 60 08/04/22 08:00 97.9 F 108 H 20 122/72 98 08/04/22 06:00 65 08/04/22 04:00 98 Room Air 08/04/22 04:00 70 08/04/22 04:00 98.6 F 70 20 116/84 98 08/04/22 02:00 63 08/04/22 00:00 90 Room Air 08/04/22 00:00 70 08/04/22 00:00 97.6 F 65 16 117/77 90 08/03/22 22:00 61 08/03/22 20:00 91 Room Air 08/03/22 20:00 54 L 08/03/22 20:00 97.5 F L 79 16 119/82 91 08/03/22 18:00 56 L Intake/Output Intake/Output: Intake & Output 08/01/22 08/02/22 08/03/22 08/04/22 23:59 23:59 23:59 23:59 Intake Total 480 1160 750 490 Output Total 600 3000 0 0 Balance -120 -1840 750 490 Meds/Results Medications: Active Medications Generic Name Dose Route Start Last Admin Trade Name Freq PRN Reason Stop Dose Admin Acetaminophen 650 mg 07/29/22 14:39 Acetaminophen 325 Mg Tablet PO Q4H PRN Mild Pain (1-3) or Fever Apixaban 2.5 mg 07/29/22 23:10 08/04/22 08:58 Apixaban 2.5 Mg Tablet PO 2.5 mg Q12HR YING Administration Calcitriol 0.25 mcg 07/30/22 09:00 08/04/22 08:58 Calcitriol 0.25 Mcg Capsule PO 0.25 mcg DAILY YING Administration Dextrose 12.5 gm 07/29/22 17:47 Dextrose 50% 25 Gm/50 Ml Syringe IV PUSH PRN PRN Hypoglycemia Protocol Folic Acid/Cyanocobalamin/pyridoxin 1 tab 08/04/22 09:30 08/04/22 11:04 Cyanocobalamin/Fa/Pyridoxine (Foltx) Tablet PO 1 tab QAM YING Administration Furosemide 80 mg 07/30/22 09:00 08/04/22 08:58 Furosemide 80 Mg Tablet PO 80 mg DAILY YING Administration Glucagon 1 mg 07/29/22 17:47 Glucagon For Inj 1 Mg Vial IM PRN PRN Hypoglycemia Protocol Glucose 15 gm 07/29/22 17:47 Glucose Oral Gel 15 Gm Of Glucse In 37.5 Gm Tube PO PRN PRN Hypoglycemia Protocol Dextrose 1,000 mls @ 100 mls/hr 07/29/22 17:47 Dextrose 5% 1,000 Ml IVPB PRN PRN Hypoglycemia Protocol Albumin Human 50 mls @ 999 mls/hr 07/31/22 07
--- NOTE | 2022-08-04 12:46 | P.PNNP_ITS ---
Progress Note: A&P Assessment and Plan (1) End stage renal disease: Code(s): N18.6 - End stage renal disease Status: Chronic Assessment and Plan: * HD tomorrow and continue M/W/ schedule * follow electrolytes, volume status, and clearance (2) Bradycardia: Code(s): R00.1 - Bradycardia, unspecified Status: Acute Assessment and Plan: * better if not resolved * was on digoxin, amiodarone, and metoprolol [employer] * these are currently on hold * Cardiology following * recommending metoprolol for rate control at this time (3) COVID-19: Code(s): U07.1 - COVID-19 Status: Acute Assessment and Plan: * as noted by testing in ER * on supplemental oxygen - wean as tolerated * continue supportive therapy (4) Elevated digoxin level: Code(s): R78.89 - Finding of other specified substances, not normally found in blood Status: Acute Assessment and Plan: * as noted on admission * digoxin on hold * Cardiology recommending not restarting... (5) Endocarditis: Code(s): I38 - Endocarditis, valve unspecified Status: Chronic Assessment and Plan: * as discovered on last hospitalization * on vancomcyin Will continue to follow. Subjective Date/time seen: 08/04/22 12:46 No new issues or problems to report at this time; he feels his breathing/resp iratory status is stable; continues to work with PT/OT as tolerated; no other events overnight or earlier this AM voiced. Exam Narrative: General: WD/WN elderly male in NAD Heart: IRRR; normal S1 and S2; no rub Lungs: decreased at bases Abdomen: soft, nontender, nondistended, positive bowel sounds Extremities: no cyanosis or clubbing; no edema Skin: no rash or nodules Objective Data Vital Signs Vital Signs: Vital Signs Temp Pulse Resp BP Pulse Ox O2 Del Method 08/04/22 12:00 97.7 F 60 28 H 117/67 99 08/04/22 11:04 60 08/04/22 08:00 97.9 F 108 H 20 122/72 98 08/04/22 06:00 65 08/04/22 04:00 98 Room Air 08/04/22 04:00 70 08/04/22 04:00 98.6 F 70 20 116/84 98 08/04/22 02:00 63 08/04/22 00:00 90 Room Air 08/04/22 00:00 70 08/04/22 00:00 97.6 F 65 16 117/77 90 08/03/22 22:00 61 08/03/22 20:00 91 Room Air 08/03/22 20:00 54 L 08/03/22 20:00 97.5 F L 79 16 119/82 91 08/03/22 18:00 56 L Intake/Output Intake/Output: Intake & Output 08/01/22 08/02/22 08/03/22 08/04/22 23:59 23:59 23:59 23:59 Intake Total 480 1160 750 490 Output Total 600 3000 0 0 Balance -120 -1840 750 490 Meds/Results Medications: Active Medications Generic Name Dose Route Start Last Admin Trade Name Freq PRN Reason Stop Dose Admin Acetaminophen 650 mg 07/29/22 14:39 Acetaminophen 325 Mg Tablet PO Q4H PRN Mild Pain (1-3) or Fever Apixaban 2.5 mg 07/29/22 23:10 08/04/22 08:58 Apixaban 2.5 Mg Tablet PO 2.5 mg Q12HR YING Administration Calcitriol 0.25 mcg 07/30/22 09:00 08/04/22 08:58 Calcitri
[2022-08-05] VITALS (21 sets, daily range): BP systolic 109–126; BP diastolic 58–85; PULSE 46–114; RESP 16–22; TEMP 36–37; O2SAT 91–98
[2022-08-05 04:24] LABS: Estimated CRCL calculation 8 ml/min; Estimated Glomerular Filt Rate 8
[2022-08-05] MEDS: METOPROLOL SUCCINATE EXT REL 25 MG TABCR PO (09:25)
[2022-08-05] MEDS: MIDODRINE HCL 10 MG TABLET PO ×3 (09:25→18:11)
[2022-08-05] MEDS: FUROSEMIDE 80 MG TABLET PO (09:25)
[2022-08-05] MEDS: calcitrioL 0.25 MCG CAPSULE PO (09:25)
[2022-08-05] MEDS: APIXABAN 2.5 MG TABLET PO ×2 (09:26→20:34)
[2022-08-05 10:06] LABS: Anion Gap 15 mmol/L (8-16); Blood Urea Nitrogen 40 mg/dL (9-20); Calcium 8.5 mg/dL (8.4-10.2); Carbon Dioxide 26 mmol/L (22-30); Chloride 95 mmol/L (98-107); Estimated CRCL calculation 8 ml/min; Estimated Glomerular Filt Rate 8; Glucose 92 mg/dL (65-110); Potassium 4.7 mmol/L (3.4-5.0); Sodium 136 mmol/L (137-145)
[2022-08-05 10:10] LABS: Hematocrit 35.9 % (42.0-52.0); Hemoglobin 11.4 g/dL (14.0-18.0); Mean Corpuscular HGB Conc 31.8 g/dl (32-36); Mean Corpuscular Hemoglobin 33.4 pg (26-34); Mean Corpuscular Volume 105.3 fl (80-100); Mean Platelet Volume 11.4 fl (7.4-10.4); Platelet Count Result 129 k/mm3 (150-375); Red Blood Count 3.41 M/mm3 (4.6-6.20); Red Cell Distribution Width 19.3 % (11.5-14.5); White Blood Count 9.6 K/mm3 (4.5-10.0)
--- NOTE | 2022-08-05 10:17 | P.PNIM_ITS ---
Progress Note: A&P Assessment and Plan (1) Endocarditis: Code(s): I38 - Endocarditis, valve unspecified Status: Chronic Assessment and Plan: Patient underwent HALEY with cardioversion 07/12. HALEY showing severe MR with possible small, hypermobile vegetation at the tip of the anterior leaflet of the mitral valve.? BCx were negative. 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 Vanco started on 07/12/22 with plans for treatment through 08/22/22. HALEY also showed severe MR. He will need to have this further evaluated and treated once he is done with his abx (2) Mitral regurgitation: Code(s): I34.0 - Nonrheumatic mitral (valve) insufficiency Status: Acute Assessment and Plan: Patient was diagnosis with severe mitral regurgitation on recent HALEY. 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 Estimated date of completion August 22, 2022. (3) Bradycardia: Code(s): R00.1 - Bradycardia, unspecified Status: Acute Assessment and Plan: Bradycardia appears to have resolved with heart rates in the 60s.Patient was previously discharged on Amiodarone, digoxin and metoprolol on 07/16. Due to persistent bradycardia, they were appropriately being held on admission.. He was initially found to have bradycardia during HD and sent to the ER for this reason. Digoxin level was elevated. [place] bradycardia related to dig toxicity and his other medications. These mediations have been stopped. HR slowly improving to 100-110s on 08/04, he was restarted on metoprolol per Cardiology recommendation. (4) COVID-19: Code(s): U07.1 - COVID-19 Status: Acute Assessment and Plan: CXR on admission showing some mild pulmonary edema but could be COVID. He remains on room air. Cough improving. He states his had COIVD recently. Since on room air, will hold on Decadron. Continue supportive care. Chest x-ray His suggesting atelectasis or pneumonia. Continue incentive spirometry. (5) Elevated digoxin level: Code(s): R78.89 - Finding of other specified substances, not normally found in blood Status: Acute Assessment and Plan: Digoxin has been stopped, as above, Per Cardiology recommendation. (6) Congestive heart failure: Code(s): I50.9 - Heart failure, unspecified Status: Acute Assessment and Plan: Euvolemic. Continue to use HD to control volume status as BP tolerates. Chest x-ray suggests more posterior right pleural effusion. Continue fluid removal during dialysis as tolerated. Management per Nephrology. (7) Atrial fibrillation with slow ventricular response: Code(s): I48.91 - Unspecified atrial fibrillation Status: Acute Assessment and Plan: Patient underwent HALEY with cardioversion 07/12 but back in AFib that evening. As above. Continue Eliquis. Monitor closely on tele. Follow-up cardiology evaluation. continue metoprolol. (8) Elevated troponin: Code(s): R77.8 - Other specified abnormalities of plasma proteins Status: Acute Assessment and Plan: Troponin elevated but flat. 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 Elevated Troponin related to above. (9) Transaminitis: Code(s): R74.01 - Elevation of levels of liver transaminase levels Status: Acute Assessment and Plan: Elevated LFTs noted and probably related to the bradycardia with hepatic congestion. Levels trending down. Bili elevated but all unco
[2022-08-05] MEDS: VITAMIN B CMPLX/VIT C/FOLIC AC 1 CAPSULE 1 CAP PO (12:45)
--- NOTE | 2022-08-05 14:26 | PCOTNOTE ---
Attempted to see patient for OT. Therapist walked into room into safe space and patient reported having a poor morning with PT and unsure if he's to go to dialysis later today. Patient not agreeable to bathing or UE exercises, requested therapist work with patient tomorrow. Therapist stressed importance of participating in therapy, as plan is for rehab to get stronger to go back home. Patient continued to decline, will continue plan of care for OT 08/06/22.
[2022-08-05] MEDS: SODIUM CHLORIDE 0.9% IV 1,000 ML 999 ML IV CONT (17:31)
--- NOTE | 2022-08-05 17:40 | P.PNNP_ITS ---
Progress Note: A&P Assessment and Plan (1) End stage renal disease: Code(s): N18.6 - End stage renal disease Status: Chronic Assessment and Plan: * HD later today * volume status looks okay * electrolytes look okay (2) Bradycardia: Code(s): R00.1 - Bradycardia, unspecified Status: Acute Assessment and Plan: * better if not resolved * was on digoxin, amiodarone, and metoprolol [employer] * these are currently on hold * Cardiology following * recommending metoprolol for rate control at this time (3) COVID-19: Code(s): U07.1 - COVID-19 Status: Acute Assessment and Plan: * as noted by testing in ER * on supplemental oxygen - wean as tolerated * continue supportive therapy * symptoms of this are improving. (4) Elevated digoxin level: Code(s): R78.89 - Finding of other specified substances, not normally found in blood Status: Acute Assessment and Plan: * as noted on admission * His level was 2 at the dialysis unit last week. That was on 0.125 3 times a week * digoxin on hold * Cardiology recommending not restarting. large dose amiodarone and metoprolol would not control his pulse last admission. (5) Endocarditis: Code(s): I38 - Endocarditis, valve unspecified Status: Chronic Assessment and Plan: * as discovered on last hospitalization * on vancomcyin Will continue to follow. Subjective Date/time seen: 08/05/22 08:10 Interval history: Late entry Elias is feeling better today. He gets a little confused about what time it is. He thought it was 8:00 p.m. last night instead of 8am this morning. Exam Narrative: General: WD/WN elderly male in NAD Heart: IRRR; normal S1 and S2; no rub or gallop Lungs: decreased at bases Abdomen: soft, nontender, nondistended, positive bowel sounds Extremities: no edema Skin: no rash or nodules Objective Data Vital Signs Vital Signs: Vital Signs - 24 hr 08/04/22 18:00 08/04/22 20:00 08/05/22 00:00 Temperature 97.7 F 97.8 F Pulse Rate 57 L 55 L 63 Respiratory Rate 30 H 22 H Blood Pressure 122/65 110/85 Pulse Oximetry 95 92 Oxygen Delivery 08/04/22 20:00 08/04/22 20:00 08/05/22 02:00 Temperature Pulse Rate 66 60 Respiratory Rate Blood Pressure Pulse Oximetry 92 Oxygen Delivery Room Air 08/05/22 00:00 08/05/22 04:00 08/05/22 08:00 Temperature 98.6 F Pulse Rate 53 L 58 L 62 Respiratory Rate 22 H Blood Pressure 118/64 Pulse Oximetry 93 Oxygen Delivery 08/05/22 08:00 08/05/22 08:00 08/05/22 12:00 Temperature Pulse Rate 47 L 114 H Respiratory Rate Blood Pressure Pulse Oximetry Oxygen Delivery Room Air 08/05/22 12:00 08/05/22 17:12 08/05/22 17:00 Temperature 97.8 F 98 F Pulse Rate 53 L 78 66 Respiratory Rate 20 18 Blood Pressure 118/64 122/79 122/58 L Pulse Oximetry 93 Oxygen Delivery 08/05/22 16:00 08/05/22 17:30 Temperature 97.8 F Pulse Rate 46 L 64 Resp
--- NOTE | 2022-08-05 17:40 | PM.PNNEP ---
Progress Note: A&P Assessment and Plan (1) End stage renal disease: Code(s): N18.6 - End stage renal disease Status: Chronic Assessment and Plan: HD later today volume status looks okay electrolytes look okay (2) Bradycardia: Code(s): R00.1 - Bradycardia, unspecified Status: Acute Assessment and Plan: better if not resolved was on digoxin, amiodarone, and metoprolol [employer] these are currently on hold Cardiology following recommending metoprolol for rate control at this time (3) COVID-19: Code(s): U07.1 - COVID-19 Status: Acute Assessment and Plan: as noted by testing in ER on supplemental oxygen - wean as tolerated continue supportive therapy symptoms of this are improving. (4) Elevated digoxin level: Code(s): R78.89 - Finding of other specified substances, not normally found in blood Status: Acute Assessment and Plan: as noted on admission His level was 2 at the dialysis unit last week. That was on 0.125 3 times a week digoxin on hold Cardiology recommending not restarting. large dose amiodarone and metoprolol would not control his pulse last admission. (5) Endocarditis: Code(s): I38 - Endocarditis, valve unspecified Status: Chronic Assessment and Plan: as discovered on last hospitalization on vancomcyin Will continue to follow. Subjective Date/time seen: 08/05/22 08:10 Interval history: Late entry Elias is feeling better today. He gets a little confused about what time it is. He thought it was 8:00 p.m. last night instead of 8am this morning. Exam Narrative: General: WD/WN elderly male in NAD Heart: IRRR; normal S1 and S2; no rub or gallop Lungs: decreased at bases Abdomen: soft, nontender, nondistended, positive bowel sounds Extremities: no edema Skin: no rash or nodules Objective Data Vital Signs Vital Signs: Vital Signs - 24 hr 08/04/22 18:00 08/04/22 20:00 08/05/22 00:00 Temperature 97.7 F 97.8 F Pulse Rate 57 L 55 L 63 Respiratory Rate 30 H 22 H Blood Pressure 122/65 110/85 Pulse Oximetry 95 92 Oxygen Delivery 08/04/22 20:00 08/04/22 20:00 08/05/22 02:00 Temperature Pulse Rate 66 60 Respiratory Rate Blood Pressure Pulse Oximetry 92 Oxygen Delivery Room Air 08/05/22 00:00 08/05/22 04:00 08/05/22 08:00 Temperature 98.6 F Pulse Rate 53 L 58 L 62 Respiratory Rate 22 H Blood Pressure 118/64 Pulse Oximetry 93 Oxygen Delivery 08/05/22 08:00 08/05/22 08:00 08/05/22 12:00 Temperature Pulse Rate 47 L 114 H Respiratory Rate Blood Pressure Pulse Oximetry Oxygen Delivery Room Air 08/05/22 12:00 08/05/22 17:12 08/05/22 17:00 Temperature 97.8 F 98 F Pulse Rate 53 L 78 66 Respiratory Rate 20 18 Blood Pressure 118/64 122/79 122/58 L Pulse Oximetry 93 Oxygen Delivery 08/05/22 16:00 08/05/22 17:30 Temperature 97.8 F Pulse Rate 46 L 64 Respiratory Rate 18 Blood Pressure 115/73 123/84 Pulse Oximetry 91 Oxygen Delivery Intake/Output Intake/Output: Intake & Output 08/02/22 08/03/22 08/04/22 08/05/22 23:59 23:59 23:59 23:59 Intake Total 1160 750 690 990 Output Total 3000 0 0 0 Balance -1840 750 690 990 Meds/Results Medications: Active Medications Generic Name Dose Route Start Last Admin Trade Name Freq PRN Reason Stop Dose Admin Acetaminophen 650 mg 07/29/22 14:39 Acetaminophen 325 Mg Tablet PO Q4H PRN Mild Pain (1-3) or Fever Apixaban 2.5 mg 07/29/22 23:10 08/05/22 09:26 Apixaban 2.5 Mg Tablet PO 2.5 mg Q12HR YING Administration Calcitriol 0.25 mcg 07/30/22 09:00 08/05/22 09:25 Calcitriol 0.25 Mcg Capsule PO 0.25 mcg DAILY YING Administration Dextrose 12.5 gm 07/29/22 17:47 Dextrose 50% 25 Gm/50 Ml Syringe IV PUSH PRN PRN Hypoglycemia Protocol Furosemide 80 mg 07/30/22 09:00
[2022-08-05 19:48] LABS: Vancomycin Random 9.3 ug/mL (10-20)
--- NOTE | 2022-08-05 20:30 | PC.NURSE ---
Patient back from dialysis in room 231.
[2022-08-06] VITALS (10 sets, daily range): BP systolic 105–110; BP diastolic 60–82; PULSE 44–71; RESP 15–20; TEMP 35.9–36.9; O2SAT 92–100
[2022-08-06] MEDS: APIXABAN 2.5 MG TABLET PO ×2 (08:42→21:22)
[2022-08-06] MEDS: MIDODRINE HCL 10 MG TABLET PO ×3 (08:42→16:21)
[2022-08-06] MEDS: calcitrioL 0.25 MCG CAPSULE PO (08:43)
[2022-08-06] MEDS: VITAMIN B CMPLX/VIT C/FOLIC AC 1 CAPSULE 1 CAP PO (08:43)
[2022-08-06] MEDS: FUROSEMIDE 80 MG TABLET PO (08:44)
--- NOTE | 2022-08-06 08:44 | PM.PNNEP ---
Progress Note: A&P Assessment and Plan (1) End stage renal disease: Code(s): N18.6 - End stage renal disease Status: Chronic Assessment and Plan: HD Went well yesterday. He looks a little dehydrated to me. He says he is eating. He is thirsty and drinks soda. Water seems to make him more thirsty. Will not remove fluid on dialysis tomorrow. The patient has a peritoneal dialysis catheter in. This is going to come out when he got an access in his arm however it is turning out that is going to take a long time for him to get access because of his cardiac issues. So will see if we can get the PD catheter out while here. 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 (4) Elevated digoxin level: Code(s): R78.89 - Finding of other specified substances, not normally found in blood Status: Acute Assessment and Plan: as noted on admission His level was 2 at the dialysis unit last week. That was on 0.125 3 times a week digoxin on hold Cardiology recommending not restarting. large dose amiodarone and metoprolol would not control his pulse last admission. So far metoprolol 25 is controlling his rate. (5) Endocarditis: Code(s): I38 - Endocarditis, valve unspecified Status: Chronic Assessment and Plan: as discovered on last hospitalization on vancomcyin (6) Confusion: Code(s): R41.0 - Disorientation, unspecified Status: Acute Assessment and Plan: he is getting well dialyzed. Electrolytes looked okay yesterday. Will repeat these today. He is not on any medicines that do this. Will check an MRI of the brain just to be sure there is nothing else going on. Will also check a CBC to be shows no infection going on. He has COVID which I suppose could do this as well. His oxygenation is okay. Subjective Date/time seen: 08/06/22 08:44 Interval history: Patient has been hallucinating the last couple of nights he says. He is thinking clearly today. He recognizes me, he knows at [facility]. He is getting worried that he is not going to get better. Exam Narrative: General: WD/WN elderly male in NAD mouth: Mucous membranes are dry Heart: IRRR; normal S1 and S2; no rub or gallop Lungs: decreased at bases Abdomen: soft, nontender, nondistended, positive bowel sounds Extremities: no edema Skin: no rash or nodules Neuro: Alert and oriented x3. No focal deficits. Objective Data Vital Signs Vital Signs: Vital Signs - 24 hr 08/05/22 12:00 08/05/22 12:00 08/05/22 17:12 Temperature 97.8 F Pulse Rate 114 H 53 L 78 Respiratory Rate 20 Blood Pressure 118/64 122/79 Pulse Oximetry 93 Oxygen Delivery 08/05/22 17:00 08/05/22 16:00 08/05/22 17:30 Temperature 98 F 97.8 F Pulse Rate 66 46 L 64 Respiratory Rate 18 18 Blood Pressure 122/58 L 115/73 123/84 Pulse Oximetry 91 Oxygen Delivery 08/05/22 17:50 08/05/22 18:10 08/05/22 16:00 Temperature Pulse Rate 75 72 52 L Respiratory Rate Blood Pressure 117/81 123/75 Pulse Oximetry Oxygen Delivery 08/05/22 18:30 08/05/22 18:50 08/05/22 19:10 Temperature Pulse Rate 62 95 75 Respiratory Rate Blood Pressure 111/71 109/78 119/69 Pulse Oximetry Oxygen Delivery 08/05/22 19:30 08/05/22 19:50 08/05/22 20:12 Temperature Pulse Rate 64 73 65 Respiratory Rate Blood Pressure 120/81 111/65 110/76 Pulse Oximetry Oxygen Delivery 08/05/22
[2022-08-06 10:48] LABS: Basophils Absolute Auto 0.1 K/mm3 (0.0-0.1); Basophils Percent Auto 0.8 % (0.2-1.2); Eosinophils Absolute Auto 0.1 K/mm3 (0-0.3); Hematocrit 35.8 % (42.0-52.0); Hemoglobin 11.6 g/dL (14.0-18.0); Immature Granulocyte Absolute 0.11 K/mm3 (0.00-0.031); Immature Granulocyte Percent A 1.1 % (0-0.5); Lymphocytes Absolute Auto 0.79 K/mm3 (0.9-3.2); Lymphocytes Percent Auto 7.6 % (18.3-44.2); Mean Corpuscular HGB Conc 32.4 g/dl (32-36); Mean Corpuscular Hemoglobin 33.5 pg (26-34); Mean Corpuscular Volume 103.5 fl (80-100); Monocytes Absolute Auto 0.6 K/mm3 (0.1-0.6); Monocytes Percent Auto 6.2 % (2.6-8.5); Neutrophils Absolute Auto 8.7 K/mm3 (1.3-6.7); Neutrophils Percent Auto 83.3 % (45.5-73.1); Platelet Count Result 109 k/mm3 (150-375); Red Blood Count 3.46 M/mm3 (4.6-6.20); Red Cell Distribution Width 18.6 % (11.5-14.5); White Blood Count 10.4 K/mm3 (4.5-10.0)
[2022-08-06 10:56] LABS: Ammonia < 9 umol/L (9-30)
[2022-08-06 11:15] LABS: Alanine Aminotransferase 75 U/L (6-50); Albumin Level 3.1 g/dL (3.5-5.1); Alkaline Phosphatase 66 U/L (38-126); Anion Gap 9 mmol/L (8-16); Aspartate Amino Transferase 94 U/L (17-59); Bilirubin,Total 2.8 mg/dL (0.2-1.3); Blood Urea Nitrogen 27 mg/dL (9-20); Calcium 8.1 mg/dL (8.4-10.2); Carbon Dioxide 30 mmol/L (22-30); Chloride 96 mmol/L (98-107); Estimated CRCL calculation 11 ml/min; Estimated Glomerular Filt Rate 12; Glucose 103 mg/dL (65-110); Potassium 3.7 mmol/L (3.4-5.0); Sodium 135 mmol/L (137-145)
[2022-08-06 12:12] LABS: Anion Gap 9 mmol/L (8-16); Blood Urea Nitrogen 29 mg/dL (9-20); Carbon Dioxide 29 mmol/L (22-30); Chloride 96 mmol/L (98-107); Estimated CRCL calculation 11 ml/min; Estimated Glomerular Filt Rate 13; Glucose 104 mg/dL (65-110); Potassium 3.7 mmol/L (3.4-5.0); Sodium 134 mmol/L (137-145)
[2022-08-06 12:17] LABS: Vitamin B12 > 1000.0 pg/mL (239-931)
--- NOTE | 2022-08-06 18:10 | PM.IMPN ---
Progress Note: A&P Assessment and Plan (1) Endocarditis: Code(s): I38 - Endocarditis, valve unspecified Status: Chronic Assessment and Plan: Patient underwent HALEY with cardioversion 07/12. HALEY showing severe MR with possible small, hypermobile vegetation at the tip of the anterior leaflet of the mitral valve.? BCx were negative. 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 Vanco started on 07/12/22 with plans for treatment through 08/22/22. HALEY also showed severe MR. He will need to have this further evaluated and treated once he is done with his abx (2) Mitral regurgitation: Code(s): I34.0 - Nonrheumatic mitral (valve) insufficiency Status: Acute Assessment and Plan: Patient was diagnosis with severe mitral regurgitation on recent HALEY. 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 Estimated date of completion August 22, 2022. (3) Bradycardia: Code(s): R00.1 - Bradycardia, unspecified Status: Acute Assessment and Plan: Bradycardia appears to have resolved with heart rates in the 60s.Patient was previously discharged on Amiodarone, digoxin and metoprolol on 07/16. Due to persistent bradycardia, they were appropriately being held on admission.. He was initially found to have bradycardia during HD and sent to the ER for this reason. Digoxin level was elevated. [place] bradycardia related to dig toxicity and his other medications. These mediations have been stopped. HR slowly improving to 100-110s on 08/04, he was restarted on metoprolol per Cardiology recommendation. (4) COVID-19: Code(s): U07.1 - COVID-19 Status: Acute Assessment and Plan: CXR on admission showing some mild pulmonary edema but could be COVID. He remains on room air. Cough improving. He states his had COIVD recently. Since on room air, will hold on Decadron. Continue supportive care. Chest x-ray His suggesting atelectasis or pneumonia. Continue incentive spirometry. (5) Elevated digoxin level: Code(s): R78.89 - Finding of other specified substances, not normally found in blood Status: Acute Assessment and Plan: Digoxin has been stopped, as above, Per Cardiology recommendation. (6) Congestive heart failure: Code(s): I50.9 - Heart failure, unspecified Status: Acute Assessment and Plan: Euvolemic. Continue to use HD to control volume status as BP tolerates. Chest x-ray suggests more posterior right pleural effusion. Continue fluid removal during dialysis as tolerated. Management per Nephrology. (7) Atrial fibrillation with slow ventricular response: Code(s): I48.91 - Unspecified atrial fibrillation Status: Acute Assessment and Plan: Patient underwent HALEY with cardioversion 07/12 but back in AFib that evening. As above. Continue Eliquis. Monitor closely on tele. Follow-up cardiology evaluation. continue metoprolol. (8) Elevated troponin: Code(s): R77.8 - Other specified abnormalities of plasma proteins Status: Acute Assessment and Plan: Troponin elevated but flat. 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 Elevated Troponin related to above. (9) Transaminitis: Code(s): R74.01 - Elevation of levels of liver transaminase levels Status: Acute Assessment and Plan: Elevated LFTs noted and probably related to the bradycardia with hepatic congestion. Levels trending down. Bili elevated but all unconjugated so Gilbert's? probably. Follow up LFTs today. (10) End-stage renal disease on hemodialysis: Code(s): N18.6 - End stage renal disease; Z99.2 - Dependence on renal dialysis Status: Acute Assessment and Plan: Stable. HD MoWeFr. Continue renal diet. Nephrology consulted and appreciate their input. Continue HD per their re
--- NOTE | 2022-08-06 21:31 | PC.NURSE ---
This patient, Elias Aguirre, was transferred to [[id number]] on 08/06/22 at 2120. Personal belongings sent with patient. Appropriate documentation sent with patient.
[2022-08-07] VITALS (22 sets, daily range): BP systolic 90–169; BP diastolic 53–103; PULSE 46–108; RESP 16–20; TEMP 35.8–36.8; O2SAT 93–97
[2022-08-07 06:44] LABS: Hemoglobin 12.3 g/dL (14.0-18.0); Mean Corpuscular HGB Conc 31.5 g/dl (32-36); Mean Corpuscular Hemoglobin 33.3 pg (26-34); Mean Corpuscular Volume 105.7 fl (80-100); Mean Platelet Volume 11.5 fl (7.4-10.4); Platelet Count Result 116 k/mm3 (150-375); Red Blood Count 3.69 M/mm3 (4.6-6.20); Red Cell Distribution Width 18.8 % (11.5-14.5); White Blood Count 10.8 K/mm3 (4.5-10.0)
[2022-08-07 06:56] LABS: Alanine Aminotransferase 82 U/L (6-50); Albumin Level 3.2 g/dL (3.5-5.1); Alkaline Phosphatase 73 U/L (38-126); Anion Gap 11 mmol/L (8-16); Aspartate Amino Transferase 104 U/L (17-59); Bilirubin,Total 2.9 mg/dL (0.2-1.3); Blood Urea Nitrogen 37 mg/dL (9-20); Calcium 8.2 mg/dL (8.4-10.2); Carbon Dioxide 26 mmol/L (22-30); Chloride 101 mmol/L (98-107); Estimated CRCL calculation 9 ml/min; Estimated Glomerular Filt Rate 9; Glucose 81 mg/dL (65-110); Magnesium 2.2 mg/dL (1.6-2.3); Phosphorus 4.3 mg/dL (2.5-4.5); Potassium 3.8 mmol/L (3.4-5.0); Sodium 138 mmol/L (137-145)
[2022-08-07] MEDS: MIDODRINE HCL 10 MG TABLET PO (09:24)
[2022-08-07] MEDS: calcitrioL 0.25 MCG CAPSULE PO (09:24)
[2022-08-07] MEDS: FUROSEMIDE 80 MG TABLET PO (09:24)
[2022-08-07] MEDS: APIXABAN 2.5 MG TABLET PO ×2 (09:24→21:02)
--- NOTE | 2022-08-07 09:24 | PCNWS ---
Weekly nutritional screen. Patient is tolerating Renal Dialysis/DBCC diet. States his appetite has improved, he refused diet supplements. States to no weight loss. No nutritional needs at this time.
[2022-08-07] MEDS: VITAMIN B CMPLX/VIT C/FOLIC AC 1 CAPSULE 1 CAP PO (09:25)
--- NOTE | 2022-08-07 13:18 | PCOTNOTE ---
Attempted to see pt for occupational therapy treatment today. 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 Will continue per poc duration/frequency tomorrow.
--- NOTE | 2022-08-07 17:39 | PM.PNNEP ---
Progress Note: A&P Assessment and Plan (1) End stage renal disease: Code(s): N18.6 - End stage renal disease Status: Chronic Assessment and Plan: hemodialysis due today He looks a little dehydrated to me. He says he is eating. He is thirsty and drinks soda. Water seems to make him more thirsty. Will not remove fluid on dialysis tomorrow. The patient has a peritoneal dialysis catheter in. I talked with surgery about it. They can pull it out when he is finished with COVID. He is on apixaban as well and this would have to be held before he has it removed as well. 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 (4) Elevated digoxin level: Code(s): R78.89 - Finding of other specified substances, not normally found in blood Status: Acute Assessment and Plan: as noted on admission His level was 2 at the dialysis unit last week. That was on 0.125 3 times a week digoxin discontinued. (5) Endocarditis: Code(s): I38 - Endocarditis, valve unspecified Status: Chronic Assessment and Plan: as discovered on last hospitalization on vancomcyin (6) Confusion: Code(s): R41.0 - Disorientation, unspecified Status: Acute Assessment and Plan: he is getting well dialyzed. Electrolytes looked okay yesterday. Will repeat these today. He is not on any medicines that do this. Will check an MRI of the brain just to be sure there is nothing else going on. Will also check a CBC to be shows no infection going on. He has COVID which I suppose could do this as well. His oxygenation is okay. Subjective Date/time seen: 08/07/22 07:40 Interval history: Hallucinations are gone now. He is thinking clearly today. He wants to go home. He thinks he can do better there. Exam Narrative: General: WD/WN elderly male in NAD mouth: Mucous membranes are dry Heart: IRRR; normal S1 and S2; no rub or gallop Lungs: Fairly clear Abdomen: soft, nontender, nondistended, positive bowel sounds Extremities: no edema Skin: no rash or nodules Neuro: Alert and oriented x3. No focal deficits. Objective Data Vital Signs Vital Signs: Vital Signs - 24 hr 08/06/22 21:20 08/06/22 21:56 08/06/22 22:12 Temperature 98.5 F Pulse Rate 44 L 58 L 61 Respiratory Rate 18 20 Blood Pressure 107/82 Pulse Oximetry 100 92 Oxygen Delivery Room Air 08/07/22 00:00 08/07/22 04:00 08/07/22 05:36 Temperature 98 F Pulse Rate 47 L 57 L 108 H Respiratory Rate 20 Blood Pressure 103/66 Pulse Oximetry 97 Oxygen Delivery 08/07/22 09:30 08/07/22 08:00 08/07/22 08:00 Temperature 96.5 F L Pulse Rate 65 65 Respiratory Rate 18 Blood Pressure 169/71 H Pulse Oximetry 93 Oxygen Delivery Room Air 08/07/22 12:00 08/07/22 12:43 08/07/22 13:00 Temperature Pulse Rate 62 52 L 86 Respiratory Rate Blood Pressure 114/77 131/82 Pulse Oximetry Oxygen Delivery 08/07/22 13:20 08/07/22 13:40 08/07/22 12:35 Temperature 98.3 F Pulse Rate 51 L 51 L 54 L Respiratory Rate 16 Blood Pressure 147/103 H 99/61 L 121/77 Pulse Oximetry Oxygen Delivery 08/07/22 14:00 08/07/22 14:20 08/07/22 14:40 Temperature Pulse Rate 58 L 55 L 65 Respiratory Rate Blood Pressure 104/72 151/69 H 95/53 L Pulse Oximetry Oxygen Delivery 08/07/22 15:00 08/07/22 15:22 08/07/22 15:40 Temperature Pulse Rate 62 54 L 59 L Respirator
--- NOTE | 2022-08-07 19:18 | PM.IMPN ---
Progress Note: A&P Assessment and Plan (1) Confusion: Code(s): R41.0 - Disorientation, unspecified Status: Acute Assessment and Plan: Patient mildly confused. Hallucinations are more associated with confusion then true hallucinations. MRI brain showing no acute findings. Probably confusion related to mild dementia. Follo (2) Endocarditis: Code(s): I38 - Endocarditis, valve unspecified Status: Chronic Assessment and Plan: Patient underwent HALEY with cardioversion 07/12. HALEY showing severe MR with possible small, hypermobile vegetation at the tip of the anterior leaflet of the mitral valve.? BCx were negative. 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 Vanco started on 07/12/22 with plans for treatment through 08/22/22. HALEY also showed severe MR. He will need to have this further evaluated and treated once he is done with his abx (3) Mitral regurgitation: Code(s): I34.0 - Nonrheumatic mitral (valve) insufficiency Status: Acute Assessment and Plan: Patient was diagnosis with severe mitral regurgitation on recent HALEY. 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 Estimated date of completion August 22, 2022. (4) Bradycardia: Code(s): R00.1 - Bradycardia, unspecified Status: Acute Assessment and Plan: He was initially found to have bradycardia during HD and sent to the ER for this reason. Patient was previously discharged on Amiodarone, digoxin and metoprolol on 07/16. Due to persistent bradycardia, they were appropriately being held on admission. Bradycardia appears to have resolved with heart rates in the 60s. Digoxin level was elevated. [place] bradycardia related to dig toxicity and his other medications. HR slowly improving to 50-60s. Remains off Amiodarone, digoxin and metoprolol. Continue to monitor on tele (5) COVID-19: Code(s): U07.1 - COVID-19 Status: Acute Assessment and Plan: CXR on admission showing some mild pulmonary edema but could be COVID. He remains on room air. Cough improving. He states his had COIVD recently. Since on room air, will hold on Decadron. Continue supportive care. Continue incentive spirometry. (6) Elevated digoxin level: Code(s): R78.89 - Finding of other specified substances, not normally found in blood Status: Acute Assessment and Plan: Digoxin has been stopped, as above, Per Cardiology recommendation. (7) Congestive heart failure: Code(s): I50.9 - Heart failure, unspecified Status: Acute Assessment and Plan: Euvolemic. Chest x-ray suggests more posterior right pleural effusion. Continue fluid removal during dialysis as tolerated. Management per Nephrology. (8) Atrial fibrillation with slow ventricular response: Code(s): I48.91 - Unspecified atrial fibrillation Status: Acute Assessment and Plan: Patient underwent HALEY with cardioversion 07/12 but back in AFib that evening. As above. Continue Eliquis. Monitor closely on tele. Follow-up cardiology evaluation. (9) Elevated troponin: Code(s): R77.8 - Other specified abnormalities of plasma proteins Status: Acute Assessment and Plan: Troponin elevated but flat. 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 Elevated Troponin related to above. (10) Transaminitis: Code(s): R74.01 - Elevation of levels of liver transaminase levels Status: Acute Assessment and Plan: Elevated LFTs noted and probably related to the bradycardia with hepatic congestion. Levels trending down. Bili elevated but all unconjugated so Gilbert's? probably. Abd US showing cirrhosis and small amount of sludge in the GB. Follow (11) End-stage renal disease on hemodialysis: Code(s): N18.6 - End stage renal disease; Z99.2 - D
[2022-08-07 21:17] LABS: Vancomycin Random 22.4 ug/mL (10-20)
[2022-08-08] VITALS (9 sets, daily range): BP systolic 101–110; BP diastolic 60–62; PULSE 47–94; RESP 16–18; TEMP 36.6–36.7; O2SAT 94–98
--- NOTE | 2022-08-08 07:25 | PM.PNNEP ---
Progress Note: A&P Assessment and Plan (1) End stage renal disease: Code(s): N18.6 - End stage renal disease Status: Chronic Assessment and Plan: hemodialysis done yesterday. He tolerated the procedure well. Intake is not very good. (2) Bradycardia: Code(s): R00.1 - Bradycardia, unspecified Status: Acute Assessment and Plan: Pulse 50s and 70s. Once it was 94. Currently on metoprolol only. Cardiology following (3) COVID-19: Code(s): U07.1 - COVID-19 Status: Acute Assessment and Plan: as noted by testing in ER He has been on room air. continue supportive therapy The respiratory isolation timed out (4) Elevated digoxin level: Code(s): R78.89 - Finding of other specified substances, not normally found in blood Status: Acute Assessment and Plan: digoxin discontinued. (5) Endocarditis: Code(s): I38 - Endocarditis, valve unspecified Status: Chronic Assessment and Plan: as discovered on last hospitalization on vancomcyin (6) Confusion: Code(s): R41.0 - Disorientation, unspecified Status: Acute Assessment and Plan: Patient is disoriented off and on. MRI negative He is getting well dialyzed. Electrolytes have been okay. Ammonia is normal. He has never retained CO2. Oxygenation is fine. B12 folate and TSH are all okay. White cell count is okay. He is not on any medicines that do this. Will check blood culture In case he has an occult infection since he has a catheter Subjective Date/time seen: 08/08/22 07:25 Interval history: He is confused now. He feels like he was out in about last night and having stuff done to his face. A bit restless today. No chest pain or shortness of breath. Exam Narrative: General: WD/WN elderly male in NAD mouth: Mucous membranes are less dry Heart: IRRR; normal S1 and S2; no rub or gallop Lungs: Fairly clear Abdomen: soft, nontender, nondistended, positive bowel sounds Extremities: no edema or cyanosis Skin: no rash or nodules Neuro: Alert and oriented x3. No focal deficits. Objective Data Vital Signs Vital Signs: Vital Signs - 24 hr 08/07/22 09:30 08/07/22 08:00 08/07/22 08:00 Temperature 96.5 F L Pulse Rate 65 65 Respiratory Rate 18 Blood Pressure 169/71 H Pulse Oximetry 93 Oxygen Delivery Room Air 08/07/22 12:00 08/07/22 12:43 08/07/22 13:00 Temperature Pulse Rate 62 52 L 86 Respiratory Rate Blood Pressure 114/77 131/82 Pulse Oximetry Oxygen Delivery 08/07/22 13:20 08/07/22 13:40 08/07/22 12:35 Temperature 98.3 F Pulse Rate 51 L 51 L 54 L Respiratory Rate 16 Blood Pressure 147/103 H 99/61 L 121/77 Pulse Oximetry Oxygen Delivery 08/07/22 14:00 08/07/22 14:20 08/07/22 14:40 Temperature Pulse Rate 58 L 55 L 65 Respiratory Rate Blood Pressure 104/72 151/69 H 95/53 L Pulse Oximetry Oxygen Delivery 08/07/22 15:00 08/07/22 15:22 08/07/22 15:40 Temperature Pulse Rate 62 54 L 59 L Respiratory Rate Blood Pressure 90/63 L 95/64 L 90/56 L Pulse Oximetry Oxygen Delivery 08/07/22 15:44 08/07/22 15:54 08/07/22 15:56 Temperature 98.1 F 98.1 F Pulse Rate 79 76 76 Respiratory Rate 16 16 Blood Pressure 119/82 124/76 124/76 Pulse Oximetry Oxygen Delivery 08/07/22 16:00 08/08/22 00:00 08/07/22 20:00 Temperature 98.1 F Pulse Rate 55 L 94 46 L Respiratory Rate 16 Blood Pressure 110/62 Pulse Oximetry 94 Oxygen Delivery 08/08/22 00:00 08/08/22 04:00 Temperature Pulse Rate 55 L 51 L Respiratory Rate Blood Pressure Pulse Oximetry Oxygen Delivery Intake/Output Intake/Output: Intake & Output 08/05/22 08/06/22 08/07/22 08/08/22 23:59 23:59 23:59 23:59 Intake Total 990 150 680 Output Total 1999 0 Balance -1010 149 -1320 0 Meds/Results Medicati
[2022-08-08 08:26] LABS: Hematocrit 43.1 % (42.0-52.0); Hemoglobin 13.6 g/dL (14.0-18.0); Immature Platelet Fraction Pct 8.1 % (0.9-11.2); Mean Corpuscular HGB Conc 31.6 g/dl (32-36); Mean Corpuscular Hemoglobin 33.9 pg (26-34); Mean Corpuscular Volume 107.5 fl (80-100); Mean Platelet Volume 11.5 fl (7.4-10.4); Platelet Count Result 119 k/mm3 (150-375); Red Blood Count 4.01 M/mm3 (4.6-6.20); White Blood Count 9.4 K/mm3 (4.5-10.0)
[2022-08-08 08:40] LABS: Anion Gap 11 mmol/L (8-16); Blood Urea Nitrogen 23 mg/dL (9-20); Calcium 8.3 mg/dL (8.4-10.2); Carbon Dioxide 28 mmol/L (22-30); Chloride 97 mmol/L (98-107); Estimated CRCL calculation 13 ml/min; Estimated Glomerular Filt Rate 15; Glucose 70 mg/dL (65-110); Potassium 3.5 mmol/L (3.4-5.0); Sodium 136 mmol/L (137-145)
--- NOTE | 2022-08-08 09:37 | PM.IMPN ---
Progress Note: A&P Assessment and Plan (1) Confusion: Code(s): R41.0 - Disorientation, unspecified Status: Acute Assessment and Plan: Patient mildly confused. Hallucinations are more associated with confusion then true hallucinations. MRI brain showing no acute findings. TSH/B12/Folate all normal. No abd pain to suggest peritonitis. BCx repeated. Probably confusion related to mild dementia. Follow up on repeat BCx. Check UA. Plan discharge if BCx negative x 2 days. (2) Endocarditis: Code(s): I38 - Endocarditis, valve unspecified Status: Chronic Assessment and Plan: Patient underwent HALEY with cardioversion 07/12. HALEY showing severe MR with possible small, hypermobile vegetation at the tip of the anterior leaflet of the mitral valve.? BCx were negative. 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 Vanco started on 07/12/22 with plans for treatment through 08/22/22. HALEY also showed severe MR. He will need to have this further evaluated and treated once he is done with his abx. (3) Mitral regurgitation: Code(s): I34.0 - Nonrheumatic mitral (valve) insufficiency Status: Acute Assessment and Plan: Patient was diagnosis with severe mitral regurgitation on recent HALEY.? 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 Estimated date of completion August 22, 2022. (4) Bradycardia: Code(s): R00.1 - Bradycardia, unspecified Status: Acute Assessment and Plan: He was initially found to have bradycardia during HD and sent to the ER for this reason. Patient was previously discharged on Amiodarone, digoxin and metoprolol on 07/16.? Due to persistent bradycardia, they were appropriately being held on admission. Bradycardia appears to have resolved with heart rates in the 60s. Digoxin level was elevated. [place] bradycardia related to dig toxicity and his other medications. HR slowly improving? to 50-60s. Remains off Amiodarone, digoxin and metoprolol. Continue to monitor on tele. (5) COVID-19: Code(s): U07.1 - COVID-19 Status: Acute Assessment and Plan: CXR on admission showing some mild pulmonary edema but could be COVID. He remains on room air. Cough improving. He states his had COIVD recently. Since on room air, we held on Decadron. Continue supportive care.? Continue incentive spirometry. (6) Elevated digoxin level: Code(s): R78.89 - Finding of other specified substances, not normally found in blood Status: Acute Assessment and Plan: Digoxin has been stopped, as above, ? Per Cardiology recommendation. (7) Congestive heart failure: Code(s): I50.9 - Heart failure, unspecified Status: Acute Assessment and Plan: Euvolemic. Chest x-ray suggests more posterior right pleural effusion.? Continue fluid removal during dialysis as tolerated. Management per Nephrology. (8) Atrial fibrillation with slow ventricular response: Code(s): I48.91 - Unspecified atrial fibrillation Status: Acute Assessment and Plan: Patient underwent HALEY with cardioversion 07/12 but back in AFib that evening. As above. Continue Eliquis. Patient is not on rate lowering medications currently. Monitor closely on tele.? Follow-up cardiology evaluation.? (9) Elevated troponin: Code(s): R77.8 - Other specified abnormalities of plasma proteins Status: Acute Assessment and Plan: Troponin elevated but flat. 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 Elevated Troponin related to above. (10) Transaminitis: Code(s): R74.01 - Elevation of levels of liver transaminase levels Status: Acute Assessment and Plan: Elevated LFTs noted and probably related to the bradycardia with hepatic congestion and underlying cirrhosis. Bili elevated but all unconjugated so
[2022-08-08] MEDS: calcitrioL 0.25 MCG CAPSULE PO (09:52)
[2022-08-08] MEDS: APIXABAN 2.5 MG TABLET PO ×2 (09:52→20:43)
[2022-08-08] MEDS: MIDODRINE HCL 10 MG TABLET PO ×2 (09:53→17:55)
[2022-08-08] MEDS: VITAMIN B CMPLX/VIT C/FOLIC AC 1 CAPSULE 1 CAP PO (09:53)
[2022-08-08] MEDS: MELATONIN 5 MG TABLET PO (21:34)
[2022-08-09] VITALS (18 sets, daily range): BP systolic 81–129; BP diastolic 41–83; PULSE 37–73; RESP 16–20; TEMP 36–37; O2SAT 90–98
[2022-08-09 07:25] LABS: Albumin Level 3.1 g/dL (3.5-5.1); Anion Gap 15 mmol/L (8-16); Blood Urea Nitrogen 33 mg/dL (9-20); Calcium 8.4 mg/dL (8.4-10.2); Carbon Dioxide 23 mmol/L (22-30); Chloride 101 mmol/L (98-107); Estimated CRCL calculation 10 ml/min; Estimated Glomerular Filt Rate 11; Glucose 86 mg/dL (65-110); Phosphorus 4.3 mg/dL (2.5-4.5); Sodium 139 mmol/L (137-145)
--- NOTE | 2022-08-09 08:23 | PCOTNOTE ---
Attempted to see patient this am, however patient going for dialysis at this time.
--- NOTE | 2022-08-09 08:52 | PCPTNOTE ---
Patient in dialysis this AM, will continue with PT plan of care this afternoon.
[2022-08-09] MEDS: ALBUMIN HUMAN 25% 12.5 GM/50ML 50 ML IVPB (10:00)
[2022-08-09] MEDS: calcitrioL 0.25 MCG CAPSULE PO (11:02)
[2022-08-09] MEDS: MIDODRINE HCL 10 MG TABLET PO ×3 (11:02→18:44)
[2022-08-09] MEDS: FUROSEMIDE 80 MG TABLET PO (11:02)
[2022-08-09] MEDS: APIXABAN 2.5 MG TABLET PO ×2 (11:02→21:25)
[2022-08-09] MEDS: VITAMIN B CMPLX/VIT C/FOLIC AC 1 CAPSULE 1 CAP PO (11:03)
--- NOTE | 2022-08-09 12:47 | PM.PNNEP ---
Progress Note: A&P Assessment and Plan (1) End stage renal disease: Code(s): N18.6 - End stage renal disease Status: Chronic Assessment and Plan: The patient is due for dialysis today but there was an emergency so he was taken off early and will get another treatment tomorrow for a short time. (2) Bradycardia: Code(s): R00.1 - Bradycardia, unspecified Status: Acute Assessment and Plan: Heart rate doing well at 60 (3) COVID-19: Code(s): U07.1 - COVID-19 Status: Acute Assessment and Plan: this time doubt. He has no symptoms (4) Elevated digoxin level: Code(s): R78.89 - Finding of other specified substances, not normally found in blood Status: Acute Assessment and Plan: he is off digoxin now (5) Endocarditis: Code(s): I38 - Endocarditis, valve unspecified Status: Chronic Assessment and Plan: he is getting vancomycin through early August (6) Confusion: Code(s): R41.0 - Disorientation, unspecified Status: Acute Assessment and Plan: resolved Subjective Date/time seen: 08/09/22 12:47 Interval history: he is thinking clearly today. Physical therapy working with him. He is weaker today. He did just have dialysis though. Exam Narrative: WDWN in NAD skin no rash head ncat lungs clear cor reg no rub abd BS+ nontender and soft ext no edema. Objective Data Vital Signs Vital Signs: Vital Signs - 24 hr 08/08/22 14:00 08/08/22 16:00 08/08/22 21:40 Temperature 97.8 F 97.8 F Pulse Rate 50 L 50 L 51 L Respiratory Rate 18 16 Blood Pressure 101/60 101/60 Pulse Oximetry 95 98 Oxygen Delivery 08/08/22 20:00 08/08/22 20:00 08/09/22 00:00 Temperature Pulse Rate 51 L 47 L 52 L Respiratory Rate 16 Blood Pressure Pulse Oximetry 98 Oxygen Delivery Room Air 08/09/22 04:00 08/09/22 06:00 08/09/22 08:32 Temperature 97.8 F 98.2 F Pulse Rate 37 L 52 L 73 Respiratory Rate 16 16 Blood Pressure 124/58 L 129/62 Pulse Oximetry 98 Oxygen Delivery 08/09/22 08:35 08/09/22 09:00 08/09/22 09:30 Temperature Pulse Rate 56 L 60 69 Respiratory Rate Blood Pressure 100/76 106/83 88/46 L Pulse Oximetry Oxygen Delivery 08/09/22 09:45 08/09/22 10:00 08/09/22 10:16 Temperature Pulse Rate 71 61 64 Respiratory Rate Blood Pressure 81/45 L 95/41 L 98/54 L Pulse Oximetry Oxygen Delivery 08/09/22 10:20 Temperature 97.8 F Pulse Rate 60 Respiratory Rate 16 Blood Pressure 109/49 L Pulse Oximetry Oxygen Delivery Intake/Output Intake/Output: Intake & Output 08/06/22 08/07/22 08/08/22 08/09/22 23:59 23:59 23:59 23:59 Intake Total 150 680 564 50 Output Total 1 2000 0 0 Balance 149 -1320 564 50 Meds/Results Medications: Active Medications Generic Name Dose Route Start Last Admin Trade Name Freq PRN Reason Stop Dose Admin Acetaminophen 650 mg 07/29/22 14:39 Acetaminophen 325 Mg Tablet PO Q4H PRN Mild Pain (1-3) or Fever Apixaban 2.5 mg 07/29/22 23:10 08/09/22 11:02 Apixaban 2.5 Mg Tablet PO 2.5 mg Q12HR YING Administration Calcitriol 0.25 mcg 07/30/22 09:00 08/09/22 11:02 Calcitriol 0.25 Mcg Capsule PO 0.25 mcg DAILY YING Administration Dextrose 12.5 gm 07/29/22 17:47 Dextrose 50% 25 Gm/50 Ml Syringe IV PUSH PRN PRN Hypoglycemia Protocol Furosemide 80 mg 07/30/22 09:00 08/09/22 11:02 Furosemide 80 Mg Tablet PO 80 mg DAILY YING Administration Glucagon 1 mg 07/29/22 17:47 Glucagon For Inj 1 Mg Vial IM PRN PRN Hypoglycemia Protocol Glucose 15 gm 07/29/22 17:47 Glucose Oral Gel 15 Gm Of Glucse In 37.5 Gm Tube PO PRN PRN Hypoglycemia Protocol Dextrose 1,000 mls @ 100 mls/hr 07/29/22 17:47 Dextrose 5% 1,000 Ml IVPB PRN PRN Hypoglycemia Protocol Albumin Human 50 mls @ 999 mls/hr
--- NOTE | 2022-08-09 13:40 | PCPTNOTE ---
Pt refused treatment this afternoon stating that he just feels worn out. He stated that he attempted therapy early but wasn't able to stand. Will continue per PT plan of care.
--- NOTE | 2022-08-09 16:45 | PM.IMPN ---
Progress Note: A&P Assessment and Plan (1) Confusion: Code(s): R41.0 - Disorientation, unspecified Status: Acute Assessment and Plan: Patient has been confused recently without clear etiology. No hallucinations. MRI brain 08/06 showing no acute findings. TSH/B12/Folate/Ammonia all normal. No abd pain to suggest peritonitis. BCx repeated and are NGTD. Probably confusion related to mild dementia. Plan discharge if BCx negative x 2 days. (2) Endocarditis: Code(s): I38 - Endocarditis, valve unspecified Status: Chronic Assessment and Plan: Patient underwent HALEY with cardioversion 07/12. HALEY showing severe MR with possible small, hypermobile vegetation at the tip of the anterior leaflet of the mitral valve.? BCx were negative. 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 Vanco started on 07/12/22 with plans for treatment through 08/22/22. HALEY also showed severe MR. He will need to have this further evaluated and treated once he is done with his abx. Continue Vancomycin treatment through HD per nephrology. (3) Mitral regurgitation: Code(s): I34.0 - Nonrheumatic mitral (valve) insufficiency Status: Acute Assessment and Plan: Patient was diagnosis with severe mitral regurgitation on recent HALEY.? 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 Estimated date of completion August 22, 2022. (4) Bradycardia: Code(s): R00.1 - Bradycardia, unspecified Status: Acute Assessment and Plan: He was initially found to have bradycardia during HD and sent to the ER for this reason. Patient was previously discharged on Amiodarone, digoxin and metoprolol on 07/16.? Due to persistent bradycardia, they were appropriately being held on admission. Bradycardia appears to have resolved with heart rates in the 60s. Digoxin level was elevated. [place] bradycardia related to dig toxicity and his other medications. HR slowly improving to 50-60s. Remains off Amiodarone, digoxin and metoprolol. Continue to monitor on tele. (5) COVID-19: Code(s): U07.1 - COVID-19 Status: Acute Assessment and Plan: CXR on admission showing some mild pulmonary edema but could be COVID. He remains on room air. He states his had COIVD recently. Since on room air, we held on Decadron. Continue supportive care.? (6) Elevated digoxin level: Code(s): R78.89 - Finding of other specified substances, not normally found in blood Status: Acute Assessment and Plan: Digoxin has been stopped, as above, ? Per Cardiology recommendation. (7) Congestive heart failure: Code(s): I50.9 - Heart failure, unspecified Status: Acute Assessment and Plan: Euvolemic. Chest x-ray suggests more posterior right pleural effusion.? Continue fluid removal during dialysis as tolerated. Management per Nephrology. (8) Atrial fibrillation with slow ventricular response: Code(s): I48.91 - Unspecified atrial fibrillation Status: Acute Assessment and Plan: Patient underwent HALEY with cardioversion 07/12 but back in AFib that evening. As above. Continue Eliquis. Patient is not on rate lowering medications currently. Monitor closely on tele.? Follow-up cardiology evaluation.? (9) Elevated troponin: Code(s): R77.8 - Other specified abnormalities of plasma proteins Status: Acute Assessment and Plan: Troponin elevated but flat. 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 Elevated Troponin related to above. (10) Transaminitis: Code(s): R74.01 - Elevation of levels of liver transaminase levels Status: Acute Assessment and Plan: Elevated LFTs noted and probably related to the bradycardia with hepatic congestion and underlying cirrhosis. Bili elevated but all unconjugated so Gilbert's? vs asso
[2022-08-09 20:28] LABS: Vancomycin Random 19.7 ug/mL (10-20)
[2022-08-10] VITALS (13 sets, daily range): BP systolic 82–144; BP diastolic 36–75; PULSE 40–82; RESP 12–20; TEMP 36.5–37; O2SAT 90–95
[2022-08-10] MEDS: VITAMIN B CMPLX/VIT C/FOLIC AC 1 CAPSULE 1 CAP PO (08:33)
[2022-08-10] MEDS: MIDODRINE HCL 10 MG TABLET PO ×3 (08:33→17:56)
[2022-08-10] MEDS: calcitrioL 0.25 MCG CAPSULE PO (08:33)
[2022-08-10] MEDS: FUROSEMIDE 80 MG TABLET PO (08:33)
[2022-08-10] MEDS: APIXABAN 2.5 MG TABLET PO ×2 (08:33→20:43)
--- NOTE | 2022-08-10 08:37 | PM.PNNEP ---
Progress Note: A&P Assessment and Plan (1) End stage renal disease: Code(s): N18.6 - End stage renal disease Status: Chronic Assessment and Plan: The patient will get a short dialysis today then go to rehab (2) Bradycardia: Code(s): R00.1 - Bradycardia, unspecified Status: Acute Assessment and Plan: Heart rate up to 81 right now (3) COVID-19: Code(s): U07.1 - COVID-19 Status: Acute Assessment and Plan: this timed out. He has no symptoms (4) Elevated digoxin level: Code(s): R78.89 - Finding of other specified substances, not normally found in blood Status: Acute Assessment and Plan: he is off digoxin now (5) Endocarditis: Code(s): I38 - Endocarditis, valve unspecified Status: Chronic Assessment and Plan: he is getting vancomycin through early August (6) Confusion: Code(s): R41.0 - Disorientation, unspecified Status: Acute Assessment and Plan: resolved Subjective Date/time seen: 08/10/22 08:37 Interval history: he is thinking clearly today. Mouth is dry. Eager for discharge he gets dialysis today Exam Narrative: WDWN in NAD skin no rash head ncat. Dry mouth. lungs clear bilateral cor reg no rub or gallop abd BS+ nontender and soft ext no edema. Objective Data Vital Signs Vital Signs: Vital Signs - 24 hr 08/09/22 09:00 08/09/22 09:30 08/09/22 09:45 Temperature Pulse Rate 60 69 71 Respiratory Rate Blood Pressure 106/83 88/46 L 81/45 L Pulse Oximetry Oxygen Delivery 08/09/22 10:00 08/09/22 10:16 08/09/22 10:20 Temperature 97.8 F Pulse Rate 61 64 60 Respiratory Rate 16 Blood Pressure 95/41 L 98/54 L 109/49 L Pulse Oximetry Oxygen Delivery 08/09/22 11:00 08/09/22 14:00 08/09/22 12:00 Temperature 97.2 F L Pulse Rate 58 L 58 L 65 Respiratory Rate 16 16 Blood Pressure 113/65 Pulse Oximetry 98 95 Oxygen Delivery Room Air 08/09/22 16:00 08/09/22 20:12 08/09/22 20:00 Temperature 97.6 F Pulse Rate 55 L 61 62 Respiratory Rate 20 Blood Pressure 116/61 Pulse Oximetry 90 Oxygen Delivery 08/10/22 00:00 08/10/22 04:00 08/10/22 05:40 Temperature 97.8 F Pulse Rate 64 67 81 Respiratory Rate 20 Blood Pressure 131/71 Pulse Oximetry 95 Oxygen Delivery Intake/Output Intake/Output: Intake & Output 08/07/22 08/08/22 08/09/22 08/10/22 23:59 23:59 23:59 23:59 Intake Total 680 564 690 Output Total 2000 0 0 Balance -1320 564 690 Meds/Results Medications: Active Medications Generic Name Dose Route Start Last Admin Trade Name Freq PRN Reason Stop Dose Admin Acetaminophen 650 mg 07/29/22 14:39 Acetaminophen 325 Mg Tablet PO Q4H PRN Mild Pain (1-3) or Fever Apixaban 2.5 mg 07/29/22 23:10 08/10/22 08:33 Apixaban 2.5 Mg Tablet PO 2.5 mg Q12HR YING Administration Calcitriol 0.25 mcg 07/30/22 09:00 08/10/22 08:33 Calcitriol 0.25 Mcg Capsule PO 0.25 mcg DAILY YING Administration Dextrose 12.5 gm 07/29/22 17:47 Dextrose 50% 25 Gm/50 Ml Syringe IV PUSH PRN PRN Hypoglycemia Protocol Furosemide 80 mg 07/30/22 09:00 08/10/22 08:33 Furosemide 80 Mg Tablet PO 80 mg DAILY YING Administration Glucagon 1 mg 07/29/22 17:47 Glucagon For Inj 1 Mg Vial IM PRN PRN Hypoglycemia Protocol Glucose 15 gm 07/29/22 17:47 Glucose Oral Gel 15 Gm Of Glucse In 37.5 Gm Tube PO PRN PRN Hypoglycemia Protocol Dextrose 1,000 mls @ 100 mls/hr 07/29/22 17:47 Dextrose 5% 1,000 Ml IVPB PRN PRN Hypoglycemia Protocol Albumin Human 50 mls @ 999 mls/hr 07/31/22 07:18 08/09/22 10:04 Albutein IVPB 08/30/22 07:17 Infused Q10M PRN Infusion HYPOTENSION Vancomycin HCl 1,250 mg in 250 mls @ 200 mls/hr 08/01/22 09:29 Vancomycin 1,250 Mg/D5w 250 Ml IVPB PRN PRN
[2022-08-10 09:11] LABS: Glucose Point of Care 94 mg/dl (65-105)
--- NOTE | 2022-08-10 14:46 | PM.DS ---
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 - Endocarditis, valve unspecified Status: Chronic (3) Mitral regurgitation: Code(s): I34.0 - Nonrheumatic mitral (valve) insufficiency Status: Acute (4) Bradycardia: Code(s): R00.1 - Bradycardia, unspecified Status: Acute (5) COVID-19: Code(s): U07.1 - COVID-19 Status: Acute (6) Elevated digoxin level: Code(s): R78.89 - Finding of other specified substances, not normally found in blood Status: Acute (7) Congestive heart failure: Code(s): I50.9 - Heart failure, unspecified Status: Acute (8) Atrial fibrillation with slow ventricular response: Code(s): I48.91 - Unspecified atrial fibrillation Status: Acute (9) Elevated troponin: Code(s): R77.8 - Other specified abnormalities of plasma proteins Status: Acute (10) Transaminitis: Code(s): R74.01 - Elevation of levels of liver transaminase levels Status: Acute (11) End-stage renal disease on hemodialysis: Code(s): N18.6 - End stage renal disease; Z99.2 - Dependence on renal dialysis Status: Acute DS: Summary Hospital Course Reason for hospitalization: 76yo male with ESRD, CHF and AFib here for low HR and found to have COVID. Please see H&P for details Hospital Course: Patient was initially found to have bradycardia during HD and sent to the ER for this reason. Patient was previously discharged on Amiodarone, digoxin and metoprolol on 07/16.? Due to persistent bradycardia, these medications were appropriately held on admission. Bradycardia improved with heart rates in the 60s. Digoxin level was elevated. [place] bradycardia related to dig toxicity and his other medications. Patient underwent HALEY with cardioversion 07/12. HALEY showing severe MR with possible small, hypermobile vegetation at the tip of the anterior leaflet of the mitral valve.? BCx were negative at that time. 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 Vanco started on 07/12/22 with plans for treatment through 08/22/22. HALEY also showed severe MR; he will need to have this further evaluated and treated once he is done with his abx. We continued Vancomycin treatment through HD per nephrology. Patient had COVID on admission. CXR on admission showing some mild pulmonary edema but could be COVID. He remained on room air. He states his had COIVD recently. Since on room air, we held on Decadron. Patient remained in AFib. We continued Eliquis. Troponin elevated but flat. 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 Elevated Troponin related to severe bradycardia. Elevated LFTs noted and probably related to the bradycardia with hepatic congestion and underlying cirrhosis. Bili elevated but all unconjugated so Gilbert's? vs assoc with cirrhosis. Abd US showing cirrhosis and small amount of sludge in the GB. He worked with therapy. He became confused without clear etiology. No hallucinations. MRI brain 08/06 showing no acute findings. TSH/B12/Folate/Ammonia all normal. No abd pain to suggest peritonitis. BCx repeated and are NGTD. Probably confusion related to mild dementia. He overall did well and was able to be discharged on 08/10/22 Status at Discharge Cognitive/behavioral status at discharge: Stable Time Spent with Patient Time attestation: Total time spent providing and/or coordinating discharge services: 36 minutes Time spent: Greater than 30 minutes Exam Narrative: AF 97.9 106/57 62 12 95% ra Gen - NARD lying flat in bed Chest - CTA bilaterally. Right upper chest HD line in place CV - irregular, bradycardic Abd - Soft, NT/ND, Positive BS. Dialysis cath site clean and dry Ex
[2022-08-10 17:34] LABS: Glucose Point of Care 116 mg/dl (65-105)
--- NOTE | 2022-08-10 23:20 | PC.NURSE ---
[facility] HERE TO TRANSFER PATIENT VIA STRETCHER. ALL BELONGINGS WITH PATIENT.
== END 2022-08-10 23:25 | DRG 308 ==
LOC: ANHED 17:20 → ANHIMU 17:23 → ANH3MED 08-10 15:01 → ANHIMU 08-13 13:51
PROVIDERS: Emergency Medicine; Internal Medicine; Internal Medicine Nephrology; Nurse Practitioner; Physician Assistant; Admitting Provider Internal Medicine; Emergency Provider Emergency Medicine; PCP Family Medicine; Visit Provider Internal Medicine
DX: R00.1 Bradycardia, unspecified (principal); I33.9 Acute and subacute endocarditis, unspecified; N18.6 End stage renal disease; U07.1 COVID-19; I13.0 Hypertensive heart and chronic kidney disease with heart failure and stage 1 through stage 4 chronic kidney disease, or unspecified chronic kidney disease; I50.32 Chronic diastolic (congestive) heart failure; T44.7X5A Adverse effect of beta-adrenoreceptor antagonists, initial encounter; T46.2X5A Adverse effect of other antidysrhythmic drugs, initial encounter; T46.0X5A Adverse effect of cardiac-stimulant glycosides and drugs of similar action, initial encounter; I48.0 Paroxysmal atrial fibrillation; I34.0 Nonrheumatic mitral (valve) insufficiency; I25.10 Atherosclerotic heart disease of native coronary artery without angina pectoris; D63.8 Anemia in other chronic diseases classified elsewhere; D69.6 Thrombocytopenia, unspecified; E11.22 Type 2 diabetes mellitus with diabetic chronic kidney disease; E11.42 Type 2 diabetes mellitus with diabetic polyneuropathy; K57.30 Diverticulosis of large intestine without perforation or abscess without bleeding; K74.60 Unspecified cirrhosis of liver; M48.02 Spinal stenosis, cervical region; N25.0 Renal osteodystrophy; M19.90 Unspecified osteoarthritis, unspecified site; E78.00 Pure hypercholesterolemia, unspecified; E03.9 Hypothyroidism, unspecified; K27.9 Peptic ulcer, site unspecified, unspecified as acute or chronic, without hemorrhage or perforation; R41.0 Disorientation, unspecified; I25.2 Old myocardial infarction; Z85.528 Personal history of other malignant neoplasm of kidney; Z87.891 Personal history of nicotine dependence; Z87.442 Personal history of urinary calculi; Z79.01 Long term (current) use of anticoagulants; Z95.5 Presence of coronary angioplasty implant and graft; Z99.2 Dependence on renal dialysis
CPT/HCPCS: 36415; 70551; 71045; 71046; 76705; 80048; 80053; 80069; 80074; 80162; 80202; 82140; 82248; 82565; 82607; 82746; 82948; 83036; 83735; 83880; 84100; 84145; 84439; 84443; 84480; 84484; 85025; 85027; 85055; 85610; 85730; 86140; 86706; 87040; 87636; 93005; 94640; 97110; 97116; 97161; 97166; 97530; 97535; 99285; A9270; G0257; G0378; J1644; J3370; J7030; P9047; Q5105

== ENCOUNTER 2022-08-12 16:33 | Observation (INO) | payer MEDICARE, SELFPAY ==
--- NOTE | ~2022-08-12 | CT_ITS ---
CT head without contrast Indication: Altered mental status COMPARISON: 06/26/2022 Technique: Serial scans were obtained through the brain without the administration of contrast. Dose reduction technique was used on this scan by utilizing automated exposure control and iterative recon struction technique. The dose-length product (DLP) was 605.33 mGy-cm. Findings: There is no evidence of intracranial hemorrhage, mass lesion, or acute infarct. The ventri cles and subarachnoid spaces are dilated, consistent with mild atrophy. Low attenuation regions are seen within the periventricular white matter bilaterally, likely representing changes from chronic mi crovascular ischemic disease. There is no evidence of edema, mass effect or midline shift. The visu alized paranasal sinuses and mastoid air cells are clear. Impression: No intracranial hemorrhage, mass, or acute infarct. Atrophy and chronic white matter changes, as above. Reviewed, dictated and finalized at [facility]. [employer]RIERS SUPERVISOR Impression: No intracranial hemorrhage, mass, or acute infarct. Atrophy and chronic white matter changes, as above.
--- NOTE | ~2022-08-12 | XR_ITS ---
Clinical Indication: Altered mental status, hypertension AP and lateral views of the chest: Comparison: 08/08/2022 Findings: Right-sided central venous line is unchanged. Minimal bibasilar haziness noted. Cardiomedi astinal silhouette is within normal limits. Bones and soft tissues are unremarkable. Impression: Probable minimal bibasilar pulmonary edema. Stable support line. Reviewed, dictated and finalized at location . [employer]CH GROUP DIRECTOR Impression: Probable minimal bibasilar pulmonary edema. Stable support line.
[2022-08-12 17:03] VITALS: BP 101/59; PULSE 69; RESP 18; TEMP 36.6; O2SAT 95
--- NOTE | 2022-08-12 21:29 | ED.GENADULT ---
HPI - General Adult General Chief complaint: Unspecified <Mohini Villarreal PA-C - Last Filed: 08/13/22 02:39> Stated complaint: missed dialysis appointment <Mohini Villarreal PA-C - Last Filed: 08/13/22 02:39> Time Seen by Provider: 08/12/22 21:29 <Mohini Villarreal PA-C - Last Filed: 08/13/22 02:39> Source: patient and family <Mohini Villarreal PA-C - Last Filed: 08/13/22 02:39> Mode of arrival: ambulatory <Mohini Villarreal PA-C - Last Filed: 08/13/22 02:39> Limitations: other (poor historian, mildly confused) <Mohini Villarreal PA-C - Last Filed: 08/13/22 02:39> History of Present Illness HPI narrative: This is a 76-year-old male that presents to the emergency department for worsening hypotension noted over the last couple of days. Does report this is a chronic problem for him and he takes midodrine for this. Reports worsening over the last couple of days. Also reports generalized weakness. Reports he is a hemodialysis patient. His steeple jack is Dr. Sevilla. Reports he was recently discharged from our facility to rehab for deconditioning. He reports he has had intermittent confusion. He does report a cough. Reports he recently had COVID. Denies fever, chest pain, shortness of breath, lower extremity edema, abdominal pain, or vomiting. <Mohini Villarreal PA-C - Last Filed: 08/13/22 02:39> Related Data Home medications: Home Medications Medication Instructions Recorded Confirmed calcitriol 0.25 mcg capsule 0.25 mcg PO DAILY 11/12/21 08/13/22 atorvastatin 40 mg tablet 40 mg PO QHS 03/27/22 08/13/22 furosemide 80 mg tablet 80 mg PO DAILY 03/27/22 08/13/22 bisacodyl 10 mg rectal suppository 10 mg RECTAL DAILY PRN Constipation 08/13/22 08/13/22 magnesium citrate (Citroma oral 296 ml PO DAILY PRN Constipation 08/13/22 08/13/22 solution) magnesium hydroxide 400 mg/5 mL 30 ml PO DAILY PRN Constipation 08/13/22 08/13/22 oral suspension (Milk of Magnesia) <Mohini Villarreal PA-C - Last Filed: 08/13/22 02:39> Allergies/adverse reactions: Allergies Allergy/AdvReac Type Severity Reaction Status Date / Time No Known Allergies Allergy Unknown Verified 08/05/22 15:24 <Mohini Villarreal PA-C - Last Filed: 08/13/22 02:39> Review of Systems Review of Systems: CONSTITUTIONAL: Denies fever EYES: Denies redness, or discharge. ENT: Denies rhinorrhea, congestion, sore throat CARDIOVASCULAR: Denies chest pain, or edema. RESPIRATORY: Reports cough. Denies dyspnea. GASTROINTESTINAL: Denies abdominal pain, nausea, vomiting SKIN: Denies rash NEUROLOGIC: Reports generalized weakness. <Mohini Villarreal PA-C - Last Filed: 08/13/22 02:39> All systems reviewed & are unremarkable except as noted in HPI and below <Mohini Villarreal PA-C - Last Filed: 08/13/22 02:39> [facility] Past Medical History Medical History: Medical History (Updated 08/13/22 @ 01:43 by Mohini Villarreal PA-C) Anemia of chronic disease Arthritis Cataracts, bilateral Maturing Cervical spinal stenosis Confusion Coronary artery disease History of non STEMI in May 2018 status post drug-eluting stent to the LAD. 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 Diabetic peripheral neuropathy Diverticular hemorrhage Diverticulitis End-stage renal disease on hemodialysis Erythropoietin deficiency anemia Heart failure with preserved ejection fraction Echocardiogram in June 2019 showed a severely enlarged left atrial chamber, normal left ventricular size with moderate concentric left ventricular hypertrophy, left ventricular function is at the lower end of normal with an estimated ejection fraction 50-55% (although calculated at 63%), no wall motion abnormalities, moderate aortic valve calcification with no significant stenosis, moderate to moderately severe eccentric mitral valve regurgitation, mild tricuspid valve regurgitation, estimated pulmonary arterial systolic pressure of 32 mmHg, dilated inferior vena cava with <50%
--- NOTE | 2022-08-12 21:30 | ECG_ITS ---
Measurements Intervals [place] Rate: 54 P: MN: 0 QRS: -43 QRSD: 128 T: 131 QT: 520 QTc: 494 Interpretive Statements ATRIAL FIBRILLATION WITH SLOW VENTRICULAR RESPONSE LEFT AXIS DEVIATION LEFT BUNDLE BRANCH BLOCK ABNORMAL ECG COMPARED TO ECG 07/30/2022 01:06:31 NO SIGNIFICANT CHANGES Electronically Signed On 08-13-2022 17:43:10 CHANGE ANALYST by Luis Fernando Sandoval M.D.
[2022-08-12 23:09] LABS: Appearance Urine Cloudy (Clear); Bilirubin Urine 2+ (Negative); Blood Urine 3+ (Negative); Glucose Urine UA Trace mg/dL (Negative); Ketones Urine Trace mg/dL (Negative); Leukocyte Esterase Ur 2+ LEU/UL (Negative); Nitrate Urine Positive (Negative); Protein Urine 3+ mg/dL (Negative); Specific Grav Ur 1.015 (1.001-1.035); pH Urine 6.5 (5.0-9.0)
[2022-08-12 23:10] LABS: Add Urine Microscopic? YES; Color Urine Dark Yellow (Yellow)
[2022-08-12 23:24] LABS: Amphetamine Screen Urine Negative (Negative); Barbiturate Screen Urine Negative (Negative); Benzodiazepines Screen Urine Negative (Negative); Cannabinoid Screen Urine Negative (Negative); Cocaine Screen Urine Negative (Negative); Methadone Screen Urine Negative (Negative); Opiate Screen Urine Negative (Negative); Phencyclidine Screen Urine Negative (Negative)
[2022-08-12 23:46] LABS: RBC Urine >75 /hpf (0-2); WBC Urine 51-75 /hpf
[2022-08-12 23:47] LABS: Bacteria Urine 1+ /hpf
[2022-08-12 23:47] LABS: Basophils Absolute Auto 0.1 K/mm3 (0.0-0.1); Basophils Percent Auto 0.5 % (0.2-1.2); Eosinophils Absolute Auto 0.1 K/mm3 (0-0.3); Eosinophils Percent Auto 1.1 % (0-4.4); Hematocrit 36.5 % (42.0-52.0); Hemoglobin 11.5 g/dL (14.0-18.0); Immature Granulocyte Absolute 0.16 K/mm3 (0.00-0.031); Immature Granulocyte Percent A 1.4 % (0-0.5); Lymphocytes Absolute Auto 0.62 K/mm3 (0.9-3.2); Lymphocytes Percent Auto 5.5 % (18.3-44.2); Mean Corpuscular HGB Conc 31.5 g/dl (32-36); Mean Corpuscular Volume 104.9 fl (80-100); Mean Platelet Volume 11.1 fl (7.4-10.4); Monocytes Absolute Auto 0.6 K/mm3 (0.1-0.6); Monocytes Percent Auto 5.7 % (2.6-8.5); Neutrophils Absolute Auto 9.6 K/mm3 (1.3-6.7); Neutrophils Percent Auto 85.8 % (45.5-73.1); Platelet Count Result 143 k/mm3 (150-375); Red Blood Count 3.48 M/mm3 (4.6-6.20); Red Cell Distribution Width 18.6 % (11.5-14.5); White Blood Count 11.2 K/mm3 (4.5-10.0)
[2022-08-12 23:55] VITALS: BP 105/79; PULSE 57; RESP 24; O2SAT 94
[2022-08-12 23:57] LABS: Alanine Aminotransferase 58 U/L (6-50); Albumin Level 3.2 g/dL (3.5-5.1); Alkaline Phosphatase 76 U/L (38-126); Anion Gap 8 mmol/L (8-16); Aspartate Amino Transferase 35 U/L (17-59); Bilirubin,Total 2.3 mg/dL (0.2-1.3); Blood Urea Nitrogen 42 mg/dL (9-20); Calcium 8.5 mg/dL (8.4-10.2); Carbon Dioxide 32 mmol/L (22-30); Chloride 98 mmol/L (98-107); Estimated CRCL calculation 11 ml/min; Estimated Glomerular Filt Rate 10; Glucose 114 mg/dL (65-110); Potassium 3.6 mmol/L (3.4-5.0); Sodium 138 mmol/L (137-145)
[2022-08-13] VITALS (27 sets, daily range): BP systolic 92–141; BP diastolic 51–99; PULSE 45–110; RESP 13–25; TEMP 35.7–36.6; O2SAT 90–97; BMI 25.7
[2022-08-13 00:02] LABS: Ethanol < 10 mg/dL (<10)
[2022-08-13 00:03] LABS: INR 2.4; Prothrombin Time 25.3 Seconds (11.1-14.7)
[2022-08-13 00:04] LABS: Partial Thromboplastin Time 55.6 SECONDS (22.3-36.8)
[2022-08-13 00:06] LABS: Lactic Acid Reflex 1.8 mmol/L (0.7-2.0)
[2022-08-13 00:07] LABS: Creatine Kinase 37 U/L (55-170)
[2022-08-13 00:24] LABS: Influenza A QL RT-PCR Negative (Negative); Influenza B QL RT-PCR Negative (Negative); SARS-CoV-2 RNA PCR Positive
[2022-08-13] MEDS: SODIUM CHLORIDE 0.9% IV 500 ML 999 ML IV CONT (01:45)
[2022-08-13 02:11] LABS: Total Triiodothyronine (T3) 0.43 NG/ML (0.97-1.69)
--- NOTE | 2022-08-13 04:42 | ADMGEN ---
This patient, Elias Aguirre, was admitted to Medical Room 248-. Patient/family oriented to hospital policies and general routines including ID bracelet, bed and alarms, visiting hours, pain management, procedures, bathroom and other care routines, personal items, smoking policy, room service/diet, and visiting hours. Information on how to activate the Rapid Response Team has been discussed. Patient/Family are encouraged to report perceived risks to care and to ask questions if they do not understand what they are told or what they should do.
[2022-08-13] MEDS: calcitrioL 0.25 MCG CAPSULE PO (08:52)
[2022-08-13] MEDS: MIDODRINE HCL 10 MG TABLET PO ×3 (08:52→18:14)
[2022-08-13] MEDS: FUROSEMIDE 80 MG TABLET PO (08:52)
[2022-08-13] MEDS: APIXABAN 2.5 MG TABLET PO ×2 (08:53→22:05)
--- NOTE | 2022-08-13 10:33 | PM.CNNEP ---
Assessment and Plan Assessment and plan (1) End stage renal disease: Code(s): N18.6 - End stage renal disease Status: Chronic Assessment and Plan: The patient has end-stage renal disease. This is due to diabetes and hypertension. He missed his treatment yesterday. We will do a treatment today. His volume status looks pretty good right now. His potassium is fine. Will use a 3K bath. (2) Atrial fibrillation with slow ventricular response: Code(s): I48.91 - Unspecified atrial fibrillation Status: Acute Assessment and Plan: The patient has atrial of fibrillation. His ventricular response right now is normal with a heart rate in the 60s. He had been on metoprolol alone and now he is off metoprolol entirely. (3) Congestive heart failure: Code(s): I50.9 - Heart failure, unspecified Status: Acute Assessment and Plan: The patient has mitral regurgitation. His chest x-ray is read as minimal pulmonary edema. He is not on oxygen. His blood pressure is a bit soft. I will not remove much fluid today on dialysis. (4) Pyuria: Code(s): R82.81 - Pyuria Status: Acute Assessment and Plan: The patient has pyuria. He had no symptoms. He was confused in the ER but he is frequently at night lately. I do not think he has a bladder infection. Will see what cultures show. Will stop the ceftriaxone and see what the cultures show. He does need his vancomycin because of his endocarditis. (5) Endocarditis: Code(s): I38 - Endocarditis, valve unspecified Status: Chronic Assessment and Plan: He has a mass on his mitral valve. Cultures of never been positive but he is being treated for endocarditis empirically History of Present Illness Reason for Consult Consult date: 08/13/22 Chief Complaint Chief complaint: Acute metabolic encephalopathy, UTI History of Present Illness Narrative: Elias is a very pleasant 76-year-old gentleman who has multiple medical problems including end-stage renal disease on dialysis 3 times a week, congestive heart failure with mitral regurgitation, diastolic dysfunction, paroxysmal atrial fibrillation, a mitral valve mass felt to be vegetation and on antibiotics for that, hypertension, hyperlipidemia, kidney stones, recent hypotension, anemia, renal osteodystrophy, 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 The patient was in hospital for a long time earlier this month. He was bradycardic. He was admitted and chronotropic medications were discontinued. His heart rate improved and he ended up on metoprolol. He also had COVID. He also had sundowning as well. In addition he was in bed for long time and weak and so was discharged to a long term for rehab just a few days ago. He was supposed to go to dialysis yesterday but somehow it did not go. I do not know if it was a transportation issue or a knowledge deficit on the part of the long term but he did not get his dialysis yesterday. He became upset at the long term and they sent him back to the emergency room because he did not get his dialysis. In the ER he was evaluated. He was a bit confused (although he is often confused in the evenings). They noted the confusion and so check to urine. He does not make much urine anyway so they did a straight cath and found pus in the urine so admitted him to the hospital. The patient does not have any pain with urination. Does not have any urge to urinate. He has does not make much urine at all since being on dialysis. Patient is lucid right now. He is upset at the [facility] facility from which he came and wants to go to a different 1. I talked with the casework supervisor and with Dr. Arroyo Review of Systems Constitutional: Constitutional: Reports no additional constitutional complaints Eyes: Eyes: Reports no additional eye complaints ENT: Reports system reviewed a
--- NOTE | 2022-08-13 13:36 | PM.IMHP ---
H&P: HPI History of Present Illness Date/Time: 08/13/22 13:36 Chief Complaint: hypotension generalized weakness Narrative: ED-HPI narrative: ? ? ? This is a 76-year-old male that presents to the emergency department for worsening hypotension noted over the last couple of days.? Does report this is a chronic problem for him and he takes midodrine for this. Reports worsening over the last couple of days. Also reports generalized weakness. Reports he is a hemodialysis patient.? His special services coordinator is Dr. Sevilla. Reports he was recently discharged from our facility to rehab for deconditioning. He reports he has had intermittent confusion. He does report a cough. Reports he recently had COVID. Denies fever, chest pain, shortness of breath, lower extremity edema, abdominal pain, or vomiting. Patient has ESRD on HD, presented with generalized weakness, hypertension and confusion, in ER patient was unable to urinate because patient does not urinate and he was straight cath, which showed pus this is common for dialysis patient as patient does not have any urinary symptoms, patient seen by [facility], patient missed his dialysis yesterday is scheduled to have dialysis today, discussed with the patient care provider patient will require reauthorization to return back to SNF, meanwhile will have PT OT evaluate the patient and further recommendation to follow. patient admitted as observation status. [facility] Past Medical History Medical History Anemia of chronic disease Arthritis Cataracts, bilateral Maturing Cervical spinal stenosis Confusion Coronary artery disease History of non STEMI in May 2018 status post drug-eluting stent to the LAD. 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 mcc anticoagulation Diabetic peripheral neuropathy Diverticular hemorrhage Diverticulitis End-stage renal disease on hemodialysis Erythropoietin deficiency anemia Heart failure with preserved ejection fraction Echocardiogram in June 2019 showed a severely enlarged left atrial chamber, normal left ventricular size with moderate concentric left ventricular hypertrophy, left ventricular function is at the lower end of normal with an estimated ejection fraction 50-55% (although calculated at 63%), no wall motion abnormalities, moderate aortic valve calcification with no significant stenosis, moderate to moderately severe eccentric mitral valve regurgitation, mild tricuspid valve regurgitation, estimated pulmonary arterial systolic pressure of 32 mmHg, dilated inferior vena cava with <50% collapse upon inspiration consistent with elevated right atrial pressure, 10 mmHg., transesophageal echocardiogram September 2019 demonstrated moderate mitral valve regurgitation with stable EF Hypercholesteremia Hypertension Hypothyroidism Kidney stones (~2008) Mitral regurgitation Paroxysmal atrial fibrillation Status post cardioversion in October 2019 and February 2020. 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 Hemoglobin A1c 5.7 11/13/2020 Surgical History Surgical History History of appendectomy 1975 History of cardiac catheterization (~05/2018) Totally occlude LAD status post drug-eluting stent. Additional findings include high-grade stenosis of non dominant left circumflex, diffuse disease of the ramus intermedius, right posterior lateral branch with 30% distal stenosis, and diffuse but nonocclusive disease of a large dominant right coronary artery. History of cardioversion x2 History of tonsillectomy Peritoneal dialysis catheter in place Status post cryoablation (~05/2011) Left renal cell carcinoma. Family History Family History Father End stage renal disease on dialysis Hypertension Colon canc
--- NOTE | 2022-08-13 15:05 | PC.NURSE ---
Patient to dialysis at 1440.
[2022-08-13] MEDS: SODIUM CHLORIDE 0.9% IV 1,000 ML 999 ML IV CONT (16:47)
[2022-08-13 21:06] LABS: Vancomycin Random 18.2 ug/mL (10-20)
[2022-08-14] VITALS (13 sets, daily range): BP systolic 98–122; BP diastolic 47–76; PULSE 46–77; RESP 16–18; TEMP 35.4–36.5; O2SAT 95
[2022-08-14 05:50] LABS: Hematocrit 37.7 % (42.0-52.0); Hemoglobin 12.1 g/dL (14.0-18.0); Mean Corpuscular HGB Conc 32.1 g/dl (32-36); Mean Corpuscular Hemoglobin 32.9 pg (26-34); Mean Corpuscular Volume 102.4 fl (80-100); Platelet Count Result 157 k/mm3 (150-375); Red Blood Count 3.68 M/mm3 (4.6-6.20); Red Cell Distribution Width 18.5 % (11.5-14.5); White Blood Count 11.3 K/mm3 (4.5-10.0)
[2022-08-14 06:08] LABS: Albumin Level 3.4 g/dL (3.5-5.1); Anion Gap 12 mmol/L (8-16); Blood Urea Nitrogen 22 mg/dL (9-20); Calcium 8.2 mg/dL (8.4-10.2); Carbon Dioxide 32 mmol/L (22-30); Chloride 96 mmol/L (98-107); Estimated CRCL calculation 14 ml/min; Estimated Glomerular Filt Rate 17; Glucose 78 mg/dL (65-110); Magnesium 2.1 mg/dL (1.6-2.3); Phosphorus 3.2 mg/dL (2.5-4.5); Potassium 3.6 mmol/L (3.4-5.0); Sodium 140 mmol/L (137-145)
[2022-08-14] MEDS: APIXABAN 2.5 MG TABLET PO (10:18)
[2022-08-14] MEDS: MIDODRINE HCL 10 MG TABLET PO ×3 (10:18→17:51)
[2022-08-14] MEDS: calcitrioL 0.25 MCG CAPSULE PO (10:18)
[2022-08-14] MEDS: FUROSEMIDE 80 MG TABLET PO (10:18)
--- NOTE | 2022-08-14 13:31 | PM.PNNEP ---
Progress Note: A&P Assessment and Plan (1) End stage renal disease: Code(s): N18.6 - End stage renal disease Status: Chronic Assessment and Plan: HD yesterday and today to get back on M/W/ dialysis schedule follow electrolytes, volume status, and clearance (2) Confusion: Code(s): R41.0 - Disorientation, unspecified Status: Acute Assessment and Plan: noted at nursing facility usually in the evenings possible (?) (3) Endocarditis: Code(s): I38 - Endocarditis, valve unspecified Status: Chronic Assessment and Plan: being treated with vancomycin with dialysis Not opposed to discharge when his is otherwise medically stable. Subjective Date/time seen: 08/14/22 13:31 Chart reviewed -- assuming care from Dr. Sevilla; tolerating hemodialysis treatment at the time of my visit (seen on HD at ~ 1:20PM; no apparent distress voiced overnight or earlier this AM; seems to be feeling reasonably well. Exam Narrative: General: WD/WN elderly male in NAD Heart: IRRR; normal S1 and S2; no rub Lungs: decreased at bases Abdomen: soft, nontender, nondistended, positive bowel sounds Extremities: no cyanosis or clubbing; no edema Skin: warm and dry Objective Data Vital Signs Vital Signs: Vital Signs Temp Pulse Resp BP Pulse Ox O2 Del Method 08/14/22 13:30 64 110/72 08/14/22 13:10 55 L 104/62 08/14/22 12:52 46 L 101/65 08/14/22 12:40 97.7 F 64 18 115/73 08/14/22 10:20 Room Air 08/14/22 04:34 97.2 F L 70 18 114/72 95 08/13/22 21:35 97.8 F 87 18 92/76 L 91 08/13/22 17:53 97.6 F 55 L 16 106/54 L 08/13/22 17:45 63 110/51 L Intake/Output Intake/Output: Intake & Output 08/11/22 08/12/22 08/13/22 08/14/22 23:59 23:59 23:59 23:59 Intake Total 1150 360 Output Total 45 500 400 Balance -45 650 -40 Meds/Results Medications: Active Medications Generic Name Dose Route Start Last Admin Trade Name Freq PRN Reason Stop Dose Admin Apixaban 2.5 mg 08/13/22 09:00 08/14/22 10:18 Apixaban 2.5 Mg Tablet PO 2.5 mg Q12HR YING Administration Bisacodyl 10 mg 08/13/22 07:56 Bisacodyl 10 Mg Suppository RECTAL DAILY PRN Constipation Calcitriol 0.25 mcg 08/13/22 09:00 08/14/22 10:18 Calcitriol 0.25 Mcg Capsule PO 0.25 mcg DAILY YING Administration Furosemide 80 mg 08/13/22 09:00 08/14/22 10:18 Furosemide 80 Mg Tablet PO 80 mg DAILY YING Administration Vancomycin HCl 1,000 mg in 250 mls @ 250 mls/hr 08/13/22 12:00 Vancomycin 1,000 Mg/D5w 250 Ml IVPB PRN PRN Pharmacy dosing Magnesium Hydroxide 30 ml 08/13/22 07:56 Magnesium Hydroxide Susp 30 Ml Udc PO DAILY PRN Constipation Midodrine 10 mg 08/13/22 09:00 08/14/22 12:26 Midodrine Hcl 10 Mg Tablet PO 10 mg TID YING Administration Radiology Results: ITS Impressions Head CT 08/13/22 06:06 Impression: No intracranial hemorrhage, mass, or acute infarct. Atrophy and chronic white matter changes, as above. Chest X-Ray 08/13/22 06:30 Impression: Probable minimal bibasilar pulmonary edema. Stable support line. Labs Labs: Laboratory Results - last 24 hr 08/13/22 08/14/22 08/14/22 20:06 05:25 05:25 WBC 11.3 H RBC 3.68 L Hgb 12.1 L Hct 37.7 L MCV 102.4 H MCH 32.9 MCHC 32.1 RDW 18.5 H Plt Count 157 MPV 11.0 H Sodium 140 Potassium 3.6 Chloride 96 L Carbon Dioxide 32 H Anion Gap 12 BUN 22 H D Creatinine 3.60 H Estim Creat Clear Calc 14 Estimated GFR 17 L Glucose 78 Calcium 8.2 L Phosphorus 3.2 Magnesium 2.1 Albumin 3.4 L Random Vancomycin 18.2 Quality Patient seen/evaluated on hemodialysis treatment ([id number]).
--- NOTE | 2022-08-14 14:52 | PM.DS ---
DS: Admitting Diagnosis Discharge Date 08/14/2022 Admitting Diagnosis ?hypotension generalized weakness DS: Discharge Diagnosis Discharge Diagnosis (1) Pyuria: Code(s): R82.81 - Pyuria Status: Acute Assessment and Plan: ED-HPI narrative: ? ? ? This is a 76-year-old male that presents to the emergency department for worsening hypotension noted over the last couple of days.? Does report this is a chronic problem for him and he takes midodrine for this. Reports worsening over the last couple of days. Also reports generalized weakness. Reports he is a hemodialysis patient.? His wood die maker is Dr. Sevilla. Reports he was recently discharged from our facility to rehab for deconditioning. He reports he has had intermittent confusion. He does report a cough. Reports he recently had COVID. Denies fever, chest pain, shortness of breath, lower extremity edema, abdominal pain, or vomiting. Patient has ESRD on HD, presented with generalized weakness, hypertension and confusion, in ER patient was unable to urinate because patient does not urinate and he was straight cath, which showed pus this is common for dialysis patient as patient does not have any urinary symptoms, patient seen by [employer], patient missed his dialysis yesterday is scheduled to have dialysis today, discussed with the skin care technician patient will require reauthorization to return back to SNF, meanwhile will have PT OT evaluate the patient and further recommendation to follow. (2) Confusion: Code(s): R41.0 - Disorientation, unspecified Status: Acute Assessment and Plan: patient elderly dialysis patient patient is confused at the baseline and gets worse during the evening, no agitation will continue to monitor. (3) End stage renal disease: Code(s): N18.6 - End stage renal disease Status: Chronic Assessment and Plan: patient seen by wood die maker and will have scheduled dialysis. DS: Summary Hospital Course Reason for hospitalization: Chief Complaint: ?hypotension generalized weakness Narrative: ED-HPI narrative: ? ? ? This is a 76-year-old male that presents to the emergency department for worsening hypotension noted over the last couple of days.? Does report this is a chronic problem for him and he takes midodrine for this. Reports worsening over the last couple of days. Also reports generalized weakness. Reports he is a hemodialysis patient.? His wood die maker is Dr. Sevilla. Reports he was recently discharged from our facility to rehab for deconditioning. He reports he has had intermittent confusion. He does report a cough. Reports he recently had COVID. Denies fever, chest pain, shortness of breath, lower extremity edema, abdominal pain, or vomiting. Patient has ESRD on HD, presented with generalized weakness, hypertension and confusion,? in ER patient was unable to urinate because patient does not urinate and he was straight cath, which showed pus? this is common for dialysis patient as? patient does not have any urinary symptoms,? patient seen by [employer],? patient missed his dialysis yesterday is scheduled to have dialysis today, discussed with the skin care technician patient will require reauthorization to return back to SNF,? meanwhile will have PT OT evaluate the patient and further recommendation to follow. Hospital Course: patient had dialysis now he is back to his baseline, patient is clinically stable, seen by Nephrology and okay to discharge Time Spent with Patient Time attestation: Total time spent providing and/or coordinating discharge services: Exam Narrative: elderly frail Patient is comfortable, NAD HEENT: eyes are clear and none icteric LUNGS: normal respiratory effort ABD: not distended Lower extremities: no edema SKIN: nonjaundiced Neuro: grossly intact. DS: Data Data Completed and Pending Labs on day of discharge: Labs from last 24 hours 08/14/22 08/14/22 08/13/22 05:25 05:25
== END 2022-08-14 18:50 ==
LOC: ANHED 08-13 02:39 → ANH2MED 08-13 05:07
PROVIDERS: Internal Medicine Nephrology; Physician Assistant; Admitting Provider Family Medicine; Emergency Provider Preventive Medicine Aerospace Medicine; PCP Family Medicine; Visit Provider Family Medicine
DX: R82.81 Pyuria (principal); R41.0 Disorientation, unspecified; I13.2 Hypertensive heart and chronic kidney disease with heart failure and with stage 5 chronic kidney disease, or end stage renal disease; E11.22 Type 2 diabetes mellitus with diabetic chronic kidney disease; D63.1 Anemia in chronic kidney disease; I50.30 Unspecified diastolic (congestive) heart failure; N18.6 End stage renal disease; Z99.2 Dependence on renal dialysis; I48.91 Unspecified atrial fibrillation; I95.9 Hypotension, unspecified; U07.1 COVID-19; R50.9 Fever, unspecified; R53.1 Weakness; I38 Endocarditis, valve unspecified; I34.0 Nonrheumatic mitral (valve) insufficiency; R42 Dizziness and giddiness; R94.31 Abnormal electrocardiogram [ECG] [EKG]; R90.82 White matter disease, unspecified; M19.90 Unspecified osteoarthritis, unspecified site; M48.02 Spinal stenosis, cervical region; I25.10 Atherosclerotic heart disease of native coronary artery without angina pectoris; Z95.5 Presence of coronary angioplasty implant and graft; E11.40 Type 2 diabetes mellitus with diabetic neuropathy, unspecified; E78.00 Pure hypercholesterolemia, unspecified; E03.9 Hypothyroidism, unspecified; F10.90 Alcohol use, unspecified, uncomplicated; Y90.0 Blood alcohol level of less than 20 mg/100 ml; Z87.891 Personal history of nicotine dependence; Z86.16 Personal history of COVID-19; Z79.01 Long term (current) use of anticoagulants; Z79.899 Other long term (current) drug therapy
CPT/HCPCS: 36415; 51701; 70450; 71046; 80053; 80069; 80202; 80307; 81001; 82550; 83605; 83735; 84439; 84443; 84480; 85025; 85027; 85610; 85730; 87040; 87086; 87636; 93005; 96365; 97110; 97161; 97530; 99285; A9270; G0257; G0378; J0696; J1644; J7030; J7040

== ENCOUNTER 2022-08-19 10:16 | Observation (INO) | payer MEDICARE, SELFPAY ==
[2022-08-19] VITALS (62 sets, daily range): BP systolic 71–142; BP diastolic 34–92; PULSE 50–83; RESP 9–25; TEMP 36.1–36.2; O2SAT 77–100
--- NOTE | ~2022-08-19 | XR_ITS ---
EXAMINATION: XR chest 1V portable DATE: 08/19/2022 11:33 INDICATION: Weakness. Hypotension. TECHNIQUE: A single frontal view of the chest was obtained. COMPARISON: Chest 2 views 08/12/2022 FINDINGS: There is a small right pleural effusion. No pneumonia or pneumothorax. Cardiomegaly is note d. A right internal jugular central venous catheter is seen with tip at the superior cavoatrial junct ion. IMPRESSION: 1. Small right pleural effusion. 2. Cardiomegaly. Reviewed, dictated and finalized at location A. /OCEAN EXPORT CLERK
--- NOTE | ~2022-08-19 | CT_ITS ---
EXAMINATION: CT abdomen pelvis wo con DATE: 08/19/2022 15:49 INDICATION: weakness, diarrhea TECHNIQUE: Computed tomography (CT) of the abdomen and pelvis was performed without intravenous contr ast. Automated exposure control and iterative reconstruction technique were employed. The dose-length product was 623.98 mGy-cm. COMPARISON: 03/27/2022. FINDINGS: Lower thorax: Heavy coronary artery calcification. Patchy groundglass opacities in the bilateral lung s. Small right pleural effusion. Liver: The liver is small with a somewhat nodular border. Biliary/Gallbladder: The gallbladder is distended. No gallstones detected. No bile duct dilation. Pancreas: No mass or duct dilation. Spleen: Normal. Adrenals: Left adrenal adenoma. Kidneys: Complex 3.8 cm left lower pole mass, likely post ablation necrosis and calcification. Bilate ral renal atrophy. No hydronephrosis. GI tract: No small or large bowel dilation. Appendix not visualized Diverticulosis without diverticul itis. Mesentery/Peritoneum: Hyperdense fluid/thickening along the left lateral conal fascia. Retroperitoneum: Ill-defined hyperdensity measuring approximately 4.9 x 8.9 cm within the enlarged le ft psoas muscle. Extensive atherosclerotic abdominal aortic and/or arterial calcifications. Pelvis: Partially distended urinary bladder with wall thickening. Mild prostatomegaly. Small volume f ree pelvic fluid. Soft Tissues: Periumbilical peritoneal dialysis catheter terminating in the left lower quadrant. Bila teral inguinal hernias. Anterior hernia mesh. Bones: No acute osseous finding. IMPRESSION: 4.9 x 8.9 cm hyperdense focus in the left psoas muscle likely representing hemorrhage, with intraperi toneal extension along the left lateral conal fascia. Gallbladder hydrops. Urinary bladder wall thick ening secondary to inadequate distention versus cystitis. Additional chronic and incidental findings detailed above. Urgent findings reported telephonically to Dr. Cabral by Dr. Jonas at 4:15 PM on 08/19/2022. Reviewed, dictated and finalized at location K. ITORY COUNSELOR IMPRESSION: 4.9 x 8.9 cm hyperdense focus in the left psoas muscle likely representing hemo rrhage, with intraperitoneal extension along the left lateral conal fascia. Gal lbladder hydrops. Urinary bladder wall thickening secondary to inadequate diste ntion versus cystitis. Additional chronic and incidental findings detailed abov e. Urgent findings reported telephonically to Dr. Cabral by Dr. Jonas at 4:15 PM on 08/19/2022.
--- NOTE | 2022-08-19 11:17 | ECG_ITS ---
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
--- NOTE | 2022-08-19 11:27 | PC.NURSE ---
Dr. Cabral at bedside to assess pt. Aware of BP.
--- NOTE | 2022-08-19 11:33 | PC.NURSE ---
Patient report received from MONAE De Paz. All questions answered and care of patient assumed.
[2022-08-19] MEDS: SODIUM CHLORIDE 0.9% IV 500 ML 999 ML IV CONT ×2 (11:40→14:02)
[2022-08-19 12:11] LABS: Basophils Absolute Auto 0.1 K/mm3 (0.0-0.1); Basophils Percent Auto 0.3 % (0.2-1.2); Eosinophils Percent Auto 0.1 % (0-4.4); Hematocrit 33.9 % (42.0-52.0); Hemoglobin 10.8 g/dL (14.0-18.0); Immature Granulocyte Absolute 0.46 K/mm3 (0.00-0.031); Immature Granulocyte Percent A 3.1 % (0-0.5); Lymphocytes Absolute Auto 0.82 K/mm3 (0.9-3.2); Lymphocytes Percent Auto 5.6 % (18.3-44.2); Mean Corpuscular HGB Conc 31.9 g/dl (32-36); Mean Corpuscular Hemoglobin 33.8 pg (26-34); Mean Corpuscular Volume 105.9 fl (80-100); Mean Platelet Volume 10.6 fl (7.4-10.4); Monocytes Absolute Auto 0.8 K/mm3 (0.1-0.6); Monocytes Percent Auto 5.2 % (2.6-8.5); Neutrophils Absolute Auto 12.6 K/mm3 (1.3-6.7); Neutrophils Percent Auto 85.7 % (45.5-73.1); Platelet Count Result 207 k/mm3 (150-375); Red Cell Distribution Width 18.1 % (11.5-14.5); White Blood Count 14.7 K/mm3 (4.5-10.0)
[2022-08-19 12:22] LABS: Lactic Acid Reflex 2.4 mmol/L (0.7-2.0)
[2022-08-19 12:23] LABS: Alanine Aminotransferase 45 U/L (6-50); Albumin Level 3.2 g/dL (3.5-5.1); Alkaline Phosphatase 65 U/L (38-126); Anion Gap 12 mmol/L (8-16); Aspartate Amino Transferase 35 U/L (17-59); Bilirubin,Total 2.1 mg/dL (0.2-1.3); Blood Urea Nitrogen 32 mg/dL (9-20); Calcium 8.3 mg/dL (8.4-10.2); Carbon Dioxide 27 mmol/L (22-30); Chloride 99 mmol/L (98-107); Estimated CRCL calculation 11 ml/min; Estimated Glomerular Filt Rate 12; Glucose 106 mg/dL (65-110); INR 1.9; Magnesium 2.1 mg/dL (1.6-2.3); Partial Thromboplastin Time 41.5 SECONDS (22.3-36.8); Potassium 3.4 mmol/L (3.4-5.0); Prothrombin Time 21.3 Seconds (11.1-14.7); Sodium 138 mmol/L (137-145)
[2022-08-19 12:42] LABS: SARS-CoV-2 RNA PCR Positive
--- NOTE | 2022-08-19 13:34 | ED.RECABL ---
HPI - Recheck/Abnormal Lab/Rx General Chief Complaint: Recheck/Abnormal Lab/Rx Stated Complaint: low bp from dialysis Time Seen by Provider: 08/19/22 11:15 Source: patient, EMS, RN notes reviewed and old records reviewed Mode of arrival: EMS Limitations: no limitations History of Present Illness HPI narrative: THis is a 76 year old male with history of ESRD on dialysis who presents from dialysis for evaluation of hypotension. Patient states he has been having issues with hypotension for a while. He states that he is not eating or drink very much . He is not happy staying at [facility] for rehabilitation. He states he is unsure if they are giving him his medications correctly. He states he was given 1 medication today but he is unsure which one. He denies chest pain, sob, nausea, vomiting, diarrhea. He reports some dizziness. HE denies abdominal pain or back pain. Related Data Home Medications Medication Instructions Recorded Confirmed calcitriol 0.25 mcg capsule 0.25 mcg PO DAILY 11/12/21 08/13/22 furosemide 80 mg tablet 80 mg PO DAILY 03/27/22 08/13/22 bisacodyl 10 mg rectal suppository 10 mg RECTAL DAILY PRN Constipation 08/13/22 08/13/22 magnesium citrate (Citroma oral 296 ml PO DAILY PRN Constipation 08/13/22 08/13/22 solution) magnesium hydroxide 400 mg/5 mL 30 ml PO DAILY PRN Constipation 08/13/22 08/13/22 oral suspension (Milk of Magnesia) Allergies Allergy/AdvReac Type Severity Reaction Status Date / Time No Known Allergies Allergy Unknown Verified 08/05/22 15:24 Review of Systems Constitutional: Constitutional: Denies weakness Cardiovascular: Cardiovascular: Denies syncope, Denies rapid heart rate, Denies irregular heart rhythm, Denies leg edema and Denies dyspnea Respiratory: Respiratory: Denies chest congestion, Denies hemoptysis, Denies excessive phlegm production and Denies dyspnea Gastrointestinal: Gastrointestinal: Denies abdominal pain, Denies hematochezia, Reports diarrhea and Denies vomiting Genitourinary: Genitourinary: Denies hematuria, Denies dysuria, Denies penile discharge and Denies testicular pain Musculoskeletal: Musculoskeletal: Reports arthralgias, Denies joint swelling, Denies loss of height and Denies muscle weakness Neurologic: Reports dizziness, Denies syncope, Denies focal weakness and Denies weakness PMFSH Past Medical History Medical History Anemia of chronic disease Arthritis Cataracts, bilateral Maturing Cervical spinal stenosis Confusion Coronary artery disease History of non STEMI in May 2018 status post drug-eluting stent to the LAD. 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 custodial anticoagulation Diabetic peripheral neuropathy Diverticular hemorrhage Diverticulitis End-stage renal disease on hemodialysis Erythropoietin deficiency anemia Heart failure with preserved ejection fraction Echocardiogram in June 2019 showed a severely enlarged left atrial chamber, normal left ventricular size with moderate concentric left ventricular hypertrophy, left ventricular function is at the lower end of normal with an estimated ejection fraction 50-55% (although calculated at 63%), no wall motion abnormalities, moderate aortic valve calcification with no significant stenosis, moderate to moderately severe eccentric mitral valve regurgitation, mild tricuspid valve regurgitation, estimated pulmonary arterial systolic pressure of 32 mmHg, dilated inferior vena cava with <50% collapse upon inspiration consistent with elevated right atrial pressure, 10 mmHg., transesophageal echocardiogram September 2019 demonstrated moderate mitral valve regurgitation with stable EF Hypercholesteremia Hypertension Hypothyroidism Kidney stones (~2008) Mitral regurgitation Paroxysmal atrial fibrillation Status post cardioversion in October 2019 and February 2020. 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 Renal osteo
[2022-08-19] MEDS: MIDODRINE HCL 10 MG TABLET PO (14:24)
[2022-08-19 15:07] LABS: Reflex Lactic Acid Yes or No Add Lactic
[2022-08-19 15:10] LABS: Add Urine Microscopic? YES; Appearance Urine Cloudy (Clear); Bilirubin Urine 2+ (Negative); Blood Urine 3+ (Negative); Glucose Urine UA Negative (Negative); Ketones Urine Trace mg/dL (Negative); Leukocyte Esterase Ur 2+ LEU/UL (Negative); Nitrate Urine Positive (Negative); Protein Urine 3+ mg/dL (Negative); Specific Grav Ur 1.015 (1.001-1.035)
[2022-08-19 15:18] LABS: RBC Urine 21-50 /hpf (0-2); Squamous Epithelial Cell Urine Rare /hpf (Few)
[2022-08-19 15:20] LABS: Color Urine Dark Brown (Yellow)
--- NOTE | 2022-08-19 16:30 | PM.IMHP ---
H&P: HPI History of Present Illness Date/Time: 08/19/22 16:30 Chief Complaint: Low blood pressures at dialysis. Narrative: This is a pleasant 76-year-old male with paroxysmal atrial fibrillation on chronic anticoagulation, coronary artery disease, heart failure with preserved ejection fraction, end-stage renal disease on hemodialysis, anemia, diet-controlled diabetes, and other comorbidities who presented to the emergency department from dialysis for evaluation after he was found to have low blood pressures. He is known to the hospitalist service from a recent admission in mid July in which he was treated for culture negative endocarditis. He was discharged to [facility] for rehab where he remains however states he does not want to go back there. Since being a rehab he has not had a great appetite though he goes on to say he does not really like the food. He has been having loose stools every day, several times a day, which he describes as light brown-arriaza. He feels he has gotten more weak since he has been there and with standing he is getting lightheaded and dizzy and in fact this morning he felt as though he was going to pass out. At dialysis today his blood pressures were low and he was instead directed to the ER where his blood pressure was documented at 74/34. He is supposed to take midodrine 3 times a day and he is wondering if perhaps he did not get that this morning though he cannot confirm that. He was given a small fluid bolus and 10 milligrams midodrine with improvement in his blood pressures. He tested positive for SARS-CoV-2 by PCR but he has been persistently positive since July 29, 2022 and he is not really symptomatic although he does still have mild rhinorrhea and a cough occasionally productive of brown sputum. Given his diarrhea and elevated WBC count a CT of the abdomen and pelvis was ordered which incidentally showed a 4.9 x 8.9 centimeter hyperdense focus in the left psoas muscle likely representing hemorrhage. With further questioning the patient admits that he has been having some pain in the left side and hip for couple of days, worse with movement of the left leg. He has not had any falls or trauma but reports that ?staff is rough? at rehab. Currently he has no specific complaints and he is happy be admitted to the hospital so he does not have to go back to rehab. He denies fever, chills, sweats, chest pain, pleuritic pain, shortness of breath, nausea, vomiting, and dysuria (still urinates a small amount). Review of Systems Review of Systems: Twelve systems were reviewed and are negative except for as per HPI. [facility] Past Medical History Medical History (Updated 08/19/22 @ 23:26 by Maya Castorena PA-C) Anemia of chronic disease Arthritis Atrial fibrillation Cataracts, bilateral Maturing Cervical spinal stenosis Chronic anemia Coronary artery disease History of non STEMI in May 2018 status post drug-eluting stent to the LAD. 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 termite helper anticoagulation Diabetic peripheral neuropathy Diverticular hemorrhage Diverticulitis End-stage renal disease on hemodialysis Erythropoietin deficiency anemia Heart failure with preserved ejection fraction Echocardiogram in June 2019 showed a severely enlarged left atrial chamber, normal left ventricular size with moderate concentric left ventricular hypertrophy, left ventricular function is at the lower end of normal with an estimated ejection fraction 50-55% (although calculated at 63%), no wall motion abnormalities, moderate aortic valve calcification with no significant stenosis, moderate to moderately severe eccentric mitral valve regurgitation, mild tricuspid valve regurgitation, estimated pulmonary arterial systolic pressure of 32 mmHg, dilated inferior vena cava with <50% collapse upon inspiration consistent with elevated right atrial pressure, 10 mmHg., transesophageal echocardiogram September 2019 demonstrated moderate mitral valve regurgitation with st
--- NOTE | 2022-08-19 16:49 | PC.NURSE ---
Hospitalist PA at bedside to assess pt.
--- NOTE | 2022-08-19 17:02 | PC.NURSE ---
heart healthy dinner tray ordered
[2022-08-19 17:09] LABS: Hematocrit 31.4 % (42.0-52.0); Hemoglobin 9.9 g/dL (14.0-18.0)
[2022-08-19 17:21] LABS: Lactic Acid 1.7 mmol/L (0.7-2.0)
--- NOTE | 2022-08-19 17:51 | PCCCNOTE ---
Late entry: Met with patient and spouse in H2. Patient is un happy with care at [facility] and wanting to notify the state. The specific thing that he tells me Asked patient or if they have spoke with compensation administrator at facility and they have not since it has been the holidays. The SW has not been available either. They have not researched other facilities as they thought with [employer] insurance this is the only place. He has received physical therapy x3, but has been back to ED and facility at least once since admission. Provided patient and spouse with phone number for [facility] and the list of facilities that participate with [employer]. Educated that they could look at medicare reviews of the facilities on their smart phones which his had in her hand.
[2022-08-20] VITALS (18 sets, daily range): BP systolic 80–115; BP diastolic 44–83; PULSE 47–100; RESP 12–18; TEMP 36.3–37; O2SAT 67–93; BMI 27.1
[2022-08-20 00:33] LABS: Hematocrit 29.9 % (42.0-52.0); Hemoglobin 9.5 g/dL (14.0-18.0)
--- NOTE | 2022-08-20 01:59 | PC.NURSE ---
Unable to verify when home meds were last taken. No med rec sent. Nurse can call facility at [facility] if that information needs to be obtained,
--- NOTE | 2022-08-20 04:29 | ADMGEN ---
This patient, Elias Aguirre, was admitted to [facility] Surg Room 330-02. Patient/family oriented to hospital policies and general routines including ID bracelet, bed and alarms, visiting hours, pain management, procedures, bathroom and other care routines, personal items, smoking policy, room service/diet, and visiting hours. Information on how to activate the Rapid Response Team has been discussed. Patient/Family are encouraged to report perceived risks to care and to ask questions if they do not understand what they are told or what they should do.
[2022-08-20 07:31] LABS: Alanine Aminotransferase 43 U/L (6-50); Alkaline Phosphatase 59 U/L (38-126); Anion Gap 10 mmol/L (8-16); Aspartate Amino Transferase 33 U/L (17-59); Bilirubin,Total 1.9 mg/dL (0.2-1.3); Blood Urea Nitrogen 35 mg/dL (9-20); Calcium 8.4 mg/dL (8.4-10.2); Carbon Dioxide 26 mmol/L (22-30); Chloride 99 mmol/L (98-107); Estimated CRCL calculation 9 ml/min; Estimated Glomerular Filt Rate 10; Glucose 66 mg/dL (65-110); Magnesium 2.1 mg/dL (1.6-2.3); Potassium 3.3 mmol/L (3.4-5.0); Sodium 135 mmol/L (137-145)
[2022-08-20 07:35] LABS: Basophils Absolute Auto 0.1 K/mm3 (0.0-0.1); Basophils Percent Auto 0.5 % (0.2-1.2); Eosinophils Absolute Auto 0.1 K/mm3 (0-0.3); Eosinophils Percent Auto 1.1 % (0-4.4); Immature Granulocyte Absolute 0.46 K/mm3 (0.00-0.031); Immature Granulocyte Percent A 3.6 % (0-0.5); Lymphocytes Absolute Auto 0.96 K/mm3 (0.9-3.2); Lymphocytes Percent Auto 7.5 % (18.3-44.2); Mean Corpuscular Hemoglobin 33.2 pg (26-34); Mean Platelet Volume 10.7 fl (7.4-10.4); Monocytes Absolute Auto 0.8 K/mm3 (0.1-0.6); Monocytes Percent Auto 6.2 % (2.6-8.5); Neutrophils Absolute Auto 10.4 K/mm3 (1.3-6.7); Neutrophils Percent Auto 81.1 % (45.5-73.1); Platelet Count Result 170 k/mm3 (150-375); Red Blood Count 2.71 M/mm3 (4.6-6.20); Red Cell Distribution Width 18.1 % (11.5-14.5); White Blood Count 12.8 K/mm3 (4.5-10.0)
[2022-08-20 07:52] LABS: INR 1.8; Prothrombin Time 20.6 Seconds (11.1-14.7)
[2022-08-20 07:54] LABS: Partial Thromboplastin Time 41.5 SECONDS (22.3-36.8)
[2022-08-20] MEDS: MIDODRINE HCL 10 MG TABLET PO ×3 (08:57→17:26)
--- NOTE | 2022-08-20 10:18 | PM.PNNEP ---
Progress Note: A&P Assessment and Plan (1) End stage renal disease: Code(s): N18.6 - End stage renal disease Status: Chronic Assessment and Plan: missed HD yesterday so HD treatment today eventually tranistion back to M/W/F dialysis schedule follow electrolytes, volume status, and clearance FULL CONSULT TO FOLLOW Subjective Date/time seen: 08/20/22 10:18 Tolerating hemodialysis treatment at the time of my visit (seen on HD at ~ 10:00AM); BP/hemodynamics appear to be doing better; no apparent distress; does not want to go back to the facility that he came from. Exam Narrative: General: WD/WN elderly male in NAD Heart: IRRR; normal S1 and S2; no rub Lungs: decreased at bases Abdomen: soft, nontender, nondistended, positive bowel sounds Extremities: no cyanosis or clubbing; no edema Skin: warm and dry Objective Data Vital Signs Vital Signs: Vital Signs Temp Pulse Resp BP Pulse Ox O2 Del Method 08/20/22 08:00 Room Air 08/20/22 11:00 51 L 92/44 L 08/20/22 10:30 47 L 92/62 L 08/20/22 10:00 58 L 99/63 L 08/20/22 09:30 58 L 104/60 08/20/22 09:15 72 115/65 08/20/22 09:00 98.2 F 65 16 107/75 08/20/22 04:00 69 08/20/22 00:58 69 08/19/22 20:23 58 L 08/20/22 04:44 97.3 F L 100 18 90/67 L 67 L 08/19/22 22:30 Room Air 08/19/22 19:50 97.2 F L 78 16 111/78 98 08/19/22 19:01 58 L 12 109/80 08/19/22 19:00 58 L 11 L 08/19/22 18:48 63 17 08/19/22 18:46 62 105/79 08/19/22 18:40 62 08/19/22 18:16 50 L 18 107/64 08/19/22 18:01 58 L 21 H 110/66 08/19/22 17:57 64 10 L 102/64 08/19/22 17:46 64 19 08/19/22 17:34 61 15 08/19/22 17:15 60 20 08/19/22 17:00 66 23 H 08/19/22 16:46 63 18 128/82 08/19/22 16:45 67 19 08/19/22 16:32 62 23 H 08/19/22 16:31 66 20 126/92 H 08/19/22 16:22 65 18 104/81 08/19/22 16:21 76 16 73/57 L 08/19/22 16:16 62 14 119/88 08/19/22 16:15 64 17 08/19/22 16:01 66 20 129/77 08/19/22 16:00 72 15 08/19/22 15:54 79 21 H 08/19/22 15:53 66 16 131/92 H 100 08/19/22 15:52 64 15 93 08/19/22 15:32 64 18 08/19/22 15:31 64 21 H 117/79 08/19/22 15:16 61 21 H 122/81 08/19/22 15:15 57 L 19 100 08/19/22 15:00 57 L 20 08/19/22 14:45 82 25 H 08/19/22 14:33 62 20 08/19/22 14:31 67 15 115/71 08/19/22 14:17 81 94 08/19/22 14:14 78 17 100 08/19/22 14:01 61 15 104/76 100 08/19/22 13:53 62 16 08/19/22 13:32 62 08/19/22 13:31 66 17 109/87 08/19/22 13:17 72 18 91 08/19/22 13:16 74 18 102/69 95 08/19/22 13:15 71 15 97 08/19/22 13:02 64 99 08/19/22 13:01 68 20 93/67 L 100 08/19/22 12:45 69 15 100 08/19/22 12:30 63 15 08/19/22 12:27 60 18 142/69 H 100 08/19/22 12:12 98 08/19/22 11:47 59 L 19 08/19/22 11:46 72 18 92/66 L 08/19/22 11:45 65 20 08/19/22 11:31 74 17 71/54 L 08/19/22 11:30 67 19 Intake/Output Intake/Output: Intake & Output 08/17/22 08/18/22 08/19/22 08/20/22 23:59 23:59 23:59 23:59 Intake Total 1000 Balance 1000 Meds/Results Medications: Active Medications Generic Name Dose Route Start Last Admin Trade Name Freq PRN Reason Stop Dose Admin Epoetin Chance-epbx 10,000 units 08/20/22 16:00 Epoetin Chance-Epbx 10,000 Units/Ml Vial IV PUSH 08/20/22 16:01 ONCE ONE Acetaminophen 1,000 mg in 100 mls @ 400 mls/hr 08/19/22 16:51 Ofirmev 1,000 Mg Ivpb IVPB 08/20/22 16:50 Q6H PRN Mild Pain (1-3) or Fever Albumin Human 50 mls @ 999 mls/hr 08/20/22 07:15 Albutein IVPB 09/19/22 07:14 Q10M PRN HYPOTENSION Midodrine 10 mg 08/20/22 09:00 08/20/22 08:57 Midodrine Hcl 10 Mg T
[2022-08-20 11:07] LABS: Platelet Estimate Adequate (Adequate); Target Cells 1+ (NORMAL)
[2022-08-20 11:08] LABS: Crenated RBC 1+ (NORMAL); Schistocytes Rare (NORMAL); Spherocytes 1+ (NORMAL)
--- NOTE | 2022-08-20 11:23 | PM.CNGS ---
Assessment and Plan Assessment and plan (1) Nontraumatic psoas hematoma: Code(s): M79.81 - Nontraumatic hematoma of soft tissue Status: Acute Assessment and Plan: Brought into the ED for hypotension and found to have a left psoas muscle hematoma. No known trauma or fall prior to admission. He is currently on Eliquis, which has been held. Hemoglobin with slight decline since admission and down to 9.0 this morning. Blood pressures have improved. Would recommend to continue monitoring his H/H. Continue holding his anticoagulation, which will need to be held at least for a few weeks. No indication for surgical intervention at this time. Hopefully, this will resolve as his anticoagulation wears off, but if he continues to have issues with bleeding or becomes hemodynamically unstable, then he would ultimately need to be transferred to a tertiary care facility that has IR available for endovascular intervention or embolization. Thank you for allowing us to see the patient in consultation and we will continue to follow along with you. 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 (3) Atrial fibrillation: Code(s): I48.91 - Unspecified atrial fibrillation Status: Acute (4) End-stage renal disease on hemodialysis: Code(s): N18.6 - End stage renal disease; Z99.2 - Dependence on renal dialysis Status: Acute (5) Chronic anemia: Code(s): D64.9 - Anemia, unspecified Status: Acute Assessment and Plan: Continue to monitor H/H. (6) Hypotension: Code(s): I95.9 - Hypotension, unspecified Status: Acute (7) Lab test positive for detection of COVID-19 virus: Code(s): U07.1 - COVID-19 Status: Acute Assessment and Plan: Has tested positive since 07/29/22, currently asymptomatic. Not currently on any precautions. (8) CAD (coronary artery disease): Qualifiers: Coronary Disease-Associated Artery/Lesion type: [place] artery [place] vs. transplanted heart: [place] heart Associated angina: without angina Qualified Code(s): I25.10 - Atherosclerotic heart disease of [place] coronary artery without angina pectoris Code(s): I25.10 - Atherosclerotic heart disease of [place] coronary artery without angina pectoris Status: Acute (9) Congestive heart failure: Code(s): I50.9 - Heart failure, unspecified Status: Acute Plan I have discussed the patient's case and plan of care with Dr. Harris. History of Present Illness Consult details Consult date: 08/20/22 Reason for consult: other (Psoas muscle hematoma) Requesting physician: Nickie Cabral MD Narrative: This is a 77-year-old man with a history of paroxysmal atrial fibrillation and coronary artery disease on chronic anticoagulation, heart failure with preserved ejection fraction, anemia, diet-controlled diabetes, and other comorbidities who presented to the emergency department yesterday from dialysis for evaluation of low blood pressure. 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 He has resided there since discharge. He additionally has end-stage renal disease on hemodialysis. He was previously receiving peritoneal dialysis at home and still has a peritoneal dialysis catheter in place, but had decided to switch to hemodialysis. At the rehab facility, he reportedly had a poor appetite, loose stools, dizziness, lightheadedness, and generalized weakness. He also reports recently noticing left hip and left flank pain when lifting his left leg off the bed. Otherwise, he has not noticed any pain. He denies any recent trauma or falls. He was receiving physical therapy at rehab. In the ER, his blood pressure was 74/34. He was given a small IV fluid bolus and a dose of his midodrin
[2022-08-20] MEDS: SODIUM CHLORIDE 0.9% IV 1,000 ML 999 ML IV CONT (11:28)
[2022-08-20] MEDS: EPOETIN ALFA-EPBX 10,000 UNITS/ML VIAL 10000 UNITS IV PUSH (11:28)
--- NOTE | 2022-08-20 11:41 | PM.IMPN ---
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 (5) Chronic anemia: Code(s): D64.9 - Anemia, unspecified Status: Acute Assessment and Plan: Slightly lower than usual, monitor Baseline appears to be between 11 and 12, currently 9 today (6) Hypotension: Code(s): I95.9 - Hypotension, unspecified Status: Acute Assessment and Plan: An ongoing issue for this patient. Continue midodrine. Initiate fall precautions. (7) Lab test positive for detection of COVID-19 virus: Code(s): U07.1 - COVID-19 Status: Acute Assessment and Plan: COVID test has been positive since 07/29/2022. He is asymptomatic at this time. Plan DVT prophylaxis with SCDs GI prophylaxis not indicated Code status full code Subjective Date/time seen: 08/20/22 11:41 Interval history: No overnight events noted. No chest pain or shortness of breath. No nausea, vomiting or diarrhea. No fevers or chills. Review of Systems Review of Systems: 12 point review of systems was assessed and was negative except as noted in the HPI Exam Narrative: General: No acute distress, alert and oriented per baseline HEENT: Atraumatic, normocephalic, mucous membranes moist CV: Regular rate and rhythm, S1, S2 Lungs: Clear to auscultation bilaterally, no rales or crackles noted, no wheezes, good air entry Abdomen: Soft, nontender, nondistended Extremities: Normal to inspection Skin: No rashes noted, no lesions or wounds seen Psych: Euthymic, normal affect Objective Data Vital Signs Vital Signs: Vital Signs - 24 hr 08/19/22 11:45 08/19/22 11:46 08/19/22 11:47 Temperature Pulse Rate 65 72 59 L Respiratory Rate 20 18 19 Blood Pressure 92/66 L Pulse Oximetry Oxygen Delivery 08/19/22 12:12 08/19/22 12:27 08/19/22 12:30 Temperature Pulse Rate 60 63 Respiratory Rate 18 15 Blood Pressure 142/69 H Pulse Oximetry 98 100 Oxygen Delivery 08/19/22 12:45 08/19/22 13:01 08/19/22 13:02 Temperature Pulse Rate 69 68 64 Respiratory Rate 15 20 Blood Pressure 93/67 L Pulse Oximetry 100 100 99 Oxygen Delivery 08/19/22 13:15 08/19/22 13:16 08/19/22 13:17 Temperature Pulse Rate 71 74 72 Respiratory Rate 15 18 18 Blood Pressure 102/69 Pulse Oximetry 97 95 91 Oxygen Delivery 08/19/22 13:31 08/19/22 13:32 08/19/22 13:53 Temperature Pulse Rate 66 62 62 Respiratory Rate 17 16 Blood Pressure 109/87 Pulse Oximetry Oxygen Delivery 08/19/22 14:01 08/19/22 14:14 08/19/22 14:17 Temperature Pulse Rate 61 78 81 Respiratory Rate 15 17 Blood Pressure 104/76 Pulse Oximetry 100 100 94 Oxygen Delivery 08/19/22 14:31 08/19/22 14:33 08/19/22 14:45 Temperature Pulse Rate 67 62 82 Respiratory Rate 15 20 25 H Blood Pressure 115/71 Pulse Oximetry Oxygen Delivery 08/19/22 15:00 08/19/22 15:15 08/19/22 15:16 Temperature Pulse Rate 57 L 57 L 61 Respiratory Rate 20 19 21 H Blood Pressure 122/81 Pulse Oximetry 100 Oxygen Delivery 08/19/22 15:31 08/19/22 15:32 08/19/22 15:52 Temperature Pulse Rate 64
[2022-08-20 12:33] LABS: Hematocrit 25.6 % (42.0-52.0); Hemoglobin 8.1 g/dL (14.0-18.0)
--- NOTE | 2022-08-20 13:29 | PCHDNOTE ---
Post HD: BP 88/58, pt asymptomatic, no complaints of chest pain, dyspnea, cramps, dizziness, lightheadedness. Pt received 200NS bolus at beginning and end of tx for a total of 400ml NS. Dr. Reeves notified, no new orders given. Pt is due for next dose of midodrine.
[2022-08-20 17:14] LABS: Hematocrit 27.4 % (42.0-52.0); Hemoglobin 8.7 g/dL (14.0-18.0)
[2022-08-21 06:00] VITALS: BP 105/45; PULSE 55; RESP 12; TEMP 36.5; O2SAT 100
[2022-08-21 06:22] LABS: Basophils Absolute Auto 0.1 K/mm3 (0.0-0.1); Basophils Percent Auto 0.7 % (0.2-1.2); Eosinophils Absolute Auto 0.2 K/mm3 (0-0.3); Eosinophils Percent Auto 1.2 % (0-4.4); Hematocrit 25.4 % (42.0-52.0); Immature Granulocyte Absolute 0.32 K/mm3 (0.00-0.031); Immature Granulocyte Percent A 2.6 % (0-0.5); Lymphocytes Absolute Auto 1.19 K/mm3 (0.9-3.2); Lymphocytes Percent Auto 9.7 % (18.3-44.2); Mean Corpuscular HGB Conc 31.5 g/dl (32-36); Mean Corpuscular Hemoglobin 32.9 pg (26-34); Mean Corpuscular Volume 104.5 fl (80-100); Mean Platelet Volume 10.6 fl (7.4-10.4); Monocytes Absolute Auto 0.9 K/mm3 (0.1-0.6); Monocytes Percent Auto 7.1 % (2.6-8.5); Neutrophils Absolute Auto 9.6 K/mm3 (1.3-6.7); Neutrophils Percent Auto 78.7 % (45.5-73.1); Nucleated Red Blood Cells Perc 0.2 % (0.0-0.2); Platelet Count Result 160 k/mm3 (150-375); Red Blood Count 2.43 M/mm3 (4.6-6.20); Red Cell Distribution Width 18.4 % (11.5-14.5); White Blood Count 12.2 K/mm3 (4.5-10.0)
[2022-08-21 06:42] LABS: Alanine Aminotransferase 39 U/L (6-50); Albumin Level 2.7 g/dL (3.5-5.1); Alkaline Phosphatase 54 U/L (38-126); Anion Gap 7 mmol/L (8-16); Aspartate Amino Transferase 33 U/L (17-59); Blood Urea Nitrogen 15 mg/dL (9-20); Calcium 7.7 mg/dL (8.4-10.2); Carbon Dioxide 28 mmol/L (22-30); Chloride 99 mmol/L (98-107); Estimated CRCL calculation 19 ml/min; Estimated Glomerular Filt Rate 23; Glucose 70 mg/dL (65-110); Potassium 3.5 mmol/L (3.4-5.0); Sodium 134 mmol/L (137-145)
[2022-08-21] MEDS: calcitrioL 0.25 MCG CAPSULE PO (08:54)
[2022-08-21] MEDS: MIDODRINE HCL 10 MG TABLET PO ×3 (08:54→18:01)
[2022-08-21 11:15] VITALS: BP 101/61; PULSE 55; RESP 16; TEMP 36.3; O2SAT 98
[2022-08-21 11:20] VITALS: BP 103/63; PULSE 65; RESP 16; O2SAT 96
[2022-08-21 11:25] VITALS: BP 101/63; PULSE 55; RESP 16; O2SAT 96
--- NOTE | 2022-08-21 11:50 | PM.PNGS ---
Progress Note: A&P Assessment and Plan (1) Nontraumatic psoas hematoma: Code(s): M79.81 - Nontraumatic hematoma of soft tissue Status: Acute Assessment and Plan: Hgb still with slight drift down but remains stable. No signs of active bleeding. Blood pressure stable this morning. Keep anticoagulation on hold and continue monitoring. 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 (3) Atrial fibrillation: Code(s): I48.91 - Unspecified atrial fibrillation Status: Acute (4) End-stage renal disease on hemodialysis: Code(s): N18.6 - End stage renal disease; Z99.2 - Dependence on renal dialysis Status: Acute Assessment and Plan: Tolerated dialysis yesterday with IV fluid boluses and his midodrine. Nephrology following. (5) Chronic anemia: Code(s): D64.9 - Anemia, unspecified Status: Acute Assessment and Plan: See above. Hgb with slight drift down today but stable at 8.0. No signs of active bleeding. Eliquis on hold. (6) Hypotension: Code(s): I95.9 - Hypotension, unspecified Status: Acute Assessment and Plan: Improved (7) CAD (coronary artery disease): Qualifiers: Coronary Disease-Associated Artery/Lesion type: [place] artery [place] vs. transplanted heart: [place] heart Associated angina: without angina Qualified Code(s): I25.10 - Atherosclerotic heart disease of [place] coronary artery without angina pectoris Code(s): I25.10 - Atherosclerotic heart disease of [place] coronary artery without angina pectoris Status: Acute (8) Congestive heart failure: Code(s): I50.9 - Heart failure, unspecified Status: Acute Plan I have discussed the patient's case and plan of care with Dr. Harris. Subjective Subjective Date/Time Seen: 08/21/22 11:50 Patient reports: no new complaints and feels better Interval history: Feeling better today. He feels the left flank pain when lifting his left leg has improved some today. No dizziness or light-headedness. Review of Systems Review of Systems: All systems reviewed & are unremarkable except as noted in HPI and below Exam Const: General: comfortable, no acute distress and awake Orientation/consciousness: patient oriented x3 GI: Inspection: other (peritoneal dialysis catheter clamped with dressing dry and intact) GI Palp: Yes Soft to palpation, No Tenderness to palpation present (GI), No Guarding due to palpation present (GI) and No Rebound tenderness present Auscultation: normal bowel sounds Back/Spine/Pelvis: Back: No ecchymosis (no flank ecchymosis) and No back tenderness Psych: Mental Status: mental status grossly normal Insight: Good insight present (Psych) Objective Data Vital Signs Vital Signs: Vital Signs - 24 hr 08/20/22 12:00 08/20/22 12:00 08/20/22 12:30 Temperature Pulse Rate 59 L 74 61 Respiratory Rate Blood Pressure 90/55 L 80/46 L Pulse Oximetry Oxygen Delivery 08/20/22 12:45 08/20/22 13:00 08/20/22 15:17 Temperature 98.6 F 97.3 F L Pulse Rate 68 66 73 Respiratory Rate 16 16 Blood Pressure 113/83 88/58 L 108/69 Pulse Oximetry 91 Oxygen Delivery 08/20/22 20:50 08/20/22 21:33 08/21/22 06:00 Temperature 98.1 F 97.7 F Pulse Rate 72 55 L Respiratory Rate 12 12 Blood Pressure 98/61 L 105/45 L Pulse Oximetry 93 93 100 Oxygen Delivery Room Air 08/21/22 11:15 08/21/22 11:20 08/21/22 11:25 Temperature 97.4 F L Pulse Rate 55 L 65 55 L Respiratory Rate 16 16 16 Blood Pressure 101/61 103/63 101/63 Pulse Oximetry 98 96 96 Oxygen Delivery Intake/Output Intake/Output: Intake & Output 08/18/22 08/19/22 08/20/22 08/21/22 23:59 23:59 23:59 23:59 Intake Total 1000 360 120 Output Total 0 Balance 1000 360 120 Meds/Results
--- NOTE | 2022-08-21 12:10 | PM.CNNEP ---
Assessment and Plan Assessment and plan (1) End stage renal disease: Code(s): N18.6 - End stage renal disease Status: Chronic Assessment and Plan: HD tomorrow with eventual plan to transition back to M/W/F schedule follow electrolytes, volume status, and clearance (2) Hypotension: Code(s): I95.9 - Hypotension, unspecified Status: Chronic Assessment and Plan: chronic issue at baseline continue midodrine 3x/day follow trend of hemodyanics (3) Nontraumatic psoas hematoma: Code(s): M79.81 - Nontraumatic hematoma of soft tissue Status: Acute Assessment and Plan: incidentally noted on admission imaging H/H relatively stable no signs of active bleeding anticoagulation on hold General surgery recommendations noted (4) Congestive heart failure: Code(s): I50.9 - Heart failure, unspecified Status: Chronic Assessment and Plan: appears compensated at this time fluid removal with HD as tolerated (5) Atrial fibrillation: Code(s): I48.91 - Unspecified atrial fibrillation Status: Acute Assessment and Plan: rate controlled no rate controlling agents given due to previous issues with bradycardia anticoagulation on hold given #3 Will continue to follow History of Present Illness Reason for Consult Consult date: 08/21/22 Reason for consult: end stage renal disease Chief Complaint Chief complaint: psoas muscle hematoma, chronic anticoagulation, ES History of Present Illness Narrative: The patient is a 76-year-old male with a past medical history as outlined below who presented to [facility] Emergency room for further evaluation of hypotension. The patient presented to his regularly scheduled dialysis treatment on the day of admission for his outpatient dialysis treatment. He was noted be quite hypotensive with systolic BP is in the 70s. He did not appear to be any acute distress but given the severity of his hypotension, the dialysis staff transferred him to the emergency room for further assessment. Patient was just recently discharged from [facility] after being found to have COVID-19. During that hospital stay, he was not very symptomatic and was treated with conservative therapy. Eventually he was discharged to his current rehab facility. From what the patient tells me, his experience at this current rehab facility has been terrible and does not want to go back therapy. In any case, subsequent workup and evaluation emergency room did confirm his hypotension with a systolic BP in the 70s. Suspicion falls on his nursing facility not providing him is midodrine in a timely fashion as part of the reason for his low blood pressure but it did improved to the 100 systolics with a small fluid bolus in the emergency room. Subsequent laboratory findings were consistent with his known history of end-stage renal disease in association with some mild anemia. Given his on and off diarrhea complaints, he did have a CT scan of the abdomen pelvis which incidentally showed a 4.9 x 8.9 cm hyperdense focus in the left psoas muscle likely representing hemorrhage. On further questioning he did report some pain in that area but did not think much of it. Given these findings as well as his a for mentioned hypotension, he was admitted the hospital for further evaluation and therapy Since his admission, he received dialysis yesterday since he missed his scheduled dialysis treatment on Friday. He tolerated this treatment resume well and his blood pressure remained stable throughout the treatment. Renal consultation was requested due to his end-stage renal disease. The patient is quite well known to me as I have taken care of him multiple times here at [facility] for his dialysis needs. He normally dialyzes on a Friday, Friday, Friday dialysis schedule under the care of Dr. Ángel Sevilla at [facility]
[2022-08-21 14:00] VITALS: BP 98/64; PULSE 55; RESP 16; TEMP 36.3; O2SAT 97
--- NOTE | 2022-08-21 16:45 | PM.IMPN ---
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 No rate controlling agents given due to bradycardia. (4) End-stage renal disease on hemodialysis: Code(s): N18.6 - End stage renal disease; Z99.2 - Dependence on renal dialysis Status: Acute Assessment and Plan: Nephrology consulted. Continue dialysis per their instructions. (5) Chronic anemia: Code(s): D64.9 - Anemia, unspecified Status: Acute Assessment and Plan: Slightly lower than usual, monitor Baseline appears to be between 11 and 12, currently 8 today. Follow (6) Hypotension: Code(s): I95.9 - Hypotension, unspecified Status: Acute Assessment and Plan: An ongoing issue for this patient. Continue midodrine. Continue fall precautions. (7) Lab test positive for detection of COVID-19 virus: Code(s): U07.1 - COVID-19 Status: Acute Assessment and Plan: COVID test has been positive since 07/29/2022. He is asymptomatic at this time. Plan DVT prophylaxis with SCDs GI prophylaxis not indicated Code status full code Subjective Date/time seen: 08/21/22 16:45 Interval history: 76yo male with ESRD, CHF and AFib here for HoTN and found to have a psoas hematoma. Assuming care. Chart reviewed. Patient feeling better. No abdominal pain or back pain at rest. He does have some back pain when he moves left leg but this is improving. Plan for hemodialysis tomorrow. He is requesting discharge. Exam Narrative: General: No acute distress, alert and appropriate HEENT: Atraumatic, normocephalic, mucous membranes moist CV: Irregular rhythm, S1, S2 Lungs: Clear to auscultation bilaterally Chest: tunneled HD catheter in the right upper chest Abdomen: Soft, nontender, nondistended. PD cath site clean and dry Extremities: Normal to inspection Skin: No rashes noted, no lesions or wounds seen Psych: Euthymic, normal affect Objective Data Vital Signs Vital Signs: Vital Signs - 24 hr 08/20/22 20:50 08/20/22 21:33 08/21/22 06:00 Temperature 98.1 F 97.7 F Pulse Rate 72 55 L Respiratory Rate 12 12 Blood Pressure 98/61 L 105/45 L Pulse Oximetry 93 93 100 Oxygen Delivery Room Air 08/21/22 11:15 08/21/22 11:20 08/21/22 11:25 Temperature 97.4 F L Pulse Rate 55 L 65 55 L Respiratory Rate 16 16 16 Blood Pressure 101/61 103/63 101/63 Pulse Oximetry 98 96 96 Oxygen Delivery 08/21/22 14:00 Temperature 97.4 F L Pulse Rate 55 L Respiratory Rate 16 Blood Pressure 98/64 L Pulse Oximetry 97 Oxygen Delivery Intake/Output Intake/Output: Intake & Output 08/18/22 08/19/22 08/20/22 08/21/22 23:59 23:59 23:59 23:59 Intake Total 1000 360 120 Output Total 0 Balance 1000 360 120 Meds/Results Medications: Active Medications Generic Name Dose Route Start Last Admin Trade Name Freq PRN Reason Stop Dose Admin Bisacodyl 10 mg 08/20/22 11:59 Bisacodyl 10 Mg Suppository RECTAL DAILY PRN Constipation Calcitriol 0.25 mcg 08/21/22 09:00 08/21/22 08:54 Calcitriol 0.25 Mcg Capsule PO 0.25 mcg DAILY YING Administration Albumin Human 50 mls @ 999 mls/hr 08/20/22 07:15 Albutein IVPB 09/19/22 07:14 Q10M PRN HYPOTENSION Magnesium Hydroxide 30 ml 08/20/22 11:59 Magnesium Hydroxide Susp 30 Ml Udc PO DAILY PRN Constipation Midodrin
[2022-08-21 20:00] VITALS: BP 108/69; BP 111/69; PULSE 58; PULSE 70; RESP 14; TEMP 35.9; O2SAT 92; O2SAT 96
[2022-08-22] VITALS (18 sets, daily range): BP systolic 94–123; BP diastolic 46–84; PULSE 48–86; RESP 16–18; TEMP 35.9–36.6; O2SAT 96
[2022-08-22 06:49] LABS: Basophils Absolute Auto 0.1 K/mm3 (0.0-0.1); Basophils Percent Auto 0.8 % (0.2-1.2); Eosinophils Absolute Auto 0.2 K/mm3 (0-0.3); Eosinophils Percent Auto 1.5 % (0-4.4); Hematocrit 28.9 % (42.0-52.0); Immature Granulocyte Absolute 0.48 K/mm3 (0.00-0.031); Immature Granulocyte Percent A 4.1 % (0-0.5); Lymphocytes Percent Auto 9.5 % (18.3-44.2); Mean Corpuscular HGB Conc 31.1 g/dl (32-36); Mean Corpuscular Hemoglobin 34.1 pg (26-34); Mean Corpuscular Volume 109.5 fl (80-100); Mean Platelet Volume 10.2 fl (7.4-10.4); Monocytes Absolute Auto 0.7 K/mm3 (0.1-0.6); Neutrophils Absolute Auto 9.1 K/mm3 (1.3-6.7); Neutrophils Percent Auto 78.1 % (45.5-73.1); Nucleated Red Blood Cells Perc 0.3 % (0.0-0.2); Platelet Count Result 172 k/mm3 (150-375); Red Blood Count 2.64 M/mm3 (4.6-6.20); Red Cell Distribution Width 18.8 % (11.5-14.5); White Blood Count 11.6 K/mm3 (4.5-10.0)
[2022-08-22 07:03] LABS: Alanine Aminotransferase 41 U/L (6-50); Albumin Level 2.9 g/dL (3.5-5.1); Alkaline Phosphatase 60 U/L (38-126); Anion Gap 5 mmol/L (8-16); Aspartate Amino Transferase 36 U/L (17-59); Bilirubin,Total 2.5 mg/dL (0.2-1.3); Blood Urea Nitrogen 20 mg/dL (9-20); Calcium 7.9 mg/dL (8.4-10.2); Carbon Dioxide 32 mmol/L (22-30); Chloride 100 mmol/L (98-107); Estimated CRCL calculation 14 ml/min; Estimated Glomerular Filt Rate 16; Glucose 72 mg/dL (65-110); Potassium 3.8 mmol/L (3.4-5.0); Sodium 137 mmol/L (137-145)
[2022-08-22 07:29] LABS: Hypochromasia 1+ (NORMAL); Platelet Estimate Adequate (Adequate); Target Cells 1+ (NORMAL)
[2022-08-22 07:30] LABS: Crenated RBC 1+ (NORMAL); Schistocytes Rare (NORMAL)
[2022-08-22] MEDS: MIDODRINE HCL 10 MG TABLET PO ×3 (08:37→16:56)
[2022-08-22] MEDS: calcitrioL 0.25 MCG CAPSULE PO (08:37)
[2022-08-22 09:54] LABS: Hepatitis B Surface Antigen Negative (Negative)
[2022-08-22 10:13] LABS: Hepatitis B Surface Anti Res Positive
--- NOTE | 2022-08-22 10:57 | PCPTNOTE ---
Attempted PT evaluation, pt in dialysis. Will follow.
--- NOTE | 2022-08-22 11:04 | PCOTNOTE ---
Attempted to see pt. for occupational therapy evaluation. Pt. away from room for dialysis. Nursing aware.
--- NOTE | 2022-08-22 12:59 | PM.PNNEP ---
Progress Note: A&P Assessment and Plan (1) End stage renal disease: Code(s): N18.6 - End stage renal disease Status: Chronic Assessment and Plan: HD today with next treatment either tomorrow versus Friday if remoans hospitalized follow electrolytes, volume status, and clearance (2) Hypotension: Code(s): I95.9 - Hypotension, unspecified Status: Chronic Assessment and Plan: chronic issue at baseline continue midodrine 3x/day follow trend of hemodyanics (3) Nontraumatic psoas hematoma: Code(s): M79.81 - Nontraumatic hematoma of soft tissue Status: Acute Assessment and Plan: incidentally noted on admission imaging H/H relatively stable no signs of active bleeding anticoagulation on hold General surgery recommendations noted (4) Congestive heart failure: Code(s): I50.9 - Heart failure, unspecified Status: Chronic Assessment and Plan: appears compensated at this time fluid removal with HD as tolerated (5) Atrial fibrillation: Code(s): I48.91 - Unspecified atrial fibrillation Status: Acute Assessment and Plan: rate controlled no rate controlling agents given due to previous issues with bradycardia anticoagulation on hold given #3 Will continue to follow - not opposed to discharge from renal perspective if otherwise medically stable Subjective Date/time seen: 08/22/22 12:59 Tolerating hemodialysis treatment at the time of my visit (seen on HD at 12:50PM); no apparent issues or problems to report at this time; he feels quite well; eating and drinking okay; stable hemodynamics noted as well; no other acute issues/events overnight or earlier this AM. Exam Narrative: General: WD/WN elderly male in NAD Heart: IRRR; normal S1 and S2; no rub Lungs: decreased at bases Abdomen: soft, nontender, nondistended, positive bowel sounds Extremities: no cyanosis or clubbing; no edema Skin: warm and intact Objective Data Vital Signs Vital Signs: Vital Signs Temp Pulse Resp BP Pulse Ox O2 Del Method 08/22/22 12:40 70 95/48 L 08/22/22 12:20 71 100/53 L 08/22/22 12:00 68 98/52 L 08/22/22 11:40 48 L 94/52 L 08/22/22 11:20 64 104/63 08/22/22 11:00 65 99/62 L 08/22/22 10:40 48 L 104/60 08/22/22 10:36 59 L 100/60 08/22/22 10:22 97.9 F 66 18 95/59 L 08/22/22 05:58 96.6 F L 68 16 112/84 96 08/21/22 20:00 Room Air 08/21/22 20:00 96.7 F L 70 14 108/69 92 08/21/22 20:00 96.7 F L 58 L 14 111/69 96 Intake/Output Intake/Output: Intake & Output 08/19/22 08/20/22 08/21/22 08/22/22 23:59 23:59 23:59 23:59 Intake Total 1000 360 320 240 Output Total 0 300 Balance 1000 360 320 -60 Meds/Results Medications: Active Medications Generic Name Dose Route Start Last Admin Trade Name Freq PRN Reason Stop Dose Admin Bisacodyl 10 mg 08/20/22 11:59 Bisacodyl 10 Mg Suppository RECTAL DAILY PRN Constipation Calcitriol 0.25 mcg 08/21/22 09:00 08/22/22 08:37 Calcitriol 0.25 Mcg Capsule PO 0.25 mcg DAILY YING Administration Albumin Human 50 mls @ 999 mls/hr 08/20/22 07:15 Albutein IVPB 09/19/22 07:14 Q10M PRN HYPOTENSION Magnesium Hydroxide 30 ml 08/20/22 11:59 Magnesium Hydroxide Susp 30 Ml Udc PO DAILY PRN Constipation Midodrine 10 mg 08/20/22 09:00 08/22/22 12:20 Midodrine Hcl 10 Mg Tablet PO 10 mg TID YING Administration Ondansetron HCl 4 mg 08/19/22 16:51 Ondansetron Inj 4 Mg/2 Ml Vial IV PUSH Q4H PRN Nausea Radiology Results: ITS Impressions Chest X-Ray 08/19/22 11:36 IMPRESSION: 1. Small right pleural effusion. 2. Cardiomegaly. Abdomen/Pelvis CT 08/19/22 16:02 IMPRESSION: 4.9 x 8.9 cm hyperdense focus in the left psoas muscle likely representing hemorrhage, with intraperitoneal extension
--- NOTE | 2022-08-22 13:21 | PM.IMPN ---
Progress Note: A&P Assessment and Plan (1) Nontraumatic psoas hematoma: Code(s): M79.81 - Nontraumatic hematoma of soft tissue Status: Acute Assessment and Plan: Etiology unclear. Appreciate General surgery input. Hgb remaining stable. Continue to hold Eliquis. (2) Atrial fibrillation: Code(s): I48.91 - Unspecified atrial fibrillation Status: Acute Assessment and Plan: Rate controlled. No rate controlling agents given due to bradycardia. Anticoagulation on hold at this time. (3) End-stage renal disease on hemodialysis: Code(s): N18.6 - End stage renal disease; Z99.2 - Dependence on renal dialysis Status: Acute Assessment and Plan: Nephrology consulted. Continue dialysis per their instructions. (4) Chronic anemia: Code(s): D64.9 - Anemia, unspecified Status: Acute Assessment and Plan: Baseline appears to be between 11 and 12. Patient has acute blood loss anemia with chronic component. Hemoglobin low but stable in the 8-9 range. Continue to follow., (5) Hypotension: Code(s): I95.9 - Hypotension, unspecified Status: Acute Assessment and Plan: An ongoing issue for this patient. Continue midodrine. Continue fall precautions. (6) Lab test positive for detection of COVID-19 virus: Code(s): U07.1 - COVID-19 Status: Acute Assessment and Plan: COVID test has been positive since 07/29/2022. He is asymptomatic at this time. Plan DVT prophylaxis with SCDs Code status full code Subjective Date/time seen: 08/22/22 13:21 Interval history: 76yo male with ESRD, CHF and AFib here for HoTN and found to have a psoas hematoma. feeling great today. No complaints. No chest pain, shortness of breath or cough. currently undergoing dialysis Exam Narrative: AF 97.9 95/48 70 18 96% ra Gen - NARD Chest - clear anteriorly. nml RR. tunneled HD catheter in the right upper chest currently accessed CV - irregularly irregular Abd - Soft, NT/ND, Positive BS. PD cath site with small dark crusting Ext - No pedal edema Psych - Nml mood and affect. alert and appropriate Skin - Warm and dry Objective Data Vital Signs Vital Signs: Vital Signs - 24 hr 08/21/22 14:00 08/21/22 20:00 08/21/22 20:00 Temperature 97.4 F L 96.7 F L 96.7 F L Pulse Rate 55 L 58 L 70 Respiratory Rate 16 14 14 Blood Pressure 98/64 L 111/69 108/69 Pulse Oximetry 97 96 92 Oxygen Delivery 08/21/22 20:00 08/22/22 05:58 08/22/22 10:22 Temperature 96.6 F L 97.9 F Pulse Rate 68 66 Respiratory Rate 16 18 Blood Pressure 112/84 95/59 L Pulse Oximetry 96 Oxygen Delivery Room Air 08/22/22 10:36 08/22/22 10:40 08/22/22 11:00 Temperature Pulse Rate 59 L 48 L 65 Respiratory Rate Blood Pressure 100/60 104/60 99/62 L Pulse Oximetry Oxygen Delivery 08/22/22 11:20 08/22/22 11:40 08/22/22 12:00 Temperature Pulse Rate 64 48 L 68 Respiratory Rate Blood Pressure 104/63 94/52 L 98/52 L Pulse Oximetry Oxygen Delivery 08/22/22 12:20 08/22/22 12:40 Temperature Pulse Rate 71 70 Respiratory Rate Blood Pressure 100/53 L 95/48 L Pulse Oximetry Oxygen Delivery Intake/Output Intake/Output: Intake & Output 08/19/22 08/20/22 08/21/22 08/22/22 23:59 23:59 23:59 23:59 Intake Total 1000 360 320 240 Output Total 0 0 Balance 1000 360 320 240 Meds/Results Medications: Active Medications Generic Name Dose Route Start Last Admin Trade Name Freq PRN Reason Stop Dose Admin Bisacodyl 10 mg 08/20/22 11:59 Bisacodyl 10 Mg Suppository RECTAL DAILY PRN Constipation Calcitriol 0.25 mcg 08/21/22 09:00 08/22/22 08:37 Calcitriol 0.25 Mcg Capsule PO 0.25 mcg DAILY YING Administration Albumin Human 50 mls @ 999 mls/hr 08/20/22 07:15 Albutein IVPB 09/19/22 07:14 Q10M PRN HYPOTENSION Magnesium Hydroxide 30 ml 08/20/22
--- NOTE | 2022-08-22 14:01 | PM.PNGS ---
Progress Note: A&P Assessment and Plan (1) Nontraumatic psoas hematoma: Code(s): M79.81 - Nontraumatic hematoma of soft tissue Status: Acute Assessment and Plan: Hgb up to 9.0 this morning. No signs of active bleeding. Blood pressure remains stable. Okay from our standpoint to discharge the patient when okay with all other services. Would recommend to hold his anticoagulation for at least two weeks. (2) 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 snf anticoagulation: Code(s): Z79.01 - halfway (current) use of anticoagulants Status: Acute Assessment and Plan: Eliquis on hold, continue to hold on discharge for two weeks. (3) Atrial fibrillation: Code(s): I48.91 - Unspecified atrial fibrillation Status: Acute (4) End-stage renal disease on hemodialysis: Code(s): N18.6 - End stage renal disease; Z99.2 - Dependence on renal dialysis Status: Acute (5) Chronic anemia: Code(s): D64.9 - Anemia, unspecified Status: Acute (6) Hypotension: Code(s): I95.9 - Hypotension, unspecified Status: Acute (7) CAD (coronary artery disease): Qualifiers: Coronary Disease-Associated Artery/Lesion type: [place] artery Teller vs. transplanted heart: [place] heart Associated angina: without angina Qualified Code(s): I25.10 - Atherosclerotic heart disease of [place] coronary artery without angina pectoris Code(s): I25.10 - Atherosclerotic heart disease of [place] coronary artery without angina pectoris Status: Acute (8) Congestive heart failure: Code(s): I50.9 - Heart failure, unspecified Status: Acute Plan I have discussed the patient's case and plan of care with Dr. Harris. Subjective Subjective Date/Time Seen: 08/22/22 14:01 Patient reports: no new complaints, feels better and afebrile Interval history: Left flank and hip pain when lifting his left leg off the bed continues to improve daily. Patient seen in dialysis. No acute events overnight. Exam Const: General: comfortable and no acute distress Orientation/consciousness: patient oriented x3 GI: Inspection: non-distended GI Palp: Yes Soft to palpation, No Tenderness to palpation present (GI), No Guarding due to palpation present (GI) and No Rebound tenderness present Other: No left flank ecchymosis or tenderness Objective Data Vital Signs Vital Signs: Vital Signs - 24 hr 08/21/22 20:00 08/21/22 20:00 08/21/22 20:00 Temperature 96.7 F L 96.7 F L Pulse Rate 58 L 70 Respiratory Rate 14 14 Blood Pressure 111/69 108/69 Pulse Oximetry 96 92 Oxygen Delivery Room Air 08/22/22 05:58 08/22/22 10:22 08/22/22 10:36 Temperature 96.6 F L 97.9 F Pulse Rate 68 66 59 L Respiratory Rate 16 18 Blood Pressure 112/84 95/59 L 100/60 Pulse Oximetry 96 Oxygen Delivery 08/22/22 10:40 08/22/22 11:00 08/22/22 11:20 Temperature Pulse Rate 48 L 65 64 Respiratory Rate Blood Pressure 104/60 99/62 L 104/63 Pulse Oximetry Oxygen Delivery 08/22/22 11:40 08/22/22 12:00 08/22/22 12:20 Temperature Pulse Rate 48 L 68 71 Respiratory Rate Blood Pressure 94/52 L 98/52 L 100/53 L Pulse Oximetry Oxygen Delivery 08/22/22 12:40 08/22/22 13:00 08/22/22 13:20 Temperature Pulse Rate 70 60 86 Respiratory Rate Blood Pressure 95/48 L 96/50 L 98/64 L Pulse Oximetry Oxygen Delivery Intake/Output Intake/Output: Intake & Output 08/19/22 08/20/22 08/21/22 08/22/22 23:59 23:59 23:59 23:59 Intake Total 1000 360 320 240 Output Total 0 0 Balance 1000 360 320 240 Meds/Results Medications: Active Medications Generic Name Dose Route Start Last Admin Trade Name Freq PRN Reason Stop Dose Admin Bisacodyl 10 mg 08/20/22 11:59 Bisacodyl 10 Mg Suppository RECTAL DAILY PRN Constipation Calcitriol 0.25 mcg 08/21/22 09:00 08/22/22 08:37 Calcitriol 0.25 Mcg Capsule PO 0.25 mcg DAILY YING Administration A
[2022-08-23 06:00] VITALS: BP 114/76; PULSE 62; RESP 16; TEMP 36; O2SAT 97
[2022-08-23 07:07] LABS: Basophils Absolute Auto 0.1 K/mm3 (0.0-0.1); Basophils Percent Auto 0.9 % (0.2-1.2); Eosinophils Absolute Auto 0.3 K/mm3 (0-0.3); Eosinophils Percent Auto 2.2 % (0-4.4); Hematocrit 26.5 % (42.0-52.0); Hemoglobin 8.4 g/dL (14.0-18.0); Immature Granulocyte Absolute 0.48 K/mm3 (0.00-0.031); Lymphocytes Absolute Auto 1.14 K/mm3 (0.9-3.2); Lymphocytes Percent Auto 9.5 % (18.3-44.2); Mean Corpuscular HGB Conc 31.7 g/dl (32-36); Mean Corpuscular Hemoglobin 33.3 pg (26-34); Mean Corpuscular Volume 105.2 fl (80-100); Mean Platelet Volume 10.4 fl (7.4-10.4); Monocytes Absolute Auto 0.7 K/mm3 (0.1-0.6); Monocytes Percent Auto 6.1 % (2.6-8.5); Neutrophils Absolute Auto 9.3 K/mm3 (1.3-6.7); Neutrophils Percent Auto 77.3 % (45.5-73.1); Nucleated Red Blood Cells Absolute Auto 0.1 K/mm3 (0.0-0.012); Nucleated Red Blood Cells Perc 0.4 % (0.0-0.2); Platelet Count Result 171 k/mm3 (150-375); Red Blood Count 2.52 M/mm3 (4.6-6.20); Red Cell Distribution Width 19.1 % (11.5-14.5)
[2022-08-23 07:19] LABS: Alanine Aminotransferase 39 U/L (6-50); Albumin Level 2.8 g/dL (3.5-5.1); Alkaline Phosphatase 61 U/L (38-126); Anion Gap 3 mmol/L (8-16); Aspartate Amino Transferase 32 U/L (17-59); Bilirubin,Total 2.4 mg/dL (0.2-1.3); Blood Urea Nitrogen 8 mg/dL (9-20); Calcium 8.8 mg/dL (8.4-10.2); Carbon Dioxide 29 mmol/L (22-30); Chloride 101 mmol/L (98-107); Estimated CRCL calculation 21 ml/min; Estimated Glomerular Filt Rate 26; Glucose 74 mg/dL (65-110); Potassium 3.9 mmol/L (3.4-5.0); Sodium 133 mmol/L (137-145)
[2022-08-23 07:55] LABS: Glucose Point of Care 71 mg/dl (65-105)
[2022-08-23] MEDS: calcitrioL 0.25 MCG CAPSULE PO (08:10)
[2022-08-23] MEDS: MIDODRINE HCL 10 MG TABLET PO ×2 (08:16→12:57)
[2022-08-23 10:44] LABS: Anisocytosis 2+ (NORMAL); Macrocytosis 1+ (NORMAL); Platelet Estimate Adequate (Adequate); Schistocytes Rare (NORMAL)
[2022-08-23 10:45] LABS: Burr Cells 1+ (NORMAL); Hypochromasia 1+ (NORMAL); Poikilocytosis 1+ (NORMAL)
[2022-08-23 11:36] LABS: Glucose Point of Care 104 mg/dl (65-105)
--- NOTE | 2022-08-23 14:21 | PM.PNGS ---
Progress Note: A&P Assessment and Plan (1) Nontraumatic psoas hematoma: Code(s): M79.81 - Nontraumatic hematoma of soft tissue Status: Acute Assessment and Plan: H&H remains stable. No sign of persistent bleeding. Patient should stay off of his Eliquis for a couple of weeks if not discontinue it altogether. We will sign off. Can transfer SNF at [facility] when okay with hospitalist and Nephrology. Will sign off. 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 Subjective Subjective Date/Time Seen: 08/23/22 14:21 Patient reports: no new complaints, tolerating a regular diet and afebrile Interval history: No additional complaints. Only discomfort is in flexing his left hip which has been present since admission. This also is improving. Review of Systems Review of Systems: All systems reviewed & are unremarkable except as noted in HPI and below (HPI) Exam Const: General: cooperative, comfortable, alert, awake and acute distress Nutritional Appearance: average body habitus Orientation/consciousness: patient oriented x3 GI: Inspection: non-distended and other (No back, flank, or abdominal ecchymosis) GI Palp: Yes Soft to palpation and No Tenderness to palpation present (GI) Auscultation: normal bowel sounds Objective Data Vital Signs Vital Signs: Vital Signs - 24 hr 08/22/22 14:41 08/22/22 14:41 08/22/22 14:45 Temperature 36.3 C L Pulse Rate 74 Respiratory Rate 17 Blood Pressure 98/78 L 115/78 113/78 Pulse Oximetry 96 Oxygen Delivery 08/22/22 16:42 08/22/22 19:46 08/22/22 22:00 Temperature 35.9 C L Pulse Rate 64 Respiratory Rate 16 Blood Pressure 123/69 Pulse Oximetry 96 Oxygen Delivery Room Air Room Air 08/23/22 06:00 08/23/22 08:19 Temperature 36.0 C L Pulse Rate 62 Respiratory Rate 16 Blood Pressure 114/76 Pulse Oximetry 97 Oxygen Delivery Room Air Intake/Output Intake/Output: Intake & Output 08/20/22 08/21/22 08/22/22 08/23/22 23:59 23:59 23:59 23:59 Intake Total 360 320 360 120 Output Total 0 300 0 Balance 360 320 60 120 Meds/Results Medications: Active Medications Generic Name Dose Route Start Last Admin Trade Name Faith PRN Reason Stop Dose Admin Bisacodyl 10 mg 08/20/22 11:59 Bisacodyl 10 Mg Suppository RECTAL DAILY PRN Constipation Calcitriol 0.25 mcg 08/21/22 09:00 08/23/22 08:10 Calcitriol 0.25 Mcg Capsule PO 0.25 mcg DAILY YING Administration Albumin Human 50 mls @ 999 mls/hr 08/20/22 07:15 Albutein IVPB 09/19/22 07:14 Q10M PRN HYPOTENSION Magnesium Hydroxide 30 ml 08/20/22 11:59 Magnesium Hydroxide Susp 30 Ml Udc PO DAILY PRN Constipation Midodrine 10 mg 08/20/22 09:00 08/23/22 12:57 Midodrine Hcl 10 Mg Tablet PO 10 mg TID YING Administration Ondansetron HCl 4 mg 08/19/22 16:51 Ondansetron Inj 4 Mg/2 Ml Vial IV PUSH Q4H PRN Nausea Radiology Results: ITS Impressions Chest X-Ray 08/19/22 11:36 IMPRESSION: 1. Small right pleural effusion. 2. Cardiomegaly. Abdomen/Pelvis CT 08/19/22 16:02 IMPRESSION: 4.9 x 8.9 cm hyperdense focus in the left psoas muscle likely representing hemorrhage, with intraperitoneal extension along the left lateral conal fascia. Gallbladder hydrops. Urinary bladder wall thickening secondary to inadequate distention versus cystitis. Additional chronic and incidental findings detailed above. Urgent findings reported telephonically to Dr. Cabral by Dr. Jonas at 4:15 PM on 08/19/2022. Labs Labs: Laboratory Results - last 24 hr 08/23/22 08/23/22 08/23/22 06:40 06:40 07:40 WBC 12.0 H RBC 2.52 L Hgb 8.4 L Hct 26.5 L MCV 105.2 H MCH 33.3 MCHC 31.7 L
--- NOTE | 2022-08-23 15:14 | PM.DS ---
DS: Admitting Diagnosis Discharge Date 08/23/22 Admitting Diagnosis Hypotension DS: Discharge Diagnosis Discharge Diagnosis (1) Nontraumatic psoas hematoma: Code(s): M79.81 - Nontraumatic hematoma of soft tissue Status: Acute (2) Atrial fibrillation: Code(s): I48.91 - Unspecified atrial fibrillation Status: Acute (3) End-stage renal disease on hemodialysis: Code(s): N18.6 - End stage renal disease; Z99.2 - Dependence on renal dialysis Status: Acute (4) Chronic anemia: Code(s): D64.9 - Anemia, unspecified Status: Acute (5) Hypotension: Code(s): I95.9 - Hypotension, unspecified Status: Chronic (6) Lab test positive for detection of COVID-19 virus: Code(s): U07.1 - COVID-19 Status: Acute (7) Hypothyroidism: Qualifiers: Hypothyroidism type: acquired Qualified Code(s): E03.9 - Hypothyroidism, unspecified Code(s): E03.9 - Hypothyroidism, unspecified Status: Acute DS: Summary Hospital Course Reason for hospitalization: 76yo male with ESRD, CHF and AFib here for HoTN and found to have a psoas hematoma. Please see H&P for details Hospital Course: Patient presented to the ED from dialysis for evaluation after he was found to have low blood pressures. 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 At dialysis, his blood pressures was low documented at 74/34. Given that he was having diarrhea and had an elevated WBC count, a CT of the abdomen and pelvis was ordered which incidentally showed a 4.9 x 8.9 centimeter hyperdense focus in the left psoas muscle likely representing hemorrhage. Patient has been having some pain in the left side and hip for couple of days, worse with movement of the left leg. General surgery consulted but they recommended supportive care. Eliquis held. Hgb remained stable. For his Atrial fibrillation, his rate remained controlled. He does not take rate controlling agents due to bradycardia. Nephrology consulted for his End-stage renal disease on hemodialysis. We continued dialysis per their instructions. Baseline Hgb appears to be between 11 and 12.? Patient had acute blood loss anemia with a chronic component.? Hemoglobin low but stable in the 8-9 range here.? Patient has ongoing issues with hypotension. BP did improve here. We continued midodrine. COVID test has been positive since 07/29/2022 and was again positive on admission here. He remains asymptomatic at this time. He overall did well and was able to be discharged home on 08/23/22. TSH noted to be mildly elevated chronically; he was stared on low dose Synthroid given his hx of HoTN. Status at Discharge Cognitive/behavioral status at discharge: Stable Time Spent with Patient Time attestation: Total time spent providing and/or coordinating discharge services: 38 minutes Time spent: Greater than 30 minutes Exam Narrative: AF 114/76 62 16 97% ra Gen - NARD Chest - clear anteriorly and in the flanks. nml RR. tunneled HD catheter in the right upper chest CV - irregularly irregular Abd - Soft, NT/ND, Positive BS. PD cath in place Ext - No pedal edema Psych - Nml mood and affect. alert and appropriate Skin - Warm and dry DS: Data Data Completed and Pending Labs on day of discharge: Labs from last 24 hours 08/23/22 08/23/22 08/23/22 15:03 11:32 07:40 WBC RBC Hgb Hct MCV MCH MCHC RDW Plt Count MPV Immature Gran % (Auto) Neut % (Auto) Lymph % (Auto) [place] % (Auto) Eos % (Auto) Baso % (Auto) Lymph # (Auto) [place] # (Auto) Eos # (Auto) Baso # (Auto) Abs Immat Gran (auto) Absolute Neuts (auto) Absolute Nucleated RBC Nucleated RBC % Platelet Estimate Hypochromasia Poikilocytosis Anisocytosis Macrocytosis Petrona Ambreen
[2022-08-23 15:27] LABS: EDCOVIDSCREEN Negative (Negative)
== END 2022-08-23 15:45 ==
LOC: ANHED 11:18 → ANH3MEDSUR 19:04
PROVIDERS: Internal Medicine Nephrology; Physician Assistant; Student in an Organized Health Care Education/Training Program; Admitting Provider Internal Medicine; Emergency Provider General Practice; PCP Family Medicine; Visit Provider Internal Medicine
DX: M79.81 Nontraumatic hematoma of soft tissue (principal); I13.2 Hypertensive heart and chronic kidney disease with heart failure and with stage 5 chronic kidney disease, or end stage renal disease; E11.22 Type 2 diabetes mellitus with diabetic chronic kidney disease; N18.6 End stage renal disease; I50.30 Unspecified diastolic (congestive) heart failure; Z99.2 Dependence on renal dialysis; D63.1 Anemia in chronic kidney disease; Z20.822 Contact with and (suspected) exposure to COVID-19; I95.9 Hypotension, unspecified; U07.1 COVID-19; D72.829 Elevated white blood cell count, unspecified; I25.10 Atherosclerotic heart disease of native coronary artery without angina pectoris; Z95.5 Presence of coronary angioplasty implant and graft; K82.1 Hydrops of gallbladder; E11.42 Type 2 diabetes mellitus with diabetic polyneuropathy; E78.00 Pure hypercholesterolemia, unspecified; R94.31 Abnormal electrocardiogram [ECG] [EKG]; R00.1 Bradycardia, unspecified; J90 Pleural effusion, not elsewhere classified; E03.9 Hypothyroidism, unspecified; I48.91 Unspecified atrial fibrillation; K27.9 Peptic ulcer, site unspecified, unspecified as acute or chronic, without hemorrhage or perforation; N25.0 Renal osteodystrophy; J30.2 Other seasonal allergic rhinitis; Z85.520 Personal history of malignant carcinoid tumor of kidney; Z87.891 Personal history of nicotine dependence; Z79.01 Long term (current) use of anticoagulants; Z84.1 Family history of disorders of kidney and ureter; Z82.49 Family history of ischemic heart disease and other diseases of the circulatory system
CPT/HCPCS: 36415; 51701; 71045; 74176; 80053; 81001; 82948; 83605; 83735; 85014; 85018; 85025; 85610; 85730; 86706; 86850; 86900; 86901; 87040; 87086; 87340; 87426; 93005; 96360; 96361; 96374; 97110; 97161; 97166; 97530; 99285; A9270; C9803; G0257; G0378; J1644; J7030; J7040; P9047; Q5105; U0003; U0005

== ENCOUNTER 2022-09-05 15:44 | Inpatient (IN) | payer MEDICARE, SELFPAY ==
[2022-09-05] VITALS (14 sets, daily range): BP systolic 90–110; BP diastolic 57–97; PULSE 74–95; RESP 18–22; TEMP 36.3–36.6; O2SAT 90–101; BMI 26.9
--- NOTE | ~2022-09-05 | XR_ITS ---
EXAMINATION: XR chest 2V DATE: 09/05/2022 16:59 INDICATION: Shortness of breath. TECHNIQUE: Frontal and lateral views of the chest were obtained. COMPARISON: Chest single view 08/19/2022, CT abdomen and pelvis 08/19/22, chest CT 03/27/2022 FINDINGS: There are moderate-sized right and small left pleural effusions. There are airspace opaciti es in the mid and lower lung zones, right worse than left. No pneumothorax. Cardiomegaly is noted. Th ere is a right internal jugular central venous catheter with tip at superior cavoatrial junction. IMPRESSION: 1. Worsened moderate-sized right and small left pleural effusions. 2. Worsened airspace opacities in the mid and lower lung zones, right worse than left, consistent wit h atelectasis versus pneumonia. 3. Cardiomegaly. Reviewed, dictated and finalized at location A. TIONAL TRAINING DIRECTOR IMPRESSION: 1. Worsened moderate-sized right and small left pleural effusions. 2. Worsened airspace opacities in the mid and lower lung zones, right worse kvng n left, consistent with atelectasis versus pneumonia. 3. Cardiomegaly.
--- NOTE | ~2022-09-05 | XR_ITS ---
EXAMINATION: XR chest 1V portable DATE: 09/11/2022 10:29 INDICATION: Shortness of breath TECHNIQUE: frontal view of the chest was obtained. COMPARISON: Chest radiograph dated 09/08/2022 FINDINGS: Large-bore dual-lumen likely tunneled right internal jugular central venous catheter with distal tip at the superior cavoatrial junction. Defibrillator pad projects over the central chest. Hazy airspace opacity throughout the right lung consistent with enlarging now small to moderate-sized right pleural effusion with increasing blunting at the right costophrenic angle and new capping over the right apex. Opacities at the right lung base could represent associated atelectasis and/or pneum onia. Unchanged tiny left pleural effusion with blunting of the costophrenic and cardiophrenic angles . No pneumothorax. Cardiomegaly. IMPRESSION: 1. Increasing small to moderate right pleural effusion and unchanged tiny left pleural effusion. 2. Opacities at the right lower lung zone which could represent associated atelectasis or pneumonia. 3. Cardiomegaly. Reviewed, dictated and finalized at location B. ICAL SECURITY SPECIALIST IMPRESSION: 1. Increasing small to moderate right pleural effusion and unchanged tiny left pleural effusion. 2. Opacities at the right lower lung zone which could represent associated atel ectasis or pneumonia. 3. Cardiomegaly.
--- NOTE | ~2022-09-05 | CT_ITS ---
CT head without contrast Indication: Dizziness COMPARISON: 08/12/2022 Technique: Serial scans were obtained through the brain without the administration of contrast. Dose reduction technique was used on this scan by utilizing automated exposure control and iterative recon struction technique. The dose-length product (DLP) was 605.33 mGy-cm. Findings: There is no evidence of intracranial hemorrhage, mass lesion, or acute infarct. The ventri cles and subarachnoid spaces are dilated, consistent with mild to moderate atrophy. Low attenuation regions are seen within the periventricular white matter bilaterally, likely representing changes fro m chronic microvascular ischemic disease. There is no evidence of edema, mass effect or midline shif t. The visualized paranasal sinuses and mastoid air cells are clear. Impression: No intracranial hemorrhage, mass, or acute infarct. Atrophy and chronic white matter changes, as above. Reviewed, dictated and finalized at location M. IT INTERN Impression: No intracranial hemorrhage, mass, or acute infarct. Atrophy and chronic white matter changes, as above.
--- NOTE | ~2022-09-05 | XR_ITS ---
EXAMINATION: XR chest 2V DATE: 09/08/2022 09:49 INDICATION: Shortness of breath and dizziness. TECHNIQUE: Frontal and lateral views of the chest were obtained. COMPARISON: Chest 2 views 09/05/22, CT abdomen and pelvis 08/19/22 FINDINGS: There are moderate-sized right and small left pleural effusions. There are airspace opaciti es at right lung base. No pneumothorax. Cardiomegaly is noted. A right internal jugular central venou s catheter is seen with tip at the superior cavoatrial junction. IMPRESSION: 1. Stable moderate-sized right and small left pleural effusions. 2. Stable airspace opacities at right lung base, consistent with atelectasis versus pneumonia. 3. Cardiomegaly. Reviewed, dictated and finalized at location A. IMPRESSION: 1. Stable moderate-sized right and small left pleural effusions. 2. Stable airspace opacities at right lung base, consistent with atelectasis ve rsus pneumonia. 3. Cardiomegaly.
--- NOTE | 2022-09-05 16:07 | ECG_ITS ---
Measurements Intervals [place] Rate: 77 P: GA: 0 QRS: -49 QRSD: 137 T: 135 QT: 419 QTc: 477 Interpretive Statements ATRIAL FIBRILLATION VENTRICULAR PREMATURE COMPLEX LEFT AXIS DEVIATION LEFT BUNDLE BRANCH BLOCK BASELINE ARTIFACT- I, III, AVR, AVL, AVF, V4 ABNORMAL ECG COMPARED TO ECG 08/19/2022 12:05:52 HEART RATE HAS INCREASED Electronically Signed On 09-05-2022 16:54:10 BLEACHING SUPERVISOR by Vikram Ochoa D.O.
--- NOTE | 2022-09-05 16:14 | ED.DIZZY ---
HPI - Dizziness General Chief Complaint: Dizziness Stated Complaint: dizzy x 3-4 days Time Seen by Provider: 09/05/22 15:48 History of Present Illness HPI Narrative: Patient is a 77-year-old male with a history of orthostatic hypotension on midodrine, CKD on hemodialysis, recent hospitalization for iliopsoas hematoma, atrial fibrillation, Eliquis currently being held due to hematoma, HFpEF, here for evaluation of dizziness over the past 4 days. Patient states he describes a room spinning sensation when he turns his head or when he is sat up. States that the sensation lasted for minutes before resolving without intervention. He denies any blurry vision, headaches, nausea or vomiting. Denies history of previous similar sensation. Related Data Home Medications Medication Instructions Recorded Confirmed calcitriol 0.25 mcg capsule 0.25 mcg PO DAILY 11/12/21 08/20/22 furosemide 80 mg tablet 80 mg PO DAILY 03/27/22 08/20/22 bisacodyl 10 mg rectal suppository 10 mg RECTAL DAILY PRN Constipation 08/13/22 08/20/22 magnesium hydroxide 400 mg/5 mL 30 ml PO DAILY PRN Constipation 08/13/22 08/20/22 oral suspension (Milk of Magnesia) Allergies Allergy/AdvReac Type Severity Reaction Status Date / Time No Known Allergies Allergy Unknown Verified 08/20/22 01:56 Review of Systems Review of Systems: Gen.: Denies fevers or chills Eyes: Denies eye pain or visual change ENT: Denies congestion Respiratory: Denies shortness of breath or cough CV: Denies chest pain or palpitations GI: Denies abdominal pain nausea, emesis or diarrhea denies burning, urgency, frequency or hematuria Musculoskeletal: Denies back pain or muscle pain Neuro: Reports dizziness. Denies numbness, tingling, weakness or focal weakness Skin: Denies rash Except as documented, all other systems reviewed and negative [facility] Past Medical History Medical History Anemia of chronic disease Arthritis Atrial fibrillation Cataracts, bilateral Maturing Cervical spinal stenosis Chronic anemia Coronary artery disease History of non STEMI in May 2018 status post drug-eluting stent to the LAD. 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 mcc anticoagulation Diabetic peripheral neuropathy Diverticular hemorrhage Diverticulitis End-stage renal disease on hemodialysis Erythropoietin deficiency anemia Heart failure with preserved ejection fraction Echocardiogram in June 2019 showed a severely enlarged left atrial chamber, normal left ventricular size with moderate concentric left ventricular hypertrophy, left ventricular function is at the lower end of normal with an estimated ejection fraction 50-55% (although calculated at 63%), no wall motion abnormalities, moderate aortic valve calcification with no significant stenosis, moderate to moderately severe eccentric mitral valve regurgitation, mild tricuspid valve regurgitation, estimated pulmonary arterial systolic pressure of 32 mmHg, dilated inferior vena cava with <50% collapse upon inspiration consistent with elevated right atrial pressure, 10 mmHg., transesophageal echocardiogram September 2019 demonstrated moderate mitral valve regurgitation with stable EF Hypercholesteremia Hypertension Hypothyroidism Kidney stones (~2008) Mitral regurgitation Paroxysmal atrial fibrillation Status post cardioversion in October 2019 and February 2020. 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 Hemoglobin A1c 5.7 11/13/2020 Surgical History Surgical History History of appendectomy 1974 History of cardiac catheterization (~05/2018) Totally occlude LAD status post drug-eluting stent. Additional findings include high-grade stenosis of non dominant left circumflex, diffuse disease of the ramus intermedius,
[2022-09-05] MEDS: MECLIZINE HCL 12.5 MG TABLET PO (16:31)
[2022-09-05 16:47] LABS: Basophils Percent Auto 0.2 % (0.2-1.2); Eosinophils Percent Auto 0.3 % (0-4.4); Hematocrit 30.6 % (42.0-52.0); Hemoglobin 9.7 g/dL (14.0-18.0); Immature Granulocyte Absolute 0.22 K/mm3 (0.00-0.031); Immature Granulocyte Percent A 1.7 % (0-0.5); Mean Corpuscular HGB Conc 31.7 g/dl (32-36); Mean Corpuscular Hemoglobin 34.8 pg (26-34); Mean Corpuscular Volume 109.7 fl (80-100); Mean Platelet Volume 10.9 fl (7.4-10.4); Monocytes Absolute Auto 0.8 K/mm3 (0.1-0.6); Monocytes Percent Auto 6.1 % (2.6-8.5); Neutrophils Absolute Auto 10.9 K/mm3 (1.3-6.7); Neutrophils Percent Auto 84.7 % (45.5-73.1); Nucleated Red Blood Cells Perc 0.2 % (0.0-0.2); Platelet Count Result 214 k/mm3 (150-375); Red Blood Count 2.79 M/mm3 (4.6-6.20); Red Cell Distribution Width 21.6 % (11.5-14.5); White Blood Count 12.9 K/mm3 (4.5-10.0)
[2022-09-05 16:59] LABS: Alanine Aminotransferase 25 U/L (6-50); Albumin Level 3.1 g/dL (3.5-5.1); Alkaline Phosphatase 80 U/L (38-126); Anion Gap 11 mmol/L (8-16); Aspartate Amino Transferase 27 U/L (17-59); Bilirubin,Total 1.8 mg/dL (0.2-1.3); Blood Urea Nitrogen 17 mg/dL (9-20); Calcium 7.9 mg/dL (8.4-10.2); Carbon Dioxide 26 mmol/L (22-30); Chloride 100 mmol/L (98-107); Estimated CRCL calculation 18 ml/min; Estimated Glomerular Filt Rate 22; Glucose 123 mg/dL (65-110); Magnesium 1.9 mg/dL (1.6-2.3); Phosphorus 3.6 mg/dL (2.5-4.5); Sodium 137 mmol/L (137-145)
[2022-09-05 17:15] LABS: Troponin I 0.219 ng/mL (0.000-0.034)
[2022-09-05 17:33] LABS: Influenza A QL RT-PCR Negative (Negative); Influenza B QL RT-PCR Negative (Negative); SARS-CoV-2 RNA PCR Positive
[2022-09-05 17:33] LABS: Platelet Estimate Adequate (Adequate); Schistocytes None Seen (NORMAL)
[2022-09-05 17:34] LABS: Anisocytosis 3+ (NORMAL); Hypochromasia 1+ (NORMAL)
[2022-09-05 17:58] LABS: Lactic Acid Reflex 2.1 mmol/L (0.7-2.0)
--- NOTE | 2022-09-05 19:11 | PM.IMHP ---
H&P: HPI History of Present Illness Date/Time: 09/05/22 19:11 Chief Complaint: Dizziness Narrative: This is a 77-year-old male patient who has a history of orthostatic hypotension on midodrine. He also has chronic kidney disease on dialysis Friday and Friday. He has a history of atrial fibrillation but Eliquis is on hold due to a recent iliopsoas hematoma. The patient stated that he has been dizzy over the last 4 days. He feels like the room is spinning. When he turns his head or sits up he becomes very dizzy and has stated laying down. The patient covered his eyes and was lying very still and that the only way to stop the dizziness. He denied any blurred vision headaches nausea vomiting. The patient had a chest x-ray that shows the followingWorsened moderate-sized right and small left pleural effusions. 2. Worsened airspace opacities in the mid and lower lung zones, right worse than left, consistent with atelectasis versus pneumonia. 3. Cardiomegaly. Nephrology has been consulted. The patient was given Antivert, Levaquin, and cefepime. Dr. Reeves has been consulted. His white count is noted to be 12.9 however his white count is typically elevated. His potassium was noted to be 3.0. Lactic acid was 2.4. Troponin is 0.219 and his BNP is greater than 30,000. His influenza a and B are negative and his COVID is positive. The patient has been positive for COVID since 08/08/2022. The patient is being admitted for observation status on the date of service of 09/05/2022 Review of Systems Review of Systems: See HPI All systems reviewed & are unremarkable except as noted in HPI and below Constitutional: Constitutional: Reports as per HPI and Reports no additional constitutional complaints Eyes: Eyes: Reports as per HPI and Reports no additional eye complaints ENT: Reports system reviewed and no additional complaints, except as documented and Reports Normal hearing present Cardiovascular: Cardiovascular: Reports no additional cardiovascular complaints Respiratory: Respiratory: Reports no additional respiratory complaints and Reports no additional respiratory complaints Gastrointestinal: Gastrointestinal: Reports as per HPI and Reports no additional gastrointestinal complaints Musculoskeletal: Musculoskeletal: Reports no additional musculoskeletal complaints Integumentary/Breasts: Skin/Breast: Reports system reviewed and no additional complaints, except as docu and Reports as per HPI Neurologic: Reports system reviewed and no additional complaints, except as documented, Reports as per HPI and Reports Normal hearing present Psychiatric: Psychiatric: Reports no additional psychiatric complaints and Reports as per HPI Endocrine: Endocrine: Reports no additional endocrine complaints Hematologic/Lymphatic: Hematologic/Lymphatic: Reports no additional hematologic/lymphatic complaints Allergic/Immunologic: Allergic/Immunologic: Reports no additional allergic/immunologic complaints [facility] Past Medical History Medical History Anemia of chronic disease Arthritis Atrial fibrillation Cataracts, bilateral Maturing Cervical spinal stenosis Chronic anemia Coronary artery disease History of non STEMI in May 2018 status post drug-eluting stent to the LAD. 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 halfway anticoagulation Diabetic peripheral neuropathy Diverticular hemorrhage Diverticulitis End-stage renal disease on hemodialysis Erythropoietin deficiency anemia Heart failure with preserved ejection fraction Echocardiogram in June 2019 showed a severely enlarged left atrial chamber, normal left ventricular size with moderate concentric left ventricular hypertrophy, left ventricular function is at the lower end of normal with an estimated ejection fraction 50-55% (although calculated at 63%), no wall motion abnormalities, moderate aortic valve calcification with no significant stenosis, moderate to m
[2022-09-05 19:50] LABS: NT Pro B Type Natriuretic Pept > 30000 pg/mL (19.9-100)
[2022-09-05] MEDS: levoFLOXacin 500 MG/D5W 100 ML 500 MG/100 ML BAG 100 MG IVPB (20:16)
[2022-09-05 20:41] LABS: Reflex Lactic Acid Yes or No Add Lactic
--- NOTE | 2022-09-05 21:00 | ADMGEN ---
This patient, Elias Aguirre, was admitted to IMU Room 211-01 at 2100. Patient/family oriented to hospital policies and general routines including ID bracelet, bed and alarms, visiting hours, pain management, procedures, bathroom and other care routines, personal items, smoking policy, room service/diet, and visiting hours. Information on how to activate the Rapid Response Team has been discussed. Patient/Family are encouraged to report perceived risks to care and to ask questions if they do not understand what they are told or what they should do.
[2022-09-05 21:38] LABS: Lactic Acid 2.4 mmol/L (0.7-2.0)
[2022-09-05] MEDS: POTASSIUM CHLORIDE 10 MEQ TABLET PO (23:48)
[2022-09-05] MEDS: MAGNESIUM SULF 1 GM/D5W 100 ML 1 GM/100 ML BAG IVPB (23:48)
[2022-09-06] VITALS (34 sets, daily range): BP systolic 87–109; BP diastolic 25–70; PULSE 66–117; RESP 16–20; TEMP 35.7–36.7; O2SAT 91–98
[2022-09-06] MEDS: ALBUMIN HUMAN 25% 25 GM/100 ML 100 ML IVPB (02:16)
[2022-09-06] MEDS: MIDODRINE HCL 10 MG TABLET PO ×4 (02:17→17:12)
[2022-09-06] MEDS: IPRATROPIUM BR 0.02% INH SOLN 0.5 MG/2.5 ML VIAL INHALATION ×2 (03:19→09:01)
[2022-09-06] MEDS: ALBUTEROL SULFATE NEB 2.5 MG/3 ML INH INHALATION ×2 (03:20→09:01)
[2022-09-06 05:12] LABS: Basophils Absolute Auto 0.1 K/mm3 (0.0-0.1); Basophils Percent Auto 0.5 % (0.2-1.2); Eosinophils Absolute Auto 0.2 K/mm3 (0-0.3); Eosinophils Percent Auto 1.4 % (0-4.4); Hemoglobin 9.1 g/dL (14.0-18.0); Immature Granulocyte Absolute 0.22 K/mm3 (0.00-0.031); Immature Granulocyte Percent A 1.9 % (0-0.5); Lymphocytes Absolute Auto 1.41 K/mm3 (0.9-3.2); Mean Corpuscular HGB Conc 30.3 g/dl (32-36); Mean Corpuscular Hemoglobin 34.1 pg (26-34); Mean Corpuscular Volume 112.4 fl (80-100); Mean Platelet Volume 10.3 fl (7.4-10.4); Monocytes Absolute Auto 0.8 K/mm3 (0.1-0.6); Monocytes Percent Auto 7.2 % (2.6-8.5); Nucleated Red Blood Cells Perc 0.2 % (0.0-0.2); Platelet Count Result 191 k/mm3 (150-375); Red Blood Count 2.67 M/mm3 (4.6-6.20); Red Cell Distribution Width 21.2 % (11.5-14.5); White Blood Count 11.7 K/mm3 (4.5-10.0)
[2022-09-06 05:24] LABS: Alanine Aminotransferase 22 U/L (6-50); Albumin Level 2.8 g/dL (3.5-5.1); Alkaline Phosphatase 73 U/L (38-126); Anion Gap 10 mmol/L (8-16); Aspartate Amino Transferase 25 U/L (17-59); Bilirubin,Total 1.9 mg/dL (0.2-1.3); Blood Urea Nitrogen 19 mg/dL (9-20); Carbon Dioxide 23 mmol/L (22-30); Chloride 102 mmol/L (98-107); Estimated CRCL calculation 17 ml/min; Estimated Glomerular Filt Rate 20; Glucose 117 mg/dL (65-110); Magnesium 2.3 mg/dL (1.6-2.3); Phosphorus 3.7 mg/dL (2.5-4.5); Potassium 3.4 mmol/L (3.4-5.0); Sodium 135 mmol/L (137-145)
[2022-09-06 05:32] LABS: Lactic Acid Reflex 2.2 mmol/L (0.7-2.0)
[2022-09-06] MEDS: LEVOTHYROXINE SODIUM 25 MCG TABLET PO (06:32)
[2022-09-06 08:33] LABS: Free T4 Free Thyroxine Reflex 2.43 ng/dL (0.78-2.19)
[2022-09-06] MEDS: BUDESONIDE RESPULE NEB 0.5 MG/2 ML AMP INHALATION (09:01)
[2022-09-06] MEDS: MECLIZINE HCL 6.25 MG TABLET PO ×3 (09:40→17:11)
[2022-09-06] MEDS: ACIDOPHILUS/BULGARICUS CHEWABLE TABLET 1 TABLET PO (09:41)
[2022-09-06] MEDS: CHOLECALCIFEROL 400 UNITS TABLET (VIT D) PO (09:41)
--- NOTE | 2022-09-06 10:13 | PM.IMPN ---
Progress Note: A&P Assessment and Plan (1) Pneumonia: Code(s): J18.9 - Pneumonia, unspecified organism Status: Acute (2) Hypotension: Code(s): I95.9 - Hypotension, unspecified Status: Acute (3) Lab test positive for detection of COVID-19 virus: Code(s): U07.1 - COVID-19 Status: Acute (4) Atrial fibrillation: Code(s): I48.91 - Unspecified atrial fibrillation Status: Acute (5) Acute metabolic encephalopathy: Code(s): G93.41 - Metabolic encephalopathy Status: Acute (6) ESRD on dialysis: Code(s): N18.6 - End stage renal disease; Z99.2 - Dependence on renal dialysis Status: Acute (7) Anemia: Code(s): D64.9 - Anemia, unspecified Status: Chronic Plan IV fluid resuscitation BP 90/60 HR 73 M blood pressure monitor lactic acid levels Repeat CBC CMP Two sets of Blood cultures urine cultures pending results CXR Pneumonia Monitor albumin' Monitoring of mental status. Steroids suggested if septic shock on his positive fluid resuscitation and vasopressors. IV antibiotics cefepime and vancomycin CRF currently on dialysis Potassium of 3.4 Creatinine 3.0 Lactic acid 2.2 And gentle hydration. Avoid nephrotoxic drugs. Monitor antihypertensive drugs Avoid NSAIDs. Routine CMP monitor GFR. Monitor electrolytes potassium levels. Dose antibiotics depending on creatinine clearance concrete engineering technician recommended ANEMIA Secondary to chronic renal failure. Monitor on arm also a doctor or Iron supplement if needed Check for chronic renal failure History of atrial fibrillation Not on anticoagulation secondary to ileus muscle hematoma. Monitor heart rate and blood pressure History history of hypothyroidism will resume Synthroid Subjective Date/time seen: 09/06/22 10:13 Interval history: Patient denies any complain no chest pain shortness on breath Exam Narrative: GENERAL: Well appearing, well-nourished, non-toxic, in no acute distress. HEAD: Normocephalic, atraumatic. NECK: Supple. No adenopathy, no masses. RESPIRATORY: Airway patent, respirations nonlabored. Clear to auscultation bilaterally, no rales, rhonchi, wheezing. CARDIOVASCULAR: IRRegular rate and rhythm without murmurs, rubs, or gallops. Peripheral pulses 2+ and equal bilaterally. ABDOMINAL: Soft, nontender, nondistended, no hepatosplenomegaly. Normoactive BS. MUSCULOSKELETAL: no Epigastric and no hypochondrial tenderness SKIN: Warm, dry, normal color. No rashes. NEURO: A&O X3. Moves all extremities PSYCHIATRIC: Appropriate mood and affect. Normal interaction. Objective Data Vital Signs Vital Signs: Vital Signs - 24 hr 09/05/22 15:56 09/05/22 16:25 09/05/22 16:28 Temperature Pulse Rate 86 81 82 Respiratory Rate 22 H Blood Pressure 100/76 104/57 L Pulse Oximetry 101 H Oxygen Delivery Room Air Oxygen Flow Rate 09/05/22 16:30 09/05/22 17:15 09/05/22 17:45 Temperature 36.6 C Pulse Rate 75 76 Respiratory Rate 18 20 Blood Pressure 110/97 H 101/72 Pulse Oximetry 94 100 Oxygen Delivery Oxygen Flow Rate 09/05/22 18:15 09/05/22 18:45 09/05/22 19:15 Temperature Pulse Rate 83 78 86 Respiratory Rate 20 20 21 H Blood Pressure 101/72 98/79 L 98/72 L Pulse Oximetry 98 100 100 Oxygen Delivery Oxygen Flow Rate 09/05/22 20:18 09/05/22 20:35 09/05/22 21:14 Temperature Pulse Rate 84 95 95 Respiratory Rate 20 18 18 Blood Pressure 90/74 L 95/67 L Pulse Oximetry 93 100 100 Oxygen Delivery Room Air Oxygen Flow Rate 09/05/22 21:00 09/05/22 22:00 09/06/22 00:00 Temperature 36.3 C L 35.7 C L Pulse Rate 74 81 74 Respiratory Rate 22 H 16 Blood Pressure 100/62 89/65 L Pulse Oximetry 90 97 Oxygen Delivery Oxygen Flow Rate 09/06/22 00:00 09/06/22 00:00 09/06/22 04:14 Temperature Pulse Rate 71 71 Respiratory Rate 16 Blood Pressure Pulse Oximetry 97 95 Oxygen Delivery Room Air Nasal Michelle
--- NOTE | 2022-09-06 13:27 | PC.NURSE ---
1240 to dialysis room for treatment via bed accompanied by staff
--- NOTE | 2022-09-06 13:36 | PM.CNNEP ---
Assessment and Plan Assessment and plan (1) End stage renal disease: Code(s): N18.6 - End stage renal disease Status: Chronic Assessment and Plan: HD today continue Friday, Friday, Friday dialysis schedule follow electrolytes, volume status, and clearance (2) Pneumonia: Code(s): J18.9 - Pneumonia, unspecified organism Status: Acute Assessment and Plan: as suggested by admission imaging follow culture data on antibiotic therapy breathing treatments PRN postCOVID-19 infection (3) BPV (benign positional vertigo): Code(s): H81.10 - Benign paroxysmal vertigo, unspecified ear Status: Acute Assessment and Plan: exacerbated by hypotension(?) started on meclizine follow symptoms (4) Hypotension: Code(s): I95.9 - Hypotension, unspecified Status: Acute Assessment and Plan: chronic issues at baseline resume midodrine therapy follow BP readings (5) Chronic anemia: Code(s): D64.9 - Anemia, unspecified Status: Acute Assessment and Plan: due to ESRD Epogen with HD follow H/H Will continue to follow. History of Present Illness Reason for Consult Consult date: 09/06/22 Reason for consult: end stage renal disease Chief Complaint Chief complaint: pneumonia, sepsis History of Present Illness Narrative: The patient is a 77-year-old male with a past medical history as outlined below who presented to [facility] Emergency room for further evaluation of dizziness. The patient reports dizziness over last 4 days and describes cessation as the room is spinning. When he turns his head or sits up suddenly he becomes very dizzy and states that he has to lay down for fear of falling. He furthermore states that when he covered his eyes and stays very still, the dizziness seems to resolve on its own. He reports no blurry vision, headaches nausea, vomiting, or any other subjective symptoms. Given these ongoing symptoms, he presented to the ER for further assessment. Workup and evaluation emergency room demonstrated the patient was a bit more hypotensive than his baseline chronic hypotension in the 70 systolic range. Routine blood test demonstrated labs consistent with his known history of end-stage renal disease although his white count was a bit elevated at 12.9 and his lactic acid was 2.4. His BNP was greater than 30,000. his chest x-ray demonstrated worsening moderate sized right and small left pleural effusions cardiomegaly, and worsened airspace opacities in the mid lower lung zones right worse than left consistent with atelectasis versus pneumonia. Given his symptoms on presentation and these laboratory/imaging findings, he was admitted the hospital for further evaluation and therapy. Since admission, appropriate cultures have been obtained and he was started on broad-spectrum IV antibiotic therapy. His issues with dizziness / lightheadedness seem to improve with a IV fluid bolus that he was given in the emergency room. Renal consultation was requested due to his end-stage renal disease. The patient is quite well known to me as I have taken care of him multiple times here at [facility] for his dialysis needs in the last few months.. He normally dialyzes on a Friday, Friday, Friday dialysis schedule under the care of Dr. Ángel Sevilla at [facility]. Aside from his relative hypotension that usually is relatively stable with the use of midodrine therapy, his dialysis treatments have been fairly uneventful and he has relative stability in his CKD parameters with regard to his volume status, clearance, electrolytes...etc. At the time of my visit, he is currently receiving dialysis appears to be tolerating fairly well (he was seen on dialysis at 1:20PM) Currently, at the time my evaluation, he appears to be in no acute distress. Review of Systems Review of Systems: As per HPI.
[2022-09-06] MEDS: SODIUM CHLORIDE 0.9% IV 1,000 ML 999 ML IV CONT (14:06)
[2022-09-06] MEDS: ALBUMIN HUMAN 25% 12.5 GM/50ML 50 ML 50 GM (14:06)
[2022-09-06] MEDS: EPOETIN ALFA-EPBX 10,000 UNITS/ML VIAL 10000 UNITS IV PUSH (14:07)
--- NOTE | 2022-09-06 15:10 | PCOTNOTE ---
Attempted to see for OT evaluation. Patient in dialysis. Will continue to attempt.
--- NOTE | 2022-09-06 17:16 | PC.NURSE ---
returned to room dialysis completed-
[2022-09-06 17:45] LABS: Anion Gap 10 mmol/L (8-16); Blood Urea Nitrogen 7 mg/dL (9-20); Calcium 8.5 mg/dL (8.4-10.2); Carbon Dioxide 28 mmol/L (22-30); Chloride 103 mmol/L (98-107); Estimated CRCL calculation 33 ml/min; Estimated Glomerular Filt Rate 45; Glucose 79 mg/dL (65-110); Potassium 3.4 mmol/L (3.4-5.0); Sodium 141 mmol/L (137-145)
[2022-09-07] VITALS (26 sets, daily range): BP systolic 80–120; BP diastolic 42–62; PULSE 80–114; RESP 16–24; TEMP 36–36.8; O2SAT 91–100
--- NOTE | 2022-09-07 00:06 | PCRCNOTE ---
2000 nebulizer treatment not given. Window of time for administration has passed. See next scheduled administration.
[2022-09-07] MEDS: ALBUTEROL SULFATE NEB 2.5 MG/3 ML INH INHALATION ×5 (00:30→20:42)
[2022-09-07] MEDS: IPRATROPIUM BR 0.02% INH SOLN 0.5 MG/2.5 ML VIAL INHALATION ×4 (00:30→20:42)
[2022-09-07] MEDS: LEVOTHYROXINE SODIUM 25 MCG TABLET PO (05:32)
--- NOTE | 2022-09-07 08:08 | PM.IMPN ---
Progress Note: A&P Assessment and Plan (1) Pneumonia: Code(s): J18.9 - Pneumonia, unspecified organism Status: Acute (2) Hypotension: Code(s): I95.9 - Hypotension, unspecified Status: Acute (3) Lab test positive for detection of COVID-19 virus: Code(s): U07.1 - COVID-19 Status: Acute (4) Atrial fibrillation: Code(s): I48.91 - Unspecified atrial fibrillation Status: Acute (5) Acute metabolic encephalopathy: Code(s): G93.41 - Metabolic encephalopathy Status: Acute (6) ESRD on dialysis: Code(s): N18.6 - End stage renal disease; Z99.2 - Dependence on renal dialysis Status: Acute (7) Anemia: Code(s): D64.9 - Anemia, unspecified Status: Chronic Plan IV fluid resuscitation BP 115/60 HR 90 M blood pressure monitor lactic acid levels Repeat CBC CMP Two sets of Blood cultures urine cultures pending results CXR Pneumonia left pleural effusion repeat chest x-ray tomorrow Monitor albumin' Monitoring of mental status. Steroids suggested if septic shock on his positive fluid resuscitation and vasopressors. IV antibiotics cefepime and vancomycin continue CRF currently on dialysis Potassium of 3.4 Creatinine 1.5 Lactic acid 2.2 albumin 2.8 And gentle hydration. Avoid nephrotoxic drugs. Monitor antihypertensive drugs Avoid NSAIDs. Routine CMP monitor GFR. Monitor electrolytes potassium levels. Dose antibiotics depending on creatinine clearance fire management specialist recommended ANEMIA Secondary to chronic renal failure. Monitor on arm also a doctor or Iron supplement if needed Check for chronic renal failure History of atrial fibrillation Not on anticoagulation secondary to ileus muscle hematoma. Monitor heart rate and blood pressure History history of hypothyroidism will resume Synthroid Subjective Date/time seen: 09/07/22 08:08 Interval history: Patient appears comfortable no chest pain no shortness of breaths Exam Narrative: GENERAL: Well appearing, well-nourished, non-toxic, in no acute distress. HEAD: Normocephalic, atraumatic. NECK: Supple. No adenopathy, no masses. RESPIRATORY: Airway patent, respirations nonlabored. Clear to auscultation bilaterally, no rales, rhonchi, wheezing. CARDIOVASCULAR: Regular rate and rhythm without murmurs, rubs, or gallops. Peripheral pulses 2+ and equal bilaterally. ABDOMINAL: Soft, nontender, nondistended, no hepatosplenomegaly. Normoactive BS. MUSCULOSKELETAL: no Epigastric and no hypochondrial tenderness SKIN: Warm, dry, normal color. No rashes. NEURO: A&O X3. Moves all extremities PSYCHIATRIC: Appropriate mood and affect. Normal interaction. Objective Data Vital Signs Vital Signs: Vital Signs - 24 hr 09/06/22 09:02 09/06/22 09:02 09/06/22 08:35 Temperature Pulse Rate 80 80 90 Respiratory Rate 18 Blood Pressure Pulse Oximetry 94 Oxygen Delivery Nasal Cannula Oxygen Flow Rate 1 09/06/22 08:35 09/06/22 12:00 09/06/22 13:17 Temperature 36.0 C L Pulse Rate 98 85 Respiratory Rate 20 Blood Pressure 101/58 L 109/51 L Pulse Oximetry 94 91 Oxygen Delivery Nasal Cannula Oxygen Flow Rate 2 09/06/22 13:00 09/06/22 13:40 09/06/22 13:00 Temperature 36.3 C L Pulse Rate 83 66 Respiratory Rate 16 Blood Pressure 98/56 L 105/58 L Pulse Oximetry Oxygen Delivery Oxygen Flow Rate 2 09/06/22 14:07 09/06/22 14:20 09/06/22 14:40 Temperature Pulse Rate 92 82 77 Respiratory Rate Blood Pressure 95/64 L 108/67 101/63 Pulse Oximetry Oxygen Delivery Oxygen Flow Rate 09/06/22 15:00 09/06/22 15:20 09/06/22 15:40 Temperature Pulse Rate 76 83 74 Respiratory Rate Blood Pressure 99/25 L 105/61 103/54 L Pulse Oximetry Oxygen Delivery Oxygen Flow Rate 09/06/22 09:26 09/06/22 12:00 09/06/22 12:00 Temperature Pulse Rate 80 101 H Respiratory Rate 18 Blood Pressure Pulse Oximetry 95 O
[2022-09-07] MEDS: BUDESONIDE RESPULE NEB 0.5 MG/2 ML AMP INHALATION (08:35)
[2022-09-07] MEDS: MECLIZINE HCL 6.25 MG TABLET PO ×3 (08:49→16:41)
[2022-09-07] MEDS: MIDODRINE HCL 10 MG TABLET PO ×3 (08:50→16:41)
[2022-09-07] MEDS: ACIDOPHILUS/BULGARICUS CHEWABLE TABLET 1 TABLET PO (08:50)
[2022-09-07] MEDS: CHOLECALCIFEROL 400 UNITS TABLET (VIT D) PO (08:51)
--- NOTE | 2022-09-07 11:00 | PM.PNNEP ---
Progress Note: A&P Assessment and Plan (1) End stage renal disease: Code(s): N18.6 - End stage renal disease Status: Chronic Assessment and Plan: HD yesterday continue Friday, Friday, Friday dialysis schedule follow electrolytes, volume status, and clearance (2) Pneumonia: Code(s): J18.9 - Pneumonia, unspecified organism Status: Acute Assessment and Plan: as suggested by admission imaging follow culture data on antibiotic therapy breathing treatments PRN postCOVID-19 infection (3) BPV (benign positional vertigo): Code(s): H81.10 - Benign paroxysmal vertigo, unspecified ear Status: Acute Assessment and Plan: exacerbated by hypotension(?) started on meclizine follow symptoms (4) Hypotension: Code(s): I95.9 - Hypotension, unspecified Status: Acute Assessment and Plan: chronic issues at baseline resume midodrine therapy follow BP readings (5) Chronic anemia: Code(s): D64.9 - Anemia, unspecified Status: Acute Assessment and Plan: due to ESRD Epogen with HD follow H/H Will continue to follow. Subjective Date/time seen: 09/07/22 11:00 Tolerated dialysis treatment yesterday without any issues or problems; no other acute issues or complaints voiced at this time; no apparent distress noted. Exam Narrative: General: WD/WN elderly male in NAD Heart: IRRR; normal S1 and S2; no rub Lungs: decreased at bases Abdomen: soft, nontender, nondistended, positive bowel sounds Extremities: no cyanosis or clubbing; no edema Skin: warm and dry Objective Data Vital Signs Vital Signs: Vital Signs Temp Pulse Resp BP Pulse Ox O2 Del Method O2 Flow Rate 09/07/22 10:00 106 H 09/07/22 08:40 108 H 20 94 Nasal Cannula 2 09/07/22 08:40 108 H 09/07/22 12:08 96.8 F L 89 20 98/61 L 94 09/07/22 09:35 80/42 L 09/07/22 09:35 93/56 L 09/07/22 09:30 Nasal Cannula 1 09/07/22 09:10 Nasal Cannula 1 09/07/22 09:01 99 18 09/07/22 08:36 104 H 18 09/07/22 08:36 91 Nasal Cannula 1 09/07/22 08:07 96.9 F L 105 H 22 H 115/62 94 09/07/22 05:18 107 H 09/07/22 05:18 114 H 18 09/07/22 05:10 108 H 18 09/07/22 03:37 112 H 20 97 Nasal Cannula 1 09/07/22 04:00 98.2 F 112 H 20 96/62 L 97 09/07/22 04:00 103 H 09/07/22 02:00 109 H 09/07/22 00:44 113 H 16 09/07/22 00:33 110 H 20 09/07/22 00:00 103 H 09/06/22 23:13 117 H 20 97 Nasal Cannula 1 09/06/22 23:23 97.9 F 117 H 20 97/56 L 97 09/06/22 22:00 98 09/06/22 20:00 108 H 09/06/22 20:00 107 H 20 98 Nasal Cannula 1 09/06/22 20:00 100/68 09/06/22 20:00 98.1 F 107 H 20 105/70 98 09/06/22 18:00 92 09/06/22 17:34 97.4 F L 104 H 18 92/66 L 91 09/06/22 17:17 95 Nasal Cannula 1 09/06/22 17:17 103 H 09/06/22 17:02 97.2 F L 74 16 99/64 L 09/06/22 16:47 72 103/58 L 09/06/22 16:20 85 100/49 L Intake/Output Intake/Output: Intake & Output 09/04/22 09/05/22 09/06/22 09/07/22 23:59 23:59 23:59 23:59 Intake Total 150 1420 410 Output Total 2400 Balance 150 -980 410 Meds/Results Medications: Active Medications Generic Name Dose Route Start Last Admin Trade Name Freq PRN Reason Stop Dose Admin Albuterol 2.5 mg 09/07/22 14:00 09/07/22 13:52 Albuterol Sulfate Neb 2.5 Mg/3 Ml Inh INHALATION 2.5 mg Q6HRT YING Administration Bisacodyl 10 mg 09/06/22 01:15 Bisacodyl 10 Mg Suppository RECTAL DAILY PRN Constipation Budesonide 0.5 mg 09/06/22 08:00 09/07/22 08:35 Budesonide Respule Neb 0.5 Mg/2 Ml Amp INHALATION 09/10/22 08:01 0.5 mg DAILYRT YING Administration Cefepime HCl 1 gm in 50 mls @ 100 mls/hr 09/06/22 08:00 09/07/22 09:30 Maxipime
[2022-09-08] VITALS (25 sets, daily range): BP systolic 80–125; BP diastolic 56–107; PULSE 73–97; RESP 14–20; TEMP 35.5–36.6; O2SAT 94–100
[2022-09-08] MEDS: IPRATROPIUM BR 0.02% INH SOLN 0.5 MG/2.5 ML VIAL INHALATION ×4 (02:13→19:37)
[2022-09-08] MEDS: ALBUTEROL SULFATE NEB 2.5 MG/3 ML INH INHALATION ×4 (02:13→19:37)
[2022-09-08 05:48] LABS: Hemoglobin 9.1 g/dL (14.0-18.0); Mean Corpuscular HGB Conc 30.3 g/dl (32-36); Mean Corpuscular Hemoglobin 35.5 pg (26-34); Mean Corpuscular Volume 117.2 fl (80-100); Mean Platelet Volume 10.6 fl (7.4-10.4); Platelet Count Result 158 k/mm3 (150-375); Red Blood Count 2.56 M/mm3 (4.6-6.20); Red Cell Distribution Width 22.1 % (11.5-14.5)
[2022-09-08 06:02] LABS: Alanine Aminotransferase 26 U/L (6-50); Albumin Level 3.1 g/dL (3.5-5.1); Alkaline Phosphatase 67 U/L (38-126); Anion Gap 10 mmol/L (8-16); Aspartate Amino Transferase 57 U/L (17-59); Bilirubin,Total 2.2 mg/dL (0.2-1.3); Blood Urea Nitrogen 15 mg/dL (9-20); Calcium 8.6 mg/dL (8.4-10.2); Carbon Dioxide 24 mmol/L (22-30); Chloride 101 mmol/L (98-107); Estimated CRCL calculation 18 ml/min; Estimated Glomerular Filt Rate 22; Glucose 109 mg/dL (65-110); Potassium 3.2 mmol/L (3.4-5.0); Sodium 135 mmol/L (137-145)
[2022-09-08] MEDS: LEVOTHYROXINE SODIUM 25 MCG TABLET PO (06:27)
[2022-09-08] MEDS: MECLIZINE HCL 6.25 MG TABLET PO ×3 (08:34→17:14)
[2022-09-08] MEDS: ACIDOPHILUS/BULGARICUS CHEWABLE TABLET 1 TABLET PO (08:34)
[2022-09-08] MEDS: CHOLECALCIFEROL 400 UNITS TABLET (VIT D) PO (08:35)
[2022-09-08] MEDS: MIDODRINE HCL 10 MG TABLET PO ×3 (08:35→17:14)
[2022-09-08] MEDS: BUDESONIDE RESPULE NEB 0.5 MG/2 ML AMP INHALATION ×2 (08:36→19:38)
--- NOTE | 2022-09-08 09:27 | PM.IMPN ---
Progress Note: A&P Assessment and Plan (1) Pneumonia: Code(s): J18.9 - Pneumonia, unspecified organism Status: Acute (2) Hypotension: Code(s): I95.9 - Hypotension, unspecified Status: Acute (3) Lab test positive for detection of COVID-19 virus: Code(s): U07.1 - COVID-19 Status: Acute (4) Atrial fibrillation: Code(s): I48.91 - Unspecified atrial fibrillation Status: Acute (5) Acute metabolic encephalopathy: Code(s): G93.41 - Metabolic encephalopathy Status: Acute (6) ESRD on dialysis: Code(s): N18.6 - End stage renal disease; Z99.2 - Dependence on renal dialysis Status: Acute (7) Anemia: Code(s): D64.9 - Anemia, unspecified Status: Chronic Plan IV fluid resuscitation BP 115/60 HR 90 M blood pressure monitor lactic acid levels Repeat CBC CMP Two sets of Blood cultures urine cultures pending results CXR Pneumonia left pleural effusion repeat chest x-ray tomorrow Monitor albumin' Monitoring of mental status. Steroids suggested if septic shock on his positive fluid resuscitation and vasopressors. IV antibiotics cefepime and vancomycin continue CRF currently on dialysis Potassium of 3.2 Creatinine 2.8 Lactic acid 2.2 albumin 3.1 And gentle hydration. Avoid nephrotoxic drugs. Monitor antihypertensive drugs Avoid NSAIDs. Routine CMP monitor GFR. Monitor electrolytes potassium levels. Dose antibiotics depending on creatinine clearance residential life director recommended ANEMIA Secondary to chronic renal failure. H&H 9.09/16 Monitor on arm also a doctor or Iron supplement if needed History of atrial fibrillation Not on anticoagulation secondary to ileus muscle hematoma. Monitor heart rate and blood pressure History history of hypothyroidism will resume Synthroid TSH is 11 recheck in 2 weeks maybe increased levothyroxine Subjective Date/time seen: 09/08/22 09:27 Interval history: Up on the chair having his breakfast no new complaints cough much improved Exam Narrative: GENERAL: Well appearing, well-nourished, non-toxic, in no acute distress. HEAD: Normocephalic, atraumatic. NECK: Supple. No adenopathy, no masses. RESPIRATORY: Airway patent, respirations nonlabored. Clear to auscultation bilaterally, no rales, rhonchi, wheezing. CARDIOVASCULAR: Regular rate and rhythm without murmurs, rubs, or gallops. Peripheral pulses 2+ and equal bilaterally. ABDOMINAL: Soft, nontender, nondistended, no hepatosplenomegaly. Normoactive BS. MUSCULOSKELETAL: no Epigastric and no hypochondrial tenderness SKIN: Warm, dry, normal color. No rashes. NEURO: A&O X3. Moves all extremities PSYCHIATRIC: Appropriate mood and affect. Normal interaction. Objective Data Vital Signs Vital Signs: Vital Signs - 24 hr 09/07/22 09:30 09/07/22 09:35 09/07/22 09:35 Temperature Pulse Rate Respiratory Rate Blood Pressure 93/56 L 80/42 L Pulse Oximetry Oxygen Delivery Nasal Cannula Oxygen Flow Rate 1 09/07/22 12:08 09/07/22 10:00 09/07/22 12:19 Temperature 36.0 C L Pulse Rate 89 106 H 100 Respiratory Rate 20 Blood Pressure 98/61 L Pulse Oximetry 94 Oxygen Delivery Oxygen Flow Rate 09/07/22 12:19 09/07/22 13:52 09/07/22 14:08 Temperature Pulse Rate 100 92 88 Respiratory Rate 20 18 18 Blood Pressure Pulse Oximetry 94 Oxygen Delivery Nasal Cannula Oxygen Flow Rate 1 09/07/22 14:00 09/07/22 16:28 09/07/22 16:00 Temperature 36.0 C L Pulse Rate 88 95 80 Respiratory Rate 20 Blood Pressure 120/61 Pulse Oximetry 100 Oxygen Delivery Oxygen Flow Rate 09/07/22 16:00 09/07/22 18:00 09/07/22 20:00 Temperature 36.4 C Pulse Rate 95 81 83 Respiratory Rate 20 20 Blood Pressure 88/60 L Pulse Oximetry 97 100 Oxygen Delivery Nasal Cannula Oxygen Flow Rate 1 09/07/22 20:00 09/07/22 20:40 09/07/22 20:55 Temperature Pulse Rate 82 Respiratory Rate 24
--- NOTE | 2022-09-08 10:31 | PM.PNNEP ---
Progress Note: A&P Assessment and Plan (1) End stage renal disease: Code(s): N18.6 - End stage renal disease Status: Chronic Assessment and Plan: HD tomorrow and continue Friday, Friday, Friday dialysis schedule follow electrolytes, volume status, and clearance (2) Pneumonia: Code(s): J18.9 - Pneumonia, unspecified organism Status: Acute Assessment and Plan: as suggested by admission imaging follow culture data on antibiotic therapy breathing treatments PRN post COVID-19 infection (3) BPV (benign positional vertigo): Code(s): H81.10 - Benign paroxysmal vertigo, unspecified ear Status: Acute Assessment and Plan: exacerbated by hypotension(?) started on meclizine follow symptoms (4) Hypotension: Code(s): I95.9 - Hypotension, unspecified Status: Acute Assessment and Plan: chronic issues at baseline resume midodrine therapy follow BP readings (5) Chronic anemia: Code(s): D64.9 - Anemia, unspecified Status: Acute Assessment and Plan: due to ESRD Epogen with HD follow H/H Will continue to follow. Subjective Date/time seen: 09/08/22 10:31 No new issues or problems to report at this time; feels reasonably welll and in no acute distress; eating and drinking okay; reports cough seems to have improved some since admission; no further episodes of dizziness or lightheadedness on my visit. Exam Narrative: General: WD/WN elderly male in NAD Heart: IRRR; normal S1 and S2; no rub Lungs: decreased at bases Abdomen: soft, nontender, nondistended, positive bowel sounds Extremities: no cyanosis or clubbing; no edema Skin: warm and dry Objective Data Vital Signs Vital Signs: Vital Signs Temp Pulse Resp BP Pulse Ox O2 Del Method O2 Flow Rate 09/08/22 10:00 91 09/08/22 08:00 87 09/08/22 08:00 87 16 98 Room Air 09/08/22 08:48 80 20 09/08/22 09:00 125/107 H 09/08/22 08:00 96.7 F L 89 16 100/80 100 09/08/22 08:00 100/80 09/08/22 08:38 84 20 09/08/22 05:51 83 09/08/22 04:00 84 09/08/22 03:54 84 20 97 Room Air 09/08/22 02:00 89 09/08/22 03:18 97.9 F 84 20 90/68 L 97 09/08/22 02:16 84 18 09/08/22 02:08 86 18 09/08/22 00:00 87 09/08/22 00:00 93 20 95 Room Air 09/07/22 22:00 88 09/07/22 20:00 83 20 100 Nasal Cannula 1 09/07/22 20:00 87 09/08/22 00:00 97.2 F L 93 20 86/65 L 95 09/07/22 20:55 87 24 H 09/07/22 20:55 94 Nasal Cannula 1 09/07/22 20:40 82 24 H 09/07/22 20:00 84/56 L 09/07/22 20:00 97.6 F 83 20 88/60 L 100 09/07/22 18:00 81 09/07/22 16:00 95 20 97 Nasal Cannula 1 09/07/22 16:00 80 09/07/22 16:28 96.8 F L 95 20 120/61 100 Intake/Output Intake/Output: Intake & Output 09/05/22 09/06/22 09/07/22 09/08/22 23:59 23:59 23:59 23:59 Intake Total 150 1420 1150 530 Output Total 2400 0 0 Balance 150 -980 1150 530 Meds/Results Medications: Active Medications Generic Name Dose Route Start Last Admin Trade Name Freq PRN Reason Stop Dose Admin Albuterol 2.5 mg 09/07/22 14:00 09/08/22 13:46 Albuterol Sulfate Neb 2.5 Mg/3 Ml Inh INHALATION 2.5 mg Q6HRT YING Administration Bisacodyl 10 mg 09/06/22 01:15 Bisacodyl 10 Mg Suppository RECTAL DAILY PRN Constipation Budesonide 0.5 mg 09/06/22 08:00 09/08/22 08:36 Budesonide Respule Neb 0.5 Mg/2 Ml Amp INHALATION 09/10/22 08:01 0.5 mg DAILYRT YING Administration Cefepime HCl 1 gm in 50 mls @ 100 mls/hr 09/06/22 08:00 09/08/22 09:06 Maxipime 1 Gm/D5w 50 Ml IVPB Infused Q12H YING Infusion Albumin Human 50 mls @ 999 mls/hr 09/06/22 07:32 Albutein IVPB 10/06/22 07:31 Q10M PRN HYPOTENSION Vancomycin HCl 1,250 mg in 250 mls @ 2
[2022-09-09] VITALS (33 sets, daily range): BP systolic 75–123; BP diastolic 37–94; PULSE 71–110; RESP 18–20; TEMP 36–36.7; O2SAT 96–100
[2022-09-09] MEDS: ALBUTEROL SULFATE NEB 2.5 MG/3 ML INH INHALATION ×2 (02:50→08:57)
[2022-09-09] MEDS: IPRATROPIUM BR 0.02% INH SOLN 0.5 MG/2.5 ML VIAL INHALATION ×2 (02:51→08:57)
[2022-09-09] MEDS: LEVOTHYROXINE SODIUM 25 MCG TABLET PO (06:13)
[2022-09-09 09:14] LABS: Anion Gap 9 mmol/L (8-16); Blood Urea Nitrogen 21 mg/dL (9-20); Calcium 8.8 mg/dL (8.4-10.2); Carbon Dioxide 24 mmol/L (22-30); Chloride 100 mmol/L (98-107); Estimated CRCL calculation 13 ml/min; Estimated Glomerular Filt Rate 15; Glucose 123 mg/dL (65-110); Potassium 3.7 mmol/L (3.4-5.0); Sodium 133 mmol/L (137-145)
[2022-09-09] MEDS: MECLIZINE HCL 6.25 MG TABLET PO ×2 (09:24→12:16)
[2022-09-09] MEDS: ACIDOPHILUS/BULGARICUS CHEWABLE TABLET 1 TABLET PO (09:24)
[2022-09-09] MEDS: CHOLECALCIFEROL 400 UNITS TABLET (VIT D) PO (09:26)
[2022-09-09] MEDS: MIDODRINE HCL 10 MG TABLET PO ×3 (09:26→21:30)
[2022-09-09] MEDS: POTASSIUM CHLORIDE 20 MEQ TABLET PO (09:28)
[2022-09-09 09:37] LABS: Vancomycin Trough 27.4 ug/mL (10.0-20.0)
--- NOTE | 2022-09-09 14:59 | PCPTNOTE ---
Attempted to see patient for PT, however patient was having to go to dialysis soon.
--- NOTE | 2022-09-09 15:41 | PM.PNNEP ---
Progress Note: A&P Assessment and Plan (1) End stage renal disease: Code(s): N18.6 - End stage renal disease Status: Chronic Assessment and Plan: HD today and continue Friday, Friday, Friday dialysis schedule follow electrolytes, volume status, and clearance (2) Pneumonia: Code(s): J18.9 - Pneumonia, unspecified organism Status: Acute Assessment and Plan: as suggested by admission imaging follow culture data on antibiotic therapy breathing treatments PRN post COVID-19 infection (3) BPV (benign positional vertigo): Code(s): H81.10 - Benign paroxysmal vertigo, unspecified ear Status: Acute Assessment and Plan: exacerbated by hypotension(?) started on meclizine follow symptoms (4) Hypotension: Code(s): I95.9 - Hypotension, unspecified Status: Acute Assessment and Plan: chronic issue at baseline on midodrine therapy follow BP readings (5) Chronic anemia: Code(s): D64.9 - Anemia, unspecified Status: Acute Assessment and Plan: due to ESRD Epogen with HD follow H/H Will continue to follow. Subjective Date/time seen: 09/09/22 15:41 Tolerating dialysis treatment at the time of my visit (seen on HD at 3:30PM); no apparent distress voiced at this time; no other issues/events overnight or earlier this AM. Exam Narrative: General: WD/WN elderly male in NAD Heart: IRRR; normal S1 and S2; no rub Lungs: decreased at bases Abdomen: soft, nontender, nondistended, positive bowel sounds Extremities: no cyanosis or clubbing; no edema Skin: warm and intact Objective Data Vital Signs Vital Signs: Vital Signs Temp Pulse Resp BP Pulse Ox O2 Del Method 09/09/22 12:00 91 09/09/22 10:00 90 09/09/22 08:00 101 H 09/09/22 12:00 97.2 F L 103 H 20 90/69 L 96 09/09/22 08:00 86 20 98 Room Air 09/09/22 09:31 91/61 L 09/09/22 08:00 87/49 L 09/09/22 08:00 97.2 F L 92 20 87/49 L 100 09/09/22 08:58 106 H 18 09/09/22 08:58 106 H 98 Room Air 09/09/22 05:45 105 H 09/09/22 04:00 95 09/09/22 04:00 95 20 97 Room Air 09/09/22 03:49 97.8 F 103 H 20 93/68 L 97 09/09/22 03:02 88 18 09/09/22 02:51 95 18 09/09/22 02:00 88 09/09/22 00:00 90 09/08/22 23:44 85 20 98 Room Air 09/08/22 23:04 98 F 85 20 90/56 L 98 09/08/22 22:00 95 09/08/22 20:00 80 09/08/22 19:37 81 16 09/08/22 20:00 86 20 98 Room Air 09/08/22 20:00 85/64 L 09/08/22 20:00 97.6 F 86 20 89/58 L 98 09/08/22 18:00 97 Intake/Output Intake/Output: Intake & Output 09/06/22 09/07/22 09/08/22 09/09/22 23:59 23:59 23:59 23:59 Intake Total 1420 1150 1450 630 Output Total 2400 0 0 0 Balance -980 1150 1450 630 Meds/Results Medications: Active Medications Generic Name Dose Route Start Last Admin Trade Name Freq PRN Reason Stop Dose Admin Albuterol 2.5 mg 09/07/22 14:00 09/09/22 15:01 Albuterol Sulfate Neb 2.5 Mg/3 Ml Inh INHALATION Not Given Q6HRT [facility] Bisacodyl 10 mg 09/06/22 01:15 Bisacodyl 10 Mg Suppository RECTAL DAILY PRN Constipation Budesonide 0.5 mg 09/06/22 08:00 09/08/22 19:38 Budesonide Respule Neb 0.5 Mg/2 Ml Amp INHALATION 09/10/22 08:01 0.5 mg DAILYRT YING Administration Epoetin Chance-epbx 10,000 units 09/09/22 21:26 Epoetin Chance-Epbx 10,000 Units/Ml Vial IV PUSH 09/09/22 21:27 ONCE ONE Albumin Human 50 mls @ 999 mls/hr 09/06/22 07:32 Albutein IVPB 10/06/22 07:31 Q10M PRN HYPOTENSION Vancomycin HCl 1,250 mg in 250 mls @ 200 mls/hr 09/09/22 09:32 Vancomycin 1,250 Mg/D5w 250 Ml IVPB PRN PRN DIALYSIS DOSING PROTOCOL Cefepime HCl 1 gm/ Dextrose 100 mls @ 200 mls/hr 09/09/22 21:00 IVPB Q24H YING Ipratropium [place] 0.5 mg 09/06/22 02:00 0
--- NOTE | 2022-09-09 16:55 | PM.IMPN ---
Progress Note: A&P Assessment and Plan (1) Pneumonia: Code(s): J18.9 - Pneumonia, unspecified organism Status: Acute (2) Hypotension: Code(s): I95.9 - Hypotension, unspecified Status: Acute (3) Lab test positive for detection of COVID-19 virus: Code(s): U07.1 - COVID-19 Status: Acute (4) Atrial fibrillation: Code(s): I48.91 - Unspecified atrial fibrillation Status: Acute (5) Acute metabolic encephalopathy: Code(s): G93.41 - Metabolic encephalopathy Status: Acute (6) ESRD on dialysis: Code(s): N18.6 - End stage renal disease; Z99.2 - Dependence on renal dialysis Status: Acute (7) Anemia: Code(s): D64.9 - Anemia, unspecified Status: Chronic [place] [id number] CXR Pneumonia left pleural effusion repeat cxr shows - 1. Stable moderate-sized right and small left pleural effusions. 2. Stable airspace opacities at right lung base, consistent with atelectasis versus pneumonia. 3. Cardiomegaly. continue IV antibiotics cefepime and vancomycin day 2 CRF currently on dialysis continue to monitor bmp hypotensive pt is a dialysis pt ANEMIA Secondary to chronic renal failure. H&H 9.09/16 Monitor on arm also a doctor or epogen if needed History of atrial fibrillation Not on anticoagulation secondary to ileus muscle hematoma. Monitor heart rate and blood pressure History history of hypothyroidism will resume Synthroid TSH is 11 repeat tsh in 2 weeks maybe increased levothyroxine Subjective Date/time seen: 09/09/22 16:55 77-year-old male patient who has a history of orthostatic hypotension on midodrine.? He also has chronic kidney disease on dialysis Friday and Friday.? He has a history of atrial fibrillation but Eliquis is on hold due to a recent iliopsoas hematoma.? The patient stated that he has been dizzy over the last 4 days.? He feels like the room is spinning.? When he turns his head or sits up he becomes very dizzy and has stated laying down.? The patient covered his eyes and was lying very still and that the only way to stop the dizziness.? He denied any blurred vision headaches nausea vomiting.? The patient had a chest x-ray that shows the followingWorsened moderate-sized right and small left pleural effusions. 2. Worsened airspace opacities in the mid and lower lung zones, right worse than left, consistent with atelectasis versus pneumonia. 3. Cardiomegaly. Nephrology has been consulted.?? Pt admitted for Pneumonia, Esrd, Post Covid. Pt is feeling better, awaiting placement. medically stable Review of Systems Review of Systems: No new complaints Pt feels better Exam Narrative: GENERAL: Well appearing, well-nourished NECK: Supple. No adenopathy, no masses. RESPIRATORY: Airway patent, respirations nonlabored. Clear to auscultation bilaterally, no rales, rhonchi, wheezing. CARDIOVASCULAR: Regular rate and rhythm without murmurs, rubs, or gallops. Peripheral pulses 2+ and equal bilaterally. ABDOMINAL: Soft, nontender, nondistended, no hepatosplenomegaly. Normoactive BS. MUSCULOSKELETAL: no Epigastric and no hypochondrial tenderness SKIN: Warm, dry, normal color. No rashes. NEURO: A&O X3. Moves all extremities PSYCHIATRIC: Appropriate mood and affect. Normal interaction. Objective Data Vital Signs Vital Signs: Vital Signs - 24 hr 09/08/22 18:00 09/08/22 20:00 09/08/22 20:00 Temperature 36.4 C Pulse Rate 97 86 Respiratory Rate 20 Blood Pressure 89/58 L 85/64 L Pulse Oximetry 98 Oxygen Delivery 09/08/22 20:00 09/08/22 19:37 09/08/22 20:00 Temperature Pulse Rate 86 81 80 Respiratory Rate 20 16 Blood Pressure Pulse Oximetry 98 Oxygen Delivery Room Air 09/08/22 22:00 09/08/22 23:04 09/08/22 23:44 Temperature 36.6 C Pulse Rate 95 85 85 Respiratory Rate 20 20 Blood Pressure 90/56 L Pulse Oximetry 98 98 Oxygen Delivery Room Air
[2022-09-09] MEDS: CEFEPIME 1 GM in DEXTROSE 5% 100 ML IVPB (20:33)
[2022-09-09 21:20] LABS: Glucose Point of Care 112 mg/dl (65-105)
--- NOTE | 2022-09-09 22:07 | PC.NURSE ---
At about 2119, pt's , Zhane, called saying the pt called her and was confused. This RN went in to assess the pt and obtain VS. BP 75/58 and BG 112. Pt oriented but stated he thought he was going to . Obtained orders for his evening midodrine since the pt did not receive it during dialysis. Now, the pt's VSS and resting in bed comfortably. Will continue to monitor.
[2022-09-10] VITALS (18 sets, daily range): BP systolic 79–105; BP diastolic 38–87; PULSE 59–121; RESP 15–20; TEMP 36.4–36.9; O2SAT 93–100
[2022-09-10] MEDS: ALBUTEROL SULFATE NEB 2.5 MG/3 ML INH INHALATION ×4 (03:13→20:26)
[2022-09-10] MEDS: IPRATROPIUM BR 0.02% INH SOLN 0.5 MG/2.5 ML VIAL INHALATION ×4 (03:13→20:26)
[2022-09-10 05:11] LABS: Estimated CRCL calculation 22 ml/min; Estimated Glomerular Filt Rate 28
[2022-09-10] MEDS: LEVOTHYROXINE SODIUM 25 MCG TABLET PO (06:28)
[2022-09-10] MEDS: ACIDOPHILUS/BULGARICUS CHEWABLE TABLET 1 TABLET PO (08:33)
[2022-09-10] MEDS: MECLIZINE HCL 6.25 MG TABLET PO ×3 (08:33→17:27)
[2022-09-10] MEDS: CHOLECALCIFEROL 400 UNITS TABLET (VIT D) PO (08:34)
[2022-09-10] MEDS: MIDODRINE HCL 10 MG TABLET PO ×3 (08:34→17:27)
[2022-09-10 09:03] LABS: Blood Urea Nitrogen 10 mg/dL (9-20); Calcium 8.8 mg/dL (8.4-10.2); Chloride 104 mmol/L (98-107); Estimated CRCL calculation 18 ml/min; Estimated Glomerular Filt Rate 22; Glucose 104 mg/dL (65-110); Potassium 5.1 mmol/L (3.4-5.0); Sodium 141 mmol/L (137-145)
[2022-09-10 09:38] LABS: Anion Gap 11 mmol/L (8-16); Carbon Dioxide 26 mmol/L (22-30)
--- NOTE | 2022-09-10 10:00 | PM.PNNEP ---
Progress Note: A&P Assessment and Plan (1) End stage renal disease: Code(s): N18.6 - End stage renal disease Status: Chronic Assessment and Plan: HD tomorrow and continue Friday, Friday, Friday dialysis schedule follow electrolytes, volume status, and clearance (2) Pneumonia: Code(s): J18.9 - Pneumonia, unspecified organism Status: Acute Assessment and Plan: as suggested by admission imaging follow culture data on antibiotic therapy breathing treatments PRN post COVID-19 infection (3) BPV (benign positional vertigo): Code(s): H81.10 - Benign paroxysmal vertigo, unspecified ear Status: Acute Assessment and Plan: exacerbated by hypotension(?) started on meclizine follow symptoms (4) Hypotension: Code(s): I95.9 - Hypotension, unspecified Status: Acute Assessment and Plan: chronic issue at baseline on midodrine therapy follow BP readings (5) Chronic anemia: Code(s): D64.9 - Anemia, unspecified Status: Acute Assessment and Plan: due to ESRD Epogen with HD follow H/H Will continue to follow. Subjective Date/time seen: 09/10/22 10:00 Tolerated hemodialysis treatment yesterday without any issues or problems although fluid removal was challenging due to his chronic hypotension; no apparent distress noted at this time; no events overnight or earlier this AM. Exam Narrative: General: WD/WN elderly male in NAD Heart: IRRR; normal S1 and S2; no rub Lungs: decreased at bases Abdomen: soft, nontender, nondistended, positive bowel sounds Extremities: no cyanosis or clubbing; no edema Skin: no rash Objective Data Vital Signs Vital Signs: Vital Signs Temp Pulse Resp BP Pulse Ox O2 Del Method 09/10/22 08:25 79/59 L 09/10/22 08:00 98 F 59 L 15 84/59 L 100 09/10/22 08:00 98 F 91 15 84/59 L 100 09/10/22 04:00 92 09/10/22 03:48 98.5 F 99 18 89/64 L 100 09/10/22 03:14 97 18 09/10/22 00:00 105/87 09/10/22 00:00 121 H 09/09/22 21:58 123/94 H 09/09/22 20:00 Room Air 09/09/22 21:22 75/58 L 09/09/22 20:00 110 H 09/09/22 20:00 92/62 L 09/09/22 20:55 97.1 F L 109 H 20 90/69 L 98 09/09/22 16:00 90 09/09/22 18:57 98.0 F 100 18 101/39 L 09/09/22 18:40 88 90/40 L 09/09/22 18:20 72 90/57 L 09/09/22 18:00 99 90/60 L 09/09/22 17:40 78 94/54 L 09/09/22 17:20 93 84/37 L 09/09/22 17:00 100 84/56 L 09/09/22 16:40 85 87/56 L 09/09/22 16:20 82 96/52 L 09/09/22 16:00 81 94/47 L 09/09/22 15:42 86 90/39 L 09/09/22 15:40 72 80/39 L 09/09/22 15:20 71 94/47 L 09/09/22 15:16 85 92/60 L 09/09/22 15:09 97.7 F 100 18 94/51 L 09/09/22 12:00 91 09/09/22 12:00 97.2 F L 103 H 20 90/69 L 96 Intake/Output Intake/Output: Intake & Output 09/07/22 09/08/22 09/09/22 09/10/22 23:59 23:59 23:59 23:59 Intake Total 1150 1450 730 240 Output Total 0 0 0 0 Balance 1150 1450 730 240 Meds/Results Medications: Active Medications Generic Name Dose Route Start Last Admin Trade Name Freq PRN Reason Stop Dose Admin Albuterol 2.5 mg 09/07/22 14:00 09/10/22 03:13 Albuterol Sulfate Neb 2.5 Mg/3 Ml Inh INHALATION 2.5 mg Q6HRT YING Administration Bisacodyl 10 mg 09/06/22 01:15 Bisacodyl 10 Mg Suppository RECTAL DAILY PRN Constipation Albumin Human 50 mls @ 999 mls/hr 09/06/22 07:32 Albutein IVPB 10/06/22 07:31 Q10M PRN HYPOTENSION Vancomycin HCl 1,250 mg in 250 mls @ 200 mls/hr 09/09/22 09:32 Vancomycin 1,250 Mg/D5w 250 Ml IVPB PRN PRN DIALYSIS DOSING PROTOCOL Cefepime HCl 1 gm/ Dextrose 100 mls @ 200 mls/hr 09/09/22 21:00 09/09/22 21:03 IVPB Infused Q24H YING Infusion Ipratropium [place] 0.5 mg 09/06/22 02:00
[2022-09-10] MEDS: BUDESONIDE RESPULE NEB 0.5 MG/2 ML AMP INHALATION (10:15)
--- NOTE | 2022-09-10 15:17 | PM.IMPN ---
Progress Note: A&P Assessment and Plan (1) Pneumonia: Code(s): J18.9 - Pneumonia, unspecified organism Status: Acute Assessment and Plan: blood [place] [id number] CXR Pneumonia left pleural effusion repeat cxr shows - 1. Stable moderate-sized right and small left pleural effusions. 2. Stable airspace opacities at right lung base, consistent with atelectasis versus pneumonia. 3. Cardiomegaly. continue IV antibiotics cefepime and vancomycin day 3 (2) Hypotension: Code(s): I95.9 - Hypotension, unspecified Status: Acute Assessment and Plan: Albumin boluses x2 and midodrine tid (3) Lab test positive for detection of COVID-19 virus: Code(s): U07.1 - COVID-19 Status: Acute Assessment and Plan: In the past (4) Atrial fibrillation: Code(s): I48.91 - Unspecified atrial fibrillation Status: Acute Assessment and Plan: History of atrial fibrillation Not on anticoagulation secondary to ileus muscle hematoma. Monitor heart rate and blood pressure (5) Acute metabolic encephalopathy: Code(s): G93.41 - Metabolic encephalopathy Status: Resolved (6) ESRD on dialysis: Code(s): N18.6 - End stage renal disease; Z99.2 - Dependence on renal dialysis Status: Chronic Assessment and Plan: CRF currently on dialysis continue to monitor bmp hypotensive pt is a dialysis pt pt had albumin bolusesx2 and midodrine last night (7) Anemia: Code(s): D64.9 - Anemia, unspecified Status: Chronic Assessment and Plan: ANEMIA Secondary to chronic renal failure. H&H 9.09/16 Monitor epogen if needed Plan History of hypothyroidism will resume Synthroid TSH is 11 repeat tsh in 2 weeks maybe increased levothyroxine Subjective Date/time seen: 09/10/22 15:17 77-year-old male patient who has a history of orthostatic hypotension on midodrine.? He also has chronic kidney disease on dialysis Friday and Friday.? He has a history of atrial fibrillation but Eliquis is on hold due to a recent iliopsoas hematoma.? The patient stated that he has been dizzy over the last 4 days.? He feels like the room is spinning.? When he turns his head or sits up he becomes very dizzy and has stated laying down.? The patient covered his eyes and was lying very still and that the only way to stop the dizziness.? He denied any blurred vision headaches nausea vomiting.? The patient had a chest x-ray that shows the followingWorsened moderate-sized right and small left pleural effusions. 2. Worsened airspace opacities in the mid and lower lung zones, right worse than left, consistent with atelectasis versus pneumonia.3. Cardiomegaly. Nephrology has been consulted for dialysis Pt admitted for Pneumonia, Esrd, Post Covid. Pt is feeling better, awaiting placement. medically stable to [facility]. Pt had low blood pressures at his dialysis yesterday evening had to have albumin infusion and midodrine Review of Systems Review of Systems: Denies cough fever or sob All systems reviewed & are unremarkable except as noted in HPI and below Exam Narrative: GENERAL: Well appearing, well-nourished NECK: Supple. No adenopathy, no masses. RESPIRATORY: Airway patent, respirations nonlabored. Clear to auscultation bilaterally, no rales, rhonchi, wheezing. CARDIOVASCULAR: Regular rate and rhythm without murmurs, rubs, or gallops. Peripheral pulses 2+ and equal bilaterally. ABDOMINAL: Soft, nontender, nondistended, no hepatosplenomegaly. Normoactive BS. MUSCULOSKELETAL: no Epigastric and no hypochondrial tenderness SKIN: Warm, dry, normal color. No rashes. NEURO: A&O X3. Moves all extremities PSYCHIATRIC: Appropriate mood and affect. Normal interaction. Objective Data Vital Signs Vital Signs: Vital Signs - 24 hr 09/09/22 15:20 09/09/22 15:40 09/09/22 15:42 Temperature Pulse Rate 71 72 86 Respiratory R
[2022-09-10] MEDS: CEFEPIME 1 GM in DEXTROSE 5% 100 ML IVPB (20:48)
[2022-09-10 23:37] LABS: Anion Gap 14 mmol/L (8-16); Blood Urea Nitrogen 14 mg/dL (9-20); Calcium 8.8 mg/dL (8.4-10.2); Carbon Dioxide 22 mmol/L (22-30); Chloride 103 mmol/L (98-107); Estimated CRCL calculation 17 ml/min; Estimated Glomerular Filt Rate 21; Glucose 98 mg/dL (65-110); Magnesium 2.2 mg/dL (1.6-2.3); Potassium 4.1 mmol/L (3.4-5.0); Sodium 139 mmol/L (137-145)
[2022-09-11] VITALS (23 sets, daily range): BP systolic 66–101; BP diastolic 31–81; PULSE 81–178; RESP 14–30; TEMP 36.4; O2SAT 95–100
--- NOTE | 2022-09-11 | ECHO_ITS ---
Patient Info Name: Elias Aguirre Age: 77 years : 1945 Gender: Male Ht: 66 in Wt: 167 lbs BSA: 1.89 m2 HR: 48 bpm BP: 80 / 50 mmHg Heart Rhythm: Atrial Fibrillation Exam Date: 09/11/2022 12:24 PM Exam Location: [facility] Patient Status: Inpatient Admit Date: 09/07/2022 Staff Ordering Physician: Misael Silva MD [employer] Program Associate: Lamont Brennan RDCS, RT Attending Provider: Wilber Meade MD Exam Type: CA echo dop color flow w con Study Info Indications I49.8 - Other specified cardiac arrhythmias Complete two-dimensional, color flow and Doppler transthoracic echocardiogram is performed with contrast to opacify the left ventricle and to improve the deliniation of the left ventricle endocardial borders. Summary 1. Left ventricular chamber dimension is moderately enlarged. 2. Left ventricular systolic function is severely reduced, estimated at 15-20%. 3. There is severe global hypokinesis with hypokinesis-akinesis of the basal LV segments. 4. Right ventricular chamber dimension is enlarged. 5. Right ventricular systolic function is reduced. 6. Left atrial chamber dimension is moderately enlarged. 7. Right atrial chamber dimension is severely enlarged. 8. There is moderate aortic valve calcification. 9. There is severe mitral valve regurgitation. 10. There is severe tricuspid valve regurgitation. 11. There is mild pulmonic regurgitation. 12. Dilated inferior vena cava with <50% collapse upon inspiration consistent with significantly elevated right atrial pressure, 15 mmHg. Left Ventricle There is severe global hypokinesis with hypokinesis-akinesis of the basal LV segments. Left ventricular chamber dimension is moderately enlarged. Left ventricular systolic function is severely reduced, estimated at 15-20%. There is no increased left ventricular wall thickness. Right Ventricle Right ventricular chamber dimension is enlarged. Right ventricular systolic function is reduced. Left Atria Left atrial chamber dimension is moderately enlarged. Right Atria Right atrial chamber dimension is severely enlarged. Atrial Septum Intact interatrial septum visualized by color flow imaging. Aortic Valve The aortic valve is trileaflet. There is no aortic valve stenosis with a peak velocity of 124.76 cm/s, mean gradient of 1 mmHg, and aortic valve area of 1.91 cm2. There is no aortic valve regurgitation. There is moderate aortic valve calcification. Pulmonic Valve The pulmonic valve is not well visualized. There is mild pulmonic regurgitation. Mitral Valve The mitral valve has thickened leaflets. There is severe mitral valve regurgitation. Tricuspid Valve There is severe tricuspid valve regurgitation. Pericardium/Pleural Pericardium is normal in appearance with no evidence for significant pericardial effusion. Inferior Vena Cava Dilated inferior vena cava with <50% collapse upon inspiration consistent with significantly elevated right atrial pressure, 15 mmHg. Aorta The aortic root size at the sinus of Valsalva is normal. Left Ventricular Outflow Tract Name Value Normal LVOT 2D LVOT Diameter 2.00 cm LVOT Doppler
[2022-09-11] MEDS: IPRATROPIUM BR 0.02% INH SOLN 0.5 MG/2.5 ML VIAL INHALATION ×2 (02:56→08:21)
[2022-09-11] MEDS: ALBUTEROL SULFATE NEB 2.5 MG/3 ML INH INHALATION ×2 (02:56→08:21)
[2022-09-11] MEDS: LEVOTHYROXINE SODIUM 25 MCG TABLET PO (06:44)
[2022-09-11 07:41] LABS: Anion Gap 20 mmol/L (8-16); Blood Urea Nitrogen 15 mg/dL (9-20); Calcium 8.9 mg/dL (8.4-10.2); Carbon Dioxide 17 mmol/L (22-30); Chloride 104 mmol/L (98-107); Estimated CRCL calculation 16 ml/min; Estimated Glomerular Filt Rate 20; Glucose 92 mg/dL (65-110); Mean Corpuscular HGB Conc 30.3 g/dl (32-36); Mean Corpuscular Hemoglobin 36.2 pg (26-34); Mean Corpuscular Volume 119.6 fl (80-100); Mean Platelet Volume 11.7 fl (7.4-10.4); Platelet Count Result 121 k/mm3 (150-375); Red Blood Count 2.76 M/mm3 (4.6-6.20); Red Cell Distribution Width 22.8 % (11.5-14.5); Sodium 141 mmol/L (137-145)
[2022-09-11] MEDS: ACIDOPHILUS/BULGARICUS CHEWABLE TABLET 1 TABLET PO (08:37)
[2022-09-11] MEDS: MIDODRINE HCL 10 MG TABLET PO (08:37)
[2022-09-11] MEDS: CHOLECALCIFEROL 400 UNITS TABLET (VIT D) PO (08:37)
[2022-09-11] MEDS: MECLIZINE HCL 6.25 MG TABLET PO (08:37)
[2022-09-11 09:21] LABS: Alveolar/Arterial O2 Gradient 56.8 mmHg; Base Excess ABG -4.9 mEq/l (+/-2.0); Fractional Inspired Oxygen 28 %; HCO3 ABG 17.6 mEq/l (22.0-26.0); Oxygen Content ABG 14.6 %vol (16.0-22.0); Oxygen Saturation ABG 98.4 % (95.0-100.0); Oxyhemoglobin 96.7 % THb (90.0-100.0); PCO2 ABG 25.2 mmHg (35.0-45.0); PO2 ABG 113.1 mmHg (80.0-100.0); PO2 FiO2 Ratio Arterial Blood 4.04 %; Total Hemoglobin 10.6 g/dL (12.0-18.0); pH ABG 7.462 (7.350-7.450)
[2022-09-11 09:22] LABS: Device NASAL CANNULA; Modified Allen's Test Pass; Site Drawn RIGHT RADIAL
--- NOTE | 2022-09-11 09:45 | PM.IMPN ---
Progress Note: A&P Assessment and Plan (1) Pneumonia: Code(s): J18.9 - Pneumonia, unspecified organism Status: Acute Assessment and Plan: blood culture [place] [id number] which has worsened CXR Pneumonia left pleural effusion repeat cxr shows - 1. Stable moderate-sized right and small left pleural effusions. 2. Stable airspace opacities at right lung base, consistent with atelectasis versus pneumonia. 3. Cardiomegaly. continue IV antibiotics cefepime and vancomycin day 4 (2) Hypotension: Code(s): I95.9 - Hypotension, unspecified Status: Acute Assessment and Plan: Albumin boluses x2 and midodrine tid (3) Lab test positive for detection of COVID-19 virus: Code(s): U07.1 - COVID-19 Status: Acute Assessment and Plan: In the past July 2022 (4) Atrial fibrillation: Code(s): I48.91 - Unspecified atrial fibrillation Status: Acute Assessment and Plan: History of atrial fibrillation Not on anticoagulation secondary to recent ileus muscle hematoma. Monitor heart rate and blood pressure (5) Acute metabolic encephalopathy: Code(s): G93.41 - Metabolic encephalopathy Status: Resolved (6) ESRD on dialysis: Code(s): N18.6 - End stage renal disease; Z99.2 - Dependence on renal dialysis Status: Chronic Assessment and Plan: CRF currently on dialysis continue to monitor bmp hypotensive pt is a dialysis pt pt had required albumin bolusesx2 and placed on midodrine (7) Anemia: Code(s): D64.9 - Anemia, unspecified Status: Chronic Assessment and Plan: ANEMIA Secondary to chronic renal failure. H&H Monitor epogen if needed (8) Arrhythmia: Code(s): I49.9 - Cardiac arrhythmia, unspecified Status: Acute Assessment and Plan: patient presented with unstable arrhythmia white complex tachycardia AFib with RVR versus ventricular tachycardia Self resolves however recurrent Started on amiodarone bolus and infusion Transfer to ICU Cardiology consult Serial troponin Echocardiogram discussed with water quality manager (9) Shock: Code(s): R57.9 - Shock, unspecified Status: Acute Plan History of hypothyroidism will resume Synthroid TSH is 11 repeat tsh in 2 weeks maybe increased levothyroxine Time Spent With Patient Time: Discussed with family at bedside this phone full code status Critical care time 35 minutes Subjective Date/time seen: 09/11/22 09:45 Interval history: Discussed with nursing staff. Mild hypoxia and confusion noted placed on nasal cannula. ABG reviewed. Chest x-ray with moderate size right and small left pleural effusions stable airspace opacities of the lower right lung base consistent with atelectasis versus pneumonia with cardiomegaly, chronically hypotensive While evaluating this a.m. he had brief episodes of unresponsiveness which was coincident with wide complex tachycardia suspected to be V-tach. Rapid response was called and IC was consulted. Patient was transferred to the ICU and amiodarone drip was started. He was also subsequently started on IV pressors cardiology consult Review of Systems Review of Systems: All systems reviewed & are unremarkable except as noted in HPI and below Exam Narrative: GENERAL: ill-appearing, intermittently unresponsive NECK: Supple. No adenopathy, no masses. RESPIRATORY: Airway patent, respirations nonlabored. Clear to auscultation bilaterally, no rales, rhonchi, wheezing. CARDIOVASCULAR: Regular rate and rhythm without murmurs, rubs, or gallops. Peripheral pulses 2+ and equal bilaterally. ABDOMINAL: Soft, nontender, nondistended, no hepatosplenomegaly. Normoactive BS. MUSCULOSKELETAL: no Epigastric and no hypochondrial tenderness SKIN: Warm, dry, normal color. No rashes. NEURO: A&O X3. Moves all extremities PSYCHIATRIC: Appropriate mood and affect. Normal interaction. Object
--- NOTE | 2022-09-11 10:00 | ECG_ITS ---
Measurements Intervals [place] Rate: 97 P: [place]: 0 QRS: -15 QRSD: 133 T: 125 QT: 348 QTc: 443 Interpretive Statements ATRIAL FIBRILLATION VENTRICULAR PREMATURE COMPLEX LEFT BUNDLE BRANCH BLOCK BASELINE WANDER- II, III ABNORMAL ECG COMPARED TO ECG 09/05/2022 16:39:27 NO SIGNIFICANT CHANGES Electronically Signed On 09-11-2022 10:55:21 [employer] by Vikram Ochoa D.O.
--- NOTE | 2022-09-11 10:05 | PC.NURSE ---
0840-Patient presenting with acute intermittent confusion, shortness of breath, hypoxia, and hypotension. Applied 2L NC and notified RT of shortness of breath and requesting breathing treatment. Administered 0900 dose of midodrine. Left message for Dr Corrales r/t patient's condition changes, and requesting ABG, and MD to bedside. Will recheck BP in one hour. 0950-Responding to what appears to be sustained Vtach. Dr Corrales at the bedside already evaluating patient. Patient unresponsive but has palpable pulses. Rapid response called.
--- NOTE | 2022-09-11 10:18 | PC.NURSE ---
This patient, Elias Aguirre, was transferred to ICU 2 on 09/11/22 at 1018. Personal belongings sent with patient. Report given to Yvette LICONA. Appropriate documentation sent with patient.
--- NOTE | 2022-09-11 10:20 | PC.NURSE ---
pt transferred from IMU room 211; bedside report received from Herminio LICONA; Dr. Silva at bedside
[2022-09-11 10:31] LABS: Glucose Point of Care 164 mg/dl (65-105)
[2022-09-11] MEDS: SODIUM CHLORIDE 0.9% IV 500 ML 999 ML IV CONT (10:35)
[2022-09-11] MEDS: AMIODARONE 150 MG/D5W 100 ML 150 MG/100 ML BAG 600 MG IV CONT (10:37)
[2022-09-11] MEDS: AMIODARONE 360 MG/D5W 200 ML 360 MG/200 ML BAG 33.33 MG IV CONT (10:41)
--- NOTE | 2022-09-11 10:44 | WPDCNINT ---
Assessment and Plan Assessment and plan (1) Arrhythmia: Code(s): I49.9 - Cardiac arrhythmia, unspecified Status: Acute Assessment and Plan: Patient had wide complex tachycardia which could be AFib with RVR with bundle branch block or a V-tach. Patient maintained his pulse although he appeared more confused during the time EKG shows AFib Amiodarone bolus and infusion Check electrolytes Check echocardiogram Consult cardiology Serial troponin (2) Pneumonia: Code(s): J18.9 - Pneumonia, unspecified organism Status: Acute Assessment and Plan: Patient was admitted with diagnosis of pneumonia Blood cultures have been negative He is currently on vancomycin and cefepime. Continue vancomycin change cefepime to imipenem Repeat blood culture (3) Hypotension: Code(s): I95.9 - Hypotension, unspecified Status: Acute Assessment and Plan: Patient became hypotensive which could be secondary to arrhythmia Patient has chronically low blood pressure and is on my to drain Patient is giving 500 cc fluid bolus If he remains hypotensive he will need vasopressors to support his blood pressure Check lactic acid level Not a candidate for liberal IV fluids to congestive for failure and end-stage disease (4) Lab test positive for detection of COVID-19 virus: Code(s): U07.1 - COVID-19 Status: Acute Assessment and Plan: Patient has been positive for COVID-19 for close to a month (5) Chronic anemia: Code(s): D64.9 - Anemia, unspecified Status: Acute Assessment and Plan: Patient has multiple causes of anemia including end-stage renal disease and had recent iliopsoas hematoma Hemoglobin has been essentially stable Not on any anticoagulation CBC ordered and pending (6) Atrial fibrillation: Code(s): I48.91 - Unspecified atrial fibrillation Status: Acute Assessment and Plan: See above Not on any anticoagulation due to recent hematoma (7) Acute metabolic encephalopathy: Code(s): G93.41 - Metabolic encephalopathy Status: Resolved Assessment and Plan: Patient AO x3 at this time Head CT was negative acute change on admission Continue to avoid sedatives and monitor (8) End stage renal disease: Code(s): N18.6 - End stage renal disease Status: Chronic Assessment and Plan: Patient received his hemodialysis on Friday is due today. Due to current hemodynamic instability will hold hemodialysis at this time Plan DVT prophylaxis -SCDs Nutrition -NPO at this Code Status -patient and his request the patient is a Full Code Total Critical Care Time - 40 minutes Due to a high probability of clinically significant, life threatening deterioration, the patient required my highest level of preparedness to intervene emergently and I personally spent this critical care time directly and personally managing the patient. This critical care time included obtaining a history; examining the patient; pulse oximetry; ordering and review of studies; arranging urgent treatment with development of a management plan; evaluation of patient's response to treatment; frequent reassessment; and discussions with other providers. It was exclusive of separately billable procedures and treating other patients and teaching time. Please see Assessment and Plan section and the rest of the note for further information on patient assessment and treatment Binding Nicker Consult Note Consult date: 09/11/22 Reason for consult: Arrhythmia, hypoxia HPI: Elias Aguirre is a 77 year old male patient with extensive medical problems and has a history of orthostatic hypotension on midodrine, end-stage renal disease on dialysis, congestive heart failure, AFib but not on any anticoagulation due to recent iliopsoas hematoma was admitted 09/05 with complaint of dizziness dizzy for 4 days.? On presentation his chest x-ray showed 1. Worsened moderate-sized r
[2022-09-11 10:53] LABS: Basophils Absolute Auto 0.1 K/mm3 (0.0-0.1); Basophils Percent Auto 0.6 % (0.2-1.2); Eosinophils Absolute Auto 0.2 K/mm3 (0-0.3); Eosinophils Percent Auto 1.1 % (0-4.4); Hematocrit 32.2 % (42.0-52.0); Hemoglobin 9.3 g/dL (14.0-18.0); Immature Granulocyte Absolute 0.78 K/mm3 (0.00-0.031); Immature Granulocyte Percent A 4.3 % (0-0.5); Lymphocytes Absolute Auto 2.05 K/mm3 (0.9-3.2); Lymphocytes Percent Auto 11.4 % (18.3-44.2); Mean Corpuscular HGB Conc 28.9 g/dl (32-36); Mean Corpuscular Hemoglobin 35.4 pg (26-34); Mean Corpuscular Volume 122.4 fl (80-100); Mean Platelet Volume 11.9 fl (7.4-10.4); Monocytes Absolute Auto 1.1 K/mm3 (0.1-0.6); Monocytes Percent Auto 6.2 % (2.6-8.5); Neutrophils Absolute Auto 13.8 K/mm3 (1.3-6.7); Neutrophils Percent Auto 76.4 % (45.5-73.1); Nucleated Red Blood Cells Absolute Auto 0.1 K/mm3 (0.0-0.012); Nucleated Red Blood Cells Perc 0.7 % (0.0-0.2); Platelet Count Result 118 k/mm3 (150-375); Red Blood Count 2.63 M/mm3 (4.6-6.20); Red Cell Distribution Width 22.5 % (11.5-14.5)
[2022-09-11 11:07] LABS: Anisocytosis 3+ (NORMAL); Hyperchromasia 1+ (NORMAL); Macrocytosis 2+ (NORMAL); Poikilocytosis 1+ (NORMAL); Schistocytes None Seen (NORMAL)
[2022-09-11 11:20] LABS: Alanine Aminotransferase 45 U/L (6-50); Albumin Level 3.1 g/dL (3.5-5.1); Alkaline Phosphatase 66 U/L (38-126); Anion Gap 21 mmol/L (8-16); Aspartate Amino Transferase 55 U/L (17-59); Bilirubin,Total 2.5 mg/dL (0.2-1.3); Blood Urea Nitrogen 15 mg/dL (9-20); Calcium 8.6 mg/dL (8.4-10.2); Carbon Dioxide 15 mmol/L (22-30); Chloride 104 mmol/L (98-107); Estimated CRCL calculation 16 ml/min; Estimated Glomerular Filt Rate 20; Glucose 139 mg/dL (65-110); Magnesium 2.3 mg/dL (1.6-2.3); Sodium 140 mmol/L (137-145)
[2022-09-11 11:23] LABS: Lactic Acid Reflex 11.9 mmol/L (0.7-2.0)
--- NOTE | 2022-09-11 11:46 | WPDPROCEDUR ---
Procedures Central Line Placement Right Femoral: Central Line Date: 09/11/22 Central Line Time: 11:15 Discussed w/ the patient/family/POA,the placement of a central venous catheter, including its clinical necessity/indication & associated potential risks, benifits and alternatives.: Yes The patient/family/POA understand(s) and acknowledge(s) the need to proceed with central venous catheter insertion as an important element of the patient's clinical management.: Yes Consent: I have discussed with the patient and/or surrogate, the non-emergent placement of a central venous catheter, including its clinical necessity/indication and associated potential risks and complications. The patient and/or surrogate understand(s) and acknowledge(s) the need to proceed with central venous catheter insertion as an important element of the patient's clinical management. Time Out Performed: Yes Patient Position: other Patient placed on monitor/pulse ox: Yes Provider Prep: mask, sterile gown, sterile gloves, Max. sterile barrier precautions, cap and hand hygiene with conventional soap/water or alcohol based hand rub Central line prep: Povidone-Iodine 1% Local anesthesia used: lidocaine 1% Amount of anesthesia used (ml): 5 Central line lumen inserted: triple Length (cm): 16 Depth of Insertion (cm): 16 Post Procedure: sutured in place, good blood return, all ports aspirated, flushed, capped, transparent dressing, antimicrobial product and aseptic technique maintained throughout procedure Patient tolerated procedure: well Complications: none Additional comments: Due to hypoxia patient unable to lay flat IJ central line. Femoral central venous catheter was placed emergently due to hypotension, poor IV access and need for for vasopressors
--- NOTE | 2022-09-11 12:13 | ECG_ITS ---
Measurements Intervals [place] Rate: 102 P: [place]: 0 QRS: -39 QRSD: 148 T: 117 QT: 386 QTc: 503 Interpretive Statements ATRIAL FIBRILLATION WITH RAPID VENTRICULAR RESPONSE LEFT BUNDLE BRANCH BLOCK BASELINE ARTIFACT- I, II, III, V6 ABNORMAL ECG COMPARED TO ECG 09/11/2022 10:06:16 NO SIGNIFICANT CHANGES Electronically Signed On 09-16-2022 11:55:04 [employer] by Vikram Ochoa D.O.
[2022-09-11 12:23] LABS: Procalcitonin 0.7 ng/mL
[2022-09-11] MEDS: ONDANSETRON INJ 4 MG/2 ML VIAL IV PUSH (12:29)
[2022-09-11] MEDS: SODIUM BICARBONATE 8.4% 50 MEQ/50 ML SYRINGE IV PUSH ×2 (12:29→13:00)
--- NOTE | 2022-09-11 12:38 | P.PNNP_ITS ---
Progress Note: A&P Assessment and Plan (1) End stage renal disease: Code(s): N18.6 - End stage renal disease Status: Chronic Assessment and Plan: * HD was scheduled for today * however, given significant change in clinical condition along with need for vasopressor therapy, this will be held * will reassess stability for dialysis later on * follow electrolytes, volume status, and clearance (2) Shock: Code(s): R57.9 - Shock, unspecified Status: Acute Assessment and Plan: * cardiac versus septic versus other?? * complicated by associated arrhythmia issues (Afib with RVR +/- Vtach) * vasopressor therapy to maintain MAP * amiodarone infusion * Cardiology to see * Echo ordered * follow telemetry and troponins (3) Pneumonia: Code(s): J18.9 - Pneumonia, unspecified organism Status: Acute Assessment and Plan: * as suggested by admission imaging * follow culture data * on antibiotic therapy * breathing treatments PRN * post COVID-19 infection (4) BPV (benign positional vertigo): Code(s): H81.10 - Benign paroxysmal vertigo, unspecified ear Status: Acute Assessment and Plan: * exacerbated by hypotension(?) * started on meclizine * follow symptoms (5) Hypotension: Code(s): I95.9 - Hypotension, unspecified Status: Acute Assessment and Plan: * chronic issue at baseline * on midodrine therapy * follow BP readings (6) Chronic anemia: Code(s): D64.9 - Anemia, unspecified Status: Acute Assessment and Plan: * due to ESRD * Epogen with HD * follow H/H Remains critically ill at this time with ongoing need for vasopressor support as noted -- prognosis guarded. Will continue to follow. Subjective Date/time seen: 09/11/22 12:38 Events noted earlier in the day -- rapid response called due to altered mental status and in association with atrial fibrillation with RVR (versus possible V- tach). Mentation improved as heart rate stabilized but did admit to some shortness of breath and abdominal pain. Subsequently transferred to ICU where he was started on IV amiodarone along with 500cc fluid bolus due to hypotension. Due to ongoing hypotension, emergent central line was placed and he was started on vasopressor therapy to maintain her MAP (has chronic hypotension at baseline). Mentation appears to be doing better at this time. Exam Narrative: General: ill appearing elderly male in moderated distress Heart: IRRR; tachycardic normal S1 and S2; no rub Lungs: decreased/diminished at bases Abdomen: soft, nontender, nondistended, positive bowel sounds Extremities: no cyanosis or clubbing; no edema Skin: warm and dry Objective Data Vital Signs Vital Signs: Vital Signs Temp Pulse Resp BP Pulse Ox O2 Del Method O2 Flow Rate 09/11/22 12:00 Nasal Cannula 5 09/11/22 12:30 85 79/63 L 09/11/22 12:00 91 30 H 85/62 L 95 09/11/22 12:15 100 85/62 L 09/11/22 12:00 96 80/58 L 09/11/22 11:44 86 73/63 L 09/11/22 10:55 98 26 H 80/64 L 09/11/22 11:21 106 H 79/64 L 09/11/22 10:50 81 26 H 78/66 L 09/11/22 10:47 178 H 93/66 L Nasal Cannula 3 09/11/22 08:47 100 Nasal Cannula 2 09/11/22 08:22 100 Nasal Cannu
--- NOTE | 2022-09-11 12:38 | PM.PNNEP ---
Progress Note: A&P Assessment and Plan (1) End stage renal disease: Code(s): N18.6 - End stage renal disease Status: Chronic Assessment and Plan: HD was scheduled for today however, given significant change in clinical condition along with need for vasopressor therapy, this will be held will reassess stability for dialysis later on follow electrolytes, volume status, and clearance (2) Shock: Code(s): R57.9 - Shock, unspecified Status: Acute Assessment and Plan: cardiac versus septic versus other?? complicated by associated arrhythmia issues (Afib with RVR +/- Vtach) vasopressor therapy to maintain MAP amiodarone infusion Cardiology to see Echo ordered follow telemetry and troponins (3) Pneumonia: Code(s): J18.9 - Pneumonia, unspecified organism Status: Acute Assessment and Plan: as suggested by admission imaging follow culture data on antibiotic therapy breathing treatments PRN post COVID-19 infection (4) BPV (benign positional vertigo): Code(s): H81.10 - Benign paroxysmal vertigo, unspecified ear Status: Acute Assessment and Plan: exacerbated by hypotension(?) started on meclizine follow symptoms (5) Hypotension: Code(s): I95.9 - Hypotension, unspecified Status: Acute Assessment and Plan: chronic issue at baseline on midodrine therapy follow BP readings (6) Chronic anemia: Code(s): D64.9 - Anemia, unspecified Status: Acute Assessment and Plan: due to ESRD Epogen with HD follow H/H Remains critically ill at this time with ongoing need for vasopressor support as noted -- prognosis guarded. Will continue to follow. Subjective Date/time seen: 09/11/22 12:38 Events noted earlier in the day -- rapid response called due to altered mental status and in association with atrial fibrillation with RVR (versus possible V-tach). Mentation improved as heart rate stabilized but did admit to some shortness of breath and abdominal pain. Subsequently transferred to ICU where he was started on IV amiodarone along with 500cc fluid bolus due to hypotension. Due to ongoing hypotension, emergent central line was placed and he was started on vasopressor therapy to maintain her MAP (has chronic hypotension at baseline). Mentation appears to be doing better at this time. Exam Narrative: General: ill appearing elderly male in moderated distress Heart: IRRR; tachycardic normal S1 and S2; no rub Lungs: decreased/diminished at bases Abdomen: soft, nontender, nondistended, positive bowel sounds Extremities: no cyanosis or clubbing; no edema Skin: warm and dry Objective Data Vital Signs Vital Signs: Vital Signs Temp Pulse Resp BP Pulse Ox O2 Del Method O2 Flow Rate 09/11/22 12:00 Nasal Cannula 5 09/11/22 12:30 85 79/63 L 09/11/22 12:00 91 30 H 85/62 L 95 09/11/22 12:15 100 85/62 L 09/11/22 12:00 96 80/58 L 09/11/22 11:44 86 73/63 L 09/11/22 10:55 98 26 H 80/64 L 09/11/22 11:21 106 H 79/64 L 09/11/22 10:50 81 26 H 78/66 L 09/11/22 10:47 178 H 93/66 L Nasal Cannula 3 09/11/22 08:47 100 Nasal Cannula 2 09/11/22 08:22 100 Nasal Cannula 2 09/11/22 08:00 108 H 09/11/22 09:50 86/50 L 09/11/22 08:00 97.6 F 111 H 14 79/31 L 98 09/11/22 08:39 99 Nasal Cannula 4 09/11/22 08:26 102 H 18 09/11/22 08:15 101 H 18 09/11/22 04:00 108 H 09/11/22 03:07 95 18 09/11/22 02:56 106 H 18 09/11/22 00:00 115 H 09/10/22 20:00 98 09/11/22 00:00 97.5 F L 109 H 20 85/53 L 100 09/10/22 20:00 Room Air 09/10/22 20:00 95/61 L 09/10/22 20:00 97.6 F 89 18 81/68 L 100 09/10/22 20:00 81/68 L 09/10/22 20:50 98 18 09/10/22 20:36 94 Room Air 09/10/22 20:35
[2022-09-11] MEDS: NOREPINEPHRINE 8 MG/D5W 250 ML 8 MG/250 ML BAG 9.38 MG IV CONT (12:49)
[2022-09-11] MEDS: MORPHINE SULFATE (*CRX) 2 MG/ML INJ IV PUSH (12:59)
[2022-09-11 13:08] LABS: Lipase 41 U/L (23-300)
--- NOTE | 2022-09-11 13:12 | PM.EVENT ---
Event Note Event Note Event Note: Patient continues to deteriorate hemodynamically. He is now on 2 vasopressors for blood pressure support. One amp of bicarb and mother 500 cc of 4 bolus was given. Patient continues to complain of abdominal pain which is mostly located in hypogastrium area. Morphine IV was given pain control. Patient has minimally elevated procalcitonin suggesting against sepsis as etiology of the shock. Cardiogenic shock is the likely possibility. Elevated lactic CT scan suggest hypoperfusion but may also indicate bowel ischemia considering patient is having abdominal pain. CT scan of abdomen pelvis is ordered and is pending. Patient will be transferred to radiology once hemodynamically stable. Echocardiogram was done and shows biventricular failure with severe MR and TR. Will place Vick catheter. Patient is AO x3. Patient's states the patient has been a in the shelter since July 29. He has been in and out of the hospital and shelter recently and has been unable to walk by himself. I discussed case with Serging Machine Operator Automatic Dr. Baldwin who was atbedside and reviewed his ECHO. We again had extensive discussion with patient and his in presence of nurse Crawford regarding patient's current status and deteriorating hemodynamics. We also discussed patient's echocardiogram results with patient and his . I mentioned possibility of him needing intubation mechanical ventilation and also possibility of a cardiac arrest. Patient understands that he is critically ill and may not survive this hospitalization. He wishes to be DNR and DNI. Does not want any CPR or intubation and mechanical ventilation. Patient's was at bedside and was present when patient expressed his wishes. States she is not in agreement but does and understand and will respect patient's wishes. She states she has notified patient's all 3 sons who do not live locally. Code status was changed in the chart as per patient's wishes. Additional Critical Care Time - 60 minutes Due to a high probability of clinically significant, life threatening deterioration, the patient required my highest level of preparedness to intervene emergently and I personally spent this critical care time directly and personally managing the patient. This critical care time included obtaining a history; examining the patient; pulse oximetry; ordering and review of studies; arranging urgent treatment with development of a management plan; evaluation of patient's response to treatment; frequent reassessment; and discussions with other providers. It was exclusive of separately billable procedures and treating other patients and teaching time. Please see Assessment and Plan section and the rest of the note for further information on patient assessment and treatment
--- NOTE | 2022-09-11 13:15 | PM.CNCAR ---
Assessment and Plan Assessment and plan (1) Shock: Code(s): R57.9 - Shock, unspecified Status: Acute (2) Atrial fibrillation: Code(s): I48.91 - Unspecified atrial fibrillation Status: Acute (3) Mitral regurgitation: Code(s): I34.0 - Nonrheumatic mitral (valve) insufficiency Status: Acute (4) End stage renal disease: Code(s): N18.6 - End stage renal disease Status: Chronic (5) LV dysfunction: Code(s): I51.9 - Heart disease, unspecified Status: Acute (6) Pneumonia: Code(s): J18.9 - Pneumonia, unspecified organism Status: Acute Plan Patient is currently in shock on 2 pressors, and still hypotensive. Telemetry with atrial fibrillation with LBBB. On Amiodarone with decent rate control. Preliminary review of TTE being done at bedside shows severe biventricular failure with severe mitral regurgitation and severe tricuspid regurgitation. Likely has a component of cardiogenic shock. Cannot use Dobutamine due to it likely worsening his AFIB and putting him into RVR. Cannot use Milrinone due to his ESRD. At this time, would continue with pressors. Had a discussion with the patient and his family at bedside regarding his current status. Prognosis is very poor, and I do not think patient will survive this hospitalization. Patient clearly stated that he does not want aggressive or invasive procedures done and he wants to be DNR/DNI. Code status changed to DNR. Will continue with supportive care and medical management. Will continue to follow along. History of Present Illness History of Present Illness Consult date/time: 09/11/22 13:15 Requesting physician: Misael Silva MD Consult reason: atrial fibrillation Reason For Visit: pneumonia, sepsis Narrative: This is a 77-year-old male who is very well known to us. He has a history of CAD s/p prior PCI, atrial fibrillation, severe mitral regurgitation, moderate tricuspid regurgitation, moderate aortic stenosis, ESRD on HD who has been in and out of the hospital with multiple hospitalizations. This time, patient admitted on 09/05 with dizziness for several days. Admitted with concern for pneumonia. This morning, a rapid response called due to patient being mentally altered and having arrhythmia. When ICU team arrived to patient, he was in AFIB with RVR, concern whether there was VT (patient does have baseline LBBB). Amiodarone given. Patient transferred to the ICU. Patient is now in shock requiring two pressors, has a WBC of 18, Lactate is 12. EKGs and telemetry reviewed which show AFIB with LBBB. At bedside evaluation, patient appears to be critically ill. He is reporting abdominal pain. Review of Systems Review of Systems: 12-point ROS obtained. Negative, unless stated in HPI. [facility] Past Medical History Medical History Anemia of chronic disease Arthritis Atrial fibrillation Cataracts, bilateral Maturing Cervical spinal stenosis Chronic anemia Coronary artery disease History of non STEMI in May 2018 status post drug-eluting stent to the LAD. 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 financing analyst anticoagulation Diabetic peripheral neuropathy Diverticular hemorrhage Diverticulitis End-stage renal disease on hemodialysis Erythropoietin deficiency anemia Heart failure with preserved ejection fraction Echocardiogram in June 2019 showed a severely enlarged left atrial chamber, normal left ventricular size with moderate concentric left ventricular hypertrophy, left ventricular function is at the lower end of normal with an estimated ejection fraction 50-55% (although calculated at 63%), no wall motion abnormalities, moderate aortic valve calcification with no significant stenosis, moderate to moderately severe eccentric mitral valve regurgitation, mild tricuspid valve regurgitation, estimated pulmonary arterial systolic pressure of 32 mmHg, dilated inferior vena cava with <50% collapse upon inspirat
--- NOTE | 2022-09-11 13:59 | PM.EVENT ---
Event Note Event Note Event Note: Was patient blood pressure improved patient was taken down for a CT scan. When patient was placed on CT scan table patient lost his pulse and went into asystole. As per patient's expressed wishes of being DNR and DNI, CPR was not performed. I was called by nurse from CT scanner and went to see the patient. At that time patient had no pulse, few agonal breaths and he was in slow bradycardia with heart rate in 20s. Patient was quickly transported back to ICU. Patient remained in essentially asystole occasional electrical activity, no palpable pulses in either of the major arteries and no heart sounds. Patient was pronounced at 1:55 p.m.. Patient's is at bedside and was updated. Additional critical care time -25 minutes
[2022-09-11 14:00] LABS: Reflex Lactic Acid Yes or No Add Lactic
--- NOTE | 2022-09-11 18:07 | PM.DDS ---
Discharge Summary Date and Time Date of : 09/11/22 Time of : 13:55 Provider Pronounced By: MONAE Ellsworth RN Probable Cause of Probable Cause of : cardiogenic shock Possible sepsis with lactic acidosis unclear etiology possible pneumonia Atrial fibrillation with rapid ventricular rate Summary Hospital Course: This is a 69-year-old male with past medical history of end-stage renal disease on hemodialysis. Recent iliopsoas hematoma, atrial fibrillation. Eliquis on hold due to hematoma heart failure with preserved ejection fraction presented with dizziness on 09/05/2022. A chest x-ray showed worsened moderate right and small left pleural effusions with worsened opacities in the mid and lower lungs lesions. Use treated for pneumonia as healthcare associated pneumonia with broad-spectrum antibiotics. CT brain without contrast was negative. Nephrology was consulted for inpatient hemodialysis. He has chronic hypotension was maintained with midodrine. He has mildly elevated troponin which is chronic likely related to his underlying renal disease. On 09/11/2022 he had altered mental status with intermittent unresponsiveness correlated with arrhythmia AFib with RVR versus ventricular tachycardia. He was also hypotensive and hence was transferred to the ICU was started on IV pressors. For his arrhythmia he was started on amiodarone bolus and infusion to control his rate.A chest x-ray showed increasing small to moderate right pleural effusion and unchanged tiny left pleural effusion. His further workup showed elevated lactic acidosis and echocardiogram showed biventricular failure with severe MR and TR with left ventricular systolic function severely reduced at 15-20%, severe global hypokinesis with hypokinesis akinesis of the basal LV segments. Troponin came back elevated as well. Cardiology was consulted. Upon discussing with patient and his and his critical illness goals goals of care were discussed. He was subsequently made DNR DNI as per his wishes. As part of further workup he was sent for CT scan of the abdomen pelvis where he went into asystole. Following his wishes no resuscitative measures were undertaken and subsequently was pronounced at 1:55 p.m. Additional Data Confirmation of as documented by pronouncing clinician: Pupillary Reflex, Palpable Pulses, Response to Stimuli, Heart Tones and Breath Sounds Name of Provider Notified: Dr. Silva, Dr. Corrales Time Provider Notified: 14:00 Provider Requests Autopsy: No Family Requests Autopsy: No Poultry Picking Machine Tender Notified: Yes Date [facility] Notified of : 09/11/22 Time [facility] Notified of : 14:34
== END 2022-09-11 13:55 | disposition expired | DRG 871 ==
LOC: ANHED 18:30 → ANHIMU 20:42 → ANHICU 09-12 11:45 → ANHIMU 09-12 11:45
PROVIDERS: Family Medicine; Internal Medicine; Nurse Practitioner; Physician Assistant; Admitting Provider Internal Medicine; Emergency Provider Emergency Medicine; PCP Family Medicine; Visit Provider Internal Medicine
DX: A41.9 Sepsis, unspecified organism; G93.41 Metabolic encephalopathy; J18.9 Pneumonia, unspecified organism; N18.6 End stage renal disease; U07.1 COVID-19; I13.2 Hypertensive heart and chronic kidney disease with heart failure and with stage 5 chronic kidney disease, or end stage renal disease; I50.32 Chronic diastolic (congestive) heart failure; I47.20 Ventricular tachycardia, unspecified; I46.9 Cardiac arrest, cause unspecified; R57.0 Cardiogenic shock; U09.9 Post COVID-19 condition, unspecified; Z66 Do not resuscitate; I95.1 Orthostatic hypotension; D63.1 Anemia in chronic kidney disease; E11.22 Type 2 diabetes mellitus with diabetic chronic kidney disease; E11.42 Type 2 diabetes mellitus with diabetic polyneuropathy; E78.00 Pure hypercholesterolemia, unspecified; E03.9 Hypothyroidism, unspecified; H81.10 Benign paroxysmal vertigo, unspecified ear; I08.1 Rheumatic disorders of both mitral and tricuspid valves; I25.10 Atherosclerotic heart disease of native coronary artery without angina pectoris; I44.7 Left bundle-branch block, unspecified; I48.0 Paroxysmal atrial fibrillation; N25.0 Renal osteodystrophy; Z95.5 Presence of coronary angioplasty implant and graft; Z99.2 Dependence on renal dialysis; Z85.528 Personal history of other malignant neoplasm of kidney; Z90.49 Acquired absence of other specified parts of digestive tract; Z98.41 Cataract extraction status, right eye; Z98.42 Cataract extraction status, left eye; Z79.01 Long term (current) use of anticoagulants; Z87.891 Personal history of nicotine dependence
CPT/HCPCS: 36415; 36600; 70450; 71045; 71046; 80048; 80053; 80202; 82565; 82805; 82948; 83605; 83690; 83735; 83880; 84100; 84145; 84439; 84443; 84484; 85025; 85027; 87040; 87636; 93005; 93306; 94640; 96366; 96367; 96375; 97161; 97165; 97530; 97535; A9270; C1751; C8929; G0257; G0378; J0282; J0692; J0743; J1644; J1956; J2270; J2370; J2405; J3370; J3475; J7030; J7040; J7060; P9047; Q5105